=== PATIENT | female | born 1945 | race Caucasian/White ===

== ENCOUNTER → 2017-11-23 10:15 | Outpatient (CLI) | payer MEDICARE, BC, SELFPAY ==
--- NOTE | 2017-11-23 10:20 | RAD_ITS ---
STUDY: X-RAY - ABDOMEN/PELVIS REASON FOR EXAM: Female, 72 years old. Verification of common bile duct placement. I TECHNIQUE: Upright views of the abdomen were obtained. COMPARISON: Comparison is made with prior study dated October 12, 2017. FINDINGS: Elevation of the right hemidiaphragm. The lung bases are clear. There is an unremarkable bowel gas pattern. There is no demonstrated free abdominal air. The appearance of the common bile duct stent is unchanged. Normal soft tissue structures. Normal visualized osseous structures. RAD/Abdomen Single View IMPRESSION: Stable appearance of the common bile duct stent. Electronically Signed: Efrain Rawls MD at 15:57 EST Tel [phone], Service support ,
== END ==
PROVIDERS: Family Provider Family Medicine Geriatric Medicine; PCP Family Medicine Geriatric Medicine; Visit Provider Internal Medicine Gastroenterology
DX: Z96.89 Presence of other specified functional implants (principal)
CPT/HCPCS: 74018

== ENCOUNTER 2017-11-24 12:20 | Day surgery (SDC) | payer MEDICARE, BC, SELFPAY ==
[2017-11-24 12:46] VITALS: BP 166/63; PULSE 76; RESP 16; TEMP 36.8; O2SAT 100; BMI 32.2
[2017-11-24 13:01] LABS: Bedside Glucose 120 mg/dL (70-110)
--- NOTE | 2017-11-24 14:00 | RAD_ITS ---
STUDY: ERCP. REASON FOR EXAM: Female, 72 years old. Biliary stent removal. 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 COMPARISON: Comparison is made with prior examination dated August 11, 2017. FINDINGS: The biliary stent has been removed. Contrast was injected into the common bile duct. No intraluminal filling defect is seen. RAD/ERCP Biliary Only IMPRESSION: Removal of the biliary stent. No filling defect is seen. Electronically Signed: Efrain Rawls MD at 15:22 EST Tel [phone], Service support ,
[2017-11-24 15:15] VITALS: BP 138/72; BP 141/68; BP 166/63; PULSE 70; RESP 16; TEMP 36.6; O2SAT 98
--- NOTE | 2017-11-24 15:24 | OP.PCM_ITS ---
Operative Report Date of Procedure: 11/24/17 Preop diagnosis: Patient with cystic duct leak Postop diagnosis: ERCP with balloon cholangiogram no evidence of cystic duct leak Anesthesia: The MAC Instrument: Olympus duodenoscope Informed consent was taken prior to procedure. The patient was brought to the radiology suite[ she] was placed left shoulder down. Retropharynx was sprayed with topical Cetacaine spray. Anesthesia provided the MAC. The scope was passed under direct visualization down into the esophagus. The scope was advanced into the stomach pylorus was identified the duodenum was intubated. In the second portion of the duodenum was the ampulla along with a diverticulum. Stent was protruding from the common bile duct a snare was used to grasp the stent and pulled out through the channel. 9/12 mm balloon was used with a guidewire to cannulate the common bile duct under fluoroscopy. With a wire in the common bile duct tract contrast was injected under fluoroscopy visualization of the common bile duct and left hepatic duct. Cystic duct was identified and there was no extravasation of contrast from the cystic duct. Guidewire and balloon were withdrawn the stomach was decompressed the scope was withdrawn patient tolerated the procedure well. Impression: Cystic duct leak post a 10 Moldovan stent for approximately 3 months the cystic duct is completely closed Plan: Observe the patient postprocedure CC: Dr. Sterling and Dr. Jung
[2017-11-24 15:30] VITALS: BP 142/74; BP 166/63; PULSE 64; RESP 16; O2SAT 99
[2017-11-24 15:35] VITALS: BP 144/78; BP 166/63; PULSE 64; RESP 16; TEMP 36.7; O2SAT 100
== END 2017-11-24 16:10 | disposition home or self-care (01) ==
LOC: SDC 12:21 → AC 12:22
PROVIDERS: Family Provider Family Medicine Geriatric Medicine; PCP Family Medicine Geriatric Medicine; Visit Provider Internal Medicine Gastroenterology
PROC: (CPT 43260; principal; 2017-11-24 13:00)
DX: K91.89 Other postprocedural complications and disorders of digestive system (principal); I10 Essential (primary) hypertension; E11.9 Type 2 diabetes mellitus without complications; Z79.82 Long term (current) use of aspirin; Z79.899 Other long term (current) drug therapy; Z85.51 Personal history of malignant neoplasm of bladder
CPT/HCPCS: 00732; 43275; 74328; 82962; J7120; C1769; J1610

== ENCOUNTER → 2017-12-21 12:18 | Outpatient (CLI) | payer MEDICARE, BC, SELFPAY ==
[2017-12-21 12:48] LABS: Absolute Lymphocyte Count 1.28 X10^3/ul (0.83-4.51); Basophil# 0.03 X10^3/uL; Basophil% 0.5 % (0-1); Eosinophil# 0.14 X10^3/uL; Eosinophils% 2.3 % (0-5); Hematocrit 38.6 % (37-47); Hemoglobin 12.8 g/dl (12.0-15.0); Lymphocyte # 1.28 X10^3/ul (4.0); Lymphocyte % 21.1 % (19-41); Mean Corp Hgb Conc 33.2 g/gl (32-36); Mean Corpuscular Hgb 29.1 pg (27.0-32.0); Mean Corpuscular Volume 87.7 fL (81-99); Mean Platelet Vol. 11.2 fl (6.2-12.0); Monocyte# 0.59 X10^3/uL; Monocyte% 9.7 % (0-10); Neutrophil # 4.01 X10^3/uL (2.7-7.7); Neutrophil % 66.2 % (47-70); Platelet Count 264 K/mm3 (150-450); RBC Distribution Width CV 12.8 % (11.6-14.6); White Blood Count 6.1 K/mm3 (4.4-11.0)
[2017-12-21 12:56] LABS: POSITIVE COUNT NO; POSITIVE DIFFERENTIAL NO; POSITIVE MORPHOLOGY NO
[2017-12-21 13:05] LABS: Vitamin D,25 Hydroxy 17.8 ng/mL (29.95-100.01)
[2017-12-21 13:09] LABS: ALB/GLOB Ratio 1.1 RATIO (0.9-2.4); AST(SGOT) 18 U/L (15-37); Alanine Aminotransfer ALT/SGPT 23 U/L (13-56); Albumin, Serum 3.7 g/dL (3.2-5.0); Alkaline Phosphatase 76 U/L (45-117); Anion Gap 10 (5-15); BUN 14 mg/dL (7-18); BUN/Creat Ratio 27.7 RATIO (10-20); Calcium,Total 9.3 mg/dL (8.5-10.1); Chloride 101 mmol/L (98-107); EST Glomerular Filtration Rate 128 mL/min (>60); Est Glom Filt Rate - Afr Amer 155 mL/min (>60); Globulin 3.4 g/dL (2.2-4.2); Glucose 97 mg/dL (74-106); Potassium 3.9 mmol/L (3.5-5.1); Protein, Total 7.1 g/dL (6.4-8.2); Sodium Level 138 mmol/L (136-145); Thyroid Stim Hormone (TSH) 1.57 uIU/mL (0.358-3.74)
[2017-12-23 11:29] LABS: Hep C Antibodies 0.1 s/co ratio (0.0-0.9)
== END ==
PROVIDERS: Family Provider Family Medicine Geriatric Medicine; PCP Family Medicine Geriatric Medicine; Visit Provider Family Medicine Geriatric Medicine
DX: E11.9 Type 2 diabetes mellitus without complications (principal); E55.9 Vitamin D deficiency, unspecified; I10 Essential (primary) hypertension; Z13.89 Encounter for screening for other disorder
CPT/HCPCS: 36415; 80053; 82306; 84443; 85025; 86803

== ENCOUNTER → 2018-02-15 16:38 | Outpatient (CLI) | payer MEDICARE, BC, SELFPAY ==
--- NOTE | 2018-02-15 | CYSPIN_PTH ---
PATIENT: ITZ VEGAS LOC: [facility] U#:[id number] AGE/SX: 79/F ROOM: RE02/15/[address]: PRABHJOT Alonso : 1945 BED: DIS: SPEC #: [id number] RECD: 02/15/18 10:30 STATUS: RODO SERENE #: [id number] ANDREY: 02/15/18 00:[address]: Ena Hairston NP DEPT: CYTOLOGY RECD BY: Orestes Narayanan ENTERED: 02/16/18 12:24 SP TYPE: CYSPIN FL OTHR DR: Dr. Jaya Jung MD Tissues: Urine Procedures: Pap Stain (control) Special Stain Group II Cytospin Fluid HEADER OPERATION: Not noted PRE-OP DIAGNOSIS: History bladder cancer TISSUE SUBMITTED: Urine for cytology DIAGNOSIS CYTOLOGY Urine for cytology (cytospin): Negative for malignant cells. See comment. AM:ruslan 5/23/18 COMMENT The specimen primarily contains squamous epithelial cells. Clinical correlation is suggested. CYTOLOGY STUDY Slides are reviewed. CYTOLOGY GROSS Received is 70 ml of clear yellow fluid labeled with the patient's name and and designated per the requisition as urine. Submitted for cytology preparation. 02/16/18 TC:5 CPT: 20488
[2018-02-15 16:40] LABS: Cytology, Body Fluid / CSF SEE PATHOLOGY REPORT
== END ==
PROVIDERS: Family Provider Family Medicine Geriatric Medicine; PCP Family Medicine Geriatric Medicine; Visit Provider Nurse Practitioner Adult Health
DX: Z85.51 Personal history of malignant neoplasm of bladder (principal)
CPT/HCPCS: 88108; 88313

== ENCOUNTER → 2018-05-14 10:52 | Outpatient (CLI) | payer MEDICARE, BC, SELFPAY | PROVIDERS: Family Provider Family Medicine Geriatric Medicine; PCP Family Medicine Geriatric Medicine; Visit Provider Obstetrics & Gynecology | DX: Z12.31 Encounter for screening mammogram for malignant neoplasm of breast (principal) | CPT/HCPCS: 77063; 77067 ==

== ENCOUNTER → 2018-06-21 11:04 | Outpatient (CLI) | payer MEDICARE, BC, SELFPAY ==
[2018-06-21 12:32] LABS: Absolute Lymphocyte Count 2.19 X10^3/ul (0.83-4.51); Absolute Neutrophil Count 4.9 X10^3/uL (2.0-7.7); Basophil# 0.04 X10^3/uL; Basophil% 0.5 % (0-1); Eosinophil# 0.12 X10^3/uL; Eosinophils% 1.5 % (0-5); Hemoglobin 12.7 g/dl (12.0-15.0); Lymphocyte # 2.19 X10^3/ul (4.0); Lymphocyte % 27.9 % (19-41); Mean Corp Hgb Conc 32.6 g/gl (32-36); Mean Corpuscular Hgb 29.3 pg (27.0-32.0); Mean Corpuscular Volume 90.1 fL (81-99); Mean Platelet Vol. 11.2 fl (6.2-12.0); Monocyte% 7.6 % (0-10); Neutrophil # 4.89 X10^3/uL (2.7-7.7); Neutrophil % 62.4 % (47-70); Platelet Count 267 K/mm3 (150-450); RBC Distribution Width CV 13.2 % (11.6-14.6); RBC Distribution Width SD 42.9 fl (35.1-43.9); Red Blood Count 4.33 M/mm3 (4.2-5.4); White Blood Count 7.9 K/mm3 (4.4-11.0)
[2018-06-21 12:35] LABS: POSITIVE COUNT NO; POSITIVE DIFFERENTIAL NO; POSITIVE MORPHOLOGY NO
[2018-06-21 12:54] LABS: Vitamin D,25 Hydroxy 52.9 ng/mL (29.95-100.01)
[2018-06-21 12:55] LABS: ALB/GLOB Ratio 0.9 RATIO (0.9-2.4); AST(SGOT) 18 U/L (15-37); Alanine Aminotransfer ALT/SGPT 30 U/L (13-56); Albumin, Serum 3.5 g/dL (3.2-5.0); Alkaline Phosphatase 76 U/L (45-117); Anion Gap 10 (5-15); BUN 13 mg/dL (7-18); BUN/Creat Ratio 20.6 RATIO (10-20); Calcium,Total 9.1 mg/dL (8.5-10.1); Chloride 102 mmol/L (98-107); Creatinine, Serum 0.63 mg/dL (0.55-1.02); EST Glomerular Filtration Rate 99 mL/min (>60); Est Glom Filt Rate - Afr Amer 120 mL/min (>60); Globulin 3.7 g/dL (2.2-4.2); Glucose 100 mg/dL (74-106); Protein, Total 7.2 g/dL (6.4-8.2); Sodium Level 139 mmol/L (136-145); Thyroid Stim Hormone (TSH) 1.35 uIU/mL (0.358-3.74)
== END ==
PROVIDERS: Family Provider Family Medicine Geriatric Medicine; PCP Family Medicine Geriatric Medicine; Visit Provider Family Medicine Geriatric Medicine
DX: E11.9 Type 2 diabetes mellitus without complications (principal); E55.9 Vitamin D deficiency, unspecified; I10 Essential (primary) hypertension
CPT/HCPCS: 36415; 80053; 82306; 84443; 85025

== ENCOUNTER 2018-08-16 14:32 | Inpatient (IN) | payer MEDICARE, BC, SELFPAY ==
[2018-08-16] VITALS (12 sets, daily range): BP systolic 116–154; BP diastolic 53–70; PULSE 77–115; RESP 18–27; TEMP 36.4–38.5; O2SAT 92–96; BMI 33.3; BMI 33.6
--- NOTE | 2018-08-16 14:50 | CT_ITS ---
STUDY: CT ABDOMEN AND PELVIS WITHOUT CONTRAST REASON FOR EXAM: Female, 72 years old. Abdominal pain, nausea and diarrhea over the past 2 hours. Diet-controlled diabetes. RADIATION DOSAGE (If Supplied By Facility): CTDIvol = ( 14.62 ) mGy, DLP = ( 713.64 ) mGycm TECHNIQUE: Transaxial images were obtained from the dome of the diaphragm to the symphysis pubis without oral contrast, and without intravenous contrast. Sagittal and coronal images were reconstructed. Individualized dose optimization techniques were used for this CT. COMPARISON: CT of the abdomen and pelvis, August 14, 2017. FINDINGS: The visualized lung bases are unremarkable. There is resolution of the bilateral pleural effusions and atelectasis seen on the prior study. The visualized portions of the heart are within normal limits. There is hepatomegaly with diffuse hepatic enlargement. The liver is diffusely fatty infiltrated without mass. There is resolution of the pneumobilia and biliary stent seen on the prior study. Normal gallbladder and extrahepatic biliary system. There is no visualized gallstone. Normal spleen. Normal pancreas. Normal bilateral adrenal glands. The right kidney is of normal size and cortical thickness. There is mild stranding of perinephric fat. There is no evidence of mass or renal calculi. There is mild hydronephrosis there is ureterectasis and periureteral stranding to the urinary bladder without filling defect. Normal left kidney. Normal left ureter. Normal visualized stomach. Normal small intestine. Normal colon. There is non-visualization of the appendix. There is diffuse atherosclerotic calcification of the abdominal aorta, without a demonstrated aneurysm. Normal inferior vena cava. Normal retroperitoneum. Normal urinary bladder. Normal vaginal cuff. There are metallic staple along the right dome of the bladder as well as along left pelvic sidewall thought to be secondary to the hysterectomy. There is no pelvic lymphadenopathy. No free air or free fluid is seen within the peritoneal cavity. A surgical drain seen in the right lower quadrant no prior studies no longer present. There are small ventral hernias of omental fat. Abdominal wall appears otherwise unremarkable. There is flattening of lumbar lordosis with mild degenerative changes. CT/Abdomen/Pelvis without Cont IMPRESSION: 1. Right hydronephrosis and ureterectasis with mild perirenal and periureteral stranding. The findings suggest recently passed renal calculus. 2. Enlarged fatty infiltrated liver without mass. 3. Status post hysterectomy. 4. Ventral hernias of omental fat. 5. Degenerative changes of the lumbar spine. 6. Resolution of the bilateral pleural effusions seen on the prior study. 7. Resolution of the pneumobilia, biliary stent and surgical drain seen on the previous examination. Electronically Signed: Saurav Lai DO at 16:56 EST Tel [phone], Service support ,
--- NOTE | 2018-08-16 14:51 | EKG12_ITS ---
Test Reason : DYSRHYTHMIA Blood Pressure : / mmHG Vent. Rate : 101 BPM Atrial Rate : 101 BPM P-R Int : 184 ms QRS Dur : 092 ms QT Int : 358 ms P-R-T Axes : 075 003 065 degrees QTc Int : 464 ms Sinus tachycardia Possible Inferior infarct , age undetermined Abnormal ECG Confirmed by KRISTAL TRINH, GORGE ([id number]), editorial assistant YOU TALLEY ([id number]) on 08/18/2018 11:21:02 AM Referred By: KAYLA Confirmed By:GORGE GIRALDO MD
[2018-08-16] MEDS: Ondansetron 4 MG/2 ML Vial IV (15:03)
[2018-08-16] MEDS: 0.9% Normal Saline 1,000 ML 1000 ML IV (15:03)
[2018-08-16 15:04] LABS: Absolute Lymphocyte Count 0.64 X10^3/ul (0.83-4.51); Absolute Neutrophil Count 16.7 X10^3/uL (2.0-7.7); Basophil# 0.04 X10^3/uL; Basophil% 0.2 % (0-1); Differential Indicated SCAN CRITERIA MET; Eosinophil# 0.01 X10^3/uL; Eosinophils% 0.1 % (0-5); Hematocrit 39.4 % (37-47); Hemoglobin 13.4 g/dl (12.0-15.0); Lymphocyte # 0.64 X10^3/ul (4.0); Lymphocyte % 3.3 % (19-41); Mean Corpuscular Hgb 30.2 pg (27.0-32.0); Mean Corpuscular Volume 88.9 fL (81-99); Mean Platelet Vol. 11.1 fl (6.2-12.0); Monocyte# 1.83 X10^3/uL; Monocyte% 9.5 % (0-10); Neutrophil # 16.73 X10^3/uL (2.7-7.7); Neutrophil % 86.6 % (47-70); POSITIVE COUNT NO; POSITIVE DIFFERENTIAL YES; POSITIVE MORPHOLOGY NO; Platelet Count 236 K/mm3 (150-450); RBC Distribution Width CV 13.1 % (11.6-14.6); RBC Distribution Width SD 42.3 fl (35.1-43.9); Red Blood Count 4.43 M/mm3 (4.2-5.4); White Blood Count 19.3 K/mm3 (4.4-11.0)
[2018-08-16 15:15] LABS: Anion Gap 9 (5-15); BUN 22 mg/dL (7-18); BUN/Creat Ratio 28.1 RATIO (10-20); Calcium,Total 9.2 mg/dL (8.5-10.1); Chloride 106 mmol/L (98-107); Creatinine, Serum 0.78 mg/dL (0.55-1.02); EST Glomerular Filtration Rate 77 mL/min (>60); Est Glom Filt Rate - Afr Amer 93 mL/min (>60); Estimated Creatinine Clearance 42.68 ml/min; Glucose 154 mg/dL (74-106); Potassium 3.6 mmol/L (3.5-5.1); Sodium Level 139 mmol/L (136-145)
[2018-08-16 15:21] LABS: Differential Comment SCANNED
--- NOTE | 2018-08-16 15:50 | ED.DCSUM_ITS ---
- ER Visit Summary Date of Service: 08/16/18 Chief Complaint: Abdominal pain flank pain and syncope History of Present Illness: The patient is a 72 F presenting for evaluation secondary to abdominal pain flank pain and syncope. Patient states that today she had a relatively precipitous onset of abdominal pain, right-sided back pain, nausea without vomiting, and some loose stools. Patient states that she had 2 episodes of non-bloody non-mucousy stools. Patient states that she suffered a syncopal episode while she was in the bathroom. Her found her, and states that she was acting somewhat confused. Patient denies any fevers. She does endorse that she has some dysuria, and states that she has been having some since she had cystoscopy performed approximately a week ago for surveillance secondary to a history of bladder cancer. She denies any chest pain. Patient has a history of diet-controlled diabetes hypertension and high cholesterol. Physical Examination: Vital signs notable for tachycardia with a heart rate of 109. Well-nourished female no acute distress. Dry mucous membranes noted, neck was supple no JVD. Heart was tachycardic and regular. Lungs sound clear. Abdomen was soft and nontender with no real reproducible tenderness to palpation, but patient complaining of pain in the right lower quadrant. Abdomen was nondistended normal bowel sounds no masses. Peripheral pulses were +2 and symmetric remainder of physical otherwise unremarkable. Test Results: CBC demonstrates leukocytosis of 19, chemistry unremarkable troponin negative. EKG demonstrates sinus tachycardia with a rate of 101. T waves are now upright, but there appears to be development of inferior Q waves which are new from an EKG in July of last year. CT abdomen and pelvis demonstrates evidence of perinephric stranding on the right Emergency Department Course and Treatment: Patient presented for evaluation secondary to abdominal pain and syncope. Laboratory workup shows leukocytosis. Urinalysis currently pending, but CT shows evidence of possible right-sided pyelonephritis. Regardless, patient has EKG changes, in the setting of syncope and I believe she requires admission. Patient will be given antibiotics upon receipt of her urinalysis, and will be admitted to the hospitalist after her CT is resulted. Disposition: Admission Impression: 1. Pyelonephritis 2. Abdominal pain 3. Leukocytosis 4. Syncope with EKG changes This note was generated with [employer] dictation software. It may contain incorrect words, spelling, and punctuation that were not noted in review of the chart prior to signing ED Disposition - Plan for ED Patient: Chief Complaint: Abd Pain Referrals: Jaya Jung Chi, MD [Primary Care Provider] -
[2018-08-16 16:03] LABS: Mucous, Urine 0 SEEN /hpf (<or=2+)
[2018-08-16] MEDS: Ceftriaxone 1 GM/50 ML BAG IV (16:05)
[2018-08-16 16:17] LABS: Color, Urine Yellow (Yellow); Glucose, Dipstick Normal (Normal); Ketone-Dipstick Negative (Negative); Leukocyte Esterase-Dipstick 500 /ul (Negative); Nitrite-Dipstick Positive (Negative); Occult Blood-Urine 250 /ul (Negative); Protein-Dipstick 100 mg/dl (Negative); Urine Bilirubin Dipstick Negative (Negative); Urine Clarity Cloudy (Clear); Urine Urobilinogen Normal (Normal)
[2018-08-16 16:36] LABS: Bacteria 2+ /hpf (None Seen); Red Blood Cells-Urine 10-25 SEEN /hpf (0-5); Squamous Epithelial Cells - UA 0-5 SEEN /hpf (5-10); White Blood Cells >100 SEEN /hpf (0-5)
[2018-08-16] MEDS: Ibuprofen 600 MG Tablet PO (17:00)
--- NOTE | 2018-08-16 17:42 | PCM.HP.STD ---
Problem List (1) Near syncope Status: Acute (2) Sepsis Status: Acute (3) Acute pyelonephritis Status: Acute (4) HLD (hyperlipidemia) Status: Chronic (5) HTN (hypertension) Status: Chronic History of Present Illness Date of Admission: 08/16/18 Chief Complaint: Dysuria, lower abdominal pain. The patient is a 72 year old F with past medical history as mentioned above presented to the emergency room because of dysuria and lower abdominal pain. Her symptoms started 5 days ago. 5 days ago, she had cystoscopy done as outpatient for history of bladder polyps and she was informed by the urologist that she had bladder mass that require biopsy which will be done in 3 weeks. Starting that date of cystoscopy, patient started complaining of lower abdominal pain, suprapubic in location, dull aching pain, 5 out of 10 in severity, extends up to the right side of her groin and close to the right flank, associated with dysuria as well as rigors and chills and without aggravating or relieving factors. She mentioned that she felt hot in the last couple of days but she did not check her temperature. She reported associated weakness and malaise. Today at home, she was standing and she felt dizzy and she was about to pass out. She stated that she was alert and awake of the event and she did not lose her consciousness completely. She denied chest pain, shortness of breath or palpitation. In the emergency department, she was febrile, tachycardic, blood pressure was stable and her pulse ox was normal. Routine blood work was marked before a significant leukocytosis with neutrophilia, otherwise normal. Lactic acid was normal. EKG revealed sinus tachycardia, no acute ischemic changes or cardiac arrhythmias. Her troponin was negative. CT scan abdomen and pelvis without contrast revealed right hydronephrosis and ureterectasis with perirenal and periureteral stranding. She is being admitted for acute pyelonephritis with sepsis. Past Medical History Past Medical History (Chronic Problems): Chronic Problems (Last Updated 08/16/18 @ 17:41 by Kristian Gómez MD) Postoperative atrial fibrillation (Chronic) HLD (hyperlipidemia) (Chronic) HTN (hypertension) (Chronic) Medical History: Medical History (Last Updated 08/16/18 @ 17:41 by Kristian Gómez MD) Postoperative atrial fibrillation (Chronic) I97.89, I48.91 HLD (hyperlipidemia) (Chronic) E78.5 HTN (hypertension) (Chronic) I10 Long-term use of high-risk medication Z79.899 Allergies codeine Allergy (Verified 08/16/18 16:29) Rash Penicillins [PCN] Allergy (Verified 08/16/18 14:35) Rash Home Medications: Ambulatory Orders Medication Instructions Recorded Aspirin [Aspir-Low] 81 mg PO DAILY 08/08/17 Clonidine HCl 0.1 mg PO BID 08/08/17 Ergocalciferol [Vitamin D] 50,000 units PO VASQUEZ 08/08/17 Tizanidine HCl [Zanaflex] 4 mg PO BID PRN 08/08/17 Zolpidem Tartrate [Ambien] 10 mg PO QHS PRN 08/08/17 metoprolol succinate ER 50 mg 50 mg PO DAILY 09/08/17 tablet,extended release 24 hr valsartan 320 1 tab PO DAILY 09/08/17 mg-hydrochlorothiazide 12.5 mg tablet ALPRAZolam [Xanax] 1 mg PO BID PRN PRN 08/16/18 Atorvastatin Calcium [Lipitor] 40 mg PO QHS 08/16/18 Buspirone HCl 10 mg PO TID 08/16/18 Surgical History: cholecystectomy Psychiatric History: Anxiety, Depression 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 Denies: Fever Eyes: Denies: Blurred vision, Double vision, Drainage, Redness HEENT: Denies: Difficulty Hearing, Dysphasia, Ear Pain, Eye Pain, Nasal Congestion, Post Nasal Drip, Sore Throat Cardiovascular: Reports: Light Headedness. Denies: Chest Pain, Chest Pressure, Chest Tightness, Edema, Palpitations, Paroxysmal Noc. Dyspnea, Syncope Respiratory: Denies: Cough, Pleuritic Pain, Shortness of Breath, Sputum production, Wheezing Gastrointestinal: Reports: Abdominal Pain. Denies: Constipation, Diarrhea, Hematochezia, Nausea, Melena, Vomiting Genitourinary: Reports: Dysuria. Denies: Frequency, Hematuria Musculoskeletal: Denies: Arm Pain, Back Pain, Foot Pain Skin: Denies: Dryness, Rash Neurological: Denies: Balance problems, Double vision, Slurred speech, Confusion, Focal weakness, Headaches, Incoordination Psychiatric: Reports: Anxiety, Depression Endocrine: Denies: Change in Body Habitus, Polydipsia VTE Information - Inpt Only VTE Present on Admission: No VTE Mechan Device Prophylaxis: None VTE Pharm Prophylaxis ordered?: Yes Patient Problems: Active and Suspected Problems (Last Updated 08/16/18 @ 17:41 by Kristian Gómez MD) Near syncope (Acute) Sepsis (Acute) Acute pyelonephritis (Acute) - Physical Exam General: Alert, Oriented x3, Cooperative, No apparent distress HEENT: Atraumatic, PERRLA, EOMI, Normocephalic Oral: Moist Mucosa, No Gingival or Mucosal Lesions/ Ulcerations Neck: Supple, No JVD, Negative Carotid Bruits, Trachea Midline, Thyroid Normal Size and Texture Lungs: Clear to auscultation, No rhonchi, No wheeze, No rales, Diminished Cardiovascular: Regular rate, Regular Rhythm, Normal S1, Normal S2, No murmurs, PMI Normal, Tachycardic Abdomen: Bowel Sounds Present, Soft, Non Tender, Non-Distended, No Hepato-splenomegaly Extremities: No clubbing, No cyanosis, No edema Skin: No rashes, No breakdown Lymphatic: No Cervical, Supraclavicular, or Inguinal Adenopathy Neurological: Cranial nerves II-XII grossly intact, Motor Exam 5/5 strength throughout Psych/Mental Status: Normal Affect, Appropriate, Alert and oriented to time, place, person, mood and affect Vital Signs Temp Pulse Resp BP Pulse Ox 100.6 F H 109 H 18 139/70 H 93 08/16/18 16:25 08/16/18 14:33 08/16/18 14:33 08/16/18 14:33 08/16/18 14:33 Oxygen Delivery Method Room Air Weight: 188 lb Body Mass Index (BMI) 33.3 Laboratory Tests Past 24 Hrs 08/16/18 08/16/18 08/16/18 14:40 14:40 15:53 WBC 19.3 H RBC 4.43 Hgb 13.4 Hct 39.4 MCV 88.9 MCH 30.2 MCHC 34.0 RDW 13.1 RDW Differential 42.3 Plt Count 236 MPV 11.1 Immature Gran % (Auto) 0.300 Neut % (Auto) 86.6 H Lymph % (Auto) 3.3 L Nicholas % (Auto) 9.5 Eos % (Auto) 0.1 Baso % (Auto) 0.2 Absolute Neuts (auto) 16.7 H Absolute Lymphs (auto) 0.64 L Total Counted Not Reportable Differential Comment SCANNED Sodium 139 Potassium 3.6 Chloride 106 Carbon Dioxide 24.0 Anion Gap 9 BUN 22 H Creatinine 0.78 Estim Creat Clear Calc 42.68 Est GFR (MDRD) Af Amer 93 Est GFR (MDRD) Non-Af 77 BUN/Creatinine Ratio 28.1 H Glucose 154 H Calcium 9.2 Troponin I < 0.015 Urine Color Yellow Urine Clarity Cloudy Urine pH 6.0 Ur Specific [place] 1.010 Urine Protein 100 H Urine Glucose (UA) Normal Urine Ketones Negative Urine Occult Blood 250 H Urine Nitrite Positive H Urine Bilirubin Negative Urine Urobilinogen Normal Ur Leukocyte Esterase 500 H Urine RBC 10-25 SEEN Urine WBC >100 SEEN Ur Squamous Epith Cells 0-5 SEEN Urine Bacteria 2+ Urine Mucus 0 SEEN Clinical Impression(s) from Imaging Studies Abdomen/Pelvis CT 08/16/18 14:50 IMPRESSION: 1. Right hydronephrosis and ureterectasis with mild perirenal and periureteral stranding. The findings suggest recently passed renal calculus. 2. Enlarged fatty infiltrated liver without mass. 3. Status post hysterectomy. 4. Ventral hernias of omental fat. 5. Degenerative changes of the lumbar spine. 6. Resolution of the bilateral pleural effusions seen on the prior study. 7. Resolution of the pneumobilia, biliary stent and surgical drain seen on the previous examination. Electronically Signed: Saurav Lai DO at 16:56 EST Tel [phone], Service support , Assessment/Plan All Active Problems (Last Updated 08/16/18 @ 17:41 by Kristian Gómez MD) Near syncope (Acute) Sepsis (Acute) Acute pyelonephritis (Acute) This is a 72 years old female patient presented to the emergency room because of dysuria, suprapubic abdominal pain and chills in context of recent history of cystoscopy, found to have acute pyelonephritis and sepsis. #1 acute pyelonephritis/sepsis: Urine analysis revealed cloudy urine, positive for nitrite and leukocyte esterase, there was more than 100 WBC and 2+ bacteria consistent with pyuria. CT scan abdomen and pelvis without contrast reviewed, revealed right hydronephrosis with perirenal and periureteral stranding. Patient had cystoscopy done 5 days ago and she is at risk for gram-negative and enterococcal bacteremia. Lactic acid is normal. She is tachycardic, febrile, blood pressure stable. Plan: Admit to PCU, cardiac monitoring, IV fluids, blood culture, urine culture, start IV cefepime because she is allergic to penicillin, and Protopic chart, repeat CBC and BMP tomorrow morning, Tylenol as needed, antiemetics, PT OT evaluation and treatment. #2 right hydronephrosis: With possible passed kidney stone. She had recent cystoscopy done for bladder mass. Her kidney function is normal. Plan: Urology consult. #3 near syncope: Probably vasovagal episode. Patient mentioned that she was not completely out of and she was aware of surroundings. She reported dizziness before the episode. She denied chest pain or palpitations. EKG revealed sinus tachycardia, no cardiac arrhythmias or acute ischemic changes. Troponin is negative. Plan to treat underlying infection and sepsis. #4 status post recent cystoscopy: This was done for bladder mass according to the patient, no documents available. Plan to consult urology as above. #5 hypertension: Blood pressure stable, continue metoprolol, clonidine, valsartan and HCTZ. #6 hyperlipidemia: Continue statins. #7 depression/anxiety: Continue Xanax and buspirone. #8 DVT prophylaxis: subcu Lovenox. This note was generated with [employer] dictation software. It may contain incorrect words, spelling, and punctuation that were not noted in checking the note before signing. Code Visit Inpatient E&M: 67439 Init Hosp L3
--- NOTE | 2018-08-16 17:50 | HP.PCM_ITS ---
Problem List (1) Near syncope Status: Acute (2) Sepsis Status: Acute (3) Acute pyelonephritis Status: Acute (4) HLD (hyperlipidemia) Status: Chronic (5) HTN (hypertension) Status: Chronic History of Present Illness Date of Admission: 08/16/18 Chief Complaint: Dysuria, lower abdominal pain. The patient is a 72 year old F with past medical history as mentioned above presented to the emergency room because of dysuria and lower abdominal pain. Her symptoms started 5 days ago. 5 days ago, she had cystoscopy done as outpatient for history of bladder polyps and she was informed by the urologist that she had bladder mass that require biopsy which will be done in 3 weeks. Starting that date of cystoscopy, patient started complaining of lower abdominal pain, suprapubic in location, dull aching pain, 5 out of 10 in severity, extends up to the right side of her groin and close to the right flank, associated with dysuria as well as rigors and chills and without aggravating or relieving factors. She mentioned that she felt hot in the last couple of days but she did not check her temperature. She reported associated weakness and malaise. Today at home, she was standing and she felt dizzy and she was about to pass out. She stated that she was alert and awake of the event and she did not lose her consciousness completely. She denied chest pain, shortness of breath or palpitation. In the emergency department, she was febrile, tachycardic, blood pressure was stable and her pulse ox was normal. Routine blood work was marked before a significant leukocytosis with neutrophilia, otherwise normal. Lactic acid was normal. EKG revealed sinus tachycardia, no acute ischemic changes or cardiac arrhythmias. Her troponin was negative. CT scan abdomen and pelvis without contrast revealed right hydronephrosis and ureterectasis with perirenal and periureteral stranding. She is being admitted for acute pyelonephritis with sepsis. Past Medical History Past Medical History (Chronic Problems): Chronic Problems (Last Updated 08/16/18 @ 17:41 by Kristian Gómez MD) Postoperative atrial fibrillation (Chronic) HLD (hyperlipidemia) (Chronic) HTN (hypertension) (Chronic) Medical History: Medical History (Last Updated 08/16/18 @ 17:41 by Kristian Gómez MD) Postoperative atrial fibrillation (Chronic) I97.89, I48.91 HLD (hyperlipidemia) (Chronic) E78.5 HTN (hypertension) (Chronic) I10 Long-term use of high-risk medication Z79.899 Allergies codeine Allergy (Verified 08/16/18 16:29) Rash Penicillins [PCN] Allergy (Verified 08/16/18 14:35) Rash Home Medications: Ambulatory Orders Medication Instructions Recorded Aspirin [Aspir-Low] 81 mg PO DAILY 08/08/17 Clonidine HCl 0.1 mg PO BID 08/08/17 Ergocalciferol [Vitamin D] 50,000 units PO VASQUEZ 08/08/17 Tizanidine HCl [Zanaflex] 4 mg PO BID PRN 08/08/17 Zolpidem Tartrate [Ambien] 10 mg PO QHS PRN 08/08/17 metoprolol succinate ER 50 mg 50 mg PO DAILY 09/08/17 tablet,extended release 24 hr valsartan 320 1 tab PO DAILY 09/08/17 mg-hydrochlorothiazide 12.5 mg tablet ALPRAZolam [Xanax] 1 mg PO BID PRN PRN 08/16/18 Atorvastatin Calcium [Lipitor] 40 mg PO QHS 08/16/18 Buspirone HCl 10 mg PO TID 08/16/18 Surgical History: cholecystectomy Psychiatric History: Anxiety, Depression POST ANESTHESIA CARE UNIT NURSE History: No pertinent POST ANESTHESIA CARE UNIT NURSE history Smoking Status: Never smoker Alcohol: None Drugs: None - *Family History Maternal Family History: Family History (Last Reviewed 03/09/18 @ 15:48 by Jonathan Gerard MD) Mother Atrial fibrillation Father Atrial fibrillation CVA (cerebral vascular accident) Brother CVA (cerebral vascular accident) Review of Systems Constitutional: Reports: Anorexia, Chills, Malaise, Weakness. Denies: Fever Eyes: Denies: Blurred vision, Double vision, Drainage, Redness HEENT: Denies: Difficulty Hearing, Dysphasia, Ear Pain, Eye Pain, Nasal Congestion, Post Nasal Drip, Sore Throat Cardiovascular: Reports: Light Headedness. Denies: Chest Pain, Chest Pressure, Chest Tightness, Edema, Palpitations, Paroxysmal Noc. Dyspnea, Syncope Respiratory: Denies: Cough, Pleuritic Pain, Shortness of Breath, Sputum production, Wheezing Gastrointestinal: Reports: Abdominal Pain. Denies: Constipation, Diarrhea, Hematochezia, Nausea, Melena, Vomiting Genitourinary: Reports: Dysuria. Denies: Frequency, Hematuria Musculoskeletal: Denies: Arm Pain, Back Pain, Foot Pain Skin: Denies: Dryness, Rash Neurological: Denies: Balance problems, Double vision, Slurred speech, Confusion, Focal weakness, Headaches, Incoordination Psychiatric: Reports: Anxiety, Depression Endocrine: Denies: Change in Body Habitus, Polydipsia VTE Information - Inpt Only VTE Present on Admission: No VTE Mechan Device Prophylaxis: None VTE Pharm Prophylaxis ordered?: Yes Patient Problems: Active and Suspected Problems (Last Updated 08/16/18 @ 17:41 by Kristian Gómez MD) Near syncope (Acute) Sepsis (Acute) Acute pyelonephritis (Acute) - Physical Exam General: Alert, Oriented x3, Cooperative, No apparent distress HEENT: Atraumatic, PERRLA, EOMI, Normocephalic Oral: Moist Mucosa, No Gingival or Mucosal Lesions/ Ulcerations Neck: Supple, No JVD, Negative Carotid Bruits, Trachea Midline, Thyroid Normal Size and Texture Lungs: Clear to auscultation, No rhonchi, No wheeze, No rales, Diminished Cardiovascular: Regular rate, Regular Rhythm, Normal S1, Normal S2, No murmurs, PMI Normal, Tachycardic Abdomen: Bowel Sounds Present, Soft, Non Tender, Non-Distended, No Hepato- splenomegaly Extremities: No clubbing, No cyanosis, No edema Skin: No rashes, No breakdown Lymphatic: No Cervical, Supraclavicular, or Inguinal Adenopathy Neurological: Cranial nerves II-XII grossly intact, Motor Exam 5/5 strength th roughout Psych/Mental Status: Normal Affect, Appropriate, Alert and oriented to time, place, person, mood and affect Vital Signs Temp Pulse Resp BP Pulse Ox 100.6 F H 109 H 18 139/70 H 93 08/16/18 16:25 08/16/18 14:33 08/16/18 14:33 08/16/18 14:33 08/16/18 14:33 Oxygen Delivery Method Room Air Weight: 188 lb Body Mass Index (BMI) 33.3 Laboratory Tests Past 24 Hrs 08/16/18 08/16/18 08/16/18 14:40 14:40 15:53 WBC 19.3 H RBC 4.43 Hgb 13.4 Hct 39.4 MCV 88.9 MCH 30.2 MCHC 34.0 RDW 13.1 RDW Differential 42.3 Plt Count 236 MPV 11.1 Immature Gran % (Auto) 0.300 Neut % (Auto) 86.6 H Lymph % (Auto) 3.3 L [place] % (Auto) 9.5 Eos % (Auto) 0.1 Baso % (Auto) 0.2 Absolute Neuts (auto) 16.7 H Absolute Lymphs (auto) 0.64 L Total Counted Not Reportable Differential Comment SCANNED Sodium 139 Potassium 3.6 Chloride 106 Carbon Dioxide 24.0 Anion Gap 9 BUN 22 H Creatinine 0.78 Estim Creat Clear Calc 42.68 Est GFR (MDRD) Af Amer 93 Est GFR (MDRD) Non-Af 77 BUN/Creatinine Ratio 28.1 H Glucose 154 H Calcium 9.2 Troponin I < 0.015 Urine Color Yellow Urine Clarity Cloudy Urine pH 6.0 Ur Specific [place] 1.010 Urine Protein 100 H Urine Glucose (UA) Normal Urine Ketones Negative Urine Occult Blood 250 H Urine Nitrite Positive H Urine Bilirubin Negative Urine Urobilinogen Normal Ur Leukocyte Esterase 500 H Urine RBC 10-25 SEEN Urine WBC >100 SEEN Ur Squamous Epith Cells 0-5 SEEN Urine Bacteria 2+ Urine Mucus 0 SEEN Clinical Impression(s) from Imaging Studies Abdomen/Pelvis CT 08/16/18 14:50 IMPRESSION: 1. Right hydronephrosis and ureterectasis with mild perirenal and periureteral stranding. The findings suggest recently passed renal calculus. 2. Enlarged fatty infiltrated liver without mass. 3. Status post hysterectomy. 4. Ventral hernias of omental fat. 5. Degenerative changes of the lumbar spine. 6. Resolution of the bilateral pleural effusions seen on the prior study. 7. Resolution of the pneumobilia, biliary stent and surgical drain seen on the previous examination. Electronically Signed: Saurav Lai DO at 16:56 EST Tel [phone], Service support , Assessment/Plan All Active Problems (Last Updated 08/16/18 @ 17:41 by Kristian Gómez MD) Near syncope (Acute) Sepsis (Acute) Acute pyelonephritis (Acute) This is a 72 years old female patient presented to the emergency room because of dysuria, suprapubic abdominal pain and chills in context of recent history of cystoscopy, found to have acute pyelonephritis and sepsis. #1 acute pyelonephritis/sepsis: Urine analysis revealed cloudy urine, positive for nitrite and leukocyte esterase, there was more than 100 WBC and 2+ bacteria consistent with pyuria. CT scan abdomen and pelvis without contrast reviewed, revealed right hydronephrosis with perirenal and periureteral stranding. Patient had cystoscopy done 5 days ago and she is at risk for gram-negative and enterococcal bacteremia. Lactic acid is normal. She is tachycardic, febrile, blood pressure stable. Plan: Admit to PCU, cardiac monitoring, IV fluids, blood culture, urine culture, start IV cefepime because she is allergic to penicillin, and Protopic chart, repeat CBC and BMP tomorrow morning, Tylenol as needed, antiemetics, PT OT evaluation and treatment. #2 right hydronephrosis: With possible passed kidney stone. She had recent cystoscopy done for bladder mass. Her kidney function is normal. Plan: Urology consult. #3 near syncope: Probably vasovagal episode. Patient mentioned that she was not completely out of and she was aware of surroundings. She reported dizziness before the episode. She denied chest pain or palpitations. EKG revealed sinus tachycardia, no cardiac arrhythmias or acute ischemic changes. Troponin is negative. Plan to treat underlying infection and sepsis. #4 status post recent cystoscopy: This was done for bladder mass according to the patient, no documents available. Plan to consult urology as above. #5 hypertension: Blood pressure stable, continue metoprolol, clonidine, valsartan and HCTZ. #6 hyperlipidemia: Continue statins. #7 depression/anxiety: Continue Xanax and buspirone. #8 DVT prophylaxis: subcu Lovenox. This note was generated with [employer] dictation software. It may contain incorrect words, spelling, and punctuation that were not noted in checking the note before signing. Code Visit Inpatient E&M: 23853 Init Hosp L3
[2018-08-16 18:41] LABS: Lactic Acid 1.3 mmol/L (0.4-2.0)
[2018-08-16] MEDS: 0.9% Normal Saline 1,000 ML 100 ML IV (18:53)
[2018-08-16] MEDS: 0.9% NaCl Peripheral Flush Adult/Peds IV (18:55)
[2018-08-16] MEDS: Acetaminophen 325 MG Tablet 650 MG PO (19:10)
[2018-08-16] MEDS: busPIRone 15 MG TABLET 10 MG PO (21:52)
[2018-08-16] MEDS: cloNIDine HCl 0.1 MG Tablet PO (21:53)
[2018-08-16] MEDS: Atorvastatin Calcium 40 MG Tablet PO (21:53)
[2018-08-17] VITALS (11 sets, daily range): BP systolic 136–155; BP diastolic 55–63; PULSE 76–95; RESP 18–20; TEMP 37.1–38.2; O2SAT 94–99
[2018-08-17] MEDS: Ondansetron 4 MG/2 ML Vial IV ×2 (04:53→16:49)
[2018-08-17] MEDS: 0.9% NaCl Peripheral Flush Adult/Peds IV ×3 (04:53→16:49)
[2018-08-17] MEDS: Acetaminophen 325 MG Tablet 650 MG PO ×3 (04:53→20:39)
[2018-08-17] MEDS: busPIRone 15 MG TABLET 10 MG PO ×3 (05:03→20:38)
[2018-08-17] MEDS: 0.9% Normal Saline 1,000 ML 100 ML IV ×2 (05:07→15:16)
[2018-08-17 07:24] LABS: Absolute Lymphocyte Count 1.18 X10^3/ul (0.83-4.51); Absolute Neutrophil Count 15.7 X10^3/uL (2.0-7.7); Basophil# 0.03 X10^3/uL; Basophil% 0.2 % (0-1); Eosinophil# 0.01 X10^3/uL; Eosinophils% 0.1 % (0-5); Hematocrit 34.7 % (37-47); Hemoglobin 11.4 g/dl (12.0-15.0); Lymphocyte # 1.18 X10^3/ul (4.0); Lymphocyte % 6.3 % (19-41); Mean Corp Hgb Conc 32.9 g/gl (32-36); Mean Corpuscular Hgb 29.8 pg (27.0-32.0); Mean Corpuscular Volume 90.6 fL (81-99); Mean Platelet Vol. 10.9 fl (6.2-12.0); Monocyte# 1.77 X10^3/uL; Monocyte% 9.5 % (0-10); Neutrophil # 15.69 X10^3/uL (2.7-7.7); Neutrophil % 83.6 % (47-70); Platelet Count 206 K/mm3 (150-450); RBC Distribution Width CV 13.3 % (11.6-14.6); RBC Distribution Width SD 43.4 fl (35.1-43.9); Red Blood Count 3.83 M/mm3 (4.2-5.4); White Blood Count 18.7 K/mm3 (4.4-11.0)
--- NOTE | 2018-08-17 07:24 | PN_ITS ---
Patient Problems: Active and Suspected Problems (Last Updated 08/16/18 @ 17:41 by Kristian Gómez MD) Near syncope (Acute) Sepsis (Acute) Acute pyelonephritis (Acute) Subjective: Patient was admitted with right-sided renal angle pain, suprapubic discomfort and pain, fever with chills and dysuria lower urinary tract symptoms after 5 days of cystoscopy suggestive of complicated UTI with pyelonephritis. Currently patient does not have renal angle pain Or suprapubic pain. On IV cefepime. Seen by urologist Dr. Alvarado Vitals/I&O's: Vital Signs Temp Pulse Resp BP Pulse Ox 100.3 F H 95 20 H 155/58 H 96 08/17/18 04:42 08/17/18 04:42 08/17/18 04:42 08/17/18 04:42 08/17/18 04:42 Oxygen Delivery Method Room Air Weight: 190 lb 0.615 oz Body Mass Index (BMI) 33.6 Intake and Output for Last 24 Hours 08/15/18 08/16/18 08/17/18 23:59 23:59 23:59 Intake Total 520 / 520 726 / 726 Balance 520 / 520 726 / 726 General: Alert, Oriented x3, Cooperative HEENT: Atraumatic, PERRLA, EOMI, Normocephalic Neck: Supple, No JVD, Negative Carotid Bruits Lungs: Clear to auscultation, Normal air movement, No rhonchi, No wheeze, No rales Cardiovascular: Regular rate, Regular Rhythm, Normal S1, Normal S2, No murmurs Abdomen: Bowel Sounds Present, Soft, Non-Distended, No Hepato-splenomegaly, Tender - Mild deep tenderness present over right renal angle. No suprapubic tenderness Extremities: No edema, Capillary Refill Less than 3 Seconds Skin: No rashes, No breakdown Musculoskeletal: No Tenderness to Palpation of Joints or Extremities, Arthritic Changes Neurological: Cranial nerves II-XII grossly intact Psych/Mental Status: Normal Affect, Appropriate Laboratory Results 08/16/18 14:40: WBC 19.3 H, RBC 4.43, Hgb 13.4, Hct 39.4, MCV 88.9, MCH 30.2, MCHC 34.0, RDW 13.1, RDW Differential 42.3, Plt Count 236, MPV 11.1, Immature Gran % (Auto) 0.300, Neut % (Auto) 86.6 H, Lymph % (Auto) 3.3 L, [place] % (Auto) 9.5, Eos % (Auto) 0.1, Baso % (Auto) 0.2, Absolute Neuts (auto) 16.7 H, Absolute Lymphs (auto) 0.64 L, Total Counted Not Reportable, Differential Comment SCANNED 08/16/18 14:40: Sodium 139, Potassium 3.6, Chloride 106, Carbon Dioxide 24.0, Anion Gap 9, BUN 22 H, Creatinine 0.78, Estim Creat Clear Calc 42.68, Est GFR (MDRD) Af Amer 93, Est GFR (MDRD) Non-Af 77, BUN/Creatinine Ratio 28.1 H, Glucose 154 H, Calcium 9.2, Troponin I < 0.015 08/16/18 15:53: Urine Color Yellow, Urine Clarity Cloudy, Urine pH 6.0, Ur Specific [place] 1.010, Urine Protein 100 H, Urine Glucose (UA) Normal, Urine Ketones Negative, Urine Occult Blood 250 H, Urine Nitrite Positive H, Urine Bilirubin Negative, Urine Urobilinogen Normal, Ur Leukocyte Esterase 500 H, Urine RBC 10-25 SEEN, Urine WBC >100 SEEN, Ur Squamous Epith Cells 0-5 SEEN, Urine Bacteria 2+, Urine Mucus 0 SEEN 08/16/18 17:50: Lactic Acid 1.3 08/17/18 07:00: WBC Pending, RBC Pending, Hgb Pending, Hct Pending, MCV Pending, MCH Pending, MCHC Pending, RDW Pending, RDW Differential Pending, Plt Count Pending, Neut % (Auto) Pending, Absolute Neuts (auto) Pending, Total Counted Pending 08/17/18 07:00: Sodium Pending, Potassium Pending, Chloride Pending, Carbon Dioxide Pending, Anion Gap Pending, BUN Pending, Creatinine Pending, Est GFR (MD MARTINEZ) Af Amer Pending, Est GFR (MDRD) Non-Af Pending, BUN/Creatinine Ratio Pending, Glucose Pending, Calcium Pending Current Medications Acetaminophen (Tylenol) 650 mg PO Q6H PRN PRN PRN Reason: Fever, headache, pain Last Admin: 08/17/18 04:53 Dose: 650 mg Alprazolam (Xanax) 1 mg PO BID PRN PRN PRN Reason: ANXIETY Aspirin (Ecotrin) 81 mg PO DAILY@0800 [facility] Atorvastatin Calcium (Lipitor) 40 mg PO QHS [facility] Last Admin: 08/16/18 21:53 Dose: 40 mg Buspirone HCl (Buspar) 10 mg PO TID [facility] Last Admin: 08/17/18 05:03 Dose: 10 mg Clonidine (Catapres) 0.1 mg PO BID [facility] Last Admin: 08/16/18 21:53 Dose: 0.1 mg Enoxaparin Sodium (Lovenox) 40 mg SC DAILY@1000 [facility] Hydrochlorothiazide (Hydrochlorothiazide) 12.5 mg PO DAILY [facility] Sodium Chloride () 1,000 mls @ 100 mls/hr IV .Q10H [facility] Last Admin: 08/17/18 05:07 Dose: 100 mls/hr Cefepime HCl 2 gm/ Sodium (Chloride) 50 mls @ 100 mls/hr IV Q12@0600,1800 [facility] Last Admin: 08/17/18 05:07 Dose: 100 mls/hr Sodium Chloride () 250 mls @ 15 mls/hr IV .[id number] PRN PRN Reason: SALINE FLUSH Losartan Potassium (Cozaar) 100 mg PO DAILY [facility] Magnesium Hydroxide (Milk Of Magnesia) 30 ml PO DAILY PRN PRN Reason: Constipation Metoprolol Succinate (Toprol Xl (Beta Penny)) 50 mg PO DAILY [facility] Ondansetron HCl (Zofran) 4 mg IV Q8H PRN PRN PRN Reason: NAUSEA/VOMITING Last Admin: 08/17/18 04:53 Dose: 4 mg Sodium Chloride () 5 - 30 ml IV UD PRN PRN Reason: SALINE FLUSH Last Admin: 08/17/18 04:53 Dose: 20 ml Zolpidem Tartrate (Ambien (Generic)) 5 mg PO QHS PRN PRN Reason: INSOMNIA Medical Necessity - Tobacco Use Smoking Status: Never smoker Assessment/Plan All Active Problems (Last Updated 08/16/18 @ 17:41 by Kristian Gómez MD) Near syncope (Acute) Sepsis (Acute) Acute pyelonephritis (Acute) This is a 72 years old female patient presented to the emergency room because of dysuria, suprapubic abdominal pain and chills in context of recent history of cystoscopy, found to have acute pyelonephritis and sepsis. #1 SIRS (fever, tachycardia and leukocytosis but normal lactic acid) with sepsis due to acute right-sided pyelonephritis after cystoscopy consistent with complicated UTI: Urine analysis revealed cloudy urine, positive for nitrite and leukocyte esterase, there was more than 100 WBC and 2+ bacteria consistent with pyuria. CT scan abdomen and pelvis without contrast reviewed, revealed right hydronephrosis with perirenal and periureteral stranding. Patient had cystoscopy done 5 days ago. Preliminary urine culture shows presumptive E. coli more than 100,000 colonies per mL. Blood cultures x2 are pending. Lactic acid is normal. She is tachycardic, febrile, blood pressure stable. Patient is on IV fluid normal saline. On IV cefepime. She had mild reaction to penicillin at early age but she grew out of it but never had airway swelling or anaphylactic reaction. Continue monitoring electrolytes, CBC and kidney function. Urology consult reviewed and appreciated. Needs to follow-up outpatient repeat cystoscopy for bladder polyp biopsy. #2 right hydronephrosis with right perinephric and periureteric stranding consistent with pyelonephritis: With possible passed kidney stone. She had recent cystoscopy done for bladder mass. Her kidney function is normal. #3 near syncope: Probably vasovagal episode. Patient mentioned that she was not completely out of and she was aware of surroundings. She reported dizziness before the episode. She denied chest pain or palpitations. EKG revealed sinus tachycardia, no cardiac arrhythmias or acute ischemic changes. Troponin is negative. Plan to treat underlying infection and sepsis. #4 status post recent cystoscopy: This was done for bladder mass according to the patient, no documents available. #5 hypertension: Blood pressure stable, continue metoprolol, clonidine, valsartan and HCTZ. #6 hyperlipidemia: Continue statins. #7 depression/anxiety: Continue Xanax and buspirone. #8 DVT prophylaxis: subcu Lovenox. Code Visit Inpatient E&M: 32843 [facility] Hosp L3
[2018-08-17 07:25] LABS: Differential Indicated SCAN CRITERIA MET; POSITIVE COUNT NO; POSITIVE DIFFERENTIAL YES; POSITIVE MORPHOLOGY NO
--- NOTE | 2018-08-17 07:40 | PCM.PN.BLA ---
Progress Note clinically better today has right pyelonephritis. has appt for biopsy for cauterization of polyp coming up in two weeks, keep appt. urine culture pending.
[2018-08-17 07:46] LABS: Anion Gap 9 (5-15); BUN 19 mg/dL (7-18); BUN/Creat Ratio 31.7 RATIO (10-20); Calcium,Total 8.1 mg/dL (8.5-10.1); Chloride 112 mmol/L (98-107); EST Glomerular Filtration Rate 105 mL/min (>60); Est Glom Filt Rate - Afr Amer 126 mL/min (>60); Estimated Creatinine Clearance 40.81 ml/min; Glucose 146 mg/dL (74-106); Potassium 3.5 mmol/L (3.5-5.1); Sodium Level 145 mmol/L (136-145)
--- NOTE | 2018-08-17 08:01 | NURSING ---
Pt IV infiltrated this AM. Likely that Cefepime was infiltrated as well. Right arm elevated on pillow. Warm compress applied. Avi Moore, [employer]able [employer] Technician made aware.
[2018-08-17] MEDS: Losartan Potassium 100 MG Tablet PO (10:01)
[2018-08-17] MEDS: cloNIDine HCl 0.1 MG Tablet PO ×2 (10:01→20:38)
[2018-08-17] MEDS: Aspirin E.C. 81 MG Tablet PO (10:01)
[2018-08-17] MEDS: Enoxaparin 40 MG/0.4 ML Syringe SC (10:01)
[2018-08-17] MEDS: hydroCHLOROthiazide 12.5mg 12.5 MG PO (10:01)
[2018-08-17] MEDS: Metoprolol(XL)Succ 50 MG Tablet PO (10:04)
--- NOTE | 2018-08-17 10:35 | CASEMGMT ---
KIESHA MORELAND assessment: Face to Face with patient for initial transition planning/care coordination assessment. KIESHA MORELAND introduced self and role at [facility], pt voices understanding and consents to assessment at this time. Pt is lying in bed in no distress at this time. Pt is A/Ox4 at this time and answers all questions appropriately at this time. Care providers, pharmacy, and demographics verified at this time. PCP: [facility] Specialists: Pt states currently has no specialists. Preferred Pharmacy: [facility] Insurance: [facility] A/B, [place] Prescription Benefit: [place] Living Will/HPOA: Pt states has a LW/HPOA but they are not currently on file at [facility]. Pt states that her , Rod Simms, is HPOA. LNOK: Rod Simms, Living Arrangements: Pt states lives with in 1 story home and states no concerns at home at this time. Pt states completes ADL's without any concern at this time. Transportation: Pt states drives self and states no transportation concerns at this time. DME/HHC: Pt states has grab bars and shower chair but does not use. Pt states no need for any further DME at this time. Pt states no hx of HHC or SNF in the past. Pt states no concerns with going home at time of discharge. Pt states does not smoke or drink ETOH. Pt states no further concerns/needs at this time. CM to follow for any further discharge planning/needs. Advised pt to ask for CM if any further questions/concerns/needs arise, voices understanding. Plan: [place] KIESHA MORELAND
[2018-08-17] MEDS: ALPRAZolam 0.5 MG Tablet 1 MG PO (14:05)
[2018-08-17] MEDS: Atorvastatin Calcium 40 MG Tablet PO (20:38)
[2018-08-17] MEDS: Zolpidem Tartrate 5 MG Tablet PO (20:39)
--- NOTE | 2018-08-17 20:41 | NURSING ---
Pt tired, requesting to have meds given at this time.
[2018-08-18] VITALS (9 sets, daily range): BP systolic 125–163; BP diastolic 67–91; PULSE 76–89; RESP 18; TEMP 36.9–37.2; O2SAT 92–99
[2018-08-18] MEDS: 0.9% Normal Saline 1,000 ML 100 ML IV (02:22)
[2018-08-18] MEDS: Acetaminophen 325 MG Tablet 650 MG PO (05:11)
[2018-08-18] MEDS: busPIRone 15 MG TABLET 10 MG PO ×2 (05:11→15:09)
[2018-08-18] MEDS: Ondansetron 4 MG/2 ML Vial IV (05:43)
[2018-08-18] MEDS: 0.9% NaCl Peripheral Flush Adult/Peds IV (05:43)
[2018-08-18 06:24] LABS: Anion Gap 11 (5-15); BUN 13 mg/dL (7-18); BUN/Creat Ratio 26.1 RATIO (10-20); Calcium,Total 7.9 mg/dL (8.5-10.1); Chloride 113 mmol/L (98-107); EST Glomerular Filtration Rate 130 mL/min (>60); Est Glom Filt Rate - Afr Amer 157 mL/min (>60); Estimated Creatinine Clearance 40.81 ml/min; Glucose 120 mg/dL (74-106); Potassium 3.7 mmol/L (3.5-5.1); Sodium Level 145 mmol/L (136-145)
[2018-08-18 06:25] LABS: Absolute Lymphocyte Count 1.24 X10^3/ul (0.83-4.51); Absolute Neutrophil Count 13.3 X10^3/uL (2.0-7.7); Basophil# 0.03 X10^3/uL; Basophil% 0.2 % (0-1); Eosinophil# 0.03 X10^3/uL; Eosinophils% 0.2 % (0-5); Hematocrit 33.9 % (37-47); Hemoglobin 11.1 g/dl (12.0-15.0); Lymphocyte # 1.24 X10^3/ul (4.0); Lymphocyte % 7.6 % (19-41); Mean Corp Hgb Conc 32.7 g/gl (32-36); Mean Corpuscular Volume 91.6 fL (81-99); Mean Platelet Vol. 11.3 fl (6.2-12.0); Monocyte# 1.77 X10^3/uL; Monocyte% 10.8 % (0-10); Neutrophil # 13.28 X10^3/uL (2.7-7.7); Neutrophil % 80.8 % (47-70); Platelet Count 197 K/mm3 (150-450); RBC Distribution Width CV 13.5 % (11.6-14.6); White Blood Count 16.4 K/mm3 (4.4-11.0)
[2018-08-18 06:27] LABS: Differential Indicated SCAN CRITERIA MET; POSITIVE COUNT NO; POSITIVE DIFFERENTIAL YES; POSITIVE MORPHOLOGY NO
[2018-08-18] MEDS: Aspirin E.C. 81 MG Tablet PO (08:16)
[2018-08-18] MEDS: cloNIDine HCl 0.1 MG Tablet PO (08:17)
[2018-08-18] MEDS: Losartan Potassium 100 MG Tablet PO (08:17)
[2018-08-18] MEDS: hydroCHLOROthiazide 12.5mg 12.5 MG PO (08:17)
[2018-08-18] MEDS: Enoxaparin 40 MG/0.4 ML Syringe SC (08:17)
[2018-08-18] MEDS: Metoprolol(XL)Succ 50 MG Tablet PO (08:24)
--- NOTE | 2018-08-18 09:32 | DCINST_ITS ---
- Discharge Diagnoses Current Active Problems: Current Active and Chronic Problems (Last Updated 08/16/18 @ 17:41 by Kristian Gómez MD) Near syncope (Acute) Sepsis (Acute) Acute pyelonephritis (Acute) You will use the following diet at home:: Cardiac - 2 gm Na diet Your food should be the consistency of: Regular Discharge Activity: May not drive while taking narcotic pain medications. Call your doctor if you observe: Fever of 101 or Higher, Numbness or Tingling, Inability to have a bowel movement, Shortness of breath, Dizziness, Fainting spells, Increased palpitations (irregular heartbeat) Allergies/Adverse Reactions: Allergies codeine Allergy (Verified 08/16/18 16:29) Rash Penicillins [PCN] Allergy (Verified 08/16/18 14:35) Rash Medications to take at Discharge Aspirin [Aspir-Low] 81 mg PO DAILY 08/08/17 Clonidine HCl 0.1 mg PO BID 08/08/17 Ergocalciferol [Vitamin D] 50,000 units PO VASQUEZ 08/08/17 Tizanidine HCl [Zanaflex] 4 mg PO BID PRN 08/08/17 Zolpidem Tartrate [Ambien] 10 mg PO QHS PRN 08/08/17 metoprolol succinate ER 50 mg tablet,extended release 24 hr 50 mg PO DAILY 09/08/17 valsartan 320 mg-hydrochlorothiazide 12.5 mg tablet 1 tab PO DAILY 09/08/17 ALPRAZolam [Xanax] 1 mg PO BID PRN PRN 08/16/18 Atorvastatin Calcium [Lipitor] 40 mg PO QHS 08/16/18 Buspirone HCl 10 mg PO TID 08/16/18 Ciprofloxacin [Cipro] 500 mg PO BID #20 tablet 08/18/18 Lactobacillus Acidophilus [Acidophilus] 1 each PO TID #30 capsule 08/18/18 The following prescriptions were given: Ciprofloxacin [Cipro] 500 mg PO BID #20 tablet Lactobacillus Acidophilus [Acidophilus] 1 each PO TID #30 capsule Primary Care Physician: Jaya Jung Chi, MD [Primary Care Provider] - Please follow up with your Primary Care Physician in: in 1-2 weeks Test Results: Test results from this visit will be discussed in further detail at your follow- up appointment, if applicable. Please Follow Up With: Allen Alvarado MD When: in 2 weeks for follow up Cystoscopy and polyp biopsy
--- NOTE | 2018-08-18 09:32 | PCM.DC.SUM ---
Discharge Date and Diagnosis Date of Admission: 08/16/18 Date of Discharge: 08/18/18 - Primary Discharge Diagnosis Active and Suspected Problems (Last Updated 08/16/18 @ 17:41 by Kristian Gómez MD) Near syncope (Acute) Sepsis (Acute) Acute pyelonephritis (Acute) SIRS (fever, tachycardia and leukocytosis but normal lactic acid) with sepsis due to acute right-sided pyelonephritis after cystoscopy consistent with complicated Ecoli UTI/pyelonephritis - Secondary Discharge Diagnosis Chronic Problems (Last Updated 08/16/18 @ 17:41 by Kristian Gómez MD) Postoperative atrial fibrillation (Chronic) HLD (hyperlipidemia) (Chronic) HTN (hypertension) (Chronic) Hospital Course and Treatment Operations: cholecystecomy - Partial cholecystectomy, biliary drain placement and removal, sphincterectomy, ERCP - With stent placement Summary of Care Provided: [] This is a 72 years old female patient presented to the emergency room because of dysuria, suprapubic abdominal pain and chills in context of recent history of cystoscopy, found to have acute pyelonephritis and sepsis. #1 SIRS (fever, tachycardia and leukocytosis but normal lactic acid) with sepsis due to acute right-sided pyelonephritis after cystoscopy consistent with complicated Ecoli UTI: Urine analysis revealed cloudy urine, positive for nitrite and leukocyte esterase, there was more than 100 WBC and 2+ bacteria consistent with pyuria. Tachycardia and fever resolved. Leukocytosis trending down. CT scan abdomen and pelvis without contrast reviewed, revealed right hydronephrosis with perirenal and periureteral stranding. Patient had cystoscopy done 5 days ago. urine culture reported E. coli more than 100,000 colonies, pansensitive to ampicillin and fluoroquinolones. Blood cultures x2 are negative for more than 48 hours. Lactic acid is normal. Patient is on IV fluid normal saline. On IV cefepime. She had mild reaction to penicillin at early age but she grew out of it but never had airway swelling or anaphylactic reaction. patient's lab electrolytes, CBC and kidney function were monitored. Urology consult reviewed and appreciated. Patient is discharged on Cipro 500 mg twice daily for 10 more days to complete a total of 12 days of antibiotic patient advised to follow with Dr. Alvarado in 2 weeks. For repeat cystoscopy and bladder polyp biopsy and cauterization. #2 right hydronephrosis with right perinephric and periureteric stranding consistent with pyelonephritis: With possible passed kidney stone. She had recent cystoscopy done for bladder mass. Rest as above #3 near syncope: Probably vasovagal episode. Patient mentioned that she was not completely out of and she was aware of surroundings. She reported dizziness before the episode. She denied chest pain or palpitations. EKG revealed sinus tachycardia, no cardiac arrhythmias or acute ischemic changes. Troponin is negative. Plan to treat underlying infection and sepsis. #4 status post recent cystoscopy: This was done for bladder mass according to the patient, no documents available. #5 hypertension: Blood pressure stable, continue metoprolol, clonidine, valsartan and HCTZ. #6 hyperlipidemia: Continue statins. #7 depression/anxiety: Continue Xanax and buspirone. #8 DVT prophylaxis: subcu Lovenox. Patient is discharged home on antibiotic. Discharge medication reconciliation done. Discharge meds and follow-up instructions were discussed with the patient and her daughter Total time spent, exact 35 minutes on discharge meds reconciliation, examination, review of imaging and blood test and discussion with the patient on follow-up instructions. Subjective: No fever or chills. No renal angle/flank pain or nausea or vomiting or headache. Patient walking comfortably around nursing station. - Physical Exam General: Alert, Oriented x3, Cooperative HEENT: Atraumatic, PERRLA, EOMI, Normocephalic Neck: Supple, No JVD, Negative Carotid Bruits Lungs: Clear to auscultation, Normal air movement, No rhonchi, No wheeze, No rales Cardiovascular: Regular rate, Regular Rhythm, Normal S1, Normal S2, No murmurs Abdomen: Bowel Sounds Present, Soft, Non Tender, Non-Distended, - - No hematuria Extremities: No edema, Capillary Refill Less than 3 Seconds Skin: No rashes, No breakdown Musculoskeletal: No Tenderness to Palpation of Joints or Extremities Neurological: Cranial nerves II-XII grossly intact Psych/Mental Status: Normal Affect, Appropriate Vital Signs Temp Pulse Resp BP Pulse Ox 98.7 F 76 18 159/91 H 97 08/18/18 08:20 08/18/18 08:24 08/18/18 08:20 08/18/18 08:20 08/18/18 08:20 Oxygen Delivery Method Room Air Weight: 190 lb 0.615 oz Body Mass Index (BMI) 33.6 Intake and Output for Last 24 Hours 08/16/18 08/17/18 08/18/18 23:59 23:59 23:59 Intake Total 520 / 520 2684 / 2684 1132 / 1132 Balance 520 / 520 2684 / 2684 1132 / 1132 Microbiology Past 72 Hours 08/16/18 15:53 Urine Culture - Final Urine, Clean Catch Presumptive E. coli 08/16/18 17:55 Blood Culture - Preliminary Blood Culture (Wb) - Right Hand Laboratory Tests Past 24 Hrs 08/18/18 08/18/18 05:05 05:05 WBC 16.4 H RBC 3.70 L Hgb 11.1 L Hct 33.9 L MCV 91.6 MCH 30.0 MCHC 32.7 RDW 13.5 RDW Differential 44.0 H Plt Count 197 MPV 11.3 Immature Gran % (Auto) 0.400 Neut % (Auto) 80.8 H Lymph % (Auto) 7.6 L [place] % (Auto) 10.8 H Eos % (Auto) 0.2 Baso % (Auto) 0.2 Absolute Neuts (auto) 13.3 H Absolute Lymphs (auto) 1.24 Total Counted Not Reportable Sodium 145 Potassium 3.7 Chloride 113 H Carbon Dioxide 21.0 Anion Gap 11 BUN 13 Creatinine 0.50 L Estim Creat Clear Calc 40.81 Est GFR (MDRD) Af Amer 157 Est GFR (MDRD) Non-Af 130 BUN/Creatinine Ratio 26.1 H Glucose 120 H Calcium 7.9 L Discharge Activity: May not drive while taking narcotic pain medications. Call your doctor if you observe: Fever of 101 or Higher, Numbness or Tingling, Inability to have a bowel movement, Shortness of breath, Dizziness, Fainting spells, Increased palpitations (irregular heartbeat) Home Medications: Medications to take at Discharge Aspirin [Aspir-Low] 81 mg PO DAILY 08/08/17 Clonidine HCl 0.1 mg PO BID 08/08/17 Ergocalciferol [Vitamin D] 50,000 units PO VASQUEZ 08/08/17 Tizanidine HCl [Zanaflex] 4 mg PO BID PRN 08/08/17 Zolpidem Tartrate [Ambien] 10 mg PO QHS PRN 08/08/17 metoprolol succinate ER 50 mg tablet,extended release 24 hr 50 mg PO DAILY 09/08/17 valsartan 320 mg-hydrochlorothiazide 12.5 mg tablet 1 tab PO DAILY 09/08/17 ALPRAZolam [Xanax] 1 mg PO BID PRN PRN 08/16/18 Atorvastatin Calcium [Lipitor] 40 mg PO QHS 08/16/18 Buspirone HCl 10 mg PO TID 08/16/18 Ciprofloxacin [Cipro] 500 mg PO BID #20 tablet 08/18/18 Lactobacillus Acidophilus [Acidophilus] 1 each PO TID #30 capsule 08/18/18 Following Prescrptions Were Given to Patient: Ciprofloxacin [Cipro] 500 mg PO BID #20 tablet Lactobacillus Acidophilus [Acidophilus] 1 each PO TID #30 capsule Primary Care Physician: Jaya Jung Chi, MD [Primary Care Provider] - Please follow up with your Primary Care Physician in: in 1-2 weeks Please Follow Up With: Allen Alvarado MD When: in 2 weeks for follow up Cystoscopy and polyp biopsy Medical Necessity - Tobacco Use Smoking Status: Never smoker Meaningful Use Info Meaningful Use Diagnoses (Choose all that apply): None applicable Code Visit Inpatient E&M: 47314 Disch Hosp
[2018-08-18 15:07] LABS: Pathologist Review Reviewed
--- NOTE | 2018-08-20 09:43 | CASEMGMT ---
RN CM Discharge Follow-up Phone Call: YADIRA: Erica Strata: 3 Call Date: 08/20/18 Discharge Date: 08/18/18 Time of Call: 0940 Duration: 0 ? Admitting Diagnosis: Sepsis secondary to pyelonephritis s/p cystoscopy This RN CM attempted to contact pt via telephone in regard to discharge follow-up. Voicemail received and message left.
== END 2018-08-18 15:16 | disposition home or self-care (01) | DRG 862 ==
LOC: ED 15:10 → PCU 17:46
PROVIDERS: Emergency Medicine; Admitting Provider Hospitalist; Emergency Provider Emergency Medicine; Family Provider Family Medicine Geriatric Medicine; PCP Family Medicine Geriatric Medicine; Visit Provider Internal Medicine
DX: T81.40XA Infection following a procedure, unspecified, initial encounter (principal); A41.51 Sepsis due to Escherichia coli [E. coli]; N10 Acute pyelonephritis; N13.6 Pyonephrosis; T81.44XA Sepsis following a procedure, initial encounter; Y83.8 Other surgical procedures as the cause of abnormal reaction of the patient, or of later complication, without mention of misadventure at the time of the procedure; E78.5 Hyperlipidemia, unspecified; I10 Essential (primary) hypertension; R55 Syncope and collapse; F32.9 Major depressive disorder, single episode, unspecified; F41.9 Anxiety disorder, unspecified
CPT/HCPCS: 36415; 74176; 80048; 81001; 83605; 84484; 85025; 87040; 87086; 87088; 87186; 93005; 97802; 99284; J7030; J7050; A4216; J2405

== ENCOUNTER → 2018-08-30 16:23 | Outpatient (CLI) | payer MEDICARE, BC, SELFPAY ==
[2018-08-16 18:25] VITALS: BMI 33.6
--- NOTE | 2018-08-30 11:30 | BLA_PTH ---
PATIENT: ITZ VEGAS LOC: [facility] U#:[id number] AGE/SX: 80/F ROOM: RE08/30/[address]: Dr. Allen Alvarado MD : 1945 BED: DIS: SPEC #: [id number] RECD: 08/30/18 16:17 STATUS: RODO SERENE #: [id number] ANDREY: 08/30/18 11:[address]: Allen Alvarado DEPT: SURGICAL PATHOLOGY RECD BY: Orestes Narayanan ENTERED: 08/31/18 08:40 SP TYPE: BLADDER BX OTHR DR: Dr. Jaya Jung MD Tissues: Urinary bladder, NOS Procedures: Surgery Specimen Level IV HEADER OPERATION: Bladder biopsy PRE-OP DIAGNOSIS: History bladder CA TISSUE SUBMITTED: Bladder biopsy MICROSCOPIC DIAGNOSIS Bladder, biopsy: A fragment of urothelial mucosa with mild chronic inflammation. Negative for malignancy. SJ:ruslan 09/01/18 COMMENT Please make reference to previous specimen ([id number]) urine for cytology with diagnosis of negative for malignant cells and ([id number]) bladder tissue, TUR with diagnosis of papillary urothelial carcinoma. Correlation with clinical, cystoscopic findings and appropriate follow up are necessary. Case has been reviewed in consultation with Dr. Johnson who concurs with the above diagnosis. IDC:AM MICROSCOPIC DESCRIPTION Slides are reviewed. GROSS DESCRIPTION Received in fixative is one container labeled with the patient's name and designated bladder biopsy. The specimen consists of one irregular fragment of light wrae soft tissue that measures 0.1 cm in greatest dimension. The specimen is totally submitted in one cassette. / SJ:ruslan 08/31/18 TC:3 CPT: 66059
== END ==
PROVIDERS: Family Provider Family Medicine Geriatric Medicine; PCP Family Medicine Geriatric Medicine; Referring Provider Urology; Visit Provider Urology
DX: Z85.51 Personal history of malignant neoplasm of bladder (principal)
CPT/HCPCS: 88305

== ENCOUNTER → 2018-10-29 11:25 | Outpatient (CLI) | payer MEDICARE, BC, SELFPAY ==
[2018-08-16 18:25] VITALS: BMI 33.6
[2018-10-25 14:14] LABS: BUN 16 mg/dL (7-18); Creatinine, Serum 0.73 mg/dL (0.55-1.02); EST Glomerular Filtration Rate 83 mL/min (>60); Est Glom Filt Rate - Afr Amer 101 mL/min (>60)
--- NOTE | 2018-10-29 14:29 | CT_ITS ---
STUDY: CT ABDOMEN AND PELVIS WITH AND WITHOUT CONTRAST REASON FOR EXAM: Female, 73 years old. Bladder cancer follow-up. History of cholecystectomy. RADIATION DOSAGE (If Supplied By Facility): CTDIvol = ( 27.78 ) mGy, DLP = ( 3018.22 ) mGycm TECHNIQUE: Transaxial images were obtained from the dome of the diaphragm to the symphysis pubis without oral contrast. 100mL ml of Isovue 300 contrast was administered. Sagittal and coronal images were reconstructed. Individualized dose optimization techniques were used for this CT. COMPARISON: CT abdomen and pelvis August 16, 2018. FINDINGS: There is minor atelectasis in the inferomedial lung bases The visualized portions of the heart are within normal limits. There is hepatomegaly, the right lobe measuring nearly 20 cm in height and the left lobe extending into the anterior left upper quadrant.. The patent portal vein diameter is 10 mm. Normal gallbladder and extrahepatic biliary system. The diameter of the common bile duct is 5.5 mm. Normal spleen. Normal pancreas. Normal bilateral adrenal glands. Normal right kidney. Normal left kidney. No hydronephrosis. Normal visualized stomach. Normal small intestine. Normal colon. There is non-visualization of the appendix. There is atherosclerotic calcification of the abdominal aorta and proximal iliac arteries, without a demonstrated aneurysm. Normal inferior vena cava. Normal retroperitoneum. Normal urinary bladder. There is absence of the uterus consistent with a prior hysterectomy. There are surgical clips in the expected area of the bilateral adnexa. There are 2 midline defects with small, fat-containing ventral hernias near the level of the umbilicus. The larger 11 mm defect is more inferior, with a hernia measures 2.35 x 1.7 x 2.35 cm. There are multilevel degenerative changes of the visualized spine. CT/CT Abd/Pelvis W/WO Contrast IMPRESSION: 1. Prior hysterectomy and possible nephrectomies. No recurrent pelvic mass or fluid collection. No sign of abdominal/pelvic metastatic disease. 2. The right upper urinary tract distention seen on prior study has resolved. 3. Hepatomegaly. 4. The bowel is unremarkable without sign of obstruction. The appendix not visualized. 5. Aortoiliac atherosclerotic calcific plaquing. No demonstrated aortic aneurysm. 6. Two stable, small, fat-containing midline anterior abdominal wall hernias again noted. Electronically Signed: Carl Devlin MD at 16:56 EST , Service support ,
== END ==
PROVIDERS: Family Provider Family Medicine Geriatric Medicine; PCP Family Medicine Geriatric Medicine; Referring Provider Urology; Visit Provider Urology
DX: N13.30 Unspecified hydronephrosis (principal); Z85.51 Personal history of malignant neoplasm of bladder
CPT/HCPCS: 36415; 74178; 82565; 84520; Q9967; A4216

== ENCOUNTER → 2018-12-27 13:40 | Outpatient (CLI) | payer MEDICARE, BC, SELFPAY ==
[2018-12-23 08:49] VITALS: BMI 33.6
[2018-12-27 14:39] LABS: Absolute Lymphocyte Count 2.34 X10^3/ul (0.83-4.51); Absolute Neutrophil Count 6.7 X10^3/uL (2.0-7.7); Basophil# 0.05 X10^3/uL; Basophil% 0.5 % (0-1); Eosinophil# 0.19 X10^3/uL; Eosinophils% 1.9 % (0-5); Hematocrit 37.6 % (37-47); Hemoglobin 12.4 g/dl (12.0-15.0); Lymphocyte # 2.34 X10^3/ul (4.0); Lymphocyte % 23.1 % (19-41); Mean Corpuscular Hgb 29.4 pg (27.0-32.0); Mean Corpuscular Volume 89.1 fL (81-99); Mean Platelet Vol. 11.4 fl (6.2-12.0); Monocyte# 0.83 X10^3/uL; Monocyte% 8.2 % (0-10); Neutrophil # 6.71 X10^3/uL (2.7-7.7); Neutrophil % 66.2 % (47-70); Platelet Count 248 K/mm3 (150-450); RBC Distribution Width CV 13.6 % (11.6-14.6); RBC Distribution Width SD 44.1 fl (35.1-43.9); Red Blood Count 4.22 M/mm3 (4.2-5.4); White Blood Count 10.1 K/mm3 (4.4-11.0)
[2018-12-27 14:43] LABS: POSITIVE COUNT NO; POSITIVE DIFFERENTIAL NO; POSITIVE MORPHOLOGY NO
[2018-12-27 14:48] LABS: ALB/GLOB Ratio 1.1 RATIO (0.9-2.4); AST(SGOT) 21 U/L (15-37); Alanine Aminotransfer ALT/SGPT 29 U/L (13-56); Albumin, Serum 3.8 g/dL (3.2-5.0); Alkaline Phosphatase 90 U/L (45-117); Anion Gap 9 (5-15); BUN 12 mg/dL (7-18); BUN/Creat Ratio 16.6 RATIO (10-20); Calcium,Total 9.1 mg/dL (8.5-10.1); Chloride 107 mmol/L (98-107); Creatinine, Serum 0.72 mg/dL (0.55-1.02); EST Glomerular Filtration Rate 84 mL/min (>60); Est Glom Filt Rate - Afr Amer 102 mL/min (>60); Globulin 3.4 g/dL (2.2-4.2); Glucose 103 mg/dL (74-106); Potassium 4.6 mmol/L (3.5-5.1); Protein, Total 7.2 g/dL (6.4-8.2); Sodium Level 142 mmol/L (136-145); Thyroid Stim Hormone (TSH) 1.48 uIU/mL (0.358-3.74)
== END ==
PROVIDERS: Family Provider Family Medicine Geriatric Medicine; PCP Family Medicine Geriatric Medicine; Visit Provider Family Medicine Geriatric Medicine
DX: E11.9 Type 2 diabetes mellitus without complications (principal); E55.9 Vitamin D deficiency, unspecified; I10 Essential (primary) hypertension
CPT/HCPCS: 36415; 80053; 82306; 84443; 85025

== ENCOUNTER → 2018-12-29 11:30 | Outpatient (CLI) | payer MEDICARE, BC, SELFPAY ==
--- NOTE | 2018-12-29 09:40 | LES_PTH ---
PATIENT: ITZ VEGAS LOC: [facility] #:[id number] AGE/SX: 79/F ROOM: RE12/29/[address]: Dr. Diogenes Gray MD : 1945 BED: DIS: SPEC #: [id number] RECD: 12/29/18 11:23 STATUS: RODO SERENE #: [id number] ANDREY: 12/29/18 09:[address]: Diogenes Gray DEPT: SURGICAL PATHOLOGY RECD BY: Orestes Narayanan ENTERED: 12/29/18 13:09 SP TYPE: Lesion OTHR DR: Dr. 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 Actinic keratosis and solar elastosis. ENE:ruslan 12/31/18 COMMENT Please make reference to previous specimen ([id number]) left forearm skin lesion with diagnosis of squamous cell carcinoma in situ. Case has been reviewed in consultation with Dr. Mir who concurs with the above diagnosis. IDC:CE MICROSCOPIC DESCRIPTION Slides are reviewed. GROSS DESCRIPTION Received in fixative is one container labeled with the patient's name and designated left cheek. The specimen consists of a ware-white skin ellipse measuring 2.2 x 1 cm and up to 0.4 cm in thickness. A suture is noted at one tip of ellipse identified as lateral and that tip is inked yellow. The medial tip is inked green. The specimen is inked as follows: peripheral margin, superior margin is inked black and inferior margin is inked blue. The specimen is serially sectioned and submitted entirely in two cassettes. Cassette 1 contains the lateral and medial tips. / SJ:ruslan 12/29/18 TC:0 CPT: 28283
[2018-12-29 10:26] VITALS: BMI 33.6
== END ==
PROVIDERS: Family Provider Family Medicine Geriatric Medicine; PCP Family Medicine Geriatric Medicine; Referring Provider Surgery; Visit Provider Surgery
DX: D48.7 Neoplasm of uncertain behavior of other specified sites (principal)
CPT/HCPCS: 88305

== ENCOUNTER → 2019-06-14 16:26 | Outpatient (CLI) | payer MEDICARE, BC, SELFPAY ==
[2018-12-29 10:26] VITALS: BMI 33.6
[2019-06-14 17:19] LABS: Absolute Lymphocyte Count 2.67 X10^3/uL (0.83-4.51); Absolute Neutrophil Count 10.9 X10^3/uL (2.0-7.7); Basophil% 0.7 % (0-1); Hematocrit 42.7 % (37-47); Lymphocyte # 2.67 X10^3/ul (4.0); Lymphocyte % 17.6 % (19-41); Mean Corp Hgb Conc 32.8 g/dL (32-36); Mean Corpuscular Hgb 29.7 pg (27.0-32.0); Mean Corpuscular Volume 90.5 fL (81-99); Mean Platelet Vol. 11.7 fl (6.2-12.0); Monocyte# 1.13 X10^3/uL; Monocyte% 7.5 % (0-10); NRBC Flagged by Analyzer 0 % (0-5); Neutrophil # 10.89 X10^3/uL (2.7-7.7); Neutrophil % 71.7 % (47-70); Platelet Count 295 K/mm3 (150-450); RBC Distribution Width CV 13.7 % (11.6-14.6); RBC Distribution Width SD 45.1 fl (35.1-43.9); Red Blood Count 4.72 M/mm3 (4.2-5.4); White Blood Count 15.2 K/mm3 (4.4-11.0)
[2019-06-14 17:43] LABS: ALB/GLOB Ratio 0.9 RATIO (0.9-2.4); AST(SGOT) 27 U/L (15-37); Alanine Aminotransfer ALT/SGPT 36 U/L (13-56); Albumin, Serum 3.7 g/dL (3.2-5.0); Alkaline Phosphatase 119 U/L (45-117); Anion Gap 9 (5-15); BUN 13 mg/dL (7-18); BUN/Creat Ratio 16.2 RATIO (10-20); Calcium,Total 9.3 mg/dL (8.5-10.1); Chloride 106 mmol/L (98-107); EST Glomerular Filtration Rate 74 mL/min (>60); Est Glom Filt Rate - Afr Amer 90 mL/min (>60); Glucose 133 mg/dL (74-106); Potassium 3.7 mmol/L (3.5-5.1); Protein, Total 7.7 g/dL (6.4-8.2); Sodium Level 142 mmol/L (136-145); Thyroid Stim Hormone (TSH) 1.91 uIU/mL (0.358-3.74)
== END ==
PROVIDERS: Family Provider Family Medicine Geriatric Medicine; PCP Family Medicine Geriatric Medicine; Visit Provider Family Medicine Geriatric Medicine
DX: F05 Delirium due to known physiological condition (principal); R53.83 Other fatigue
CPT/HCPCS: 36415; 80053; 84443; 85025

== ENCOUNTER → 2019-06-23 14:40 | Outpatient (CLI) | payer MEDICARE, BC, SELFPAY ==
[2018-12-29 10:26] VITALS: BMI 33.6
[2019-06-23 15:55] LABS: Absolute Lymphocyte Count 2.86 X10^3/uL (0.83-4.51); Absolute Neutrophil Count 7.2 X10^3/uL (2.0-7.7); Basophil# 0.07 X10^3/uL; Basophil% 0.6 % (0-1); Eosinophil# 0.23 X10^3/uL; Hemoglobin 13.4 g/dL (12.0-15.0); Lymphocyte # 2.86 X10^3/ul (4.0); Lymphocyte % 25.4 % (19-41); Mean Corp Hgb Conc 32.7 g/dL (32-36); Mean Corpuscular Hgb 29.8 pg (27.0-32.0); Mean Corpuscular Volume 91.3 fL (81-99); Monocyte# 0.83 X10^3/uL; Monocyte% 7.4 % (0-10); NRBC Flagged by Analyzer 0 % (0-5); Neutrophil # 7.19 X10^3/uL (2.7-7.7); Neutrophil % 64.1 % (47-70); Platelet Count 241 K/mm3 (150-450); RBC Distribution Width CV 13.3 % (11.6-14.6); RBC Distribution Width SD 44.7 fl (35.1-43.9); Red Blood Count 4.49 M/mm3 (4.2-5.4); White Blood Count 11.2 K/mm3 (4.4-11.0)
[2019-06-23 16:29] LABS: ALB/GLOB Ratio 1.2 RATIO (0.9-2.4); AST(SGOT) 22 U/L (15-37); Alanine Aminotransfer ALT/SGPT 26 U/L (13-56); Alkaline Phosphatase 108 U/L (45-117); Anion Gap 10 (5-15); BUN 13 mg/dL (7-18); BUN/Creat Ratio 21.3 RATIO (10-20); Calcium,Total 9.3 mg/dL (8.5-10.1); Chloride 105 mmol/L (98-107); Creatinine, Serum 0.61 mg/dL (0.55-1.02); EST Glomerular Filtration Rate 102 mL/min (>60); Est Glom Filt Rate - Afr Amer 124 mL/min (>60); Globulin 3.4 g/dL (2.2-4.2); Glucose 100 mg/dL (74-106); Potassium 4.6 mmol/L (3.5-5.1); Protein, Total 7.4 g/dL (6.4-8.2); Sodium Level 141 mmol/L (136-145); Thyroid Stim Hormone (TSH) 1.55 uIU/mL (0.358-3.74)
[2019-06-23 17:00] LABS: Vitamin D,25 Hydroxy 77.9 ng/mL (29.95-100.01)
== END ==
PROVIDERS: Family Provider Family Medicine Geriatric Medicine; PCP Family Medicine Geriatric Medicine; Visit Provider Family Medicine Geriatric Medicine
DX: E55.9 Vitamin D deficiency, unspecified (principal); I10 Essential (primary) hypertension
CPT/HCPCS: 36415; 80053; 82306; 84443; 85025

== ENCOUNTER 2019-08-30 12:26 | Day surgery (SDC) | payer MEDICARE, BC, SELFPAY ==
[2018-12-29 10:26] VITALS: BMI 33.6
--- NOTE | 2019-08-30 12:34 | EKG12_ITS ---
Test Reason : PRE OP Blood Pressure : / mmHG Vent. Rate : 073 BPM Atrial Rate : 073 BPM P-R Int : 184 ms QRS Dur : 086 ms QT Int : 406 ms P-R-T Axes : 041 -05 061 degrees QTc Int : 447 ms Normal sinus rhythm Normal ECG When compared with ECG of 16-AUG-2018 14:58, Borderline criteria for Inferior infarct are no longer Present Nonspecific T wave abnormality now evident in Inferior leads Confirmed by CEDRICK FONG ([id number]), school photograph editor YOU TALLEY ([id number]) on 09/04/2019 10:43:17 AM Referred By: Bhavya Calloway Confirmed By:CEDRICK FONG
[2019-08-30 13:07] VITALS: BP 172/81; PULSE 73; RESP 16; TEMP 37; O2SAT 95; BMI 37.0
[2019-08-30] MEDS: Ciprofloxacin 400 MG/200 ML BAG 200 MG IV (13:22)
[2019-08-30] MEDS: Lactated Ringers 1,000 ML 100 ML IV (13:22)
--- NOTE | 2019-08-30 13:40 | PCM.OPRPT ---
Problem List (1) History of bladder cancer Status: Acute (2) Erythematous bladder mucosa Status: Acute Report of Operation Date of Procedure: 08/30/19 Pre-Operative Diagnosis: History of transitional cell carcinoma of the bladder, new erythematous lesion of the bladder mucosa Post-Operative Diagnosis: Same Surgery/Procedure Performed:: Cystoscopy, bladder biopsy with fulguration Type of Anesthesia:: General Estimated Blood Loss (mL): 5cc Description of Procedure: The patient is a 74-year-old female with a history of transitional cell carcinoma of the bladder who presented to the office for surveillance cystoscopy. I identified 2 areas of concern for small 3 to 4 mm papillary lesions on the right lateral bladder wall beyond the ureteral orifice. Informed consent was obtained and the patient agreed to proceed with removal under anesthesia. The patient was taken to the operating room and placed on the operating room table. Anesthesia monitored the head, neck, airway, IV access and vital signs throughout the case. Once anesthesia was appropriately administered the patient was placed into dorsal lithotomy position was prepped and draped in usual sterile fashion. Using a 30 degree lens, the same lesions approximately 3 to 4 mm in size along the right lateral wall were identified. These lesions were removed each with one biopsy. A deeper biopsy was performed. The area was fulgurated for tissue treatment and hemostatic control. The patient tolerated the procedure. Of note, there was significant abdominal breathing throughout the case, and with the next anesthesia I would recommend intubation. - Complications none - Admit VTE Documentation VTE Present on Admission: Yes VTE Mechan Device Prophylaxis: SCD's VTE Pharm Prophylaxis ordered?: No Reason prophylaxis not ordered:: Treatment Not Indicated
--- NOTE | 2019-08-30 13:42 | DCINST_ITS ---
Discharge Diet: No Restrictions Discharge Activity: May not drive while taking narcotic pain medications. Call your doctor if you observe: Fever of 101 or Higher, Inability to urinate, Shortness of breath, Chest pain, Calf discomfort, Uncontrolled pain, - - passing blood clots in urine Allergies/Adverse Reactions: Allergies codeine Allergy (Verified 08/22/19 08:02) Rash Penicillins [PCN] Allergy (Verified 08/22/19 08:02) Rash Medications to take at Discharge Aspirin [Aspir-Low] 81 mg PO DAILY 08/08/17 Ergocalciferol [Vitamin D] 50,000 units PO VASQUEZ 08/08/17 Tizanidine HCl [Zanaflex] 4 mg PO BID PRN 08/08/17 Zolpidem Tartrate [Ambien] 10 mg PO QHS PRN 08/08/17 ALPRAZolam [Xanax] 1 mg PO BID PRN PRN 08/16/18 Atorvastatin Calcium [Lipitor] 40 mg PO QHS 08/16/18 Buspirone HCl 10 mg PO TID PRN 08/16/18 Losartan/Hydrochlorothiazide [Losartan-Hctz 100-12.5 mg Tab] 1 ea PO DAILY 08/22/19 Metoprolol(XL)Succ [Toprol Xl (Beta Penny)] 50 mg PO DAILY 08/22/19 Paroxetine HCl [Paxil] 40 mg PO DAILY 08/22/19 Hydrocodone Bitart/Apap 5-325 [Convoy 5MG-325MG] 1 tab PO Q4H PRN PRN 7 Days #20 tab 08/30/19 Phenazopyridine HCl [Pyridium] 200 mg PO TID PRN PRN 7 Days #30 tab 08/30/19 Smz/Tmp Ds [Bactrim Ds] 1 tab PO BID 3 Days #6 tab 08/30/19 The following prescriptions were given: Smz/Tmp Ds [Bactrim Ds] 1 tab PO BID 3 Days #6 tab Prescription Printed Hydrocodone Bitart/Apap 5-325 [Convoy 5MG-325MG] 1 tab PO Q4H PRN PRN 7 Days #20 tab PRN Reason: Pain Prescription Printed Phenazopyridine HCl [Pyridium] 200 mg PO TID PRN PRN 7 Days #30 tab PRN Reason: Bladder Spasms Prescription Printed Orders to be completed after discharge: 12 Lead EKG [[facility]] Time Frame: 08/22/19, Facility: [facility], Location: Cardiovascular Services Primary Care Physician: Jaya Jung Chi, MD [Primary Care Provider] - Test Results: Test results from this visit will be discussed in further detail at your follow- up appointment, if applicable. Please Follow Up With: Bhavya Calloway MD When: 1 week, call office for appt Proposed Discharge Date: 08/30/19
[2019-08-30] MEDS: Lubricating Jelly 60 GM Tube 30 GM TOPICAL (14:06)
--- NOTE | 2019-08-30 14:25 | BLA_PTH ---
PATIENT: ITZ VEGAS LOC: [facility] U#:[id number] AGE/SX: 74/F ROOM: RE08/30/[address]: Dr. Bhavya Calloway MD : 1945 BED: DIS: 08/30/2019 SPEC #: [id number] RECD: 08/30/19 15:03 STATUS: RODO REAndrey #: [id number] ANDREY: 08/30/19 14:[address]: Bhavya Calloway DEPT: SURGICAL PATHOLOGY RECD BY: Orestes Narayanan ENTERED: 08/31/19 13:26 SP TYPE: BLADDER BX OTHR DR: MD Dr. Jaya Doll Chi, MD Tissues: Urinary bladder, NOS Procedures: Surgery Specimen Level IV HEADER OPERATION: Cystoscopy, bladder biopsy, fulguration PRE-OP DIAGNOSIS: Neoplasm of bladder; history of malignant bladder neoplasm, urgency, UTI TISSUE SUBMITTED: Bladder biopsy MICROSCOPIC DIAGNOSIS Bladder, biopsy: Fragments of urothelial mucosa with focal papillary hyperplasia with atypia, suggestive of papillary neoplasm of uncertain malignant potential. Focal mild chronic inflammation. See comment. ENE:ruslan 09/01/19 COMMENT The specimen shows scant fragments of smooth muscle proper (detrusor muscle). Tumor shows focal endophytic pattern. Please make reference to previous specimens ([id number]) bladder tissue, TUR with diagnosis of papillary urothelial carcinoma and ([id number]) bladder, biopsy with diagnosis of a fragment of urothelial mucosa with mild chronic inflammation. Case has been reviewed in consultation with Dr. Johnson who concurs with the above diagnosis. IDC:AM MICROSCOPIC DESCRIPTION Slides are reviewed. GROSS DESCRIPTION Received in fixative is one container labeled with the patient's name and designated bladder biopsy. The specimen consists of multiple irregular fragments of light ware soft tissue that in aggregate measure 2 x 0.5 x 0.2 cm. The specimen is totally submitted in one cassette. / ENE:rulsan 08/31/19 TC:5 CPT: 84775
[2019-08-30 14:33] VITALS: BP 172/81; BP 187/94; PULSE 73; RESP 16; TEMP 37.2; O2SAT 93
[2019-08-30 14:45] VITALS: BP 169/75; BP 172/81; PULSE 71; RESP 16; O2SAT 96
[2019-08-30 15:00] VITALS: BP 158/77; BP 172/81; PULSE 71; RESP 16; O2SAT 96
[2019-08-30 15:15] VITALS: BP 172/81; BP 176/79; PULSE 71; RESP 16; TEMP 37.2; O2SAT 98
[2019-08-30 16:18] VITALS: BP 172/81; BP 190/75; PULSE 68; RESP 18; TEMP 36.2; O2SAT 93
== END 2019-08-30 16:25 | disposition home or self-care (01) ==
LOC: SDC 12:27 → AC 12:28
PROVIDERS: Family Provider Family Medicine Geriatric Medicine; PCP Family Medicine Geriatric Medicine; Referring Provider Urology; Visit Provider Urology
PROC: 0TBB8ZX Excision of Bladder, Via Natural or Artificial Opening Endoscopic, Diagnostic (ICD-10-PCS; CPT 52204; principal; 2019-08-30 14:15)
DX: D41.4 Neoplasm of uncertain behavior of bladder (principal); R39.15 Urgency of urination; I10 Essential (primary) hypertension; I27.20 Pulmonary hypertension, unspecified; F41.9 Anxiety disorder, unspecified; Z85.51 Personal history of malignant neoplasm of bladder; Z79.82 Long term (current) use of aspirin; Z79.899 Other long term (current) drug therapy
CPT/HCPCS: 00910; 52204; 88305; 93005; J7120; J0744; J2405

== ENCOUNTER → 2020-02-09 15:21 | Outpatient (CLI) | payer MEDICARE, BC, SELFPAY ==
[2019-10-24 16:31] VITALS: BMI 37.0
[2020-02-09 16:28] LABS: Absolute Lymphocyte Count 2.37 X10^3/uL (0.83-4.51); Absolute Neutrophil Count 8.2 X10^3/uL (2.0-7.7); Basophil# 0.07 X10^3/uL; Basophil% 0.6 % (0-1); Eosinophil# 0.25 X10^3/uL; Eosinophils% 2.1 % (0-5); Hematocrit 37.2 % (37-47); Hemoglobin 12.4 g/dL (12.0-15.0); Lymphocyte # 2.37 X10^3/ul (4.0); Lymphocyte % 19.9 % (19-41); Mean Corp Hgb Conc 33.3 g/dL (32-36); Mean Corpuscular Hgb 29.9 pg (27.0-32.0); Mean Corpuscular Volume 89.6 fL (81-99); Mean Platelet Vol. 11.2 fl (6.2-12.0); Monocyte# 0.91 X10^3/uL; Monocyte% 7.7 % (0-10); NRBC Flagged by Analyzer 0 % (0-5); Neutrophil # 8.23 X10^3/uL (2.7-7.7); Neutrophil % 69.2 % (47-70); Platelet Count 257 K/mm3 (150-450); RBC Distribution Width CV 13.5 % (11.6-14.6); RBC Distribution Width SD 43.7 fl (35.1-43.9); Red Blood Count 4.15 M/mm3 (4.2-5.4); White Blood Count 11.9 K/mm3 (4.4-11.0)
[2020-02-09 16:38] LABS: Vitamin D,25 Hydroxy 62.8 ng/mL
[2020-02-09 16:45] LABS: AST(SGOT) 28 U/L (15-37); Alanine Aminotransfer ALT/SGPT 34 U/L (13-56); Albumin, Serum 3.7 g/dL (3.2-5.0); Alkaline Phosphatase 106 U/L (45-117); Anion Gap 9 (5-15); BUN 16 mg/dL (7-18); BUN/Creat Ratio 25.2 RATIO (10-20); Calcium,Total 9.5 mg/dL (8.5-10.1); Chloride 104 mmol/L (98-107); Cholesterol 168 mg/dL (200); Creatinine, Serum 0.63 mg/dL (0.55-1.02); EST Glomerular Filtration Rate 98 mL/min (>60); Est Glom Filt Rate - Afr Amer 118 mL/min (>60); Globulin 3.8 g/dL (2.2-4.2); Glucose 119 mg/dL (74-106); High Density Lipoprotein 66 mg/dL; Potassium 3.9 mmol/L (3.5-5.1); Protein, Total 7.5 g/dL (6.4-8.2); Sodium Level 138 mmol/L (136-145); Thyroid Stim Hormone (TSH) 1.27 uIU/mL (0.358-3.74); Triglycerides 214 mg/dL; Very Low Density Lipoprotein 43 mg/dL (5-40)
== END ==
PROVIDERS: PCP Family Medicine Geriatric Medicine; Visit Provider Family Medicine Geriatric Medicine
DX: E55.9 Vitamin D deficiency, unspecified (principal); E78.5 Hyperlipidemia, unspecified; I10 Essential (primary) hypertension
CPT/HCPCS: 36415; 80053; 80061; 82306; 84443; 85025

== ENCOUNTER → 2020-07-03 14:22 | Outpatient (CLI) | payer MEDICARE, BC, SELFPAY ==
[2019-10-24 16:31] VITALS: BMI 37.0
[2020-07-03 15:09] LABS: Absolute Lymphocyte Count 2.12 X10^3/uL (0.83-4.51); Absolute Neutrophil Count 9.3 X10^3/uL (2.0-7.7); Basophil# 0.04 X10^3/uL; Basophil% 0.3 % (0-1); Eosinophil# 0.13 X10^3/uL; Hematocrit 39.4 % (37-47); Hemoglobin 12.5 g/dL (12.0-15.0); Lymphocyte # 2.12 X10^3/ul (4.0); Lymphocyte % 16.9 % (19-41); Mean Corp Hgb Conc 31.7 g/dL (32-36); Mean Corpuscular Hgb 27.9 pg (27.0-32.0); Mean Corpuscular Volume 87.9 fL (81-99); Mean Platelet Vol. 11.3 fl (6.2-12.0); Monocyte# 0.84 X10^3/uL; Monocyte% 6.7 % (0-10); NRBC Flagged by Analyzer 0 % (0-5); Neutrophil # 9.34 X10^3/uL (2.7-7.7); Neutrophil % 74.6 % (47-70); Platelet Count 292 K/mm3 (150-450); RBC Distribution Width CV 14.8 % (11.6-14.6); RBC Distribution Width SD 47.8 fl (35.1-43.9); Red Blood Count 4.48 M/mm3 (4.2-5.4); White Blood Count 12.5 K/mm3 (4.4-11.0)
[2020-07-03 16:04] LABS: ALB/GLOB Ratio 0.9 RATIO (0.9-2.4); AST(SGOT) 16 U/L (15-37); Alanine Aminotransfer ALT/SGPT 25 U/L (13-56); Albumin, Serum 3.5 g/dL (3.2-5.0); Alkaline Phosphatase 91 U/L (45-117); Anion Gap 7 (5-15); BUN 19 mg/dL (7-18); BUN/Creat Ratio 28.2 RATIO (10-20); Calcium,Total 9.2 mg/dL (8.5-10.1); Chloride 106 mmol/L (98-107); Creatinine, Serum 0.67 mg/dL (0.55-1.02); EST Glomerular Filtration Rate 91 mL/min (>60); Est Glom Filt Rate - Afr Amer 110 mL/min (>60); Globulin 3.9 g/dL (2.2-4.2); Glucose 148 mg/dL (74-106); Potassium 3.6 mmol/L (3.5-5.1); Protein, Total 7.4 g/dL (6.4-8.2); Sodium Level 141 mmol/L (136-145); Thyroid Stim Hormone (TSH) 1.14 uIU/mL (0.358-3.74)
[2020-07-04 08:26] LABS: Vitamin D,25 Hydroxy 46.7 ng/mL
== END ==
PROVIDERS: PCP Family Medicine Geriatric Medicine; Visit Provider Family Medicine Geriatric Medicine
DX: E55.9 Vitamin D deficiency, unspecified (principal); I10 Essential (primary) hypertension
CPT/HCPCS: 36415; 80053; 82306; 84443; 85025

== ENCOUNTER → 2020-08-29 10:58 | Outpatient (CLI) | payer MEDICARE, BC, SELFPAY ==
[2019-10-24 16:31] VITALS: BMI 37.0
[2020-08-29 11:49] LABS: Hematocrit 39.8 % (37-47); Hemoglobin 12.5 g/dL (12.0-15.0); Mean Corp Hgb Conc 31.4 g/dL (32-36); Mean Corpuscular Hgb 28.3 pg (27.0-32.0); Mean Platelet Vol. 10.7 fl (6.2-12.0); Platelet Count 249 K/mm3 (150-450); RBC Distribution Width CV 13.9 % (11.6-14.6); RBC Distribution Width SD 45.7 fl (35.1-43.9); Red Blood Count 4.42 M/mm3 (4.2-5.4); White Blood Count 9.9 K/mm3 (4.4-11.0)
[2020-08-29 12:31] LABS: Anion Gap 8 (5-15); BUN 12 mg/dL (7-18); BUN/Creat Ratio 18.1 RATIO (10-20); Calcium,Total 9.3 mg/dL (8.5-10.1); Chloride 103 mmol/L (98-107); Creatinine, Serum 0.66 mg/dL (0.55-1.02); EST Glomerular Filtration Rate 93 mL/min (>60); Est Glom Filt Rate - Afr Amer 112 mL/min (>60); Glucose 131 mg/dL (74-106); Potassium 3.6 mmol/L (3.5-5.1); Sodium Level 139 mmol/L (136-145)
== END ==
PROVIDERS: PCP Family Medicine Geriatric Medicine
DX: C67.9 Malignant neoplasm of bladder, unspecified (principal)
CPT/HCPCS: 36415; 80048; 85027

== ENCOUNTER → 2021-01-01 15:13 | Outpatient (CLI) | payer MEDICARE, BC, SELFPAY ==
[2019-10-24 16:31] VITALS: BMI 37.0
[2021-01-01 17:27] LABS: Absolute Lymphocyte Count 2.36 X10^3/uL (0.83-4.51); Absolute Neutrophil Count 6.5 X10^3/uL (2.0-7.7); Basophil# 0.08 X10^3/uL; Basophil% 0.8 % (0-1); Eosinophil# 0.29 X10^3/uL; Eosinophils% 2.8 % (0-5); Hematocrit 40.4 % (37-47); Hemoglobin 13.1 g/dL (12.0-15.0); Lymphocyte # 2.36 X10^3/ul (4.0); Lymphocyte % 23.1 % (19-41); Mean Corp Hgb Conc 32.4 g/dL (32-36); Mean Corpuscular Hgb 29.3 pg (27.0-32.0); Mean Corpuscular Volume 90.4 fL (81-99); Mean Platelet Vol. 11.7 fl (6.2-12.0); Monocyte# 0.94 X10^3/uL; Monocyte% 9.2 % (0-10); NRBC Flagged by Analyzer 0 % (0-5); Neutrophil # 6.53 X10^3/uL (2.7-7.7); Neutrophil % 63.9 % (47-70); Platelet Count 285 K/mm3 (150-450); RBC Distribution Width CV 14.1 % (11.6-14.6); RBC Distribution Width SD 46.6 fl (35.1-43.9); Red Blood Count 4.47 M/mm3 (4.2-5.4); White Blood Count 10.2 K/mm3 (4.4-11.0)
[2021-01-01 17:34] LABS: Vitamin D,25 Hydroxy 31.2 ng/mL
[2021-01-01 17:40] LABS: ALB/GLOB Ratio 1.1 RATIO (0.9-2.4); AST(SGOT) 12 U/L (15-37); Alanine Aminotransfer ALT/SGPT 20 U/L (13-56); Albumin, Serum 3.8 g/dL (3.2-5.0); Alkaline Phosphatase 99 U/L (45-117); Anion Gap 3 (5-15); BUN 11 mg/dL (7-18); BUN/Creat Ratio 17.7 RATIO (10-20); Calcium,Total 9.1 mg/dL (8.5-10.1); Chloride 106 mmol/L (98-107); Creatinine, Serum 0.62 mg/dL (0.55-1.02); EST Glomerular Filtration Rate 100 mL/min (>60); Est Glom Filt Rate - Afr Amer 121 mL/min (>60); Globulin 3.4 g/dL (2.2-4.2); Glucose 100 mg/dL (74-106); Potassium 4.2 mmol/L (3.5-5.1); Protein, Total 7.2 g/dL (6.4-8.2); Sodium Level 138 mmol/L (136-145)
== END ==
PROVIDERS: PCP Family Medicine Geriatric Medicine; Visit Provider Family Medicine Geriatric Medicine
DX: I10 Essential (primary) hypertension (principal); E55.9 Vitamin D deficiency, unspecified
CPT/HCPCS: 36415; 80053; 82306; 84443; 85025

== ENCOUNTER → 2021-07-02 15:07 | Outpatient (CLI) | payer MEDICARE, BC, SELFPAY ==
[2021-07-02 15:38] LABS: Absolute Lymphocyte Count 2.73 X10^3/uL (0.83-4.51); Absolute Neutrophil Count 13.7 X10^3/uL (2.0-7.7); Basophil# 0.07 X10^3/uL; Basophil% 0.4 % (0-1); Eosinophil# 0.27 X10^3/uL; Eosinophils% 1.5 % (0-5); Hematocrit 39.3 % (37-47); Lymphocyte # 2.73 X10^3/ul (0.83-4.51); Lymphocyte % 15.1 % (19-41); Mean Corp Hgb Conc 33.1 g/dL (32-36); Mean Corpuscular Hgb 29.3 pg (27.0-32.0); Mean Corpuscular Volume 88.5 fL (81-99); Mean Platelet Vol. 11.5 fl (6.2-12.0); Monocyte# 1.22 X10^3/uL; Monocyte% 6.8 % (0-10); NRBC Flagged by Analyzer 0 % (0-5); Neutrophil % 75.9 % (47-70); Platelet Count 300 K/mm3 (150-450); RBC Distribution Width CV 13.8 % (11.6-14.6); RBC Distribution Width SD 44.7 fl (35.1-43.9); Red Blood Count 4.44 M/mm3 (4.2-5.4); White Blood Count 18.1 K/mm3 (4.4-11.0)
[2021-07-02 16:21] LABS: ALB/GLOB Ratio 0.8 RATIO (0.9-2.4); AST(SGOT) 14 U/L (15-37); Alanine Aminotransfer ALT/SGPT 17 U/L (13-56); Albumin, Serum 3.3 g/dL (3.2-5.0); Alkaline Phosphatase 110 U/L (45-117); Anion Gap 5 (5-15); BUN 15 mg/dL (7-18); BUN/Creat Ratio 18.8 RATIO (10-20); Calcium,Total 9.2 mg/dL (8.5-10.1); Chloride 100 mmol/L (98-107); EST Glomerular Filtration Rate 75 mL/min (>60); Est Glom Filt Rate - Afr Amer 90 mL/min (>60); Globulin 4.1 g/dL (2.2-4.2); Glucose 99 mg/dL (74-106); Potassium 3.9 mmol/L (3.5-5.1); Protein, Total 7.4 g/dL (6.4-8.2); Sodium Level 138 mmol/L (136-145); Thyroid Stim Hormone (TSH) 1.28 uIU/mL (0.358-3.74)
== END ==
PROVIDERS: PCP Family Medicine Geriatric Medicine; Visit Provider Family Medicine Geriatric Medicine
DX: E11.9 Type 2 diabetes mellitus without complications (principal); E55.9 Vitamin D deficiency, unspecified; I10 Essential (primary) hypertension
CPT/HCPCS: 36415; 80053; 82306; 84443; 85025

== ENCOUNTER → 2021-07-08 14:31 | Outpatient (CLI) | payer MEDICARE, BC, SELFPAY ==
[2021-07-08 17:03] LABS: Absolute Lymphocyte Count 2.69 X10^3/uL (0.83-4.51); Absolute Neutrophil Count 6.1 X10^3/uL (2.0-7.7); Basophil# 0.05 X10^3/uL; Basophil% 0.5 % (0-1); Eosinophil# 0.34 X10^3/uL; Eosinophils% 3.5 % (0-5); Hematocrit 39.7 % (37-47); Hemoglobin 12.7 g/dL (12.0-15.0); Lymphocyte # 2.69 X10^3/ul (0.83-4.51); Lymphocyte % 27.3 % (19-41); Mean Corpuscular Hgb 28.7 pg (27.0-32.0); Mean Corpuscular Volume 89.8 fL (81-99); Mean Platelet Vol. 11.2 fl (6.2-12.0); Monocyte# 0.67 X10^3/uL; Monocyte% 6.8 % (0-10); NRBC Flagged by Analyzer 0 % (0-5); Neutrophil # 6.06 X10^3/uL (2.7-7.7); Neutrophil % 61.6 % (47-70); Platelet Count 301 K/mm3 (150-450); Red Blood Count 4.42 M/mm3 (4.2-5.4); White Blood Count 9.8 K/mm3 (4.4-11.0)
== END ==
PROVIDERS: PCP Family Medicine Geriatric Medicine; Visit Provider Family Medicine Geriatric Medicine
DX: D72.89 Other specified disorders of white blood cells (principal)
CPT/HCPCS: 36415; 85025

== ENCOUNTER → 2021-07-09 08:43 | Outpatient (CLI) | payer MEDICARE, BC, SELFPAY | PROVIDERS: PCP Family Medicine Geriatric Medicine; Referring Provider Family Medicine Geriatric Medicine; Visit Provider Family Medicine Geriatric Medicine | DX: R68.83 Chills (without fever) (principal) | CPT/HCPCS: 87635; 87804; 87807; C9803; U0005; U0003 ==

== ENCOUNTER 2021-09-13 13:00 | Outpatient (RCR) | payer MEDICARE, BC, SELFPAY ==
--- NOTE | 2021-07-17 11:24 | HP.PTEVAL_ITS ---
Patient's Visit Information ITZ VEGAS is a 75 year old F referred to Physical Therapy by Dr. Jaya Jung MD with a diagnosis of Gait difficulty.. Date of Evaluation: 07/17/21 Physical Therapist: Mio Rodriguez DPT, OCS, CSCS - Visit Plan Frequency: 2-3x /Week Duration: 4-6 Weeks Plan: 2-3x/week for 4-6 weeks for. 1. start with HS and gastroc stretches and LE and core strength via ex pt can do at home and work toward I daily. 2. Work toward gym program once I with HEP for LE strength. 3. include balance ex for FW weight shift adn vestibular challenges. - Subjective I get out of breath easy and I fall and balance is not great. I don't do anything I wobble. Has fallen 2 or three times at home usually catching foot on ground or falling out of bed one day when she was strtled on the edge of the bed. Last fall was a couple weeks ago. Very sedentary, sits with at [employer] many days per week. Doesn't feel like she has the gumption. Is on antidepressants which help a little. Dog two weeks and that my little nicole. Lives with granddaughter right now who has been there two weeks and I enjoy having her. Lives in one story house with two steps to enter with railing. Feels weak on steps and likes to have someone with her. Drives herself. Welfare Eligibility Interviewer come in every other week to help with the house. Dresses self. bathroom anad shower I in tub shower. Can cook meals but snacks more than meals. Goes to [employer] but sometimes does it online. No regular exercises. Hobbies: used to knit and listen to books. Does not knit but does listen to books. No spinnning other than intermittently getting up from sitting too long. No neuropathy. - Pain LBP Pain Intensity (Out of 10): 0 Pain Intensity Range: 0, 5 Comment: standing long time is worse - Objective Walks slowly with short steps back to PT 200 feet slow but I. Trasnfers chair with UE I. Bed trasnfers show weakness in core but able without assist with increased time. Steps require rail and are reciprocal up and down and show weakness B LE. AROM hip and knee WFL, ankles missing some DF at -1 B AROM, otherwise WFL. reflexes 1/3 patella and achilles B. Sensation LE WNL to gross light touch B. Strength ankles 4-, knee flex/ext 4, hip abd, ext 3 and flexion 4-. Tightness prresent in HS and gastroc B, otherwise LE WFL. Core strength 3/5. coordination to reciprocal toe/heel and hand tapping is good. - Balance/Special Test Scores Functional Gait Assessment Score: 23 % Disability: 23.3400 CATSIB Score (Max score 120 seconds): 83 Lower Extremity Functional Score: 36 TUG Test Time Seconds: 17 30 Second Chair Rise Test Seconds: 11 - Goals Goal 1:: I approp HEP to help with acitivity level and diminish fall risk Goal Time Frame: 2-4 Weeks Goal 2:: I gym ex program for [employer] for overall health Goal Time Frame: 4-6 Weeks Goal 3:: Pt feel 75% better overall in depression and ability to get around. Goal Time Frame: 4-6 Weeks Goal 4:: TUG 10 seconds. Sit to stand 30 second test 17. FGA . to help improve health and diminsih fallr isk Goal Time Frame: 4-6 Weeks Goal 5:: 50 LEFS score to show improved subjective mobility. Goal Time Frame: 4-6 Weeks - Rehabilitation Potential Physical Therapy Diagnosis: H/O falls and has weakness form sedentarism. Rehabilitation Potential: Fair - Anticipated Interventions Patient/Client Instruction: Educate patient on: Condition, Plan of Care For the Purpose of:: To decrease pain, To increase ROM, To improve muscle performance and motor function, To improve ability of physical actions for donnell e/community/work/leisure Therapeutic Exercise to Include: Strength training, Postural training, Flexibilty training, Gait and locomotor training For the Purpose of:: To decrease pain, To increase ROM, To improve muscle performance and motor function, To increase tolerance to activity/condition/position, To improve ability of physical actions for ho me/community/work/leisure Thank you for the opportunity to evaluate your patient. For Medicare and Medicare HMO plans, please review the plan of care and approve it. It will need to be FAXED BACK to us at [phone] for Medicare purposes. For Medicare only, by signing this I certify the plan of care. Please let me know if there are questions or concerns regarding this plan of care. Physician Signature: Date:
--- NOTE | 2021-08-12 10:59 | HP.PTREVAL_ITS ---
Dr. Jaya Jung MD, It has been my pleasure to treat ITZ VEGAS over the last 9 visits for Gait difficulty.. Please see the progress note below for an update on the physical therapy plan of care! Subjective: I am getting better. Things are easier like walking form room to room. Getting up from chair seems easier. 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 No falls and balance feels better. Can catch self if starts to wobble. Doing sitting ex at home at [employer]. Objective/Function: Walking more confident and quicker and improved today with I trasnfers and gait, one railing on steps reciprocally. 30 second sit to stand 2 better, TUG much better adn FGa improved. Everything going the right way functionally. Needs I and consistency. Plan Plan: 3x/week for 3 weeks for getting I in gym program as patient to join [facility] [employer]. Work to I with leg and balance activities and set up. Balance/Gait/Functional tests - Balance/Special Test Scores Functional Gait Assessment Score: 25 % Disability: 16.6700 CATSIB Score (Max score 120 seconds): 83 Lower Extremity Functional Score: 60 TUG Test Time Seconds: 11 Tug Test: <20 sec.=mostly independent 30 Second Chair Rise Test Seconds: 12 Goals Goal 1:: I approp HEP to help with acitivity level and diminish fall risk Goal Time Frame: 2-4 Weeks Goal Progress: sitting Goal 2:: I gym ex program for [employer] for overall health Goal Time Frame: 4-6 Weeks Goal Progress: [facility], progressing Goal 3:: Pt feel 75% better overall in depression and ability to get around. Goal Time Frame: 4-6 Weeks Goal Progress: 65 approp. Goal 4:: TUG 10 seconds. Sit to stand 30 second test 17. FGA 25/30. to help improve health and diminsih fallr isk Goal Time Frame: 4-6 Weeks Goal Progress: Progressing,aprt met Goal 5:: 50 LEFS score to show improved subjective mobility. Goal Time Frame: 4-6 Weeks Goal Progress: Goal Met(questionable) Anticipated Interventions Patient/Client Instruction: Educate patient on: Condition, Plan of Care For the Purpose of:: To decrease pain, To increase ROM, To improve muscle performance and motor function, To improve ability of physical actions for home/community/work/leisure Therapeutic Exercise to Include: Strength training, Postural training, Flexibilty training, Gait and locomotor training For the Purpose of:: To decrease pain, To increase ROM, To improve muscle performance and motor function, To increase tolerance to activity/condition/position, To improve ability of physical actions for home/community/work/leisure Please do not hesitate to contact me at [phone] by phone or if you have questions or concerns regarding this new plan of care! Sincerely, Mio Rodriguez, DPT, OCS, CSCS
--- NOTE | 2021-09-02 13:41 | HP.PTREVAL ---
Dr. Jaya Jung MD, It has been my pleasure to treat ITZ VEGAS over the last 15 visits for Gait difficulty.. Please see the progress note below for an update on the physical therapy plan of care! Subjective: Missed on eweek in this plan of care, otherwise has been compliant 3x/.week. Was sick for that week. Overall legs feel stronger and bending and stepping up easier. More mobile. No falls, no AD needed. No LOB. Activities at home are pretty normal but realizes she should move more. Laundry and housework are going OK. Sees her daily in [place] and that takes up time. Objective/Function: improving FGA and TUG and subjectively functional improvment. Pt feels comfortable taking list of ex(given today) and joining and continuing on her own however I think complinace will be an issue. Appropriate to continue abbreviated basis to ensure progressing and comliant. Plan Plan: weekly in pT x 4 weeks and 2x/week as member on her own to do ex given today in gym(see list) Progress her machines adding pulldown, knee extension and funcitonal strength to tolerance each visit. Fair prognosis to new goal with compliance. Balance/Gait/Functional tests - Balance/Special Test Scores Functional Gait Assessment Score: 26 % Disability: 13.3400 CATSIB Score (Max score 120 seconds): 83 Lower Extremity Functional Score: 50 TUG Test Time Seconds: 9 Tug Test: <20 sec.=mostly independent 30 Second Chair Rise Test Seconds: 11 Goals Goal 1:: I approp HEP to help with acitivity level and diminish fall risk Goal Time Frame: 2-4 Weeks Goal Progress: sit at commercials. Goal 2:: I gym ex program for [facility] for overall health Goal Time Frame: 4-6 Weeks Goal Progress: met, compliance? Goal 3:: Pt feel 75% better overall in depression and ability to get around. Goal Time Frame: 4-6 Weeks Goal Progress: % Goal 4:: TUG 10 seconds. Sit to stand 30 second test 17. FGA 25/30. to help improve health and diminsih fallr isk Goal Time Frame: 4-6 Weeks Goal Progress: not sit to stand test Goal 5:: 50 LEFS score to show improved subjective mobility. Goal Time Frame: 4-6 Weeks Goal Progress: Goal Met Goal 6:: Compliant and I with gym ex 2x/week on own to compliment her weekly theray before d/c Goal Time Frame: 2-4 Weeks Goal Progress: NEW GOAL Anticipated Interventions Patient/Client Instruction: Educate patient on: Condition, Plan of Care For the Purpose of:: To decrease pain, To increase ROM, To improve muscle performance and motor function, To improve ability of physical actions for home/community/work/leisure Therapeutic Exercise to Include: Strength training, Postural training, Flexibilty training, Gait and locomotor training For the Purpose of:: To decrease pain, To increase ROM, To improve muscle performance and motor function, To increase tolerance to activity/condition/position, To improve ability of physical actions for home/community/work/leisure Please do not hesitate to contact me at [phone] by phone or if you have questions or concerns regarding this new plan of care! Sincerely, Mio Rodriguez, DPT, OCS, CSCS
--- NOTE | 2021-11-12 12:36 | HP.PT.NRP ---
ITZ VEGAS was seen in my office for initial evaluation on 07/17/21. The following Plan of Care was established for this patient: Initial Frequency: 2-3x /Week Initial Duration: 4-6 Weeks Patient/Client Instruction: Educate patient on: Condition, Plan of Care For the Purpose of:: To decrease pain, To increase ROM, To improve muscle performance and motor function, To improve ability of physical actions for home/community/work/leisure Therapeutic Exercise to Include: Strength training, Postural training, Flexibilty training, Gait and locomotor training For the Purpose of:: To decrease pain, To increase ROM, To improve muscle performance and motor function, To increase tolerance to activity/condition/position, To improve ability of physical actions for home/community/work/leisure This patient was last seen in our office 09/13/21. Pertinent comments regarding their Physical therapy will appear below: Pt seen 17 visits of POC and was 65+% better. She has cancelled her last 4 visits and neglected to reschedule. at this point, it has been over two months and will discontinue her from my care. At this point I will be discontinuing this patient from physical therapy. I would be happy to see this patient again in the future if found appropriate by the physician. Thank you! Mio Rodriguez, DPT, OCS, CSCS Balance/Gait/Functional tests - Balance/Special Test Scores Functional Gait Assessment Score: 26 % Disability: 13.3400 CATSIB Score (Max score 120 seconds): 83 Lower Extremity Functional Score: 50 TUG Test Time Seconds: 9 Tug Test: <20 sec.=mostly independent 30 Second Chair Rise Test Seconds: 11
== END 2021-09-13 19:00 | disposition home or self-care (01) ==
LOC: PT 13:00
PROVIDERS: PCP Family Medicine Geriatric Medicine; Referring Provider Family Medicine Geriatric Medicine; Visit Provider Family Medicine Geriatric Medicine
DX: R26.9 Unspecified abnormalities of gait and mobility (principal)
CPT/HCPCS: 97110; 97162; 97530

== ENCOUNTER 2021-09-30 06:02 | Outpatient (CLI) | payer MEDICARE, BC, SELFPAY ==
--- NOTE | 2021-09-30 13:41 | STRESSREP ---
Stress Test Report Pharmacologic myocardial perfusion stress test. 76-year-old lady with a history of atrial fibrillation. 0.4 mg of regadenoson was infused. Protocol followed by rapid intravenous saline flush injection continuous EKG monitoring was performed. The patient maintained sinus rhythm throughout the recording. The maximum heart rate attained was noted to be 81 bpm which was 55% of max impact at heart rate the maximum workload was 1 metabolic equivalent. At rest there were no ST or T wave changes noted to suggest abnormal flow reserve and at peak infusion nonspecific ST changes were noted with did not meet the criteria for ischemia. No clinical angina was noted. The peak blood pressure is 162/112 mmHg. Myocardial perfusion protocol. 14.1 mCi of technetium 99m sestamibi was injected at rest. 0.4 mg of regadenoson was infused per usual protocol. At peak infusion 42.0 mCi of technetium 99m sestamibi was injected stress images were obtained stress and rest images were reconstructed and compared in the short axis vertical long and horizontal long axis. Gated images were also obtained. Perfusion SPECT analysis: Review of the stress images demonstrate normal uptake of tracer noted in all areas of the myocardium. The resting images similarly demonstrate a normal uptake of tracer noted in all areas of the myocardium. No areas of reversibility are noted suggest ischemia and no previous infarct is noted. Gated SPECT analysis: The gated ejection fraction is 76%. Conclusion: Normal pharmacologic myocardial perfusion stress test. Preserved ejection fraction. No atrial fibrillation noted during test.
== END 2021-09-30 23:59 | disposition home or self-care (01) ==
PROVIDERS: PCP Family Medicine Geriatric Medicine; Referring Provider Internal Medicine Cardiovascular Disease; Visit Provider Internal Medicine Cardiovascular Disease
DX: R94.31 Abnormal electrocardiogram [ECG] [EKG] (principal); I48.91 Unspecified atrial fibrillation; I48.92 Unspecified atrial flutter; I97.89 Other postprocedural complications and disorders of the circulatory system, not elsewhere classified
CPT/HCPCS: 78452; 93017; 93306; A9500; Q9957; A4216; C8929; J2785

== ENCOUNTER 2021-12-24 10:54 | Outpatient (CLI) | payer MEDICARE, BC, SELFPAY | END 2021-12-24 23:59 | disposition home or self-care (01) | LOC: PSN 10:56 | PROVIDERS: PCP Family Medicine Geriatric Medicine; Referring Provider Nurse Practitioner Gerontology; Visit Provider Nurse Practitioner Gerontology | DX: R00.1 Bradycardia, unspecified (principal) | CPT/HCPCS: 93225; 93226 ==

== ENCOUNTER 2022-01-02 14:59 | Outpatient (CLI) | payer MEDICARE, BC, SELFPAY ==
[2022-01-02 17:14] LABS: Absolute Lymphocyte Count 2.45 X10^3/uL (0.83-4.51); Basophil# 0.06 X10^3/uL; Basophil% 0.5 % (0-1); Eosinophil# 0.18 X10^3/uL; Eosinophils% 1.6 % (0-5); Hematocrit 41.6 % (37-47); Hemoglobin 13.4 g/dL (12.0-15.0); Lymphocyte # 2.45 X10^3/ul (0.83-4.51); Lymphocyte % 21.3 % (19-41); Mean Corp Hgb Conc 32.2 g/dL (32-36); Mean Corpuscular Hgb 29.3 pg (27.0-32.0); Mean Platelet Vol. 11.3 fl (6.2-12.0); Monocyte# 0.79 X10^3/uL; Monocyte% 6.9 % (0-10); NRBC Flagged by Analyzer 0 % (0-5); Neutrophil # 7.96 X10^3/uL (2.7-7.7); Neutrophil % 69.2 % (47-70); Platelet Count 319 K/mm3 (150-450); RBC Distribution Width CV 13.9 % (11.6-14.6); RBC Distribution Width SD 46.8 fl (35.1-43.9); Red Blood Count 4.57 M/mm3 (4.2-5.4); White Blood Count 11.5 K/mm3 (4.4-11.0)
[2022-01-02 18:02] LABS: Vitamin D,25 Hydroxy 41.2 ng/mL
[2022-01-02 18:21] LABS: AST(SGOT) 22 U/L (15-37); Alanine Aminotransfer ALT/SGPT 29 U/L (13-56); Albumin, Serum 3.8 g/dL (3.2-5.0); Alkaline Phosphatase 82 U/L (45-117); Anion Gap 6 (5-15); BUN 13 mg/dL (7-18); BUN/Creat Ratio 20.7 RATIO (10-20); Calcium,Total 9.2 mg/dL (8.5-10.1); Chloride 103 mmol/L (98-107); Creatinine, Serum 0.63 mg/dL (0.55-1.02); EST Glomerular Filtration Rate 98 mL/min (>60); Est Glom Filt Rate - Afr Amer 119 mL/min (>60); Globulin 3.9 g/dL (2.2-4.2); Glucose 96 mg/dL (74-106); Potassium 4.7 mmol/L (3.5-5.1); Protein, Total 7.7 g/dL (6.4-8.2); Sodium Level 135 mmol/L (136-145); Thyroid Stim Hormone (TSH) 1.56 uIU/mL (0.358-3.74)
== END 2022-01-02 23:59 | disposition home or self-care (01) ==
LOC: POLAB3 15:01
PROVIDERS: PCP Family Medicine Geriatric Medicine; Visit Provider Family Medicine Geriatric Medicine
DX: I10 Essential (primary) hypertension (principal); E55.9 Vitamin D deficiency, unspecified
CPT/HCPCS: 36415; 80053; 82306; 84443; 85025

== ENCOUNTER 2022-01-06 16:53 | Outpatient (CLI) | payer MEDICARE, BC, SELFPAY ==
--- NOTE | 2022-01-06 17:10 | RAD_ITS ---
STUDY: XR Chest 2 Views 01/06/2022 6:06 PM REASON FOR EXAM: Female, 76 years old. CHEST PAIN COUGH COMPARISON: None TECHNIQUE: XR Chest 2 Views FINDINGS: There is no demonstrated pleural abnormality. Normal heart size. Normal mediastinum. Normal abi. Prominent appearing increased interstitial lung markings. Normal visualized pulmonary arteries. There is atherosclerotic calcification of the aortic arch with tortuosity. There are diffuse degenerative changes of the visualized thoracic spine. There is degenerative osteoarthritis of the bilateral shoulders. There is no demonstrated abnormality of the visualized soft tissue structures of the upper abdomen. RAD/Chest PA and Lateral IMPRESSION: There are no acute findings. Electronically Signed: Sukumar Tenorio MD at 17:07 EDT ,
== END 2022-01-06 23:59 | disposition home or self-care (01) ==
PROVIDERS: PCP Family Medicine Geriatric Medicine; Referring Provider Family Medicine Geriatric Medicine; Visit Provider Family Medicine Geriatric Medicine
DX: R05.9 Cough, unspecified (principal)
CPT/HCPCS: 71046

== ENCOUNTER 2022-01-07 10:02 | Outpatient (CLI) | payer MEDICARE, BC, SELFPAY | END 2022-01-07 23:59 | disposition home or self-care (01) | LOC: PSN 10:04 | PROVIDERS: PCP Family Medicine Geriatric Medicine; Referring Provider Family Medicine Geriatric Medicine; Visit Provider Family Medicine Geriatric Medicine | DX: R68.83 Chills (without fever) (principal); Z20.822 Contact with and (suspected) exposure to COVID-19 | CPT/HCPCS: 87426; 87804; 87807; C9803 ==

== ENCOUNTER → 2022-02-05 | Outpatient (CLI) | payer MEDICARE, BC, SELFPAY ==
--- NOTE | 2022-02-05 12:21 | BI_ITS ---
MAMMOGRAPHY - BILATERAL SCREENING REASON FOR EXAM: Female, 76 years old. Routine annual screening examination. PERTINENT HISTORY: Non-contributory. TECHNIQUE: Digital bilateral breast liz (3D mammographic acquisition) in the CC and MLO projections. 2-D mediolateral oblique (MLO) and craniocaudad (CC) views of both breasts were obtained. CAD: Full Field Digital Mammography with Computer Added Detection was performed. COMPARISON: Comparison is made with prior study dated 05/14/2018 and 05/08/2015. FINDINGS: Breast Composition: There are scattered areas of fibroglandular density. There are no dominant masses or suspicious calcifications. No other significant abnormalities are identified. There has been no significant change since the prior study. BI/SCRN MAMM (CAD)W/LIZ BILAT IMPRESSION: Stable bilateral screening mammogram. Yearly follow-up mammogram recommended. (A) ASSESSMENT CATEGORY: BIRADS Category 2: Benign. A letter regarding these results will be sent to the patient by the facility within 30 days. Approximately 10% of breast cancers are not detected by mammography. A normal mammogram should not delay biopsy of a clinically suspicious abnormality. [id number]: Electronically Signed: Efrain Rawls MD at 13:03 EDT ,
== END | disposition home or self-care (01) ==
LOC: OPBI 12:19
PROVIDERS: PCP Family Medicine Geriatric Medicine; Visit Provider Family Medicine Geriatric Medicine
DX: Z12.31 Encounter for screening mammogram for malignant neoplasm of breast (principal)
CPT/HCPCS: 77063; 77067

== ENCOUNTER → 2022-04-14 | Outpatient (CLI) | payer MEDICARE, BC, SELFPAY ==
[2022-04-14 17:24] LABS: Absolute Lymphocyte Count 2.54 X10^3/uL (0.83-4.51); Absolute Neutrophil Count 9.2 X10^3/uL (2.0-7.7); Basophil# 0.08 X10^3/uL; Basophil% 0.6 % (0-1); Eosinophil# 0.23 X10^3/uL; Eosinophils% 1.8 % (0-5); Hematocrit 43.2 % (37-47); Hemoglobin 13.6 g/dL (12.0-15.0); Lymphocyte # 2.54 X10^3/ul (0.83-4.51); Lymphocyte % 19.5 % (19-41); Mean Corp Hgb Conc 31.5 g/dL (32-36); Mean Corpuscular Hgb 29.4 pg (27.0-32.0); Mean Corpuscular Volume 93.3 fL (81-99); Mean Platelet Vol. 11.4 fl (6.2-12.0); Monocyte# 0.91 X10^3/uL; NRBC Flagged by Analyzer 0 % (0-5); Neutrophil # 9.17 X10^3/uL (2.7-7.7); Neutrophil % 70.6 % (47-70); Platelet Count 362 K/mm3 (150-450); RBC Distribution Width CV 14.6 % (11.6-14.6); RBC Distribution Width SD 49.9 fl (35.1-43.9); Red Blood Count 4.63 M/mm3 (4.2-5.4)
[2022-04-14 18:35] LABS: ALB/GLOB Ratio 0.8 RATIO (0.9-2.4); AST(SGOT) 33 U/L (15-37); Alanine Aminotransfer ALT/SGPT 43 U/L (13-56); Albumin, Serum 3.4 g/dL (3.2-5.0); Alkaline Phosphatase 96 U/L (45-117); Anion Gap 8 (5-15); BUN 17 mg/dL (7-18); Calcium,Total 9.7 mg/dL (8.5-10.1); Chloride 102 mmol/L (98-107); Creatinine, Serum 0.81 mg/dL (0.55-1.02); EST Glomerular Filtration Rate 73 mL/min (>60); Est Glom Filt Rate - Afr Amer 88 mL/min (>60); Glucose 108 mg/dL (74-106); Potassium 4.3 mmol/L (3.5-5.1); Protein, Total 7.4 g/dL (6.4-8.2); Sodium Level 140 mmol/L (136-145); Thyroid Stim Hormone (TSH) 1.59 uIU/mL (0.358-3.74)
[2022-04-14 19:09] LABS: Vitamin D,25 Hydroxy 37.4 ng/mL
== END | disposition home or self-care (01) ==
LOC: POLAB3 13:38
PROVIDERS: PCP Family Medicine Geriatric Medicine; Visit Provider Family Medicine Geriatric Medicine
DX: E55.9 Vitamin D deficiency, unspecified (principal); I10 Essential (primary) hypertension
CPT/HCPCS: 36415; 80053; 82306; 84443; 85025

== ENCOUNTER 2022-05-26 12:00 | Outpatient (RCR) | payer MEDICARE, BC, SELFPAY ==
--- NOTE | 2022-03-17 15:04 | HP.PTEVAL_ITS ---
Patient's Visit Information ITZ VEGAS is a 76 year old F referred to Physical Therapy by Dr. Jaya Jung MD with a diagnosis of Hx of falls, weakness. Date of Evaluation: 03/17/22 Physical Therapist: Sukumar Chaves, PT, ATC - Visit Plan Frequency: 2-3x /Week Duration: 4-6 Weeks Plan: B LE strengthening, balance and proprio, gait training, stair negotiation, nustep, and HEP - Subjective Pt reports she has been falling for the past 2-3 months. Pt reports some times its because she loses balance, or stubs her toe on the carpet. Pt reports the worst thing about her falls is that she is unable to get up off the ground when she does fall. Pt denies any tingling or numbness in her LE's, and notes she is able to feel her feet. Pt reports some of her trouble stems from being depressed secondary to the condition her ailing is in. Pt reports no serious injuries secondary to her falls. 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 Pt reports she gets dizy at times, especially if she gets up to quick. Pt reports she had to use a walker in the past secondary to being debilitated from a gall bladder infection. Otherwise, pt has not used an AD. Pt denies any pain at this time. Pt reports her main goal for being here to day is to improve her balance and LE strength to prevent future falls. - Objective Neuro: B LE sensation is WNL to light touch. B patellar reflex= 1/3. ROM: B LE's are WFL when compared bilaterally. MMT: B hips are 4+/5 throughout, B knee flex and ext= 4-/5. Gait: Pt is able to ambulate 680 feet until feeling fatigued and needing a break. FGA: 20/30 (normal is 25 for her age) - Balance/Special Test Scores Functional Gait Assessment Score: 20 % Disability: 33.3400 - Goals Goal 1:: Increase B LE strength x 1 grade to aid with stair negotiation Goal Time Frame: 4-6 Weeks Goal 2:: Increase FGA score x 5 points to aid with preventing future falls Goal Time Frame: 4-6 Weeks Goal 3:: Pt will be able to ambulate 1000' with sbax1 to aid with community ambulation Goal Time Frame: 4-6 Weeks Goal 4:: I with HEP Goal Time Frame: 4-6 Weeks - Rehabilitation Potential Physical Therapy Diagnosis: Pt has a Hx of falls, LE weakness, and difficulty with prolonged ambulation secondary to debility Rehabilitation Potential: Good - Anticipated Interventions Patient/Client Instruction: Educate patient on: Condition, Plan of Care For the Purpose of:: To improve self management Therapeutic Exercise to Include: Strength training, Endurance training, Balance training, Gait and locomotor training, Dynamic Lumbar Stabilization For the Purpose of:: To improve muscle performance and motor function, To improve ability to perform ADL's, To increase tolerance to activity/condition/position Thank you for the opportunity to evaluate your patient. For Medicare and Medicare HMO plans, please review the plan of care and approve it. It will need to be FAXED BACK to us at [phone] for Medicare purposes. For Medicare only, by signing this I certify the plan of care. Please let me know if there are questions or concerns regarding this plan of care. Physician Signature: Date:
--- NOTE | 2022-04-18 13:05 | HP.PTREVAL ---
Dr. Jaya Jung MD, It has been my pleasure to treat ITZ VEGAS over the last 12 visits for Hx of falls, weakness. Please see the progress note below for an update on the physical therapy plan of care! Subjective: Pt reports she has significantly improved since the beginning of her Rx's. Pt reports her R shoulder is sore today. Objective/Function: Pt still has difficulty with stair negotiation. MMT: B hip abd and add= 5/5 throughout. B hip flex, knee ext and flex= 4/5 throughout. FGA: . Gait: Pt is able to ambulate 680 feet until becoming fatigued and needing a rest break. Plan Plan: Cont to emphasize B LE strengthening, functional balance, and gait endurance Balance/Gait/Functional tests - Balance/Special Test Scores Functional Gait Assessment Score: 22 % Disability: 26.6700 Lower Extremity Functional Score: 45 TUG Test Time Seconds: 10.22 30 Second Chair Rise Test Seconds: 7 Goals Goal 1:: Increase B LE strength x 1 grade to aid with stair negotiation Goal Time Frame: 4-6 Weeks Goal Progress: Progressing Goal 2:: Increase FGA score x 5 points to aid with preventing future falls Goal Time Frame: 4-6 Weeks Goal Progress: Progressing Goal 3:: Pt will be able to ambulate 1000' with sbax1 to aid with community ambulation Goal Time Frame: 4-6 Weeks Goal Progress: Progressing Goal 4:: I with HEP Goal Time Frame: 4-6 Weeks Goal Progress: Progressing Anticipated Interventions Patient/Client Instruction: Educate patient on: Condition, Plan of Care For the Purpose of:: To improve self management Therapeutic Exercise to Include: Strength training, Endurance training, Balance training, Gait and locomotor training, Dynamic Lumbar Stabilization For the Purpose of:: To improve muscle performance and motor function, To improve ability to perform ADL's, To increase tolerance to activity/condition/position Please do not hesitate to contact me at [phone] by phone or if you have questions or concerns regarding this new plan of care! Sincerely, Sukumar Chaves, PT, ATC
--- NOTE | 2022-05-26 13:04 | HP.PTDCSUM ---
It has been my pleasure to treat ITZ VEGAS referred by Dr. Jaya Jung MD, with the diagnosis of Hx of falls, weakness for a total of 22 visit(s). Discharge Date: 05/26/22 Please see the following information for a summary of their discharge status. Subjective: Pt. reports overall doing much better. No falls. She is I with her HEP without issues. Pt. believes she is doing well with this. She is C/O increased R shoulder pain with certain activities at home. mid back Pain Intensity (Out of 10): 0 R shoulder Pain Intensity (Out of 10): 4 % Improvement: 95 Objective/Function: Pt. walked 1100' with out AD without issues. Mild fatigue noted. stairs- reciprocal normal pattern with use of BHR. TU.9sec without AD. 5/5 BLEs strength throughout. No pain noted. FGA: . assess RTC pathology. Mild increase with ER strength testing, painful with impingement testing. No evidence of larger tear. Goal 1:: Increase B LE strength x 1 grade to aid with stair negotiation Goal Progress: Goal Met Goal 2:: Increase FGA score x 5 points to aid with preventing future falls Goal Progress: Goal Met Goal 3:: Pt will be able to ambulate 1000' with sbax1 to aid with community ambulation Goal Progress: Goal Met Goal 4:: I with HEP Goal Progress: Goal Met Plan: PT. D/C from PT at this point in time Discharge Comments: Pt. is doing well with her balance and strength of her LEs. Pt. did well with all of her TUG and FGA scores and have all improved. She is having some shoulder pain which appears to be RTC pathology. I gave her some exercises for RTC strengthening. She is to complete these, but if is still having issues she is to follow up with physician. If there are questions or concerns regarding this patient's physical therapy, please feel free to call me at [phone]. Thank you for the referral of this patient. Sincerely, Cameron Chavezos, DPT Balance/Gait/Functional tests - Balance/Special Test Scores Functional Gait Assessment Score: 26 % Disability: 13.3400 Lower Extremity Functional Score: 58 TUG Test Time Seconds: 10.22 30 Second Chair Rise Test Seconds: 7
== END 2022-05-26 19:00 | disposition home or self-care (01) ==
LOC: PT 12:00
PROVIDERS: PCP Family Medicine Geriatric Medicine; Referring Provider Family Medicine Geriatric Medicine; Visit Provider Family Medicine Geriatric Medicine
DX: M19.90 Unspecified osteoarthritis, unspecified site (principal); R26.9 Unspecified abnormalities of gait and mobility
CPT/HCPCS: 97110; 97116; 97161; 97164

== ENCOUNTER → 2022-07-17 | Outpatient (CLI) | payer MEDICARE, BC, SELFPAY ==
[2022-07-17 12:20] LABS: Absolute Lymphocyte Count 1.82 X10^3/uL (0.83-4.51); Absolute Neutrophil Count 6.6 X10^3/uL (2.0-7.7); Basophil# 0.05 X10^3/uL; Basophil% 0.5 % (0-1); Eosinophil# 0.12 X10^3/uL; Eosinophils% 1.3 % (0-5); Hemoglobin 12.5 g/dL (12.0-15.0); Lymphocyte # 1.82 X10^3/ul (0.83-4.51); Lymphocyte % 19.3 % (19-41); Mean Corp Hgb Conc 31.3 g/dL (32-36); Mean Corpuscular Hgb 28.2 pg (27.0-32.0); Mean Corpuscular Volume 90.3 fL (81-99); Monocyte# 0.79 X10^3/uL; Monocyte% 8.4 % (0-10); NRBC Flagged by Analyzer 0 % (0-5); Platelet Count 358 K/mm3 (150-450); RBC Distribution Width CV 14.5 % (11.6-14.6); RBC Distribution Width SD 47.6 fl (35.1-43.9); Red Blood Count 4.43 M/mm3 (4.2-5.4); White Blood Count 9.4 K/mm3 (4.4-11.0)
[2022-07-17 12:44] LABS: ALB/GLOB Ratio 0.9 RATIO (0.9-2.4); AST(SGOT) 25 U/L (15-37); Alanine Aminotransfer ALT/SGPT 31 U/L (13-56); Albumin, Serum 3.4 g/dL (3.2-5.0); Alkaline Phosphatase 89 U/L (45-117); Anion Gap 9 (5-15); BUN 13 mg/dL (7-18); BUN/Creat Ratio 16.9 RATIO (10-20); Calcium,Total 9.3 mg/dL (8.5-10.1); Chloride 102 mmol/L (98-107); Creatinine, Serum 0.77 mg/dL (0.55-1.02); EST Glomerular Filtration Rate 77 mL/min (>60); Est Glom Filt Rate - Afr Amer 94 mL/min (>60); Globulin 3.9 g/dL (2.2-4.2); Glucose 118 mg/dL (74-106); Potassium 4.2 mmol/L (3.5-5.1); Protein, Total 7.3 g/dL (6.4-8.2); Sodium Level 137 mmol/L (136-145); Thyroid Stim Hormone (TSH) 1.58 uIU/mL (0.358-3.74)
[2022-07-17 12:48] LABS: Vitamin D,25 Hydroxy 42.1 ng/mL
== END | disposition home or self-care (01) ==
LOC: POLAB3 09:06
PROVIDERS: PCP Family Medicine Geriatric Medicine; Visit Provider Family Medicine Geriatric Medicine
DX: E11.9 Type 2 diabetes mellitus without complications (principal); E55.9 Vitamin D deficiency, unspecified; I10 Essential (primary) hypertension
CPT/HCPCS: 36415; 80053; 82306; 84443; 85025

== ENCOUNTER → 2022-10-15 | Outpatient (CLI) | payer MEDICARE, BC, SELFPAY ==
[2022-10-15 14:01] LABS: Vitamin D,25 Hydroxy 38.2 ng/mL
[2022-10-15 14:03] LABS: Absolute Lymphocyte Count 1.66 X10^3/uL (0.83-4.51); Absolute Neutrophil Count 5.6 X10^3/uL (2.0-7.7); Basophil# 0.04 X10^3/uL; Basophil% 0.5 % (0-1); Eosinophil# 0.21 X10^3/uL; Eosinophils% 2.6 % (0-5); Hemoglobin 12.6 g/dL (12.0-15.0); Lymphocyte # 1.66 X10^3/ul (0.83-4.51); Lymphocyte % 20.4 % (19-41); Mean Corp Hgb Conc 30.7 g/dL (32-36); Mean Corpuscular Hgb 27.4 pg (27.0-32.0); Mean Corpuscular Volume 89.1 fL (81-99); Mean Platelet Vol. 11.5 fl (6.2-12.0); Monocyte# 0.59 X10^3/uL; Monocyte% 7.2 % (0-10); NRBC Flagged by Analyzer 0 % (0-5); Neutrophil # 5.63 X10^3/uL (2.7-7.7); Neutrophil % 69.1 % (47-70); Platelet Count 313 K/mm3 (150-450); RBC Distribution Width CV 15.1 % (11.6-14.6); RBC Distribution Width SD 49.6 fl (35.1-43.9); White Blood Count 8.2 K/mm3 (4.4-11.0)
[2022-10-15 14:09] LABS: ALB/GLOB Ratio 0.9 RATIO (0.9-2.4); AST(SGOT) 22 U/L (15-37); Alanine Aminotransfer ALT/SGPT 24 U/L (13-56); Albumin, Serum 3.4 g/dL (3.2-5.0); Alkaline Phosphatase 82 U/L (45-117); BUN 11 mg/dL (7-18); BUN/Creat Ratio 17.6 RATIO (10-20); Calcium,Total 9.4 mg/dL (8.5-10.1); Chloride 103 mmol/L (98-107); Creatinine, Serum 0.62 mg/dL (0.55-1.02); EST Glomerular Filtration Rate 99 mL/min (>60); Est Glom Filt Rate - Afr Amer 119 mL/min (>60); Globulin 3.7 g/dL (2.2-4.2); Glucose 97 mg/dL (74-106); Potassium 4.9 mmol/L (3.5-5.1); Protein, Total 7.1 g/dL (6.4-8.2); Sodium Level 138 mmol/L (136-145)
[2022-10-15 14:10] LABS: Anion Gap 7 (5-15); Thyroid Stim Hormone (TSH) 1.94 uIU/mL (0.358-3.74)
== END | disposition home or self-care (01) ==
LOC: POLAB3 11:45
PROVIDERS: PCP Family Medicine Geriatric Medicine; Visit Provider Family Medicine Geriatric Medicine
DX: I10 Essential (primary) hypertension (principal); E55.9 Vitamin D deficiency, unspecified
CPT/HCPCS: 36415; 80053; 82306; 84443; 85025

== ENCOUNTER → 2022-11-06 | Outpatient (CLI) | payer MEDICARE, BC, SELFPAY ==
--- NOTE | 2022-11-06 12:22 | RAD_ITS ---
STUDY: X-RAY CHEST REASON FOR EXAM: Female, 77 years old. Amiodarone TECHNIQUE: Single frontal view of the chest. COMPARISON: January 06, 2022 FINDINGS: Lungs are hyperaerated. The lungs are clear and expanded. There is no demonstrated pleural abnormality. Probable cardiomegaly. Normal mediastinum and abi. Normal visualized pulmonary arteries. Normal visualized aortic arch and descending thoracic aorta. Compression fracture midthoracic spine unchanged. Normal visualized ribs, clavicles, and shoulders. There is no demonstrated abnormality of the visualized soft tissue structures of the upper abdomen. RAD/Chest PA and Lateral IMPRESSION: COPD. Probable cardiomegaly. Compression fracture unchanged. No acute disease. Electronically Signed: Beny Coats MD at 16:46 EST ,
== END | disposition home or self-care (01) ==
LOC: RAD 12:22
PROVIDERS: PCP Family Medicine Geriatric Medicine; Visit Provider Nurse Practitioner Gerontology
DX: J44.9 Chronic obstructive pulmonary disease, unspecified (principal); Z79.899 Other long term (current) drug therapy
CPT/HCPCS: 71046

== ENCOUNTER → 2023-01-01 | Outpatient (CLI) | payer MEDICARE, BC, SELFPAY ==
--- NOTE | 2023-01-01 12:40 | PFT ---
INTRODUCTION: The patient is a 77-year-old female who presents for pulmonary function studies secondary to a diagnosis of amiodarone therapy. Respiratory therapy reported good patient effort. Bronchodilators were used during testing. INTERPRETATION: Forced expiration spirometry demonstrates the presence of a severe large airways obstructive ventilatory defect. There was no significant response to aerosolized bronchodilators. Spirograms are of fair quality but do not plateau indicating slow emptying of the lungs. Body plethysmography was performed and revealed a decreased TLC to 3.14 L, 69% of predicted, indicative of a moderate restrictive ventilatory impairment. Diffusing capacity by single breath CO is reduced at 36% of predicted. IMPRESSION: Irreversible severe mixed ventilatory defect with reduction in diffusing capacity.
== END | disposition home or self-care (01) ==
LOC: PSN 09:58
PROVIDERS: PCP Family Medicine Geriatric Medicine; Referring Provider Nurse Practitioner Gerontology; Visit Provider Nurse Practitioner Gerontology
DX: Z79.899 Other long term (current) drug therapy (principal)
CPT/HCPCS: 94010; 94060; 94729

== ENCOUNTER → 2023-01-07 | Outpatient (CLI) | payer MEDICARE, BC, SELFPAY ==
[2023-01-07 13:01] LABS: Absolute Lymphocyte Count 2.07 X10^3/uL (0.83-4.51); Absolute Neutrophil Count 7.7 X10^3/uL (2.0-7.7); Basophil# 0.05 X10^3/uL; Basophil% 0.5 % (0-1); Eosinophil# 0.13 X10^3/uL; Eosinophils% 1.2 % (0-5); Hematocrit 44.4 % (37-47); Hemoglobin 13.8 g/dL (12.0-15.0); Lymphocyte # 2.07 X10^3/ul (0.83-4.51); Lymphocyte % 18.9 % (19-41); Mean Corp Hgb Conc 31.1 g/dL (32-36); Mean Corpuscular Hgb 27.6 pg (27.0-32.0); Mean Corpuscular Volume 88.8 fL (81-99); Mean Platelet Vol. 11.5 fl (6.2-12.0); Monocyte# 0.94 X10^3/uL; Monocyte% 8.6 % (0-10); NRBC Flagged by Analyzer 0 % (0-5); Neutrophil # 7.69 X10^3/uL (2.7-7.7); Neutrophil % 70.3 % (47-70); Platelet Count 384 K/mm3 (150-450); RBC Distribution Width CV 14.7 % (11.6-14.6); RBC Distribution Width SD 47.5 fl (35.1-43.9); White Blood Count 10.9 K/mm3 (4.4-11.0)
[2023-01-07 13:15] LABS: Vitamin D,25 Hydroxy 42.8 ng/mL
[2023-01-07 13:54] LABS: ALB/GLOB Ratio 0.8 RATIO (0.9-2.4); AST(SGOT) 26 U/L (15-37); Alanine Aminotransfer ALT/SGPT 29 U/L (13-56); Albumin, Serum 3.5 g/dL (3.2-5.0); Alkaline Phosphatase 103 U/L (45-117); Anion Gap 7 (5-15); BUN 15 mg/dL (7-18); BUN/Creat Ratio 19.3 RATIO (10-20); Calcium,Total 9.8 mg/dL (8.5-10.1); Chloride 101 mmol/L (98-107); Creatinine, Serum 0.78 mg/dL (0.55-1.02); EST Glomerular Filtration Rate 76 mL/min (>60); Est Glom Filt Rate - Afr Amer 92 mL/min (>60); Globulin 4.5 g/dL (2.2-4.2); Glucose 126 mg/dL (74-106); Sodium Level 136 mmol/L (136-145); Thyroid Stim Hormone (TSH) 1.68 uIU/mL (0.358-3.74)
== END | disposition home or self-care (01) ==
LOC: POLAB3 11:27
PROVIDERS: PCP Family Medicine Geriatric Medicine; Visit Provider Family Medicine Geriatric Medicine
DX: I10 Essential (primary) hypertension (principal); E55.9 Vitamin D deficiency, unspecified
CPT/HCPCS: 36415; 80053; 82306; 84443; 85025

== ENCOUNTER → 2023-01-16 | Outpatient (CLI) | payer MEDICARE, BC, SELFPAY ==
[2023-01-16 12:56] LABS: Anion Gap 6 (5-15); BUN 21 mg/dL (7-18); BUN/Creat Ratio 25.6 RATIO (10-20); Calcium,Total 9.7 mg/dL (8.5-10.1); Chloride 103 mmol/L (98-107); Creatinine, Serum 0.82 mg/dL (0.55-1.02); EST Glomerular Filtration Rate 72 mL/min (>60); Est Glom Filt Rate - Afr Amer 87 mL/min (>60); Glucose 120 mg/dL (74-106); Potassium 4.1 mmol/L (3.5-5.1); Sodium Level 137 mmol/L (136-145)
== END | disposition home or self-care (01) ==
LOC: POLAB3 11:11
PROVIDERS: PCP Family Medicine Geriatric Medicine; Visit Provider Family Medicine Geriatric Medicine
DX: E87.6 Hypokalemia (principal)
CPT/HCPCS: 36415; 80048

== ENCOUNTER → 2023-02-05 | Outpatient (CLI) | payer MEDICARE, BC, SELFPAY ==
[2023-02-05 16:11] LABS: Absolute Neutrophil Count 6.2 X10^3/uL (2.0-7.7); Basophil# 0.05 X10^3/uL; Basophil% 0.6 % (0-1); Eosinophil# 0.11 X10^3/uL; Eosinophils% 1.3 % (0-5); Hematocrit 38.1 % (37-47); Hemoglobin 12.2 g/dL (12.0-15.0); Lymphocyte % 19.4 % (19-41); Mean Corpuscular Hgb 28.4 pg (27.0-32.0); Mean Corpuscular Volume 88.6 fL (81-99); Mean Platelet Vol. 11.4 fl (6.2-12.0); NRBC Flagged by Analyzer 0 % (0-5); Neutrophil # 6.18 X10^3/uL (2.7-7.7); Neutrophil % 70.5 % (47-70); Platelet Count 327 K/mm3 (150-450); RBC Distribution Width CV 15.7 % (11.6-14.6); RBC Distribution Width SD 50.8 fl (35.1-43.9); White Blood Count 8.8 K/mm3 (4.4-11.0)
[2023-02-05 16:17] LABS: Anion Gap 5 (5-15); BUN 17 mg/dL (7-18); BUN/Creat Ratio 27.5 RATIO (10-20); Calcium,Total 9.3 mg/dL (8.5-10.1); Chloride 104 mmol/L (98-107); Creatinine, Serum 0.62 mg/dL (0.55-1.02); EST Glomerular Filtration Rate 100 mL/min (>60); Est Glom Filt Rate - Afr Amer 121 mL/min (>60); Glucose 92 mg/dL (74-106); Potassium 4.1 mmol/L (3.5-5.1); Sodium Level 139 mmol/L (136-145)
== END | disposition home or self-care (01) ==
LOC: POLAB3 14:35
PROVIDERS: PCP Family Medicine Geriatric Medicine; Visit Provider Family Medicine Geriatric Medicine
DX: R29.898 Other symptoms and signs involving the musculoskeletal system (principal)
CPT/HCPCS: 36415; 80048; 85025

== ENCOUNTER → 2023-02-11 | Outpatient (CLI) | payer MEDICARE, BC, SELFPAY ==
[2023-02-11 17:06] LABS: Microalbumin,Random Urine 5.5 mg/L (NO RANGE EST.); Microalbumin:Creatinine Ratio 8.8 mg/g CRE (<30 mg/g CRE)
== END | disposition home or self-care (01) ==
LOC: POLAB3 15:46
PROVIDERS: PCP Family Medicine Geriatric Medicine; Visit Provider Family Medicine Geriatric Medicine
DX: I10 Essential (primary) hypertension (principal)
CPT/HCPCS: 82043; 82570

== ENCOUNTER → 2023-03-05 | Outpatient (CLI) | payer MEDICARE, BC, SELFPAY ==
[2023-03-05 14:23] LABS: Anion Gap 6 (5-15); BUN 16 mg/dL (7-18); BUN/Creat Ratio 22.2 RATIO (10-20); Calcium,Total 9.4 mg/dL (8.5-10.1); Chloride 101 mmol/L (98-107); Creatinine, Serum 0.72 mg/dL (0.55-1.02); EST Glomerular Filtration Rate 83 mL/min (>60); Est Glom Filt Rate - Afr Amer 101 mL/min (>60); Glucose 127 mg/dL (74-106); Potassium 4.1 mmol/L (3.5-5.1); Sodium Level 140 mmol/L (136-145)
== END | disposition home or self-care (01) ==
LOC: LAB 12:18
PROVIDERS: PCP Family Medicine Geriatric Medicine; Referring Provider Family Medicine Geriatric Medicine; Visit Provider Family Medicine Geriatric Medicine
DX: E87.6 Hypokalemia (principal)
CPT/HCPCS: 36415; 80048

== ENCOUNTER 2023-03-12 10:23 | Emergency (ER) | payer MEDICARE, BC, SELFPAY ==
[2023-03-12 10:25] VITALS: BP 143/64; PULSE 60; RESP 16; TEMP 36.4; O2SAT 96; BMI 34.7
--- NOTE | 2023-03-12 10:32 | CT_ITS ---
STUDY: CT BRAIN WITHOUT CONTRAST REASON FOR EXAM: Female, 77 years old. Head trauma on anticoagulant RADIATION DOSAGE (If Supplied By Facility): CTDIvol = ( 44.99 ) mGy, DLP = ( 745.49 ) mGycm TECHNIQUE: Transaxial CT imaging of the brain was performed without administration of intravenous contrast material. Individualized dose optimization techniques were used for this CT. COMPARISON: No relevant priors. FINDINGS: Small scalp hematoma overlying the posterior right occipital bone. There is hyperostosis frontalis internus. There is mild cerebral atrophy with widening of the extra-axial spaces and ventricular dilatation. Normal white matter tracts of the cerebral hemispheres. Normal basal ganglia and thalami. Normal brainstem. Normal cerebellum. There is no intracranial hemorrhage. There are no findings of an acute ischemic infarction. 1 cm mucosal polyp in the inferior aspect of the left maxillary sinus. CT/Brain/Head without Contrast IMPRESSION: Chronic involutional changes of the brain. Small scalp hematoma overlying the posterior aspect of the right occipital bone. Electronically Signed: Efrain Rawls MD at 11:44 EDT ,
--- NOTE | 2023-03-12 10:36 | ED.VIS.FALL ---
HPI HPI - Fall History of Present Illness Chief Complaint: Fall Detail of Chief Complaint: Fell backwards striking the back of her head Informant: patient and family Occured/Mechanism Occurred: Hours Mechanism/Context: Yes same level fall and Yes slip Narrative: Being up when she lost her balance and fell backwards striking her head Usually ambulates: Without assistance Pain/Injury Pain Location: head Quality of Pain: Dull Current Severity: Mild Maximum Severity: Mild Worsened by: Nothing Relieved by: Nothing Associated Symptoms Associated Symptoms: Negative for Parasthesias, Weakness, Loss of function, Inability to ambulate, Loss of consciousness or Amnesia Narrative Narrative: Patient is a 77-year-old woman who is on Eliquis due to A-fib several years ago after cholecystectomy. There is no history of PE or DVT. She does complain of head pain. She denies headache. Eyes double vision, blurred vision or visual cut. She denies ringing or ears or decreased hearing. She has trouble with speech or swallowing. She denies neck pain. She denies paresthesia, anesthesia or motor weakness presently at time of the impact. She denies problems with coordination or balance. She denies cardiac or respiratory symptoms. She denies nausea or Tetanus Immunization: 5-10 years Prior similar symptoms: No Recent Illness/Hospitalization: No [facility] Medical History Acute pyelonephritis Atrial fibrillation with rapid ventricular response (08/11/17) Atrial flutter with rapid ventricular response (08/06/21) Erythematous bladder mucosa Essential hypertension History of skin cancer HLD (hyperlipidemia) Long-term use of high-risk medication Near syncope Postoperative atrial fibrillation (08/11/17) Skin lesion of breast Skin lesion of face Home Medications tizanidine 4 mg tablet 4 mg PO BID PRN Spasms 08/08/17 [History Last Taken 08/07/17 17:00 2 mg] losartan 100 mg tablet 100 mg PO DAILY 09/12/21 [History Last Taken Unknown] acetaminophen 500 mg oral powder packet (Tylenol Extra Strength) 500 mg PO Q6H PRN 09/13/21 [History Last Taken Unknown] apixaban 5 mg tablet 5 mg PO BID 09/13/21 [History Last Taken Unknown] cholecalciferol (vitamin D3) 125 mcg (5,000 unit) capsule 125 mcg PO DAILY 12/12/21 [History Last Taken Unknown] mecobalamin (vitamin B12) 5,000 mcg lozenge 5,000 mcg PO DAILY 12/12/21 [History Last Taken Unknown] clonazepam 1 mg tablet 1 mg PO .QID PRN 02/03/22 [History Last Taken Unknown] metoprolol succinate 25 mg tablet,extended release 24 hr 25 mg PO DAILY This is a decreased dose #90 tabs 04/17/22 [Rx Last Taken Unknown] amlodipine 5 mg tablet 5 mg PO DAILY #90 tabs 05/13/22 [Rx Last Taken Unknown] hydrochlorothiazide 25 mg tablet 25 mg PO DAILY #90 tabs 05/13/22 [Rx Last Taken Unknown] potassium chloride 20 mEq tablet,extended release(part/cryst) 20 meq PO DAILY 05/13/22 [History Last Taken Unknown] amiodarone 200 mg tablet 100 mg PO DAILY #90 tabs 11/06/22 [Rx Last Taken Unknown] doxepin 100 mg capsule 100 mg PO QHS 11/06/22 [History Last Taken Unknown] azithromycin 250 mg tablet See Rx Instructions PO .COMPLEX #6 tabs 11/14/22 [Rx Last Taken Unknown] benzonatate 100 mg capsule 200 mg PO TID PRN cough #30 caps 11/14/22 [Rx Last Taken Unknown] melatonin 3 mg capsule 3 mg PO HS 11/14/22 [History Last Taken Unknown] Allergy/AdvReac Type Severity Reaction Status Date / Time codeine Allergy Rash Verified 03/12/23 10:25 Penicillins [PCN] Allergy Rash Verified 03/12/23 10:25 Family History Mother Atrial fibrillation Diabetes Heart disease Parkinson disease Father Atrial fibrillation CVA (cerebral vascular accident) Diabetes Heart disease Cancer lung cancer with mets to spine Brother CVA (cerebral vascular accident) Cancer bladder cancer Brother Cancer lung cancer Surgical History History of laparoscopic cholecystectomy History of right breast biopsy history removal bladder tumors Social History Smoking Status: Never smoker alcohol intake: never substance use type: does not use ROS ROS ED Constitutional Constitutional ED: Denies chills, fever(s), subjective or sweats Eyes Eyes: Denies blurry vision, change in vision or diplopia ENT ENT ED: Denies ear pain, rhinorrhea or sore throat Cardiovascular Cardiovascular: Denies chest pain, palpitations or racing heartbeat Respiratory/Chest Respiratory/Chest: Denies cough, dyspnea or dyspnea on exertion Gastrointestinal Gastrointestinal: Denies abdominal pain, nausea or vomiting Genitourinary Genitourinary ED: Denies dysuria or hematuria Musculoskeletal Musculoskeletal: Denies arthralgias, back pain, myalgias or neck pain Integumentary Denies Abrasions or rash Neurologic Neurologic: Reports other Details: Further detailed HPI narrative ; Denies headache(s), paresthesias or weakness Psychiatric Psychiatric: Reports anxiety Hematologic/Lymphatic Hematologic/Lymphatic: Denies easy bleeding or easy bruising EXAM Physical Exam Const Vital Signs: 03/12/23 10:25 03/12/23 11:08 Temperature 97.6 F L Temperature Source Temporal Pulse Rate 60 Respiratory Rate 16 Blood Pressure 143/64 H 127/87 H Blood Pressure Mean 90 100 Pulse Ox 96 Oxygen Delivery Method Room Air Positive well nourished, well developed and obese General Appearance ED: well developed and NAD Nutritional Appearance: obese HEENT Reports normocephalic HEENT Narrative: Subcutaneous hematoma noted right parietal occipital region. There is no palpable depression. There is no clinical findings of basilar skull fracture. There is no septal deviation hematoma noted. trauma Eyes PERRL and EOMs intact bilaterally Eyes Narrative: There is no conjunctival hemorrhage. There is no nystagmus. General Eye ED: Negative for pale conjunctiva or scleral icterus Neck full ROM, no lymphadenopathy and supple Neck Narrative: There is no posterior midline palpation. There is full active range of without grimacing or hesitation. Resp normal respiratory effort, no retractions and clear to auscultation bilaterally Cardio regular rate, regular rhythm, S1 normal heart sound, S2 normal heart sound and no murmurs GI non-tender, non-distended and no masses Inspection: abdominal distention Palpation: soft Extremity Extremity Narrative: There is no acrocyanosis, edema or deformity. Neuro oriented x3, CN's II-XII intact bilaterally, moves all extremities, no focal motor deficits and no sensory deficits noted Neuro Narrative: There is no clonus or Babinski sign noted. The metria. Gal Coma Scale: document GCS findings Spontaneous Obeys Commands Oriented 15 Sensorium / Orientation: alert Motor Exam: strength 5/5 throughout Psych mental status grossly normal and thought process normal Skin Skin Narrative: Subcutaneous hematoma previously but otherwise negative MDM MDM MDM Narrative Medical decision making narrative: With history of head trauma on Eliquis CT of the head was obtained to assess for subdural hematoma/traumatic subarachnoid hemorrhage, epidural hematoma and intraparenchymal contusion. Imaging of the C-spine is not indicated per Nexus criteria. Radiography Diagnostic Testing: Clinical Impression(s) from Imaging Studies Brain CT 03/12/23 10:32 IMPRESSION: Chronic involutional changes of the brain. Small scalp hematoma overlying the posterior aspect of the right occipital bone. Electronically Signed: Efrain Rawls MD at 11:44 EDT , CT of the head without contrast reveals no evidence of epidural, subdural hematoma, traumatic subarachnoid hemorrhage or intraparenchymal bleed. Awaiting formal read by radiologist, 1133 Treatment and Re-Evaluation Narrative: There is no disagreement and CAT scan reading therefore will discharge to home Discharge Plan Triage Chief Complaint: Fall Other Complaint: Head Injury ED Provider: Neville Rogers Dx/Rx/DC Orders Clinical Impression: Hematoma of occipital region of scalp, Essential hypertension, HLD (hyperlipidemia), Postoperative atrial fibrillation, CHI (closed head injury), Anticoagulant long-term use Instructions: Concussion Dc Prescriptions: No Action losartan 100 mg tablet 100 mg PO DAILY Eliquis 5 mg tablet 5 mg PO BID Tylenol Extra Strength 500 mg powder in packet 500 mg PO Q6H PRN clonazepam 1 mg tablet 1 mg PO .QID PRN potassium chloride 20 mEq tablet,ER particles/crystals 20 meq PO DAILY Label Comments: TAKE 1 TABLET BY MOUTHCONCE DAILY amlodipine 5 mg tablet 5 mg PO DAILY Qty: 90 3RF hydrochlorothiazide 25 mg tablet 25 mg PO DAILY Qty: 90 3RF mecobalamin (vitamin B12) 5,000 mcg lozenge 5,000 mcg PO DAILY Rx Instructions: allow to dissolve in mouth OR may chew lightly before swallowing cholecalciferol (vitamin D3) 125 mcg (5,000 unit) capsule 125 mcg PO DAILY doxepin 100 mg capsule 100 mg PO QHS amiodarone 200 mg tablet 100 mg PO DAILY Qty: 90 3RF melatonin 3 mg capsule 3 mg PO HS azithromycin 250 mg tablet See Rx Instructions PO .COMPLEX Qty: 6 0RF Rx Instructions: take 500 mg today (day 1), then 250 mg for 4 days (days 2-5) PO benzonatate 100 mg capsule 200 mg PO TID PRN (Reason: cough) Qty: 30 0RF tizanidine 4 MG tablet 4 mg PO BID PRN (Reason: Spasms) metoprolol succinate 25 mg tablet extended release 24 hr 25 mg PO DAILY Qty: 90 3RF Primary Care Provider: Jaya Jung Chi Referrals: Jaya Jung Chi, MD [Primary Care Provider] - As Needed Activity Restrictions/Additional Instructions: 1. Hold your Eliquis for 2 days, 4 doses 2. If you develop a severe headache, nausea vomiting or any concerns return to the emergency department immediately Disposition Disposition: Home, Self Care
[2023-03-12 11:08] VITALS: BP 127/87
== END 2023-03-12 12:23 | disposition home or self-care (01) ==
PROVIDERS: Emergency Provider Emergency Medicine; PCP Family Medicine Geriatric Medicine; Visit Provider Emergency Medicine
DX: S00.03XA Contusion of scalp, initial encounter (principal); I48.91 Unspecified atrial fibrillation; S09.90XA Unspecified injury of head, initial encounter; I10 Essential (primary) hypertension; E78.5 Hyperlipidemia, unspecified; E66.9 Obesity, unspecified; Z79.01 Long term (current) use of anticoagulants; W18.30XA Fall on same level, unspecified, initial encounter
CPT/HCPCS: 70450; 99285

== ENCOUNTER 2023-07-01 14:30 | Outpatient (RCR) | payer MEDICARE, BC, SELFPAY ==
--- NOTE | 2023-03-18 10:33 | HP.PTEVAL_ITS ---
Patient's Visit Information ITZ VEGAS is a 77 year old F referred to Physical Therapy by Dr. Jaya Jung MD with a diagnosis of LE weakness. Date of Evaluation: 03/18/23 Physical Therapist: Sukumar Chaves PT, ATC - Visit Plan Frequency: 2-3x /Week Duration: 4-6 Weeks Plan: B LE strengthening, balance and proprio, gait training, stair negotiation, nustep, and HEP - Subjective Pt reports she fell one week ago while entering her neighbors house. Pt reports she is not sure what happened, but reports she fell backwards and hit her head. Pt notes she went to the ER and had a CT scan. Pt reports she is very sore today on the R side of her body. Pt reports she had a goose egg on her head, but never had a CASSIDY or lost consciousness. Pt reports this is the 3rd fall of this year for her. Pt reports she has been feeling weaker and noticing a decline in her balance. Pt reports she lives at home by herself. Pt notes she is suffering from feeling depressed secondary to having an ailing in the [place] [facility]. Pt reports she has good sensation in her feet and can feel them hit the ground. Pt reports she will feel a little light headed when transferring from sit to stand, but is aware she needs to stay still at that time and doesn't move until feeling normal. Pt reports no LE pain this date. Pt reports her R side pain is 5/10 - Pain R side pain Pain Intensity (Out of 10): 5 Pain Intensity Range: 5 - Objective Neuro: B LE sensation is WNL to light touch. B patellar reflex 1/3. ROM: B LE ROM is WFL when compared bilaterally. MMT: B hip flex, abd, and add are grossly 4/5 throughout. B knee flex and ext are grossly 4-/5 throughout. FGA: 30. Moderate risk of falling - Balance/Special Test Scores Functional Gait Assessment Score: 17 % Disability: 43.3400 Lower Extremity Functional Score: 9 - Goals Goal 1:: Increase B LE strength x 1 grade to aid with stair negotiation Goal Time Frame: 4-6 Weeks Goal 2:: Increase FGA x 5 points to aid with preventing future falls Goal Time Frame: 4-6 Weeks Goal 3:: I with HEP Goal Time Frame: 4-6 Weeks - Rehabilitation Potential Physical Therapy Diagnosis: Pt has B LE weakness, unsteady gait, and a Hx of falls secondary to debility Rehabilitation Potential: Good - Anticipated Interventions Patient/Client Instruction: Educate patient on: Condition, Plan of Care For the Purpose of:: To improve self management Therapeutic Exercise to Include: Strength training, Endurance training, Balance training, Gait and locomotor training, Dynamic Lumbar Stabilization For the Purpose of:: To improve muscle performance and motor function, To increase tolerance to activity/condition/position, To improve balance Thank you for the opportunity to evaluate your patient. For Medicare and Medicare HMO plans, please review the plan of care and approve it. It will need to be FAXED BACK to us at [phone] for Medicare purposes. For Medicare only, by signing this I certify the plan of care. Please let me know if there are questions or concerns regarding this plan of care. Physician Signature: Date:
--- NOTE | 2023-05-29 13:09 | HP.PTREVAL ---
Re-Evaluation Intro: Dr. Jaya Jung MD, It has been my pleasure to treat ITZ VEGAS over the last 16 visits for LE weakness. Please see the progress note below for an update on the physical therapy plan of care! Subjective Subjective: Pt reports she still feels unsteady and is afraid to walk by herself. Objective Objective/Function: Major focus on balance. Pt. showed high motivation and positive response to functional balance exs. performed during today's txs. MMT: B hip flex and knee flex= 4-/5. All other measurements 4+/5 throughout FGA: - improving, but still a moderate risk of falling Pt is showing improvements, but still displays gross LE weakness and instability with gait Plan Plan Plan: Cont with B LE strengthening, balance and proprio, gait training, stair negotiation, nustep, and HEP Balance/Gait/Functional tests Balance/Special Test Scores Functional Gait Assessment Score: 18 % Disability: 40.0000 Lower Extremity Functional Score: 35 Goals Goals Goal 1:: Increase B LE strength x 1 grade to aid with stair negotiation Goal Time Frame: 4-6 Weeks Goal Progress: Progressing Goal 2:: Increase FGA x 5 points to aid with preventing future falls Goal Time Frame: 4-6 Weeks Goal Progress: Progressing Goal 3:: I with HEP Goal Time Frame: 4-6 Weeks Goal Progress: Progressing Anticipated Interventions Anticipated Interventions Patient/Client Instruction: Educate patient on: Condition and Plan of Care For the Purpose of:: To improve self management Therapeutic Exercise to Include: Strength training, Endurance training, Balance training, Gait and locomotor training and Dynamic Lumbar Stabilization For the Purpose of:: To improve muscle performance and motor function, To increase tolerance to activity/condition/position and To improve balance Re-Evaluation Ending Re-evaluation ending: Please do not hesitate to contact me at [phone] by phone or if you have questions or concerns regarding this new plan of care! Sincerely, Sukumar Chaves, PT, ATC
--- NOTE | 2023-07-01 16:42 | HP.PTDCSUM_ITS ---
Discharge Summary D/C summary: It has been my pleasure to treat ITZ VEGAS referred by Dr. Jaya Jung MD, with the diagnosis of LE weakness for a total of 23 visit(s). Discharge Date: Please see the following information for a summary of their discharge status. Subjective Subjective: Pt. reports having no pain today and no issues with balance. Pt. feels like she does not need continued rx and is able to continue HEP and exs. in the [facility] center. Pain R side pain: Pain Intensity (Out of 10): 0 Overall Improvement % Improvement: 85 Objective Objective/Function: Pt. demonstrated a MMT of B Knee flexion, extension, hip flexion, hip abduction and hip adduction = 5/5 Pt. demonstrated an FGA score of 25 which is .1 above her age based normal scores and 8 points above her FGA score at time of initial evaluation. Pt. demonstrated a LEFS of 46 which is 35 points higher than her initial eval uation. Pt. is I with HEP. Goals Goal 1:: Increase B LE strength x 1 grade to aid with stair negotiation Goal Progress: Goal Met Goal 2:: Increase FGA x 5 points to aid with preventing future falls Goal Progress: Goal Met Goal 3:: I with HEP Goal Progress: Goal Met Plan Plan: d/c at patient request to gym based program which she has and feels comfortable with. D/C Information d/c sentence: If there are questions or concerns regarding this patient's physical therapy, please feel free to call me at [phone]. Thank you for the referral of this patient. Sincerely, Mio Rodriguez, DPT, OCS, CSCS Balance/Gait/Functional tests Balance/Special Test Scores Functional Gait Assessment Score: 25 % Disability: 16.6700 Lower Extremity Functional Score: 46 Improvement % Improvement: 85
--- NOTE | 2023-07-02 09:40 | HP.PTDCSUM ---
Discharge Summary D/C summary: It has been my pleasure to treat ITZ VEGAS referred by Dr. Jaya Jung MD, with the diagnosis of LE weakness for a total of 23 visit(s). Discharge Date: 07/02/23 Please see the following information for a summary of their discharge status. Subjective Subjective: Pt. reports having no pain today and no issues with balance. Pt. feels like she does not need continued rx and is able to continue HEP and exs. in the wellness center. Pain R side pain: Pain Intensity (Out of 10): 0 Overall Improvement % Improvement: 85 Objective Objective/Function: Pt. demonstrated a MMT of B Knee flexion, extension, hip flexion, hip abduction and hip adduction = 5/5 Pt. demonstrated an FGA score of 25 which is .1 above her age based normal scores and 8 points above her FGA score at time of initial evaluation. Pt. demonstrated a LEFS of 46 which is 35 points higher than her initial evaluation. Pt. is I with HEP. Goals Goal 1:: Increase B LE strength x 1 grade to aid with stair negotiation Goal Progress: Goal Met Goal 2:: Increase FGA x 5 points to aid with preventing future falls Goal Progress: Goal Met Goal 3:: I with HEP Goal Progress: Goal Met Plan Plan: d/c at patient request to gym based program which she has and feels comfortable with. D/C Information Discharge Comments: Pt will continue on her own in the gym. d/c sentence: If there are questions or concerns regarding this patient's physical therapy, please feel free to call me at [phone]. Thank you for the referral of this patient. Sincerely, Mio Rodriguez, DPT, OCS, CSCS Balance/Gait/Functional tests Balance/Special Test Scores Functional Gait Assessment Score: 25 % Disability: 16.6700 Lower Extremity Functional Score: 46 Improvement % Improvement: 85
== END 2023-07-01 19:00 | disposition home or self-care (01) ==
LOC: PT 14:30
PROVIDERS: PCP Family Medicine Geriatric Medicine; Referring Provider Family Medicine Geriatric Medicine; Visit Provider Family Medicine Geriatric Medicine
DX: R29.898 Other symptoms and signs involving the musculoskeletal system (principal)
CPT/HCPCS: 97110; 97161; 97164

== ENCOUNTER → 2023-07-02 | Outpatient (CLI) | payer MEDICARE, BC, SELFPAY ==
[2023-07-02 11:29] LABS: Absolute Lymphocyte Count 2.17 X10^3/uL (0.83-4.51); Absolute Neutrophil Count 5.3 X10^3/uL (2.0-7.7); Basophil# 0.07 X10^3/uL; Basophil% 0.8 % (0-1); Eosinophil# 0.18 X10^3/uL; Eosinophils% 2.1 % (0-5); Hematocrit 41.4 % (37-47); Hemoglobin 12.6 g/dL (12.0-15.0); Lymphocyte # 2.17 X10^3/ul (0.83-4.51); Lymphocyte % 25.6 % (19-41); Mean Corp Hgb Conc 30.4 g/dL (32-36); Mean Corpuscular Hgb 27.8 pg (27.0-32.0); Mean Corpuscular Volume 91.4 fL (81-99); Mean Platelet Vol. 11.4 fl (6.2-12.0); Monocyte# 0.73 X10^3/uL; Monocyte% 8.6 % (0-10); NRBC Flagged by Analyzer 0 % (0-5); Neutrophil # 5.29 X10^3/uL (2.7-7.7); Neutrophil % 62.5 % (47-70); Platelet Count 328 K/mm3 (150-450); RBC Distribution Width CV 14.5 % (11.6-14.6); RBC Distribution Width SD 48.6 fl (35.1-43.9); Red Blood Count 4.53 M/mm3 (4.2-5.4); White Blood Count 8.5 K/mm3 (4.4-11.0)
[2023-07-02 11:55] LABS: ALB/GLOB Ratio 0.9 RATIO (0.9-2.4); AST(SGOT) 21 U/L (15-37); Alanine Aminotransfer ALT/SGPT 22 U/L (13-56); Albumin, Serum 3.5 g/dL (3.2-5.0); Alkaline Phosphatase 82 U/L (45-117); Anion Gap 3 (5-15); BUN 19 mg/dL (7-18); BUN/Creat Ratio 26.7 RATIO (10-20); Calcium,Total 9.6 mg/dL (8.5-10.1); Chloride 103 mmol/L (98-107); Creatinine, Serum 0.71 mg/dL (0.55-1.02); EST Glomerular Filtration Rate 85 mL/min (>60); Est Glom Filt Rate - Afr Amer 102 mL/min (>60); Globulin 3.7 g/dL (2.2-4.2); Glucose 96 mg/dL (74-106); Potassium 4.7 mmol/L (3.5-5.1); Protein, Total 7.2 g/dL (6.4-8.2); Sodium Level 137 mmol/L (136-145); Thyroid Stim Hormone (TSH) 1.52 uIU/mL (0.358-3.74)
== END | disposition home or self-care (01) ==
LOC: POLAB3 10:34
PROVIDERS: PCP Family Medicine Geriatric Medicine; Visit Provider Family Medicine Geriatric Medicine
DX: I10 Essential (primary) hypertension (principal); E55.9 Vitamin D deficiency, unspecified
CPT/HCPCS: 36415; 80053; 82306; 84443; 85025

== ENCOUNTER → 2023-10-08 | Outpatient (CLI) | payer MEDICARE, BC, SELFPAY ==
--- OUTSIDE RECORDS SUMMARY | 2023-10-08 11:24 | XMS RPT_ITS | CCD ---
Author Name Unknown Address [address] [facility] [address] [place] [address] Organization [facility] Care Team Providers Care Sales Support Assistant Name Role Phone DILCIA FAROOQ Unavailable Unavailable BIBIANA TRINH, DR NICOLE Primary Care Physician BENNY SMITH MD Attending Unavailable BIBIANA TRINH, DR NICOLE Primary Care Unavailable Allergies Allergy Classification Reported Allergen(s) Allergy Type Date of Onset Reaction(s) Facility (1 source) acetaminophen / HYDROcodone; Translations: [HYDROCODONE-ACET AMINOPHEN] Drug Allergy [facility] (3 sources) codeine; Translations: [CODEINE] Drug Allergy [facility] (1 source) Penicillins; Translations: [PENICILLINS] Propensity to adverse reactions to drug (disorder) [facility] (1 source) Penicillin; Translations: [penicillin] Drug Allergy [facility] (1 source) penicillin G benzathine / penicillin G procaine; Translations: [benzathine penicillin-procai ne penicillin] Drug Allergy Unknown [address] Urology Medications Current Medications Medication Drug Class(es) Dates Sig (Normalized) Sig (Original) amiodarone hydrochloride 200 mg oral tablet (1 source) Antiarrhythmic Start: 2 amiodarone 200 mg oral tablet 0 Refill(s) Start Date: 05/21/22 Status: Ordered amLODIPine 2.5 mg oral tablet (1 source) Dihydropyridine Calcium Channel Penny Start: 0 amLODIPine 2.5 mg oral tablet Dose : 2.5 mg = 1 tab(s), Oral, qHS, # 30 tab(s), 0 Refill(s) Start Date: 08/30/20 Status: Ordered apixaban 5 mg oral tablet (1 source) Factor Xa Inhibitor Start: 2 Eliquis 5 mg oral tablet 0 Refill(s), 94.4 Start Date: 05/21/22 Status: Ordered aspirin 81 mg delayed release oral tablet (1 source) Platelet Aggregation Inhibitor, Nonsteroidal Anti-inflammatory Drug Start: 1 aspirin 81 mg oral delayed release tablet Dose : 81 mg = 1 tab(s), Oral, Daily, 0 Refill(s) Start Date: 01/02/21 Status: Ordered atorvastatin 40 mg oral tablet (1 source) HMG-CoA Reductase Inhibitor Start: 0 atorvastatin 40 mg oral tablet Dose : 40 mg = 1 tab(s), Oral, qHS, # 30 tab(s), 0 Refill(s) Start Date: 08/30/20 Status: Ordered busPIRone hydrochloride 10 mg oral tablet (1 source) Start: 0 busPIRone 10 mg oral tablet Dose : 10 mg = 1 tab(s), Oral, QID, # 90 tab(s), 0 Refill(s) Start Date: 08/30/20 Status: Ordered escitalopram 20 mg oral tablet (1 source) Serotonin Reuptake Inhibitor Start: 1 Lexapro 20 mg oral tablet Dose : 20 mg = 1 tab(s), Oral, qDay, # 30 tab(s), 0 Refill(s) Start Date: 01/02/21 Status: Ordered hydroCHLOROthiazide 12.5 mg / losartan potassium 100 mg oral tablet (1 source) Thiazide Diuretic, Angiotensin 2 Receptor Penny Start: 1 hydrochlorothiaz mi-losartan 12.5-100 mg oral tablet 0 Refill(s) Start Date: 04/10/21 Status: Ordered losartan potassium 100 mg oral tablet (1 source) Angiotensin 2 Receptor Penny Start: 2 losartan 100 mg oral tablet 0 Refill(s) Start Date: 05/21/22 Status: Ordered 24 hr metoprolol succinate 50 mg extended release oral tablet (1 source) beta-Adrenergic Penny Start: 0 metoprolol succinate 50 mg oral TABLET extended release Dose : 50 mg = 1 tab(s), Oral, qAM, Do not crush or chew (controlled release), # 30 tab(s), 0 Refill(s) Start Date: 08/30/20 Status: Ordered potassium chloride 20 meq oral tablet (1 source) Start: 2 potassium chloride 20 mEq oral tablet, extended release 0 Refill(s) Start Date: 05/21/22 Status: Ordered tiZANidine 4 mg oral capsule (1 source) Central alpha-2 Adrenergic Agonist Start: 0 tiZANidine 4 mg oral capsule Dose : 4 mg = 1 cap(s), Oral, TID, PRN BACK SPASMS, # 90 cap(s), 0 Refill(s) Start Date: 08/30/20 Status: Ordered trimethoprim 100 mg oral tablet (1 source) Dihydrofolate Reductase Inhibitor Antibacterial Start: 1 trimethoprim 100 mg oral tablet Dose : 100 mg = 1 tab(s), Oral, q12h, # 6 tab(s), 0 Refill(s), Pharmacy: [place] [id number] [address] [facility], 160, cm, 04/10/21 8:36:00 EDT, Height, 94.4, kg, 04/10/21 8:36:00 EDT, Dosing Weight Start Date: 04/10/21 Status: Ordered 24 hr venlafaxine 75 mg extended release oral capsule (1 source) Serotonin and Norepinephrine Reuptake Inhibitor Start: 2 venlafaxine 75 mg oral capsule, extended release 0 Refill(s) Start Date: 05/21/22 Status: Ordered Vitamin B12 1000 mcg oral tablet (1 source) Start: 0 Vitamin B12 1000 mcg oral tablet Dose : 1,000 mcg = 1 tab(s), Oral, qDay, # 90 tab(s), 0 Refill(s) Start Date: 08/30/20 Status: Ordered Vitamin D3 1000 intl units (25 mcg) oral tablet, chewable (1 source) Start: 0 Vitamin D3 1000 intl units (25 mcg) oral tablet, chewable Dose : 1,000 International_Un it = 1 tab(s), Chewed, qDay, # 50 tab(s), 0 Refill(s) Start Date: 08/30/20 Status: Ordered Completed/Discontinued Medications Medication Drug Class(es) Dates Sig (Normalized) Sig (Original) clonazePAM 1 mg disintegrating oral tablet (1 source) Benzodiazepine Start: 08-30-2020 clonazepam 1 mg oral disint tablet Dose : 1 mg = 1 tab(s), Oral, QID, 0 Refill(s), 93.2 Start Date: 08/30/20 Status: Ordered zolpidem tartrate 10 mg oral tablet (1 source) gamma-Aminobutyric Acid-ergic Agonist Start: 08-30-2020 zolpidem 10 mg oral tablet Dose : 10 mg = 1 tab(s), Oral, qHS, PRN as needed for sleep, 0 Refill(s), 93.2 Start Date: 08/30/20 Status: Ordered Problems Problem Classification Problem Date Documented Date Episodic/Chronic Cancer of bladder (2 sources) Malignant tumor of urinary bladder; Translations: [Primary malignant neoplasm of bladder] 09-25-2020 Chronic Other circulatory disease (1 source) H/O: hypertension 03-07-2022 Episodic Other nutritional; endocrine; and metabolic disorders (1 source) Body mass index 30+ - obesity 03-07-2022 Chronic Other nutritional; endocrine; and metabolic disorders (1 source) History of hypercholesterolemia 03-07-2022 Episodic Other nutritional; endocrine; and metabolic disorders (1 source) Overweight 03-07-2022 Episodic Residual codes; unclassified (1 source) Insomnia 03-07-2022 Episodic Results Test Name Value Interpretation Reference Range Facil ity Encounters Encounter Date Encounter Type Care Provider Facility Start: 09-02-2023 End: 09-03-2023 ambulatory BENNY SMITH MD Facility:A Start: 05-21-2022 End: 05-21-2022 Patient encounter procedure BENNY SMITH MD [facility] Start: 08-27-2017 End: 08-31-2017 Amb[facility] Procedures Date Procedure Procedure Detail Performing Clinician Start: 08-31-2020 Transurethral bladde r excision BENNY SMITH MD Start: 09-28-2015 Gallbladder structur e (body structure) BENNY SMITH MD Start: 09-28-2013 Cystoscopy BENNY DUNNE MD Start: 09-28-1997 Hysterectomy BENNY DUNNE MD Payers Date Payer Category Payer Medicare [id number] 2023 Unknown [id number] 1945 Unknown [id number] Social History Date Type Detail Facility Start: 08-30-2020 Tobacco smoking status Never s moked tobacco (finding) [facility] Sex Assigned At Female [facility] Evaluation + Plan note Note Date & Type Note Facility Evaluation + Plan note No data available for this section [facility] Hospital Discharge instructions Note Date & Type Note Facility Hospital Discharge instructions No data available for this section [facility] Progress note Note Date & Type Note Facility Progress note No data available for this section [facility] Summary Purpose Family History No Family History Records FoundNo Family History Records Found Advance Directives No Advanced Directives Records FoundNo Advanced Directives Records Found Additional Source Comments INFORMATION SOURCE (unrecogn ized section and content) DATE CREATED AUTHOR AUTHOR'S AIDEE ATION 09/13/2023 [facility] ([place]) Care Team (unrecognized sect ion and content) Care Team Personnel Name: BONNIE MCCARTY MD Member Role: Primary Care Physician Address: Address: [facility]ULT [facility]ER[facility]ATR[facility]/[address] [place], [place] [address] Care Team Related Persons Name: CABRERA HAMMOND FOR RECORDS PERTAINING TO PATIENTS WHO ARE OR HAVE BEEN ENROLLED IN A CHEMICAL DEPENDENCY/SUBSTANCEABUSE PROGRAM, SOME INFORMATION MAY BE OMITTED. This clinical summary was aggregated from multiple sources. Caution should be exercised in using it in the provision of clinical care. This summary normalizes information from multiple sources, and as a consequence, information in this document may materially change the coding, format and clinical context of patient data. In addition, data may be omitted in some cases. CLINICAL DECISIONS SHOULD BE BASED ON THE PRIMARY CLINICAL RECORDS. [facility] [employer] [facility]. provides no warranty or guarantee of the accuracy or completeness of information in this document.
[2023-10-08 12:35] LABS: Absolute Lymphocyte Count 2.42 X10^3/uL (0.83-4.51); Absolute Neutrophil Count 7.6 X10^3/uL (2.0-7.7); Basophil# 0.09 X10^3/uL; Basophil% 0.8 % (0-1); Eosinophil# 0.12 X10^3/uL; Eosinophils% 1.1 % (0-5); Hemoglobin 13.3 g/dL (12.0-15.0); Lymphocyte # 2.42 X10^3/ul (0.83-4.51); Lymphocyte % 21.8 % (19-41); Mean Corp Hgb Conc 30.9 g/dL (32-36); Mean Corpuscular Hgb 27.8 pg (27.0-32.0); Monocyte% 7.2 % (0-10); NRBC Flagged by Analyzer 0 % (0-5); Neutrophil # 7.63 X10^3/uL (2.7-7.7); Neutrophil % 68.6 % (47-70); Platelet Count 398 K/mm3 (150-450); RBC Distribution Width CV 14.2 % (11.6-14.6); RBC Distribution Width SD 46.8 fl (35.1-43.9); Red Blood Count 4.78 M/mm3 (4.2-5.4); White Blood Count 11.1 K/mm3 (4.4-11.0)
[2023-10-08 13:11] LABS: Vitamin D,25 Hydroxy 42.3 ng/mL
[2023-10-08 13:14] LABS: ALB/GLOB Ratio 0.9 RATIO (0.9-2.4); AST(SGOT) 17 U/L (15-37); Alanine Aminotransfer ALT/SGPT 21 U/L (13-56); Albumin, Serum 3.5 g/dL (3.2-5.0); Alkaline Phosphatase 83 U/L (45-117); Anion Gap 9 (5-15); BUN 16 mg/dL (7-18); BUN/Creat Ratio 21.9 RATIO (10-20); Calcium,Total 9.5 mg/dL (8.5-10.1); Chloride 101 mmol/L (98-107); Creatinine, Serum 0.73 mg/dL (0.55-1.02); EST Glomerular Filtration Rate 82 mL/min (>60); Est Glom Filt Rate - Afr Amer 99 mL/min (>60); Globulin 4.1 g/dL (2.2-4.2); Glucose 122 mg/dL (74-106); Potassium 3.8 mmol/L (3.5-5.1); Protein, Total 7.6 g/dL (6.4-8.2); Sodium Level 138 mmol/L (136-145); Thyroid Stim Hormone (TSH) 1.34 uIU/mL (0.358-3.74)
== END | disposition home or self-care (01) ==
LOC: MFPLAB 10:23
PROVIDERS: PCP Family Medicine Geriatric Medicine; Visit Provider Family Medicine Geriatric Medicine
DX: I10 Essential (primary) hypertension (principal); E55.9 Vitamin D deficiency, unspecified
CPT/HCPCS: 36415; 80053; 82306; 84443; 85025

== ENCOUNTER → 2024-01-11 | Outpatient (CLI) | payer MEDICARE, BC, SELFPAY ==
[2024-01-11 11:23] LABS: Absolute Lymphocyte Count 2.21 X10^3/uL (0.83-4.51); Absolute Neutrophil Count 7.1 X10^3/uL (2.0-7.7); Basophil# 0.08 X10^3/uL; Basophil% 0.8 % (0-1); Eosinophil# 0.15 X10^3/uL; Eosinophils% 1.4 % (0-5); Hematocrit 40.3 % (37-47); Lymphocyte # 2.21 X10^3/ul (0.83-4.51); Lymphocyte % 21.4 % (19-41); Mean Corp Hgb Conc 32.3 g/dL (32-36); Mean Corpuscular Hgb 28.7 pg (27.0-32.0); Mean Platelet Vol. 11.3 fl (6.2-12.0); Monocyte# 0.74 X10^3/uL; Monocyte% 7.1 % (0-10); NRBC Flagged by Analyzer 0 % (0-5); Neutrophil # 7.13 X10^3/uL (2.7-7.7); Neutrophil % 68.9 % (47-70); Platelet Count 348 K/mm3 (150-450); RBC Distribution Width CV 14.3 % (11.6-14.6); RBC Distribution Width SD 45.8 fl (35.1-43.9); Red Blood Count 4.53 M/mm3 (4.2-5.4); White Blood Count 10.4 K/mm3 (4.4-11.0)
[2024-01-11 13:16] LABS: Vitamin D,25 Hydroxy 38.9 ng/mL
[2024-01-11 13:29] LABS: AST(SGOT) 18 U/L (15-37); Alanine Aminotransfer ALT/SGPT 22 U/L (13-56); Albumin, Serum 3.5 g/dL (3.2-5.0); Alkaline Phosphatase 82 U/L (45-117); Anion Gap 6 (5-15); BUN 13 mg/dL (7-18); BUN/Creat Ratio 21.5 RATIO (10-20); Calcium,Total 9.7 mg/dL (8.5-10.1); Chloride 100 mmol/L (98-107); Creatinine, Serum 0.61 mg/dL (0.55-1.02); EST Glomerular Filtration Rate 102 mL/min (>60); Est Glom Filt Rate - Afr Amer 123 mL/min (>60); Globulin 3.6 g/dL (2.2-4.2); Glucose 126 mg/dL (74-106); Protein, Total 7.1 g/dL (6.4-8.2); Sodium Level 136 mmol/L (136-145); Thyroid Stim Hormone (TSH) 1.41 uIU/mL (0.358-3.74)
== END | disposition home or self-care (01) ==
LOC: POLAB3 10:27
PROVIDERS: PCP Family Medicine Geriatric Medicine; Visit Provider Family Medicine Geriatric Medicine
DX: I10 Essential (primary) hypertension (principal); E55.9 Vitamin D deficiency, unspecified
CPT/HCPCS: 36415; 80053; 82306; 84443; 85025

== ENCOUNTER → 2024-04-11 | Outpatient (CLI) | payer MEDICARE, BC, SELFPAY ==
[2024-04-11 15:48] LABS: Absolute Lymphocyte Count 3.22 X10^3/uL (0.83-4.51); Absolute Neutrophil Count 7.7 X10^3/uL (2.0-7.7); Basophil# 0.09 X10^3/uL; Basophil% 0.7 % (0-1); Eosinophils% 1.6 % (0-5); Hematocrit 42.3 % (37-47); Hemoglobin 13.5 g/dL (12.0-15.0); Lymphocyte # 3.22 X10^3/ul (0.83-4.51); Lymphocyte % 26.2 % (19-41); Mean Corp Hgb Conc 31.9 g/dL (32-36); Mean Corpuscular Hgb 29.3 pg (27.0-32.0); Mean Corpuscular Volume 91.8 fL (81-99); Mean Platelet Vol. 11.3 fl (6.2-12.0); Monocyte# 1.01 X10^3/uL; Monocyte% 8.2 % (0-10); NRBC Flagged by Analyzer 0 % (0-5); Neutrophil # 7.73 X10^3/uL (2.7-7.7); Neutrophil % 62.9 % (47-70); Platelet Count 359 K/mm3 (150-450); RBC Distribution Width CV 13.8 % (11.6-14.6); RBC Distribution Width SD 46.6 fl (35.1-43.9); Red Blood Count 4.61 M/mm3 (4.2-5.4); White Blood Count 12.3 K/mm3 (4.4-11.0)
[2024-04-11 16:06] LABS: Vitamin D,25 Hydroxy 29.5 ng/mL
[2024-04-11 16:31] LABS: ALB/GLOB Ratio 0.8 RATIO (0.9-2.4); AST(SGOT) 23 U/L (15-37); Alanine Aminotransfer ALT/SGPT 28 U/L (13-56); Albumin, Serum 3.4 g/dL (3.2-5.0); Alkaline Phosphatase 89 U/L (45-117); Anion Gap 7 (5-15); BUN 12 mg/dL (7-18); BUN/Creat Ratio 20.3 RATIO (10-20); Calcium,Total 9.5 mg/dL (8.5-10.1); Chloride 102 mmol/L (98-107); Creatinine, Serum 0.59 mg/dL (0.55-1.02); EST Glomerular Filtration Rate 105 mL/min (>60); Est Glom Filt Rate - Afr Amer 126 mL/min (>60); Globulin 4.3 g/dL (2.2-4.2); Glucose 132 mg/dL (74-106); Potassium 4.7 mmol/L (3.5-5.1); Protein, Total 7.7 g/dL (6.4-8.2); Sodium Level 138 mmol/L (136-145); Thyroid Stim Hormone (TSH) 1.48 uIU/mL (0.358-3.74)
[2024-04-13 09:37] LABS: Hemoglobin A1c 6.8 % (3.8-5.6)
== END | disposition home or self-care (01) ==
LOC: POLAB3 13:59
PROVIDERS: PCP Family Medicine Geriatric Medicine; Visit Provider Family Medicine Geriatric Medicine
DX: I10 Essential (primary) hypertension (principal); E11.9 Type 2 diabetes mellitus without complications; E55.9 Vitamin D deficiency, unspecified
CPT/HCPCS: 36415; 80053; 82306; 83036; 84443; 85025

== ENCOUNTER → 2024-05-23 | Outpatient (CLI) | payer MEDICARE, BC, SELFPAY ==
--- NOTE | 2024-05-23 15:36 | RAD_ITS ---
EXAM: XR THORACIC SPINE, 2 VIEWS CLINICAL INDICATION: BACK PAIN TECHNIQUE: Frontal and lateral views of the thoracic spine. COMPARISON: No relevant prior studies available. FINDINGS: VERTEBRAE: There is a compression deformity of the T7 vertebral body which was present on a chest x-ray dated 11/06/2022 and is unchanged. There is mild curvature in the thoracic spine. No spondylolisthesis. No significant facet arthropathy. DISC SPACES: There are mild degenerative changes with disc space narrowing. RAD/Thoracic Spine 2 Views IMPRESSION: Old compression deformity of T7. There are degenerative changes with disc space narrowing. There are no acute osseous abnormalities. Electronically Signed: Randolph Diggs MD at 17:11 EDT ,
== END | disposition home or self-care (01) ==
LOC: RAD 15:28
PROVIDERS: PCP Family Medicine Geriatric Medicine; Referring Provider Family Medicine Geriatric Medicine; Visit Provider Family Medicine Geriatric Medicine
DX: M54.14 Radiculopathy, thoracic region (principal); M51.9 Unspecified thoracic, thoracolumbar and lumbosacral intervertebral disc disorder; M62.830 Muscle spasm of back
CPT/HCPCS: 72070

== ENCOUNTER → 2024-07-12 | Outpatient (CLI) | payer MEDICARE, BC, SELFPAY ==
--- NOTE | 2024-07-12 15:40 | RAD_ITS ---
STUDY: X-RAY - PELVIS AND LEFT HIP REASON FOR EXAM: Female, 78 years old. HIP PAIN TECHNIQUE: 3 views of the pelvis and hip. COMPARISON: None. FINDINGS: Nondisplaced fractures are seen of the left superior and inferior pubic rami. Normal bilateral iliac wings, sacroiliac joints and visualized sacrum. Normal pubic symphysis. Normal bilateral ischial tuberosities. Normal visualized femoral head. Normal acetabulum. Normal hip joint. RAD/HIP, UNI W/ Pelvis 2-3 Views IMPRESSION: Nondisplaced fractures of the left superior and inferior pubic rami. Otherwise negative. Electronically Signed: Honorio Manzo MD at 23:02 EDT ,
[2024-07-12 16:19] LABS: Absolute Lymphocyte Count 2.43 X10^3/uL (0.83-4.51); Basophil# 0.07 X10^3/uL; Basophil% 0.4 % (0-1); Eosinophils% 0.6 % (0-5); Hemoglobin 13.6 g/dL (12.0-15.0); Lymphocyte # 2.43 X10^3/ul (0.83-4.51); Lymphocyte % 13.7 % (19-41); Mean Corp Hgb Conc 31.6 g/dL (32-36); Mean Corpuscular Hgb 29.1 pg (27.0-32.0); Mean Corpuscular Volume 92.1 fL (81-99); Mean Platelet Vol. 10.4 fl (6.2-12.0); Monocyte# 1.08 X10^3/uL; Monocyte% 6.1 % (0-10); NRBC Flagged by Analyzer 0 % (0-5); Neutrophil # 14.03 X10^3/uL (2.7-7.7); Neutrophil % 78.8 % (47-70); Platelet Count 398 K/mm3 (150-450); RBC Distribution Width CV 15.4 % (11.6-14.6); RBC Distribution Width SD 52.1 fl (35.1-43.9); Red Blood Count 4.67 M/mm3 (4.2-5.4); White Blood Count 17.8 K/mm3 (4.4-11.0)
[2024-07-12 16:29] LABS: D-Dimer Quantitative (DVT/PE) 0.42 FEU/ug/m (0.27-0.49)
[2024-07-12 16:46] LABS: ALB/GLOB Ratio 0.9 RATIO (0.9-2.4); AST(SGOT) 11 U/L (15-37); Alanine Aminotransfer ALT/SGPT 22 U/L (13-56); Albumin, Serum 3.4 g/dL (3.2-5.0); Alkaline Phosphatase 123 U/L (45-117); Anion Gap 7 (5-15); BUN 15 mg/dL (7-18); BUN/Creat Ratio 23.8 RATIO (10-20); CPK Total, Creatine Kinase 48 U/L (26-192); Calcium,Total 9.6 mg/dL (8.5-10.1); Chloride 102 mmol/L (98-107); Creatinine, Serum 0.63 mg/dL (0.55-1.02); EST Glomerular Filtration Rate 97 mL/min (>60); Est Glom Filt Rate - Afr Amer 118 mL/min (>60); Globulin 3.8 g/dL (2.2-4.2); Glucose 122 mg/dL (74-106); Magnesium 1.6 mg/dL (1.6-2.6); Potassium 3.8 mmol/L (3.5-5.1); Protein, Total 7.2 g/dL (6.4-8.2); Sodium Level 138 mmol/L (136-145); Troponin-I HS 12 pg/mL (3.0-54.0)
--- OUTSIDE RECORDS SUMMARY | 2024-07-12 16:57 | XMS RPT_ITS | CCD ---
Author Organization [facility] Care Team Providers Care Pathology Collector Name Role Phone CAMILA FAROOQ Unavailable Unavailable BIBIANA TRINH, DR NICOLE Primary Care Physician BENNY SMITH MD Attending Unavailable DR BONNIE MCCARTY MD Primary Care Unavailable Allergies Allergy Classification Reported Allergen(s) Allergy Type Date of Onset Reaction(s) Facility (1 source) acetaminophen / HYDROcodone; Translations: [HYDROCODONE-ACET AMINOPHEN] Drug Allergy 3 [facility] (3 sources) codeine; Translations: [CODEINE] Drug Allergy 3 [facility] (1 source) Penicillins; Translations: [PENICILLINS] Propensity to adverse reactions to drug (disorder) 3 [facility] (1 source) Penicillin; Translations: [penicillin] Drug Allergy [facility] (1 source) penicillin G benzathine / penicillin G procaine; Translations: [benzathine penicillin-procai ne penicillin] Drug Allergy Unknown [address] Urology Medications Current Medications Medication Drug [...] q12h, # 6 tab(s), 0 Refill(s), Pharmacy: [address], [address], cm, 04/10/21 8:36:00 EDT, Height, 94.4, [...] Results Test Name Value Interpretation Reference Range Facility [facility] 08-27-2017 CNOV Office Visit (DELANO) ITZ DEL VALLE ([id number]) 1945 FDate Time Provider [id number]/30/17 3:00 PM CAMILA FAROOQ During your visit today, we recorded the following information about you:Camila Farooq MD 08/30/2017 11:58 AM Maru Vegas, a patient of Dr. Gillespie, presented to ED [facility] with abdominal pain.Found to have acute cholecystitis and underwent urgent laparoscopiccholecystectomy 08/08/17. Had severe cholecystitis which precludedidentification and closure of the cystic duct and therefore partialcholecystectomy done with cuff of proximal gallbladder left and cystic ductleft open. Required ERCP 08/11/17 with stent placement for directionaldrainage.Pathology revealed ANDquot;acute and chronic ulcerated cholecystitisANDquot;.Postopera tive recovery complicated by respiratory insufficiency, atrialfibrillation, and kourtney in blood cultures and presently being treated forthis.Past Medical History:hypertensionhyperlipide miahx of bladder tumorsAtrial fibCandida sepsisPast Surgical History:hysterectomyright breast biopsyTURBBxLaparoscopic cholecystectomy 08/08/17Medications:Aspirin [Aspir-Low] 81 mg PO DAILYAtorvastatin Calcium [Lipitor] 80 mg PO QHSBiotin 2,500 mcg PO DAILYClonidine HCl 0.1 mg PO BIDErgocalciferol [Vitamin D] 125 mg PO QMONTHLosartan/Hydrochlorothiaz mi [Hyzaar 100-12.5 Tablet] 1 tab PO DAILYMetoprolol Succinate [Toprol Xl] 50 mg PO DAILYTizanidine HCl [Zanaflex] 4 mg PO BID PRNZolpidem Tartrate [Ambien] 10 mg PO QHS PRNAmiodarone HCl [Cordarone] 200 mg PO BID #4Amiodarone HCl [Cordarone] 200 mg PO DAILY #30 tabletLactobacillus Acidophilus [Acidophilus] 1 tablet PO BID #14 tabletMicafungin Sodium [Mycamine] 100 mg IV Q24 vialPotassium Chloride [K-Dur] 40 meq PO BIDCM #60 tabletAllergies:codiene, penicillins, zofranReview of Systems: General - denies feversPhysical examination: Vital signs Temp 97.9F HR 70 BP 192.95 General WD/WN WF in no apparent distress, alert and oriented, not septicappearing HEENT Normocephalic. EOM intact with sclera clear and no icterus noted.Neck is supple with no jugular venous distention noted. Trachea is midline. Lungs normal breath sounds Heart Regular rate Abdomen soft and benign, wounds are healing well, no evidence of infection Extremities no calf tenderness noted. Skin normal skin integrity. Neurological non focal. Psychological normal affect, patient is calm and appropriateImpression:S/p laparoscopic cholecystectomy and ERCPDiscussion/Plan:Follow up as per needed.Patient to return to her primary physician for medical care.Referring Provider: SELF [[id number]]Allergies As of Date: 08/27/2017 Noted Allergy ReactionCODEINE 01/27/2013 1 - Mental Status ChangePENICILLINS 01/27/2013 4 - HivesVICODIN (HYDROCODONE-ACETAMINOPHE*01/27 1 - Mental Status ChangeDate Reviewed: 08/27/2017Reviewed by: Emanuel Jha GARAGE DOOR TECHNICIAN - Fully AssessedPrimary Visit Diagnosis:Surgery follow-up examination [Z09]Prescriptions as of 08/27/2017 Sig: AMIODARONE 200 MG TABLET TIZANIDINE 4 MG TABLET ASPIRIN 81 MG TABLET,DELAYED * Take 81 mg by mouth once branden* LOSARTAN 100 MG-HYDROCHLOROTH* METOPROLOL SUCCINATE ER 50 MG* POTASSIUM CHLORIDE ER 20 MEQ * ATORVASTATIN 80 MG TABLET Take 1 tablet by mouth once d* LISINOPRIL 20 MG TABLET Take 1 tablet by mouth once d* CLONIDINE HCL 0.1 MG TABLET Take 1 tablet by mouth twice * ZOLPIDEM 10 MG TABLET Take 1 tablet by mouth at bed* ALPRAZOLAM 1 MG TABLET Take 1 tablet by mouth at bed* TIZANIDINE 4 MG CAPSULE Take 1 capsule by mouth three*Problem List As Of Date 08/27/2017 Noted Resolved Screening for colon cancer [Z12.11] INVALID FOR* Status:Closed by MD CAMILA FAROOQ on 08/30/17 Normal [facility] PROGRESSon 08-27-2017 PROGRESS HNO ID: [id number] thor: Camila Glez: (none)Author Type: PhysicianType: Progress NotesFiled: 08/30/2017 11:58 AMNote Text:Itz Vegas, a patient of Dr. Gillespie, presented to ED [facility] with abdominalpain.Found to have acute cholecystitis and underwent urgent laparoscopiccholecystectomy 08/08/17. Had severe cholecystitis which precludedidentification and closure of the cystic duct and therefore partialcholecystectomy done with cuff of proximal gallbladder left and cysticduct left open. Required ERCP 08/11/17 with stent placement fordirectional drainage.Pathology revealed acute and chronic ulcerated cholecystitis .Postoperative recovery complicated by respiratory insufficiency, atrialfibrillation, and kourtney in blood cultures and presently being treatedfor this.Past Medical History:hypertensionhyperlipide miahx of bladder tumorsAtrial fibCandida sepsisPast Surgical History:hysterectomyright breast biopsyTURBBxLaparoscopic cholecystectomy 08/08/17Medications:Aspirin [Aspir-Low] 81 mg PO DAILYAtorvastatin Calcium [Lipitor] 80 mg PO QHSBiotin 2,500 mcg PO DAILYClonidine HCl 0.1 mg PO BIDErgocalciferol [Vitamin D] 125 mg PO QMONTHLosartan/Hydrochlorothiaz mi [Hyzaar 100-12.5 Tablet] 1 tab PO DAILYMetoprolol Succinate [Toprol Xl] 50 mg PO DAILYTizanidine HCl [Zanaflex] 4 mg PO BID PRNZolpidem Tartrate [Ambien] 10 mg PO QHS PRNAmiodarone HCl [Cordarone] 200 mg PO BID #4Amiodarone HCl [Cordarone] 200 mg PO DAILY #30 tabletLactobacillus Acidophilus [Acidophilus] 1 tablet PO BID #14 tabletMicafungin Sodium [Mycamine] 100 mg IV Q24 vialPotassium Chloride [K-Dur] 40 meq PO BIDCM #60 tabletAllergies:codiene, penicillins, zofranReview of Systems: General - denies feversPhysical examination: Vital signs Temp 97.9F HR 70 BP 192.95 General WD/WN WF in no apparent distress, alert and oriented, not septicappearing HEENT Normocephalic. EOM intact with sclera clear and no icterus noted. Neck is supple with no jugular venous distention noted. Trachea ismidline. Lungs normal breath sounds Heart Regular rate Abdomen soft and benign, wounds are healing well, no evidence ofinfection Extremities no calf tenderness noted. Skin normal skin integrity. Neurological non focal. Psychological normal affect, patient is calm and appropriateImpression:S/p laparoscopic cholecystectomy and ERCPDiscussion/Plan:Follow up as per needed.Patient to return to her primary physician for medical care. Normal [facility] Encounters Encounter Date Encounter Type Care Provider Facility Start: 09-02-2023 End: 09-03-2023 ambulatory BENNY SMITH MD Facility:A Start: 05-21-2022 End: 05-21-2022 Patient encounter [facility] Start: 08-27-2017 End: 08-31-2017 Ambulatory CAMILA CASTELLANOS FAROOQ [facility] Procedures Date Procedure Procedure Detail Performing Clinician Start: 08-31-2020 Transurethral bladde r excision BENNY SMITH MD Start: 09-28-2015 Gallbladder structur e (body structure) BENNY SMITH MD Start: 09-28-2013 Cystoscopy BENNY DUNNE MD Start: 09-28-1997 Hysterectomy BENNY DUNNE MD Payers Date Payer Category Payer Medicare [id number] 2023 Unknown [id number] 1945 Unknown [id number] Social History Date Type Detail Facility Start: 08-30-2020 Tobacco smoking status Never s moked tobacco (finding) [facility] Sex Assigned At Female [facility] Evaluation + Plan note Note Date & Type Note Facility Evaluation + Plan note No data available for this section [facility] Hospital Discharge instructions Note Date & Type Note Facility Hospital Discharge instructions No data available for this section [facility] Progress note Note Date & Type Note Facility Progress note No data available for this section [facility] Summary Purpose Family History No Family History Records FoundNo Family History Records Found Advance Directives No Advanced Directives Records FoundNo Advanced Directives Records Found Additional Source Comments INFORMATION SOURCE (unrecogn ized section and content) DATE CREATED AUTHOR 03/23/2018 [facility] DATE CREATED AUTHOR AUTHOR'S AIDEE ATKAILYN 09/13/2023 [facility] ([place]) Care Team (unrecognized sect ion and content) Care Team Personnel Name: BONNIE MCCARTY MD Member Role: Primary Care Physician Address: Address: [facility] [address] [place] [address] [address] [place] [id number] Care Team Related Persons Name: CABRERA HAMMOND [...] BE BASED ON THE PRIMARY CLINICAL RECORDS. [facility] [employer] [facility]. provides no warranty or guarantee of the accuracy or completeness of information in this document.
[2024-07-19 09:09] LABS: Myoglobin, Serum 30 ng/mL (25-58)
== END | disposition home or self-care (01) ==
PROVIDERS: PCP Family Medicine Geriatric Medicine; Referring Provider Anesthesiology; Visit Provider Anesthesiology
DX: E11.65 Type 2 diabetes mellitus with hyperglycemia (principal); I48.91 Unspecified atrial fibrillation; E55.9 Vitamin D deficiency, unspecified; I10 Essential (primary) hypertension; E87.6 Hypokalemia; M25.552 Pain in left hip
CPT/HCPCS: 36415; 73502; 80053; 82306; 82550; 83735; 83874; 83880; 84443; 84484; 85025; 85379

== ENCOUNTER → 2024-08-15 | Outpatient (CLI) | payer MEDICARE, BC, SELFPAY ==
--- NOTE | 2024-08-15 13:54 | ECHOCS_ITS ---
Reason For Study: Afib/Flutter Procedure This was a 2D Doppler, Color Flow transthoracic echocardiogram. The study was technically difficult. Contrast injection was performed. Exam performed in department. Left Ventricle Normal LV size. Left ventricular systolic function is normal. The left ventricular ejection fraction is 65 %. No regional wall motion abnormalities noted. Right Ventricle Normal RV size. Normal systolic function. Atria The left atrium is mildly enlarged. Normal right atrium. Mitral Valve Normal mitral valve. Tricuspid Valve Normal tricuspid valve. Mild tricuspid valve insufficiency. Pulmonary artery systolic pressure is 31 mmHg. Aortic Valve The aortic valve is not well visualized. Mild (1+) aortic valve insufficiency. Pulmonic Valve Normal pulmonic valve. Great Vessels Mildly dilated aortic root. The pulmonary artery is normal size. Inferior vena cava collapse with respiration. Pericardium/Pleural No pericardial effusion. Medication 22 gauge I.V. with prn adaptor inserted into right arm. Diluted definity 2ml given slow IV push to enhance endocardial definition. MMode/2D Measurements & Calculations LVIDd: 4.1 cm IVSd: 0.95 cm Ao root diam: 3.9 cm LVIDs: 3.1 cm LVPWd: 0.80 cm RVDd: 3.3 cm FS: 23.7 % LAV(MOD-bp): 74.6 ml LA A4 area: 23.8 cm2 LA dimension(2D): 3.7 cm LAV(MOD-bp) Indexed: 40.1 ml/m2 LAV(MOD-sp2): 62.7 ml LAV(MOD-sp4): 68.4 ml RA A4 area: 23.2 cm2 Doppler Measurements & Calculations MV E max mahesh: 83.1 cm/sec MV V2 max: 115.3 cm/sec Ao V2 max: 114.5 cm/sec MV max P.3 mmHg Ao max P.4 mmHg MV V2 mean: 60.6 cm/sec MV mean P.8 mmHg MV V2 VTI: 18.0 cm AI max mahesh: 356.7 cm/sec LV V1 max: 92.2 cm/sec MR max mahesh: 428.5 cm/sec AI max P.9 mmHg LV V1 max P.4 mmHg MR max P.4 mmHg AI dec slope: 250.0 cm/sec2 AI P1/2t: 417.9 msec PA V2 max: 91.8 cm/sec TR max mahesh: 264.3 cm/sec TR max P.9 mmHg ECHO/Echo Complete W/ Contrast Interpretation Summary Normal LV size. Left ventricular systolic function is normal. The left ventricular ejection fraction is 65 %. Mildly dilated aortic root. The left atrium is mildly enlarged. Contrast injection was performed. Ordering Physician: Geovanna Hale Referring Physician: Geovanna Hale Performed By: Dipak Jesus RCS
== END | disposition home or self-care (01) ==
LOC: CVS 13:52
PROVIDERS: PCP Family Medicine Geriatric Medicine; Referring Provider Nurse Practitioner Gerontology; Visit Provider Nurse Practitioner Gerontology
DX: R06.09 Other forms of dyspnea (principal)
CPT/HCPCS: 93306; Q9957; A4216; C8929

== ENCOUNTER → 2024-08-19 | Outpatient (CLI) | payer MEDICARE, BC, SELFPAY | END | disposition home or self-care (01) | LOC: PSN 08:58 | PROVIDERS: PCP Family Medicine Geriatric Medicine; Referring Provider Nurse Practitioner Gerontology; Visit Provider Nurse Practitioner Gerontology | DX: I48.92 Unspecified atrial flutter (principal) | CPT/HCPCS: 93225; 93226 ==

== ENCOUNTER 2024-10-11 10:22 | Day surgery (SDC) | payer MEDICARE, BC, SELFPAY ==
--- NOTE | 2024-10-05 11:10 | RAD_ITS ---
HISTORY: For [facility]. TECHNIQUE: XR Chest 2 Views. COMPARISON: 11/06/2022. FINDINGS: CARDIOMEDIASTINAL BORDERS: Cardiac silhouette again upper limits of normal in size. Mediastinal contour unremarkable with calcification of the aortic knob. LUNGS: Chronic hyperinflation with scarring of the lung bases. PLEURA: No pleural effusion or pneumothorax seen. OSSEOUS STRUCTURES: Old right fifth rib fracture. Degenerative change old mid thoracic compression fracture. RAD/Chest PA and Lateral IMPRESSION: No acute cardiopulmonary process identified. Electronically Signed: Dayana Hendrickson MD at 14:53 EST ,
[2024-10-05 12:57] LABS: Anion Gap 5 (5-15); BUN 16 mg/dL (7-18); BUN/Creat Ratio 19.6 RATIO (10-20); Calcium,Total 9.9 mg/dL (8.5-10.1); Chloride 103 mmol/L (98-107); Creatinine, Serum 0.82 mg/dL (0.55-1.02); EST Glomerular Filtration Rate 72 mL/min (>60); Est Glom Filt Rate - Afr Amer 87 mL/min (>60); Glucose 119 mg/dL (74-106); Potassium 4.3 mmol/L (3.5-5.1); Sodium Level 138 mmol/L (136-145)
[2024-10-10 08:04] VITALS: BMI 32.2
--- NOTE | 2024-10-11 12:54 | PCM.OP.PRO2 ---
Procedures Pulmonary Pulmonary Procedures /Diagnostic Testin Con Sedation Non-invasive Procedural Procedure Information Description of procedure: CONSCIOUS SEDATION REPORT DATE OF SERVICE: October 11, 2024 BRIEF HISTORY OF PRESENT ILLNESS: The patient is a 79-year-old female who presented to [facility] to undergo an elective outpatient cardioversion due to atrial fibrillation. The patient reported a prior history of postanesthesia nausea. She has never previously undergone a cardioversion. The patient denied a history of obstructive sleep apnea. She is a non-smoker. The patient is systemically anticoagulated on Eliquis. Her last surface echocardiogram demonstrated an ejection fraction of approximately 65%. PHYSICAL EXAMINATION: VITAL SIGNS: Reviewed and were acceptable. GENERAL: The patient is a female, in no apparent distress, speaking in full sentences. HEENT: Normocephalic, atraumatic. Mucous membranes are moist and pink. Good mouth opening noted. Trachea is midline. Good neck mobility. CHEST: S1, S2 irregularly irregular. No murmurs, rubs or gallops were noted. LUNGS: Clear to auscultation bilaterally without appreciable wheezes, rales or rhonchi. ABDOMEN: Soft, nontender, nondistended. Positive bowel sounds. EXTREMITIES: There is no clubbing, cyanosis or edema. ASA Class: II DESCRIPTION OF PROCEDURE: After confirmation of informed consent, the patient's anesthesia plan was reviewed in detail. Propofol was chosen. Risks and benefits were reviewed and the patient agreed to proceed. At 1235, the patient was given 40 mg of propofol. The patient achieved an appropriate level of sedation and was given a 200 joule synchronized cardioversion by Dr. Gerard at the bedside. This was successful in achieving normal sinus rhythm. The patient was monitored until 1248, at which time she reached her baseline mental status and function. The patient tolerated the procedure well. COMPLICATIONS: None ESTIMATED BLOOD LOSS: None RECOMMENDATIONS: Okay to recover in usual fashion.
--- NOTE | 2024-10-11 13:05 | PCM.OP.PRO2 ---
Problems Associated Problem List Diagnoses (1) Atrial flutter with rapid ventricular response: Non-invasive Procedural Procedure Information Date of Procedure: 10/11/24 Pre-Procedure Diagnosis: Atrial fibrillation Post-Procedure Diagnosis: Same Procedure Performed:: DC cardioversion e learning coordinator: No Procedure Time Out: 12:20 Procedure Start Time: 12:30 Procedure Stop Time: 12:35 Special Medications: 40 mg of intravenous propofol Description of procedure: Patient was brought to the cardiac catheterization lab in the postabsorptive nonsedated state. Informed consent was obtained. Anterior-posterior pads were applied. The patient was seen by Dr. Christine of the critical care division. 200 J of synchronized DC biphasic cardioversion energy were applied with prompt reversal to sinus rhythm. Patient tolerated the procedure well. Procedure findings: Successful cardioversion to sinus rhythm Complications Complications: No
== END 2024-10-11 13:30 | disposition home or self-care (01) ==
PROVIDERS: Physician Assistant Medical; PCP Family Medicine Geriatric Medicine; Referring Provider Internal Medicine Cardiovascular Disease; Visit Provider Internal Medicine Cardiovascular Disease
DX: I48.91 Unspecified atrial fibrillation (principal); I48.92 Unspecified atrial flutter; E11.9 Type 2 diabetes mellitus without complications; I10 Essential (primary) hypertension; F41.9 Anxiety disorder, unspecified; E78.5 Hyperlipidemia, unspecified; Z79.01 Long term (current) use of anticoagulants; Z79.899 Other long term (current) drug therapy
CPT/HCPCS: 36415; 71046; 80048; 92960; 93005

== ENCOUNTER → 2024-10-20 | Outpatient (CLI) | payer MEDICARE, BC, SELFPAY ==
[2024-10-20 11:16] LABS: Absolute Lymphocyte Count 1.91 X10^3/uL (0.83-4.51); Absolute Neutrophil Count 10.4 X10^3/uL (2.0-7.7); Basophil# 0.07 X10^3/uL; Basophil% 0.5 % (0-1); Eosinophils% 0.7 % (0-5); Hematocrit 44.8 % (37-47); Hemoglobin 14.6 g/dL (12.0-15.0); Lymphocyte # 1.91 X10^3/ul (0.83-4.51); Lymphocyte % 13.9 % (19-41); Mean Corp Hgb Conc 32.6 g/dL (32-36); Mean Corpuscular Hgb 30.6 pg (27.0-32.0); Mean Corpuscular Volume 93.9 fL (81-99); Mean Platelet Vol. 10.6 fl (6.2-12.0); Monocyte# 1.22 X10^3/uL; Monocyte% 8.9 % (0-10); NRBC Flagged by Analyzer 0 % (0-5); Neutrophil # 10.38 X10^3/uL (2.7-7.7); Neutrophil % 75.3 % (47-70); Platelet Count 322 K/mm3 (150-450); RBC Distribution Width CV 14.7 % (11.6-14.6); RBC Distribution Width SD 51.6 fl (35.1-43.9); Red Blood Count 4.77 M/mm3 (4.2-5.4); White Blood Count 13.8 K/mm3 (4.4-11.0)
[2024-10-20 11:41] LABS: Vitamin D,25 Hydroxy 38.4 ng/mL
[2024-10-20 11:47] LABS: ALB/GLOB Ratio 0.9 RATIO (0.9-2.4); AST(SGOT) 13 U/L (15-37); Alanine Aminotransfer ALT/SGPT 26 U/L (13-56); Albumin, Serum 3.3 g/dL (3.2-5.0); Alkaline Phosphatase 84 U/L (45-117); Anion Gap 8 (5-15); BUN 12 mg/dL (7-18); BUN/Creat Ratio 17.6 RATIO (10-20); Calcium,Total 9.5 mg/dL (8.5-10.1); Chloride 102 mmol/L (98-107); Creatinine, Serum 0.68 mg/dL (0.55-1.02); EST Glomerular Filtration Rate 89 mL/min (>60); Est Glom Filt Rate - Afr Amer 107 mL/min (>60); Globulin 3.8 g/dL (2.2-4.2); Glucose 108 mg/dL (74-106); Potassium 4.8 mmol/L (3.5-5.1); Protein, Total 7.1 g/dL (6.4-8.2); Sodium Level 137 mmol/L (136-145)
== END | disposition home or self-care (01) ==
LOC: POLAB3 11:05
PROVIDERS: PCP Family Medicine Geriatric Medicine; Visit Provider Family Medicine Geriatric Medicine
DX: E11.65 Type 2 diabetes mellitus with hyperglycemia (principal); E55.9 Vitamin D deficiency, unspecified; I10 Essential (primary) hypertension
CPT/HCPCS: 36415; 80053; 82306; 84443; 85025

== ENCOUNTER 2024-10-30 19:43 | Emergency (ER) | payer MEDICARE, BC, SELFPAY ==
[2024-10-30] VITALS (12 sets, daily range): BP systolic 116–179; BP diastolic 72–96; PULSE 103–164; RESP 17–20; TEMP 36.9–37.4; O2SAT 94–97; BMI 33.8
--- NOTE | 2024-10-30 19:52 | EKG12_ITS ---
Test Reason : CP Blood Pressure : */* mmHG Vent. Rate : 140 BPM Atrial Rate : * BPM P-R Int : * ms QRS Dur : 76 ms QT Int : 292 ms P-R-T Axes : * 16 160 degrees QTcB Int : 445 ms Critical Test Result: High HR Atrial fibrillation with rapid ventricular response Cannot rule out Inferior infarct , age undetermined ST & T wave abnormality, consider lateral ischemia Abnormal ECG Confirmed by GORGE GIRALDO MD ([id number]), editor producer UMU HARRIS ([id number]) on 11/01/2024 9:01:11 AM Also confirmed by GORGE GIRALDO MD ([id number]), editor producer AURELIO TUCKER ([id number]) on 11/02/2024 8:30:24 AM Referred By: Nora Solano Confirmed By: GORGE GIRALDO MD
--- NOTE | 2024-10-30 20:36 | EKG12_ITS ---
Test Reason : REPEAT Blood Pressure : */* mmHG Vent. Rate : 107 BPM Atrial Rate : 107 BPM P-R Int : 186 ms QRS Dur : 76 ms QT Int : 338 ms P-R-T Axes : 74 0 103 degrees QTcB Int : 451 ms Sinus tachycardia with Premature supraventricular complexes Inferior infarct , age undetermined ST & T wave abnormality, consider lateral ischemia Abnormal ECG When compared with ECG of 30-Oct-2024 19:52, MANUAL COMPARISON REQUIRED DATA IS UNCONFIRMED Confirmed by KRISTAL TRINH, GORGE ([id number]), industrial editor UMU HARRIS ([id number]) on 11/01/2024 8:57:13 AM Referred By: Nora Solano Confirmed By: GORGE GIRALDO MD
--- NOTE | 2024-10-30 21:00 | RAD_ITS ---
PROCEDURE: CHEST PA AND LATERAL REASON FOR EXAM: Palpitations since yesterday. History of atrial fibrillation. Increased shortness of breath. Denies chest pain TECHNIQUE: Single frontal image including the chest and abdomen. COMPARISON: None. FINDINGS: Lungs are clear of pneumonia and congestion. No pleural effusions, thickening, or pneumothorax. Heart and mediastinum are normal. Aorta is atherosclerotic and tortuous. No hilar masses. Old healed fracture of the right 5th rib. Anterior wedging of the T5 and T7 vertebral bodies. Cardiac monitoring leads overlie the chest wall. RAD/Chest PA and Lateral IMPRESSION: 1. No active cardiopulmonary disease. 2. Vertebral body compression fractures. The T5 fracture was not seen on the previous study. 3. Old healed right 5th rib fracture. Reading Location: [facility]
[2024-10-30 21:05] LABS: Anion Gap 11 (5-15); BUN 24 mg/dL (7-18); BUN/Creat Ratio 31.1 RATIO (10-20); Calcium,Total 9.6 mg/dL (8.5-10.1); Chloride 103 mmol/L (98-107); Creatinine, Serum 0.77 mg/dL (0.55-1.02); EST Glomerular Filtration Rate 77 mL/min (>60); Est Glom Filt Rate - Afr Amer 93 mL/min (>60); Estimated Creatinine Clearance 58.24 ml/min; Glucose 135 mg/dL (74-106); Sodium Level 138 mmol/L (136-145); Troponin-I HS 16 pg/mL (3.0-54.0)
[2024-10-30 21:19] LABS: Absolute Neutrophil Count 9.5 X10^3/uL (2.0-7.7); Basophil# 0.08 X10^3/uL; Basophil% 0.6 % (0-1); Eosinophil# 0.14 X10^3/uL; Hematocrit 43.3 % (37-47); Hemoglobin 14.6 g/dL (12.0-15.0); Lymphocyte % 21.5 % (19-41); Mean Corp Hgb Conc 33.7 g/dL (32-36); Mean Corpuscular Hgb 31.5 pg (27.0-32.0); Mean Corpuscular Volume 93.5 fL (81-99); Mean Platelet Vol. 11.4 fl (6.2-12.0); Monocyte# 1.13 X10^3/uL; Monocyte% 8.1 % (0-10); NRBC Flagged by Analyzer 0 % (0-5); Neutrophil # 9.52 X10^3/uL (2.7-7.7); Neutrophil % 68.4 % (47-70); Platelet Count 370 K/mm3 (150-450); RBC Distribution Width CV 14.8 % (11.6-14.6); RBC Distribution Width SD 51.3 fl (35.1-43.9); Red Blood Count 4.63 M/mm3 (4.2-5.4); White Blood Count 13.9 K/mm3 (4.4-11.0)
[2024-10-30] MEDS: Propofol 200 MG/20 ML Vial 40 MG IV BOLUS (22:07)
[2024-10-30] MEDS: Metoprolol Tartrate 25 MG Tablet PO (22:59)
--- NOTE | 2024-10-30 23:28 | ED.VIS.CHEST ---
HPI History of Present Illness Chief Complaint: Palpitations Informant: patient Narrative Narrative: Patient is a 79-year-old female with history of atrial fibrillation with recent cardioversion about 3 weeks ago before by Dr. Gerard. She states that since the cardioversion she has been completely compliant with her Eliquis. Patient states that yesterday she felt herself going atrial fibrillation feeling palpitations. States sometimes she will feel a bit show you to go back into sinus rhythm pretty quickly. She has not been going on. She did feel little short of breath the last day. States overall she has been feeling okay has been quite active. She came in for further evaluation resizing chest pain. Denies any swelling of her legs. Denies any recent medication changes. No fever or chills reported. [facility] Medical History Anxiety MDD (major depressive disorder) Osteopenia Gallstones Emotional problems Cancer Arthritis Atrial flutter with rapid ventricular response (08/06/21) Atrial fibrillation with rapid ventricular response (08/11/17) Essential hypertension Skin lesion of breast Erythematous bladder mucosa Skin lesion of face History of skin cancer Near syncope Acute pyelonephritis Long-term use of high-risk medication Postoperative atrial fibrillation (08/11/17) HLD (hyperlipidemia) Home Medications ?Medication ?Instructions ?Recorded ?Last Taken ?Type losartan 100 mg tablet 100 mg PO DAILY 09/12/21 Unknown History acetaminophen 500 mg oral powder 500 mg PO Q6H PRN fever or pain 09/13/21 Unknown History packet (Tylenol Extra Strength) apixaban 5 mg tablet 5 mg PO BID 09/13/21 10/11/24 History potassium chloride 20 mEq 20 meq PO DAILY 05/13/22 Unknown History tablet,extended release(part/cryst) hydrochlorothiazide 25 mg tablet 25 mg PO DAILY #90 tabs 05/14/23 Unknown Rx gabapentin 100 mg capsule 100 mg PO BID 08/02/24 10/11/24 History metoprolol succinate 25 mg 100 mg PO DAILY 08/02/24 10/11/24 History tablet,extended release 24 hr diltiazem HCl 120 mg 240 mg (2 x 120 mg) PO QAM #180 09/08/24 10/11/24 Rx capsule,extended release 24 hr, caps controlled mirtazapine 7.5 mg tablet 7.5 mg PO QHS #90 tabs 09/14/24 Unknown Rx venlafaxine 150 mg 150 mg PO DAILY 90 days #90 caps 09/14/24 10/11/24 Rx capsule,extended release 24 hr venlafaxine 75 mg capsule,extended 75 mg PO DAILY #90 caps 09/14/24 10/11/24 Rx release 24 hr clonazepam 1 mg tablet 1 mg PO TID PRN PRN anxiety 10/30/24 Unknown History tizanidine 4 mg tablet 1 mg PO DAILY PRN PRN muscle spasm 10/30/24 Unknown History Allergy/AdvReac Type Severity Reaction Status Date / Time codeine Allergy Rash Verified 10/30/24 19:52 Penicillins (PCN) Allergy Rash Verified 10/30/24 19:52 Family History Mother Atrial fibrillation Diabetes Heart disease Parkinson disease Father Atrial fibrillation CVA (cerebral vascular accident) Diabetes Heart disease Cancer lung cancer with mets to spine Brother CVA (cerebral vascular accident) Cancer bladder cancer Brother Cancer lung cancer Surgical History History of right breast biopsy history removal bladder tumors History of laparoscopic cholecystectomy Social History Smoking Status: Never smoker alcohol intake: never substance use type: does not use what type of physical activity do you participate in: walking and other details: silver sneakers ROS ROS ED Constitutional Constitutional ED: Denies chills or fever(s) Cardiovascular Cardiovascular: Reports palpitations; Denies chest pain Respiratory/Chest Respiratory/Chest: Reports dyspnea; Denies cough Gastrointestinal Gastrointestinal: Denies nausea or vomiting Musculoskeletal Musculoskeletal: Denies arthralgias or myalgias Neurologic Neurologic: Denies weakness Hematologic/Lymphatic Hematologic/Lymphatic: Reports easy bleeding, easy bruising and other Details: On Eliquis EXAM Physical Exam Const Vital Signs: 10/30/24 19:44 10/30/24 20:42 10/30/24 20:44 Temperature 99.3 F H Temperature Source Oral Pulse Rate 164 H 155 H Pulse Rate [1 (Initial Baseline)] Pulse Rate [2] Pulse Rate [3] Pulse Rate [4] Respiratory Rate 19 H 18 Respiratory Rate [1 (Initial Baseline)] Respiratory Rate [2] Respiratory Rate [3] Respiratory Rate [4] Blood Pressure 179/88 H 126/79 H Blood Pressure [1 (Initial Baseline)] Blood Pressure [4] Blood Pressure Mean 118 94 Pulse Ox 96 95 96 Oxygen Delivery Method Room Air Room Air Room Air Oxygen Delivery Method [1 (Initial Baseline)] Oxygen Delivery Method [2] Oxygen Delivery Method [3] Oxygen Delivery Method [4] EtCo2 (Normal 35-45 , high quality CPR 10-20 & ROSC>/=40mmHg EtCo2 (Normal 35-45 , high quality CPR 10-20 & ROSC>/=40mmHg [1 (Initial Baseline)] EtCo2 (Normal 35-45 , high quality CPR 10-20 & ROSC>/=40mmHg [2] EtCo2 (Normal 35-45 , high quality CPR 10-20 & ROSC>/=40mmHg [3] EtCo2 (Normal 35-45 , high quality CPR 10-20 & ROSC>/=40mmHg [4] 10/30/24 21:00 10/30/24 22:00 10/30/24 22:07 Temperature 98.4 F Temperature Source Pulse Rate 161 H 146 H 137 H Pulse Rate [1 (Initial Baseline)] Pulse Rate [2] Pulse Rate [3] Pulse Rate [4] Respiratory Rate 18 18 17 Respiratory Rate [1 (Initial Baseline)] Respiratory Rate [2] Respiratory Rate [3] Respiratory Rate [4] Blood Pressure 149/96 H 116/89 H 116/89 H Blood Pressure [1 (Initial Baseline)] Blood Pressure [4] Blood Pressure Mean 113 98 Pulse Ox 97 97 97 Oxygen Delivery Method Room Air Room Air Room Air Oxygen Delivery Method [1 (Initial Baseline)] Oxygen Delivery Method [2] Oxygen Delivery Method [3] Oxygen Delivery Method [4] EtCo2 (Normal 35-45 , high quality CPR 10-20 & ROSC>/=40mmHg 34 EtCo2 (Normal 35-45 , high quality CPR 10-20 & ROSC>/=40mmHg [1 (Initial Baseline)] EtCo2 (Normal 35-45 , high quality CPR 10-20 & ROSC>/=40mmHg [2] EtCo2 (Normal 35-45 , high quality CPR 10-20 & ROSC>/=40mmHg [3] EtCo2 (Normal 35-45 , high quality CPR 10-20 & ROSC>/=40mmHg [4] 10/30/24 22:07 10/30/24 22:10 10/30/24 22:15 Temperature Temperature Source Pulse Rate Pulse Rate [1 (Initial Baseline)] 137 H Pulse Rate [2] 137 H Pulse Rate [3] 140 H Pulse Rate [4] 115 H Respiratory Rate Respiratory Rate [1 (Initial Baseline)] 17 Respiratory Rate [2] 17 Respiratory Rate [3] 18 Respiratory Rate [4] 19 H Blood Pressure Blood Pressure [1 (Initial Baseline)] 116/89 H Blood Pressure [4] 137/81 H Blood Pressure Mean Pulse Ox Oxygen Delivery Method Room Air Room Air Oxygen Delivery Method [1 (Initial Baseline)] Room Air Oxygen Delivery Method [2] Room Air Oxygen Delivery Method [3] Room Air Oxygen Delivery Method [4] Room Air EtCo2 (Normal 35-45 , high quality CPR 10-20 & ROSC>/=40mmHg 36 36 EtCo2 (Normal 35-45 , high quality CPR 10-20 & ROSC>/=40mmHg [1 (Initial Baseline)] 34 EtCo2 (Normal 35-45 , high quality CPR 10-20 & ROSC>/=40mmHg [2] 34 EtCo2 (Normal 35-45 , high quality CPR 10-20 & ROSC>/=40mmHg [3] 34 EtCo2 (Normal 35-45 , high quality CPR 10-20 & ROSC>/=40mmHg [4] 36 10/30/24 22:20 10/30/24 22:25 10/30/24 23:00 Temperature Temperature Source Pulse Rate 108 H Pulse Rate [1 (Initial Baseline)] Pulse Rate [2] Pulse Rate [3] Pulse Rate [4] Respiratory Rate 18 Respiratory Rate [1 (Initial Baseline)] Respiratory Rate [2] Respiratory Rate [3] Respiratory Rate [4] Blood Pressure 146/88 H Blood Pressure [1 (Initial Baseline)] Blood Pressure [4] Blood Pressure Mean 107 Pulse Ox 94 Oxygen Delivery Method Room Air Room Air Room Air Oxygen Delivery Method [1 (Initial Baseline)] Oxygen Delivery Method [2] Oxygen Delivery Method [3] Oxygen Delivery Method [4] EtCo2 (Normal 35-45 , high quality CPR 10-20 & ROSC>/=40mmHg 35 35 EtCo2 (Normal 35-45 , high quality CPR 10-20 & ROSC>/=40mmHg [1 (Initial Baseline)] EtCo2 (Normal 35-45 , high quality CPR 10-20 & ROSC>/=40mmHg [2] EtCo2 (Normal 35-45 , high quality CPR 10-20 & ROSC>/=40mmHg [3] EtCo2 (Normal 35-45 , high quality CPR 10-20 & ROSC>/=40mmHg [4] Positive well nourished and well developed General Appearance ED: well developed and NAD HEENT Reports moist mucous membranes Neck supple and no JVD Chest Wall inspection of chest normal and palpation of chest normal Resp normal respiratory effort and clear to auscultation bilaterally Resp Narrative: No crackles appreciated Cardio no murmurs Rate: tachycardic Rhythm: abnormal rhythm irregularly irregular Peripheral Pulses: pulses 2+ throughout GI normal to inspection, nondistended, normoactive bowel sounds and soft to palpation Extremity normal to inspection General Extremety ED: Negative for edema General Extremity: Negative for edema Neuro oriented x3 Sensorium / Orientation: awake and alert Motor Exam: Negative for general weakness Psych mental status grossly normal Skin no rashes or lesions noted and no wounds MDM MDM MDM Narrative Medical decision making narrative: Patient evaluated for palpitations. She is largely asymptomatic. She is in atrial fibrillation with RVR. Differential includes arrhythmia, ACS, ischemia, fluid overload, infection/pneumonia and electrolyte abnormality. Screening labs including CBC, BMP and troponin largely normal. She does have a mild leukocytosis of 13.9 however chart review shows that she has had a leukocytosis and every labs since March of last year. A week ago she was 13.8. She does not report any infectious symptoms. Chest x-ray reviewed by myself does not show any acute process in radiology interpretation she does have a T5 compression fracture. She is not complain of any associated back pain. As patient has been completely compliant with her anticoagulation will cardiovert her. See procedure note. Patient is discussed with cardioverted with 200 J on first attempt. Did speak with Dr. Cortes who would have her continue taking her metoprolol and diltiazem. Will give her an additional dose of metoprolol tonight for further rate control. Have her continue taking her home medications. Patient will be discharged back to her assisted living. Was given return precautions. She verbalized agreement or stands plan discharged home in stable condition. Lab Data Attestation: I reviewed the patient's lab results. Labs: Laboratory Results - last 24 hr 10/30/24 20:03 WBC 13.9 H RBC 4.63 Hgb 14.6 Hct 43.3 MCV 93.5 MCH 31.5 MCHC 33.7 RDW Std Deviation 51.3 H RDW Coeff of Brittney 14.8 H Plt Count 370 MPV 11.4 Immature Gran % (Auto) 0.400 Neut % (Auto) 68.4 Lymph % (Auto) 21.5 [place] % (Auto) 8.1 Eos % (Auto) 1.0 Baso % (Auto) 0.6 Absolute Neuts (auto) 9.5 H Absolute Lymphs (auto) 3.00 Nucleated RBC % 0 Sodium 138 Potassium 4.0 Chloride 103 Carbon Dioxide 24.0 Anion Gap 11 BUN 24 H Creatinine 0.77 Estim Creat Clear Calc 58.24 Est GFR (MDRD) Af Amer 93 Est GFR (MDRD) Non-Af 77 BUN/Creatinine Ratio 31.1 H Glucose 135 H Calcium 9.6 Troponin I High Sens 16 Radiography Chest X-Ray - ED: 2 View, Read by ED Physician and No Infiltrates Diagnostic Testing: Clinical Impression(s) from Imaging Studies Chest X-Ray 10/30/24 21:00 IMPRESSION: 1. No active cardiopulmonary disease. 2. Vertebral body compression fractures. The T5 fracture was not seen on the previous study. 3. Old healed right 5th rib fracture. Reading Location: [facility] Rhythm Strip Rhythm Strip: A-fib Rate: 140 Ectopy: None EKG Initial EKG: Attestation: I personally reviewed and interpreted this EKG as follows: Interpretation: Atrial Fibrillation Comments: Atrial fibrillation rapid ventricular sponsor rate of 140 bpm Normal axis Normal intervals Mild ST depressions in the inferior lateral leads, likely rate related Follow-up EKG: Attestation: I personally reviewed and interpreted this EKG as follows: Interpretation: Sinus Tachycardia Comments: Sinus tachycardia at a rate of 107 bpm Normal axis Normal intervals Improvement of ST segment changes Management 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 Synchronized cardioversion performed at 200 J. Patient given 40 mg of IV propofol for sedation. She is monitored on end-tidal CO2 and continuous pulse oximetry. She remains hemodynamically stable. She converted to sinus tachycardia after 1 shock. She tolerated well with no immediate complications. Discharge Plan Triage Chief Complaint: Palpitations ED Provider: Nora Solano Dx/Rx/DC Orders Clinical Impression: Atrial flutter with rapid ventricular response Instructions: ED AFIB Prescriptions: No Action losartan 100 mg tablet 100 mg PO DAILY Eliquis 5 mg tablet 5 mg PO BID Tylenol Extra Strength 500 mg powder in packet 500 mg PO Q6H PRN (Reason: fever or pain) potassium chloride 20 mEq tablet,ER particles/crystals 20 meq PO DAILY Patient Comments: TAKE 1 TABLET BY MOUTHCONCE DAILY gabapentin 100 mg capsule 100 mg PO BID metoprolol succinate 25 mg tablet extended release 24 hr 100 mg PO DAILY mirtazapine 7.5 mg tablet 7.5 mg PO QHS Qty: 90 1RF venlafaxine 150 mg capsule,extended release 24hr 150 mg PO DAILY 90 Days Qty: 90 1RF venlafaxine 75 mg capsule,extended release 24hr 75 mg PO DAILY Qty: 90 1RF Rx Instructions: To be taken with 150 mg capsule for total daily dose of 225 mg clonazepam 1 mg tablet 1 mg PO TID PRN PRN (Reason: anxiety) tizanidine 4 mg tablet 1 mg PO DAILY PRN PRN (Reason: muscle spasm) hydrochlorothiazide 25 mg tablet 25 mg PO DAILY Qty: 90 3RF diltiazem HCl 120 mg capsule,ext.rel 24h degradable 240 mg PO QAM Qty: 180 3RF Primary Care Provider: Jaya Jung Chi Referrals: Jonathan Gerard MD [Med Staff - Active Staff] - Jaya Jung Chi, MD [Primary Care Provider] - Activity Restrictions/Additional Instructions: You are given additional dose of metoprolol tonight. Please take your normal evening medications. You are in atrial fibrillation however you had cardioversion tonight and are now back in sinus rhythm. Please call cardiology office tomorrow to make an appointment and see if they would like to make any medication adjustments. At this time and I spoke to cardiology on-call they do not want to make any additional adjustments besides the 1 extra dose of metoprolol you received tonight Print Language: Ethiopian Disposition Disposition: Home, Self Care
== END 2024-10-30 23:55 | disposition home or self-care (01) ==
PROVIDERS: Emergency Provider Emergency Medicine; PCP Family Medicine Geriatric Medicine; Referring Provider Emergency Medicine; Visit Provider Emergency Medicine
DX: I48.92 Unspecified atrial flutter (principal); I48.91 Unspecified atrial fibrillation; E78.5 Hyperlipidemia, unspecified; I10 Essential (primary) hypertension; Z79.01 Long term (current) use of anticoagulants; Z79.899 Other long term (current) drug therapy
CPT/HCPCS: 71046; 80048; 84484; 85025; 92960; 93005; 99285; A4216

== ENCOUNTER → 2024-11-24 | Outpatient (CLI) | payer MEDICARE, BC, SELFPAY ==
--- NOTE | 2024-11-24 15:10 | RAD_ITS ---
PROCEDURE: CHEST PA AND LATERAL REASON FOR EXAM: Wheezing TECHNIQUE: Frontal and lateral views of the chest. COMPARISON: None. FINDINGS: Cardiomediastinal silhouette is within normal limits. No focal consolidation, pleural effusion or sizable pneumothorax. Severe chronic compression fracture of the midthoracic spine. Chronic right rib fracture also noted. RAD/Chest PA and Lateral IMPRESSION: No acute airspace abnormality. Reading Location: [facility]
== END | disposition home or self-care (01) ==
PROVIDERS: PCP Family Medicine Geriatric Medicine; Referring Provider Family Medicine Geriatric Medicine; Visit Provider Family Medicine Geriatric Medicine
DX: R06.2 Wheezing (principal); R68.83 Chills (without fever)
CPT/HCPCS: 71046; 87631

== ENCOUNTER → 2024-12-05 | Outpatient (CLI) | payer MEDICARE, BC, SELFPAY | END | disposition home or self-care (01) | PROVIDERS: PCP Family Medicine Geriatric Medicine; Visit Provider Family Medicine Geriatric Medicine | DX: R68.83 Chills (without fever) (principal) | CPT/HCPCS: 87631 ==

== ENCOUNTER → 2025-01-11 | Outpatient (CLI) | payer MEDICARE, BC, SELFPAY ==
[2025-01-11 12:58] LABS: Absolute Lymphocyte Count 2.22 X10^3/uL (0.83-4.51); Absolute Neutrophil Count 11.2 X10^3/uL (2.0-7.7); Basophil% 0.7 % (0-1); Eosinophil# 0.08 X10^3/uL; Eosinophils% 0.5 % (0-5); Hemoglobin 13.9 g/dL (12.0-15.0); Lymphocyte # 2.22 X10^3/ul (0.83-4.51); Lymphocyte % 15.1 % (19-41); Mean Corp Hgb Conc 33.9 g/dL (32-36); Mean Corpuscular Hgb 32.6 pg (27.0-32.0); Mean Platelet Vol. 10.7 fl (6.2-12.0); Monocyte# 0.96 X10^3/uL; Monocyte% 6.5 % (0-10); NRBC Flagged by Analyzer 0 % (0-5); Neutrophil # 11.23 X10^3/uL (2.7-7.7); Neutrophil % 76.6 % (47-70); Platelet Count 340 K/mm3 (150-450); RBC Distribution Width CV 13.2 % (11.6-14.6); RBC Distribution Width SD 46.4 fl (35.1-43.9); Red Blood Count 4.27 M/mm3 (4.2-5.4); White Blood Count 14.7 K/mm3 (4.4-11.0)
[2025-01-11 13:37] LABS: Vitamin D,25 Hydroxy 33.8 ng/mL (30-100)
[2025-01-11 13:42] LABS: ALB/GLOB Ratio 1.4 RATIO (0.9-2.4); AST(SGOT) 20 U/L (<=31); Alanine Aminotransfer ALT/SGPT 18 U/L (<=34); Alkaline Phosphatase 82 U/L (35-104); Anion Gap 13 (5-15); BUN 13 mg/dL (4-19); BUN/Creat Ratio 20.8 RATIO (10-20); Calcium,Total 10.1 mg/dL (7.6-11.0); Carbon Dioxide 26.7 mmol/L (21.0-32.0); Chloride 102 mmol/L (98-108); Creatinine, Serum 0.64 mg/dL (0.70-1.20); EST Glomerular Filtration Rate 90 (>60); Globulin 2.8 g/dL (2.2-4.2); Glucose 135 mg/dL (70-99); Potassium 4.5 mmol/L (3.3-5.1); Protein, Total 6.8 g/dL (5.9-8.4); Sodium Level 141 mmol/L (133-145); Total Bilirubin 0.23 mg/dL (0.00-1.30)
== END | disposition home or self-care (01) ==
LOC: LAB 11:49
PROVIDERS: PCP Family Medicine Geriatric Medicine; Referring Provider Family Medicine Geriatric Medicine; Visit Provider Family Medicine Geriatric Medicine
DX: E11.65 Type 2 diabetes mellitus with hyperglycemia (principal); E55.9 Vitamin D deficiency, unspecified; I10 Essential (primary) hypertension
CPT/HCPCS: 36415; 80053; 82306; 84443; 85025

== ENCOUNTER 2025-03-11 10:49 | Emergency (ER) | payer MEDICARE, BC, SELFPAY ==
[2025-03-11] VITALS (15 sets, daily range): BP systolic 102–176; BP diastolic 63–101; PULSE 68–139; RESP 12–21; TEMP 36.1–36.4; O2SAT 94–99; BMI 32.3
--- OUTSIDE RECORDS SUMMARY | 2025-03-11 11:21 | XMS RPT_ITS | CCD ---
Author Organization [facility] CliniSyil Care Team Providers Care Hr Receptionist Name Role Phone CAMILA STERLING Unavailable Unavailable Erich, Dr. Jaya Childress Primary Care Provider Erich, Dr. Jaya Childress Referring Provider 1([facility])[phone] Jonathan Gerard Attending Provider 1([facility])[phone] Geoffrey AMALGAMATOR, AMALGAMATOR-C Cabrera Attending Provider Erich, Dr. Jaya Childress Primary Care Provider 1([facility])[phone] Dr. Jonathan Gerard Attending Provider 1([facility])[phone] Erich, Dr. Jaya Childress Referring Provider 1([facility])[phone] Erich, Dr. Jaya Childress Primary Care Provider 1([facility])[phone] Erich, Dr. Jaya Childress Primary Care Provider 1([facility])[phone] Geoffrey ALLEN, TIFFANY-C Cabrera Attending Provider Erich, Dr. Jaya Childress Referring Provider 1([facility])[phone] BONNIE TRINH Primary Care Physician Dr. Jonathan Gerard Attending Provider 1([facility])-[phone] Erich, Dr. Jaya Childress Primary Care Provider Erich, Dr. Jaya Childress Referring Provider Erich, Dr. Jaya Childress Primary Care Provider 1([facility])[phone] Erich, Dr. Jaya Childress Referring Provider 1([facility])[phone] Geoffrey AMALGAMATOR, TIFFANY-C Cabrera Attending Provider RAFAEL Richmond Attending Provider 1([facility])[phone] Erich, Dr. Jaya Childress Primary Care Provider 1([facility])[phone] Erich, Dr. Jaya Childress Referring Provider 1([facility])[phone] Geoffrey AMALGAMATOR, AMALGAMATORMatthieu Austin Attending Provider RAFAEL Richmond Attending Provider Geoffrey AMALGAMATOR, AMALGAMATOR-C Cabrera Referring Provider Geoffrey AMALGAMATOR, AMALGAMATOR-C Cabrera Other Provider [phone] Dr. Jens Christine Attending Provider Darin AMALGAMATOR, AMALGAMATOR-C Jose Chase Attending Provider Erich, Dr. Jaya Childress Primary Care Provider [phone] Erich, Dr. Jaya Childress Referring Provider LUIS TRINH, BENNY Acosta Attending Unavailable ERICH TRINH, DR NICOLE Primary Care Unavailable ERICH TRINH, DR NICOLE Primary Care Unavailable LUIS TRINH, BENNY Acosta Attending Unavailable LUIS TRINH, BENNY Acosta Attending Unavailable ERICH TRINH, DR NICOLE Primary Care Unavailable ERICH TIRNH, DR NICOLE Primary Care Unavailable LUIS TRINH, BENNY Acosta Attending Unavailable Erich, Jaya Chi Primary Care Provider Rosalind Moses PA-C Unavailable Jonathan Gerard MD Unavailable ERICH, JAYA CHI Primary Care Unavailable RERE DUNCAN Attending Unavailable ROSALIND MOSES Referring Unavai lable Erich, Jaya Chi Attending Unavailable Erich, Jaya Chi Primary Care Unavailable Erich, Jaya Chi Referring Unavailable Erich, Jaya Chi Attending Unavailable Erich, Jaya Chi Primary Care Unavailable Erich, Jaya Chi Attending Unavailable Erich, Jaya Chi Primary Care Unavailable Erich, Jaya Chi Referring Unavailable Moe Mccarthy Attending Unavailable Erich, Jaya Chi Primary Care Unavailable Erich, Jaya Chi Primary Care Unavailable Cabrera Hale NP Attending Unavailable Erich, Jaya Chi Referring Unavailable Erich, Jaya Chi Attending Unavailable Erich, Jaya Chi Primary Care Unavailable Erich, Jaya Chi Referring Unavailable Erich, Jaya Chi Attending Unavailable Erich, Jaya Chi Primary Care Unavailable Erich, Jaya Chi Primary Care Unavailable Erich, Jaya Chi Attending Unavailable Erich, Jaya Chi Primary Care Unavailable Jonathan Gerard Attending Unavailable Jonathan Gerard Referring Unavailable Nora Solano Referring Unavailable Nora Solano Attending Unavailable Erich, Jaya Chi Primary Care Unavailable Karl Villar Referring Unavailable Karl Villar Attending Unavailable Erich, Jaya Chi Primary Care Unavailable Moe Mccarthy Attending Unavailable Erich, Jaya Chi Primary Care Unavailable Erich, Jaya Chi Primary Care Unavailable Rosalind Atkins Attending Unavail able Erich, Jaya Chi Referring Unavailable Erich, Jaya Chi Referring Unavailable Erich, Jaya Chi Primary Care Unavailable Rosalind Atkins Attending Unavail able Erich, Jaya Chi Primary Care Unavailable Meo Mccarthy Attending Unavailable Erich, Jaya Chi Primary Care Unavailable Moustapha, Lindside Attending Unavailable Erich, Jaya Chi Primary Care Unavailable Geoffrey ALLEN, Cabrera Attending Unavailable Sabra Arias Attending Unavailable Erich, Jaya Chi Primary Care Unavailable Geoffrey ALLEN, Cabrera Referring Unavailable Jens Christine Attending Unavailable Erich, Jaya Chi Primary Care Unavailable Moustapha, Jonathan Consulting Unavailable Moustapha, Lindside Referring Unavailable Erich, Jaya Chi Primary Care Unavailable Moustapha, Lindside Referring Unavailable Moustapha, Lindside Attending Unavailable Moustapha, Jonathan Consulting Unavailable Erich, Jaya Chi Primary Care Unavailable Moe Mccarthy Attending Unavailable Jose Webster NP Attending Unavailable Erich, Jaya Chi Primary Care Unavailable Erich, Jaya Chi Referring Unavailable Erich, Jaya Chi Primary Care Unavailable Geoffrey AMALGAMATOR, Cabrera Referring Unavailable Geoffrey ALLEN, Cabrera Attending Unavailable Erich, Jaya Chi Primary Care Unavailable Geoffrey ALLEN, Cabrera Referring Unavailable Geoffrey ALLEN, Cabrera Attending Unavailable Allergies Allergy Classification Reported Allergen(s) Allergy Type Date of Onset Reaction(s) Facility (3 sources) acetaminophen / HYDROcodone; Translations: [HYDROCODONE-ACET AMINOPHEN] Drug Allergy 3 Mental Status Change [facility] Repository (20 sources) codeine; Translations: [CODEINE] Drug Allergy 3 Mental Status Change [facility] Repository (17 sources) Penicillins; Translations: [PENICILLINS] Propensity to adverse reactions to drug (disorder) 3 Hives [facility] Repository (3 sources) Penicillin; Translations: [penicillin] Drug Allergy [facility] (3 sources) penicillin G benzathine / penicillin G procaine; Translations: [benzathine penicillin-procai ne penicillin] Drug Allergy Unknown [address] Urology Medications Current Medications Medication Drug Class(es) Dates Sig (Normalized) Sig (Original) Acetaminophen (Tylenol Extra Strength) 500 mg powder in packet (13 sources) Start: 09-13-2021 take 500 mg by mouth every six hours Acetaminophen (Tylenol Extra Strength) 500 mg powder in packet Active 500 MG PO EVERY 6 HOURS September 13, 2021 11:35am Start: 09-13-2021 take 500 mg by mouth every six hours Acetaminophen (Tylenol Extra Strength) 500 mg powder in packet Active 500 MG PO EVERY 6 HOURS September 13, 2021 12:00am Start: 09-13-2021 take 500 mg by mouth every six hours Acetaminophen (Tylenol Extra Strength) 500 mg powder in packet Active 500 MG PO EVERY 6 HOURS September 13, 2021 1:00am amiodarone hydrochloride 200 mg oral tablet (20 sources) Antiarrhythmic Start: 11-06-2022 take 100 mg by mouth once daily Amiodarone Active 100 MG PO DAILY November 06, 2022 1:14pm Start: 08-19-2017 End: 12-28-2024 amiodarone 200 mg oral table t 0 Refill(s) Start Date: 05/21/22 Status: Ordered Start: 08-19-2017 End: 09-08-2017 Amiodarone Discontinued 200 MG PO TWICE A DAY August 19, 2017 1:00am September 08, 2017 4:32pm take 200 BID for 2 more days, after which begin 200 qd amLODIPine 5 mg oral tablet (20 sources) Dihydropyridine Calcium Channel Penny Start: 05-13-2022 take 5 mg by mouth once daily Amlodipine Active 5 MG PO DAILY May 13, 2022 4:16pm Start: 02-03-2022 End: 05-13-2022 take 10 mg by mouth once daily Amlodipine Discontinued 10 MG PO DAILY March 19, 2022 11:17am May 13, 2022 4:17pm Start: 09-30-2021 End: 02-03-2022 take 1 tablet by mouth once daily Amlodipine (Norvasc) 5 mg tablet Discontinued 5 MG PO DAILY January 20, 2022 3:07pm February 03, 2022 1:25pm Start: 08-30-2020 amLODIPine 2.5 mg oral tablet Dose : 2.5 mg = 1 tab(s), Oral, qHS, # 30 tab(s), 0 Refill(s) Start Date: 08/30/20 Status: Ordered apixaban 5 mg oral tablet (17 sources) Factor Xa Inhibitor Start: 10-15-2024 take 1 tablet by mouth twice daily ELIQUIS 5 mg tab(s) Take 5 mg by mouth two times a day. 10/15/2024 Active Start: 09-13-2021 Eliquis 5 mg o ral tablet 0 Refill(s), 94.4 Start Date: 05/21/22 Status: Ordered aspirin 81 mg delayed release oral tablet (17 sources) Platelet Aggregation Inhibitor, Nonsteroidal Anti-inflammatory Drug Start: 08-08-2017 End: 12-28-2024 aspirin 81 mg oral delayed release tablet Dose : 81 mg = 1 tab(s), Oral, Daily, 0 Refill(s) Start Date: 01/02/21 Status: Ordered atorvastatin 40 mg oral tablet (20 sources) HMG-CoA Reductase Inhibitor Start: 08-16-2018 End: 09-12-2021 atorvastatin 40 mg oral tablet Dose : 40 mg = 1 tab(s), Oral, qHS, # 30 tab(s), 0 Refill(s) Start Date: 08/30/20 Status: Ordered Start: 01-27-2013 End: 12-28-2024 take 80 mg by mouth at bedtime Atorvastatin Discontinu ed 80 MG PO AT BEDTIME August 08, 2017 1:00am September 08, 2017 4:33pm azithromycin 250 mg oral tablet (5 sources) Macrolide Antimicrobial Start: 11-14-2022 Azithromycin Active 0 PO .COMPLEX November 14, 2022 1:00am take 500 mg today (day 1), then 250 mg for 4 days (days 2-5) PO baclofen 10 mg oral tablet (1 source) gamma-Aminobutyric Acid-ergic Agonist Start: 10-24-2024 take 1 tablet by mouth once daily at bedtime baclofen 10 mg tablet Take 10 mg by mouth daily at bedtime. 10/24/2024 Active benzonatate 100 mg oral capsule (5 sources) Non-narcotic Antitussive Start: 11-14-2022 take 200 mg by mouth three times daily Benzonatate Active 200 MG PO THREE TIMES A DAY November 14, 2022 1:00am bifidobacterium infantis 4 mg oral capsule (1 source) take 2 capsules by mouth twice daily Bifidobacterium Infantis (ALIGN, B.INFANTIS,) 4 mg cap Take 2 capsules by mouth two times a day. Active busPIRone hydrochloride 10 mg oral tablet (16 sources) Start: 08-30-2020 busPIRone 10 mg oral tablet Dose : 10 mg = 1 tab(s), Oral, QID, # 90 tab(s), 0 Refill(s) Start Date: 08/30/20 Status: Ordered Start: 08-16-2018 End: 10-24-2019 take 10 mg by mouth three times daily Buspirone Discontinued 10 MG PO THREE TIMES A DAY August 16, 2018 1:00am October 24, 2019 5:18pm cholecalciferol 0.125 mg oral capsule (20 sources) Vitamin D Start: 12-12-2021 take 125 ug by mouth once daily Cholecalciferol (Vitamin D3) Active 125 MCG PO DAILY December 12, 2021 12:00am Start: 10-24-2019 End: 09-13-2021 take 125 ug by mouth once daily Cholecalciferol (Vitamin D3) Discontinued 125 MCG PO DAILY October 24, 2019 1:00am September 13, 2021 11:34am End: 12-28-2024 take 1 capsule by mouth once daily Cholecalciferol, Vitamin D3, 50 mcg (2,000 unit) cap Take 2,000 Units by mouth once daily. 12/28/2024 Discontinued (Other) take 1 tablet by kayla th once daily cholecalciferol (VITAMIN D-3) 5,000 unit tab Take 5,000 Units by mouth once daily. With K Active clonazePAM 1 mg oral tablet (20 sources) Benzodiazepine Start: 02-03-2022 take 1 mg by mouth four times daily Clonazepam Active 1 MG PO .QID February 03, 2022 1:11pm Start: 09-12-2021 End: 02-03-2022 take 1 mg by mouth three times daily Clonazepam Discontinued 1 MG PO THREE TIMES A DAY September 12, 2021 1:00am February 03, 2022 1:11pm Start: 08-30-2020 clonazepam 1 m g oral disint tablet Dose : 1 mg = 1 tab(s), Oral, QID, 0 Refill(s), 93.2 Start Date: 08/30/20 Status: Ordered 24 hr dilTIAZem hydrochloride 120 mg extended release oral capsule (1 source) Calcium Channel Penny Start: 09-08-2024 take 1 capsule by mouth twice daily DILT-XR 120 mg 24 hr capsule Take 120 mg by mouth two times a day. 09/08/2024 Active doxepin hydrochloride 100 mg oral capsule (5 sources) Tricyclic Antidepressant Start: 11-06-2022 take 100 mg by mouth at bedtime Doxepin Active 100 MG PO AT BEDTIME November 06, 2022 1:00am escitalopram 20 mg oral tablet (16 sources) Serotonin Reuptake Inhibitor Start: 01-02-2021 End: 05-13-2022 Lexapro 20 mg oral tablet Dose : 20 mg = 1 tab(s), Oral, qDay, # 30 tab(s), 0 Refill(s) Start Date: 01/02/21 Status: Ordered gabapentin 100 mg oral capsule (2 sources) Anti-epileptic Agent take 1 capsule by mouth three times daily gabapentin (NEURONTIN) 100 mg capsule Take 100 mg by mouth three times a day. Active End: 12-28-2024 take 1 tablet by mouth twice daily Gabapentin 100 mg tab Take 100 mg by mouth two times a day. 12/28/2024 Discontinued (Other) hydroCHLOROthiazide 25 mg oral tablet (9 sources) Thiazide Diuretic Start: 05-13-2022 take 25 mg by mouth once daily Hydrochlorothiazide Active 25 MG PO DAILY May 13, 2022 12:00am hydroCHLOROthiazide 12.5 mg / losartan potassium 100 mg oral tablet (20 sources) Thiazide Diuretic, Angiotensin 2 Receptor Penny Start: 04-10-2021 hydrochlorothiazide-los paulino 12.5-100 mg oral tablet 0 Refill(s) Start Date: 04/10/21 Status: Ordered Start: 08-22-2019 End: 09-12-2021 Losartan-Hydrochlorothiazide Discontinued 1 EACH PO DAILY August 22, 2019 1:00am September 12, 2021 9:18pm Start: 08-08-2017 End: 09-08-2017 take 1 tablet by mouth once daily Losartan-Hydrochlorothiazide Discontinue d 1 TABLET PO DAILY August 08, 2017 1:00am September 08, 2017 4:31pm Start: 06-19-2017 End: 12-28-2024 Losartan-Hydrochlorothiazide 100-12.5 mg per tablet 06/19/2017 12/28/2024 Discontinued (Other) losartan potassium 100 mg oral tablet (17 sources) Angiotensin 2 Receptor Penny Start: 10-15-2024 take 1 tablet by mouth once daily losartan (COZAAR) 100 mg tablet Take 100 mg by mouth once daily. 10/15/2024 Active Start: 09-12-2021 losartan 100 m g oral tablet 0 Refill(s) Start Date: 05/21/22 Status: Ordered mecobalamin 5 mg oral lozenge (14 sources) Start: 12-12-2021 take 5000 ug by mouth once daily Mecobalamin (Vitamin B12) Active 5000 MCG PO DAILY December 12, 2021 12:00am allow to dissolve in mouth OR may chew lightly before swallowing End: 12-28-2024 take 1000 ug by mouth once daily mecobalamin, vitamin B12, 1,000 mcg chew Take 1,000 mcg by mouth once daily. 12/28/2024 Discontinued (Other) melatonin 3 mg oral capsule (5 sources) Start: 11-14-2022 take 3 mg by mouth at bedtime Melatonin Active 3 MG PO BEDTIME November 14, 2022 1:00am 24 hr metoprolol succinate 25 mg extended release oral tablet (20 sources) beta-Adrenergic Penny Start: 02-03-2022 End: 04-17-2022 take 25 mg by mouth once daily Metoprolol Succinate Active 25 MG PO DAILY April 17, 2022 11:16am Start: 02-03-2022 End: 02-03-2022 take 50 mg by mouth once daily Metoprolol Succinate Di scontinued 50 MG PO DAILY February 03, 2022 1:24pm February 03, 2022 1:25pm Start: 09-13-2021 End: 12-12-2021 take 100 mg by mouth once daily Metoprolol Succinate Discontinued 100 MG PO DAILY September 13, 2021 1:00am December 12, 2021 4:24pm Start: 08-22-2019 End: 02-03-2022 metoprolol succinate 50 mg o ral TABLET extended release Dose : 50 mg = 1 tab(s), Oral, qAM, Do not crush or chew (controlled release), # 30 tab(s), 0 Refill(s) Start Date: 08/30/20 Status: Ordered Start: 08-08-2017 End: 09-08-2017 take 50 mg by mouth once daily Metoprolol Succinate Di scontinued 50 MG PO DAILY August 08, 2017 1:00am September 08, 2017 4:33pm Start: 06-19-2017 take 1 tablet by kayla th twice daily metoprolol succinate ER (TOPROL XL) 50 mg 24 hr tablet Take 50 mg by mouth two times a day. 06/19/2017 Active mirtazapine 7.5 mg oral tablet (1 source) Start: 09-20-2024 take 1 tablet by mouth every twenty-four hours as needed Mirtazapine (REMERON) 7.5 mg tablet Take 7.5 mg by mouth at bedtime as needed. 09/20/2024 Active multivit with minerals/lutein (MULTIVITAMIN 50 PLUS ORAL) (1 source) take 1 tablet by mouth once daily multivit with minerals/lutein (MULTIVITAMIN 50 PLUS ORAL) Take 1 tablet by mouth once daily. Active Multivitamin preparation (13 sources) Start: 12-12-2021 take 1 tablet by mouth once daily Multivitamin Active 1 TABLET PO DAILY December 12, 2021 3:51pm Start: 12-12-2021 End: 11-06-2022 take 1 tablet by mouth once daily Multivitamin Discontinued 1 TABLET PO DAILY December 12, 2021 12:00am November 06, 2022 12:40pm Start: 12-12-2021 End: 11-06-2022 take 1 tablet by mouth once daily Multivitamin Discontinued 1 TABLET PO DAILY December 11, 2021 11:00pm November 06, 2022 11:40am Start: 12-12-2021 take 1 tablet by kayla th once daily Multivitamin Active 1 TABLET PO DAILY December 11, 2021 11:00pm Start: 12-12-2021 take 1 tablet by kayla th once daily Multivitamin Active 1 TABLET PO DAILY December 12, 2021 12:00am potassium chloride 20 meq or al tablet (20 sources) Start: 05-21-2022 potassium chlo ride 20 mEq oral tablet, extended release 0 Refill(s) Start Date: 05/21/22 Status: Ordered Start: 05-13-2022 take 20 mEq by mouth once branden y Potassium Chloride Active 20 MEQ PO DAILY May 13, 2022 12:00am Start: 08-19-2017 potassium chlo ride ER (K-DUR, KLOR-CON) 20 mEq tablet Take 20 mEq by mouth two times a day. 08/19/2017 Active Start: 08-19-2017 End: 09-08-2017 take 40 mEq by mouth twice daily at mealtime Potassium Chloride Discontinued 40 MEQ PO TWICE DAILY WITH MEALS 60 August 19, 2017 1:00am September 08, 2017 4:34pm tiZANidine 4 mg oral capsule (18 sources) Central alpha-2 Adrenergic Agonist Start: 08-03-2017 End: 12-28-2024 take 4 mg by mouth twice daily Tizanidine Active 4 MG PO TWICE A DAY August 08, 2017 1:00am Start: 01-27-2013 End: 12-28-2024 tiZANidine 4 mg oral capsule Dose : 4 mg = 1 cap(s), Oral, TID, PRN BACK SPASMS, # 90 cap(s), 0 Refill(s) Start Date: 08/30/20 Status: Ordered 24 hr venlafaxine 150 mg extended release oral capsule (13 sources) Serotonin and Norepinephrine Reuptake Inhibitor Start: 09-19-2024 take 1 capsule by mouth once daily venlafaxine ER (EFFEXOR XR) 150 mg 24 hr capsule Take 150 mg by mouth once daily. 09/19/2024 Active Start: 09-19-2024 take 1 capsule by [facility] once daily venlafaxine ER (EFFEXOR XR) 75 mg 24 hr capsule Take 75 mg by mouth once daily. 09/19/2024 Active Start: 05-13-2022 End: 11-14-2022 venlafaxine 75 mg oral capsu le, extended release 0 Refill(s) Start Date: 05/21/22 Status: Ordered vitamin b12 5 mg disintegrating oral tablet (1 source) Vitamin B12 take 1 tablet by mouth once daily cyanocobalamin, vitamin B-12, 5,000 mcg ODT Take 1 tablet by mouth once daily. Active Vitamin B12 1000 mcg oral tablet (3 sources) Start: 08-30-2020 Vitamin B12 1000 mcg oral tablet Dose : 1,000 mcg = 1 tab(s), Oral, qDay, # 90 tab(s), 0 Refill(s) Start Date: 08/30/20 Status: Ordered Vitamin D3 1000 intl units (25 mcg) oral tablet, chewable (3 sources) Start: 08-30-2020 Vitamin D3 1000 intl units (25 mcg) oral tablet, chewable Dose : 1,000 International_Unit = 1 tab(s), Chewed, qDay, # 50 tab(s), 0 Refill(s) Start Date: 08/30/20 Status: Ordered Completed/Discontinued Medications Medication Drug Class(es) Dates Sig (Normalized) Sig (Original) acetaminophen 325 mg / HYDROcodone bitartrate 5 mg oral tablet (13 sources) Opioid Agonist Start: 08-30-2019 End: 09-14-2019 take 1 tablet by mouth every four hours as needed Hydrocodone-Acetami nophen Discontinued 1 TABLET PO EVERY 4 HOURS NEEDED 16 04August 30, 2019 September 14, 2019 1:10am [id number] 200 actuat albuterol 0.09 mg/actuat metered dose inhaler (1 source) beta2-Adrenergic Agonist Start: 09-02-2024 End: 12-28-2024 albuterol HFA (PROVENTIL HFA, VENTOLIN HFA) 90 mcg/actuation inhaler 09/02/2024 12/28/2024 Discontinued (Other) ALPRAZolam 1 mg oral tablet (14 sources) Benzodiazepine Start: 01-27-2013 End: 12-28-2024 take 1 mg by mouth twice daily as needed Alprazolam Discontinued 1 MG PO TWICE DAILY NEEDED August 16, 2018 1:00am September 12, 2021 9:21pm biotin 2.5 mg oral capsule (13 sources) Start: 08-08-2017 End: 09-08-2017 take 2500 ug by mouth once daily Biotin Discontinued 2500 MCG PO DAILY August 08, 2017 1:00am September 08, 2017 4:33pm ciprofloxacin 500 mg oral tablet (13 sources) Quinolone Antimicrobial Start: 08-18-2018 End: 12-23-2018 take 500 mg by mouth twice daily Ciprofloxacin Hcl Discontinued 500 MG PO TWICE A DAY August 18, 2018 1:00am December 23, 2018 8:48am cloNIDine hydrochloride 0.1 mg oral tablet (1 source) Central alpha-2 Adrenergic Agonist Start: 01-27-2013 End: 12-28-2024 take 1 tablet by mouth twice daily cloNIDine 0.1 mg tablet Take 1 tablet by mouth twice daily. 0 01/27/2013 12/28/2024 Discontinued (Other) ergocalciferol 1.25 mg oral capsule (13 sources) Provitamin D2 Compound Start: 08-08-2017 End: 10-24-2019 Ergocalciferol (Vitamin D2) Discontinued 70800 UNITS PO VASQUEZ August 08, 2017 1:00am October 24, 2019 5:18pm furosemide 40 mg oral tablet (8 sources) Loop Diuretic Start: 05-13-2022 End: 05-13-2022 take 40 mg by mouth once daily Furosemide Discontinued 40 MG PO DAILY May 13, 2022 12:00am May 13, 2022 4:17pm lisinopril 20 mg oral tablet (1 source) Angiotensin Converting Enzyme Inhibitor Start: 01-27-2013 End: 12-28-2024 take 1 tablet by mouth once daily lisinopril (ZESTRIL) 20 mg tablet Take 1 tablet by mouth once daily. 01/27/2013 12/28/2024 Discontinued (Other) PARoxetine hydrochloride 40 mg oral tablet (13 sources) Serotonin Reuptake Inhibitor Start: 08-22-2019 End: 09-12-2021 take 40 mg by mouth once daily Paroxetine Hcl Discontinued 40 MG PO DAILY August 22, 2019 1:00am September 12, 2021 9:20pm phenazopyridine hydrochloride 200 mg oral tablet (13 sources) Start: 08-30-2019 End: 09-14-2019 take 200 mg by mouth three times daily as needed Phenazopyridine Discontinued 200 MG PO 3 TIMES DAILY NEEDED 30 7 August 30, 2019 1:00am September 14, 2019 1:10am sulfamethoxazole 800 mg / trimethoprim 160 mg oral tablet (13 sources) Dihydrofolate Reductase Inhibitor Antibacterial, Sulfonamide Antimicrobial Start: 08-30-2019 End: 09-14-2019 take 1 tablet by mouth twice daily Sulfamethoxazole-Tr imethoprim Discontinued 1 TABLET PO TWICE A DAY 6 3 August 30, 2019 1:00am September 14, 2019 1:09am trimethoprim 100 mg oral tablet (5 sources) Dihydrofolate Reductase Inhibitor Antibacterial Start: 04-10-2021 End: 09-05-2023 trimethoprim 100 mg oral tablet Dose : 100 mg = 1 tab(s), Oral, q12h, # 4 tab(s), 0 Refill(s), Pharmacy: [facility] [place], 160, cm, 05/21/22 10:45:00 EDT, Height, 94, kg, 05/21/22 10:45:00 EDT, Dosing Weight Start Date: 09/03/23 Stop Date: 09/05/23 Status: Ordered zolpidem tartrate 10 mg oral tablet (17 sources) gamma-Aminobutyric Acid-ergic Agonist Start: 01-27-2013 End: 12-28-2024 zolpidem 10 mg oral tablet Dose : 10 mg = 1 tab(s), Oral, qHS, PRN as needed for sleep, 0 Refill(s), 93.2 Start Date: 08/30/20 Status: Ordered Problems Active Problems Problem Classification Problem Date Documented Date Episodic/Chronic Anxiety disorders (1 source) Anxiety disorder, unspecified; Translations: [Anxiety disorder, unspecified] Onset: 03-07-20 Chronic Cancer of bladder (9 sources) Malignant tumor of urinary bladder; Translations: [Primary malignant neoplasm of bladder] Onset: 08-31-20 24 09-25-2020 Chronic Cancer of bladder (13 sources) H/O: malignant neoplasm; Translations: [Personal history of malignant neoplasm of bladder] 08-30-2019 Episodic Cardiac dysrhythmias (20 sources) Atrial fibrillation with rapid ventricular response; Translations: [Unspecified atrial fibrillation] Onset: 08-11-20 Chronic Diabetes mellitus with complications (1 source) Type 2 diabetes mellitus with hyperglycemia; Translations: [Type 2 diabetes mellitus with hyperglycemia] Onset: 01-17-20 Chronic Disorders of lipid metabolism (20 sources) Hyperlipidemia; Translations: [Hyperlipidemia, unspecified] Chronic Essential hypertension (20 sources) Essential hypertension; Translations: [Essential (primary) hypertension] Onset: 04-29-20 Chronic Malaise and fatigue (5 sources) Fatigue; Translations: [Other fatigue] 11-14-2022 Episodic Mood disorders (1 source) Major depressive disorder, single episode, unspecified; Translations: [Major depressive disorder, single episode, unspecified] Onset: 03-07-20 Chronic Other aftercare (5 sources) Drug therapy finding; Translations: [Other prison (current) drug therapy] 11-06-2022 Episodic Other aftercare (3 sources) Long-term current use of anticoagulant; Translations: [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] Onset: 12-05-19 25 03-12-2023 Episodic Other aftercare (1 source) 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; Translations: [Anticoagulant long-term use] Onset: 12-05-19 Episodic Other circulatory disease (4 sources) H/O: hypertension; Translations: [Personal history of other diseases of the circulatory system] Onset: 12-29-1903-07-2022 Episodic Other diseases of bladder and urethra (13 sources) Bladder problem; Translations: [Other specified disorders of bladder] 09-12-2021 Chronic Other gastrointestinal disorders (5 sources) Diarrhea; Translations: [Diarrhea, unspecified] 11-14-2022 Episodic Other injuries and conditions due to external causes (1 source) Closed injury of head; Translations: [Unspecified injury of head, initial encounter] 03-12-2023 Episodic Other lower respiratory disease (5 sources) Dyspnea; Translations: [Shortness of breath] 11-14-2022 Episodic Other lower respiratory disease (1 source) Wheezing; Translations: [Wheezing] Onset: 12-09-19 Episodic Other non-traumatic joint disorders (8 sources) Ankle edema; Translations: [Effusion, unspecified ankle] 05-13-2022 Episodic Other non-traumatic joint disorders (2 sources) Effusion, unspecified ankle; Translations: [Effusion of joint, ankle and foot] Episodic Other nutritional; endocrine; and metabolic disorders (3 sources) Body mass index 30+ - obesity 03-07-2022 Chronic Other nutritional; endocrine; and metabolic disorders (3 sources) History of hypercholesterolemia 03-07-2022 Episodic Other nutritional; endocrine; and metabolic disorders (3 sources) Overweight 03-07-2022 Episodic Other skin disorders (13 sources) Lesion of breast; Translations: [Other specified disorders of the skin and subcutaneous tissue] 09-12-2021 Episodic Other skin disorders (13 sources) Lesion of skin of face; Translations: [Disorder of the skin and subcutaneous tissue, unspecified] 09-12-2021 Episodic Residual codes; unclassified (3 sources) Insomnia 03-07-2022 Episodic Residual codes; unclassified (3 sources) Other specified personal risk factors, not elsewhere classified; Translations: [Other specified personal history presenting hazards to health] Onset: 12-05-1912-26-2024 Episodic Residual codes; unclassified (1 source) Chills (without fever); Translations: [Chills (without fever)] Onset: 12-16-19 Episodic Septicemia (except in labor) (13 sources) Sepsis; Translations: [Sepsis, unspecified organism] 09-12-2021 Episodic Superficial injury; contusion (1 source) Hematoma of occipital scalp; Translations: [Contusion of scalp, initial encounter] 03-12-2023 Episodic Syncope (13 sources) Near syncope; Translations: [Syncope and collapse] 09-12-2021 Episodic Urinary tract infections (13 sources) Acute pyelonephritis; Translations: [Acute pyelonephritis] 09-12-2021 Episodic Past or Other Problems Problem Classification Problem Date Documented Date Episodic/Chronic Acute bronchitis (11 sources) Acute bronchitis; Translations: [Acute bronchitis, unspecified] Onset: 10-31-2024 11-14-2022 Episodic Cardiac dysrhythmias (20 sources) Bradycardia; Translations: [Bradycardia, unspecified] Onset: 10-20-2024 Episodic Complications of surgical procedures or medical care (16 sources) Atrial fibrillation; Translations: [Other postprocedural complications and disorders of the circulatory system, not elsewhere classified] Onset: 08-11-2017 Episodic Other aftercare (5 sources) 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; Translations: [Long-term (current) use of other medications] Onset: 10-20-2024 11-06-2022 Episodic Other lower respiratory disease (1 source) Other forms of dyspnea; Translations: [Other forms of dyspnea] Onset: 09-12-2024 Episodic Other screening for suspected conditions (not mental disorders or infectious disease) (1 source) Patient encounter status; Translations: [Encounter for screening for malignant neoplasm of colon] Onset: 01-27-2013 01-27-2013 Episodic Spondylosis; intervertebral disc disorders; other back problems (6 sources) Chronic pain; Translations: [Cervicalgia] Onset: 06-07-2024 11-14-2022 Episodic Unclassified (8 sources) history removal bladder tumors 04-18-2022 Results Test Name Value Interpretation Reference Range Facility MR/Benjamín 03-01-2025 MR/BMS.[facility] [address] [place] [address], [address] [place] [address] OFFICE VISIT Date of Service: 03/01/25 MR#: [id number] Acct: [id number] Name: ITZ VEGAS Rep #: [id number] : 1945 Provider: Dr. Moe Dexter se, DO Age/Sex: 79/F Location[place] [facility] [place] Status: Signed Intake Vital Signs 09/14/24 14:36 01/13/25 07:38 03/01/25 10:33 03/01/25 10:39 Height 5 ft 3 in 5 ft 2 in 5 ft 2 in 5 ft 2 in Weight: 181 lb 3 oz BMI 33.1 BP 137/73 H Blood Pressure Location Lt brachial Position Sitting Respiration 17 Pulse 50 L Pulse Source Monitor BP Intake Visit Reasons: 5mfu Allergies Penicillins (PCN) Allergy (Verified 01/13/25 10:46) Rash Medications ???Medication ???Instructions ???Recorded ???Confirmed ???Type losartan 100 mg tablet 100 mg PO DAILY 09/12/21 03/01/25 History acetaminophen 500 mg oral powder 500 mg PO Q6H PRN fever or pain 03/01/25 History packet (Tylenol Extra Strength) apixaban 5 mg tablet 5 mg PO BID 09/13/21 03/01/25 Hist ory potassium chloride 20 mEq 20 meq PO DAILY 05/13/22 03/01/25 History tablet,extended release(part/cryst) hydrochlorothiazide 25 mg tablet 25 mg PO DAILY #90 tabs 05/14/23 0 03/01/25 Rx gabapentin 100 mg capsule 100 mg PO BID 08/02/24 03/01/25 Hi story diltiazem HCl 120 mg 240 mg (2 x 120 mg) PO QAM #180 03/01/25 Rx capsule,extended release 24 hr, caps controlled mirtazapine 7.5 mg tablet 7.5 mg PO QHS #90 tabs 09/14/24 Rx metoprolol succinate 25 mg 50 mg PO BID 01/13/25 03/01/25 His tory tablet,extended release 24 hr venlafaxine 150 mg 150 mg PO DAILY 90 days #90 caps 0 03/01/25 03/01/25 Rx capsule,extended release 24 hr venlafaxine 75 mg capsule,extended 75 mg PO DAILY #90 caps 03/01/25 03/01/25 Rx release 24 hr Have you fallen in the past year?: Yes PFSH Medical History Atrial fibrillation with rapid ventricular response (08/11/17) Anxiety MDD (major depressive disorder) Osteopenia Gallstones Emotional problems Cancer Arthritis Atrial flutter with rapid ventricular response (08/06/21) Essential hypertension Skin lesion of breast Erythematous bladder mucosa Skin lesion of face History of skin cancer Near syncope Acute pyelonephritis Long-term use of high-risk medication Postoperative atrial fibrillation (08/11/17) HLD (hyperlipidemia) Surgical History History of right breast biopsy history removal bladder tumors History of laparoscopic cholecystectomy Family History Mother Atrial fibrillation Diabetes Heart disease Parkinson disease Father Atrial fibrillation CVA (cerebral vascular accident) Diabetes Heart disease Cancer lung cancer with mets to spine Brother CVA (cerebral vascular accident) Cancer bladder cancer Brother Cancer lung cancer Social History Smoking Status: Never smoker alcohol intake: never substance use type: does not use what type of physical activity do you participate in: walking and other details: casey PALACIOS History of Present Illness History provided by: patient HPI: Itz Vegas is a 79 year old female who presents today for follow up evaluation. Continues to do well and have been feeling great. Still very much enjoying living at [facility] in the assisted living facility. 's health remains somewhat stable. She visits him every day and feeds him lunch and dinner nearly every day. Regularly gets visits from her daughter and calls from her son. Reports that her health as been doing well. Did have a few runs of AFib and did have a cardioversion. Saw a natural resources extension educator who feels things are doing well. Sleep has been very good. Feels like medications are working well. Denies any significant side effects at this time. Denies Si/HI or AVH. Does have her dog, a CavaPoo, who she feels is her best friend. Review of Systems Constitutional Denies: change in sleep pattern Eyes Denies: change in vision or blurry vision Ears, Nose, Mouth, Throat Denies: throat pain, neck pain or change in hearing Cardiovascular Denies: chest pain Respiratory Denies: wheezing Genitourinary Denies: dysuria or urinary frequency Musculoskeletal Reports: back pain, joint pain and muscle weakness; Denies: neck pain Integumentary/Breast Denies: rash Neurological Reports: weakness in extremities; Denies: dizziness or confusion Hematologic/Lymphatic Reports: easy bruising Allergic/Immunologic Denies: wheezing Exam Mental Status Exam - Psych Appearance casually dressed Attitude cooperative Activity/Motor Behavior (more content not included)... Normal [facility] Cardiology Visit Reporton Cardiology Visit Report [facility] [address] [place] [address] OFFICE VISIT Date of Service: 01/13/25 MR#: [id number] Acct: [id number] Name: ITZ VEGAS Rep #: [id number] : 1945 Provider: RAFAEL Her Age/Sex: 79/F Location: [facility] [place] Status: Signed HPI HPI History of Present Illness Details: ITZ VEGAS, is a 79 F who presents to the office today for a cardiovascular follow up visit. She does have a history of hypertension, diabetes, tinnitus, and a previous history of atrial fibrillation which occurred postoperatively. At that time she had an echocardiogram done which was normal and troponins were also noted to be normal. She was discharged on amiodarone and then this was subsequently discontinued. She had apparently been doing well but has recently been under a lot of stress for condition because of her 's health status as well as her dog who suddenly . She noted irregular heartbeats on her apple watch was transmitted and did confirm what appeared to be atrial flutter with a rate of approximately 122 bpm. She was started on Eliquis and Amiodarone. She underwent a stress test 09/30/2021 which was negative for ischemia. An echocardiogram also demonstrated an ejection fraction of 60%, moderate left atrial enlargement and pulm artery systolic pressure of 48 mmHg. A subsequent Holter monitor in November 2021 demonstrated no atrial fibrillation or flutter and an average heart rate of 54 bpm. Her amiodarone was discontinued due to the results of her PFT. At her last OV she was noted to be in atrial flutter. She had a HM this demonstrated 100% Aflutter. Her rate is controlled. She is living at [facility]. Patient was seen by Dr. Duncan in December of 2024. She was noted to be maintaining sinus rhythm. She did undergo a cardioversion in August 2024 and the second in September 2024. It was identified that stress is a trigger for her arrhythmia episodes. It was recommended that if her episodes become more frequent or bothersome that she could be considered for catheter ablation. From a cardiac standpoint, patient is doing well. She does not have any chest discomfort/heaviness/tightnes s. She has lost a few pounds. She does not have any worsening symptoms of shortness of breath. She does not have any orthopnea. She denies PND. She does not have any symptoms of congestive heart failure. She does not have any palpitations that she is aware of. She does not have any lightheadedness or dizziness. She does not have any near-syncope or syncope. She does not have any lower extremity edema. She does not have any symptoms of claudication. 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 Is patient in pain?: No Allergies codeine Allergy (Verified 01/13/25 10:46) Rash Penicillins (PCN) Allergy (Verified 01/13/25 10:46) Rash Medications ???Medication ???Instructions ???Recorded ???Confirmed ???Type losartan 100 mg tablet 100 mg PO DAILY 09/12/21 01/13/25 History acetaminophen 500 mg oral powder 500 mg PO Q6H PRN fever or pain 01/13/25 History packet (Tylenol Extra Strength) apixaban 5 mg tablet 5 mg PO BID 09/13/21 01/13/25 Hist ory potassium chloride 20 mEq 20 meq PO DAILY 05/13/22 01/13/25 History tablet,extended release(part/cryst) hydrochlorothiazide 25 mg tablet 25 mg PO DAILY #90 tabs 05/14/23 0 01/13/25 Rx gabapentin 100 mg capsule 100 mg PO BID 08/02/24 01/13/25 Hi story diltiazem HCl 120 mg 240 mg (2 x 120 mg) PO QAM #180 01/13/25 Rx capsule,extended release 24 hr, caps controlled mirtazapine 7.5 mg tablet 7.5 mg PO QHS #90 tabs 09/14/24 Rx venlafaxine 150 mg 150 mg PO DAILY 90 days #90 caps 1 11/15/23 01/13/25 Rx capsule,extended release 24 hr venlafaxine 75 mg capsule,extended 75 mg PO DAILY #90 caps 09/14/24 01/13/25 Rx release 24 hr clonazepam 1 mg tablet 1 mg PO TID PRN PRN anxiety 01/13/25 History tizanidine 4 mg tablet 1 mg PO DAILY PRN PRN muscle spasm 10/30/24 10/30/24 History metoprolol succinate 25 mg 50 mg PO BID 01/13/25 01/13/25 His tory tablet,extended release 24 hr Ejection fraction %: 65 Have you fallen in the past year?: Yes [facility] Medical History Atrial fibrillation with rapid ventricular response (08/11/17) Anxiety MDD (major depressive disorder) Osteopenia Gallstones Emotional problems Cancer Arthritis Atrial flutter with rapid ventricular (more content not included)... Normal [facility] CBC W/Diff, Automatedon 12-27 Absolute Lymph 2.22 X10 3/uL Normal 0.83-4.51 [facility] Comment on above: Performed By: #### L 501.9520, L506.1001, L500.4050, L100.0100 #### [facility] [address] [place], [place], [id number] Absolute Neut 11.2 X10 3/uL High 2.0-7.7 [facility] Comment on above: Performed By: #### L 501.9520, L506.1001, L500.4050, L100.0100 #### [facility] [address] [place], [address] Basophils/100 WBC (Bld) 0.7 % Normal 0-1 [facility] Comment on above: Performed By: #### L 501.9520, L506.1001, L500.4050, L100.0100 #### [facility] [address] [place], [address] Eosinophils/100 WBC (Bld) 0.5 % Normal 0-5 [facility] Comment on above: Performed By: #### L 501.9520, L506.1001, L500.4050, L100.0100 #### [facility] [address] [place], [address] Erythrocyte distribution width (RBC) [Ratio] 13.2 % Normal 11.6-14.6 [facility] Comment on above: Performed By: #### L 501.9520, L506.1001, L500.4050, L100.0100 #### [facility] [address] [place], [address] Hematocrit (Bld) [Volume fraction] 41.0 % Normal 37-47 [facility] Comment on above: Performed By: #### L 501.9520, L506.1001, L500.4050, L100.0100 #### [facility] [address] [place], [address] Hemoglobin (Bld) [Mass/Vol] 13.9 g/dL Normal 12.0-15.0 [facility] Comment on above: Performed By: #### L 501.9520, L506.1001, L500.4050, L100.0100 #### [facility] [address] [place], [address] IG% 0.600 Normal 0.0-0.9 [facility] Comment on above: Result Comment: IG% - Immature Granulocytes (promyelocytes, myelocytes and metamyelocytes) > 1% indicates that a LEFT SHIFT is Present. Performed By: #### L 501.9520, L506.1001, L500.4050, L100.0100 #### [facility] [address] [place], [address] Lymphocytes/100 WBC (Bld) 15.1 % Low 19-41 [facility] Comment on above: Performed By: #### L 501.9520, L506.1001, L500.4050, L100.0100 #### [facility] [address] [place], [address] MCH (RBC) [Entitic mass] 32.6 pg High 27.0-32.0 [facility] Comment on above: Performed By: #### L 501.9520, L506.1001, L500.4050, L100.0100 #### [facility] [address] [place], [address] MCHC (RBC) [Mass/Vol] 33.9 g/dL Normal 32-36 [facility] Comment on above: Performed By: #### L 501.9520, L506.1001, L500.4050, L100.0100 #### [facility] [address] [place], [address] MCV (RBC) [Entitic vol] 96.0 fL Normal 81-99 [facility] Comment on above: Performed By: #### L 501.9520, L506.1001, L500.4050, L100.0100 #### [facility] [address] [place], [address] Monocytes/100 WBC (Bld) 6.5 % Normal 0-10 [facility] Comment on above: Performed By: #### L 501.9520, L506.1001, L500.4050, L100.0100 #### [facility] [address] [place], [address] Neutrophils/100 WBC (Bld) 76.6 % High 47-70 [facility] Comment on above: Performed By: #### L 501.9520, L506.1001, L500.4050, L100.0100 #### [facility] [address] [place], [address] Nucleated RBC (Bld) [#/Vol] 0 10*3/uL Normal 0-5 [facility] Comment on above: Performed By: #### L 501.9520, L506.1001, L500.4050, L100.0100 #### [facility] [address] [place], [address] Platelet mean volume (Bld) [Entitic vol] 10.7 fL Normal 6.2-12.0 [facility] Comment on above: Performed By: #### L 501.9520, L506.1001, L500.4050, L100.0100 #### [facility] [address] [place], [address] Platelets (Bld) [#/Vol] 340 10*3/uL Normal 150-450 [facility] Comment on above: Performed By: #### L 501.9520, L506.1001, L500.4050, L100.0100 #### [facility] [address] [place], [address] RBC (Bld) [#/Vol] 4.27 10*6/uL Normal 4.2-5.4 [facility] Comment on above: Performed By: #### L 501.9520, L506.1001, L500.4050, L100.0100 #### [facility] [address] [place], [address] RDW SD 46.4 fl High 35.1-43.9 [facility] Comment on above: Performed By: #### L 501.9520, L506.1001, L500.4050, L100.0100 #### [facility] [address] [place], [address] WBC (Bld) [#/Vol] 14.7 10*3/uL High 4.4-11.0 [facility] Comment on above: Performed By: #### L 501.9520, L506.1001, L500.4050, L100.0100 #### [facility] [address] [place], [address] Comprehensive Metabolic Prof ilon 01-11-2025 Albumin [Mass/Vol] 4.0 g/dL Normal 3.4-4.8 [facility] Comment on above: Performed By: #### L 501.9520, L506.1001, L500.4050, L100.0100 ####[facility] [address] [place], [address] Albumin/Globulin [Mass ratio] 1.4 {ratio} Normal 0.9-2.4 [facility] Comment on above: Performed By: #### L 501.9520, L506.1001, L500.4050, L100.0100 ####[facility] [address] [place], [address] ALK PHOS 82 U/L Normal 35-104 [facility] Comment on above: Performed By: #### L 501.9520, L506.1001, L500.4050, L100.0100 ####[facility] [address] [place], [address] ALT [Catalytic activity/Vol] 18 U/L Normal <=34 [facility] Comment on above: Performed By: #### L 501.9520, L506.1001, L500.4050, L100.0100 ####[facility] [address] [place], [address] AST [Catalytic activity/Vol] 20 U/L Normal <=31 [facility] Comment on above: Performed By: #### L 501.9520, L506.1001, L500.4050, L100.0100 ####[facility] [address] [place], [address] Bilirubin [Mass/Vol] 0.23 mg/dL Normal 0.00-1.30 [facility] Comment on above: Performed By: #### L 501.9520, L506.1001, L500.4050, L100.0100 ####[facility] [address] [place], [address] BUN/CRE 20.8 RATIO High 10-20 [facility] Comment on above: Performed By: #### L 501.9520, L506.1001, L500.4050, L100.0100 ####[facility] [address] [place], [address] Calcium [Mass/Vol] 10.1 mg/dL Normal 7.6-11.0 [facility] Comment on above: Performed By: #### L 501.9520, L506.1001, L500.4050, L100.0100 ####[facility] [address] [place], [address] Chloride [Moles/Vol] 102 mmol/L Normal 98-108 [facility] Comment on above: Performed By: #### L 501.9520, L506.1001, L500.4050, L100.0100 ####[facility] [address] [place], [address] CO2 [Moles/Vol] 26.7 mmol/L Normal 21.0-32.0 [facility] Comment on above: Performed By: #### L 501.9520, L506.1001, L500.4050, L100.0100 ####[facility] [address] [place], [address] Creatinine [Mass/Vol] 0.64 mg/dL Low 0.70-1.20 [facility] Comment on above: Performed By: #### L 501.9520, L506.1001, L500.4050, L100.0100 ####[facility] [address] [place], [address] GAP 13 Normal 5-15 [facility] Comment on above: Performed By: #### L 501.9520, L506.1001, L500.4050, L100.0100 ####[facility] [address] [place], [address] GFR/1.73 sq M.predicted among non-blacks MDRD (S/P/Bld) [Vol rate/Area] 90 mL/min/{1.73_m2} Normal >60 [facility] Comment on above: Result Comment: mL/m in/1.73m2 CKD-EPI Creatinine Equation (2020) Performed By: #### L 501.9520, L506.1001, L500.4050, L100.0100 ####[facility] [address] [place], [address] Globulin (S) [Mass/Vol] 2.8 g/dL Normal 2.2-4.2 [facility] Comment on above: Performed By: #### L 501.9520, L506.1001, L500.4050, L100.0100 ####[facility] [address] [place], [address] Glucose [Mass/Vol] 135 mg/dL High 70-99 [facility] Comment on above: Performed By: #### L 501.9520, L506.1001, L500.4050, L100.0100 ####[facility] [address] [place], [address] Potassium [Moles/Vol] 4.5 mmol/L Normal 3.3-5.1 [facility] Comment on above: Performed By: #### L 501.9520, L506.1001, L500.4050, L100.0100 ####[facility] [address] [place], [address] Sodium [Moles/Vol] 141 mmol/L Normal 133-145 [facility] Comment on above: Performed By: #### L 501.9520, L506.1001, L500.4050, L100.0100 ####[facility] [address] [place], [address] T PROT 6.8 g/dL Normal 5.9-8.4 [facility] Comment on above: Performed By: #### L 501.9520, L506.1001, L500.4050, L100.0100 ####[facility] [address] [place], [address] Urea nitrogen [Mass/Vol] 13 mg/dL Normal 4-19 [facility] Comment on above: Performed By: #### L 501.9520, L506.1001, L500.4050, L100.0100 ####[facility] [address] [place], [address] Thyroid Stim Hormone (TSH)on 01-11-2025 TSH 1.450 uIU/mL Normal 0.300-4.200 [facility] Comment on above: Performed By: #### L 501.9520, L506.1001, L500.4050, L100.0100 #### [facility] [address] [place], [address] Vitamin D,25 Hydroxyon 01-11 Vitamin D 25-OH 33.8 ng/mL Normal 30-100 [facility] Comment on above: Result Comment: Akua min D Status Deficiency: <20 ng/mL (50nmol/L) Insufficiency: 20-30 ng/mL (50-75 nmol/L) Sufficiency: 30-100 ng/mL (75-250 nmol/L) Toxicity: >100 ng/mL (>250 nmol/L) Performed By: #### L 501.9520, L506.1001, L500.4050, L100.0100 ####[facility] [address] [place], [address] CNOVon 12-28-2024 CNOV Office Visit (JEAN-PAUL THOMPSONB) ITZ VEGAS ([id number]) 1945 F [employer] Date Time Provider Department 12/28/24 10:20 AM RERE DUNCAN During your visit today, we recorded the following information about you: Pulse Blood pressure Weight Height 58/minute 152/61 80.3 kg 1.575 m Rere Duncan MD 12/28/2024 9:26 PM Signed PRIMARY CARE PHYSICIAN: Jaya Jung MD [address] [place] [address] REFERRING PHYSICIAN: Rosalind Moses ([facility]) [address] [facility] [address] Patient Care Team: Jaya Jung Chi as PCP - General (Gerontology) Rosalind Moses PA-C as Physician Parachute/Combatant Diver Officer (Cardiology) Jonathan Gerard MD as Specialty Cooling Tower Operator (Cardiology) CHIEF COMPLAINT: Evaluation of arrhythmia HISTORY OF PRESENT ILLNESS: Ms. Vegas is a 79 year old female who presents today for evaluation of atrial fibrillation, referred by [facility]. The patient is a 79-year-old female with a history of atrial fibrillation, presenting for evaluation. She is accompanied by her daughter, who provides additional history. The patient reports a long-standing history of intermittent atrial fibrillation, which became more frequent and persistent around April of last year. She experienced episodes of palpitations, described as pounding and fluttering sensations, along with rapid heartbeats. Initially, these episodes were brief, but they eventually became constant. She was evaluated with EKGs and cardiac monitoring, confirming the diagnosis of atrial fibrillation. She underwent her first cardioversion in August 2024, which successfully restored normal sinus rhythm. However, approximately three weeks later, she experienced a recurrence of atrial fibrillation with rapid ventricular response, prompting a visit to the ED. During this episode, her heart rate ranged from 150 to 190 bpm. A second cardioversion was performed in the ED in September 2024, which again restored normal rhythm. Since then, she has mostly remained in normal sinus rhythm, with only occasional palpitations noted this morning, attributed to mild stress. She believes that stress, particularly related to her 's Alzheimer's disease and her previous living situation, contributed to her arrhythmias. She reports a significant reduction in stress levels since moving to [facility], where she feels happier and more independent. She also notes ongoing weight loss. She denies any symptoms suggestive of sleep apnea, such as loud snoring, and has never been tested for the condition. She denies any history of diabetes or hypertension. Her past medical history is significant for a cholecystectomy following a ruptured gallbladder, during which she first experienced atrial fibrillation with rapid ventricular response. She was hospitalized for 15 days and was treated with amiodarone, which was later discontinued due to stable cardiac rhythm. She has a history of multiple recent infections, including bronchitis, influenza A, and a dental infection, for which she was treated with azithromycin, cefdinir, clindamycin, Tamiflu, and prednisone. She reports an allergy to penicillin, causing hives, and a previous intolerance to codeine and codeine-like medications, such as Vicodin, which caused mental status changes. However, she recently tolerated codeine without issues. She denies any personal history of smoking but reports significant exposure to secondhand smoke from family members throughout her life. Family history is notable for heart disease, diabetes, and hypertension in her mother, who also had atrial fibrillation. Her father had hypertension, diabetes, prostate cancer, and a history of rapid heartbeats, possibly atrial fibrillation. Her brother, who is , had a stroke in his late 50s and lung cancer. Her living brother has Parkinson's disease but no known cardiac issues. She is currently taking Eliquis for stroke prevention and Cardizem 120 mg BID for rate control. She also takes potassium, Effexor 225 mg daily (150 mg + 75 mg), and bsin-jfz-alhkzcb vitamin D3 with vitamin K. I have confirmed and edited as necessary, the PFSH and ROS obtained by others. PAST MEDICAL HISTORY Diagnosis Date Anticoagulant long-term use 12/04/2024 At risk for stroke 12/04/2024 Atrial fibrillation (HCC) Atrial flutter (HCC) Depressed Diabetes mellitus (HCC) Generalized anxiety disorder HTN (hypertension) Hyperlipidemia Insomnia MDD (major depressive disorder) Near syncope Osteopenia Persistent atrial fibrillation (HCC) 12/28/2024 Tinnitus PAST SURGICAL HISTORY Procedure Laterality Date CARDIOVERSION, ELECTIVE, ELECTRICAL CARDIOVERSION, ELECTIVE, ELECTRICAL COLONOSCOPY FLX DX W/COLLJ SPEC WHEN PFRMD Colonoscopy COLON (more content not included)... Normal [facility] ECG B/O W INTERP (MED OFFICE )on 12-28-2024 Sinus bradycardia 58 bpm; first-degree AV block (CO 212 ms); normal QRS duration 78 ms; QTc 418 ms [facility] M100.678on 12-05-2024 M100.678 Pending SARS-CoV-2 (COVID 19) Negative INFLUENZA A Negative INFLUENZA B Negative RSV PCR Negative Normal [facility] Comment on above: Performed By: #### M 100.678 #### [facility] Laboratory [address] [place], [place], [address] Chest PA and Lateralon 11-24 Chest PA and Lateral [facility] Imaging Services [address] [place] [address] Chest PA and Lateral MR#: [id number] Acct: [id number] Name: ITZ VEGAS Rep #: [id number] : 1945 F 79 From: Rere Goodson PCP: Dr. Jaya Jung MD Status: REG CLI Study: Chest PA and Lateral Date of Exam: 11/24/24 Exam# [id number] Ordering Dr: Jaya Jung MD PROCEDURE: CHEST PA AND LATERAL REASON FOR EXAM: Wheezing TECHNIQUE: Frontal and lateral views of the chest. COMPARISON: None. FINDINGS: Cardiomediastinal silhouette is within normal limits. No focal consolidation, pleural effusion or sizable pneumothorax. Severe chronic compression fracture of the midthoracic spine. Chronic right rib fracture also noted. RAD/Chest PA and Lateral IMPRESSION: No acute airspace abnormality. Reading Location: [facility] CC: Dr. Jaya Jung MD Auditor Internal: Signed Normal [facility] M100.678on 11-24-2024 SARS-CoV-2 (COVID-19) Ab IA Ql Normal Reference Range = Negative FLUABV+SARS-CoV-2+RSV Pnl Resp MEHDI+probe GeneXpert Instrument, PCR method Copy of report sent to Infection Control Printer [id number] 11/24/24 1613 VSICK. SARS-CoV-2 (COVID 19) Negative INFLUENZA A A Positive A INFLUENZA B Negative RSV PCR Negative INFLUENZAE A Normal [facility] Comment on above: Performed By: #### L 501.9520, L506.1000, L500.4050, L100.0100, L501.9985 #### [facility] [address] [place], [address] 12 Lead EKGon 10-30-2024 12 Lead EKG [facility] Cardiovascular Services [address] [place] [address] 12 Lead EKG 10/30/24 2213 MR#: [id number] Acct: [id number] Name: ASCENCION,JUDY Pavithra Rep #: [id number] : 1945 79 From: Jonathan Gerard MD Attending Dr: Status: DEP ER Ordering Dr: Nora Solano DO Date: 10/30/24 Location: ED Sex: F C Admitted: Test Reason : REPEAT Blood Pressure : */* mmHG Vent. Rate : 107 BPM Atrial Rate : 107 BPM P-R Int : 186 ms QRS Dur : 76 ms QT Int : 338 ms P-R-T Axes : 74 0 103 degrees QTcB Int : 451 ms Sinus tachycardia with Premature supraventricular complexes Inferior infarct , age undetermined ST T wave abnormality, consider lateral ischemia Abnormal ECG When compared with ECG of 30-Oct-2024 19:52, MANUAL COMPARISON REQUIRED DATA IS UNCONFIRMED Confirmed by JONATHAN GERARD MD ([id number]), [facility] Cortes ([id number]) on 11/01/2024 8:57:13 AM Referred By: Nora Solano Confirmed By: JONATHAN GERARD MD 11/01/24 0857 Date Jonathan Gerard MD CC: Dr. Nora Solano DO; Dr. Jaya Jung MD Signed [facility] 12 Lead EKG [facility] Cardiovascular Services [address] [place] [address] 12 Lead EKG 10/30/241951 MR#: [id number] Acct: [id number] Name: ITZ VEGAS Rep #: [id number] : 1945 79 From: Jonathan Gerard MD Attending Dr: Status: DEP ER Ordering Dr: Nora Solano DO Date: 10/30/24 Location: ED Sex: F C Admitted: Test Reason : CP Blood Pressure : */* mmHG Vent. Rate : 140 BPM Atrial Rate : * BPM P-R Int : * ms QRS Dur : 76 ms QT Int : 292 ms P-R-T Axes : * 16 160 degrees QTcB Int : 445 ms Critical Test Result: High HR Atrial fibrillation with rapid ventricular response Cannot rule out Inferior infarct , age undetermined ST T wave abnormality, consider lateral ischemia Abnormal ECG Confirmed by JONATHAN GERARD MD ([id number]), [facility] Cortes ([id number]) on 11/01/2024 9:01:11 AM Also confirmed by JONATHAN GERARD MD ([id number]), AURELIO Yepez ([id number]) on 11/02/2024 8:30:24 AM Referred By: Nora Solano Confirmed By: JONATHAN GERARD MD 11/02/24 0830 Date Jonathan Gerard MD CC: Dr. Nora Solano DO; Dr. Jaya Jung MD Signed Normal [facility] Basic Metabolic Profile (BMP )on 10-30-2024 BUN/CRE 31.1 RATIO High 10-20 [facility] Comment on above: Order Comment: 'TROP ' Serial specimen #1, #2 or #3: 1 Performed By: #### M 100.678 #### [facility] Laboratory [address] [place], [address] CA,Total 9.6 mg/dL Normal 8.5-10.1 [facility] Comment on above: Order Comment: 'TROP ' Serial specimen #1, #2 or #3: 1 Performed By: #### M 100.678 #### [facility] [address] [place], [address] Chloride [Moles/Vol] 103 mmol/L Normal 98-107 [facility] Comment on above: Order Comment: 'TROP ' Serial specimen #1, #2 or #3: 1 Performed By: #### M 100.678 #### [facility] [address] [place], [address] CO2 [Moles/Vol] 24.0 mmol/L Normal 21.0-32.0 [facility] Comment on above: Order Comment: 'TROP ' Serial specimen #1, #2 or #3: 1 Performed By: #### M 100.678 #### [facility] [address] [place], [address] Creatinine [Mass/Vol] 0.77 mg/dL Normal 0.55-1.02 [facility] Comment on above: Order Comment: 'TROP ' Serial specimen #1, #2 or #3: 1 Result Comment: The validity of the calculated GFR GFRAA in patients over 70 years has not been determined. Clinical correlation is essential. Performed By: #### M 100.678 #### [facility] [address] [place], [address] ECRCL 58.24 ml/min Normal [facility] Comment on above: Order Comment: 'TROP ' Serial specimen #1, #2 or #3: 1 Performed By: #### M 100.678 #### [facility] [address] [place], [address] EST GFR - AA 93 mL/min Normal >60 [facility] Comment on above: Order Comment: 'TROP ' Serial specimen #1, #2 or #3: 1 Result Comment: Afri can [place] GFR Calc Performed By: #### M 100.678 #### [facility] [address] [place], [address] GAP 11 Normal 5-15 [facility] Comment on above: Order Comment: 'TROP ' Serial specimen #1, #2 or #3: 1 Performed By: #### M 100.678 #### [facility] [address] [place], [address] GFR/1.73 sq M.predicted among non-blacks MDRD (S/P/Bld) [Vol rate/Area] 77 mL/min/{1.73_m2} Normal >60 [facility] Comment on above: Order Comment: 'TROP ' Serial specimen #1, #2 or #3: 1 Result Comment: Non- GFR Calc Performed By: #### M 100.678 #### [facility] [address] [place], [address] Glucose [Mass/Vol] 135 mg/dL High 74-106 [facility] Comment on above: Order Comment: 'TROP ' Serial specimen #1, #2 or #3: 1 Result Comment: Fast ing Glucose result greater than or equal to 126 mg/dL suggests DIABETES MELLITUS per A.D.A. criteria. Performed By: #### M 100.678 #### [facility] [address] [place], [address] Potassium [Moles/Vol] 4.0 mmol/L Normal 3.5-5.1 [facility] Comment on above: Order Comment: 'TROP ' Serial specimen #1, #2 or #3: 1 Performed By: #### M 100.678 #### [facility] [address] [place], [address] Sodium [Moles/Vol] 138 mmol/L Normal 136-145 [facility] Comment on above: Order Comment: 'TROP ' Serial specimen #1, #2 or #3: 1 Performed By: #### M 100.678 #### [facility] [address] [place], [address] Urea nitrogen [Mass/Vol] 24 mg/dL High 7-18 [facility] Comment on above: Order Comment: 'TROP ' Serial specimen #1, #2 or #3: 1 Performed By: #### M 100.678 #### [facility] [address] [place], [address] CBC W/Diff, Automatedon 02-0 2-2025 Absolute Lymph 3.00 X10 3/uL Normal 0.83-4.51 [facility] Comment on above: Performed By: #### M 100.678 #### [facility] [address] [place], [address] Absolute Neut 9.5 X10 3/uL High 2.0-7.7 [facility] Comment on above: Performed By: #### M 100.678 #### [facility] [address] [place], [address] Basophils/100 WBC (Bld) 0.6 % Normal 0-1 [facility] Comment on above: Performed By: #### M 100.678 #### [facility] [address] [place], [address] Eosinophils/100 WBC (Bld) 1.0 % Normal 0-5 [facility] Comment on above: Performed By: #### M 100.678 #### [facility] [address] [place], [address] Erythrocyte distribution width (RBC) [Ratio] 14.8 % High 11.6-14.6 [facility] Comment on above: Performed By: #### M 100.678 #### [facility] [address] [place], [address] Hematocrit (Bld) [Volume fraction] 43.3 % Normal 37-47 [facility] Comment on above: Performed By: #### M 100.678 #### [facility] [address] [place], [address] Hemoglobin (Bld) [Mass/Vol] 14.6 g/dL Normal 12.0-15.0 [facility] Comment on above: Performed By: #### M 100.678 #### [facility] [address] [place], [address] IG% 0.400 Normal 0.0-0.9 [facility] Comment on above: Result Comment: IG% - Immature Granulocytes (promyelocytes, myelocytes and metamyelocytes) > 1% indicates that a LEFT SHIFT is Present. Performed By: #### M 100.678 #### [facility] [address] [place], [address] Lymphocytes/100 WBC (Bld) 21.5 % Normal 19-41 [facility] Comment on above: Performed By: #### M 100.678 #### [facility] [address] [place], [address] MCH (RBC) [Entitic mass] 31.5 pg Normal 27.0-32.0 [facility] Comment on above: Performed By: #### M 100.678 #### [facility] [address] [place], [address] MCHC (RBC) [Mass/Vol] 33.7 g/dL Normal 32-36 [facility] Comment on above: Performed By: #### M 100.678 #### [facility] [address] [place], [address] MCV (RBC) [Entitic vol] 93.5 fL Normal 81-99 [facility] Comment on above: Performed By: #### M 100.678 #### [facility] [address] [place], [address] Monocytes/100 WBC (Bld) 8.1 % Normal 0-10 [facility] Comment on above: Performed By: #### M 100.678 #### [facility] [address] [place], [address] Neutrophils/100 WBC (Bld) 68.4 % Normal 47-70 [facility] Comment on above: Performed By: #### M 100.678 #### [facility] [address] [place], [address] Nucleated RBC (Bld) [#/Vol] 0 10*3/uL Normal 0-5 [facility] Comment on above: Performed By: #### M 100.678 #### [facility] [address] [place], [address] Platelet mean volume (Bld) [Entitic vol] 11.4 fL Normal 6.2-12.0 [facility] Comment on above: Performed By: #### M 100.678 #### [facility] [address] [place], [address] Platelets (Bld) [#/Vol] 370 10*3/uL Normal 150-450 [facility] Comment on above: Performed By: #### M 100.678 #### [facility] [address] [place], [address] RBC (Bld) [#/Vol] 4.63 10*6/uL Normal 4.2-5.4 [facility] Comment on above: Performed By: #### M 100.678 #### [facility] [address] [place], [address] RDW SD 51.3 fl High 35.1-43.9 [facility] Comment on above: Performed By: #### M 100.678 #### [facility] [address] [place], [address] WBC (Bld) [#/Vol] 13.9 10*3/uL High 4.4-11.0 [facility] Comment on above: Performed By: #### M 100.678 #### [facility] [address] [place], [address] Chest PA and Lateralon 10-30 Chest PA and Lateral [facility] Imaging Services [address] [place] [address] Chest PA and Lateral MR#: [id number] Acct: [id number] Name: ITZ VEGAS Rep #: [id number] : 1945 F 79 From: Mio Tate MD PCP: Dr. Jaya Jung MD Status: [facility] ER Study: Chest PA and Lateral Date of Exam: 10/30/24 Exam# [id number] Ordering Dr: Nora Solano DO PROCEDURE: CHEST PA AND LATERAL REASON FOR EXAM: Palpitations since yesterday. History of atrial fibrillation. Increased shortness of breath. Denies chest pain TECHNIQUE: Single frontal image including the chest and abdomen. COMPARISON: None. FINDINGS: Lungs are clear of pneumonia and congestion. No pleural effusions, thickening, or pneumothorax. Heart and mediastinum are normal. Aorta is atherosclerotic and tortuous. No hilar masses. Old healed fracture of the right 5th rib. Anterior wedging of the T5 and T7 vertebral bodies. Cardiac monitoring leads overlie the chest wall. RAD/Chest PA and Lateral IMPRESSION: 1. No active cardiopulmonary disease. 2. Vertebral body compression fractures. The T5 fracture was not seen on the previous study. 3. Old healed right 5th rib fracture. Reading Location: [facility] CC: Dr. Nora Solano DO; Dr. Jaya Jung MD Auditor Internal: Signed Normal [facility] Emergency Department Summary on 10-30-2024 Emergency Department Summary [facility] Medical Records Department [address] [place] [address] Emergency Department Summary 10/30/24 MR#: [id number] Acct: [id number] Name: ITZ VEGAS Rep #: [id number] : 1945 79 From: Nora Solano DO PCP: Dr. Jaya Jung MD Status:REG ER Location: ED HPI History of Present Illness Chief Complaint: Palpitations Informant: patient Narrative Narrative: Patient is a 79-year-old female with history of atrial fibrillation with recent cardioversion about 3 weeks [address] before by Dr. Gerard. She states that since the cardioversion she has been completely compliant with her Eliquis. Patient states that yesterday she felt herself going atrial fibrillation feeling palpitations. States sometimes she will feel a bit show you to go back into sinus rhythm pretty quickly. She has not been going on. She did feel little short of breath the last day. States overall she has been feeling okay has been quite active. She came in for further evaluation resizing chest pain. Denies any swelling of her legs. Denies any recent medication changes. No fever or chills reported. [facility] Medical History Anxiety MDD (major depressive disorder) Osteopenia Gallstones Emotional problems Cancer Arthritis Atrial flutter with rapid ventricular response (08/06/21) Atrial fibrillation with rapid ventricular response (08/11/17) Essential hypertension Skin lesion of breast Erythematous bladder mucosa Skin lesion of face History of skin cancer Near syncope Acute pyelonephritis Long-term use of high-risk medication Postoperative atrial fibrillation (08/11/17) HLD (hyperlipidemia) Home Medications ???Medication ???Instructions ???Recorded ???Last Taken ???Type losartan 100 mg tablet 100 mg PO DAILY 09/12/21 Unknown H istory acetaminophen 500 mg oral powder 500 mg PO Q6H PRN fever or pain Unknown History packet (Tylenol Extra Strength) apixaban 5 mg tablet 5 mg PO BID 09/13/21 10/11/24 Hist ory potassium chloride 20 mEq 20 meq PO DAILY 05/13/22 Unknown H istory tablet,extended release(part/cryst) hydrochlorothiazide 25 mg tablet 25 mg PO DAILY #90 tabs 05/14/23 U nknown Rx gabapentin 100 mg capsule 100 mg PO BID 08/02/24 10/11/24 Hi story metoprolol succinate 25 mg 100 mg PO DAILY 08/02/24 10/11/24 History tablet,extended release 24 hr diltiazem HCl 120 mg 240 mg (2 x 120 mg) PO QAM #180 10/11/24 Rx capsule,extended release 24 hr, caps controlled mirtazapine 7.5 mg tablet 7.5 mg PO QHS #90 tabs 09/14/24 Un known Rx venlafaxine 150 mg 150 mg PO DAILY 90 days #90 caps 1 11/15/23 10/11/24 Rx capsule,extended release 24 hr venlafaxine 75 mg capsule,extended 75 mg PO DAILY #90 caps 09/14/24 10/11/24 Rx release 24 hr clonazepam 1 mg tablet 1 mg PO TID PRN PRN anxiety Unknown History tizanidine 4 mg tablet 1 mg PO DAILY PRN PRN muscle spasm 10/30/24 Unknown History Allergy/AdvReac Type Severity Reaction Status Date / Time codeine Allergy Rash Verified 10/30/24 19:52 Penicillins (PCN) Allergy Rash Verified 10/30/24 19:52 Family History Mother Atrial fibrillation Diabetes Heart disease Parkinson disease Father Atrial fibrillation CVA (cerebral vascular accident) Diabetes Heart disease Cancer lung cancer with mets to spine Brother CVA (cerebral vascular accident) Cancer bladder cancer Brother Cancer lung cancer Surgical History History of right breast biopsy history removal bladder tumors History of laparoscopic cholecystectomy Social History Smoking Status: Never smoker alcohol intake: never substance use type: does not use what type of physical activity do you participate in: walking and other details: silver sneakers ROS ROS ED Constitutional Constitutional ED: Denies chills or fever(s) Cardiovascular Cardiovascular: Reports palpitations; Denies chest pain Respiratory/Chest Respiratory/Chest: Reports dyspnea; Denies cough Gastrointestinal Gastrointestinal: Denies nausea or vomiting Musculoskeletal Musculoskeletal: Denies arthralgias or myalgias Neurologic Neurologic: Denies weakness Hematologic/Lymphatic Hematologic/Lymphatic: Reports easy bleeding, easy bruising and other Details: On Eliquis EXAM Physical Exam Const Vital Signs: 10/30/24 19:44 10/30/24 20:42 10/30/24 20:44 Temperature 99.3 F H Temperature Source Oral Pulse Rate 164 H 155 H Pulse Rate [1 (Initial Baseline)] Pulse Rate [2] Pulse Rate [3] Pulse Rate [4] Respiratory Rate 19 H 18 (more content not included)... Normal [facility] L501.4020on 10-30-2024 TROPONIN-I HS 16 pg/mL Normal 3.0-54.0 [facility] Comment on above: Order Comment: 'TROP ' Serial specimen #1, #2 or #3: 1 Result Comment: Annmarie javier Note: New Test Units and Gender Specific Reference Ranges. For more information see Policy Stat Procedure [place] High Sensitivity Troponin (TNIH) and attachments. Performed By: #### M 100.678 #### [facility] [address] [place], [address] 12 Lead EKG performed by [facility] on 10-20-2024 12 Lead EKG performed by [facility] [address] [place] [address] 12 Lead EKG performed by [facility] 10/20/24 1021 MR#: [id number] Acct: [id number] Name: ITZ VEGAS Rep #: [id number] : 1945 79 From: Jose Webster AMALGAMATOR AMALGAMATOR-C Attending Dr: Jose Webster AMALGAMATOR-C Status: DEP AMB Ordering Dr: Jose Webster AMALGAMATOR AMALGAMATOR-C Date: 10/20/24 Location: [facility] Sex: F C Admitted: BMS/12 Lead EKG performed by [facility] ECG Report Interpretation Sin us Bradycardia - occasional PAC # PACs = 1.-Nonspecific ST depression + Negative precordial T-waves -Nondiagnostic. ABNORMAL Electronically signed on 10/25/2024 at 09:59 by Jonathan Gerard Software Version [id number] 10/25/24 1000 Date Jose Webster NP AMALGAMATORAlvarezC CC: Dr. Jaya Jung MD Date Dictated: 10/20/24 1021 Date Transcribed: 10/20/24 102 Auditor Internal: ZAHIDA Signed Normal [facility] CBC W/Diff, Automatedon 09-29 Absolute Lymph 1.91 X10 3/uL Normal 0.83-4.51 [facility] Comment on above: Performed By: #### M 100.678 #### [facility] [address] [place], [address] Absolute Neut 10.4 X10 3/uL High 2.0-7.7 [facility] Comment on above: Performed By: #### M 100.678 #### [facility] [facility] [address] [place], [address] Basophils/100 WBC (Bld) 0.5 % Normal 0-1 [facility] Comment on above: Performed By: #### M 100.678 #### [facility] [address] [place], [address] Eosinophils/100 WBC (Bld) 0.7 % Normal 0-5 [facility] Comment on above: Performed By: #### M 100.678 #### [facility] [address] [place], [address] Erythrocyte distribution width (RBC) [Ratio] 14.7 % High 11.6-14.6 [facility] Comment on above: Performed By: #### M 100.678 #### [facility] [address] [place], [address] Hematocrit (Bld) [Volume fraction] 44.8 % Normal 37-47 [facility] Comment on above: Performed By: #### M 100.678 #### [facility] [address] [place], [address] Hemoglobin (Bld) [Mass/Vol] 14.6 g/dL Normal 12.0-15.0 [facility] Comment on above: Performed By: #### M 100.678 #### [facility] [address] [place], [address] IG% 0.700 Normal 0.0-0.9 [facility] Comment on above: Result Comment: IG% - Immature Granulocytes (promyelocytes, myelocytes and metamyelocytes) > 1% indicates that a LEFT SHIFT is Present. Performed By: #### M 100.678 #### [facility] [address] [place], [address] Lymphocytes/100 WBC (Bld) 13.9 % Low 19-41 [facility] Comment on above: Performed By: #### M 100.678 #### [facility] [address] [place], [address] MCH (RBC) [Entitic mass] 30.6 pg Normal 27.0-32.0 [facility] Comment on above: Performed By: #### M 100.678 #### [facility] [address] [place], [address] MCHC (RBC) [Mass/Vol] 32.6 g/dL Normal 32-36 [facility] Comment on above: Performed By: #### M 100.678 #### [facility] [address] [place], [address] MCV (RBC) [Entitic vol] 93.9 fL Normal 81-99 [facility] Comment on above: Performed By: #### M 100.678 #### [facility] [address] [place], [address] Monocytes/100 WBC (Bld) 8.9 % Normal 0-10 [facility] Comment on above: Performed By: #### M 100.678 #### [facility] [address] [place], [address] Neutrophils/100 WBC (Bld) 75.3 % High 47-70 [facility] Comment on above: Performed By: #### M 100.678 #### [facility] [address] [place], [address] Nucleated RBC (Bld) [#/Vol] 0 10*3/uL Normal 0-5 [facility] Comment on above: Performed By: #### M 100.678 #### [facility] [address] [place], [address] Platelet mean volume (Bld) [Entitic vol] 10.6 fL Normal 6.2-12.0 [facility] Comment on above: Performed By: #### M 100.678 #### [facility] [address] [place], [address] Platelets (Bld) [#/Vol] 322 10*3/uL Normal 150-450 [facility] Comment on above: Performed By: #### M 100.678 #### [facility] [address] [place], [address] RBC (Bld) [#/Vol] 4.77 10*6/uL Normal 4.2-5.4 [facility] Comment on above: Performed By: #### M 100.678 #### [facility] [address] [place], [address] RDW SD 51.6 fl High 35.1-43.9 [facility] Comment on above: Performed By: #### M 100.678 #### [facility] [address] [place], [address] WBC (Bld) [#/Vol] 13.8 10*3/uL High 4.4-11.0 [facility] Comment on above: Performed By: #### M 100.678 #### [facility] [address] [place], [address] Comprehensive Metabolic Prof ilon 10-20-2024 Albumin [Mass/Vol] 3.3 g/dL Normal 3.2-5.0 [facility] Comment on above: Performed By: #### M 100.678 #### [facility] [address] [place], [address] Albumin/Globulin [Mass ratio] 0.9 {ratio} Normal 0.9-2.4 [facility] Comment on above: Performed By: #### M 100.678 #### [facility] [address] [place], [address] ALK P 84 U/L Normal 45-117 [facility] Comment on above: Performed By: #### M 100.678 #### [facility] [address] [place], [address] ALT [Catalytic activity/Vol] 26 U/L Normal 13-56 [facility] Comment on above: Performed By: #### M 100.678 #### [facility] [address] [place], [address] AST [Catalytic activity/Vol] 13 U/L Low 15-37 [facility] Comment on above: Performed By: #### M 100.678 #### [facility] [address] [place], [address] Bilirubin [Mass/Vol] 0.50 mg/dL Normal 0.20-1.00 [facility] Comment on above: Result Comment: For patients on eltrombopag therapy, use of Dimension [place] TBIL is not recommended. Performed By: #### M 100.678 #### [facility] [address] [place], [address] BUN/CRE 17.6 RATIO Normal 10-20 [facility] Comment on above: Performed By: #### M 100.678 #### [facility] [address] [place], [address] CA,Total 9.5 mg/dL Normal 8.5-10.1 [facility] Comment on above: Performed By: #### M 100.678 #### [facility] [address] [place], [address] Chloride [Moles/Vol] 102 mmol/L Normal 98-107 [facility] Comment on above: Performed By: #### M 100.678 #### [facility] [address] [place], [address] CO2 [Moles/Vol] 28.0 mmol/L Normal 21.0-32.0 [facility] Comment on above: Performed By: #### M 100.678 #### [facility] [address] [place], [address] Creatinine [Mass/Vol] 0.68 mg/dL Normal 0.55-1.02 [facility] Comment on above: Result Comment: The validity of the calculated GFR GFRAA in patients over 70 years has not been determined. Clinical correlation is essential. Performed By: #### M 100.678 #### [facility] [address] [place], [address] EST GFR - AA 107 mL/min Normal >60 [facility] Comment on above: Result Comment: Afri can [place] GFR Calc Performed By: #### M 100.678 #### [facility] [address] [place], [address] GAP 8 Normal 5-15 [facility] Comment on above: Performed By: #### M 100.678 #### [facility] [address] [place], [address] GFR/1.73 sq M.predicted among non-blacks MDRD (S/P/Bld) [Vol rate/Area] 89 mL/min/{1.73_m2} Normal >60 [facility] Comment on above: Result Comment: Non- GFR Calc Performed By: #### M 100.678 #### [facility] [address] [place], [address] Globulin (S) [Mass/Vol] 3.8 g/dL Normal 2.2-4.2 [facility] Comment on above: Performed By: #### M 100.678 #### [facility] [address] [place], [address] Glucose [Mass/Vol] 108 mg/dL High 74-106 [facility] Comment on above: Result Comment: Fast ing Glucose result from 100 to 125 mg/dL suggests IMPAIRED HOMEOSTASIS per A.D.A. criteria. Performed By: #### M 100.678 #### [facility] [address] [place], [address] Potassium [Moles/Vol] 4.8 mmol/L Normal 3.5-5.1 [facility] Comment on above: Performed By: #### M 100.678 #### [facility] [address] [place], [address] Sodium [Moles/Vol] 137 mmol/L Normal 136-145 [facility] Comment on above: Performed By: #### M 100.678 #### [facility] [address] [place], [place], [address] T PROT 7.1 g/dL Normal 6.4-8.2 [facility] Comment on above: Performed By: #### M [id number] #### [facility] [address] [place] [place], [address] Urea nitrogen [Mass/Vol] 12 mg/dL Normal 7-18 [facility] Comment on above: Performed By: #### M 100.678 #### [facility] [address] [place], [address] Office Visit Reporton 2024 Office Visit Report [facility] [address] [place] [address] OFFICE VISIT Date of Service: 10/20/24 MR#: [id number] Acct: [id number] Patient: ITZ VEGAS Rep #: [id number] : 1945 Provider: PRABHJOT chavira Age/Sex: 79/F Location[place] [facility] [place] Status: Signed Intake Vital Signs 10/11/24 10:44 Height 5 ft 3 in Weight: 182 lb Intake Visit Reasons: s/p DCCV Allergies codeine Allergy (Verified 09/15/24 13:03) Rash Penicillins (PCN) Allergy (Verified 09/15/24 13:03) Rash Have you fallen in the past year?: No Nurse's Note: Pt in office for post DCCV EKG. EKG placed on [facility]'s desk. Pt aware office will call with further recommendations. Assessment and Plan Assessment and Plan Orders: Orders 12 Lead EKG performed by [facility] 10/20/24 I48.92 - Unspecified atrial flutter, R00.1 - Bradycardia, unspecified, Z79.899 - Other prison (current) drug therapy Clinical Quality Measures Falls Risk Screening/Assistive Devices Have you fallen in the past year?: No 10/27/24 1302 Date Jose Webster AMALGAMATOR AMALGAMATOR-C Cosigner Signature: Date (if applicable) CC: Normal [facility] Thyroid Stim Hormone (TSH)on 10-20-2024 TSH 1.510 uIU/mL Normal 0.358-3.740 [facility] Comment on above: Performed By: #### M 100.678 #### [facility] [address] [place], [place], [address] Vitamin D,25 Hydroxyon 10-20 Vitamin D 25-OH 38.4 ng/mL Normal [facility] Comment on above: Result Comment: [place] min D 25(OH) Status Range Deficiency <20 ng/mL (50nmol/L) Insufficiency 20 - 30 ng/mL (50 - 75 nmol/L) Sufficiency 30 - 100 ng/mL (75 - 250 nmol/L) Toxicity >100 ng/mL (>250 nmol/L) Performed By: #### M 100.678 #### [facility] [address] [place], [place], [address] Procedure Reporton Procedure Report [facility] Medical Records Department [address] [place] [address] Procedure Report 10/11/24 1305 MR#: [id number] Acct: [id number] Name: ASCENCIONITZ L Rep #: [id number] : 1945 79 From: Jonathan Gerard MD PCP: Dr. Jaya Jung MD Status:[facility] Location: [facility] Problems Associated Problem List Diagnoses (1) Atrial flutter with rapid ventricular response: Non-invasive Procedural Procedure Information Date of Procedure: 10/11/24 Pre-Procedure Diagnosis: Atrial fibrillation Post-Procedure Diagnosis: Same Procedure Performed:: DC cardioversion cnc grinder: No Procedure Time Out: 12:20 Procedure Start Time: 12:30 Procedure Stop Time: 12:35 Special Medications: 40 mg of intravenous propofol Description of procedure: Patient was brought to the cardiac catheterization lab in the postabsorptive nonsedated state. Informed consent was obtained. Anterior-posterior pads were applied. The patient was seen by Dr. Christine of the critical care division. 200 J of synchronized DC biphasic cardioversion energy were applied with prompt reversal to sinus rhythm. Patient tolerated the procedure well. Procedure findings: Successful cardioversion to sinus rhythm Complications Complications: No 10/11/24 1307 Cosigner Signature (if applicable): CC: Dr. Jonathan Gerard MD; Dr. Jaya Jung MD Signed Normal [facility] Procedure Report [facility] Medical Records Department [address] [place] [address] Procedure Report 10/11/24 1254 MR#: [id number] Acct: [id number] Name: ITZ VEGAS Rep #: [id number] : 1945 79 From: Jens Christine DO PCP: Dr. Jaya Jung MD Status:[facility] [place] [facility] Location: [facility] Procedures Pulmonary Pulmonary Procedures /Diagnostic Testin Con Sedation Non-invasive Procedural Procedure Information Description of procedure: CONSCIOUS SEDATION REPORT DATE OF SERVICE: October 11, 2024 BRIEF HISTORY OF PRESENT ILLNESS: The patient is a 79-year-old female who presented to [facility] to undergo an elective outpatient cardioversion due to atrial fibrillation. The patient reported a prior history of postanesthesia nausea. She has never previously undergone a cardioversion. The patient denied a history of obstructive sleep apnea. She is a non-smoker. The patient is systemically anticoagulated on Eliquis. Her last surface echocardiogram demonstrated an ejection fraction of approximately 65%. PHYSICAL EXAMINATION: VITAL SIGNS: Reviewed and were acceptable. GENERAL: The patient is a female, in no apparent distress, speaking in full sentences. HEENT: Normocephalic, atraumatic. Mucous membranes are moist and pink. Good mouth opening noted. Trachea is midline. Good neck mobility. CHEST: S1, S2 irregularly irregular. No murmurs, rubs or gallops were noted. LUNGS: Clear to auscultation bilaterally without appreciable wheezes, rales or rhonchi. ABDOMEN: Soft, nontender, nondistended. Positive bowel sounds. EXTREMITIES: There is no clubbing, cyanosis or edema. ASA Class: II DESCRIPTION OF PROCEDURE: After confirmation of informed consent, the patient's anesthesia plan was reviewed in detail. Propofol was chosen. Risks and benefits were reviewed and the patient agreed to proceed. At 1235, the patient was given 40 mg of propofol. The patient achieved an appropriate level of sedation and was given a 200 joule synchronized cardioversion by Dr. Gerard at the bedside. This was successful in achieving normal sinus rhythm. The patient was monitored until 1248, at which time she reached her baseline mental status and function. The patient tolerated the procedure well. COMPLICATIONS: None ESTIMATED BLOOD LOSS: None RECOMMENDATIONS: Okay to recover in usual fashion. 10/11/24 1256 Cosigner Signature (if applicable): CC: Dr. Jonathan Gerard MD; Dr. Jens Christine DO; Dr. Jaya Jung MD Signed Normal [facility] Basic Metabolic Profile (BMP )on 10-05-2024 BUN/CRE 19.6 RATIO Normal 10-20 [facility] Comment on above: Performed By: #### L 500.2500 ####[facility] [address] [facility] [address] CA,Total 9.9 mg/dL Normal 8.5-10.1 [facility] Comment on above: Performed By: #### L 500.2500 ####[facility] [address] [facility]. [facility] [address] Chloride [Moles/Vol] 103 mmol/L Normal 98-107 [facility] Comment on above: Performed By: #### L 500.2500 ####[facility] [address] [facility] [address] CO2 [Moles/Vol] 30.0 mmol/L Normal 21.0-32.0 [facility] Comment on above: Performed By: #### L 500.2500 ####[facility] [address] [facility] [address] Creatinine [Mass/Vol] 0.82 mg/dL Normal 0.55-1.02 [facility] Comment on above: Result Comment: The validity of the calculated GFR GFRAA in patients over 70 years has not been determined. Clinical correlation is essential. Performed By: #### L 500.2500 ####[facility] [address] [place], [address] EST GFR - AA 87 mL/min Normal >60 [facility] Comment on above: Result Comment: Afri can [place] GFR Calc Performed By: #### L 500.2500 ####[facility] [address] [place], [address] GAP 5 Normal 5-15 [facility] Comment on above: Performed By: #### L 500.2500 ####[facility] [address] [place], [address] GFR/1.73 sq M.predicted among non-blacks MDRD (S/P/Bld) [Vol rate/Area] 72 mL/min/{1.73_m2} Normal >60 [facility] Comment on above: Result Comment: Non- GFR Calc Performed By: #### L 500.2500 ####[facility] [address] [place], [address] Glucose [Mass/Vol] 119 mg/dL High 74-106 [facility] Comment on above: Result Comment: Fast ing Glucose result from 100 to 125 mg/dL suggests IMPAIRED HOMEOSTASIS per A.D.A. criteria. Performed By: #### L 500.2500 ####[facility] [address] [place], [address] Potassium [Moles/Vol] 4.3 mmol/L Normal 3.5-5.1 [facility] Comment on above: Performed By: #### L 500.2500 ####[facility] [address] [place], [address] Sodium [Moles/Vol] 138 mmol/L Normal 136-145 [facility] Comment on above: Performed By: #### L 500.2500 ####[facility] [address] [place], [place], [address] Urea nitrogen [Mass/Vol] 16 mg/dL Normal 7-18 [facility] Comment on above: Performed By: #### L 500.2500 ####[facility] [address] [place], [address] Chest PA and Lateralon 10-05 Chest PA and Lateral [facility] Imaging Services [address] [place] [address] Chest PA and Lateral MR#: [id number] Acct: [id number] Name: ITZ VEGAS Rep #: [id number] : 1945 F 79 From: Dayana anderson MD PCP: Dr. Jyaa Jung MD Status: [facility] [place] [facility] Study: Chest PA and Lateral Date of Exam: 10/05/24 Exam# [id number] Ordering Dr: Rosalind Moses PA [id number] HISTORY: For [facility]. TECHNIQUE: XR Chest 2 Views. COMPARISON: 11/06/2022. FINDINGS: CARDIOMEDIASTINAL BORDERS: Cardiac silhouette again upper limits of normal in size. Mediastinal contour unremarkable with calcification of the aortic knob. LUNGS: Chronic hyperinflation with scarring of the lung bases. PLEURA: No pleural effusion or pneumothorax seen. OSSEOUS STRUCTURES: Old right fifth rib fracture. Degenerative change old mid thoracic compression fracture. RAD/Chest PA and Lateral IMPRESSION: No acute cardiopulmonary process identified. Electronically Signed: Dayana Hendrickson MD at 14:53 EST , CC: Dr. Jaya Jung MD; RAFAEL Fiore Auditor Internal: Signed Normal [facility] Cardiology Visit Reporton Cardiology Visit Report [facility] [address] [place], [place] [address] OFFICE VISIT Date of Service: 09/15/24 MR#: [id number] Acct: [id number] Name: ITZ VEGAS Rep #: [id number] : 1945 Provider: RAFAEL Her Age/Sex: 79/F Location[place] [facility] [place] Status: Signed HPI HPI History of Present Illness Details: ITZ VEGAS, is a 79 F who presents to the office today for a cardiovascular follow up visit. She does have a history of hypertension, diabetes, tinnitus, and a previous history of atrial fibrillation which occurred postoperatively. At that time she had an echocardiogram done which was normal and troponins were also noted to be normal. She was discharged on amiodarone and then this was subsequently discontinued. She had apparently been doing well but has recently been under a lot of stress for condition because of her 's health status as well as her dog who suddenly . She noted irregular heartbeats on her apple watch was transmitted and did confirm what appeared to be atrial flutter with a rate of approximately 122 bpm. She was started on Eliquis and Amiodarone. She underwent a stress test 09/30/2021 which was negative for ischemia. An echocardiogram also demonstrated an ejection fraction of 60%, moderate left atrial enlargement and pulm artery systolic pressure of 48 mmHg. A subsequent Holter monitor in November 2021 demonstrated no atrial fibrillation or flutter and an average heart rate of 54 bpm. Her amiodarone was discontinued due to the results of her PFT. At her last OV she was noted to be in atrial flutter. She had a HM this demonstrated 100% Aflutter. Her rate is controlled. She is living at [facility]. Pt is not aware of her Atrial flutter. She wishes not pt proceed with a DCCV. She does not have any chest pain/heaviness. She does not have any worsening SOB., She does not have any bleeding concerns. She denies dizziness, lightheadedness, syncopal or near syncopal episodes, and headaches. She does wear an apple watch. She states her average heart rate 70-80's. Intake Vital Signs 08/02/24 14:58 09/14/24 14:36 12/19/24 13:03 Height 5 ft 3 in 5 ft 3 in 5 ft 3 in Weight: 182 lb BMI 32.2 BP 136/86 H 137/86 H Blood Pressure Location Rt brachial Lt brachial Position Sitting Sitting Respiration 18 Pulse 100 89 Pulse Source Monitor Pulse Oximetry (%) 96 Intake Visit Reasons: 6 W FU Typing Teacher Required: No Is patient in pain?: No Allergies codeine Allergy (Verified 09/15/24 13:03) Rash Penicillins (PCN) Allergy (Verified 09/15/24 13:03) Rash Medications ???Medication ???Instructions ???Recorded ???Confirmed ???Type losartan 100 mg tablet 100 mg PO DAILY 09/12/21 09/15/24 History acetaminophen 500 mg oral powder 500 mg PO Q6H PRN 09/13/21 09/15/24 History packet (Tylenol Extra Strength) apixaban 5 mg tablet 5 mg PO BID 09/13/21 09/15/24 History potassium chloride 20 mEq 20 meq PO DAILY 05/13/22 09/15/24 History tablet,extended release(part/cryst) hydrochlorothiazide 25 mg tablet 25 mg PO DAILY #90 tabs 05/14/23 09/15/24 Rx cholecalciferol (vitamin D3) 50 50 mcg PO DAILY 11/26/23 09/15/24 History mcg (2,000 unit) capsule mecobalamin (vitamin B12) 1,000 1,000 mcg PO DAILY 11/26/23 09/15/24 History mcg chewable tablet gabapentin 100 mg capsule 100 mg PO QDAY 08/02/24 09/15/24 History metoprolol succinate 25 mg 50 mg PO BID 08/02/24 09/15/24 History tablet,extended release 24 hr diltiazem HCl 120 mg 240 mg (2 x 120 mg) PO QAM #180 09/08/24 09/15/24 Rx capsule,extended release 24 hr, caps controlled mirtazapine 7.5 mg tablet 7.5 mg PO QHS #90 tabs 09/14/24 09/15/24 Rx venlafaxine 150 mg 150 mg PO DAILY 90 days #90 caps 09/14/24 09/15/24 Rx capsule,extended release 24 hr venlafaxine 75 mg capsule,extended 75 mg PO DAILY #90 caps 09/14/24 09/15/24 Rx release 24 hr Have you fallen in the past year?: No PFSH Medical History Anxiety MDD (major depressive disorder) Osteopenia Gallstones Emotional problems Cancer Arthritis Atrial flutter with rapid ventricular response (08/06/21) Atrial fibrillation with rapid ventricular response (08/11/17) Essential hypertension Skin lesion of breast Erythematous bladder mucosa Skin lesion of face History of skin cancer Near syncope Acute pyelonephritis Long-term use of high-risk medication Postoperative atrial fibrillation (08/11/17) HLD (hyperlipidemia) Surgical History History of right breast biopsy history removal bladder tumors History of laparoscopic cholecystectomy Family History (more content not included)... Normal [facility] MR/BMS.BPon 09-14-2024 MR/[place] [address] OFFICE VISIT Date of Service: 09/14/24 MR#: [id number] Acct: [id number] Name: ITZ VEGAS Pavithra Rep #: [id number] : 1945 Provider: Dr. Moe Dexter se, DO Age/Sex: 79/F Location: [facility] [place] Status: Signed Intake Vital Signs 06/15/24 14:20 08/02/24 14:58 09/14/24 14:36 Height 5 ft 3 in 5 ft 3 in 5 ft 3 in BP 136/86 H Blood Pressure Location Rt brachial Position Sitting Pulse 100 BP Intake Visit Reasons: follow up Allergies codeine Allergy (Verified 08/02/24 15:04) Rash Penicillins (PCN) Allergy (Verified 08/02/24 15:04) Rash Have you fallen in the past year?: No PFSH Medical History Anxiety MDD (major depressive disorder) Osteopenia Gallstones Emotional problems Cancer Arthritis Atrial flutter with rapid ventricular response (08/06/21) Atrial fibrillation with rapid ventricular response (08/11/17) Essential hypertension Skin lesion of breast Erythematous bladder mucosa Skin lesion of face History of skin cancer Near syncope Acute pyelonephritis Long-term use of high-risk medication Postoperative atrial fibrillation (08/11/17) HLD (hyperlipidemia) Surgical History History of right breast biopsy history removal bladder tumors History of laparoscopic cholecystectomy Family History Mother Atrial fibrillation Diabetes Heart disease Parkinson disease Father Atrial fibrillation CVA (cerebral vascular accident) Diabetes Heart disease Cancer lung cancer with mets to spine Brother CVA (cerebral vascular accident) Cancer bladder cancer Brother Cancer lung cancer Social History Smoking Status: Never smoker alcohol intake: never substance use type: does not use what type of physical activity do you participate in: walking and other details: casey PALACIOS History of Present Illness History provided by: patient HPI: Itz Vegas is a 79 year old female who presents today for follow up evaluation. Patient reports that she has been doing super. Has been really enjoying living at [facility] in the assisted living facility. Was happy to be there when she was having a run of Afib. Has been getting out every day and socializing. Is feeling good about Eusebio for the first time in years. 's health is doing about the same. She feels like he has been having some more contraction in muscle but otherwise health has been ok. Feels like she has been doing largely well in regards to medications. Has been doing largely well with reduced dose of mirtazapine. Sleep has been no problems at all getting about 8 hours regularly. Denies any significant side effects from medications. Denies Si/HI or AVH. Review of Systems Constitutional Denies: change in sleep pattern Eyes Denies: change in vision or blurry vision Ears, Nose, Mouth, Throat Denies: throat pain, neck pain or change in hearing Cardiovascular Denies: chest pain Respiratory Denies: wheezing Genitourinary Denies: dysuria or urinary frequency Musculoskeletal Reports: back pain, joint pain and muscle weakness; Denies: neck pain Integumentary/Breast Denies: rash Neurological Reports: weakness in extremities; Denies: dizziness or confusion Hematologic/Lymphatic Reports: easy bruising Allergic/Immunologic Denies: wheezing Exam Mental Status Exam - Psych Appearance casually dressed Attitude cooperative Activity/Motor Behavior MSE activity/motor behavior finding no adventitious movements Speech regular rate, regular volume and regular prosody Mood euythmic (Super) Affect full range Thought Process linear, logical and coherent Thought Content no delusions and no hallucinations Suicidal Ideation none Homicidal Ideation none Attention intact Concentration intact Sensorium/Orientation awake, alert and oriented x3 Memory/Cognition other (appropriate for stated age) Insight good Judgement good Assessment Plan Assessment Plan (1) MDD (major depressive disorder): Plan: - Continue effexor to 225 mg every day ??? We will continue as previously prescribed -Doing significantly better with reduced dose of mirtazapine Longitudinal care of this patient requires consistent and continuous treatment over an extended period of time. (2) Anxiety: Plan: - Continues to do well off of clonazepam - can continue ambien, however could also consider reduction in future Medications: Changed From venlafaxine ER 150 mg PO DAILY 30 days 30 caps 2RF F32.9 - Major depressive disorder, single (more content not included)... Normal [facility] Non-Geophysical Prospecting Surveyor Cytology Reporton Non-Geophysical Prospecting Surveyor Cytology Report . Pathology Reports Accession: Collected Date/Time: Received Date/Time: Pathologist: [id number] 08/31/2024 11:00 EST 09/02/2024 10:01 MD GRACE VITAL Non-Geophysical Prospecting Surveyor Cytology Report CLINICAL INFORMATION: Bladder Cancer DIAGNOSTIC CATEGORY: NEGATIVE FOR HIGH GRADE UROTHELIAL CARCINOMA. Acute inflammation present. SPECIMEN: Urine GROSS DESCRIPTION: # of Monolayers: 1 Volume (ml) 80 Color: fixed cloudy yellow SUGGESTION/EDUCATIONAL NOTES: This sample was evaluated using standardized diagnostic criteria published in the '[place] System for Reporting Urinary Cytology '(TPS), Second edition, 2021. The following Risk of High-grade urothelial carcinoma is based on published data from TPS. Individual institutional rates may vary. TPS Cytology Diagnostic category Risk of high-grade malignancy Non diagnostic 0-16% Negative for High grade urothelial carcinoma 8-24% Low grade urothelial neoplasm 0-44% Atypical Urothelial cells 24-53% Suspicious for High grade urothelial carcinoma 59-94% Malignant- High grade urothelial carcinoma 76-100% Electronically Signed by Pathology Report verified by [facility] Screened by: JOSE Electronically signed by GRACE VIZCARRA MD Sign-Out Date: 09/05/2024 10:27 Performing Lab: [facility], [address] [place] [address] Pathology Dept Disclaimer If ancillary studies were utilized, the following Laboratory Developed Test (LDT) disclaimer will apply: Under CLIA requirements, [facility] Pathology Laboratory is qualified to perform high complexity testing. For all ancillary stains, positive and negative controls stain appropriately. Performance characteristics of immunohistochemical and chromogenic in-situ hybridization tests have been determined by [facility] Pathology Laboratory. These tests are used for clinical purposes, They should not be regarded as investigational or for research. Normal [facility] Echo Complete W/ Contraston 08-15-2024 Echo Complete W/ Contrast [facility] [address] [place] [address] Echo Complete W/ Contrast 08/15/24 1407 MR#: [id number] Acct: [id number] Name: ITZ VEGAS Rep #: [id number] : 1945 78 From: Jonathan Gerard MD Attending Dr: Cabrera Hale NP-C Status: REG C Ordering Dr: Cabrera Hale AMALGAMATOR AMALGAMATOR-C Date: 08/15/24 Location: [facility] Sex: F C Admitted: Reason For Study: Afib/Flutter Procedure This was a 2D Doppler, Color Flow transthoracic echocardiogram. The study was technically difficult. Contrast injection was performed. Exam performed in department. Left Ventricle Normal LV size. Left ventricular systolic function is normal. The left ventricular ejection fraction is 65 %. No regional wall motion abnormalities noted. Right Ventricle Normal RV size. Normal systolic function. Atria The left atrium is mildly enlarged. Normal right atrium. Mitral Valve Normal mitral valve. Tricuspid Valve Normal tricuspid valve. Mild tricuspid valve insufficiency. Pulmonary artery systolic pressure is 31 mmHg. Aortic Valve The aortic valve is not well visualized. Mild (1+) aortic valve insufficiency. Pulmonic Valve Normal pulmonic valve. Great Vessels Mildly dilated aortic root. The pulmonary artery is normal size. Inferior vena cava collapse with respiration. Pericardium/Pleural No pericardial effusion. Medication 22 gauge I.V. with prn adaptor inserted into right arm. Diluted definity 2ml given slow IV push to enhance endocardial definition. MMode/2D Measurements Calculations LVIDd: 4.1 cm IVSd: 0.95 cm Ao root diam: 3.9 cm LVIDs: 3.1 cm LVPWd: 0.80 cm RVDd: 3.3 cm FS: 23.7 % LAV(MOD-bp): 74.6 ml LA A4 area: 23.8 cm2 LA dimension(2D): 3.7 cm LAV(MOD-bp) Indexed: 40.1 ml/m2 LAV(MOD-sp2): 62.7 ml LAV(MOD-sp4): 68.4 ml RA A4 area: 23.2 cm2 Doppler Measurements Calculations MV E max mahesh: 83.1 cm/sec MV V2 max: 115.3 cm/sec Ao V2 max: 114.5 cm/sec MV max P.3 mmHg Ao max P.4 mmHg MV V2 mean: 60.6 cm/sec MV mean P.8 mmHg MV V2 VTI: 18.0 cm AI max mahesh: 356.7 cm/sec LV V1 max: 92.2 cm/sec MR max mahesh: 428.5 cm/sec AI max P.9 mmHg LV V1 max P.4 mmHg MR max P.4 mmHg AI dec slope: 250.0 cm/sec2 AI P1/2t: 417.9 msec PA V2 max: 91.8 cm/sec TR max mahesh: 264.3 cm/sec TR max P.9 mmHg ECHO/Echo Complete W/ Contrast Interpretation Summary Normal LV size. Left ventricular systolic function is normal. The left ventricular ejection fraction is 65 %. Mildly dilated aortic root. The left atrium is mildly enlarged. Contrast injection was performed. Ordering Physician: Cabrera Hale Referring Physician: Cabrera Hale Performed By: Dipak Jesus RCS 08/15/24 172 Date Jonathan Gerard MD CC: AMALGAMATORMatthieu Hale; Dr. Jaya Jung MD Date Dictated: 08/15/24 1407 Date Transcribed: 08/15/24 172 Auditor Internal: Signed Nikia [facility] 12 Lead EKG performed by [facility] on 08-02-2024 12 Lead EKG performed by [facility] [address] [place] [address] 12 Lead EKG performed by [facility] 08/02/24 1514 MR#: [id number] Acct: [id number] Name: ITZ VEGAS Rep #: [id number] : 1945 78 From: Cabrera RICK Attending Dr: PRABHJOT Hunt Status: LAUREN SABILLON Ordering Dr: Cabrera Hale NP Date: 08/02/24 Location: [facility] [facility] Sex: F C Admitted: BMS/12 Lead EKG performed by [facility] ECG Report Interpretation Atr ial flutter-Electronically signed on 08/11/2024 at 08:02 by Jonathan Gerardwood Software Version [id number] 08/11/24 0804 Date Cabrera RICK CC: Dr. Jaya Jung MD Date Dictated: 08/02/241513 Date Transcribed: 08/02/241513 Auditor Internal: JADEN Signed Normal [facility] Cardiology Visit Reporton Cardiology Visit Report [facility] [address] [place] [address] OFFICE VISIT Date of Service: 08/02/24 MR#: [id number] Acct: [id number] Name: ITZ VEGAS Rep #: [id number] : 1945 Provider: PRABHJOT escudero Age/Sex: 78/F Location: [facility] [place] [facility] Status: Signed HPI HPI History of Present Illness Details: ITZ VEGAS, is a 78 F who presents to the office today for a cardiovascular follow up visit. She does have a history of hypertension, diabetes, tinnitus, and a previous history of atrial fibrillation which occurred postoperatively. At that time she had an echocardiogram done which was normal and troponins were also noted to be normal. She was discharged on amiodarone and then this was subsequently discontinued. She had apparently been doing well but has recently been under a lot of stress for condition because of her 's health status as well as her dog who suddenly . She noted irregular heartbeats on her apple watch was transmitted and did confirm what appeared to be atrial flutter with a rate of approximately 122 bpm. She was started on Eliquis and Amiodarone. She underwent a stress test 09/30/2021 which was negative for ischemia. An echocardiogram also demonstrated an ejection fraction of 60%, moderate left atrial enlargement and pulm artery systolic pressure of 48 mmHg. A subsequent Holter monitor in November 2021 demonstrated no atrial fibrillation or flutter and an average heart rate of 54 bpm. Her amiodarone was discontinued due to the results of her PFT. She is living at [facility]. From a cardiac standpoint, the patient is doing well. She does have occasional palpitations. She denies chest pain, pressure or heaviness. She does acknowledge SOB with exertion-this is improving. She denies Orthopnea, and PND. She does not have bleeding issues; no blood in urine, stool or nosebleeds. She denies any decrease in energy level, myalgias, or claudication. She does not have edema, or sudden weight gain. She denies dizziness, lightheadedness, syncopal or near syncopal episodes, and headaches. She does wear an apple watch. She states her average heart rate 70-80's. Intake Vital Signs 03/30/24 15:03 06/15/24 14:20 08/02/24 14:58 Height 5 ft 3 in 5 ft 3 in 5 ft 3 in Weight: 183 lb BMI 32.4 BP 125/87 H Blood Pressure Location Lt brachial Position Sitting Respiration 20 H Pulse 102 H Pulse Source Monitor Pulse Oximetry (%) 96 Intake Visit Reasons: 8 M FU Typing Teacher Required: No Is patient in pain?: No Allergies codeine Allergy (Verified 08/02/24 15:04) Rash Penicillins (PCN) Allergy (Verified 08/02/24 15:04) Rash Medications ???Medication ???Instructions ???Recorded ???Confirmed ???Type losartan 100 mg tablet 100 mg PO DAILY 09/12/21 08/02/24 History acetaminophen 500 mg oral powder 500 mg PO Q6H PRN 09/13/21 08/02/24 History packet (Tylenol Extra Strength) apixaban 5 mg tablet 5 mg PO BID 09/13/21 08/02/24 History potassium chloride 20 mEq 20 meq PO DAILY 05/13/22 08/02/24 History tablet,extended release(part/cryst) hydrochlorothiazide 25 mg tablet 25 mg PO DAILY #90 tabs 05/14/23 08/02/24 Rx cholecalciferol (vitamin D3) 50 50 mcg PO DAILY 11/26/23 08/02/24 History mcg (2,000 unit) capsule mecobalamin (vitamin B12) 1,000 1,000 mcg PO DAILY 11/26/23 08/02/24 History mcg chewable tablet venlafaxine 150 mg 150 mg PO DAILY 30 days #30 caps 06/15/24 08/02/24 Rx capsule,extended release 24 hr venlafaxine 75 mg capsule,extended 75 mg PO DAILY #30 caps 06/15/24 08/02/24 Rx release 24 hr mirtazapine 7.5 mg tablet 7.5 mg PO QHS #30 tabs 06/30/24 08/02/24 Rx diltiazem HCl 120 mg 240 mg PO QAM 08/02/24 08/02/24 History capsule,extended release 24 hr, controlled gabapentin 100 mg capsule 100 mg PO QDAY 08/02/24 08/02/24 History metoprolol succinate 25 mg 50 mg PO BID 08/02/24 08/02/24 History tablet,extended release 24 hr Have you fallen in the past year?: Yes PFSH Medical History Anxiety MDD (major depressive disorder) Osteopenia Gallstones Emotional problems Cancer Arthritis Atrial flutter with rapid ventricular response (08/06/21) Atrial fibrillation with rapid ventricular response (08/11/17) Essential hypertension Skin lesion of breast Erythematous bladder mucosa Skin lesion of face History of skin cancer Near syncope Acute pyelonephritis Long-term use of high-risk medication Postoperative atrial fibrillation (08/11/17) HLD (hyperlipidemia) Surgical History History of right breast biopsy history removal bladder tumors History of laparoscopic cholecystectomy Family History (Reviewed 08/02/24 @ 15 (more content not included)... Normal [facility] Myoglobin, Serumon 4 Myoglobin, Ser 30 ng/mL Normal 25-58 [facility] Comment on above: Order Comment: Speci men Comment: A duplicate report has been generateddue to demographicSpecimen Comment: updates. Result Comment: Perf ormed at: [facility] [address] [id number] Metal Sander And Finisher: Sergio Pro PhD, Phone: [phone] Performed By: #### M 100.789 #### [facility] [address] [place], [address] L3300.0940on 07-17-2024 VIT D,25 HYDROX Normal [facility] Comment on above: Result Comment: TEST RESULTS LIMITS Vitamin D, 25-Hydroxy 32.8 ng/mL 30.0-100.0 Vitamin D deficiency has been defined by the [place] of [employer] and an Endocrine Society practice guideline as a level of serum 25-OH vitamin D less than 20 ng/mL (1,2). The Endocrine Society went on to further define vitamin D insufficiency as a level between 21 and 29 ng/mL (2). 1. IOM ([place] of Medicine). 2010. Dietary reference intakes for calcium and D. [place]: The National Academies Press. 2. Rufus MF, Enoch NC, Ryan CASSIDY, et al. Evaluation, treatment, and prevention of vitamin D deficiency: an Endocrine Society clinical practice guideline. JCEM. 2010; 96(7):1911-30. TESTING PERFORMED AT [facility]. ORIGINAL REPORT ON FILE IN LAB CONTAINS ADDITIONAL TEST SITE INFORMATION. Performed By: #### L 501.9520, L506.1000, L500.4050, L100.0100, L501.9985 #### [facility] [address] [place], [address] L5000.0010on 07-16-2024 BNP Normal [facility] Comment on above: Result Comment: TEST RESULTS LIMITS B-Type Natriuretic Peptide 110.6 High pg/mL 0.0-100.0 Siemens ADVIA Centaur XP methodology TESTING PERFORMED AT [facility]. ORIGINAL REPORT ON FILE IN LAB CONTAINS ADDITIONAL TEST SITE INFORMATION. Performed By: #### L 5000.0010 ####[facility] [address] [place], [address] CBC W/Diff, Automatedon 06-28 Absolute Lymph 2.43 X10 3/uL Normal 0.83-4.51 [facility] Comment on above: Performed By: #### L 501.4020, L100.0100, L501.5200, L300.8000, L501.3620, L500.4050, L3600.5100, L501.9520 ####[facility] [address] [place], [address] Absolute Neut 14.0 X10 3/uL High 2.0-7.7 [facility] Comment on above: Performed By: #### L 501.4020, L100.0100, L501.5200, L300.8000, L501.3620, L500.4050, L3600.5100, L501.9520 ####[facility] [address] [place], [address] Basophils/100 WBC (Bld) 0.4 % Normal 0-1 [facility] Comment on above: Performed By: #### L 501.4020, L100.0100, L501.5200, L300.8000, L501.3620, L500.4050, L3600.5100, L501.9520 ####[facility] [address] [place], [address] Eosinophils/100 WBC (Bld) 0.6 % Normal 0-5 [facility] Comment on above: Performed By: #### L 501.4020, L100.0100, L501.5200, L300.8000, L501.3620, L500.4050, L3600.5100, L501.9520 ####[facility] [address] [place], [address] Erythrocyte distribution width (RBC) [Ratio] 15.4 % High 11.6-14.6 [facility] Comment on above: Performed By: #### L 501.4020, L100.0100, L501.5200, L300.8000, L501.3620, L500.4050, L3600.5100, L501.9520 ####[facility] [address] [place], [address] Hematocrit (Bld) [Volume fraction] 43.0 % Normal 37-47 [facility] Comment on above: Performed By: #### L 501.4020, L100.0100, L501.5200, L300.8000, L501.3620, L500.4050, L3600.5100, L501.9520 ####[facility] [address] [place], [address] Hemoglobin (Bld) [Mass/Vol] 13.6 g/dL Normal 12.0-15.0 [facility] Comment on above: Performed By: #### L 501.4020, L100.0100, L501.5200, L300.8000, L501.3620, L500.4050, L3600.5100, L501.9520 ####[facility] [address] [place], [address] IG% 0.400 Normal 0.0-0.9 [facility] Comment on above: Result Comment: IG% - Immature Granulocytes (promyelocytes, myelocytes and metamyelocytes) > 1% indicates that a LEFT SHIFT is Present. Performed By: #### L 501.4020, L100.0100, L501.5200, L300.8000, L501.3620, L500.4050, L3600.5100, L501.9520 ####[facility] [address] [place], [address] Lymphocytes/100 WBC (Bld) 13.7 % Low 19-41 [facility] Comment on above: Performed By: #### L 501.4020, L100.0100, L501.5200, L300.8000, L501.3620, L500.4050, L3600.5100, L501.9520 ####[facility] [address] [place], [address] MCH (RBC) [Entitic mass] 29.1 pg Normal 27.0-32.0 [facility] Comment on above: Performed By: #### L 501.4020, L100.0100, L501.5200, L300.8000, L501.3620, L500.4050, L3600.5100, L501.9520 ####[facility] [address] [place], [address] MCHC (RBC) [Mass/Vol] 31.6 g/dL Low 32-36 [facility] Comment on above: Performed By: #### L 501.4020, L100.0100, L501.5200, L300.8000, L501.3620, L500.4050, L3600.5100, L501.9520 ####[facility] [address] [place], [address] MCV (RBC) [Entitic vol] 92.1 fL Normal 81-99 [facility] Comment on above: Performed By: #### L 501.4020, L100.0100, L501.5200, L300.8000, L501.3620, L500.4050, L3600.5100, L501.9520 ####[facility] [address] [place], [address] Monocytes/100 WBC (Bld) 6.1 % Normal 0-10 [facility] Comment on above: Performed By: #### L 501.4020, L100.0100, L501.5200, L300.8000, L501.3620, L500.4050, L3600.5100, L501.9520 ####[facility] [address] [place], [address] Neutrophils/100 WBC (Bld) 78.8 % High 47-70 [facility] Comment on above: Performed By: #### L 501.4020, L100.0100, L501.5200, L300.8000, L501.3620, L500.4050, L3600.5100, L501.9520 ####[facility] [address] [place], [address] Nucleated RBC (Bld) [#/Vol] 0 10*3/uL Normal 0-5 [facility] Comment on above: Performed By: #### L 501.4020, L100.0100, L501.5200, L300.8000, L501.3620, L500.4050, L3600.5100, L501.9520 ####[facility] [address] [place], [address] Platelet mean volume (Bld) [Entitic vol] 10.4 fL Normal 6.2-12.0 [facility] Comment on above: Performed By: #### L 501.4020, L100.0100, L501.5200, L300.8000, L501.3620, L500.4050, L3600.5100, L501.9520 ####[facility] [address] [place], [address] Platelets (Bld) [#/Vol] 398 10*3/uL Normal 150-450 [facility] Comment on above: Performed By: #### L 501.4020, L100.0100, L501.5200, L300.8000, L501.3620, L500.4050, L3600.5100, L501.9520 ####[facility] [address] [place], [address] RBC (Bld) [#/Vol] 4.67 10*6/uL Normal 4.2-5.4 [facility] Comment on above: Performed By: #### L 501.4020, L100.0100, L501.5200, L300.8000, L501.3620, L500.4050, L3600.5100, L501.9520 ####[facility] [address] [place], [address] RDW SD 52.1 fl High 35.1-43.9 [facility] Comment on above: Performed By: #### L 501.4020, L100.0100, L501.5200, L300.8000, L501.3620, L500.4050, L3600.5100, L501.9520 ####[facility] [address] [place], [address] WBC (Bld) [#/Vol] 17.8 10*3/uL High 4.4-11.0 [facility] Comment on above: Performed By: #### L 501.4020, L100.0100, L501.5200, L300.8000, L501.3620, L500.4050, L3600.5100, L501.9520 ####[facility] [address] [place], [address] CPK Total, Creatine Kinaseon 07-12-2024 CPK TOTAL 48 U/L Normal 26-192 [facility] Comment on above: Order Comment: 1 Performed By: #### L 501.4020, L100.0100, L501.5200, L300.8000, L501.3620, L500.4050, L3600.5100, L501.9520 ####[facility] [address] [place], [address] Comprehensive Metabolic Prof ilon 07-12-2024 Albumin [Mass/Vol] 3.4 g/dL Normal 3.2-5.0 [facility] Comment on above: Order Comment: 1 Performed By: #### L 501.4020, L100.0100, L501.5200, L300.8000, L501.3620, L500.4050, L3600.5100, L501.9520 ####[facility] [address] [place], [address] Albumin/Globulin [Mass ratio] 0.9 {ratio} Normal 0.9-2.4 [facility] Comment on above: Order Comment: 1 Performed By: #### L 501.4020, L100.0100, L501.5200, L300.8000, L501.3620, L500.4050, L3600.5100, L501.9520 ####[facility] [address] [place], [address] ALK P 123 U/L High 45-117 [facility] Comment on above: Order Comment: 1 Performed By: #### L 501.4020, L100.0100, L501.5200, L300.8000, L501.3620, L500.4050, L3600.5100, L501.9520 ####[facility] [address] [place], [address] ALT [Catalytic activity/Vol] 22 U/L Normal 13-56 [facility] Comment on above: Order Comment: 1 Performed By: #### L 501.4020, L100.0100, L501.5200, L300.8000, L501.3620, L500.4050, L3600.5100, L501.9520 ####[facility] [address] [place], [address] AST [Catalytic activity/Vol] 11 U/L Low 15-37 [facility] Comment on above: Order Comment: 1 Performed By: #### L 501.4020, L100.0100, L501.5200, L300.8000, L501.3620, L500.4050, L3600.5100, L501.9520 ####[facility] [address] [place], [address] Bilirubin [Mass/Vol] 0.50 mg/dL Normal 0.20-1.00 [facility] Comment on above: Order Comment: 1 Result Comment: For patients on eltrombopag therapy, use of Dimension [place] TBIL is not recommended. Performed By: #### L 501.4020, L100.0100, L501.5200, L300.8000, L501.3620, L500.4050, L3600.5100, L501.9520 ####[facility] [address] [place], [address] BUN/CRE 23.8 RATIO High 10-20 [facility] Comment on above: Order Comment: 1 Performed By: #### L 501.4020, L100.0100, L501.5200, L300.8000, L501.3620, L500.4050, L3600.5100, L501.9520 ####[facility] [address] [place], [address] CA,Total 9.6 mg/dL Normal 8.5-10.1 [facility] Comment on above: Order Comment: 1 Performed By: #### L 501.4020, L100.0100, L501.5200, L300.8000, L501.3620, L500.4050, L3600.5100, L501.9520 ####[facility] [address] [place], [address] Chloride [Moles/Vol] 102 mmol/L Normal 98-107 [facility] Comment on above: Order Comment: 1 Performed By: #### L 501.4020, L100.0100, L501.5200, L300.8000, L501.3620, L500.4050, L3600.5100, L501.9520 ####[facility] [address] [place], [address] CO2 [Moles/Vol] 29.0 mmol/L Normal 21.0-32.0 [facility] Comment on above: Order Comment: 1 Performed By: #### L 501.4020, L100.0100, L501.5200, L300.8000, L501.3620, L500.4050, L3600.5100, L501.9520 ####[facility] [address] [place], [address] Creatinine [Mass/Vol] 0.63 mg/dL Normal 0.55-1.02 [facility] Comment on above: Order Comment: 1 Result Comment: The validity of the calculated GFR GFRAA in patients over 70 years has not been determined. Clinical correlation is essential. Performed By: #### L 501.4020, L100.0100, L501.5200, L300.8000, L501.3620, L500.4050, L3600.5100, L501.9520 ####[facility] [address] [place], [address] EST GFR - AA 118 mL/min Normal >60 [facility] Comment on above: Order Comment: 1 Result Comment: Afri can [place] GFR Calc Performed By: #### L 501.4020, L100.0100, L501.5200, L300.8000, L501.3620, L500.4050, L3600.5100, L501.9520 ####[facility] [address] [place], [address] GAP 7 Normal 5-15 [facility] Comment on above: Order Comment: 1 Performed By: #### L 501.4020, L100.0100, L501.5200, L300.8000, L501.3620, L500.4050, L3600.5100, L501.9520 ####[facility] [address] [place], [address] GFR/1.73 sq M.predicted among non-blacks MDRD (S/P/Bld) [Vol rate/Area] 97 mL/min/{1.73_m2} Normal >60 [facility] Comment on above: Order Comment: 1 Result Comment: Non- GFR Calc Performed By: #### L 501.4020, L100.0100, L501.5200, L300.8000, L501.3620, L500.4050, L3600.5100, L501.9520 ####[facility] [address] [place], [address] Globulin (S) [Mass/Vol] 3.8 g/dL Normal 2.2-4.2 [facility] Comment on above: Order Comment: 1 Performed By: #### L 501.4020, L100.0100, L501.5200, L300.8000, L501.3620, L500.4050, L3600.5100, L501.9520 ####[facility] [address] [place], [address] Glucose [Mass/Vol] 122 mg/dL High 74-106 [facility] Comment on above: Order Comment: 1 Result Comment: Fast ing Glucose result from 100 to 125 mg/dL suggests IMPAIRED HOMEOSTASIS per A.D.A. criteria. Performed By: #### L 501.4020, L100.0100, L501.5200, L300.8000, L501.3620, L500.4050, L3600.5100, L501.9520 ####[facility] [address] [place], [address] Potassium [Moles/Vol] 3.8 mmol/L Normal 3.5-5.1 [facility] Comment on above: Order Comment: 1 Performed By: #### L 501.4020, L100.0100, L501.5200, L300.8000, L501.3620, L500.4050, L3600.5100, L501.9520 ####[facility] [address] [place], [address] Sodium [Moles/Vol] 138 mmol/L Normal 136-145 [facility] Comment on above: Order Comment: 1 Performed By: #### L 501.4020, L100.0100, L501.5200, L300.8000, L501.3620, L500.4050, L3600.5100, L501.9520 ####[facility] [address] [place], [address] T PROT 7.2 g/dL Normal 6.4-8.2 [facility] Comment on above: Order Comment: 1 Performed By: #### L 501.4020, L100.0100, L501.5200, L300.8000, L501.3620, L500.4050, L3600.5100, L501.9520 ####[facility] [address] [place], [address] Urea nitrogen [Mass/Vol] 15 mg/dL Normal 7-18 [facility] Comment on above: Order Comment: 1 Performed By: #### L 501.4020, L100.0100, L501.5200, L300.8000, L501.3620, L500.4050, L3600.5100, L501.9520 ####[facility] [address] [place], [address] D-Dimer Quantitative (DVT/PE )on 07-12-2024 D-DIMER QUANT 0.42 FEU/ug/m Normal 0.27-0.49 [facility] Comment on above: Result Comment: NORM AL D-Dimer level (<0.50) indicates no DVT or PE. Performed By: #### L 501.4020, L100.0100, L501.5200, L300.8000, L501.3620, L500.4050, L3600.5100, L501.9520 ####[facility] [address] [place], [place], [address] HIP, UNI W/ Pelvis 2-3 Views on 07-12-2024 HIP, UNI W/ Pelvis 2-3 Views [facility] Imaging Services [address] [place], [place] [address] HIP, UNI W/ Pelvis 2-3 Views MR#: [id number] Acct: [id number] Name: ITZ VEGAS Rep #: [id number] : 1945 F 78 From: Honorio goodson MD PCP: Dr. Jaya Jung MD Status: [facility] Study: HIP, UNI W/ Pelvis 2-3 Views Date of Exam: Exam# [id number] Ordering Dr: Karl Villar MD [id number] STUDY: X-RAY - PELVIS AND LEFT HIP REASON FOR EXAM: Female, 78 years old. HIP PAIN TECHNIQUE: 3 views of the pelvis and hip. COMPARISON: None. FINDINGS: Nondisplaced fractures are seen of the left superior and inferior pubic rami. Normal bilateral iliac wings, sacroiliac joints and visualized sacrum. Normal pubic symphysis. Normal bilateral ischial tuberosities. Normal visualized femoral head. Normal acetabulum. Normal hip joint. RAD/HIP, UNI W/ Pelvis 2-3 Views IMPRESSION: Nondisplaced fractures of the left superior and inferior pubic rami. Otherwise negative. Electronically Signed: Honorio Manzo MD at 23:02 EDT , CC: Dr. Karl Villar MD; Dr. Jaya Jung MD Auditor Internal: Signed Normal [facility] L501.4020on 07-12-2024 TROPONIN-I HS 12 pg/mL Normal 3.0-54.0 [facility] Comment on above: Order Comment: 1 Result Comment: Plea se Note: New Test Units and Gender Specific Reference Ranges. For more information see Policy Stat Procedure [place] High Sensitivity Troponin (TNIH) and attachments. Performed By: #### L 501.4020, L100.0100, L501.5200, L300.8000, L501.3620, L500.4050, L3600.5100, L501.9520 ####[facility] [address] [place], [address] Magnesiumon 07-12-2024 Magnesium [Mass/Vol] 1.6 mg/dL Normal 1.6-2.6 [facility] Comment on above: Order Comment: 1 Performed By: #### L 501.4020, L100.0100, L501.5200, L300.8000, L501.3620, L500.4050, L3600.5100, L501.9520 ####[facility] [address] [place], [address] Thyroid Stim Hormone (TSH)on 07-12-2024 TSH 1.560 uIU/mL Normal 0.358-3.740 [facility] Comment on above: Order Comment: 1 Performed By: #### M 100.678 #### [facility] [address] [place], [address] MR/BMS.BPon 06-15-2024 MR/BMS.BP [facility] [address] [place] [address], [address] [place], [place] [address] OFFICE VISIT Date of Service: 06/15/24 MR#: [id number] Acct: [id number] Name: ITZ VEGAS Rep #: [id number] : 1945 Provider: Dr. Moe Dexter se, DO Age/Sex: 78/F Location[place] [facility] [place] Status: Signed Intake Vital Signs 03/30/24 15:03 06/15/24 14:17 06/15/24 14:20 Height 5 ft 3 in 5 ft 3 in 5 ft 3 in Weight: 190 lb BMI 33.6 BP 134/85 H Respiration 18 Pulse 89 Pulse Oximetry (%) 100 BP Intake Visit Reasons: 2-3MFU Accompanied by: Self Allergies codeine Allergy (Verified 06/15/24 14:18) Rash Penicillins (PCN) Allergy (Verified 06/15/24 14:18) Rash Medications ???Medication ???Instructions ???Recorded ???Confirmed ???Type losartan 100 mg tablet 100 mg PO DAILY 09/12/21 06/15/24 History acetaminophen 500 mg oral powder 500 mg PO Q6H PRN 09/13/21 06/15/24 History packet (Tylenol Extra Strength) apixaban 5 mg tablet 5 mg PO BID 09/13/21 06/15/24 History potassium chloride 20 mEq 20 meq PO DAILY 05/13/22 06/15/24 History tablet,extended release(part/cryst) hydrochlorothiazide 25 mg tablet 25 mg PO DAILY #90 tabs 05/14/23 06/15/24 Rx cholecalciferol (vitamin D3) 50 50 mcg PO DAILY 11/26/23 06/15/24 History mcg (2,000 unit) capsule mecobalamin (vitamin B12) 1,000 1,000 mcg PO DAILY 11/26/23 06/15/24 History mcg chewable tablet metoprolol succinate 25 mg 25 mg PO DAILY #90 TABLETS 03/28/24 06/15/24 Rx tablet,extended release 24 hr mirtazapine 15 mg tablet 15 mg PO QHS #14 tabs 06/08/24 06/15/24 Rx amlodipine 5 mg tablet 5 mg PO DAILY #90 tabs 06/13/24 06/15/24 Rx venlafaxine 150 mg 150 mg PO DAILY 30 days #30 caps 06/15/24 06/15/24 Rx capsule,extended release 24 hr venlafaxine 75 mg capsule,extended 75 mg PO DAILY #30 caps 06/15/24 06/15/24 Rx release 24 hr Have you fallen in the past year?: Yes PFSH Medical History Anxiety MDD (major depressive disorder) Osteopenia Gallstones Emotional problems Cancer Arthritis Atrial flutter with rapid ventricular response (08/06/21) Atrial fibrillation with rapid ventricular response (08/11/17) Essential hypertension Skin lesion of breast Erythematous bladder mucosa Skin lesion of face History of skin cancer Near syncope Acute pyelonephritis Long-term use of high-risk medication Postoperative atrial fibrillation (08/11/17) HLD (hyperlipidemia) Surgical History History of right breast biopsy history removal bladder tumors History of laparoscopic cholecystectomy Family History Mother Atrial fibrillation Diabetes Heart disease Parkinson disease Father Atrial fibrillation CVA (cerebral vascular accident) Diabetes Heart disease Cancer lung cancer with mets to spine Brother CVA (cerebral vascular accident) Cancer bladder cancer Brother Cancer lung cancer Social History Smoking Status: Never smoker alcohol intake: never substance use type: does not use what type of physical activity do you participate in: walking and other details: casey PALACIOS History of Present Illness History provided by: patient HPI: Itz Vegas is a 78 year old female who presents today for follow up evaluation. Of note, patient was nearly 20 minutes late to appointment today as she did get lost on way to appointment despite having been here several times. Patient reports that she has been better sort of. Patient left her house and moved in to [facility] at the beginning of April. Her does live in the memory care unit at [facility] as well. Despite this, she has actually not been spending as much time at the memory care unit because she is participating in all the activities at [place]. She made this decision and told her children the decision after she had already decided. Reports that she was feeling lonely and depressed living at her home in [place]. She has been very happy with moving. Has been meeting a lot of people and increasing her socialization. She did have a fall in recent past and has been having some muscle aches since this time. Has been having some mild trouble getting to sleep, but this is improving as well. Denies SI HI or AVH. Has completely stopped clonazepam and is doing well. Review of Systems Constitutional Reports: fatigue Eyes Denies: change in vision or blurry vision Ears, Nose, Mouth, Throat Denies: throat pain, neck pain or change in hearing Cardiovascular Denies: chest pain Respiratory Denies: wheezing Genitourinary Denies: dysuria or urinary frequency Musculoskeletal Reports: back pain, nevaeh (more content not included)... Normal [facility] Thoracic Spine 2 Viewson Thoracic Spine 2 Views [facility] Imaging Services [address] [place] [address] Thoracic Spine 2 Views MR#: [id number] Acct: [id number] Name: ITZ VEGAS Rep #: [id number] : 1945 F 78 From: Randolph iDggs MD PCP: Dr. Jaya Jung MD Status: REG CLI Study: Thoracic Spine 2 Views Date of Exam: 05/23/24 Exam# [id number] Ordering Dr: Jaya Jung MD [id number] EXAM: XR THORACIC SPINE, 2 VIEWS CLINICAL INDICATION: BACK PAIN TECHNIQUE: Frontal and lateral views of the thoracic spine. COMPARISON: No relevant prior studies available. FINDINGS: VERTEBRAE: There is a compression deformity of the T7 vertebral body which was present on a chest x-ray dated 11/06/2022 and is unchanged. There is mild curvature in the thoracic spine. No spondylolisthesis. No significant facet arthropathy. DISC SPACES: There are mild degenerative changes with disc space narrowing. RAD/Thoracic Spine 2 Views IMPRESSION: Old compression deformity of T7. There are degenerative changes with disc space narrowing. There are no acute osseous abnormalities. Electronically Signed: Randolph Diggs MD at 17:11 EDT , CC: Dr. Jaya Jung MD Auditor Internal: Signed Normal [facility] Hemoglobin A1con 04-13-2024 HbA1c (Bld) [Mass fraction] 6.8 % High 3.8-5.6 [facility] Comment on above: Order Comment: ADD O N A1C FROM 04/11/24 BLOOD DRAW Result Comment: Norm al < 5.7 % Prediabetic 5.7 - 6.4 % Diabetic >or= 6.5 % Please note range changes. Performed By: #### L 501.9520, L506.1000, L500.4050, L100.0100, L501.9985 #### [facility] [address] [place], [address] CBC W/Diff, Automatedon 03-28 Absolute Lymph 3.22 X10 3/uL Normal 0.83-4.51 [facility] Comment on above: Performed By: #### L 501.9520, L506.1000, L500.4050, L100.0100, L501.9985 #### [facility] [address] [place], [address] Absolute Neut 7.7 X10 3/uL Normal 2.0-7.7 [facility] Comment on above: Performed By: #### L 501.9520, L506.1000, L500.4050, L100.0100, L501.9985 #### [facility] [address] [place], [address] Basophils/100 WBC (Bld) 0.7 % Normal 0-1 [facility] Comment on above: Performed By: #### L 501.9520, L506.1000, L500.4050, L100.0100, L501.9985 #### [facility] [address] [place], [address] Eosinophils/100 WBC (Bld) 1.6 % Normal 0-5 [facility] Comment on above: Performed By: #### L 501.9520, L506.1000, L500.4050, L100.0100, L501.9985 #### [facility] [address] [place], [address] Erythrocyte distribution width (RBC) [Ratio] 13.8 % Normal 11.6-14.6 [facility] Comment on above: Performed By: #### L 501.9520, L506.1000, L500.4050, L100.0100, L501.9985 #### [facility] [address] [place], [address] Hematocrit (Bld) [Volume fraction] 42.3 % Normal 37-47 [facility] Comment on above: Performed By: #### L 501.9520, L506.1000, L500.4050, L100.0100, L501.9985 #### [facility] [address] [place], [address] Hemoglobin (Bld) [Mass/Vol] 13.5 g/dL Normal 12.0-15.0 [facility] Comment on above: Performed By: #### L 501.9520, L506.1000, L500.4050, L100.0100, L501.9985 #### [facility] [address] [place], [address] IG% 0.400 Normal 0.0-0.9 [facility] Comment on above: Result Comment: IG% - Immature Granulocytes (promyelocytes, myelocytes and metamyelocytes) > 1% indicates that a LEFT SHIFT is Present. Performed By: #### L 501.9520, L506.1000, L500.4050, L100.0100, L501.9985 #### [facility] [address] [place], [address] Lymphocytes/100 WBC (Bld) 26.2 % Normal 19-41 [facility] Comment on above: Performed By: #### L 501.9520, L506.1000, L500.4050, L100.0100, L501.9985 #### [facility] [address] [place], [address] MCH (RBC) [Entitic mass] 29.3 pg Normal 27.0-32.0 [facility] Comment on above: Performed By: #### L 501.9520, L506.1000, L500.4050, L100.0100, L501.9985 #### [facility] [address] [place], [address] MCHC (RBC) [Mass/Vol] 31.9 g/dL Low 32-36 [facility] Comment on above: Performed By: #### L 501.9520, L506.1000, L500.4050, L100.0100, L501.9985 #### [facility] [address] [place], [address] MCV (RBC) [Entitic vol] 91.8 fL Normal 81-99 [facility] Comment on above: Performed By: #### L 501.9520, L506.1000, L500.4050, L100.0100, L501.9985 #### [facility] [address] [place], [address] Monocytes/100 WBC (Bld) 8.2 % Normal 0-10 [facility] Comment on above: Performed By: #### L 501.9520, L506.1000, L500.4050, L100.0100, L501.9985 #### [facility] [address] [place], [address] Neutrophils/100 WBC (Bld) 62.9 % Normal 47-70 [facility] Comment on above: Performed By: #### L 501.9520, L506.1000, L500.4050, L100.0100, L501.9985 #### [facility] [address] [place], [address] Nucleated RBC (Bld) [#/Vol] 0 10*3/uL Normal 0-5 [facility] Comment on above: Performed By: #### L 501.9520, L506.1000, L500.4050, L100.0100, L501.9985 #### [facility] [address] [place], [address] Platelet mean volume (Bld) [Entitic vol] 11.3 fL Normal 6.2-12.0 [facility] Comment on above: Performed By: #### L 501.9520, L506.1000, L500.4050, L100.0100, L501.9985 #### [facility] [address] [place], [address] Platelets (Bld) [#/Vol] 359 10*3/uL Normal 150-450 [facility] Comment on above: Performed By: #### L 501.9520, L506.1000, L500.4050, L100.0100, L501.9985 #### [facility] [address] [place], [address] RBC (Bld) [#/Vol] 4.61 10*6/uL Normal 4.2-5.4 [facility] Comment on above: Performed By: #### L 501.9520, L506.1000, L500.4050, L100.0100, L501.9985 #### [facility] [address] [place], [address] RDW SD 46.6 fl High 35.1-43.9 [facility] Comment on above: Performed By: #### L 501.9520, L506.1000, L500.4050, L100.0100, L501.9985 #### [facility] [address] [place], [address] WBC (Bld) [#/Vol] 12.3 10*3/uL High 4.4-11.0 [facility] Comment on above: Performed By: #### L 501.9520, L506.1000, L500.4050, L100.0100, L501.9985 #### [facility] [address] [place], [address] Comprehensive Metabolic Prof [facility] 04-11-2024 Albumin [Mass/Vol] 3.4 g/dL Normal 3.2-5.0 [facility] Comment on above: Performed By: #### L 501.9520, L506.1000, L500.4050, L100.0100, L501.9985 #### [facility] [address] [place], [address] Albumin/Globulin [Mass ratio] 0.8 {ratio} Low 0.9-2.4 [facility] Comment on above: Performed By: #### L 501.9520, L506.1000, L500.4050, L100.0100, L501.9985 #### [facility] [address] [place], [address] ALK P 89 U/L Normal 45-117 [facility] Comment on above: Performed By: #### L 501.9520, L506.1000, L500.4050, L100.0100, L501.9985 #### [facility] [address] [place], [address] ALT [Catalytic activity/Vol] 28 U/L Normal 13-56 [facility] Comment on above: Performed By: #### L 501.9520, L506.1000, L500.4050, L100.0100, L501.9985 #### [facility] [address] [place], [address] AST [Catalytic activity/Vol] 23 U/L Normal 15-37 [facility] Comment on above: Performed By: #### L 501.9520, L506.1000, L500.4050, L100.0100, L501.9985 #### [facility] [address] [place], [address] Bilirubin [Mass/Vol] 0.20 mg/dL Normal 0.20-1.00 [facility] Comment on above: Result Comment: For patients on eltrombopag therapy, use of Dimension [place] TBIL is not recommended. Performed By: #### L 501.9520, L506.1000, L500.4050, L100.0100, L501.9985 #### [facility] [address] [place], [address] BUN/CRE 20.3 RATIO High 10-20 [facility] Comment on above: Performed By: #### L 501.9520, L506.1000, L500.4050, L100.0100, L501.9985 #### [facility] [address] [place], [address] CA,Total 9.5 mg/dL Normal 8.5-10.1 [facility] Comment on above: Performed By: #### L 501.9520, L506.1000, L500.4050, L100.0100, L501.9985 #### [facility] [address] [place], [address] Chloride [Moles/Vol] 102 mmol/L Normal 98-107 [facility] Comment on above: Performed By: #### L 501.9520, L506.1000, L500.4050, L100.0100, L501.9985 #### [facility] [address] [place], [address] CO2 [Moles/Vol] 29.0 mmol/L Normal 21.0-32.0 [facility] Comment on above: Performed By: #### L 501.9520, L506.1000, L500.4050, L100.0100, L501.9985 #### [facility] [address] [place], [address] Creatinine [Mass/Vol] 0.59 mg/dL Normal 0.55-1.02 [facility] Comment on above: Result Comment: The validity of the calculated GFR GFRAA in patients over 70 years has not been determined. Clinical correlation is essential. Performed By: #### L 501.9520, L506.1000, L500.4050, L100.0100, L501.9985 #### [facility] [address] [place], [address] EST GFR - AA 126 mL/min Normal >60 [facility] Comment on above: Result Comment: Afri can [place] GFR Calc Performed By: #### L 501.9520, L506.1000, L500.4050, L100.0100, L501.9985 #### [facility] [address] [place], [address] GAP 7 Normal 5-15 [facility] Comment on above: Performed By: #### L 501.9520, L506.1000, L500.4050, L100.0100, L501.9985 #### [facility] [address] [place], [address] GFR/1.73 sq M.predicted among non-blacks MDRD (S/P/Bld) [Vol rate/Area] 105 mL/min/{1.73_m2} Normal >60 [facility] Comment on above: Result Comment: Non- GFR Calc Performed By: #### L 501.9520, L506.1000, L500.4050, L100.0100, L501.9985 #### [facility] [address] [place], [address] Globulin (S) [Mass/Vol] 4.3 g/dL High 2.2-4.2 [facility] Comment on above: Performed By: #### L 501.9520, L506.1000, L500.4050, L100.0100, L501.9985 #### [facility] [address] [place], [address] Glucose [Mass/Vol] 132 mg/dL High 74-106 [facility] Comment on above: Result Comment: Fast ing Glucose result greater than or equal to 126 mg/dL suggests DIABETES MELLITUS per A.D.A. criteria. Performed By: #### L 501.9520, L506.1000, L500.4050, L100.0100, L501.9985 #### [facility] [address] [place], [address] Potassium [Moles/Vol] 4.7 mmol/L Normal 3.5-5.1 [facility] Comment on above: Performed By: #### L 501.9520, L506.1000, L500.4050, L100.0100, L501.9985 #### [facility] [address] [place], [address] Sodium [Moles/Vol] 138 mmol/L Normal 136-145 [facility] Comment on above: Performed By: #### L 501.9520, L506.1000, L500.4050, L100.0100, L501.9985 #### [facility] [address] [place], [address] T PROT 7.7 g/dL Normal 6.4-8.2 [facility] Comment on above: Performed By: #### L 501.9520, L506.1000, L500.4050, L100.0100, L501.9985 #### [facility] [address] [place], [address] Urea nitrogen [Mass/Vol] 12 mg/dL Normal 7-18 [facility] Comment on above: Performed By: #### L 501.9520, L506.1000, L500.4050, L100.0100, L501.9985 #### [facility] [address] [place], [address] Thyroid Stim Hormone (TSH)on 04-11-2024 TSH 1.48 uIU/mL Normal 0.358-3.74 [facility] Comment on above: Performed By: #### L 501.9520, L506.1000, L500.4050, L100.0100, L501.9985 #### [facility] Laboratory [address] [place], [address] Vitamin D,25 Hydroxyon 04-11 Vitamin D 25-OH 29.5 ng/mL Normal [facility] Comment on above: Result Comment: [place] min D 25(OH) Status Range Deficiency <20 ng/mL (50nmol/L) Insufficiency 20 - 30 ng/mL (50 - 75 nmol/L) Sufficiency 30 - 100 ng/mL (75 - 250 nmol/L) Toxicity >100 ng/mL (>250 nmol/L) Performed By: #### L [id number], L506.1000, L500.4050, L100.0100, L501.9985 #### [facility] Laboratory [address] [place], [address] MR/Benjamín 03-30-2024 MR/JACOB. [address], [address] [place] [address] OFFICE VISIT Date of Service: 03/30/24 MR#: [id number] Acct: [id number] Name: ITZ VEGAS Rep #: [id number] : 1945 Provider: Dr. 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 Accompanied by: Self Is patient in pain?: No Allergies codeine Allergy (Verified 03/30/24 15:02) Rash Penicillins (PCN) Allergy (Verified 03/30/24 15:02) Rash Medications ???Medication ???Instructions ???Recorded ???Confirmed ???Type tizanidine 4 mg tablet 4 mg PO BID PRN Spasms 08/08/17 03/30/24 History losartan 100 mg tablet 100 mg PO DAILY 09/12/21 03/30/24 History acetaminophen 500 mg oral powder 500 mg PO Q6H PRN 09/13/21 03/30/24 History packet (Tylenol Extra Strength) apixaban 5 mg tablet 5 mg PO BID 09/13/21 03/30/24 History potassium chloride 20 mEq 20 meq PO DAILY 05/13/22 03/30/24 History tablet,extended release(part/cryst) hydrochlorothiazide 25 mg tablet 25 mg PO DAILY #90 tabs 05/14/23 03/30/24 Rx amlodipine 5 mg tablet 5 mg PO DAILY #90 tabs 06/10/23 03/30/24 Rx cholecalciferol (vitamin D3) 50 50 mcg PO DAILY 11/26/23 03/30/24 History mcg (2,000 unit) capsule mecobalamin (vitamin B12) 1,000 1,000 mcg PO DAILY 11/26/23 03/30/24 History mcg chewable tablet zolpidem 10 mg tablet 10 mg PO DAILY 11/26/23 03/30/24 History venlafaxine 150 mg 150 mg PO DAILY 30 days #30 caps 11/27/23 03/30/24 Rx capsule,extended release 24 hr clonazepam 1 mg tablet 1 mg PO BID #60 tabs 02/08/24 03/30/24 Rx mirtazapine 15 mg tablet 15 mg PO QHS #30 tabs 02/08/24 03/30/24 Rx metoprolol succinate 25 mg 25 mg PO DAILY #90 TABLETS 03/28/24 03/30/24 Rx tablet,extended release 24 hr venlafaxine 75 mg capsule,extended 75 mg PO DAILY #30 caps 03/29/24 03/30/24 Rx release 24 hr Have you fallen in the past year?: No Current gender identity: female Nurse's Note: Presents to the office today for follow up. [facility] Medical History Anxiety MDD (major depressive disorder) Osteopenia Gallstones Emotional problems Cancer Arthritis Atrial flutter with rapid ventricular response (08/06/21) Atrial fibrillation with rapid ventricular response (08/11/17) Essential hypertension Skin lesion of breast Erythematous bladder mucosa Skin lesion of face History of skin cancer Near syncope Acute pyelonephritis Long-term use of high-risk medication Postoperative atrial fibrillation (08/11/17) HLD (hyperlipidemia) Surgical History History of right breast biopsy history removal bladder tumors History of laparoscopic cholecystectomy Family History Mother Atrial fibrillation Diabetes Heart disease Parkinson disease Father Atrial fibrillation CVA (cerebral vascular accident) Diabetes Heart disease Cancer lung cancer with mets to spine Brother CVA (cerebral vascular accident) Cancer bladder cancer Brother Cancer lung cancer Social History Smoking Status: Never smoker alcohol intake: never substance use type: does not use what type of physical activity do you participate in: walking and other details: casey PALACIOS History of Present Illness History provided by: patient HPI: Itz Vegas is a 78 year old female who presents today for follow up evaluation. Patient reports that she has been good and bad. Had a few weeks where she was very weepy last week and the week before. She was feeling like she didn't have anyone whom she could call and talk to. Does think that medication is helping to some extent, but things are still in her head. Does feel like slowly she is getting better. 's health has been largely unchanged in recent past. Has been going about 4 days a week to visit him at long term. Denies SI HI or AVH. Review of Systems Constitutional Reports: fatigue Eyes Denies: change in vision or blurry vision Ears, Nose, Mouth, Throat Denies: throat pain, neck pain or change in hearing Cardiovascular Denies: chest pain Respiratory Denies: wheezing Gastrointestinal Reports: heartburn, diarrhea and constipation Genitourinary Denies: dysuria or urinary frequency Musculoskeletal Reports: back pain, joint pain, muscle cramps, muscle weakness and other (stiffness, arthritis, restless leg, leg pain at night ); De (more content not included)... Normal [facility] Basophil percentageOrdered B y: Dr. Jung on 03-05-2023 Chloride [Moles/Vol] 101 mmol/L 98-107 [facility] Glucose [Mass/Vol] 127 mg/dL 74-106 [facility] Comment on above: Fasting Glucose resu lt greater than or equal to 126 mg/dL suggests DIABETES MELLITUS per A.D.A. criteria. Potassium [Moles/Vol] 4.1 mmol/L 3.5-5.1 [facility] Sodium [Moles/Vol] 140 mmol/L 136-145 [facility] Laboratory - Chemistry and C hemistry - challengeOrdered By: Dr. Jung on 03-05-2023 CO2 [Moles/Vol] 33.0 mmol/L 21.0-32.0 [facility] Urea nitrogen/Creatinine [Mass ratio] 22.2 mg/mg 10-20 [facility] No Panel InformationOrdered By: Dr. Jung on 03-05-2023 Estimated GFR (MDRD) Amer 101 mL/min >60 [facility] Comment on above: GFR Calc Estimated GFR (MDRD) Non-Af Amer 83 mL/min >60 [facility] Comment on above: Non- GFR Calc Serum or plasma calcium donny urement (mass/volume)Ordered By: Dr. Jung on 03-05-2023 Calcium [Mass/Vol] 9.4 mg/dL 8.5-10.1 [facility] Serum or plasma creatinine m easurement (mass/volume)Ordered By: Dr. Jung on 03-05-2023 Creatinine [Mass/Vol] 0.72 mg/dL 0.55-1.02 [facility] Comment on above: The validity of the calculated GFR & GFRAA in patients over 70 years has not been determined. Clinical correlation is essential. Serum or plasma urea nitroge n measurement (mass/volume)Ordered By: Dr. Jung on 03-05-2023 Urea nitrogen [Mass/Vol] 16 mg/dL 7-18 [facility] Thin prep Papanicolaou smear with manual screeningOrdered By: Dr. Jung on 03-05-2023 Thin prep Papanicolaou smear with manual screening 6 5-15 [facility] No Panel InformationOrdered By: Dr. Jung on 02-11-2023 Urine Microalbumin/Creatin ine Ratio 8.8 mg/g CRE <30 [facility] Thin prep Papanicolaou smear with manual screeningOrdered By: Dr. Jung on 02-11-2023 Thin prep Papanicolaou smear with manual screening 5.5 mg/L NO RANGE EST. [facility] Urine creatinine measurement (mass/volume)Ordered By: Dr. Jung on 02-11-2023 Creatinine (U) [Mass/Vol] 62.00 mg/dL NO RANGE EST. [facility] Absolute lymphocyte countOrd ered By: Dr. Jung on 02-05-2023 Lymphocytes Auto (Unsp spec) [#/Vol] 1.70 10*3/uL 0.83-4.51 [facility] Basophil percentageOrdered B y: Dr. Jung on 02-05-2023 Basophils/100 WBC (Bld) 0.6 % 0-1 [facility] Chloride [Moles/Vol] 104 mmol/L 98-107 [facility] Eosinophils/100 WBC (Bld) 1.3 % 0-5 [facility] Glucose [Mass/Vol] 92 mg/dL 74-106 [facility] Neutrophils (Bld) [#/Vol] 6.2 10*3/uL 2.0-7.7 [facility] Neutrophils/100 WBC (Bld) 70.5 % 47-70 [facility] Potassium [Moles/Vol] 4.1 mmol/L 3.5-5.1 [facility] Sodium [Moles/Vol] 139 mmol/L 136-145 [facility] WBC (Bld) [#/Vol] 8.8 10*3/uL 4.4-11.0 [facility] Blood erythrocytes count (nu mber/volume)Ordered By: Dr. Jung on 02-05-2023 RBC (Bld) [#/Vol] 4.30 10*6/uL 4.2-5.4 [facility] Blood hemoglobin measurement (mass/volume)Ordered By: Dr. Jung on 02-05-2023 Hemoglobin (Bld) [Mass/Vol] 12.2 g/dL 12.0-15.0 [facility] Blood lymphocytes/100 leukoc ytesOrdered By: Dr. Jung on 02-05-2023 Lymphocytes/100 WBC (Bld) 19.4 % 19-41 [facility] Blood monocytes/100 leukocyt esOrdered By: Dr. Jung on 02-05-2023 Monocytes/100 WBC (Bld) 8.0 % 0-10 [facility] Blood platelet mean volumeOr dered By: Dr. Jung on 02-05-2023 Platelet mean volume (Bld) [Entitic vol] 11.4 fL 6.2-12.0 [facility] Determination of erythrocyte mean corpuscular volume (MCV)Ordered By: Dr. Jung on 02-05-2023 MCV (RBC) [Entitic vol] 88.6 fL 81-99 [facility] Hematocrit Auto (Bld) [Volum e fraction]Ordered By: Dr. Jung on 02-05-2023 Hematocrit (Bld) [Volume fraction] 38.1 % 37-47 [facility] Laboratory - Chemistry and C hemistry - challengeOrdered By: Dr. Jung on 02-05-2023 CO2 [Moles/Vol] 30.0 mmol/L 21.0-32.0 [facility] Urea nitrogen/Creatinine [Mass ratio] 27.5 mg/mg 10-20 [facility] Laboratory - Hematology and Cell countsOrdered By: Dr. Jung on 02-05-2023 Erythrocyte distribution width (RBC) [Entitic vol] 50.8 fL 35.1-43.9 [facility] Erythrocyte distribution width (RBC) [Ratio] 15.7 % 11.6-14.6 [facility] Immature granulocytes/100 WBC (Bld) 0.200 % 0.0-0.9 [facility] Comment on above: IG% - Immature Granu locytes (promyelocytes, myelocytes and metamyelocytes) > 1% indicates that a LEFT SHIFT is Present. MCH (RBC) [Entitic mass] 28.4 pg 27.0-32.0 [facility] Nucleated RBC/100 WBC (Bld) [Ratio] 0 % 0-5 [facility] MCHC Auto (RBC) [Mass/Vol]Or dered By: Dr. Jung on 02-05-2023 MCHC (RBC) [Mass/Vol] 32.0 g/dL 32-36 [facility] No Panel InformationOrdered By: Dr. Jung on 02-05-2023 Estimated GFR (MDRD) Amer 121 mL/min >60 [facility] Comment on above: GFR Calc Estimated GFR (MDRD) Non-Af Amer 100 mL/min >60 [facility] Comment on above: Non- GFR Calc Platelets bldOrdered By: Dr. Jung on 02-05-2023 Platelets (Bld) [#/Vol] 327 10*3/uL 150-450 [facility] Serum or plasma calcium donny urement (mass/volume)Ordered By: Dr. Jung on 02-05-2023 Calcium [Mass/Vol] 9.3 mg/dL 8.5-10.1 [facility] Serum or plasma creatinine m easurement (mass/volume)Ordered By: Dr. Jung on 02-05-2023 Creatinine [Mass/Vol] 0.62 mg/dL 0.55-1.02 [facility] Comment on above: The validity of the calculated GFR & GFRAA in patients over 70 years has not been determined. Clinical correlation is essential. Serum or plasma urea nitroge n measurement (mass/volume)Ordered By: Dr. Jung on 02-05-2023 Urea nitrogen [Mass/Vol] 17 mg/dL 7-18 [facility] Thin prep Papanicolaou smear with manual screeningOrdered By: Dr. Jung on 02-05-2023 Thin prep Papanicolaou smear with manual screening 5 5-15 [facility] Basophil percentageOrdered B y: Dr. Jung on 01-16-2023 Chloride [Moles/Vol] 103 mmol/L 98-107 [facility] Glucose [Mass/Vol] 120 mg/dL 74-106 [facility] Comment on above: Fasting Glucose resu lt from 100 to 125 mg/dL suggests IMPAIRED HOMEOSTASIS per A.D.A. criteria. Potassium [Moles/Vol] 4.1 mmol/L 3.5-5.1 [facility] Sodium [Moles/Vol] 137 mmol/L 136-145 [facility] Laboratory - Chemistry and C hemistry - challengeOrdered By: Dr. Jung on 01-16-2023 CO2 [Moles/Vol] 28.0 mmol/L 21.0-32.0 [facility] Urea nitrogen/Creatinine [Mass ratio] 25.6 mg/mg 10-20 [facility] No Panel InformationOrdered By: Dr. Jung on 01-16-2023 Estimated GFR (MDRD) Amer 87 mL/min >60 [facility] Comment on above: GFR Calc Estimated GFR (MDRD) Non-Af Amer 72 mL/min >60 [facility] Comment on above: Non- GFR Calc Serum or plasma calcium donny urement (mass/volume)Ordered By: Dr. Jung on 01-16-2023 Calcium [Mass/Vol] 9.7 mg/dL 8.5-10.1 [facility] Serum or plasma creatinine m easurement (mass/volume)Ordered By: Dr. Jung on 01-16-2023 Creatinine [Mass/Vol] 0.82 mg/dL 0.55-1.02 [facility] Comment on above: The validity of the calculated GFR & GFRAA in patients over 70 years has not been determined. Clinical correlation is essential. Serum or plasma urea nitroge n measurement (mass/volume)Ordered By: Dr. Jung on 01-16-2023 Urea nitrogen [Mass/Vol] 21 mg/dL 7-18 [facility] Thin prep Papanicolaou smear with manual screeningOrdered By: Dr. Jung on 01-16-2023 Thin prep Papanicolaou smear with manual screening 6 5-15 [facility] Absolute lymphocyte countOrd ered By: Dr. Jung on 01-07-2023 Lymphocytes Auto (Unsp spec) [#/Vol] 2.07 10*3/uL 0.83-4.51 [facility] Basophil percentageOrdered B y: Dr. Jung on 01-07-2023 Basophils/100 WBC (Bld) 0.5 % 0-1 [facility] Bilirubin [Mass/Vol] 0.40 mg/dL 0.20-1.00 [facility] Comment on above: For patients on eltr ombopag therapy, use of Dimension [place] TBIL is not recommended. Chloride [Moles/Vol] 101 mmol/L 98-107 [facility] Eosinophils/100 WBC (Bld) 1.2 % 0-5 [facility] Glucose [Mass/Vol] 126 mg/dL 74-106 [facility] Comment on above: Fasting Glucose resu lt greater than or equal to 126 mg/dL suggests DIABETES MELLITUS per A.D.A. criteria. Neutrophils (Bld) [#/Vol] 7.7 10*3/uL 2.0-7.7 [facility] Neutrophils/100 WBC (Bld) 70.3 % 47-70 [facility] Potassium [Moles/Vol] 3.0 mmol/L 3.5-5.1 [facility] Protein [Mass/Vol] 8.0 g/dL 6.4-8.2 [facility] Sodium [Moles/Vol] 136 mmol/L 136-145 [facility] WBC (Bld) [#/Vol] 10.9 10*3/uL 4.4-11.0 [facility] Blood erythrocytes count (nu mber/volume)Ordered By: Dr. Jung on 01-07-2023 RBC (Bld) [#/Vol] 5.00 10*6/uL 4.2-5.4 [facility] Blood hemoglobin measurement (mass/volume)Ordered By: Dr. Jung on 01-07-2023 Hemoglobin (Bld) [Mass/Vol] 13.8 g/dL 12.0-15.0 [facility] Blood lymphocytes/100 leukoc ytesOrdered By: Dr. Jung on 01-07-2023 Lymphocytes/100 WBC (Bld) 18.9 % 19-41 [facility] Blood monocytes/100 leukocyt esOrdered By: Dr. Jung on 01-07-2023 Monocytes/100 WBC (Bld) 8.6 % 0-10 [facility] Blood platelet mean volumeOr dered By: Dr. Jung on 01-07-2023 Platelet mean volume (Bld) [Entitic vol] 11.5 fL 6.2-12.0 [facility] Determination of erythrocyte mean corpuscular volume (MCV)Ordered By: Dr. Jung on 01-07-2023 MCV (RBC) [Entitic vol] 88.8 fL 81-99 [facility] Hematocrit Auto (Bld) [Volum e fraction]Ordered By: Dr. Jung on 01-07-2023 Hematocrit (Bld) [Volume fraction] 44.4 % 37-47 [facility] Laboratory - Chemistry and C hemistry - challengeOrdered By: Dr. Jung on 01-07-2023 ALP [Catalytic activity/Vol] 103 U/L 45-117 [facility] ALT [Catalytic activity/Vol] 29 U/L 13-56 [facility] CO2 [Moles/Vol] 28.0 mmol/L 21.0-32.0 [facility] Globulin (S) [Mass/Vol] 4.5 g/dL 2.2-4.2 [facility] Urea nitrogen/Creatinine [Mass ratio] 19.3 mg/mg 10-20 [facility] Laboratory - Hematology and Cell countsOrdered By: Dr. Jung on 01-07-2023 Erythrocyte distribution width (RBC) [Entitic vol] 47.5 fL 35.1-43.9 [facility] Erythrocyte distribution width (RBC) [Ratio] 14.7 % 11.6-14.6 [facility] Immature granulocytes/100 WBC (Bld) 0.500 % 0.0-0.9 [facility] Comment on above: IG% - Immature Granu locytes (promyelocytes, myelocytes and metamyelocytes) > 1% indicates that a LEFT SHIFT is Present. MCH (RBC) [Entitic mass] 27.6 pg 27.0-32.0 [facility] Nucleated RBC/100 WBC (Bld) [Ratio] 0 % 0-5 [facility] MCHC Auto (RBC) [Mass/Vol]Or dered By: Dr. Jung on 01-07-2023 MCHC (RBC) [Mass/Vol] 31.1 g/dL 32-36 [facility] No Panel InformationOrdered By: Dr. Jung on 01-07-2023 Estimated GFR (MDRD) Amer 92 mL/min >60 [facility] Comment on above: GFR Calc Estimated GFR (MDRD) Non-Af Amer 76 mL/min >60 [facility] Comment on above: Non- GFR Calc Thyroid Stimulating Hormone (TSH) 1.68 uIU/mL 0.358-3.74 [facility] Vitamin D 25-Hydroxy 42.8 ng/mL [facility] Comment on above: Vitamin D 25(OH) Sta tus Range Deficiency <20 ng/mL (50nmol/L) Insufficiency 20 - 30 ng/mL (50 - 75 nmol/L) Sufficiency 30 - 100 ng/mL (75 - 250 nmol/L) Toxicity >100 ng/mL (>250 nmol/L) Platelets bldOrdered By: Dr. Jung on 01-07-2023 Platelets (Bld) [#/Vol] 384 10*3/uL 150-450 [facility] Serum or plasma albumin donny urement (mass/volume)Ordered By: Dr. Jung on 01-07-2023 Albumin [Mass/Vol] 3.5 g/dL 3.2-5.0 [facility] Serum or plasma albumin/glob ulin mass ratioOrdered By: Dr. Jung on 01-07-2023 Albumin/Globulin [Mass ratio] 0.8 {ratio} 0.9-2.4 [facility] Serum or plasma calcium donny urement (mass/volume)Ordered By: Dr. Jung on 01-07-2023 Calcium [Mass/Vol] 9.8 mg/dL 8.5-10.1 [facility] Serum or plasma creatinine m easurement (mass/volume)Ordered By: Dr. Jung on 01-07-2023 Creatinine [Mass/Vol] 0.78 mg/dL 0.55-1.02 [facility] Comment on above: The validity of the calculated GFR & GFRAA in patients over 70 years has not been determined. Clinical correlation is essential. Serum or plasma urea nitroge n measurement (mass/volume)Ordered By: Dr. Jung on 01-07-2023 Urea nitrogen [Mass/Vol] 15 mg/dL 7-18 [facility] Thin prep Papanicolaou smear with manual screeningOrdered By: Dr. Jung on 01-07-2023 Thin prep Papanicolaou smear with manual screening 26 U/L 15-37 [facility] Thin prep Papanicolaou smear with manual screening 7 5-15 [facility] Absolute lymphocyte countOrd ered By: Dr. Jung on 10-15-2022 Lymphocytes Auto (Unsp spec) [#/Vol] 1.66 10*3/uL 0.83-4.51 [facility] Basophil percentageOrdered B y: Dr. Jung on 10-15-2022 Basophils/100 WBC (Bld) 0.5 % 0-1 [facility] Bilirubin [Mass/Vol] 0.40 mg/dL 0.20-1.00 [facility] Comment on above: For patients on eltr ombopag therapy, use of Dim[place] TBIL is not recommended. Chloride [Moles/Vol] 103 mmol/L 98-107 [facility] Eosinophils/100 WBC (Bld) 2.6 % 0-5 [facility] Glucose [Mass/Vol] 97 mg/dL 74-106 [facility] Neutrophils (Bld) [#/Vol] 5.6 10*3/uL 2.0-7.7 [facility] Neutrophils/100 WBC (Bld) 69.1 % 47-70 [facility] Potassium [Moles/Vol] 4.9 mmol/L 3.5-5.1 [facility] Comment on above: Slight Hemolysis, Re sult may be falsely increased. Protein [Mass/Vol] 7.1 g/dL 6.4-8.2 [facility] Sodium [Moles/Vol] 138 mmol/L 136-145 [facility] WBC (Bld) [#/Vol] 8.2 10*3/uL 4.4-11.0 [facility] Blood erythrocytes count (nu mber/volume)Ordered By: Dr. Jung on 10-15-2022 RBC (Bld) [#/Vol] 4.60 10*6/uL 4.2-5.4 [facility] Blood hemoglobin measurement (mass/volume)Ordered By: Dr. Jung on 10-15-2022 Hemoglobin (Bld) [Mass/Vol] 12.6 g/dL 12.0-15.0 [facility] Blood lymphocytes/100 leukoc ytesOrdered By: Dr. Jung on 10-15-2022 Lymphocytes/100 WBC (Bld) 20.4 % 19-41 [facility] Blood monocytes/100 leukocyt esOrdered By: Dr. Jung on 10-15-2022 Monocytes/100 WBC (Bld) 7.2 % 0-10 [facility] Blood platelet mean volumeOr dered By: Dr. Jung on 10-15-2022 Platelet mean volume (Bld) [Entitic vol] 11.5 fL 6.2-12.0 [facility] Determination of erythrocyte mean corpuscular volume (MCV)Ordered By: Dr. Jung on 10-15-2022 MCV (RBC) [Entitic vol] 89.1 fL 81-99 [facility] Hematocrit Auto (Bld) [Volum e fraction]Ordered By: Dr. Jung on 10-15-2022 Hematocrit (Bld) [Volume fraction] 41.0 % 37-47 [facility] Laboratory - Chemistry and C hemistry - challengeOrdered By: Dr. Jung on 10-15-2022 ALP [Catalytic activity/Vol] 82 U/L 45-117 [facility] ALT [Catalytic activity/Vol] 24 U/L 13-56 [facility] CO2 [Moles/Vol] 28.0 mmol/L 21.0-32.0 [facility] Globulin (S) [Mass/Vol] 3.7 g/dL 2.2-4.2 [facility] Urea nitrogen/Creatinine [Mass ratio] 17.6 mg/mg 10-20 [facility] Laboratory - Hematology and Cell countsOrdered By: Dr. Jung on 10-15-2022 Erythrocyte distribution width (RBC) [Entitic vol] 49.6 fL 35.1-43.9 [facility] Erythrocyte distribution width (RBC) [Ratio] 15.1 % 11.6-14.6 [facility] Immature granulocytes/100 WBC (Bld) 0.200 % 0.0-0.9 [facility] Comment on above: IG% - Immature Granu locytes (promyelocytes, myelocytes and metamyelocytes) > 1% indicates that a LEFT SHIFT is Present. MCH (RBC) [Entitic mass] 27.4 pg 27.0-32.0 [facility] Nucleated RBC/100 WBC (Bld) [Ratio] 0 % 0-5 [facility] MCHC Auto (RBC) [Mass/Vol]Or dered By: Dr. Jung on 10-15-2022 MCHC (RBC) [Mass/Vol] 30.7 g/dL 32-36 [facility] No Panel InformationOrdered By: Dr. Jung on 10-15-2022 Estimated GFR (MDRD) Amer 119 mL/min >60 [facility] Comment on above: GFR Calc Estimated GFR (MDRD) Non-Af Amer 99 mL/min >60 [facility] Comment on above: Non- GFR Calc Thyroid Stimulating Hormone (TSH) 1.94 uIU/mL 0.358-3.74 [facility] Vitamin D 25-Hydroxy 38.2 ng/mL [facility] Comment on above: Vitamin D 25(OH) Sta tus Range Deficiency <20 ng/mL (50nmol/L) Insufficiency 20 - 30 ng/mL (50 - 75 nmol/L) Sufficiency 30 - 100 ng/mL (75 - 250 nmol/L) Toxicity >100 ng/mL (>250 nmol/L) Platelets bldOrdered By: Dr. Jung on 10-15-2022 Platelets (Bld) [#/Vol] 313 10*3/uL 150-450 [facility] Serum or plasma albumin donny urement (mass/volume)Ordered By: Dr. Jung on 10-15-2022 Albumin [Mass/Vol] 3.4 g/dL 3.2-5.0 [facility] Serum or plasma albumin/glob ulin mass ratioOrdered By: Dr. Jung on 10-15-2022 Albumin/Globulin [Mass ratio] 0.9 {ratio} 0.9-2.4 [facility] Serum or plasma calcium donny urement (mass/volume)Ordered By: Dr. Jung on 10-15-2022 Calcium [Mass/Vol] 9.4 mg/dL 8.5-10.1 [facility] Serum or plasma creatinine m easurement (mass/volume)Ordered By: Dr. Jung on 10-15-2022 Creatinine [Mass/Vol] 0.62 mg/dL 0.55-1.02 [facility] Comment on above: The validity of the calculated GFR & GFRAA in patients over 70 years has not been determined. Clinical correlation is essential. Serum or plasma urea nitroge n measurement (mass/volume)Ordered By: Dr. Jung on 10-15-2022 Urea nitrogen [Mass/Vol] 11 mg/dL - [facility] Thin prep Papanicolaou smear with manual screeningOrdered By: Dr. Jung on 10-15-2022 Thin prep Papanicolaou smear with manual screening 22 U/L 15-37 [facility] Comment on above: Slight Hemolysis, Re sult may be falsely increased. Thin prep Papanicolaou smear with manual screening 7 5-15 [facility] Absolute lymphocyte countOrd ered By: Dr. Jung on 07-17-2022 Lymphocytes Auto (Unsp spec) [#/Vol] 1.82 10*3/uL 0.83-4.51 [facility] Basophil percentageOrdered B y: Dr. Jung on 07-17-2022 Basophils/100 WBC (Bld) 0.5 % 0-1 [facility] Bilirubin [Mass/Vol] 0.30 mg/dL 0.20-1.00 [facility] Comment on above: For patients on eltr ombopag therapy, use of Dimension [place] TBIL is not recommended. Chloride [Moles/Vol] 102 mmol/L 98-107 [facility] Eosinophils/100 WBC (Bld) 1.3 % 0-5 [facility] Glucose [Mass/Vol] 118 mg/dL 74-106 [facility] Comment on above: Fasting Glucose resu lt from 100 to 125 mg/dL suggests IMPAIRED HOMEOSTASIS per A.D.A. criteria. Neutrophils (Bld) [#/Vol] 6.6 10*3/uL 2.0-7.7 [facility] Neutrophils/100 WBC (Bld) 70.0 % 47-70 [facility] Potassium [Moles/Vol] 4.2 mmol/L 3.5-5.1 [facility] Comment on above: Slight Hemolysis, Re sult may be falsely increased. Protein [Mass/Vol] 7.3 g/dL 6.4-8.2 [facility] Sodium [Moles/Vol] 137 mmol/L 136-145 [facility] WBC (Bld) [#/Vol] 9.4 10*3/uL 4.4-11.0 [facility] Blood erythrocytes count (nu mber/volume)Ordered By: Dr. Jung on 07-17-2022 RBC (Bld) [#/Vol] 4.43 10*6/uL 4.2-5.4 [facility] Blood hemoglobin measurement (mass/volume)Ordered By: Dr. Jung on 07-17-2022 Hemoglobin (Bld) [Mass/Vol] 12.5 g/dL 12.0-15.0 [facility] Blood lymphocytes/100 leukoc ytesOrdered By: Dr. Jung on 07-17-2022 Lymphocytes/100 WBC (Bld) 19.3 % 19-41 [facility] Blood monocytes/100 leukocyt esOrdered By: Dr. Jung on 07-17-2022 Monocytes/100 WBC (Bld) 8.4 % 0-10 [facility] Blood platelet mean volumeOr dered By: Dr. Jung on 07-17-2022 Platelet mean volume (Bld) [Entitic vol] 11.0 fL 6.2-12.0 [facility] Determination of erythrocyte mean corpuscular volume (MCV)Ordered By: Dr. Jung on 07-17-2022 MCV (RBC) [Entitic vol] 90.3 fL 81-99 [facility] Hematocrit Auto (Bld) [Volum e fraction]Ordered By: Dr. Jung on 07-17-2022 Hematocrit (Bld) [Volume fraction] 40.0 % 37-47 [facility] Laboratory - Chemistry and C hemistry - challengeOrdered By: Dr. Jung on 07-17-2022 ALP [Catalytic activity/Vol] 89 U/L 45-117 [facility] ALT [Catalytic activity/Vol] 31 U/L 13-56 [facility] CO2 [Moles/Vol] 26.0 mmol/L 21.0-32.0 [facility] Globulin (S) [Mass/Vol] 3.9 g/dL 2.2-4.2 [facility] Urea nitrogen/Creatinine [Mass ratio] 16.9 mg/mg 10-20 [facility] Laboratory - Hematology and Cell countsOrdered By: Dr. Jung on 07-17-2022 Erythrocyte distribution width (RBC) [Entitic vol] 47.6 fL 35.1-43.9 [facility] Erythrocyte distribution width (RBC) [Ratio] 14.5 % 11.6-14.6 [facility] Immature granulocytes/100 WBC (Bld) 0.500 % 0.0-0.9 [facility] Comment on above: IG% - Immature Granu locytes (promyelocytes, myelocytes and metamyelocytes) > 1% indicates that a LEFT SHIFT is Present. MCH (RBC) [Entitic mass] 28.2 pg 27.0-32.0 [facility] Nucleated RBC/100 WBC (Bld) [Ratio] 0 % 0-5 [facility] MCHC Auto (RBC) [Mass/Vol]Or dered By: Dr. Jung on 07-17-2022 MCHC (RBC) [Mass/Vol] 31.3 g/dL 32-36 [facility] No Panel InformationOrdered By: Dr. Jung on 07-17-2022 Estimated GFR (MDRD) Amer 94 mL/min >60 [facility] Comment on above: GFR Calc Estimated GFR (MDRD) Non-Af Amer 77 mL/min >60 [facility] Comment on above: Non- GFR Calc Thyroid Stimulating Hormone (TSH) 1.58 uIU/mL 0.358-3.74 [facility] Vitamin D 25-Hydroxy 42.1 ng/mL [facility] Comment on above: Vitamin D 25(OH) Sta tus Range Deficiency <20 ng/mL (50nmol/L) Insufficiency 20 - 30 ng/mL (50 - 75 nmol/L) Sufficiency 30 - 100 ng/mL (75 - 250 nmol/L) Toxicity >100 ng/mL (>250 nmol/L) Platelets bldOrdered By: Dr. Jung on 07-17-2022 Platelets (Bld) [#/Vol] 358 10*3/uL 150-450 [facility] Serum or plasma albumin donny urement (mass/volume)Ordered By: Dr. Jung on 07-17-2022 Albumin [Mass/Vol] 3.4 g/dL 3.2-5.0 [facility] Serum or plasma albumin/glob ulin mass ratioOrdered By: Dr. Jung on 07-17-2022 Albumin/Globulin [Mass ratio] 0.9 {ratio} 0.9-2.4 [facility] Serum or plasma calcium donny urement (mass/volume)Ordered By: Dr. Jung on 07-17-2022 Calcium [Mass/Vol] 9.3 mg/dL 8.5-10.1 [facility] Serum or plasma creatinine m easurement (mass/volume)Ordered By: Dr. Jung on 07-17-2022 Creatinine [Mass/Vol] 0.77 mg/dL 0.55-1.02 [facility] Comment on above: The validity of the calculated GFR & GFRAA in patients over 70 years has not been determined. Clinical correlation is essential. Serum or plasma urea nitroge n measurement (mass/volume)Ordered By: Dr. Jung on 07-17-2022 Urea nitrogen [Mass/Vol] 13 mg/dL 04-14 [facility] Thin prep Papanicolaou smear with manual screeningOrdered By: Dr. Jung on 07-17-2022 Thin prep Papanicolaou smear with manual screening 25 U/L 15-37 [facility] Comment on above: Slight Hemolysis, Re sult may be falsely increased. Thin prep Papanicolaou smear with manual screening 9 5-15 [facility] Absolute lymphocyte counton 04-14-2022 Lymphocytes Auto (Unsp spec) [#/Vol] 2.54 10*3/uL 0.83-4.51 [facility] Work Phone: Basophil percentageon 2021 Basophils/100 WBC (Bld) 0.6 % 0-1 [facility] Work Phone: Bilirubin [Mass/Vol] 0.30 mg/dL 0.20-1.00 [facility] Work Phone: Comment on above: For patients on eltr ombopag therapy, use of Dim[place] TBIL is not recommended. Chloride [Moles/Vol] 102 mmol/L 98-107 [facility] Work Phone: Eosinophils/100 WBC (Bld) 1.8 % 0-5 [facility] Work Phone: [phone] Glucose [Mass/Vol] 108 mg/dL 74-106 [facility] Work Phone: Comment on above: Fasting Glucose resu lt from 100 to 125 mg/dL suggests IMPAIRED HOMEOSTASIS per A.D.A. criteria. Neutrophils (Bld) [#/Vol] 9.2 10*3/uL 2.0-7.7 [facility] Work Phone: Neutrophils/100 WBC (Bld) 70.6 % 47-70 [facility] Work Phone: [phone] Potassium [Moles/Vol] 4.3 mmol/L 3.5-5.1 [facility] Work Phone: [phone] Comment on above: Slight Hemolysis, Re sult may be falsely increased. Protein [Mass/Vol] 7.4 g/dL 6.4-8.2 [facility] Work Phone: Sodium [Moles/Vol] 140 mmol/L 136-145 [facility] Work Phone: WBC (Bld) [#/Vol] 13.0 10*3/uL 4.4-11.0 [facility] Work Phone: [phone] Blood erythrocytes count (nu mber/volume)on 04-14-2022 RBC (Bld) [#/Vol] 4.63 10*6/uL 4.2-5.4 [facility] Work Phone: Blood hemoglobin measurement (mass/volume)on 04-14-2022 Hemoglobin (Bld) [Mass/Vol] 13.6 g/dL 12.0-15.0 [facility] Work Phone: Blood lymphocytes/100 leukoc yteson 04-14-2022 Lymphocytes/100 WBC (Bld) 19.5 % 19-41 [facility] Work Phone: Blood monocytes/100 leukocyt eson 04-14-2022 Monocytes/100 WBC (Bld) 7.0 % 0-10 [facility] Work Phone: [phone] Blood platelet mean volumeon 04-14-2022 Platelet mean volume (Bld) [Entitic vol] 11.4 fL 6.2-12.0 [facility] Work Phone: [phone] Determination of erythrocyte mean corpuscular volume (MCV)on 04-14-2022 MCV (RBC) [Entitic vol] 93.3 fL 81-99 [facility] Work Phone: Hematocrit Auto (Bld) [Volum e fraction]on 04-14-2022 Hematocrit (Bld) [Volume fraction] 43.2 % 37-47 [facility] Work Phone: [phone] Laboratory - Chemistry and C hemistry - challengeon 04-14-2022 ALP [Catalytic activity/Vol] 96 U/L 45-117 [facility] Work Phone: [phone] ALT [Catalytic activity/Vol] 43 U/L 13-56 [facility] Work Phone: [phone] CO2 [Moles/Vol] 30.0 mmol/L 21.0-32.0 [facility] Work Phone: [phone] Globulin (S) [Mass/Vol] 4.0 g/dL 2.2-4.2 [facility] Work Phone: [phone] Urea nitrogen/Creatinine [Mass ratio] 21.0 mg/mg 10-20 [facility] Work Phone: [phone] Laboratory - Hematology and Cell countson 04-14-2022 Erythrocyte distribution width (RBC) [Entitic vol] 49.9 fL 35.1-43.9 [facility] Work Phone: [phone] Erythrocyte distribution width (RBC) [Ratio] 14.6 % 11.6-14.6 [facility] Work Phone: [phone] Immature granulocytes/100 WBC (Bld) 0.500 % 0.0-0.9 [facility] Work Phone: [phone] Comment on above: IG% - Immature Granu locytes (promyelocytes, myelocytes and metamyelocytes) > 1% indicates that a LEFT SHIFT is Present. MCH (RBC) [Entitic mass] 29.4 pg 27.0-32.0 [facility] Work Phone: Nucleated RBC/100 WBC (Bld) [Ratio] 0 % 0-5 [facility] Work Phone: MCHC Auto (RBC) [Mass/Vol]on 04-14-2022 MCHC (RBC) [Mass/Vol] 31.5 g/dL 32-36 [facility] Work Phone: No Panel Informationon 04-14 Estimated GFR (MDRD) Amer 88 mL/min >60 [facility] Work Phone: Comment on above: GFR Calc Estimated GFR (MDRD) Non-Af Amer 73 mL/min >60 [facility] Work Phone: Comment on above: Non- GFR Calc Thyroid Stimulating Hormone (TSH) 1.59 uIU/mL 0.358-3.74 [facility] Work Phone: Vitamin D 25-Hydroxy 37.4 ng/mL [facility] Work Phone: Comment on above: Vitamin D 25(OH) Sta tus Range Deficiency <20 ng/mL (50nmol/L) Insufficiency 20 - 30 ng/mL (50 - 75 nmol/L) Sufficiency 30 - 100 ng/mL (75 - 250 nmol/L) Toxicity >100 ng/mL (>250 nmol/L) Platelets bldon 04-14-2022 Platelets (Bld) [#/Vol] 362 10*3/uL 150-450 [facility] Work Phone: Serum or plasma albumin donny urement (mass/volume)on 04-14-2022 Albumin [Mass/Vol] 3.4 g/dL 3.2-5.0 [facility] Work Phone: Serum or plasma albumin/glob ulin mass ratioon 04-14-2022 Albumin/Globulin [Mass ratio] 0.8 {ratio} 0.9-2.4 [facility] Work Phone: Serum or plasma calcium donny urement (mass/volume)on 04-14-2022 Calcium [Mass/Vol] 9.7 mg/dL 8.5-10.1 [facility] Work Phone: Serum or plasma creatinine m easurement (mass/volume)on 04-14-2022 Creatinine [Mass/Vol] 0.81 mg/dL 0.55-1.02 [facility] Work Phone: Comment on above: The validity of the calculated GFR & GFRAA in patients over 70 years has not been determined. Clinical correlation is essential. Serum or plasma urea nitroge n measurement (mass/volume)on 04-14-2022 Urea nitrogen [Mass/Vol] 17 mg/dL 7-18 [facility] Work Phone: Thin prep Papanicolaou smear with manual screeningon 04-14-2022 Thin prep Papanicolaou smear with manual screening 33 U/L 15-37 [facility] Work Phone: Comment on above: Slight Hemolysis, Re sult may be falsely increased. Thin prep Papanicolaou smear with manual screening 8 5-15 [facility] Work Phone: No Panel Informationon 01-07 Influenza Types A,B Direct FA ([facility]) [facility] Work Phone: Absolute lymphocyte counton 01-02-2022 Lymphocytes Auto (Unsp spec) [#/Vol] 2.45 10*3/uL 0.83-4.51 [facility] Work Phone: Basophil percentageon 2021 Basophils/100 WBC (Bld) 0.5 % 0-1 [facility] Work Phone: Bilirubin [Mass/Vol] 0.50 mg/dL 0.20-1.00 [facility] Work Phone: Comment on above: For patients on eltr ombopag therapy, use of Dim[place] TBIL is not recommended. Chloride [Moles/Vol] 103 mmol/L 98-107 [facility] Work Phone: Eosinophils/100 WBC (Bld) 1.6 % 0-5 [facility] Work Phone: Glucose [Mass/Vol] 96 mg/dL 74-106 [facility] Work Phone: Neutrophils (Bld) [#/Vol] 8.0 10*3/uL 2.0-7.7 [facility] Work Phone: Neutrophils/100 WBC (Bld) 69.2 % 47-70 [facility] Work Phone: Potassium [Moles/Vol] 4.7 mmol/L 3.5-5.1 [facility] Work Phone: Comment on above: Moderate Hemolysis, Result may be falsely increased. Protein [Mass/Vol] 7.7 g/dL 6.4-8.2 [facility] Work Phone: Sodium [Moles/Vol] 135 mmol/L 136-145 [facility] Work Phone: WBC (Bld) [#/Vol] 11.5 10*3/uL 4.4-11.0 [facility] Work Phone: Blood erythrocytes count (nu mber/volume)on 01-02-2022 RBC (Bld) [#/Vol] 4.57 10*6/uL 4.2-5.4 [facility] Work Phone: [phone] Blood hemoglobin measurement (mass/volume)on 01-02-2022 Hemoglobin (Bld) [Mass/Vol] 13.4 g/dL 12.0-15.0 [facility] Work Phone: Blood lymphocytes/100 leukoc yteson 01-02-2022 Lymphocytes/100 WBC (Bld) 21.3 % 19-41 [facility] Work Phone: Blood monocytes/100 leukocyt eson 01-02-2022 Monocytes/100 WBC (Bld) 6.9 % 0-10 [facility] Work Phone: Blood platelet mean volumeon 01-02-2022 Platelet mean volume (Bld) [Entitic vol] 11.3 fL 6.2-12.0 [facility] Work Phone: Determination of erythrocyte mean corpuscular volume (MCV)on 01-02-2022 MCV (RBC) [Entitic vol] 91.0 fL 81-99 [facility] Work Phone: [phone] Hematocrit Auto (Bld) [Volum e fraction]on 01-02-2022 Hematocrit (Bld) [Volume fraction] 41.6 % 37-47 [facility] Work Phone: [phone] Laboratory - Chemistry and C hemistry - challengeon 01-02-2022 ALP [Catalytic activity/Vol] 82 U/L 45-117 [facility] Work Phone: ALT [Catalytic activity/Vol] 29 U/L 13-56 [facility] Work Phone: [phone] CO2 [Moles/Vol] 26.0 mmol/L 21.0-32.0 [facility] Work Phone: [phone] Globulin (S) [Mass/Vol] 3.9 g/dL 2.2-4.2 [facility] Work Phone: [phone] Urea nitrogen/Creatinine [Mass ratio] 20.7 mg/mg 10-20 [facility] Work Phone: [phone] Laboratory - Hematology and Cell countson 01-02-2022 Erythrocyte distribution width (RBC) [Entitic vol] 46.8 fL 35.1-43.9 [facility] Work Phone: [phone] Erythrocyte distribution width (RBC) [Ratio] 13.9 % 11.6-14.6 [facility] Work Phone: [phone] Immature granulocytes/100 WBC (Bld) 0.500 % 0.0-0.9 [facility] Work Phone: [phone] Comment on above: IG% - Immature Granu locytes (promyelocytes, myelocytes and metamyelocytes) > 1% indicates that a LEFT SHIFT is Present. MCH (RBC) [Entitic mass] 29.3 pg 27.0-32.0 [facility] Work Phone: [phone] Nucleated RBC/100 WBC (Bld) [Ratio] 0 % 0-5 [facility] Work Phone: MCHC Auto (RBC) [Mass/Vol]on 01-02-2022 MCHC (RBC) [Mass/Vol] 32.2 g/dL 32-36 [facility] Work Phone: No Panel Informationon 01-02 Estimated GFR (MDRD) Amer 119 mL/min >60 [facility] Work Phone: Comment on above: GFR Calc Estimated GFR (MDRD) Non-Af Amer 98 mL/min >60 [facility] Work Phone: Comment on above: Non- GFR Calc Thyroid Stimulating Hormone (TSH) 1.56 uIU/mL 0.358-3.74 [facility] Work Phone: Vitamin D 25-Hydroxy 41.2 ng/mL [facility] Work Phone: Comment on above: Vitamin D 25(OH) Sta tus Range Deficiency <20 ng/mL (50nmol/L) Insufficiency 20 - 30 ng/mL (50 - 75 nmol/L) Sufficiency 30 - 100 ng/mL (75 - 250 nmol/L) Toxicity >100 ng/mL (>250 nmol/L) Platelets bldon 01-02-2022 Platelets (Bld) [#/Vol] 319 10*3/uL 150-450 [facility] Work Phone: Serum or plasma albumin donny urement (mass/volume)on 01-02-2022 Albumin [Mass/Vol] 3.8 g/dL 3.2-5.0 [facility] Work Phone: Serum or plasma albumin/glob ulin mass ratioon 01-02-2022 Albumin/Globulin [Mass ratio] 1.0 {ratio} 0.9-2.4 [facility] Work Phone: Serum or plasma calcium donny urement (mass/volume)on 01-02-2022 Calcium [Mass/Vol] 9.2 mg/dL 8.5-10.1 [facility] Work Phone: Serum or plasma creatinine m easurement (mass/volume)on 01-02-2022 Creatinine [Mass/Vol] 0.63 mg/dL 0.55-1.02 [facility] Work Phone: Comment on above: The validity of the calculated GFR & GFRAA in patients over 70 years has not been determined. Clinical correlation is essential. Serum or plasma urea nitroge n measurement (mass/volume)on 01-02-2022 Urea nitrogen [Mass/Vol] 13 mg/dL 7-18 [facility] Work Phone: Thin prep Papanicolaou smear with manual screeningon 01-02-2022 Thin prep Papanicolaou smear with manual screening 22 U/L 15-37 [facility] Work Phone: Comment on above: Moderate Hemolysis, Result may be falsely increased. Thin prep Papanicolaou smear with manual screening 6 5-15 [facility] Work Phone: CNOVon 08-27-2017 CNOV Office Visit (GEETAS) -ITZ [place]AS ([id number]) 1945 [facility] Time Provider Jfhxynpycp04/30/17 3:00 PM CAMILA STERLING During your visit today, we recorded the following information about you:Camila Sterling MD 08/30/2017 11:58 AM SignedItz Vegas, a patient of Dr. Gillespie, presented to [facility] with abdominal pain.Found to have acute cholecystitis and underwent urgent laparoscopiccholecystectomy 08/08/17. Had severe cholecystitis which precludedidentification and closure of the cystic duct and therefore partialcholecystectomy done with cuff of proximal gallbladder left and cystic ductleft open. Required ERCP 08/11/17 with stent placement for directionaldrainage.Pathology revealed ANDquot;acute and chronic ulcerated cholecystitisANDquot;.Postope rative recovery complicated by respiratory insufficiency, atrialfibrillation, and kourtney in blood cultures and presently being treated forthis.Past Medical History:hypertensionhyperlipi demiahx of bladder tumorsAtrial fibCandida sepsisPast Surgical History:hysterectomyright breast biopsyTURBBxLaparoscopic cholecystectomy 08/08/17Medications:Aspirin [Aspir-Low] 81 mg PO DAILYAtorvastatin Calcium [Lipitor] 80 mg PO QHSBiotin 2,500 mcg PO DAILYClonidine HCl 0.1 mg PO BIDErgocalciferol [Vitamin D] 125 mg PO QMONTHLosartan/Hydrochlorothi azide [Hyzaar 100-12.5 Tablet] 1 tab PO DAILYMetoprolol [...] Mental Status ChangePENICILLINS 01/27/2013 4 - HivesVICODIN (HYDROCODONE-ACETAMINOPHE*10/2012 1 - Mental Status ChangeDate Reviewed: 08/27/2017Reviewed by: Emanuel Jha LPN - Fully AssessedPrimary Visit Diagnosis:Surgery follow-up examination [...] [Z12.11] INVALID FOR* Status:Closed by MD CAMILA STERLING on 08/30/17 Normal [facility] PROGRESSon 08-27-2017 PROGRESS HNO ID: [id number] thor: Camila Glez: (none)Author Type: PhysicianType: Progress NotesFiled: 08/30/2017 11:58 AMNote Text:Itz Vegas, a patient of Dr. Gillespie, presented to ED [facility] with abdominalpain.Found to have acute cholecystitis and underwent urgent laparoscopiccholecystectomy 08/08/17. Had severe cholecystitis which precludedidentification and closure of the cystic duct and therefore partialcholecystectomy done with cuff of proximal gallbladder left and cysticduct left open. Required ERCP 08/11/17 with stent placement fordirectional drainage.Pathology revealed acute and chronic ulcerated cholecystitis.Postoperative recovery complicated by respiratory insufficiency, atrialfibrillation, and kourtney in blood cultures and presently being treatedfor this.Past Medical History:hypertensionhyperlipi demiahx of bladder tumorsAtrial fibCandida sepsisPast Surgical History:hysterectomyright breast biopsyTURBBxLaparoscopic cholecystectomy 08/08/17Medications:Aspirin [Aspir-Low] 81 mg PO DAILYAtorvastatin Calcium [Lipitor] 80 mg PO QHSBiotin 2,500 mcg PO DAILYClonidine HCl 0.1 mg PO BIDErgocalciferol [Vitamin D] 125 mg PO QMONTHLosartan/Hydrochlorothi azide [Hyzaar 100-12.5 Tablet] 1 tab PO DAILYMetoprolol [...] her primary physician for medical care. Normal [facility] No Panel Information Influenza Types A,B Direct FA ([facility]) [facility] Work Phone: Vital Signs Date Time Vital Sign Value Performing Clinician Krys lawrence 12-28-2024 10:34-0400 Body height 157.5 cm Rere Duncan MD Work Phone: [facility] 12-28-2024 10:34-0400 Body mass index (BMI) [Ratio] 32.37 kg/m2 Rere Duncan MD Work Phone: [facility] 12-28-2024 10:34-0400 Body weight 80.29 kg Rere Duncan MD Work Phone: [facility] 12-28-2024 10:34-0400 Diastolic blood pressure 61 mm[Hg] Rere Duncan MD Work Phone: [facility] 12-28-2024 10:34-0400 Heart rate 58 /min Rere Duncan MD Work Phone: [facility] 12-28-2024 10:34-0400 SaO2% (BldA) [Mass fraction] 96 % Rere Duncan MD Work Phone: [facility] 12-28-2024 10:34-0400 Systolic blood pressure 152 mm[Hg] Rere Duncan MD Work Phone: [facility] 03-12-2023 11:08-0400 Diastolic blood pressure 87 mm[Hg] Dr. Jaya Jung Work Phone: [facility] 03-12-2023 11:08-0400 Systolic blood pressure 127 mm[Hg] Dr. Jaya Jung Work Phone: [facility] 03-12-2023 10:25-0400 Body height 160.[address] Jaya Jung Work Phone: [facility] 03-12-2023 10:25-0400 Body mass index (BMI) [Ratio] 34.7 kg/m2 Dr. Jaya Jung Work Phone: [facility] 03-12-2023 10:25-0400 Body temperature 97.6 [degF] Dr. Jaya Jung Work Phone: [facility] 03-12-2023 10:25-0400 Body weight 89.[address] Jaya Jung Work Phone: [facility] 03-12-2023 10:25-0400 Heart rate 60 /min Dr. Jaya Jung Work Phone: [facility] 03-12-2023 10:25-0400 Respiratory rate 16 /min Dr. Jaya Jung Work Phone: [facility] 03-12-2023 10:25-0400 SaO2% (BldA) [Mass fraction] 96 % Dr. Jaya Jung Work Phone: [facility] 11-14-2022 15:09-0500 Body height 160.[address] Jaya Jung Work Phone: [facility] 11-14-2022 15:09-0500 Body mass index (BMI) [Ratio] 34.5 kg/m2 Dr. Jaya Jung Work Phone: [phone] [place] [address] 11-14-2022 15:09-0500 Body temperature 98 [degF] Dr. Jaya Jung Work Phone: [phone] [place] [address] 11-14-2022 15:09-0500 Body weight 88.[address] Jaya Jung Work Phone: [facility] 11-14-2022 15:09-0500 Diastolic blood pressure 80 mm[Hg] Dr. Jaya Jung Work Phone: [facility] 11-14-2022 15:09-0500 Heart rate 56 /min Dr. Jaya Jung Work Phone: [facility] 11-14-2022 15:09-0500 Respiratory rate 18 /min Dr. Jaya Jung Work Phone: [facility] 11-14-2022 15:09-0500 SaO2% (BldA) [Mass fraction] 93 % Dr. Jaya Jung Work Phone: [facility] 11-14-2022 15:09-0500 Systolic blood pressure 132 mm[Hg] Dr. Jaya Jung Work Phone: [facility] 11-06-2022 11:42-0500 Body mass index (BMI) [Ratio] 33.8 kg/m2 Dr. Jaya Jung Work Phone: [facility] 11-06-2022 11:42-0500 Body weight 86.[address] Jaya Jung Work Phone: [facility] 11-06-2022 11:42-0500 Diastolic blood pressure 53 mm[Hg] Dr. Jaya Jung Work Phone: [facility] 11-06-2022 11:42-0500 Heart rate 54 /min Dr. Jaya Jung Work Phone: [facility] 11-06-2022 11:42-0500 Respiratory rate 16 /min Dr. Jaya Jung Work Phone: [facility] 11-06-2022 11:42-0500 SaO2% (BldA) [Mass fraction] 94 % Dr. Jaya Jung Work Phone: [facility] 11-06-2022 11:42-0500 Systolic blood pressure 107 mm[Hg] Dr. Jaya Jung Work Phone: [facility] 05-13-2022 15:51-0400 Body height 160.[address] Jaya Jung Work Phone: [facility] Work Phone: 05-13-2022 15:51-0400 Body mass index (BMI) [Ratio] 35 kg/m2 Dr. Jaya Jung Work Phone: [facility] Work Phone: 05-13-2022 15:51-0400 Body weight 89.[address] Jaya Jung Work Phone: [facility] Work Phone: 05-13-2022 15:51-0400 Diastolic blood pressure 73 mm[Hg] Dr. Jaya Jung Work Phone: [facility] Work Phone: 05-13-2022 15:51-0400 Heart rate 66 /min Dr. Jaya Jung Work Phone: [facility] Work Phone: 05-13-2022 15:51-0400 Respiratory rate 16 /min Dr. Jaya Jung Work Phone: [facility] Work Phone: 05-13-2022 15:51-0400 SaO2% (BldA) [Mass fraction] 97 % Dr. Jaya Jung Work Phone: [facility] Work Phone: 05-13-2022 15:51-0400 Systolic blood pressure 144 mm[Hg] Dr. Jaya Jung Work Phone: [facility] Work Phone: 02-03-2022 12:52-0400 Body height 160.[address] Jaya Jung Work Phone: [facility] Work Phone: 02-03-2022 12:52-0400 Body mass index (BMI) [Ratio] 33.5 kg/m2 Dr. Jaya Jung Work Phone: [facility] Work Phone: 02-03-2022 12:52-0400 Body weight 85.[address] Jaya Jung Work Phone: [facility] Work Phone: 02-03-2022 12:52-0400 Diastolic blood pressure 84 mm[Hg] Dr. Jaya Jugn Work Phone: [facility] Work Phone: 02-03-2022 12:52-0400 Heart rate 54 /min Dr. Jaya Jung Work Phone: [facility] Work Phone: 02-03-2022 12:52-0400 Respiratory rate 18 /min Dr. Jaya Jung Work Phone: [facility] Work Phone: 02-03-2022 12:52-0400 SaO2% (BldA) [Mass fraction] 94 % Dr. Jaya Jung Work Phone: [facility] Work Phone: 02-03-2022 12:52-0400 Systolic blood pressure 144 mm[Hg] Dr. Jaya Jung Work Phone: [facility] Work Phone: 02-03-2022 12:52-0400 Body height 160.[address] Jaya Jung Work Phone: [facility] Work Phone: 02-03-2022 12:52-0400 Body mass index (BMI) [Ratio] 33.5 kg/m2 Dr. Jaya Jung Work Phone: [facility] Work Phone: 02-03-2022 12:52-0400 Body weight 85.[address] Jaya Jung Work Phone: [facility] Work Phone: 02-03-2022 12:52-0400 Diastolic blood pressure 84 mm[Hg] Dr. Jaya Jung Work Phone: [facility] Work Phone: 02-03-2022 12:52-0400 Heart rate 54 /min Dr. Jaya Jung Work Phone: [facility] Work Phone: 02-03-2022 12:52-0400 Respiratory rate 18 /min Dr. Jaya Jung Work Phone: [facility] Work Phone: 02-03-2022 12:52-0400 SaO2% (BldA) [Mass fraction] 94 % Dr. Jaya Jung Work Phone: [facility] Work Phone: 02-03-2022 12:52-0400 Systolic blood pressure 144 mm[Hg] Dr. Jaya Jung Work Phone: [facility] Work Phone: 12-12-2021 16:07-0400 Diastolic blood pressure 77 mm[Hg] Dr. Jaya Jung Work Phone: [facility] Work Phone: 12-12-2021 16:07-0400 Systolic blood pressure 160 mm[Hg] Dr. Jaya Jung Work Phone: [facility] Work Phone: 12-12-2021 15:48-0400 Body height 160.[address] Jaya Jung Work Phone: [facility] Work Phone: 12-12-2021 15:48-0400 Body mass index (BMI) [Ratio] 33.8 kg/m2 Dr. Jaya Jung Work Phone: [facility] Work Phone: 12-12-2021 15:48-0400 Body temperature 98.1 [degF] Dr. Jaya Jung Work Phone: [facility] Work Phone: 12-12-2021 15:48-0400 Body weight 86.[address] Jaya Jung Work Phone: [facility] Work Phone: 12-12-2021 15:48-0400 Heart rate 52 /min Dr. Jaya Jung Work Phone: [facility] Work Phone: 12-12-2021 15:48-0400 Respiratory rate 20 /min Dr. Jaya Jung Work Phone: [facility] Work Phone: 12-12-2021 15:48-0400 SaO2% (BldA) [Mass fraction] 94 % Dr. Jaya Jung Work Phone: [facility] Work Phone: 09-13-2021 07:28-0500 Body mass index (BMI) [Ratio] 34.9 kg/m2 Dr. Jaya Jung Work Phone: [facility] Work Phone: 09-13-2021 07:28-0500 Body weight 89.[address] Jaya Jung Work Phone: [facility] Work Phone: 09-13-2021 07:28-0500 Diastolic blood pressure 81 mm[Hg] Dr. Jaya Jung Work Phone: [facility] Work Phone: 09-13-2021 07:28-0500 Heart rate 56 /min Dr. Jaya Jung Work Phone: [facility] Work Phone: 09-13-2021 07:28-0500 Respiratory rate 16 /min Dr. Jaya Jung Work Phone: [facility] Work Phone: 09-13-2021 07:28-0500 SaO2% (BldA) [Mass fraction] 94 % Dr. Jaya Jung Work Phone: [facility] Work Phone: 09-13-2021 07:28-0500 Systolic blood pressure 181 mm[Hg] Dr. Jaya Jung Work Phone: [facility] Work Phone: Encounters Encounter Date Encounter Type Care Provider Facility Start: 03-01-2025 End: 03-01-2025 ambulatory Jaya Chi Erich Facility[place] [place] Start: 01-13-2025 End: 01-13-2025 ambulatory Jaya Chi Erich Facility:[facility] [place] Start: 01-11-2025 End: 01-11-2025 ambulatory Jaya Chi [facility] Facility:[facility] Start: 12-28-2024 End: 12-28-2024 Office outpatient new 45 minutes Rere Duncan MD Work Phone: [facility] Cardiology [place] Comment on above: Atrial flutter, unsp ecified type (HCC) (Primary Dx); Persistent atrial fibrillation (HCC); At risk for stroke; Anticoagulant long-term use Start: 12-28-2024 End: 12-28-2024 ambulatory JAYA CHI ERICH Facility:[facility] Start: 12-05-2024 End: 12-05-2024 ambulatory Jaya Chi Erich Facility:[facility] Start: 11-24-2024 End: 11-24-2024 ambulatory Jaya Chi Erich Facility:[facility] Start: 10-30-2024 End: 10-30-2024 Emergency department patient visit Nora Solano Facility:[facility] Start: 10-20-2024 End: 10-20-2024 ambulatory Jose Chase Darin ALLEN Facility:[facility] Start: 10-20-2024 End: 10-20-2024 ambulatory Jaya Chi Erich Facility:[facility] Start: 10-11-2024 ambulatory Jaya Chi Erich Facility:[facility] Start: 10-11-2024 End: 10-11-2024 ambulatory Jaya Chi Erich Facility:[facility] Start: 09-15-2024 End: 09-15-2024 ambulatory Jaya Chi Erich Facility:[facility] Start: 09-14-2024 End: 09-14-2024 ambulatory Moe Mccarthy Facility:[facility] Start: 09-07-2024 End: 09-07-[address] BONNIE JUNG MD Facility:A Start: 09-01-2024 End: 09-05-2024 ambulatory BENNY SMITH MD Facility:[facility] Start: 09-01-2024 End: 09-05-2024 Outreach Lab BENNY SMITH MD [facility] Start: 08-31-2024 End: 09-04-[address] BONNIE JUNG MD Facility:[facility] Start: 08-31-2024 End: 09-04-2024 Outreach Lab BENNY SMITH MD [facility] Start: 08-19-2024 ambulatory Sabra Hugo Facility:[facility] Start: 08-19-2024 End: 08-19-2024 ambulatory Jaya Chi Erich Facility:[facility] Start: 08-16-2024 ambulatory Jaya Chi Erich Facility:[facility] Start: 08-15-2024 ambulatory Jaya Chi Erich [facility] Start: 08-15-2024 End: 08-15-2024 ambulatory Jaya Chi Erich Facility:[facility] Start: 08-02-2024 End: 08-02-2024 ambulatory Jaya Chi Erich Facility:[facility] Start: 07-12-2024 End: 07-12-2024 ambulatory Karl Villar Facility:[facility] Start: 06-15-2024 End: 06-15-2024 ambulatory Moe Mccarthy Facility:[facility] Start: 05-23-2024 End: 05-23-2024 ambulatory Jaya Childress Erich Facility:[facility] Start: 04-11-2024 End: 04-11-2024 ambulatory [facility] Erich Facility:[facility] Start: 03-30-2024 End: 03-30-2024 ambulatory Jaya Monroe Erich Facility:[facility] Start: 09-02-2023 End: 09-03-2023 ambulatory BENNY SMITH MD Facility:[facility] Start: 03-12-2023 End: 03-12-2023 Emergency department patient visit Dr. Jaya Jung Work Phone: [facility]-Emergency Department Start: 03-05-2023 End: 03-05-[address] Jaya Jung Work Phone: [facility]-Laboratory Start: 02-11-2023 End: 02-11-[address] [facility] Start: 02-05-2023 End: 02-05-[address] Jaya Jung Work Phone: [facility] Work Phone: Start: 02-05-2023 End: 02-05-[address] [facility] Start: 01-16-2023 End: 01-16-[address] Jaya Jung Work Phone: [facility] Work Phone: Start: 01-16-2023 End: 01-16-[address] [facility] Start: 01-07-2023 End: 01-07-[address] Jaya Jung Work Phone: [facility]-Laboratory, Phy Office 3rd Flr Start: 01-05-2023 Non-patient / Non-visit Dr. Milan Jung Work Phone: [facility] Start: 01-01-2023 Non-patient / Non-visit Dr. Milan Jung Work Phone: [facility] Start: 01-01-2023 End: 01-01-[address] Jaya Jung Work Phone: [facility] Work Phone: Start: 01-01-2023 End: 01-01-[address] Jaya Jung Work Phone: [facility]-Pulmonary Services/Neurology Start: 11-14-2022 End: 11-14-[address] Jaya Jung Work Phone: [facility] Start: 11-06-2022 End: 11-06-[address] Jaya Jung Work Phone: [facility] Work Phone: Start: 11-06-2022 End: 11-06-[address] Jaya Jung Work Phone: [facility] Start: 11-06-2022 End: 11-06-[address] Jaya Jung Work Phone: [facility] Start: 10-15-2022 End: 10-15-2022 ambulatory [facility] Work Phone: Start: 10-15-2022 End: 10-15-2022 Patient encounter procedure [facility]-Laboratory, Phy Office 3rd Flr Start: 07-17-2022 End: 07-17-[address] Jaya Jung Work Phone: [facility] Work Phone: Start: 07-17-2022 End: 07-17-[address] [facility] Start: 05-26-2022 End: 05-26-[address] Jaya Jung Work Phone: [facility] Work Phone: Start: 05-26-2022 End: 05-26-[address] Jaya Jung Work Phone: [facility]-Physical Therapy Start: 05-21-2022 End: 05-21-2022 Patient encounter procedure BENNY SMITH MD [facility] Start: 05-13-2022 End: 05-13-[address] Jaya Jung Work Phone: [facility] Start: 04-16-[address] Jaya dooley [facility] Start: 04-14-2022 End: 04-14-[address] Jaya Jung Work Phone: [facility], y Office 3rd Flr Start: 02-05-2022 End: 02-05-[address] Jaya Jung Work Phone: [facility]-Outpatient Breast Imaging Start: 02-03-2022 End: 02-03-[address] Jaya Jung Work Phone: [facility] Start: 01-31-2022 Non-patient / Non-visit Dr. Milan Jung Work Phone: [facility] Start: 01-07-2022 End: 01-07-[address] Jaya Jung Work Phone: [facility]-Pulmonary Services/Neurology Start: 01-06-2022 End: 01-06-[address] Jaya Jung Work Phone: [facility]-Radiology, [facility] Start: 01-02-2022 End: 01-02-[address] Jaya Jung Work Phone: [facility]-Laboratory, Phy Office 3rd Flr Start: 12-24-2021 End: 12-24-[address] Jaya Jung Work Phone: [facility]-Pulmonary Services/Neurology Start: 12-12-2021 End: 12-12-[address] Jaya Jung Work Phone: [facility] Start: 09-30-2021 Non-patient / Non-visit Dr. Milan Jung Work Phone: [facility] Start: 09-30-2021 End: 09-30-[address] Jaya Jung Work Phone: [facility]-Cardiovascul ar Services Start: 09-13-2021 End: 09-13-[address] Jaya Jung Work Phone: [facility]-Physical Therapy Start: 09-13-2021 End: 09-13-[address] Jaya Jung Work Phone: [facility] Start: 08-27-2017 End: 08-31-2017 Ambulatory CAMILA STERLING [facility] Procedures Date Procedure Procedure Detail Performing Clinician Start: 12-28-2024 Ecg routine ecg w/le ast 12 lds w/i&r Rere Duncan MD Work Phone: Start: 03-12-2023 CT of head without contrast Dr. Jaya Jung Work Phone: Start: 11-06-2022 Plain chest X-ray Dr. Tone Jung Work Phone: Start: 02-05-2022 Screening mammography Marylou Jung Work Phone: Start: 04-12-2022 Influenza Types A,B Direct FA (MARCO) Dr. Jaya Jung Work Phone: Start: 01-07-2022 End: 01-07-2022 Respiratory syncytial virus antigen assay Dr. Jaya Jung Work Phone: Start: 01-06-2022 Plain chest X-ray Dr. Tone Jugn Work Phone: Start: 09-30-2021 Nuclear Stress Test - Chemical Dr. Jaya Jung Work Phone: Start: 08-31-2020 Transurethral bladde r excision BENNY SMITH MD Start: 09-28-2015 Gallbladder structur e (body structure) BENNY SMITH MD Start: 09-28-2013 Cystoscopy BENNY DUNNE MD Start: 09-28-1997 Hysterectomy BENNY DUNNE MD Influenza Types A,B Direct FA ([facility]) Dr. Jaya Jung Work Phone: Respiratory syncytia l virus antigen assay Dr. Jaya Jung Work Phone: Plan of Treatment Date Care Activity Detail Author Start: 12-20-2025 Urine microalbumin profile DTaP,Tdap,Td Vaccine (2 - Td or Tdap) [facility] Start: 09-28-2024 Advance Directive Discussion Advance Directive Discussion [facility] Start: 05-29-2024 Covid-19 Vaccine ( season) Covid-19 Vaccine ( season) [facility] Start: 2011 Screening for osteoporosis Bone Density Screening [facility] Start: 1996 Pneumococcal Vaccine: 50+ (1 of 1 - PCV) Pneumococcal Vaccine: 50+ (1 of 1 - PCV) [facility] Start: 1991 Diabetes Screening Diabetes Screening [facility] Start: 1964 Annual PCP Team Chronic Disease Visit Annual PCP Team Chronic Disease Visit [facility] Start: 1964 Anxiety Screening Anxiety Screening [facility] Start: 1964 BP Controlled (<130/80) BP Controlled (<130/80) [facility] Start: 1964 Depression Screening Depression Screening [facility] Start: 1964 Hepatitis C screening Hepatitis C Screening [facility] Measurement of respiratory function [facility] Patient Education [facility] Work Phone: Patient referral [facility] Work Phone: [facility] Immunizations Immunization Date Immunization Notes Care Provider Fa leroy 07-12-2024 influenza, seasonal, injectable Rere Dnucan MD Work Phone: [facility] 08-04-2023 respiratory syncytia l virus (RSV) vaccine, adjuvanted (AREXVY) Rere Duncan MD Work Phone: [facility] 07-02-2023 influenza, injectabl e, quadrivalent, contains preservative Rere Duncan MD Work Phone: [facility] 12-27-2021 COVID-19 original vaccine, full dose, monovalent (MODERNA) Rere Duncan MD Work Phone: [facility] 08-16-2020 zoster vaccine recombinant Rere Duncan MD Work Phone: [facility] 07-03-2020 influenza, injectabl e, quadrivalent, contains preservative Rere Duncan MD Work Phone: [facility] 10-20-2019 zoster vaccine recombinant Rere Duncan MD Work Phone: [facility] 06-14-2019 influenza, injectabl e, quadrivalent, contains preservative Rere Duncan MD Work Phone: [facility] 06-28-[address] Jaya Jung Work Phone: [facility] 06-18-2017 influenza, injectabl e, quadrivalent, contains preservative Rere Duncan MD Work Phone: [facility] 06-17-[address] Jaya Jung Work Phone: [facility] 06-10-2016 influenza, seasonal, injectable Rere Duncan MD Work Phone: [facility] 12-21-2015 tetanus toxoid, reduced diphtheria toxoid, and acellular pertussis vaccine, adsorbed Rere Duncan MD Work Phone: [facility] 09-16-2010 zoster vaccine, live Rere Duncan MD Work Phone: [facility] 09-11-2009 novel [id number], preservative-free, injectable Rere Duncan MD Work Phone: [facility] Payers Date Payer Category Payer Self-pay [id number] 2016 [facility] DICARE SUPPLEMENT [id number] 2016 Unknown [id number] 2011 Medicare [id number] 2011 Medicare MEDICARE [id number] 2011 Medicare [id number] 1945 Unknown [id number] [id number]. 2.627 1945 Unknown [id number] 2.16.840.1.674365.3.579. 2.627 1945 Unknown [id number] 2.16.840.1.733529.3.579. 2.627 1945 Unknown [id number] 2.16.840.1.805543.3.579. 2.627 Unknown [id number] 2.16.840.1.004348.3.579. 2.462 Unknown [id number] 2.16.840.1.517132.3.579. 2.462 Unknown [id number] 2.16.840.1.906282.3.579. 2.462 Unknown [id number] 2.16.840.1.048955.3.579. 2.462 Unknown [id number] 2.16.840.1.502607.3.579. 2.462 Unknown [id number] 2.16.840.1.444910.3.579. 2.462 Unknown [id number] 2.16.840.1.596906.3.579. 2.462 Unknown [id number] 2.16.840.1.499057.3.579. 2.462 Unknown [id number] 2.16.840.1.462354.3.579. 2.462 Unknown [id number] 2.16.840.1.534930.3.579. 2.462 Unknown [id number] 2.16.840.1.145606.3.579. 2.462 Unknown [id number] 2.16.840.1.240569.3.579. 2.462 Unknown [id number] 2.16.840.1.984354.3.579. 2.462 Unknown [id number] 2.16.840.1.177482.3.579. 2.462 Unknown [id number] 2.16.840.1.560908.3.579. 2.462 Unknown [id number] 2.16.840.1.522655.3.579. 2.462 Unknown [id number] 2.16.840.1.459166.3.579. 2.462 Unknown [id number] 2.16.840.1.450992.3.579. 2.462 Unknown [id number] 2.16.840.1.166268.3.579. 2.462 Unknown [id number] 2.16.840.1.541950.3.579. 2.462 Unknown [id number] 2.16.840.1.890471.3.579. 2.462 Unknown [id number] 2.16.840.1.249841.3.579. 2.462 Unknown [id number] 2.16.840.1.053716.3.579. 2.462 Unknown [id number] 2.16840.1.958373.3.579. 2.462 Social History Date Type Detail Facility Start: 12-12-2021 End: 03-12-2023 Tobacco smoking status PAIS Unknown if ever smoked [facility] Start: 08-16-2018 None [facility] Start: 1945 Sex Assigned At Female A [facility] Start: 08-30-2020 End: 12-28-2024 Tobacco smoking status Never smoked tobacco (finding) [facility] History of tobacco use Passive smoker [facility] Start: 12-28-2024 Tobacco use and exposure Smokeless tobacco non-user [facility] Start: 12-28-2024 Alcoholic beverage intake Current non-drinker of alcohol (finding) [facility] Start: 12-28-2024 History of Social function [facility] Start: 12-28-2024 Tobacco use panel [facility] National Score (1-10 0), lower number is lower risk 66 [facility] Start: 1945 Sex assigned at Not on file [facility] Goals Date Patient Goal Desired Activity /State Personal health goal Clinical Notes 08-11-2017 to 12-28-2024 Rere Duncan MD - 12/28/2024 10:20 AM EDT Note Date & Type Note Facility 12-28-2024 History of Present illness Narrative PRIMARY CARE PHYSICIAN: Jaya Jung MD [address] [place] [address] REFERRING PHYSICIAN: Rosalind Moses ([facility]) [address] [facility] [id number] Patient Care Team: Jaya Jung Chi as PCP - General (Gerontology) Rosalind Moses PA-C as Physician Parachute/Combatant Diver Officer (Cardiology) Jonathan Gerard MD as Specialty Cooling Tower Operator (Cardiology) CHIEF COMPLAINT: Evaluation of arrhythmia HISTORY OF PRESENT ILLNESS: Ms. Vegas is a 79 year old female who presents today for evaluation of atrial fibrillation, referred by [facility]. The patient is a 79-year-old female with a history of atrial fibrillation, presenting for evaluation. She is accompanied by her daughter, who provides additional history. The patient reports a long-standing history of intermittent atrial fibrillation, which became more frequent and persistent around April of last year. She experienced episodes of palpitations, described as pounding and fluttering sensations, along with rapid heartbeats. Initially, these episodes were brief, but they eventually became constant. She was evaluated with EKGs and cardiac monitoring, confirming the diagnosis of atrial fibrillation. She underwent her first cardioversion in August 2024, which successfully restored normal sinus rhythm. However, approximately three weeks later, she experienced a recurrence of atrial fibrillation with rapid ventricular response, prompting a visit to the ED. During this episode, her heart rate ranged from 150 to 190 bpm. A second cardioversion was performed in the ED in September 2024, which again restored normal rhythm. Since then, she has mostly remained in normal sinus rhythm, with only occasional palpitations noted this morning, attributed to mild stress. She believes that stress, particularly related to her 's Alzheimer's disease and her previous living situation, contributed to her arrhythmias. She reports a significant reduction in stress levels since moving to [facility], where she feels happier and more independent. She also notes ongoing weight loss. She denies any symptoms suggestive of sleep apnea, such as loud snoring, and has never been tested for the condition. She denies any history of diabetes or hypertension. Her past medical history is significant for a cholecystectomy following a ruptured gallbladder, during which she first experienced atrial fibrillation with rapid ventricular response. She was hospitalized for 15 days and was treated with amiodarone, which was later discontinued due to stable cardiac rhythm. She has a history of multiple recent infections, including bronchitis, influenza A, and a dental infection, for which she was treated with azithromycin, cefdinir, clindamycin, Tamiflu, and prednisone. She reports an allergy to penicillin, causing hives, and a previous intolerance to codeine and codeine-like medications, such as Vicodin, which caused mental status changes. However, she recently tolerated codeine without issues. She denies any personal history of smoking but reports significant exposure to secondhand smoke from family members throughout her life. Family history is notable for heart disease, diabetes, and hypertension in her mother, who also had atrial fibrillation. Her father had hypertension, diabetes, prostate cancer, and a history of rapid heartbeats, possibly atrial fibrillation. Her brother, who is , had a stroke in his late 50s and lung cancer. Her living brother has Parkinson's disease but no known cardiac issues. She is currently taking Eliquis for stroke prevention and Cardizem 120 mg BID for rate control. She also takes potassium, Effexor 225 mg daily (150 mg + 75 mg), and [id number] vitamin D3 with vitamin K. I have confirmed and edited as necessary, the PFSH and ROS obtained by others. PAST MEDICAL HISTORY Diagnosis Date Anticoagulant long-term use 12/04/2024 At risk for stroke 12/04/2024 Atrial fibrillation (HCC) Atrial flutter (HCC) Depressed Diabetes mellitus (HCC) Generalized anxiety disorder HTN (hypertension) Hyperlipidemia Insomnia MDD (major depressive disorder) Near syncope Osteopenia Persistent atrial fibrillation (HCC) 12/28/2024 Tinnitus PAST SURGICAL HISTORY Procedure Laterality Date CARDIOVERSION, ELECTIVE, ELECTRICAL CARDIOVERSION, ELECTIVE, ELECTRICAL COLONOSCOPY FLX DX W/COLLJ SPEC WHEN PFRMD Colonoscopy COLONOSCOPY FLX DX W/COLLJ SPEC WHEN PFRMD 02/18/2013 CYSTO W/REMOVAL OF TUMORS SMALL 05/14/2012 Excision bladder tumor LIGATE FALLOPIAN TUBE with IUD removal LUMPECTOMY/RADIOTHERAPY DIAG MAMM/A10 right breast--benign SOCIAL HISTORY Social History Tobacco Use Smoking status: Never Passive exposure: Past (smokers in family: father, ex-, grandmother who lived with her) Smokeless tobacco: Never Substance Use Topics Alcohol use: No Drug use: No FAMILY HISTORY Problem Relation Age of Onset Hypertension Mother Ischemic Heart Disease Mother Diabetes Mother Arrhythmia Mother atrial fibrillation Hypertension Father Diabetes Father Prostate Cancer Father Stroke Father Arrhythmia Father rapid heartbeats Parkinson s Disease Brother Stroke Brother Lung Cancer Brother ALLERGIES: ALLERGIES Allergen Reactions Codeine Mental Status Change Penicillins Hives Vicodin [Hydrocodon* Mental Status Change MEDICATIONS: cholecalciferol (VITAMIN D-3) 5,000 unit tab Take 5,000 Units by mouth once daily. With K cyanocobalamin, vitamin B-12, 5,000 mcg ODT Take 1 tablet by mouth once daily. multivit with minerals/lutein (MULTIVITAMIN 50 PLUS ORAL) Take 1 tablet by mouth once daily. Bifidobacterium Infantis (ALIGN, B.INFANTIS,) 4 mg cap Take 2 capsules by mouth two times a day. gabapentin (NEURONTIN) 100 mg capsule Take 100 mg by mouth three times a day. baclofen 10 mg tablet Take 10 mg by mouth daily at bedtime. DILT-XR 120 mg 24 hr capsule Take 120 mg by mouth two times a day. losartan (COZAAR) 100 mg tablet Take 100 mg by mouth once daily. ELIQUIS 5 mg tab(s) Take 5 mg by mouth two times a day. hydroCHLOROthiazide 25 mg tablet Take 25 mg by mouth once daily. Mirtazapine (REMERON) 7.5 mg tablet Take 7.5 mg by mouth at bedtime as needed. venlafaxine ER (EFFEXOR XR) 150 mg 24 hr capsule Take 150 mg by mouth once daily. venlafaxine ER (EFFEXOR XR) 75 mg 24 hr capsule Take 75 mg by mouth once daily. metoprolol succinate ER (TOPROL XL) 50 mg 24 hr tablet Take 50 mg by mouth two times a day. potassium chloride ER (K-DUR, KLOR-CON) 20 mEq tablet Take 20 mEq by mouth two times a day. REVIEW OF SYSTEMS: Review of Systems Constitutional: Negative for chills and fever. Respiratory: Negative for cough, hemoptysis, sputum production and shortness of breath. Cardiovascular: Positive for palpitations. Negative for chest pain, orthopnea, claudication, leg swelling and PND. Gastrointestinal: Negative for abdominal pain, blood in stool, melena, nausea and vomiting. Genitourinary: Negative for dysuria, flank pain and hematuria. Musculoskeletal: Negative for falls. Skin: Negative for rash. Neurological: Negative for focal weakness, seizures and loss of consciousness. PHYSICAL EXAMINATION: BP 152/61 Pulse 58 Ht 5' 2 (1.58m) Wt 177 lb (80.3kg) SpO2 96% BMI 32.37 kg/(m^2). Physical Exam Vitals reviewed. Constitutional: General: She is not in acute distress. Appearance: Normal appearance. HENT: Head: Normocephalic and atraumatic. Cardiovascular: Rate and Rhythm: Regular rhythm. Bradycardia present. Heart sounds: Normal heart sounds, S1 normal and S2 normal. No murmur heard. No friction rub. Pulmonary: Effort: Pulmonary effort is normal. No respiratory distress. Breath sounds: Normal breath sounds. No wheezing, rhonchi or rales. Musculoskeletal: Cervical back: Neck supple. Skin: General: Skin is warm and dry. Neurological: General: No focal deficit present. Mental Status: She is alert and oriented to person, place, and time. Psychiatric: Mood and Affect: Mood normal. Behavior: Behavior normal. Thought Content: Thought content normal. CARDIOVASCULAR MEDICINE TESTING: Electrocardiogram: Sinus bradycardia 58 bpm; first-degree AV block (CO 212 ms); normal QRS duration 78 ms; QTc 418 ms I have personally reviewed the Electrocardiogram. 1. Atrial flutter, unspecified type (HCC) - ICD9: 427.32, ICD10: I48.92 (primary diagnosis) 2. Persistent atrial fibrillation (HCC) - ICD9: 427.31, ICD10: I48.19 3. At risk for stroke - ICD9: V15.89, ICD10: Z91.89 4. Anticoagulant long-term use - ICD9: V58.61, ICD10: Z79.01 IMPRESSION: 1. Atrial flutter, unspecified type (HCC) (I48.92) 2. Persistent atrial fibrillation Patient has a history of atrial fibrillation/flutter with episodes of rapid ventricular response. Two cardioversions performed: first in August 2024 and second in September 2024. Currently in normal sinus rhythm since the second cardioversion. Previous treatment with amiodarone was discontinued due to stable rhythm. Stress identified as a potential trigger for arrhythmia episodes. - Continue monitoring heart rhythm with current medications. - Discussed potential use of flecainide as a pharmacological cardioversion option if episodes recur; will review patient's profile for suitability. - Educated on lifestyle modifications to reduce triggers, including stress management, avoiding excessive caffeine and alcohol, and maintaining hydration. - Consider catheter ablation if episodes become more frequent or bothersome; discussed procedure details, risks, and benefits. She would like to defer such a procedure for now, as she has been doing well for several months. - Follow-up with Dr. Gerard, she can follow up with me as needed; available for consultation if arrhythmia management requires further intervention. 2. At risk for stroke (Z91.89) Anticoagulant long-term use (Z79.01) Patient is at increased risk for stroke due to atrial fibrillation. Currently on Eliquis for anticoagulation with no reported major bleeding complications, though patient does experience easy bruising. Risk:benefit seems favorable for such treatment. - Continue Eliquis for stroke prevention. - Monitor for any signs of bleeding and report immediately. - Reinforced the importance of anticoagulation therapy in significantly reducing stroke risk. PLAN AND RECOMMENDATIONS: As above. Return if symptoms worsen or fail to improve. Rere Duncan MD 12/28/2024 Medical Decision Making: Problems: Moderate: New problem with uncertain prognosis Data: Unique source(s) for external note(s) reviewed: 1 Unique test result(s) reviewed: 3+ Unique test(s) ordered: 1 Risk: Moderate: Moderate risk from testing/treatment, Drug management and Decision on minor surgery w/ risk factors Medical Decision Making Level: 4 - Moderate documented in this encounter [facility] 12-28-2024 Note HNO ID: [id number] Author: RERE DUNCAN MD Service: ? Author Type: Physician Type: Progress Notes Filed: 12/28/2024 21:26 Note Text: PRIMARY CARE PHYSICIAN: Jaya Jung MD [address] [place] [address] REFERRING PHYSICIAN: Rosalind Moses ([facility]) [address] [facility] [id number] Patient Care Team: Jaya Jung Chi as PCP - General (Gerontology) Rosalind Moses PA-C as Physician Parachute/Combatant Diver Officer (Cardiology) Jonathan Gerard MD as Specialty Cooling Tower Operator (Cardiology) CHIEF COMPLAINT: Evaluation of arrhythmia HISTORY OF PRESENT ILLNESS: Ms. Vegas is a 79 year old female who presents today for evaluation of atrial fibrillation, referred by [facility]. The patient is a 79-year-old female with a history of atrial fibrillation, presenting for evaluation. She is accompanied by her daughter, who provides additional history. The patient reports a long-standing history of intermittent atrial fibrillation, which became more frequent and persistent around April of last year. She experienced episodes of palpitations, described as pounding and fluttering sensations, along with rapid heartbeats. Initially, these episodes were brief, but they eventually became constant. She was evaluated with EKGs and cardiac monitoring, confirming the diagnosis of atrial fibrillation. She underwent her first cardioversion in August 2024, which successfully restored normal sinus rhythm. However, approximately three weeks later, she experienced a recurrence of atrial fibrillation with rapid ventricular response, prompting a visit to the ED. During this episode, her heart rate ranged from 150 to 190 bpm. A second cardioversion was performed in the ED in September 2024, which again restored normal rhythm. Since then, she has mostly remained in normal sinus rhythm, with only occasional palpitations noted this morning, attributed to mild stress. She believes that stress, particularly related to her 's Alzheimer's disease and her previous living situation, contributed to her arrhythmias. She reports a significant reduction in stress levels since moving to [facility], where she feels happier and more independent. She also notes ongoing weight loss. She denies any symptoms suggestive of sleep apnea, such as loud snoring, and has never been tested for the condition. She denies any history of diabetes or hypertension. Her past medical history is significant for a cholecystectomy following a ruptured gallbladder, during which she first experienced atrial fibrillation with rapid ventricular response. She was hospitalized for 15 days and was treated with amiodarone, which was later discontinued due to stable cardiac rhythm. She has a history of multiple recent infections, including bronchitis, influenza A, and a dental infection, for which she was treated with azithromycin, cefdinir, clindamycin, Tamiflu, and prednisone. She reports an allergy to penicillin, causing hives, and a previous intolerance to codeine and codeine-like medications, such as Vicodin, which caused mental status changes. However, she recently tolerated codeine without issues. She denies any personal history of smoking but reports significant exposure to secondhand smoke from family members throughout her life. Family history is notable for heart disease, diabetes, and hypertension in her mother, who also had atrial fibrillation. Her father had hypertension, diabetes, prostate cancer, and a history of rapid heartbeats, possibly atrial fibrillation. Her brother, who is , had a stroke in his late 50s and lung cancer. Her living brother has Parkinson's disease but no known cardiac issues. She is currently taking Eliquis for stroke prevention and Cardizem 120 mg BID for rate control. She also takes potassium, Effexor 225 mg daily (150 mg + 75 mg), and [id number] vitamin D3 with vitamin K. I have confirmed and edited as necessary, the PFSH and ROS obtained by others. PAST MEDICAL HISTORY Diagnosis Date Anticoagulant long-term use 12/04/2024 At risk for stroke 12/04/2024 Atrial fibrillation (HCC) Atrial flutter (HCC) Depressed Diabetes mellitus (HCC) Generalized anxiety disorder HTN (hypertension) Hyperlipidemia Insomnia MDD (major depressive disorder) Near syncope Osteopenia Persistent atrial fibrillation (HCC) 12/28/2024 Tinnitus PAST SURGICAL HISTORY Procedure Laterality Date CARDIOVERSION, ELECTIVE, ELECTRICAL CARDIOVERSION, ELECTIVE, ELECTRICAL COLONOSCOPY FLX DX W/COLLJ SPEC WHEN PFRMD Colonoscopy COLONOSCOPY FLX DX W/COLLJ SPEC WHEN PFRMD 02/18/2013 CYSTO W/REMOVAL OF TUMORS SMALL 05/14/2012 Excision bladder tumor LIGATE FALLOPIAN TUBE with IUD removal LUMPECTOMY/RADIOTHERAPY DIAG MAMM/A10 right breast--benign SOCIAL HISTORY Social History Tobacco Use Smoking (more content not included)... [facility] 01-01-2023 Procedure note [facility] 08-06-2021 Evaluation note Diagnosis Onset Date Atrial flutter with rapid ventricular response August 06, 2021 acute Essential hypertension chron ic HLD (hyperlipidemia) chronic Bradycardia acute Essential hypertension [facility] Work Phone: 1(980) 123-809911-09-2021 Evaluation note* Diagnosis Onset Date Resolution Status Ankle edema acute Atrial flutter with rapid ventricular response Novembe r 2020 acute Essential hypertension [facility] Work Phone: 1(286) 346-432711-09-2021 Evaluation note* Diagnosis Onset Date Resolution Status Atrial flutter with rapid ventricular response Novembe r 2020 acute Bradycardia acute 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 acute Essential hypertension chron ic HLD (hyperlipidemia) chronic Acute bronchitis acute [facility] Work Phone: 1(661) 717-648611-14-2017 Evaluation note* Diagnosis Onset Date Resolution Status Bradycardia acute Essential hypertension chron ic Bradycardia acute Postoperative atrial fibrillation August 11, 2017 acute Essential hypertension chron ic HLD (hyperlipidemia) [facility] Work Phone: [phone] 250-842011-14-2017 Evaluation note* Diagnosis Onset Date Resolution Status Bradycardia acute Postoperative atrial fibrillation August 11, 2017 acute Essential hypertension chron ic HLD (hyperlipidemia) [facility] Work Phone: 1(989) 886-990111-14-2017 Evaluation note* Diagnosis Onset Date Resolution Status Bradycardia acute Postoperative atrial fibrillation August 11, 2017 acute Essential hypertension chron ic HLD (hyperlipidemia) chronic Ankle edema acute Atrial flutter with rapid ventricular response Novembe r 2020 acute Essential hypertension [facility] Work Phone: Discharge summary Author Dr. Rogers [facility] March 12, 2023 12:06pm Note Date/Time March 12, 2023 10:[address] [facility] Medical Records Department [address] [place] [address] Emergency Department Summary 03/12/23 MR#: [id number] Acct: [id number] Name: ITZ VEGAS Rep #:[id number] : 1945 77 From: Neville Rogers MD PCP: Dr. Jaya Jung MD Status:REG E R Location: ED HPI HPI - Fall History of Present Illness Chief Complaint: Fall Detail of Chief Complaint: Fell backwards striking the back of her head Informant: patient and family Occured/Mechanism Occurred: Hours Mechanism/Context: Yes same level fall and Yes slip Narrative: Being up when she lost her balance and fell backwards striking her head Usually ambulates: Without assistance Pain/Injury Pain Location: head Quality of Pain: Dull Current Severity: Mild Maximum Severity: Mild Worsened by: Nothing Relieved by: Nothing Associated Symptoms Associated Symptoms: Negative for Parasthesias, Weakness, Loss of function, Inability to ambulate, Loss of consciousness or Amnesia Narrative Narrative: Patient is a 77-year-old woman who is on Eliquis due to A-fib several years ago after cholecystectomy. There is no history of PE or DVT. She does complain of head pain. She denies headache. Eyes double vision, blurred vision or visual cut. She denies ringing or ears or decreased hearing. She has trouble with speech or swallowing. She denies neck pain. She denies paresthesia, anesthesiaor motor weakness presently at time of the impact. She denies problems with coordination or balance. She denies cardiac or respiratory symptoms. She denies nausea or Tetanus Immunization: 5-10 years Prior similar symptoms: No Recent Illness/Hospitalization: No PFSH [facility] Medical History Acute pyelonephritis Atrial fibrillation with rapid ventricular response (08/11/17) Atrial flutter with rapid ventricular response (08/06/21) Erythematous bladder mucosa Essential hypertension History of skin cancer HLD (hyperlipidemia) Long-term use of high-risk medication Near syncope Postoperative atrial fibrillation (08/11/17) Skin lesion of breast Skin lesion of face Home Medications tizanidine 4 mg tablet 4 mg PO BID PRN Spasms 08/08/17 [History Last Taken 08/07/17 17:00 2 mg] losartan 100 mg tablet 100 mg PO DAILY 09/12/21 [History Last Taken Unknown] acetaminophen 500 mg oral powder packet (Tylenol Extra Strength) 500 mg PO Q6H PRN 09/13/21 [History Last Taken Unknown] apixaban 5 mg tablet 5 mg PO BID 09/13/21 [History Last Taken Unknown] cholecalciferol (vitamin D3) 125 mcg (5,000 unit) capsule 125 mcg PO DAILY 12/12/21 [History Last Taken Unknown] mecobalamin (vitamin B12) 5,000 mcg lozenge 5,000 mcg PO DAILY 12/12/21 [History Last Taken Unknown] clonazepam 1 mg tablet 1 mg PO .QID PRN 02/03/22 [History Last Taken Unknown] metoprolol succinate 25 mg tablet,extended release 24 hr 25 mg PO DAILY This is a decreased dose #90 tabs 04/17/22 [Rx Last Taken Unknown] amlodipine 5 mg tablet 5 mg PO DAILY #90 tabs 05/13/22 [Rx Last Taken Unknown] hydrochlorothiazide 25 mg tablet 25 mg PO DAILY #90 tabs 05/13/22 [Rx Last Taken Unknown] potassium chloride 20 mEq tablet,extended release(part/cryst) 20 meq PO DAILY 05/13/22 [History Last Taken Unknown] amiodarone 200 mg tablet 100 mg PO DAILY #90 tabs 11/06/22 [Rx Last Taken Unknown] doxepin 100 mg capsule 100 mg PO QHS 11/06/22 [History Last Taken Unknown] azithromycin 250 mg tablet See Rx Instructions PO .COMPLEX #6 tabs 11/14/22 [Rx Last Taken Unknown] benzonatate 100 mg capsule 200 mg PO TID PRN cough #30 caps 11/14/22 [Rx Last Taken Unknown] melatonin 3 mg capsule 3 mg PO HS 11/14/22 [History Last Taken Unknown] Allergy/AdvReac Type Severity Reaction Status Date / Time codeine Allergy Rash Verified 03/12/23 10:25 Penicillins [PCN] Allergy Rash Verified 03/12/23 10:25 Family History Mother Atrial fibrillation Diabetes Heart disease Parkinson disease Father Atrial fibrillation CVA (cerebral vascular accident) Diabetes Heart disease Cancer lung cancer with mets to spine Brother CVA (cerebral vascular accident) Cancer bladder cancer Brother Cancer lung cancer Surgical History History of laparoscopic cholecystectomy History of right breast biopsy history removal bladder tumors Social History Smoking Status: Never smoker alcohol intake: never substance use type: does not use ROS ROS ED Constitutional Constitutional ED: Denies chills, fever(s), subjective or sweats Eyes Eyes: Denies blurry vision, change in vision or diplopia ENT ENT ED: Denies ear pain, rhinorrhea or sore throat Cardiovascular Cardiovascular: Denies chest pain, palpitations or racing heartbeat Respiratory/Chest Respiratory/Chest: Denies cough, dyspnea or dyspnea on exertion Gastrointestinal Gastrointestinal: Denies abdominal pain, nausea or vomiting Genitourinary Genitourinary ED: Denies dysuria or hematuria Musculoskeletal Musculoskeletal: Denies arthralgias, back pain, myalgias or neck pain Integumentary Denies Abrasions or rash Neurologic Neurologic: Reports other Details: Further detailed HPI narrative ; Denies headache(s), paresthesias or weakness Psychiatric Psychiatric: Reports anxiety Hematologic/Lymphatic Hematologic/Lymphatic: Denies easy bleeding or easy bruising EXAM Physical Exam Const Vital Signs: 03/12/23 10:25 03/12/23 11:08 Temperature 97.6 F L Temperature Source Temporal Pulse Rate 60 Respiratory Rate 16 Blood Pressure 143/64 H 127/87 H Blood Pressure Mean 90 100 Pulse Ox 96 Oxygen Delivery Method Room Air Positive well nourished, well developed and obese General Appearance ED: well developed and NAD Nutritional Appearance: obese HEENT Reports normocephalic HEENT Narrative: Subcutaneous hematoma noted right parietal occipital region. There is no palpable depression. There is no clinical findings of basilar skull fracture. There is no septal deviation hematoma noted. trauma Eyes PERRL and EOMs intact bilaterally Eyes Narrative: There is no conjunctival hemorrhage. There is no nystagmus. General Eye ED: Negative for pale conjunctiva or scleral icterus Neck full ROM, no lymphadenopathy and supple Neck Narrative: There is no posterior midline palpation. There is full active range of without grimacing or hesitation. Resp normal respiratory effort, no retractions and clear to auscultation bilaterally Cardio regular rate, regular rhythm, S1 normal heart sound, S2 normal heart sound and no murmurs GI non-tender, non-distended and no masses Inspection: abdominal distention Palpation: soft Extremity Extremity Narrative: There is no acrocyanosis, edema or deformity. Neuro oriented x3, CN's II-XII intact bilaterally, moves all extremities, no focal motor deficits and no sensory deficits noted Neuro Narrative: There is no clonus or Babinski sign noted. The metria. Gal Coma Scale: document GCS findings Spontaneous Obeys Commands Oriented 15 Sensorium / Orientation: alert Motor Exam: strength 5/5 throughout Psych mental status grossly normal and thought process normal Skin Skin Narrative: Subcutaneous hematoma previously but otherwise negative MDM MDM MDM Narrative Medical decision making narrative: With history of head trauma on Eliquis CT of the head was obtained to assess for subdural hematoma/traumatic subarachnoid hemorrhage, epidural hematoma and intraparenchymal contusion. Imaging of the C-spine is not indicated per Nexus criteria. Radiography Diagnostic Testing: Clinical Impression(s) from Imaging Studies Brain CT 03/12/23 10:32 IMPRESSION: Chronic involutional changes of the brain. Small scalp hematoma overlying the posterior aspect of the right occipital bone. Electronically Signed: Efrain Rawls MD at 11:44 EDT , CT of the head without contrast reveals no evidence of epidural, subdural hematoma, traumatic subarachnoid hemorrhage or intraparenchymal bleed. Awaiting formal read by radiologist, 1133 Treatment and Re-Evaluation Narrative: There is no disagreement and CAT scan reading therefore will discharge to home Discharge Plan Triage Chief Complaint: Fall Other Complaint: Head Injury ED Provider: Neville Rogers Dx/Rx/DC Orders Clinical Impression: Hematoma of occipital region of scalp, Essential hypertension, HLD (hyperlipidemia), Postoperative atrial fibrillation, CHI (closed head injury), Anticoagulant long- term use Instructions: Concussion Dc Prescriptions: No Action losartan 100 mg tablet 100 mg PO DAILY Eliquis 5 mg tablet 5 mg PO BID Tylenol Extra Strength 500 mg powder in packet 500 mg PO Q6H PRN clonazepam 1 mg tablet 1 mg PO .QID PRN potassium chloride 20 mEq tablet,ER particles/crystals 20 meq PO DAILY Label Comments: TAKE 1 TABLET BY MOUTHCONCE DAILY amlodipine 5 mg tablet 5 mg PO DAILY Qty: 90 3RF hydrochlorothiazide 25 mg tablet 25 mg PO DAILY Qty: 90 3RF mecobalamin (vitamin B12) 5,000 mcg lozenge 5,000 mcg PO DAILY Rx Instructions: allow to dissolve in mouth OR may chew lightly before swallowing cholecalciferol (vitamin D3) 125 mcg (5,000 unit) capsule 125 mcg PO DAILY doxepin 100 mg capsule 100 mg PO QHS amiodarone 200 mg tablet 100 mg PO DAILY Qty: 90 3RF melatonin 3 mg capsule 3 mg PO HS azithromycin 250 mg tablet See Rx Instructions PO .COMPLEX Qty: 6 0RF Rx Instructions: take 500 mg today (day 1), then 250 mg for 4 days (days 2-5) PO benzonatate 100 mg capsule 200 mg PO TID PRN (Reason: cough) Qty: 30 0RF tizanidine 4 MG tablet 4 mg PO BID PRN (Reason: Spasms) metoprolol succinate 25 mg tablet extended release 24 hr 25 mg PO DAILY Qty: 90 3RF Primary Care Provider: Jaya Jung Chi Referrals: Jaya Jung Chi, MD [Primary Care Provider] - As Needed Activity Restrictions/Additional Instructions: 1. Hold your Eliquis for 2 days, 4 doses 2. If you develop a severe headache, nausea vomiting or any concerns return to the emergency department immediately Disposition Disposition: Home, Self Care What to do if you have Problems For any increased pain, shortness of breath, bleeding, nausea or vomiting, chestpain, or any unexpected problems, contact your Primary Care Provider. Call [facility] ([phone]) or report to the closest Emergency Room. Call 911 if necessary. 03/12/23 1206 <Electronically signed by Neville Rogers MD> Cosigner Signature (if applicable): CC: Dr. Jaya Jung MD ~ Signed [facility] Work Phone: Evaluation + Plan note No data available for this section [facility] Evaluation + Plan note Future Appointments Appointment Date:09/07/2024 10:00:00 AM Scheduled Provider:BENNY SMITH MD Location:UROLOGY Appointment Type:URO Off Proc [facility] Evaluation note* Diagnosis Onset Date Resolution Status Bradycardia acute Essential hypertension chron ic [facility] Work Phone: Evaluation noteNo assessment information available [facility] Work Phone: Evaluation note* Diagnosis Onset Date Resolution Status Acute bronchitis acute [facility] Work Phone: Evaluation note* Diagnosis Atrial flutter, unspecified type (HCC)- Primary Persistent atrial fibrillation (HCC) Atrial fibrillation At risk for stroke Other specified personal history presenting hazards to health Anticoagulant long-term use Long-term (current) use of anticoagulants [facility] No data available for this section [facility] Hospital Discharge instructions Additional Instructions 1. Hold your Eliquis for 2 days, 4 doses 2. If you develop a severe headache, nausea vomiting or any concerns return to the emergency department [facility] Work Phone: Progress note No data available for this section [facility] Summary Purpose Family History No Family History Records Found Relationship Condition Age at Onset Recorded Date/T ana lilia mother Atrial fibrillation Unknown Diabetes mellitus Unknown Cardiac disease Unknown father Atrial fibrillation Unknown Cerebrovascular accident (CVA) Unknown Malignant neoplasm Unknown brother Cerebrovascular accident (CVA) Unknown brother Malignant neoplasm Unknown Relationship Condition Age at Onset Recorded Date/T ana lilia mother Atrial fibrillation Unknown Diabetes mellitus Unknown Cardiac disease Unknown Parkinson's disease Unknown father Atrial fibrillation Unknown Cerebrovascular accident (CVA) Unknown Malignant neoplasm Unknown brother Cerebrovascular accident (CVA) Unknown brother Malignant neoplasm Unknown Advance Directives No Advanced Directives Records Found Advance Directive Response Recorded Date/ Time Living Will Yes August 22, 9:11am Power of Leather Roller Yes August 22, 2019 9:11am Advance Directive Response Recorded Date/ Time Living Will Yes August 22 019 8:11am Power of Leather Roller Yes August 22, 2019 8:11am Advance Directive Response Recorded Date/ Time Name of Medical Power of Leather Roller alisa RONQUILLO March 12, 2023 10:28am Living Will Yes March 12, 2023 10:28am Power of Leather Roller Yes March 12 10:28am Chief Complaint and Reason for Visit Chief Complaint ABNORMAL EKG (ERICH) GAIT DIFFICULTY/ FALLS. RX HERE AFIB BP CHECK BRADYCARDIA TESTING Reason for Visit Atrial flutter with rapid ventricular response Essential hypertension HLD (hyperlipidemia) Bradycardia Essential hypertension Chief Complaint AFIB BP CHECK BRADYCARDIA TESTING Reason for Visit Bradycardia Essential hypertension Chief Complaint BP CHECK BRADYCARDIA TESTING Amb Documentation 6-8 WK F/U SCREENING Reason for Visit Bradycardia Essential hypertension Bradycardia Postoperative atrial fibrillation Essential hypertension HLD (hyperlipidemia) Chief Complaint BRADYCARDIA TESTING Amb Documentation 6-8 WK F/U SCREENING FALLS/WEAKNESS. RX HERE Reason for Visit Bradycardia Postoperative atrial fibrillation Essential hypertension HLD (hyperlipidemia) Chief Complaint Amb Documentation 6-8 WK F/U SCREENING 6 M FU FALLS/WEAKNESS. RX HERE Reason for Visit Bradycardia Postoperative atrial fibrillation Essential hypertension HLD (hyperlipidemia) Ankle edema Atrial flutter with rapid ventricular response Essential hypertension Chief Complaint 6 M FU FALLS/WEAKNESS. RX HERE LABWORK Reason for Visit Ankle edema Atrial flutter with rapid ventricular response Essential hypertension Chief Complaint LABWORK Chief Complaint 6 M FU COUGH, HEADACHE Reason for Visit Atrial flutter with rapid ventricular response Bradycardia FPC current use of amiodarone Essential hypertension HLD (hyperlipidemia) Acute bronchitis Chief Complaint 6 M FU COUGH, HEADACHE PAY PER CLICK STRATEGIST DRUG THERAPY SHELTER DRUG THERAPY Amb Documentation Reason for Visit Atrial flutter with rapid ventricular response Bradycardia FPC current use of amiodarone Essential hypertension HLD (hyperlipidemia) Acute bronchitis Chief Complaint COUGH, HEADACHE PAY PER CLICK STRATEGIST DRUG THERAPY SHELTER DRUG THERAPY Amb Documentation fall, hematoma Reason for Visit Acute bronchitis Additional Source Comments INFORMATION SOURCE (unrecogn ized section and content) DATE CREATED AUTHOR 03/23/2018 [facility] DATE CREATED AUTHOR AUTHOR'S ORGANIZ ATION 09/13/2023 [facility] ([place]) DATE CREATED AUTHOR AUTHOR'S ORGANIZ ATION 10/06/2024 [facility] DATE CREATED AUTHOR AUTHOR'S ORGANIZ ATION 10/14/2024 [facility] DATE CREATED AUTHOR AUTHOR'S ORGANIZ ATION 12/31/2024 [facility] DATE CREATED AUTHOR AUTHOR'S ORGANIZ ATION 03/09/2025 [facility] Goals (unrecognized section and content) Goals may be documented in a n alternate sectionGoals may be documented in an alternate sectionGoals may be documented in an alternate sectionGoals may be documented in an alternate sectionGoals may be documented in an alternate section No data available for this sectionGoals may be documented in an alternate sectionGoals may be documented in an alternate sectionGoals may be documented in an alternate sectionGoals may be documented in an alternate sectionGoals may be documented in an alternate sectionGoals may be documented in an alternate sectionGoals may be documented in an alternate sectionGoals may be documented in an alternate section No data available for this section No data available for this section Care Team (unrecognized sect ion and content) Care Team Personnel Name: BONNIE JUNG MD Member Role: Primary Care Physician Address: Address: [facility] [address] [place] [address]- Care Team Related Persons Name: CABRERA HAMMOND Care Teams (unrecognized sec tion and content) Team Status: Active Member Role Status Dates Dr. Jaya Jung MD Family Provider Active Dr. Jaya Jung MD Primary Care Provider Active Team Status: Inactive Member Role Status Dates Dr. Jaya Jung MD Primary Care Provider, Attending Provider Active Team Status: Inactive Member Role Status Dates Dr. Jaya Jung MD Primary Care Provider, Referring Provider Active Cabrera Hale AMALGAMATOR, AMALGAMATOR-C Attending Provider Active Team Status: Inactive Member Role Status Dates Dr. Jaya Jung MD Primary Care Provider, Referring Provider Active Dragan Bird PA, PA Attending Provider Active Team Status: Inactive Member Role Status Dates Dr. Jaya Jung MD Primary Care Provider Active Cabrera Hale AMALGAMATOR, AMALGAMATOR-C Attending Provider Active Team Status: Active Member Role Status Dates Dr. Jaya Jung MD Primary Care Provider Active Caberra Hale AMALGAMATOR, AMALGAMATOR-C Referring Provider, Other Provi more Active Dr. Jens Christine DO Attending Provider Active Team Status: Active Member Role Status Dates Dr. Jaya Jung MD Primary Care Provider Active Jose Webster AMALGAMATOR, AMALGAMATOR-C Attending Provider Active Team Status: Inactive Member Role Status Dates Dr. Jaya Jung MD Primary Care Provider Active Cabrera Hale AMALGAMATOR, AMALGAMATOR-C Attending Provider, Referring P nohemy Active Team Status: Active Member Role Status Dates Dr. Jaya Jung MD Primary Care Provider, Attending Provider Active Team Status: Inactive Member Role Status Dates Dr. Jaya Jung MD Primary Care Provi more, Attending Provider, Referring Provider Active Team Status: Inactive Member Role Status Dates Dr. Jaya Jung MD Primary Care Provider Active Dr. Neville Rogers MD Emergency Provider Active Hr Receptionist Relationship Specialty Start Date End Date Jaya Jung Chi [address] [place] [id number] PCP - General Gerontology 12/04/24 Rosalind Moses PA-C [address] [place] [address] Physician Parachute/Combatant Diver Officer Cardiology 12/04/24 Jonathan Gerard MD [address] [place] [address] Specialty Cooling Tower Operator Cardiology 12/28/24 Source Comments (unrecognize d section and content) In the event this informatio n is protected by the Federal Confidentiality of Alcohol and Drug Abuse Patient Records regulations: The Federal rules restrict any use of the information to criminally investigate or prosecute any alcohol or drug abuse patient.[facility] Reason for Visit (unrecogniz ed section and content) Reason Comments New Patient Ref from [facility] for atr ial flutter FOR RECORDS PERTAINING TO PATIENTS WHO ARE [...] BE BASED ON THE PRIMARY CLINICAL RECORDS. [employer] [facility]. provides no warranty or guarantee of the accuracy or completeness of information in this document.
--- NOTE | 2025-03-11 11:27 | EKG12_ITS ---
Test Reason : POST CARDIOVERSION Blood Pressure : */* mmHG Vent. Rate : 87 BPM Atrial Rate : 87 BPM P-R Int : 180 ms QRS Dur : 80 ms QT Int : 368 ms P-R-T Axes : 69 -5 116 degrees QTcB Int : 442 ms Normal sinus rhythm Cannot rule out Inferior infarct , age undetermined ST & T wave abnormality, consider anterolateral ischemia Abnormal ECG Confirmed by KRISTAL TRINH, GORGE ([id number]), proposal editor UMU HARRIS ([id number]) on 03/14/2025 7:48:54 AM Referred By: Confirmed By: GORGE GIRALDO MD
--- NOTE | 2025-03-11 11:30 | RAD_ITS ---
PROCEDURE: CHEST 1 VIEW (PORTABLE) 03/11/2025 REASON FOR EXAM: CHEST PAIN TECHNIQUE: Frontal view of the chest. COMPARISON: 11/24/2024 FINDINGS: No focal consolidations. No pleural effusion or pneumothorax. Mild pulmonary vascular congestion. Bibasilar subsegmental atelectasis. Stable mild cardiomegaly. Chronic right posterior rib fracture at T5. RAD/Chest 1 View (Portable) IMPRESSION: Mild pulmonary vascular congestion. Stable mild cardiomegaly. No focal consol idations. Reading Location: [id number]
--- NOTE | 2025-03-11 11:31 | EDS_ITS ---
HPI History of Present Illness Chief Complaint: Palpitations Detail of Chief Complaint: A-fib RVR with a history of A-fib. Informant: patient and spouse/S.O. Onset/Context/Timing Onset: Days (Started on .) Activity at onset: gradual Timing: Continuous Narrative Narrative: 79-year-old female diagnosed last April with A-fib. Has been on Eliquis and Cardizem. She has had 2 episodes of A-fib RVR both eventually were cardioverted. 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 States on this week started having A-fib RVR again. Rates been fast. No chest pain. Decided come in the emergency department. She states she has been taking her Cardizem and Eliquis as prescribed. Prior Similar Symptoms: Yes Recent Illness/Hospitalization: No PE Risk Factors: Negative for Recent Travel/Surgery, Recent Immobilization, Prior DVT or PE, Cancer or OCP + Smoking + >/=35 TAD Risk Factors: Negative for Marfan's Syndrome [facility] Medical History Atrial fibrillation with rapid ventricular response (08/11/17) Anxiety MDD (major depressive disorder) Osteopenia Gallstones Emotional problems Cancer Arthritis Atrial flutter with rapid ventricular response (08/06/21) Essential hypertension Skin lesion of breast Erythematous bladder mucosa Skin lesion of face History of skin cancer Near syncope Acute pyelonephritis Long-term use of high-risk medication Postoperative atrial fibrillation (08/11/17) HLD (hyperlipidemia) Home Medications ?Medication ?Instructions ?Recorded ?Last Taken ?Type losartan 100 mg tablet 100 mg PO DAILY 09/12/21 History apixaban 5 mg tablet 5 mg PO BID 09/13/21 5 History potassium chloride 20 mEq 20 meq PO BID 05/13/2203/11 History tablet,extended release(part/cryst) hydrochlorothiazide 25 mg tablet 25 mg PO DAILY #90 ta bs 05/14/23 03/10/25 Rx gabapentin 100 mg capsule 100 mg PO BID 08/02/2403/11 History mirtazapine 7.5 mg tablet 7.5 mg PO QHS #90 tabs 09/1403/10/25 Rx venlafaxine 150 mg 150 mg PO DAILY 90 days #90 caps 03/01/25 03/11/25 Rx capsule,extended release 24 hr venlafaxine 75 mg capsule,extended 75 mg PO DAILY #90 caps 03/01/25 03/11/25 Rx release 24 hr diltiazem HCl 120 mg 120 mg PO BID #180 caps 02/2603/11/25 Rx capsule,extended release 24 hr, controlled acetaminophen 500 mg tablet 500 mg PO Q6H PRN fever or pain 03/11/25 03/10/25 History albuterol sulfate 90 mcg/actuation 2 puff inhalation Q 4H PRN 03/11/25 Unknown History aerosol inhaler shortness of breath or wheez ing baclofen 10 mg tablet 10 mg PO QHS 03/11/25 History metoprolol succinate 50 mg 50 mg PO BID 03/11/2503/11 History tablet,extended release 24 hr Allergy/AdvReac Type Severity Reaction Status Date / Time Penicillins (PCN) Allergy Rash Verified 03/11/25 10:50 Family History Mother Atrial fibrillation Diabetes Heart disease Parkinson disease Father Atrial fibrillation CVA (cerebral vascular accident) Diabetes Heart disease Cancer lung cancer with mets to spine Brother CVA (cerebral vascular accident) Cancer bladder cancer Brother Cancer lung cancer Surgical History History of right breast biopsy history removal bladder tumors History of laparoscopic cholecystectomy Social History Smoking Status: Never smoker alcohol intake: never substance use type: does not use what type of physical activity do you participate in: walking and other details: silver sneakers ROS ROS ED ROS Narrative Rapid heart rate. No chest pain. Constitutional Constitutional ED: Denies chills or fever(s) Eyes Eyes: Reports none ENT ENT ED: Denies ear pain Cardiovascular Cardiovascular: Reports as per HPI, palpitations and racing heartbeat; Denies chest pain Respiratory/Chest Respiratory/Chest: Denies cough Gastrointestinal Gastrointestinal: Denies abdominal pain Genitourinary Genitourinary ED: Denies dysuria Musculoskeletal Musculoskeletal: Denies arthralgias Integumentary Denies abscess Neurologic Neurologic: Denies headache(s) Psychiatric Psychiatric: Denies anxiety Endocrine Endocrinology: Denies cold intolerance Hematologic/Lymphatic Hematologic/Lymphatic: Denies lymphadenopathy Allergic/Immunologic Allergic/Immunologic ED: Denies mouth swelling, tongue swelling or urticaria EXAM Physical Exam Narrative Exam Narrative: Well-appearing 79-year-old female. Vital signs stable except she is in A-fib RVR rate about 135. Sitting upright in bed. Daughter at bedside. H EENT exam pupils round react light. Moist mucous membranes. No trauma. Neck nontender. No JVD. Lungs clear to auscultation bilaterally. Heart A-fib RVR rate about 135-140. Chest wall ribs nontender. Abdomen soft nontender. Moving all 4 extremities. Calves are nontender without edema or cords. Neurologically patient is awake and alert. Answering questions following commands. Const Vital Signs: 03/11/25 10:49 03/11/25 10:49 03/11/25 11:15 Temperature 97 F L Temperature Source Temporal Pulse Rate 139 H 133 H Pulse Rate [1 (Initial Baseline)] Pulse Rate [2] Pulse Rate [3] Respiratory Rate 14 Respiratory Rate [1 (Initial Baseline)] Respiratory Rate [2] Respiratory Rate [3] Respiratory Effort Normal Blood Pressure 129/89 H Blood Pressure [1 (Initial Baseline)] Blood Pressure [2] Blood Pressure [3] Blood Pressure Mean 102 Baseline BP Pulse Ox 98 Oxygen Delivery Method Room Air Oxygen Delivery Method [1 (Initial Baseline)] Oxygen Delivery Method [2] Oxygen Delivery Method [3] Oxygen Flow Rate (L/min) Oxygen Flow Rate (L/min) [1 (Initial Baseline)] Oxygen Flow Rate (L/min) [2] Oxygen Flow Rate (L/min) [3] EtCo2 - Document during CPR and with ROSC EtCo2 - Document during CPR and with ROSC [1 (Initial Baseline)] EtCo2 - Document during CPR and with ROSC [2] EtCo2 - Document during CPR and with ROSC [3] 03/11/25 11:30 03/11/25 11:32 03/11/25 11:46 Temperature Temperature Source Pulse Rate 138 H 68 Pulse Rate [1 (Initial Baseline)] Pulse Rate [2] Pulse Rate [3] Respiratory Rate 16 16 Respiratory Rate [1 (Initial Baseline)] Respiratory Rate [2] Respiratory Rate [3] Respiratory Effort Blood Pressure 117/101 H 102/63 Blood Pressure [1 (Initial Baseline)] Blood Pressure [2] Blood Pressure [3] Blood Pressure Mean 106 76 Baseline BP Pulse Ox 98 97 Oxygen Delivery Method Room Air Room Air Room Air Oxygen Delivery Method [1 (Initial Baseline)] Oxygen Delivery Method [2] Oxygen Delivery Method [3] Oxygen Flow Rate (L/min) Oxygen Flow Rate (L/min) [1 (Initial Baseline)] Oxygen Flow Rate (L/min) [2] Oxygen Flow Rate (L/min) [3] EtCo2 - Document during CPR and with ROSC EtCo2 - Document during CPR and with ROSC [1 (Initial Baseline)] EtCo2 - Document during CPR and with ROSC [2] EtCo2 - Document during CPR and with ROSC [3] 03/11/25 11:59 03/11/25 13:01 03/11/25 14:00 Temperature Temperature Source Pulse Rate 70 71 87 Pulse Rate [1 (Initial Baseline)] Pulse Rate [2] Pulse Rate [3] Respiratory Rate 16 15 16 Respiratory Rate [1 (Initial Baseline)] Respiratory Rate [2] Respiratory Rate [3] Respiratory Effort Blood Pressure 116/73 113/82 H 103/73 Blood Pressure [1 (Initial Baseline)] Blood Pressure [2] Blood Pressure [3] Blood Pressure Mean 87 92 83 Baseline BP Pulse Ox 95 98 98 Oxygen Delivery Method Room Air Room Air Oxygen Delivery Method [1 (Initial Baseline)] Oxygen Delivery Method [2] Oxygen Delivery Method [3] Oxygen Flow Rate (L/min) Oxygen Flow Rate (L/min) [1 (Initial Baseline)] Oxygen Flow Rate (L/min) [2] Oxygen Flow Rate (L/min) [3] EtCo2 - Document during CPR and with ROSC EtCo2 - Document during CPR and with ROSC [1 (Initial Baseline)] EtCo2 - Document during CPR and with ROSC [2] EtCo2 - Document during CPR and with ROSC [3] 03/11/25 14:27 03/11/25 14:27 03/11/25 14:28 Temperature Temperature Source Pulse Rate 79 Pulse Rate [1 (Initial Baseline)] 87 Pulse Rate [2] 88 Pulse Rate [3] 81 Respiratory Rate 14 Respiratory Rate [1 (Initial Baseline)] 18 Respiratory Rate [2] 15 Respiratory Rate [3] 12 Respiratory Effort Blood Pressure 111/88 H Blood Pressure [1 (Initial Baseline)] 110/70 Blood Pressure [2] 110/72 Blood Pressure [3] 117/73 Blood Pressure Mean Baseline BP 111/88 Pulse Ox 95 Oxygen Delivery Method Room Air Oxygen Delivery Method [1 (Initial Baseline)] Room Air Oxygen Delivery Method [2] Room Air Oxygen Delivery Method [3] Nasal Cannula Oxygen Flow Rate (L/min) 0 Oxygen Flow Rate (L/min) [1 (Initial Baseline)] 0 Oxygen Flow Rate (L/min) [2] 0 Oxygen Flow Rate (L/min) [3] 4 EtCo2 - Document during CPR and with ROSC 38 35 EtCo2 - Document during CPR and with ROSC [1 (Initial Baseline)] 33 EtCo2 - Document during CPR and with ROSC [2] 35 EtCo2 - Document during CPR and with ROSC [3] 36 03/11/25 14:32 03/11/25 14:37 03/11/25 14:42 Temperature Temperature Source Pulse Rate 86 80 88 Pulse Rate [1 (Initial Baseline)] Pulse Rate [2] Pulse Rate [3] Respiratory Rate 12 15 15 Respiratory Rate [1 (Initial Baseline)] Respiratory Rate [2] Respiratory Rate [3] Respiratory Effort Blood Pressure 117/73 111/72 113/75 Blood Pressure [1 (Initial Baseline)] Blood Pressure [2] Blood Pressure [3] Blood Pressure Mean Baseline BP Pulse Ox 95 96 95 Oxygen Delivery Method Room Air Room Air Room Air Oxygen Delivery Method [1 (Initial Baseline)] Oxygen Delivery Method [2] Oxygen Delivery Method [3] Oxygen Flow Rate (L/min) 0 0 0 Oxygen Flow Rate (L/min) [1 (Initial Baseline)] Oxygen Flow Rate (L/min) [2] Oxygen Flow Rate (L/min) [3] EtCo2 - Document during CPR and with ROSC 35 35 35 EtCo2 - Document during CPR and with ROSC [1 (Initial Baseline)] EtCo2 - Document during CPR and with ROSC [2] EtCo2 - Document during CPR and with ROSC [3] 03/11/25 14:57 03/11/25 16:00 03/11/25 17:00 Temperature Temperature Source Pulse Rate 89 92 92 Pulse Rate [1 (Initial Baseline)] Pulse Rate [2] Pulse Rate [3] Respiratory Rate 15 21 H 12 Respiratory Rate [1 (Initial Baseline)] Respiratory Rate [2] Respiratory Rate [3] Respiratory Effort Blood Pressure 111/72 122/73 H 176/85 H Blood Pressure [1 (Initial Baseline)] Blood Pressure [2] Blood Pressure [3] Blood Pressure Mean 85 89 115 Baseline BP Pulse Ox 94 95 99 Oxygen Delivery Method Room Air Room Air Room Air Oxygen Delivery Method [1 (Initial Baseline)] Oxygen Delivery Method [2] Oxygen Delivery Method [3] Oxygen Flow Rate (L/min) Oxygen Flow Rate (L/min) [1 (Initial Baseline)] Oxygen Flow Rate (L/min) [2] Oxygen Flow Rate (L/min) [3] EtCo2 - Document during CPR and with ROSC EtCo2 - Document during CPR and with ROSC [1 (Initial Baseline)] EtCo2 - Document during CPR and with ROSC [2] EtCo2 - Document during CPR and with ROSC [3] 03/11/25 17:06 Temperature 97.6 F L Temperature Source Pulse Rate 90 Pulse Rate [1 (Initial Baseline)] Pulse Rate [2] Pulse Rate [3] Respiratory Rate 16 Respiratory Rate [1 (Initial Baseline)] Respiratory Rate [2] Respiratory Rate [3] Respiratory Effort Blood Pressure 176/85 H Blood Pressure [1 (Initial Baseline)] Blood Pressure [2] Blood Pressure [3] Blood Pressure Mean 115 Baseline BP Pulse Ox 98 Oxygen Delivery Method Oxygen Delivery Method [1 (Initial Baseline)] Oxygen Delivery Method [2] Oxygen Delivery Method [3] Oxygen Flow Rate (L/min) Oxygen Flow Rate (L/min) [1 (Initial Baseline)] Oxygen Flow Rate (L/min) [2] Oxygen Flow Rate (L/min) [3] EtCo2 - Document during CPR and with ROSC EtCo2 - Document during CPR and with ROSC [1 (Initial Baseline)] EtCo2 - Document during CPR and with ROSC [2] EtCo2 - Document during CPR and with ROSC [3] Positive well nourished and well developed; Negative for cachectic, contractures or unkempt General Appearance ED: well developed; Negative for unkempt, cachectic, contractures, NAD or pallor Nutritional Appearance: Negative for cachectic HEENT Reports moist mucous membranes normocephalic and atraumatic Eyes PERRL and EOMs intact bilaterally General Eye ED: Negative for pale conjunctiva or scleral icterus Neck no lymphadenopathy, supple and no JVD General: Negative for tenderness Chest Wall inspection of chest normal and palpation of chest normal Chest: Negative for tenderness Resp normal respiratory effort and clear to auscultation bilaterally Effort and Inspection: Negative for respiratory distress Auscultation: Negative for rales, rhonchi or wheezes Cardio no murmurs; Negative for regular rate or regular rhythm Rate: tachycardic and other Other Details: A-fib RVR rate 135-140. GI normal to inspection, nondistended, normoactive bowel sounds, soft to palpation, non-tender, non-distended and no masses Back/Spine no CVA tenderness and no thoracic nor lumbar tenderness Extremity normal to inspection General Extremety ED: Negative for edema General Extremity: Negative for edema Neuro oriented x3 and CN's II-XII intact bilaterally Sensorium / Orientation: awake, alert, oriented to person, oriented to place and oriented to time; Negative for confused Motor Exam: strength 5/5 throughout Psych mental status grossly normal Appearance: Negative for unkempt Attitude: No agitated Mood & Affect: Negative for depressed, anxious or tearful Skin no rashes or lesions noted and no wounds General Skin Exam: Negative for jaundice or pallor Rashes: No rashes noted Trauma: Negative for abrasion or laceration MDM MDM MDM Narrative Medical decision making narrative: 71-year-old female history of A-fib. A-fib RVR since . On Eliquis and Cardizem. She will be given IV Cardizem bolus and reassess. Cardiac workup. If she remains in A-fib RVR she may have to go on either Cardizem drip or be cardioverted. Repeat exam patient doing well at 4:50 PM. She feels comfortable being discharged home. She remains in sinus rhythm in the 80s. History & Record Review Discussion w/independent historian: Patient and Family Additional record(s) reviewed:: Prior inpatient record, Prior outpatient record, Prior ED visit and Prior labs Lab Data Attestation: I reviewed the patient's lab results. Lab results narrative: CBC white count of 14. H&H 14 and 43. Platelets 341. Electrolytes show gap 14. Beta creatinine of thirteen 0.6. Glucose 132. Initial troponin 18. Second troponin 21. Labs: Laboratory Results - last 24 hr 03/11/25 03/11/25 11:13 13:24 WBC 14.2 H RBC 4.54 Hgb 14.4 Hct 43.7 MCV 96.3 MCH 31.7 MCHC 33.0 RDW Std Deviation 43.8 RDW Coeff of Brittney 12.4 Plt Count 341 MPV 11.0 Immature Gran % (Auto) 0.400 Neut % (Auto) 72.7 H Lymph % (Auto) 18.3 L Kaufman % (Auto) 7.4 Eos % (Auto) 0.6 Baso % (Auto) 0.6 Absolute Neuts (auto) 10.4 H Absolute Lymphs (auto) 2.60 Nucleated RBC % 0 Sodium 140 Potassium 4.3 Chloride 102 Carbon Dioxide 23.4 Anion Gap 14 BUN 13 Creatinine 0.67 L Estim Creat Clear Calc 56.89 Est GFR (MDRD) Non-Af 90 BUN/Creatinine Ratio 19.5 Glucose 132 H Calcium 9.9 Troponin T High Sens 18 H Troponin T Hi Sens 2 Hr 21 H Radiography Chest X-Ray - ED: Read by ED Physician, Mediastinum, Bony Structures, Chronic Changes, Cardiomegaly and CHF Diagnostic Testing: Clinical Impression(s) from Imaging Studies Chest X-Ray 03/11/25 11:30 IMPRESSION: Mild pulmonary vascular congestion. Stable mild cardiomegaly. No focal consolidations. Reading Location: [facility] Chest x-ray, portable, single view shows borderline cardiomegaly. Vascular congestion consistent with mild CHF. No effusions. No pneumonia. Interpreted both by myself and the radiologist. Rhythm Strip Rhythm Strip: A-fib Rate: 139 Ectopy: None EKG Initial EKG: Attestation: I personally reviewed and interpreted this EKG as follows: Interpretation: Atrial Fibrillation Comments: A-fib rate 139. Rate dependent ST depression and T wave version in V2 through V6. Follow-up EKG: Attestation: I personally reviewed and interpreted this EKG as follows: Interpretation: Sinus Rhythm and No Acute Injury Pattern Comments: EKG done post cardioversion. Shows sinus rhythm. Rate of 87. Again as T wave inversion ST depression in the 3 through V6. She is having no chest pain. Cardiac enzymes are negative. She will be discharged home. Procedures Procedural Sedation 1 (Initial Baseline): Consent Signed: Yes Any Problems With Anesthesia: No You/Your family experience fever (hyperthermia) w/anesthesia: No Sedation medication: Propofol Dose: 40 Route: IV Total Moderate Sedation Units: 15 [facility] Score: Class II ASA Classification: II Comment:: Procedural sedation with propofol. 40 mg given. Proper anesthesia. Cardioverted using a single shock of 3 to 60 mg. Patient immediately went into a sinus rhythm. She did well. There was no significant change in her vital signs she never became hypoxic. On repeat exam she is doing well post procedural sedation. Critical Care Time Critical Care Time: Yes Critical care time (excluding procedures): 30-74 minutes, Including time spent:, Discussing w/Patient &/or Family/[facility] [employer], Discussing w/Consultants, Arranging Admission or Transfer, Performing Direct Patient Care at Bedside and - (40 minutes.) Discharge Plan Triage Chief Complaint: Palpitations ED Provider: Deon Bearden Dx/Rx/DC Orders Clinical Impression: Atrial fibrillation with rapid ventricular response, Chronic anticoagulation Instructions: ED AFIB Prescriptions: No Action losartan 100 mg tablet 100 mg PO DAILY Patient Comments: PT TAKES AT NIGHT. Eliquis 5 mg tablet 5 mg PO BID potassium chloride 20 mEq tablet,ER particles/crystals 20 meq PO BID gabapentin 100 mg capsule 100 mg PO BID mirtazapine 7.5 mg tablet 7.5 mg PO QHS Qty: 90 1RF venlafaxine 150 mg capsule,extended release 24hr 150 mg PO DAILY 90 Days Qty: 90 1RF venlafaxine 75 mg capsule,extended release 24hr 75 mg PO DAILY Qty: 90 1RF Rx Instructions: To be taken with 150 mg capsule for total daily dose of 225 mg acetaminophen 500 mg tablet 500 mg PO Q6H PRN (Reason: fever or pain) metoprolol succinate 50 mg tablet extended release 24 hr 50 mg PO BID albuterol sulfate 90 mcg/actuation HFA aerosol inhaler 2 puff INHALATION Q4H PRN (Reason: shortness of breath or wheezing) baclofen 10 mg tablet 10 mg PO QHS hydrochlorothiazide 25 mg tablet 25 mg PO DAILY Qty: 90 3RF Patient Comments: PT TAKES AT NIGHT. diltiazem HCl 120 mg capsule,ext.rel 24h degradable 120 mg PO BID Qty: 180 3RF Primary Care Provider: Jaya Jung Chi Referrals: Jaya Jung Chi, MD [Primary Care Provider] - As Needed Activity Restrictions/Additional Instructions: A-fib RVR if you go back in A-fib and your rapid rate return. Continue your current medications. Do not drive for the next 24 hours due to the sedation we gave you. 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 Print Language: Zambian Disposition Disposition: Home, Self Care
[2025-03-11] MEDS: dilTIAZem 25 MG/5 ML Vial IV BOLUS (11:37)
[2025-03-11 11:42] LABS: Absolute Neutrophil Count 10.4 X10^3/uL (2.0-7.7); Basophil# 0.08 X10^3/uL; Basophil% 0.6 % (0-1); Eosinophil# 0.09 X10^3/uL; Eosinophils% 0.6 % (0-5); Hematocrit 43.7 % (37-47); Hemoglobin 14.4 g/dL (12.0-15.0); Lymphocyte % 18.3 % (19-41); Mean Corpuscular Hgb 31.7 pg (27.0-32.0); Mean Corpuscular Volume 96.3 fL (81-99); Monocyte# 1.06 X10^3/uL; Monocyte% 7.4 % (0-10); NRBC Flagged by Analyzer 0 % (0-5); Neutrophil # 10.35 X10^3/uL (2.7-7.7); Neutrophil % 72.7 % (47-70); Platelet Count 341 K/mm3 (150-450); RBC Distribution Width CV 12.4 % (11.6-14.6); RBC Distribution Width SD 43.8 fl (35.1-43.9); Red Blood Count 4.54 M/mm3 (4.2-5.4); White Blood Count 14.2 K/mm3 (4.4-11.0)
[2025-03-11 12:41] LABS: Anion Gap 14 (5-15); BUN 13 mg/dL (4-19); BUN/Creat Ratio 19.5 RATIO (10-20); Calcium,Total 9.9 mg/dL (7.6-11.0); Carbon Dioxide 23.4 mmol/L (21.0-32.0); Chloride 102 mmol/L (98-108); Creatinine, Serum 0.67 mg/dL (0.70-1.20); EST Glomerular Filtration Rate 90 (>60); Estimated Creatinine Clearance 56.89 ml/min (50-250); Glucose 132 mg/dL (70-99); Potassium 4.3 mmol/L (3.3-5.1); Sodium Level 140 mmol/L (133-145); Troponin T High Sensitivity 18 ng/L (<=14)
--- NOTE | 2025-03-11 13:40 | CM.ED ---
Social Work Date of referral: 03/11/25 Reason For Referral: Request for Advanced Care Directives (ACD's)Needed Referred by: Social Work Identification Patient provided consent to Social Work visit. electrical maintenance worker requested patient bring in a copy of ACD's either during next visit or when out in the community (can drop off). Patient agreeable. Gris Maddox, BIGG, PARTS ROOM ASSOCIATE, 03/11/2025
[2025-03-11 14:22] LABS: Troponin T High Sens 2 HR 21 ng/L (<=14)
[2025-03-11] MEDS: Propofol 200 MG/20 ML Vial 40 MG IV BOLUS (14:28)
--- NOTE | 2025-03-11 14:46 | EKG12_ITS ---
Test Reason : Blood Pressure : */* mmHG Vent. Rate : 139 BPM Atrial Rate : 139 BPM P-R Int : 188 ms QRS Dur : 80 ms QT Int : 308 ms P-R-T Axes : 47 -9 141 degrees QTcB Int : 468 ms Critical Test Result: STEMI ATRIAL FIB:FLUTTER WITH 2:1 Consider right ventricular involvement in acute inferior infarct Abnormal ECG When compared with ECG of 30-Oct-2024 22:13, Significant changes have occurred Confirmed by KRISTAL TRINH, GORGE ([id number]), writer editor AURELIO TUCKER ([id number]) on 03/15/2025 7:27:51 AM Referred By: Confirmed By: GORGE GIRALDO MD
--- NOTE | 2025-03-11 18:07 | ED.RN ---
Updated nurse at [place] regarding pt's condition, questions/concerns answered
--- NOTE | 2025-03-11 18:10 | ED.RN ---
Nurse from [facility] updated on pt's condition and status, questions/concerns answered.
== END 2025-03-11 18:11 | disposition home or self-care (01) ==
PROVIDERS: Emergency Provider Emergency Medicine; PCP Family Medicine Geriatric Medicine; Visit Provider Emergency Medicine
DX: I48.91 Unspecified atrial fibrillation (principal); I10 Essential (primary) hypertension; E78.5 Hyperlipidemia, unspecified; Z79.01 Long term (current) use of anticoagulants; Z79.51 Long term (current) use of inhaled steroids; Z79.899 Other long term (current) drug therapy
CPT/HCPCS: 71045; 80048; 84484; 85025; 92960; 93005; 96374; 99284; A4216

== ENCOUNTER 2025-04-17 09:51 | Day surgery (SDC) | payer MEDICARE, BC, SELFPAY ==
--- NOTE | 2025-04-17 09:52 | HP_ITS ---
History of Present Illness Details: ITZ VEGAS, is a 79 F who presents for DC cardioversion. She had walked into the office a few days ago with palpitations and was noted to be in atrial fibrillation with a rapid ventricular response rate. She was started on amiodarone in addition to her regular medications. She does have a history of hypertension, diabetes, tinnitus, and a previous history of atrial fibrillation which occurred postoperatively. At that time she had an echocardiogram done which was normal and troponins were also noted to be normal. She was discharged on amiodarone and then this was subsequently discontinued. She had apparently been doing well but has recently been under a lot of stress for condition because of her 's health status as well as her dog who suddenly . She noted irregular heartbeats on her apple watch was transmitted and did confirm what appeared to be atrial flutter with a rate of approximately 122 bpm. She was started on Eliquis and Amiodarone. She underwent a stress test 09/30/2021 which was negative for ischemia. An echocardiogram also demonstrated an ejection fraction of 60%, moderate left atrial enlargement and pulm artery systolic pressure of 48 mmHg. A subsequent Holter monitor in November 2021 demonstrated no atrial fibrillation or flutter and an average heart rate of 54 bpm. Her amiodarone was discontinued due to the results of her PFT. Patient was seen by Dr. Vargas in December of 2024. She was noted to be maintaining sinus rhythm. She did undergo a cardioversion in August 2024 and the second in September 2024. It was identified that stress is a trigger for her arrhythmia episodes. It was recommended that if her episodes become more frequent or bothersome that she could be considered for catheter ablation. Patient presented to the emergency room on 03/11/2025 with complaints of atrial fibrillation. She was given an IV Cardizem bolus which did bring her heart rate down until she got up to go to the bathroom. She remained in atrial fibrillation RVR, and underwent a successful cardioversion in the emergency room. She presented to the office again with atrial fibrillation and she is being considered for cardioversion. From a cardiac standpoint, the patient is doing well. She denies any palpitations, chest pain, pressure or heaviness. She denies SOB, Orthopnea, and PND. She does not have bleeding issues; no blood in urine, stool, or nosebleeds. She denies any decrease in energy level, myalgias, or claudication. She does not have edema, or sudden weight gain. She denies lightheadedness, dizziness, syncopal or near syncopal episodes, and headaches. Intake Vital Signs 01/13/2507:38 04/17/2512:18 04/17/2512:20 Height 5 ft 2 in Blood Pressure Location Rt brachial Pulse 89 Pulse Source Palpation Intake Visit Reasons: 1 Y FU Allergies Penicillins (PCN) Allergy (Verified 03/13/25 10:47) Rash Have you fallen in the past year?: No PFSH Medical History Atrial fibrillation with rapid ventricular response (08/11/17) Anxiety MDD (major depressive disorder) Osteopenia Gallstones Emotional problems Cancer Arthritis Atrial flutter with rapid ventricular response (08/06/21) Essential hypertension Skin lesion of breast Erythematous bladder mucosa Skin lesion of face History of skin cancer Near syncope Acute pyelonephritis Long-term use of high-risk medication Postoperative atrial fibrillation (08/11/17) HLD (hyperlipidemia) Surgical History History of right breast biopsy history removal bladder tumors History of laparoscopic cholecystectomy Family History Mother Atrial fibrillation Diabetes Heart disease Parkinson diseaseFather Atrial fibrillation CVA (cerebral vascular accident) Diabetes Heart disease Cancer lung cancer with mets to spineBrother CVA (cerebral vascular accident) Cancer bladder cancerBrother Cancer lung cancer Social History Smoking Status: Never smoker alcohol intake: never substance use type: does not use what type of physical activity do you participate in: walking and other details: silver sneakers ROS Const Const: Negative for fatigue, weakness, headache(s) or frequent falls Eyes Eyes: Negative for blurry vision ENT ENT: Negative for headache(s), dizziness, Nosebleed/epistaxis or balance problems Cardio Chest Pain: No Palpitations: No Edema: None Muscle aches with walking: None Resp Respiratory: Negative for SOB with activity, SOB at rest or SOB orthopnea\SOB lying down Additional Details: only feels SOB during a-fib episodes GI GI: Negative nausea, vomiting, heartburn, bright, red blood in stools or black,tarry stools : Negative for hematuria Musc Musc: Negative for balance problems Neuro Neuro: Negative for dizziness, lightheadedness, near syncope, syncope, frequent falls, headache(s), weakness or blurry vision Endo Endo: Negative for fatigue Cardiology Exam Const Appearance: cooperative and no acute distress Nutritional Appearance: average body habitus and obese Orientation: alert and oriented x3 Head Head: normal to inspection Ears: hearing grossly normal bilaterally Nose: external nose normal Face and Sinus: face symmetric Eyes General: appearance normal, both eyes and all related structures Eyelids: eyelids normal Conjunctivae: conjunctivae normal Pupils: PERRL and pupil size EOM: EOM intact bilaterally Neck Neck: normal visual inspection Carotids: Negative bruit Chest Chest inspection: normal inspection of the chest and normal respiratory effort Auscultation: Bilateral: Clear to Auscultation Cardio Palpation: normal PMI Rhythm: irregularly irregular Heart sounds: S1 normal and S2 normal; Negative rub, gallop or murmur GI GI: normal to inspection, soft and obese Neuro General: patient alert, patient oriented x3 and CN's II-XI intact bilaterally Skin Skin: no rashes or lesions noted Extremities Pulses: Normal: Right Posterior Tibial Pulse, Left Posterior Tibial Pulse, Right Radial Pulse and Left Radial Pulse Lower Extremity Edema: None: Bilateral Psych Psychological: normal affect Supplemental Info Supplemental Information Labs: No Data to Display Diagnostics: Electrocardiogram Chest X-Ray Pulmonary: No Data to Display Past Visits: No Data to Display Assessment and Plan Assessment and Plan (1) Atrial flutter with rapid ventricular response: Status: Acute Plan: Patient has a history of atrial flutter. She presents again in atrial flutter and was started on amiodarone with slowing down of her heart rate today. Her most recent echocardiogram from 08/15/2025 demonstrated ejection fraction of 65%, and mildly enlarged left atrium. She is followed with Dr. Vargas?EP. Her EKG from today demonstrates sinus rhythm with a heart rate of 62 bpm. She will continue Eliquis 5 mg twice daily, diltiazem 120 mg twice daily, metoprolol succinate 50 mg twice daily. The plan at that time as she is symptomatic is to perform a DC cardioversion and depending on the findings further recommendations will be made. Risk benefits alternatives have been explained to her she understands and agrees to proceed. (2) Essential hypertension: Status: Chronic Plan: Patient has a history of hypertension. Her blood pressure is well controlled at this time. She will continue with her current medical therapy, along with monitoring her blood pressures at home. She will notify our office of any persistently elevated or low blood pressure readings. (3) HLD (hyperlipidemia): Status: Chronic Plan: Patient has a history of hyperlipidemia. Her PCP monitors this. She will continue with aggressive risk factor and lifestyle modifications. A copy of her most recent lipid panel would be greatly appreciated for continuity of care. Plan Details Additional Comments: Patient would like to keep follow-up appointment with Dr. Gerard in March. Thank you for allowing me to participate in the care of your patient. Please don't hesitate to call if any issues arise. This note was generated using a voice recognition system and there may be incorrect words, spelling, or punctuation that were not noted when reviewing the office note prior to saving. Portions of this documentation were copied and pasted from previous office visit notes to provide a cohesive continuity of the history. The note has been reviewed, edited, and updated, as necessary. Coding Level of Care Code Off vis,est,level 4 Diagnoses Atrial flutter with rapid ventricular response I48.92 Essential hypertension I10 HLD (hyperlipidemia) E78.5 Coding Level of Care Code Off vis,est,level 4 Diagnoses Atrial flutter with rapid ventricular response I48.92 Essential hypertension I10 HLD (hyperlipidemia) E78.5 Clinical Quality Measures Falls Risk Screening/Assistive Devices Have you fallen in the past year?: No
[2025-04-17 10:00] VITALS: BMI 32.3
[2025-04-17 12:11] LABS: Anion Gap 13 (5-15); BUN 15 mg/dL (4-19); BUN/Creat Ratio 24.5 RATIO (10-20); Calcium,Total 9.5 mg/dL (7.6-11.0); Carbon Dioxide 25.7 mmol/L (21.0-32.0); Chloride 98 mmol/L (98-108); Estimated Creatinine Clearance 56.89 ml/min (50-250); Glucose 103 mg/dL (70-99); Potassium 4.6 mmol/L (3.3-5.1)
--- NOTE | 2025-04-17 12:38 | PCM.OP.PRO2 ---
Non-invasive Procedural Procedure Information Date of Procedure: 04/17/25 Pre-Procedure Diagnosis: Atrial flutter Post-Procedure Diagnosis: Atrial flutter Procedure Performed:: DC cardioversion Procedure Time Out: 12:30 Procedure Start Time: 12:35 Procedure Stop Time: 12:36 Special Medications: Intravenous propofol 40 mg Description of procedure: Patient was brought to cardiac catheterization lab in the postabsorptive nonsedated state. Informed consent was obtained. The patient was seen by Dr. Christine of the critical care division. Anterior posterior pads were applied. 40 mg of intravenous propofol was then administered and 200 J of DC cardioversion energy were applied with prompt reversal to sinus rhythm. Patient tolerated the procedure well. Procedure findings: Successful DC cardioversion from atrial fibrillation to sinus rhythm. Continue as per office protocol Amiodarone 200 mg twice a day till May 12 then 200 mg daily Complications Complications: No
--- NOTE | 2025-04-17 13:06 | PCM.OP.PRO2 ---
Procedures Pulmonary Pulmonary Procedures /Diagnostic Testin Con Sedation Non-invasive Procedural Procedure Information Date of Procedure: 04/17/25 Description of procedure: CONSCIOUS SEDATION REPORT DATE OF SERVICE: April 17, 2025 BRIEF HISTORY OF PRESENT ILLNESS: The patient is a 79-year-old female who presented to [facility] to undergo an elective outpatient cardioversion due to underlying atrial fibrillation. The patient denied any prior anesthetic complications. Her last surface echocardiogram demonstrated an ejection fraction of 65%. She is systemically anticoagulated on Eliquis. She denies a history of COPD, asthma or obstructive sleep apnea. PHYSICAL EXAMINATION: VITAL SIGNS: Reviewed and were acceptable. GENERAL: The patient is a female, in no apparent distress, speaking in full sentences. HEENT: Normocephalic, atraumatic. Mucous membranes are moist and pink. Good mouth opening noted. Trachea is midline. CHEST: S1, S2 irregularly irregular. No murmurs, rubs or gallops were noted. LUNGS: Clear to auscultation bilaterally without appreciable wheezes, rales or rhonchi. ABDOMEN: Soft, nontender, nondistended. Positive bowel sounds. EXTREMITIES: There is no clubbing, cyanosis or edema. ASA Class: II DESCRIPTION OF PROCEDURE: After confirmation of informed consent, the patient's anesthesia plan was reviewed in detail. Propofol was chosen. Risks and benefits were reviewed and the patient agreed to proceed. At 1226, the patient was given 40 mg of propofol. The patient achieved an appropriate level of sedation and was given a 200 joule synchronized cardioversion by Dr. Gerard at the bedside. This was successful in achieving normal sinus rhythm. The patient was monitored until 1241, at which time she reached her baseline mental status and function. The patient tolerated the procedure well. COMPLICATIONS: None ESTIMATED BLOOD LOSS: None RECOMMENDATIONS: Okay to recover in usual fashion.
--- OUTSIDE RECORDS SUMMARY | 2025-04-17 19:42 | XMS RPT_ITS | CCD ---
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 Jaya Childress Primary Care Provider Erich, Dr. Jaya Childress Referring Provider 1([facility])[phone] Jonathan Gerard Attending Provider 1([facility])[phone] Geoffrey DRAFTER STRUCTURAL, DRAFTER STRUCTURAL-C Cabrera Attending Provider Erich, Dr. Jaya Childress Primary Care Provider 1([facility])[phone] Dr. Jonathan Gerard Attending Provider 1([facility])[phone] Erich, Dr. Jaya Childress Referring Provider 1([facility])[phone] Erich, Dr. Jaya Childress Primary Care Provider 1([facility])[phone] Erich, Dr. Jaya Childress Primary Care Provider 1([facility])[phone] Geoffrey ALLEN, TIFFANY-C Cabrera Attending Provider Erich, Dr. Jaya Childress Referring Provider 1([facility])[phone] BONNIE TRINH Primary Care Physician Dr. Jonathan Gerard Attending Provider 1([facility])-[phone] Erich, Dr. Jaya Childress Primary Care Provider Erich, Dr. Jaya Childress Referring Provider Erich, Dr. Jaya Childress Primary Care Provider Erich, Dr. Jaya Childress Referring Provider 1([facility])[phone] Geoffrey DRAFTER STRUCTURAL, TIFFANY-C Cabrera Attending Provider RAFAEL Richmond Attending Provider Erich, Dr. Jaya Childress Primary Care Provider 1([facility])[phone] Erich, Dr. Jaya Childress Referring Provider 1([facility])[phone] Geoffrey DRAFTER STRUCTURAL, DRAFTER STRUCTURALMatthieu Austin Attending Provider RAFAEL Richmond Attending Provider Geoffrey DRAFTER STRUCTURAL, DRAFTER STRUCTURAL-C Cabrera Referring Provider Geoffrey DRAFTER STRUCTURAL, DRAFTER STRUCTURAL-C Cabrera Other Provider [phone] Dr. Jens Christine Attending Provider [phone] Darin DRAFTER STRUCTURAL, DRAFTER STRUCTURAL-C Jose Chase Attending Provider Erich, Dr. Jaya Childress Primary Care Provider Erich, Dr. Jaya Childress Referring Provider LUIS [...] Primary Care Provider Rosalind Moses PA-C Unavailable Moustapha TRINH, Jonathan S Unavailable ERICH, JAYA CHI Primary Care Unavailable RERE DUNCAN Attending Unavailable ROSALIND MOSES Referring Unacha Hale DRAFTER STRUCTURAL, Cabrera Attending Unavailable Geoffrey ALLEN, Cabrera Referring Unavailable Erich, Jaya Chi Primary Care Unavailable Jens Christine Attending Unavailable Moustapha, Jonathan Referring Unavailable Moustapha, Jonathan Consulting Unavailable Erich, Jaya Chi Primary Care Unavailable Jens Christine Attending Unavailable Erich, Jaya Chi Primary Care Unavailable Moustapha, Denver Referring Unavailable Moustapha, Jonathan Consulting Unavailable Moustapha, Jonathan Referring Unavailable Moustapha, Jonathan Attending Unavailable Erich, Jaya Chi Primary Care Unavailable Erich, Jaya Chi Referring Unavailable Erich, Jaya Chi Primary Care Unavailable Erich, Jaya Chi Attending Unavailable Karl Villar Attending Unavailable Karl Villar Referring Unavailable Erich, Jaya Chi Primary Care Unavailable Nora Solano Attending Unavailable GodmanNora Referring Unavailable Erich, Jaya Chi Primary Care Unavailable Erich, Jaya Chi Referring Unavailable Rosalind Moses Attending Unavailabl e Erich, Jaya Chi Primary Care Unavailable Moe Mccarthy Attending Unavailable Erich, Jaya Chi Primary Care Unavailable Erich, Jaya Chi Referring Unavailable Erich, Jaya Chi Primary Care Unavailable Rosalind Moses Attending Unavailabl e Erich, Jaya Chi Primary Care Unavailable Erich, Jaya Chi Referring Unavailable Rosalind Moses Attending Unavailabl e Geoffrey DRAFTER STRUCTURAL, Cabrera Attending Unavailable Erich, Jaya Chi Primary Care Unavailable Erich, Jaya Chi Referring Unavailable Moe Mccarthy Attending Unavailable Erich, Jaya Chi Primary Care Unavailable Erich, Jaya Chi Primary Care Unavailable Rosalind Moses Attending Unavailabl e Erich, Jaya Chi Referring Unavailable Geoffrey DRAFTER STRUCTURAL, Cabrera Referring Unavailable Geoffrey DRAFTER STRUCTURAL, Cabrera Attending Unavailable Erich, Jaya Chi Primary Care Unavailable Geoffrey DRAFTER STRUCTURAL, Cabrera Attending Unavailable Erich, Jaya Chi Primary Care Unavailable Erich, Jaya Chi Primary Care Unavailable Moustapha, Jonathan Attending Unavailable Moustapha, Denver Referring Unavailable Moustapha, Jonathan Consulting Unavailable Moustapha, Jonathan Referring Unavailable Moustapha, Denver Consulting Unavailable Moustapha, Jonathan Attending Unavailable Erich, Jaya Chi Primary Care Unavailable Erich, Jaya Chi Attending Unavailable Reich, Jaya Chi Primary Care Unavailable Erich, Jaya Chi Primary Care Unavailable Moustapha, Denver Attending Unavailable Moustapha, Denver Referring Unavailable Deon Bearden Attending Unavailable Erich, Jaya Chi Primary Care Unavailable Jose Webster NP Attending Unavailable Erich, Jaya Chi Referring Unavailable Erich, Jaya Chi Primary Care Unavailable Moustapha, Denver Attending Unavailable Erich, Jaya Chi Primary Care Unavailable Geoffrey DRAFTER STRUCTURAL, Cabrera Referring Unavailable Sabra Arias Attending Unavailable Erich, Jaya Chi Primary Care Unavailable Geoffrey ALLEN, Cabrera Attending Unavailable Erich, Jaya Chi Referring Unavailable Erich, Jaya Chi Primary Care Unavailable Moe Mccarthy Attending Unavailable Erich, Jaya Chi Primary Care Unavailable Erich, Jaya Chi Primary Care Unavailable Erich, Jaya Chi Referring Unavailable Erich, Jaya Chi Attending Unavailable Erich, Jaya Chi Primary Care Unavailable Erich, Jaya Chi Attending Unavailable Erich, Jaya Chi Referring Unavailable Erich, Jaya Chi Attending Unavailable Erich, Jaya Chi Primary Care Unavailable Allergies Allergy Classification Reported Allergen(s) Allergy Type Date of Onset Reaction(s) Facility (3 sources) acetaminophen / HYDROcodone; Translations: [HYDROCODONE-ACET AMINOPHEN] Drug Allergy 3 Mental Status Change [facility] Repository (20 sources) codeine; Translations: [CODEINE] Drug Allergy 3 Mental Status Change [facility] Repository (17 sources) Penicillins; Translations: [PENICILLINS] Propensity to adverse reactions to drug (disorder) 3 Hives [facility] Repository (3 sources) Penicillin; Translations: [penicillin] Drug Allergy [facility] (3 sources) penicillin G benzathine / penicillin G procaine; Translations: [benzathine penicillin-procai ne penicillin] Drug Allergy Unknown -[facility] (1 source) oxyCODONE Drug Allergy 5 [facility] Repository Medications Current Medications Medication Drug Class(es) Dates [...] daily Hydrochlorothiazide Active 25 MG PO DAILY 90 May 13, 2022 12:00am hydroCHLOROthiazide 12.5 mg [...] Active Start: 09-19-2024 take 1 capsule by mo azh once daily venlafaxine ER (EFFEXOR XR) 75 [...] 04August 30, 2019 September 14, 2019 1:10am [id number] 200 actuat albuterol 0.09 mg/actuat metered dose [...] 08-08-2017 End: 10-24-2019 Ergocalciferol (Vitamin D2) Discontinued 32135 UNITS PO VASQUEZ August 08, 2017 1:00am [...] MG PO 3 TIMES DAILY NEEDED 30 August 30, 2019 1:00am September 14, 2019 1:10am sulfamethoxazole 800 mg / trimethoprim 160 mg oral tablet (13 sources) Dihydrofolate Reductase Inhibitor Antibacterial, Sulfonamide Antimicrobial Start: 08-30-2019 End: 09-14-2019 take 1 tablet by mouth twice daily Sulfamethoxazole-Tr imethoprim Discontinued 1 TABLET PO TWICE A DAY 6 August 30, 2019 1:00am September 14, 2019 1:09am trimethoprim 100 mg oral tablet (5 sources) Dihydrofolate Reductase Inhibitor Antibacterial Start: 04-10-2021 End: 09-05-2023 trimethoprim 100 mg oral tablet Dose : 100 mg = 1 tab(s), Oral, q12h, # 4 tab(s), 0 Refill(s), Pharmacy: [facility], 160, cm, 05/21/22 10:45:00 EDT, Height, 94, [...] sources) Essential hypertension; Translations: [Essential (primary) hypertension] Chronic Malaise and fatigue (5 sources) Fatigue; Translations: [Other fatigue] 11-14-2022 Episodic Mood disorders (1 source) Major depressive disorder, single episode, unspecified; Translations: [Major depressive disorder, single episode, unspecified] Onset: 03-07-20 Chronic Other aftercare (5 sources) Drug therapy finding; Translations: [Other senior care (current) drug therapy] 11-06-2022 Episodic Other aftercare (3 sources) Long-term current use of anticoagulant; Translations: [care home (current) use of anticoagulants] Onset: 12-05-1903-12-2023 Episodic Other aftercare (1 source) 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; Translations: [Anticoagulant long-term [...] Translations: [Shortness of breath] 11-14-2022 Episodic Other non-traumatic joint disorders (8 sources) [...] presenting hazards to health] Onset: 12-05-1912-26-2024 Episodic Septicemia (except in labor) (13 sources) [...] Episodic Other aftercare (5 sources) 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; Translations: [Long-term (current) use of other medications] Onset: 10-20-2024 11-06-2022 Episodic Other lower respiratory disease (1 source) Wheezing; Translations: [Wheezing] Onset: 12-08-2024 Episodic Other lower respiratory disease (1 source) Other forms of dyspnea; Translations: [Other forms of dyspnea] Onset: 09-12-2024 Episodic Other screening for suspected conditions (not mental disorders or infectious disease) (1 source) Patient encounter status; Translations: [Encounter for screening for malignant neoplasm of colon] Onset: 01-27-2013 01-27-2013 Episodic Residual codes; unclassified (1 source) Chills (without fever); Translations: [Chills (without fever)] Onset: 12-15-2024 Episodic Spondylosis; intervertebral disc disorders; other back problems (6 sources) Chronic pain; Translations: [Cervicalgia] Onset: 06-07-2024 11-14-2022 Episodic Unclassified (8 sources) history removal bladder tumors 04-18-2022 Results Test Name Value Interpretation Reference Range Facility Basic Metabolic Profile (BMP )on 04-17-2025 BUN/CRE 24.5 RATIO High 07-17 [facility] Comment on above: Performed By: #### L 500.2500 ####[facility] [address] [place], [address] Calcium [Mass/Vol] 9.5 mg/dL Normal 7.6-11.0 [facility] Comment on above: Performed By: #### L 500.2500 ####[facility] [address] [place], [address] Chloride [Moles/Vol] 98 mmol/L Normal 98-108 [facility] Comment on above: Performed By: #### L 500.2500 ####[facility] [address] [place], [address] CO2 [Moles/Vol] 25.7 mmol/L Normal 21.0-32.0 [facility] Comment on above: Performed By: #### L 500.2500 ####[facility] [address] [place], [address] Creatinine [Mass/Vol] 0.62 mg/dL Low 0.70-1.20 [facility] Comment on above: Performed By: #### L 500.2500 ####[facility] [address] [place], [address] ECRCL 56.89 ml/min Normal 50-250 [facility] Comment on above: Performed By: #### L 500.2500 ####[facility] [address] [place], [address] GAP 13 Normal 5-15 [facility] Comment on above: Performed By: #### L 500.2500 ####[facility] [address] [place], [address] GFR/1.73 sq M.predicted among non-blacks MDRD (S/P/Bld) [Vol rate/Area] 91 mL/min/{1.73_m2} Normal >60 [facility] Comment on above: Result Comment: mL/m in/1.73m2 CKD-EPI Creatinine Equation (2020) Performed By: #### L 500.2500 ####[facility] [address] [place], [address] Glucose [Mass/Vol] 103 mg/dL High 70-99 [facility] Comment on above: Performed By: #### L 500.2500 ####[facility] [address] [place], [address] Potassium [Moles/Vol] 4.6 mmol/L Normal 3.3-5.1 [facility] Comment on above: Result Comment: Hemo lysis present, Results??could be affected. ?? Performed By: #### L 500.2500 ####[facility] [address] [place], [address] Sodium [Moles/Vol] 137 mmol/L Normal 133-145 [facility] Comment on above: Performed By: #### L 500.2500 ####[facility] [address] [place], [address] Urea nitrogen [Mass/Vol] 15 mg/dL Normal 4-19 [facility] Comment on above: Performed By: #### L 500.2500 ####[facility] [address] [place], [address] BUN Normal 4-19 [facility] Comment on above: Result Comment: This specimen has been REJECTED due to Laboratory criteria: Hemolyzed. PAUL has been notified of need of recollection. 04/17/251101 Wyatt R Stoner Performed By: #### L 500.2500 ####[facility] [address] [place], [address] BUN/CRE Normal 10-20 [facility] Comment on above: Result Comment: This specimen has been REJECTED due to Laboratory criteria: Hemolyzed. PAUL has been notified of need of recollection. 04/17/251101 Wyatt R Stoner Performed By: #### L 500.2500 ####[facility] [address] [facility] [address] Calcium Normal 7.6-11.0 [facility] Comment on above: Result Comment: This specimen has been REJECTED due to Laboratory criteria: Hemolyzed. PAUL has been notified of need of recollection. 04/17/251101 Wyatt R Stoner Performed By: #### L 500.2500 ####[facility] [address] [facility] [address] CL Normal 98-108 [facility] Comment on above: Result Comment: This specimen has been REJECTED due to Laboratory criteria: Hemolyzed. PAUL has been notified of need of recollection. 04/17/251101 Wyatt R Stoner Performed By: #### L 500.2500 ####[facility] [address] [facility] [address] CO2 Normal 21.0-32.0 [facility] Comment on above: Result Comment: This specimen has been REJECTED due to Laboratory criteria: Hemolyzed. PAUL has been notified of need of recollection. 04/17/251101 Wyatt R Stoner Performed By: #### L 500.2500 ####[facility] [address] [place], [address] CREAT,SERUM Normal 0.70-1.20 [facility] Comment on above: Result Comment: This specimen has been REJECTED due to Laboratory criteria: Hemolyzed. PAUL has been notified of need of recollection. 04/17/251101 Wyatt R Stoner Performed By: #### L 500.2500 ####[facility] [address] [place], [address] eGFR Normal >60 [facility] Comment on above: Result Comment: This specimen has been REJECTED due to Laboratory criteria: Hemolyzed. PAUL has been notified of need of recollection. 04/17/251101 Wyatt R Stoner Performed By: #### L 500.2500 ####[facility] [address] [place], [address] GAP Normal 5-15 [facility] Comment on above: Result Comment: This specimen has been REJECTED due to Laboratory criteria: Hemolyzed. PAUL has been notified of need of recollection. 04/17/251101 Wyatt R Stoner Performed By: #### L 500.2500 ####[facility] [address] [place], [address] GLU Normal 70-99 [facility] Comment on above: Result Comment: This specimen has been REJECTED due to Laboratory criteria: Hemolyzed. PAUL has been notified of need of recollection. 04/17/251101 Wyatt R Stoner Performed By: #### L 500.2500 ####[facility] [address] [place], [address] Potassium Normal 3.3-5.1 [facility] Comment on above: Result Comment: This specimen has been REJECTED due to Laboratory criteria: Hemolyzed. PAUL has been notified of need of recollection. 04/17/251101 Wyatt R Stoner Performed By: #### L 500.2500 ####[facility] [address] [place], [address] Basic Metabolic Profile (BMP) Normal 133-145 [facility] Comment on above: Result Comment: This specimen has been REJECTED due to Laboratory criteria: Hemolyzed. PAUL has been notified of need of recollection. 04/17/251101 Wyatt R Stoner Performed By: #### L 500.2500 ####[facility] [address] [place], [address] Cardiology Visit Reporton Cardiology Visit Report [facility] [address] [place] [address] OFFICE VISIT Date of Service: 04/05/26 MR#: [id number] Acct: [id number] Name: ITZ VEGAS Rep #: [id number] : 1945 Provider: Dr. Jonathan Gerard MD Age/Sex: 79/F [place] [facility] Status: Signed HPI HPI History of Present Illness Details: ITZ VEGAS, is a 79 F who presents for DC cardioversion. She had walked into the office a few days ago with palpitations and was noted to be in atrial fibrillation with a rapid ventricular response rate. She was started on amiodarone in addition to her regular medications. She does have a history of hypertension, [...] due to the results of her PFT. Patient was seen by Dr. Duncan in [...] she could be considered for catheter ablation. Patient presented to the emergency room on 03/11/2025 with complaints of atrial fibrillation. She was given an IV Cardizem bolus which did bring her heart rate down until she got up to go to the bathroom. She remained in atrial fibrillation RVR, and underwent a successful cardioversion in the emergency room. She presented to the office again with atrial fibrillation and she is being considered for cardioversion. From a cardiac standpoint, the patient is doing well. She denies any palpitations, chest pain, pressure or heaviness. She denies SOB, Orthopnea, and PND. She does not have bleeding issues; no blood in urine, stool, or nosebleeds. She denies any decrease in energy level, myalgias, or claudication. She does not have edema, or sudden weight gain. She denies lightheadedness, dizziness, syncopal or near syncopal episodes, and headaches. Intake Vital Signs 01/13/25 07:38 04/17/25 12:18 04/17/25 12:20 Height 5 ft 2 in Blood Pressure Location Rt brachial Pulse 89 Pulse Source Palpation Intake Visit Reasons: 1 Y FU Allergies Penicillins (PCN) Allergy (Verified 03/13/25 10:47) Rash Have you fallen in the past year?: No PFSH Medical History Atrial fibrillation with rapid [...] walking and other details: silver sneakers ROS Const Const: Negative for fatigue, weakness, headache(s) or frequent falls Eyes Eyes: Negative for blurry vision ENT ENT: Negati (more content not included)... Normal [facility] Procedure Reporton Procedure Report [facility] Medical Records Department [address] [place] [address] Procedure Report 04/17/25 1306 MR#: [id number] Acct: [id number] Name: ITZ VEGAS Rep #: [id number] : 1945 79 From: Jens Christine DO PCP: Dr. Jaya Jung MD [place] [place] [facility] Procedures Pulmonary Pulmonary Procedures /Diagnostic Testin Con Sedation Non-invasive Procedural Procedure Information Date of Procedure: 04/17/25 Description of procedure: CONSCIOUS SEDATION REPORT DATE OF SERVICE: April 17, 2025 BRIEF HISTORY OF PRESENT ILLNESS: The patient is a 79-year-old female who presented to [facility] to undergo an elective outpatient cardioversion due to underlying atrial fibrillation. The patient denied any prior anesthetic complications. Her last surface echocardiogram demonstrated an ejection fraction of 65%. She is systemically anticoagulated on Eliquis. She denies a history of COPD, asthma or obstructive sleep apnea. PHYSICAL EXAMINATION: VITAL SIGNS: Reviewed and were acceptable. GENERAL: The patient is a female, in no apparent distress, speaking in full sentences. HEENT: Normocephalic, atraumatic. Mucous membranes are moist and pink. Good mouth opening noted. Trachea is midline. CHEST: S1, S2 irregularly irregular. No murmurs, [...] and the patient agreed to proceed. At 1226, the patient was given 40 mg of propofol. The patient achieved an appropriate level of sedation and was given a 200 joule synchronized cardioversion by Dr. Gerard at the bedside. This was successful in achieving normal sinus rhythm. The patient was monitored until 1241, at which time she reached her baseline mental status and function. The patient tolerated the procedure well. COMPLICATIONS: None ESTIMATED BLOOD LOSS: None RECOMMENDATIONS: Okay to recover in usual fashion. 04/17/25 1307 Cosigner Signature (if applicable): CC: Dr. Jonathan Gerard MD; Dr. Jens Christine DO; Dr. Jaya Jung MD Signed Normal [facility] Procedure Report [facility] Medical Records Department [address] [place] [address] Procedure Report 04/17/25 1238 MR#: [id number] Acct: [id number] Name: ITZ VEGAS Rep #: [id number] : 1945 79 From: Jonathan Gerard MD PCP: Dr. Jaya Jung MD [place] [place] [facility] Non-invasive Procedural Procedure Information Date of Procedure: 04/17/25 Pre-Procedure Diagnosis: Atrial flutter Post-Procedure Diagnosis: Atrial flutter Procedure Performed:: DC cardioversion Procedure Time Out: 12:30 Procedure Start Time: 12:35 Procedure Stop Time: 12:36 Special Medications: Intravenous propofol 40 mg Description of procedure: Patient was brought to cardiac catheterization lab in the postabsorptive nonsedated state. Informed consent was obtained. The patient was seen by Dr. Christine of the critical care division. Anterior posterior pads were applied. 40 mg of intravenous propofol was then administered and 200 J of DC cardioversion energy were applied with prompt reversal to sinus rhythm. Patient tolerated the procedure well. Procedure findings: Successful DC cardioversion from atrial fibrillation to sinus rhythm. Continue as per office protocol Amiodarone 200 mg twice a day till May 12 then 200 mg daily Complications Complications: No 04/17/25 1240 Cosigner Signature (if applicable): CC: Dr. Jonathan Gerard MD; Dr. Jaya Jung MD Signed Normal [facility] Cardiology Visit Reporton Cardiology Visit Report [facility] [address] [place] [address] OFFICE VISIT Date of Service: 03/13/25 MR#: [id number] Acct: [id number] Name: ITZ VEGAS Rep #: [id number] : 1945 Provider: PRABHJOT escudero Age/Sex: 79/F [place] [facility] Status: Signed HPI HPI History of Present [...] rate is controlled. She is living at [facility]. Patient was seen by Dr. Duncan in [...] she could be considered for catheter ablation. Patient presented to the emergency room on 03/11/2025 with complaints of atrial fibrillation. She was given an IV Cardizem bolus which did bring her heart rate down until she got up to go to the bathroom. She remained in atrial fibrillation RVR, and underwent a successful cardioversion in the emergency room. From a cardiac standpoint, the patient is doing well. She denies any palpitations, chest pain, pressure or heaviness. She denies SOB, Orthopnea, and PND. She does not have bleeding issues; no blood in urine, stool, or nosebleeds. She denies any decrease in energy level, myalgias, or claudication. She does not have edema, or sudden weight gain. She denies lightheadedness, dizziness, syncopal or near syncopal episodes, and headaches. 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 Accompanied by: Self Is patient in pain?: No Allergies Penicillins (PCN) Allergy (Verified 03/13/25 10:47) Rash oxycodone Adverse Reaction (Mild, Verified 03/13/25 10:47) Other Medications ???Medication ???Instructions ???Recorded ???Confirmed ???Type losartan 100 mg tablet 100 mg PO DAILY 09/12/21 03/13/25 History apixaban 5 mg tablet 5 mg PO BID 09/13/21 03/13/25 Hist ory potassium chloride 20 mEq 20 meq PO BID 05/13/22 03/13/25 Hi story tablet,extended release(part/cryst) hydrochlorothiazide 25 mg tablet 25 mg PO DAILY #90 tabs 05/14/23 0 03/13/25 Rx gabapentin 100 mg capsule 100 mg PO BID 08/02/24 03/13/25 Hi story mirtazapine 7.5 mg tablet 7.5 mg PO QHS #90 tabs 09/14/24 Rx venlafaxine 150 mg 150 mg PO DAILY 90 days #90 caps 0 03/01/25 03/13/25 Rx capsule,extended release 24 hr venlafaxine 75 mg capsule,extended 75 mg PO DAILY #90 caps 03/01/25 03/13/25 Rx release 24 hr diltiazem HCl 120 mg 120 mg PO BID #180 caps 03/10/25 0 03/13/25 Rx capsule,extended release 24 hr, controlled acetaminophen 500 mg tablet 500 mg PO Q6H PRN fever or pain 03/13/25 History albuterol sulfate 90 mcg/actuation 2 puff inhalation Q4H PRN 03/13/25 History aerosol inhaler shortness of breath or wheezing baclofen 10 mg tablet 10 mg PO QHS 03/11/25 03/13/25 His tory metoprolol succinate 50 mg 50 mg PO BID 03/11/25 03/13/25 His tory tablet,extended release 24 hr Ejection fraction %: 65 Have you fallen in the past year?: Yes (one-tripped) [facility] Medical History Atrial fibrillati (more content not included)... Normal [facility] 12 Lead EKGon 03-11-2025 12 Lead EKG [facility] Cardiovascular Services [address] [place] [address] 12 Lead EKG 03/11/25 1054 MR#: [id number] Acct: [id number] Name: ITZ VEGAS Rep #: [id number] : 1945 79 From: Jonathan Gerard MD Attending Dr: Status: DEP ER Ordering Dr: Deon Bearden MD Date: 03/11/25 Location: ED Sex: F C Admitted: Test Reason : Blood Pressure : */* mmHG Vent. Rate : 139 BPM Atrial Rate : 139 BPM P-R Int : 188 ms QRS Dur : 80 ms QT Int : 308 ms P-R-T Axes : 47 -9 141 degrees QTcB Int : 468 ms Critical Test Result: STEMI ATRIAL FIB:FLUTTER WITH 2:1 Consider right ventricular involvement in acute inferior infarct Abnormal ECG When compared with ECG of 30-Oct-2024 22:13, Significant changes have occurred Confirmed by JONATHAN GERARD MD ([id number]), digital editor AURELIO TUCKER ([id number]) on 03/15/2025 7:27:51 AM Referred By: Confirmed By: JONATHAN GERARD MD 03/15/2527 Date Jonathan Gerard MD CC: Dr. Deon Bearden MD; Dr. Jaya Jung MD Signed [facility] 12 Lead EKG [facility] Cardiovascular Services [address] [place] [address] 12 Lead EKG 03/11/25 1437 MR#: [id number] Acct: [id number] Name: ITZ VEGAS Rep #: [id number] : 1945 79 From: Jonathan Gerard MD Attending Dr: Status: DEP ER Ordering Dr: Deon Bearden MD Date: 03/11/25 Location: ED Sex: F C Admitted: Test Reason : POST CARDIOVERSION Blood Pressure : */* mmHG Vent. Rate : 87 BPM Atrial Rate : 87 BPM P-R Int : 180 ms QRS Dur : 80 ms QT Int : 368 ms P-R-T Axes : 69 -5 116 degrees QTcB Int : 442 ms Normal sinus rhythm Cannot rule out Inferior infarct , age undetermined ST T wave abnormality, consider anterolateral ischemia Abnormal ECG Confirmed by JONATHAN GERARD MD ([id number]), digital editor UMU HARRIS ([id number]) on 03/14/2025 7:48:54 AM Referred By: Confirmed By: JONATHAN GERARD MD 03/14/25 0748 Date Jonathan Gerard MD CC: Dr. Deon Bearden MD; Dr. Jaya Jung MD Signed [facility] Basic Metabolic Profile (BMP )on 03-11-2025 BUN/CRE 19.5 RATIO Normal 10-20 [facility] Comment on above: Performed By: #### L 501.4020, L100.0100, L501.5200, L300.8000, L501.3620, L500.4050, L3600.5100, L501.9520 #### [facility] [address] [place], [address] Calcium [Mass/Vol] 9.9 mg/dL Normal 7.6-11.0 [facility] Comment on above: Performed By: #### L 501.4020, L100.0100, L501.5200, L300.8000, L501.3620, L500.4050, L3600.5100, L501.9520 #### [facility] [address] [place], [address] Chloride [Moles/Vol] 102 mmol/L Normal 98-108 [facility] Comment on above: Performed By: #### L 501.4020, L100.0100, L501.5200, L300.8000, L501.3620, L500.4050, L3600.5100, L501.9520 #### [facility] [address] [place], [address] CO2 [Moles/Vol] 23.4 mmol/L Normal 21.0-32.0 [facility] Comment on above: Performed By: #### L 501.4020, L100.0100, L501.5200, L300.8000, L501.3620, L500.4050, L3600.5100, L501.9520 #### [facility] [address] [place], [address] Creatinine [Mass/Vol] 0.67 mg/dL Low 0.70-1.20 [facility] Comment on above: Performed By: #### L 501.4020, L100.0100, L501.5200, L300.8000, L501.3620, L500.4050, L3600.5100, L501.9520 #### [facility] [address] [place], [address] ECRCL 56.89 ml/min Normal 50-250 [facility] Comment on above: Performed By: #### L 501.4020, L100.0100, L501.5200, L300.8000, L501.3620, L500.4050, L3600.5100, L501.9520 #### [facility] [address] [place], [address] GAP 14 Normal 5-15 [facility] Comment on above: Performed By: #### L 501.4020, L100.0100, L501.5200, L300.8000, L501.3620, L500.4050, L3600.5100, L501.9520 #### [facility] [address] [place], [address] GFR/1.73 sq M.predicted among non-blacks MDRD (S/P/Bld) [Vol rate/Area] 90 mL/min/{1.73_m2} Normal >60 [facility] Comment on above: Result Comment: mL/m in/1.73m2 CKD-EPI Creatinine Equation (2020) Performed By: #### L 501.4020, L100.0100, L501.5200, L300.8000, L501.3620, L500.4050, L3600.5100, L501.9520 #### [facility] [address] [place], [address] Glucose [Mass/Vol] 132 mg/dL High 70-99 [facility] Comment on above: Performed By: #### L 501.4020, L100.0100, L501.5200, L300.8000, L501.3620, L500.4050, L3600.5100, L501.9520 #### [facility] [address] [place], [address] Potassium [Moles/Vol] 4.3 mmol/L Normal 3.3-5.1 [facility] Comment on above: Performed By: #### L 501.4020, L100.0100, L501.5200, L300.8000, L501.3620, L500.4050, L3600.5100, L501.9520 #### [facility] [address] [place], [address] Sodium [Moles/Vol] 140 mmol/L Normal 133-145 [facility] Comment on above: Performed By: #### L 501.4020, L100.0100, L501.5200, L300.8000, L501.3620, L500.4050, L3600.5100, L501.9520 #### [facility] [address] [place], [address] Urea nitrogen [Mass/Vol] 13 mg/dL Normal 4-19 [facility] Comment on above: Performed By: #### L 501.4020, L100.0100, L501.5200, L300.8000, L501.3620, L500.4050, L3600.5100, L501.9520 #### [facility] [address] [place], [address] CBC W/Diff, Automatedon 06- Absolute Lymph 2.60 X10 3/uL Normal 0.83-4.51 [facility] Comment on above: Performed By: #### L 501.4020, L100.0100, L501.5200, L300.8000, L501.3620, L500.4050, L3600.5100, L501.9520 #### [facility] [address] [place], [address] Absolute Neut 10.4 X10 3/uL High 2.0-7.7 [facility] Comment on above: Performed By: #### L 501.4020, L100.0100, L501.5200, L300.8000, L501.3620, L500.4050, L3600.5100, L501.9520 #### [facility] [address] [place], [address] Basophils/100 WBC (Bld) 0.6 % Normal 0-1 [facility] Comment on above: Performed By: #### L 501.4020, L100.0100, L501.5200, L300.8000, L501.3620, L500.4050, L3600.5100, L501.9520 #### [facility] [address] [place], [address] Eosinophils/100 WBC (Bld) 0.6 % Normal 0-5 [facility] Comment on above: Performed By: #### L 501.4020, L100.0100, L501.5200, L300.8000, L501.3620, L500.4050, L3600.5100, L501.9520 #### [facility] [address] [place], [address] Erythrocyte distribution width (RBC) [Ratio] 12.4 % Normal 11.6-14.6 [facility] Comment on above: Performed By: #### L 501.4020, L100.0100, L501.5200, L300.8000, L501.3620, L500.4050, L3600.5100, L501.9520 #### [facility] [address] [place], [address] Hematocrit (Bld) [Volume fraction] 43.7 % Normal 37-47 [facility] Comment on above: Performed By: #### L 501.4020, L100.0100, L501.5200, L300.8000, L501.3620, L500.4050, L3600.5100, L501.9520 #### [facility] [address] [place], [address] Hemoglobin (Bld) [Mass/Vol] 14.4 g/dL Normal 12.0-15.0 [facility] Comment on above: Performed By: #### L 501.4020, L100.0100, L501.5200, L300.8000, L501.3620, L500.4050, L3600.5100, L501.9520 #### [facility] [address] [place], [address] IG% 0.400 Normal 0.0-0.9 [facility] Comment on above: Result Comment: IG% - Immature Granulocytes (promyelocytes, myelocytes and metamyelocytes) > 1% indicates that a LEFT SHIFT is Present. Performed By: #### L 501.4020, L100.0100, L501.5200, L300.8000, L501.3620, L500.4050, L3600.5100, L501.9520 #### [facility] [address] [place], [address] Lymphocytes/100 WBC (Bld) 18.3 % Low 19-41 [facility] Comment on above: Performed By: #### L 501.4020, L100.0100, L501.5200, L300.8000, L501.3620, L500.4050, L3600.5100, L501.9520 #### [facility] [address] [place], [address] MCH (RBC) [Entitic mass] 31.7 pg Normal 27.0-32.0 [facility] Comment on above: Performed By: #### L 501.4020, L100.0100, L501.5200, L300.8000, L501.3620, L500.4050, L3600.5100, L501.9520 #### [facility] [address] [place], [address] MCHC (RBC) [Mass/Vol] 33.0 g/dL Normal 32-36 [facility] Comment on above: Performed By: #### L 501.4020, L100.0100, L501.5200, L300.8000, L501.3620, L500.4050, L3600.5100, L501.9520 #### [facility] [address] [place], [address] MCV (RBC) [Entitic vol] 96.3 fL Normal 81-99 [facility] Comment on above: Performed By: #### L 501.4020, L100.0100, L501.5200, L300.8000, L501.3620, L500.4050, L3600.5100, L501.9520 #### [facility] [address] [place], [address] Monocytes/100 WBC (Bld) 7.4 % Normal 0-10 [facility] Comment on above: Performed By: #### L 501.4020, L100.0100, L501.5200, L300.8000, L501.3620, L500.4050, L3600.5100, L501.9520 #### [facility] [address] [place], [address] Neutrophils/100 WBC (Bld) 72.7 % High 47-70 [facility] Comment on above: Performed By: #### L 501.4020, L100.0100, L501.5200, L300.8000, L501.3620, L500.4050, L3600.5100, L501.9520 #### [facility] [address] [place], [address] Nucleated RBC (Bld) [#/Vol] 0 10*3/uL Normal 0-5 [facility] Comment on above: Performed By: #### L 501.4020, L100.0100, L501.5200, L300.8000, L501.3620, L500.4050, L3600.5100, L501.9520 #### [facility] [address] [place], [address] Platelet mean volume (Bld) [Entitic vol] 11.0 fL Normal 6.2-12.0 [facility] Comment on above: Performed By: #### L 501.4020, L100.0100, L501.5200, L300.8000, L501.3620, L500.4050, L3600.5100, L501.9520 #### [facility] [address] [place], [address] Platelets (Bld) [#/Vol] 341 10*3/uL Normal 150-450 [facility] Comment on above: Performed By: #### L 501.4020, L100.0100, L501.5200, L300.8000, L501.3620, L500.4050, L3600.5100, L501.9520 #### [facility] [address] [place], [address] RBC (Bld) [#/Vol] 4.54 10*6/uL Normal 4.2-5.4 [facility] Comment on above: Performed By: #### L 501.4020, L100.0100, L501.5200, L300.8000, L501.3620, L500.4050, L3600.5100, L501.9520 #### [facility] [address] [place], [address] RDW SD 43.8 fl Normal 35.1-43.9 [facility] Comment on above: Performed By: #### L 501.4020, L100.0100, L501.5200, L300.8000, L501.3620, L500.4050, L3600.5100, L501.9520 #### [facility] [address] [place], [address] WBC (Bld) [#/Vol] 14.2 10*3/uL High 4.4-11.0 [facility] Comment on above: Performed By: #### L 501.4020, L100.0100, L501.5200, L300.8000, L501.3620, L500.4050, L3600.5100, L501.9520 #### [facility] [address] [place], [address] Chest 1 View (Portable)on Chest 1 View (Portable) [facility] Imaging Services [address] [place] [address] Chest 1 View (Portable) MR#: [id number] Acct: [id number] Name: ITZ VEGAS Rep #: [id number] : 1945 F 79 From: Mariana Hickman PCP: Dr. Jaya Jung MD Status: [facility] ER Study: Chest 1 View (Portable) Date of Exam: 03/11/25 Exam# [id number] Ordering Dr: Deon Bearden MD PROCEDURE: CHEST 1 VIEW (PORTABLE) 03/11/2025 REASON FOR EXAM: CHEST PAIN TECHNIQUE: Frontal view of the chest. COMPARISON: 11/24/2024 FINDINGS: No focal consolidations. No pleural effusion or pneumothorax. Mild pulmonary vascular congestion. Bibasilar subsegmental atelectasis. Stable mild cardiomegaly. Chronic right posterior rib fracture at T5. RAD/Chest 1 View (Portable) IMPRESSION: Mild pulmonary vascular congestion. Stable mild cardiomegaly. No focal consolidations. Reading Location: [facility] CC: Dr. Deon Bearden MD; Dr. Jaya Jung MD Management Trainee: Signed Normal [facility] Emergency Department Summary on 03-11-2025 Emergency Department Summary [facility] Medical Records Department [address] [place] [address] Emergency Department Summary 03/11/25 MR#: [id number] Acct: [id number] Name: ITZ VEGAS Rep #: [id number] : 1945 79 From: Deon Bearden MD PCP: Dr. Jaya Jung MD Status:DEP ER Location: ED HPI History of Present Illness Chief Complaint: Palpitations Detail of Chief Complaint: A-fib RVR with a history of A-fib. Informant: patient and spouse/S.O. Onset/Context/Timing Onset: Days (Started on .) Activity at onset: gradual Timing: Continuous Narrative Narrative: 79-year-old female diagnosed last April with A-fib. Has been on Eliquis and Cardizem. She has had 2 episodes of A-fib RVR both eventually were cardioverted. She is also seen in [facility] supervisor wrapping room and they discussed cardioversion but did not think she was to that point yet. States on this week started having A-fib RVR again. Rates been fast. No chest pain. Decided come in the emergency department. She states she has been taking her Cardizem and Eliquis as prescribed. Prior Similar Symptoms: Yes Recent Illness/Hospitalization: No PE Risk Factors: Negative for Recent Travel/Surgery, Recent Immobilization, Prior DVT or PE, Cancer or OCP + Smoking + >/=35 TAD Risk Factors: Negative for Marfan's Syndrome [facility] Medical History Atrial fibrillation with rapid ventricular [...] mg tablet 100 mg PO DAILY 09/12/21 03/10/25 History apixaban 5 mg tablet 5 mg PO BID 09/13/21 03/11/25 Hist ory potassium chloride 20 mEq 20 meq PO BID 05/13/22 03/11/25 Hi story tablet,extended release(part/cryst) hydrochlorothiazide 25 mg tablet 25 mg PO DAILY #90 tabs 05/14/23 0 03/10/25 Rx gabapentin 100 mg capsule 100 mg PO BID 08/02/24 03/11/25 Hi story mirtazapine 7.5 mg tablet 7.5 mg PO QHS #90 tabs 09/14/24 Rx venlafaxine 150 mg 150 mg PO DAILY 90 days #90 caps 0 03/01/25 03/11/25 Rx capsule,extended release 24 hr venlafaxine 75 mg capsule,extended 75 mg PO DAILY #90 caps 03/01/25 03/11/25 Rx release 24 hr diltiazem HCl 120 mg 120 mg PO BID #180 caps 03/10/25 0 03/11/25 Rx capsule,extended release 24 hr, controlled acetaminophen 500 mg tablet 500 mg PO Q6H PRN fever or pain 03/10/25 History albuterol sulfate 90 mcg/actuation 2 puff inhalation Q4H PRN Unknown History aerosol inhaler shortness of breath or wheezing baclofen 10 mg tablet 10 mg PO QHS 03/11/25 03/10/25 His tory metoprolol succinate 50 mg 50 mg PO BID 03/11/25 03/11/25 His tory tablet,extended release 24 hr Allergy/AdvReac Type Severity Reaction Status Date / Time Penicillins (PCN) Allergy Rash Verified 03/11/25 10:50 Family History Mother Atrial fibrillation Diabetes Heart [...] other details: silver sneakers ROS ROS ED ROS Narrative Rapid heart rate. No chest pain. Constitutional Constitutional ED: Denies chills or fever(s) Eyes Eyes: Reports none ENT ENT ED: Denies ear pain Cardiovascular Cardiovascular: Reports as per HPI, palpitations and racing heartbeat; Denies chest pain Respiratory/Chest Respiratory/Chest: Denies cough Gastrointestinal Gastrointestinal: Denies abdominal pain Genitourinary Genitourinary ED: Denies dysuria Musculoskeletal Musculoskeletal: Denies arthralgias Integumentary Denies abscess Neurologic Neurologic: Denies headache(s) Psychiatric Psychiatric: Denies anxiety Endocrine Endocrinology: Denies cold intoler (more content not included)... Normal [facility] L499.0042on 03-11-2025 Trop T High Sen 21 ng/L High <=14 [facility] Comment on above: Performed By: #### L 499.0042 ####[facility] [address] [place], [place], [address] L501.4021on 03-11-2025 Trop T High Sen 18 ng/L High <=14 [facility] Comment on above: Performed By: #### L 501.4020, L100.0100, L501.5200, L300.8000, L501.3620, L500.4050, L3600.5100, L501.9520 #### [facility] [address] [place], [place], [address] MR/BMS.BPon 03-01-2025 MR/BMS.BP [address], [address] [place], [place] [address] OFFICE VISIT Date of Service: 03/01/25 MR#: [id number] Acct: [id number] Name: ASCENCIONITZ L Rep #: [id number] : 1945 Provider: Dr. Moe Dexter se, DO Age/Sex: 79/F [place] [facility] Status: Signed Intake Vital Signs 09/14/24 14:36 [...] great. Still very much enjoying living at [place] in the assisted living facility. 's health remains somewhat stable. She visits him every day and feeds him lunch and dinner nearly every day. Regularly gets visits from her daughter and calls from her son. Reports that her health as been doing well. Did have a few runs of AFib and did have a cardioversion. Saw a supervisor wrapping room who feels things are doing well. Sleep [...] Activity/Motor Behavior (more content not included)... Normal [facility] Cardiology Visit Reporton Cardiology Visit Report [facility] [address] [place] [address] OFFICE VISIT Date of Service: 01/13/25 MR#: [id number] Acct: [id number] Name: ITZ VEGAS Rep #: [id number] : 1945 Provider: RAFAEL Her Age/Sex: 79/F Location[place] [facility] Status: Signed HPI HPI History of Present [...] rate is controlled. She is living at [facility]. Patient was seen by Dr. 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 Normal [facility] CBC W/Diff, Automatedon 12-27 Absolute Lymph 2.22 X10 3/uL Normal 0.83-4.51 [facility] Comment on above: Performed By: #### L 100.0100, L501.9520, L506.1001, L500.4050 ####[facility] [address] [place], [address] Absolute Neut 11.2 X10 3/uL High 2.0-7.7 [facility] Comment on above: Performed By: #### L 100.0100, L501.9520, L506.1001, L500.4050 ####[facility] [address] [place], [address] Basophils/100 WBC (Bld) 0.7 % Normal 0-1 [facility] Comment on above: Performed By: #### L 100.0100, L501.9520, L506.1001, L500.4050 ####[facility] [address] [place], [address] Eosinophils/100 WBC (Bld) 0.5 % Normal 0-5 [facility] Comment on above: Performed By: #### L 100.0100, L501.9520, L506.1001, L500.4050 ####[facility] [address] [place], [address] Erythrocyte distribution width (RBC) [Ratio] 13.2 % Normal 11.6-14.6 [facility] Comment on above: Performed By: #### L 100.0100, L501.9520, L506.1001, L500.4050 ####[facility] [address] [place], [address] Hematocrit (Bld) [Volume fraction] 41.0 % Normal 37-47 [facility] Comment on above: Performed By: #### L 100.0100, L501.9520, L506.1001, L500.4050 ####[facility] [address] [place], [address] Hemoglobin (Bld) [Mass/Vol] 13.9 g/dL Normal 12.0-15.0 [facility] Comment on above: Performed By: #### L 100.0100, L501.9520, L506.1001, L500.4050 ####[facility] [address] [place], [address] IG% 0.600 Normal 0.0-0.9 [facility] Comment on above: Result Comment: IG% - Immature Granulocytes (promyelocytes, myelocytes and metamyelocytes) > 1% indicates that a LEFT SHIFT is Present. Performed By: #### L 100.0100, L501.9520, L506.1001, L500.4050 ####[facility] [address] [place], [address] Lymphocytes/100 WBC (Bld) 15.1 % Low 19-41 [facility] Comment on above: Performed By: #### L 100.0100, L501.9520, L506.1001, L500.4050 ####[facility] [address] [place], [address] MCH (RBC) [Entitic mass] 32.6 pg High 27.0-32.0 [facility] Comment on above: Performed By: #### L 100.0100, L501.9520, L506.1001, L500.4050 ####[facility] [address] [place], [address] MCHC (RBC) [Mass/Vol] 33.9 g/dL Normal 32-36 [facility] Comment on above: Performed By: #### L 100.0100, L501.9520, L506.1001, L500.4050 ####[facility] [address] [place], [address] MCV (RBC) [Entitic vol] 96.0 fL Normal 81-99 [facility] Comment on above: Performed By: #### L 100.0100, L501.9520, L506.1001, L500.4050 ####[facility] [address] [place], [address] Monocytes/100 WBC (Bld) 6.5 % Normal 0-10 [facility] Comment on above: Performed By: #### L 100.0100, L501.9520, L506.1001, L500.4050 ####[facility] [address] [place], [address] Neutrophils/100 WBC (Bld) 76.6 % High 47-70 [facility] Comment on above: Performed By: #### L 100.0100, L501.9520, L506.1001, L500.4050 ####[facility] [address] [place], [address] Nucleated RBC (Bld) [#/Vol] 0 10*3/uL Normal 0-5 [facility] Comment on above: Performed By: #### L 100.0100, L501.9520, L506.1001, L500.4050 ####[facility] [address] [place], [address] Platelet mean volume (Bld) [Entitic vol] 10.7 fL Normal 6.2-12.0 [facility] Comment on above: Performed By: #### L 100.0100, L501.9520, L506.1001, L500.4050 ####[facility] [address] [place], [address] Platelets (Bld) [#/Vol] 340 10*3/uL Normal 150-450 [facility] Comment on above: Performed By: #### L 100.0100, L501.9520, L506.1001, L500.4050 ####[facility] [address] [place], [address] RBC (Bld) [#/Vol] 4.27 10*6/uL Normal 4.2-5.4 [facility] Comment on above: Performed By: #### L 100.0100, L501.9520, L506.1001, L500.4050 ####[facility] [address] [place], [address] RDW SD 46.4 fl High 35.1-43.9 [facility] Comment on above: Performed By: #### L 100.0100, L501.9520, L506.1001, L500.4050 ####[facility] [address] [place], [address] WBC (Bld) [#/Vol] 14.7 10*3/uL High 4.4-11.0 [facility] Comment on above: Performed By: #### L 100.0100, L501.9520, L506.1001, L500.4050 ####[facility] [address] [place], [address] [facility] Metabolic [facility] 01-11-2025 Albumin [Mass/Vol] 4.0 g/dL Normal 3.4-4.8 [facility] Comment on above: Performed By: #### L 100.0100, L501.9520, L506.1001, L500.4050 ####[facility] [address] [place], [address] Albumin/Globulin [Mass ratio] 1.4 {ratio} Normal 0.9-2.4 [facility] Comment on above: Performed By: #### L 100.0100, L501.9520, L506.1001, L500.4050 ####[facility] [address] [place], [address] ALK PHOS 82 U/L Normal 35-104 [facility] Comment on above: Performed By: #### L 100.0100, L501.9520, L506.1001, L500.4050 ####[facility] [address] [place], [place], [address] ALT [Catalytic activity/Vol] 18 U/L Normal <=34 [facility] Comment on above: Performed By: #### L 100.0100, L501.9520, L506.1001, L500.4050 ####[facility] [address] [place], [address] AST [Catalytic activity/Vol] 20 U/L Normal <=31 [facility] Comment on above: Performed By: #### L 100.0100, L501.9520, L506.1001, L500.4050 ####[facility] [address] [place], [address] Bilirubin [Mass/Vol] 0.23 mg/dL Normal 0.00-1.30 [facility] Comment on above: Performed By: #### L 100.0100, L501.9520, L506.1001, L500.4050 ####[facility] [address] [place], [address] BUN/CRE 20.8 RATIO High 10-20 [facility] Comment on above: Performed By: #### L 100.0100, L501.9520, L506.1001, L500.4050 ####[facility] [address] [place], [address] Calcium [Mass/Vol] 10.1 mg/dL Normal 7.6-11.0 [facility] Comment on above: Performed By: #### L 100.0100, L501.9520, L506.1001, L500.4050 ####[facility] [address] [place], [address] Chloride [Moles/Vol] 102 mmol/L Normal 98-108 [facility] Comment on above: Performed By: #### L 100.0100, L501.9520, L506.1001, L500.4050 ####[facility] [address] [place], [address] CO2 [Moles/Vol] 26.7 mmol/L Normal 21.0-32.0 [facility] Comment on above: Performed By: #### L 100.0100, L501.9520, L506.1001, L500.4050 ####[facility] [address] [place], [address] Creatinine [Mass/Vol] 0.64 mg/dL Low 0.70-1.20 [facility] Comment on above: Performed By: #### L 100.0100, L501.9520, L506.1001, L500.4050 ####[facility] [address] [place], [address] GAP 13 Normal 5-15 [facility] Comment on above: Performed By: #### L 100.0100, L501.9520, L506.1001, L500.4050 ####[facility] [address] [place], [address] GFR/1.73 sq M.predicted among non-blacks MDRD (S/P/Bld) [Vol rate/Area] 90 mL/min/{1.73_m2} Normal >60 [facility] Comment on above: Result Comment: mL/m in/1.73m2 CKD-EPI Creatinine Equation (2020) Performed By: #### L 100.0100, L501.9520, L506.1001, L500.4050 ####[facility] [address] [place], [address] Globulin (S) [Mass/Vol] 2.8 g/dL Normal 2.2-4.2 [facility] Comment on above: Performed By: #### L 100.0100, L501.9520, L506.1001, L500.4050 ####[facility] [address] [place], [address] Glucose [Mass/Vol] 135 mg/dL High 70-99 [facility] Comment on above: Performed By: #### L 100.0100, L501.9520, L506.1001, L500.4050 ####[facility] [address] [place], [address] Potassium [Moles/Vol] 4.5 mmol/L Normal 3.3-5.1 [facility] Comment on above: Performed By: #### L 100.0100, L501.9520, L506.1001, L500.4050 ####[facility] [address] [place], [address] Sodium [Moles/Vol] 141 mmol/L Normal 133-145 [facility] Comment on above: Performed By: #### L 100.0100, L501.9520, L506.1001, L500.4050 ####[facility] [address] [place], [address] T PROT 6.8 g/dL Normal 5.9-8.4 [facility] Comment on above: Performed By: #### L 100.0100, L501.9520, L506.1001, L500.4050 ####[facility] [address] [place], [address] Urea nitrogen [Mass/Vol] 13 mg/dL Normal 4-19 [facility] Comment on above: Performed By: #### L 100.0100, L501.9520, L506.1001, L500.4050 ####[facility] [address] [place], [address] Thyroid Stim Hormone (TSH)on 01-11-2025 TSH 1.450 uIU/mL Normal 0.300-4.200 [facility] Comment on above: Performed By: #### L 100.0100, L501.9520, L506.1001, L500.4050 ####[facility] [address] [place], [address] Vitamin D,25 Hydroxyon 01-11 Vitamin D 25-OH 33.8 ng/mL Normal 30-100 [facility] Comment on above: Result Comment: Akua min D Status Deficiency: <20 ng/mL (50nmol/L) Insufficiency: 20-30 ng/mL (50-75 nmol/L) Sufficiency: 30-100 ng/mL (75-250 nmol/L) Toxicity: >100 ng/mL (>250 nmol/L) Performed By: #### L 100.0100, L501.9520, L506.1001, L500.4050 ####[facility] [address] [place], [address] CNOVon 12-28-2024 CNOV Office Visit (JEAN-PAUL HALL) ITZ VEGAS ([id number]) 1945 F UPA Date Time Provider Department 12/28/24 10:20 AM RERE DUNCAN AGCARDRAFAEL During your visit today, we recorded the following information about you: Pulse Blood pressure Weight Height 58/minute 152/61 80.3 kg 1.575 m Rere Duncan MD 12/28/2024 9:26 PM Signed PRIMARY CARE PHYSICIAN: Jaya Jung MD [address] [place] [address] REFERRING PHYSICIAN: Rosalind Moses ([facility]) [address] [facility] [address] Patient Care Team: Jaya Jung Chi as PCP - General (Gerontology) Rosalind Moses PA-C as Physician Aircraft Engine Assembler (Cardiology) Jonathan Gerard MD as Specialty Ornamental Brick Installer (Cardiology) CHIEF COMPLAINT: Evaluation of arrhythmia HISTORY OF PRESENT ILLNESS: Ms. Vegas is a 79 year old female who presents today for evaluation of atrial fibrillation, referred by [facility]. The patient is a 79-year-old [...] reduction in stress levels since moving to [facility], where she feels happier and more independent. [...] daily (150 mg + 75 mg), and slwa-ydf-nxeyche vitamin D3 with vitamin K. I have [...] (more content not included)... Normal [facility] ECG B/O W INTERP (MED OFFICE )on 12-28-2024 Sinus bradycardia 58 bpm; first-degree AV block (RI 212 ms); normal QRS duration 78 ms; QTc 418 ms [facility] M100.678on 12-05-2024 M100.678 Pending SARS-CoV-2 (COVID 19) Negative INFLUENZA A Negative INFLUENZA B Negative RSV PCR Negative Normal [facility] Comment on above: Performed By: #### M 100.678 ####[facility] [address] [place], [address] Chest PA and Lateralon 11-24 Chest PA and Lateral [facility] Imaging Services [address] [place], [place] [address] Chest PA and Lateral MR#: [id number] Acct: [id number] Name: ITZ VEGAS Rep #: [id number] : 1945 F 79 From: Rere Goodson PCP: Dr. Jaya Jung MD Status: REG CLI Study: Chest PA and Lateral Date of Exam: 11/24/24 Exam# [id number] Ordering Dr: Jaya Jung MD PROCEDURE: CHEST [...] Location: [facility] CC: Dr. Jaya Jung MD Management Trainee: Signed Normal [facility] M100.678on 11-24-2024 SARS-CoV-2 (COVID-19) Ab IA Ql Normal Reference Range = Negative FLUABV+SARS-CoV-2+RSV Pnl Resp MEHDI+probe GeneXpert Instrument, PCR method Copy of report sent to Infection Control Printer [id number] 11/24/24 1613 PAOLA. SARS-CoV-2 (COVID 19) Negative INFLUENZA A A Positive A INFLUENZA B Negative RSV PCR Negative INFLUENZAE A Normal [facility] Comment on above: Performed By: #### L 501.4020, L100.0100, L501.5200, L300.8000, L501.3620, L500.4050, L3600.5100, L501.9520 #### [facility] [address] [place], [address] 12 Lead EKGon 10-30-2024 12 Lead EKG [facility] Cardiovascular Services [address] [place] [address] 12 Lead EKG 10/30/24 2213 MR#: [id number] Acct: [id number] Name: ITZ VEGAS Rep #: [id number] : 1945 79 From: Jonathan Gerard MD [...] IS UNCONFIRMED Confirmed by JONATHAN GERARD MD ([id number]), digital editor UMU HARRIS ([id number]) on 11/01/2024 8:57:13 AM Referred By: Nora Solano Confirmed By: JONATHAN GERARD MD 11/01/24 0857 Date Jonathan Gerard MD CC: Dr. Nora Solano DO; Dr. Jaya Jung MD Signed Normal [facility] 12 Lead EKG [facility] Cardiovascular Services [address] [place] [address] 12 Lead EKG 10/30/241951 MR#: [id number] Acct: [id number] Name: ITZ VEGAS Rep #: [id number] : 1945 79 From: Jonathan Gerard MD [...] Abnormal ECG Confirmed by JONATHAN GERARD MD ([id number]), digital editor UMU HARRIS ([id number]) on 11/01/2024 9:01:11 AM Also confirmed by JONATHAN GERARD MD ([id number]), digital editor AURELIO TUCKER ([id number]) on 11/02/2024 8:30:24 AM Referred By: Nora Solano Confirmed By: JONATHAN GERARD MD 11/02/24 0830 Date Jonathan Gerard MD CC: Dr. Nora Solano DO; Dr. Jaya Jung MD Signed [facility] Basic Metabolic Profile (BMP )on 10-30-2024 BUN/CRE 31.1 RATIO High 10-20 [facility] Comment on above: Order Comment: 'TROP ' Serial specimen #1, #2 or #3: 1 Performed By: #### L 501.4020, L500.2500, L100.0100 ####[facility] [address] [place], [address] CA,Total 9.6 mg/dL Normal 8.5-10.1 [facility] Comment on above: Order Comment: 'TROP ' Serial specimen #1, #2 or #3: 1 Performed By: #### L 501.4020, L500.2500, L100.0100 ####[facility] [address] [place], [address] Chloride [Moles/Vol] 103 mmol/L Normal 98-107 [facility] Comment on above: Order Comment: 'TROP ' Serial specimen #1, #2 or #3: 1 Performed By: #### L 501.4020, L500.2500, L100.0100 ####[facility] [address] [place], [address] CO2 [Moles/Vol] 24.0 mmol/L Normal 21.0-32.0 [facility] Comment on above: Order Comment: 'TROP ' Serial specimen #1, #2 or #3: 1 Performed By: #### L 501.4020, L500.2500, L100.0100 ####[facility] [address] [place], [address] Creatinine [Mass/Vol] 0.77 mg/dL Normal 0.55-1.02 [facility] Comment on above: Order Comment: 'TROP ' Serial specimen #1, #2 or #3: 1 Result Comment: The validity of the calculated GFR GFRAA in patients over 70 years has not been determined. Clinical correlation is essential. Performed By: #### L 501.4020, L500.2500, L100.0100 ####[facility] [address] [place], [address] ECRCL 58.24 ml/min Normal [facility] Comment on above: Order Comment: 'TROP ' Serial specimen #1, #2 or #3: 1 Performed By: #### L 501.4020, L500.2500, L100.0100 ####[facility] [address] [place], [address] EST GFR - AA 93 mL/min Normal >60 [facility] Comment on above: Order Comment: 'TROP ' Serial specimen #1, #2 or #3: 1 Result Comment: Afri can Cambodian GFR Calc Performed By: #### L 501.4020, L500.2500, L100.0100 ####[facility] [address] [place], [address] GAP 11 Normal 5-15 [facility] Comment on above: Order Comment: 'TROP ' Serial specimen #1, #2 or #3: 1 Performed By: #### L 501.4020, L500.2500, L100.0100 ####[facility] [address] [place], [address] GFR/1.73 sq M.predicted among non-blacks MDRD (S/P/Bld) [Vol rate/Area] 77 mL/min/{1.73_m2} Normal >60 [facility] Comment on above: Order Comment: 'TROP ' Serial specimen #1, #2 or #3: 1 Result Comment: Non- GFR Calc Performed By: #### L 501.4020, L500.2500, L100.0100 ####[facility] [address] [place], [address] Glucose [Mass/Vol] 135 mg/dL High 74-106 [facility] Comment on above: Order Comment: 'TROP ' Serial specimen #1, #2 or #3: 1 Result Comment: Fast ing Glucose result greater than or equal to 126 mg/dL suggests DIABETES MELLITUS per A.D.A. criteria. Performed By: #### L 501.4020, L500.2500, L100.0100 ####[facility] [address] [place], [address] Potassium [Moles/Vol] 4.0 mmol/L Normal 3.5-5.1 [facility] Comment on above: Order Comment: 'TROP ' Serial specimen #1, #2 or #3: 1 Performed By: #### L 501.4020, L500.2500, L100.0100 ####[facility] [address] [place], [address] Sodium [Moles/Vol] 138 mmol/L Normal 136-145 [facility] Comment on above: Order Comment: 'TROP ' Serial specimen #1, #2 or #3: 1 Performed By: #### L 501.4020, L500.2500, L100.0100 ####[facility] [address] [place], [address] Urea nitrogen [Mass/Vol] 24 mg/dL High 7-18 [facility] Comment on above: Order Comment: 'TROP ' Serial specimen #1, #2 or #3: 1 Performed By: #### L 501.4020, L500.2500, L100.0100 ####[facility] [address] [place], [address] CBC W/Diff, Automatedon 02-0 2-5 Absolute Lymph 3.00 X10 3/uL Normal 0.83-4.51 [facility] Comment on above: Performed By: #### L 501.4020, L500.2500, L100.0100 ####[facility] [address] [place], [address] Absolute Neut 9.5 X10 3/uL High 2.0-7.7 [facility] Comment on above: Performed By: #### L 501.4020, L500.2500, L100.0100 ####[facility] [address] [place], [address] Basophils/100 WBC (Bld) 0.6 % Normal 0-1 [facility] Comment on above: Performed By: #### L 501.4020, L500.2500, L100.0100 ####[facility] [address] [place], [address] Eosinophils/100 WBC (Bld) 1.0 % Normal 0-5 [facility] Comment on above: Performed By: #### L 501.4020, L500.2500, L100.0100 ####[facility] [address] [place], [address] Erythrocyte distribution width (RBC) [Ratio] 14.8 % High 11.6-14.6 [facility] Comment on above: Performed By: #### L 501.4020, L500.2500, L100.0100 ####[facility] [address] [place], [address] Hematocrit (Bld) [Volume fraction] 43.3 % Normal 37-47 [facility] Comment on above: Performed By: #### L 501.4020, L500.2500, L100.0100 ####[facility] [address] [place], [address] Hemoglobin (Bld) [Mass/Vol] 14.6 g/dL Normal 12.0-15.0 [facility] Comment on above: Performed By: #### L 501.4020, L500.2500, L100.0100 ####[facility] [address] [place], [address] IG% 0.400 Normal 0.0-0.9 [facility] Comment on above: Result Comment: IG% - Immature Granulocytes (promyelocytes, myelocytes and metamyelocytes) > 1% indicates that a LEFT SHIFT is Present. Performed By: #### L 501.4020, L500.2500, L100.0100 ####[facility] [address] [place], [address] Lymphocytes/100 WBC (Bld) 21.5 % Normal 19-41 [facility] Comment on above: Performed By: #### L 501.4020, L500.2500, L100.0100 ####[facility] [address] [place], [address] MCH (RBC) [Entitic mass] 31.5 pg Normal 27.0-32.0 [facility] Comment on above: Performed By: #### L 501.4020, L500.2500, L100.0100 ####[facility] [address] [place], [address] MCHC (RBC) [Mass/Vol] 33.7 g/dL Normal 32-36 [facility] Comment on above: Performed By: #### L 501.4020, L500.2500, L100.0100 ####[facility] [address] [place], [address] MCV (RBC) [Entitic vol] 93.5 fL Normal 81-99 [facility] Comment on above: Performed By: #### L 501.4020, L500.2500, L100.0100 ####[facility] [address] [place], [address] Monocytes/100 WBC (Bld) 8.1 % Normal 0-10 [facility] Comment on above: Performed By: #### L 501.4020, L500.2500, L100.0100 ####[facility] [address] [place], [address] Neutrophils/100 WBC (Bld) 68.4 % Normal 47-70 [facility] Comment on above: Performed By: #### L 501.4020, L500.2500, L100.0100 ####[facility] [address] [place], [address] Nucleated RBC (Bld) [#/Vol] 0 10*3/uL Normal 0-5 [facility] Comment on above: Performed By: #### L 501.4020, L500.2500, L100.0100 ####[facility] [address] [place], [address] Platelet mean volume (Bld) [Entitic vol] 11.4 fL Normal 6.2-12.0 [facility] Comment on above: Performed By: #### L 501.4020, L500.2500, L100.0100 ####[facility] [address] [place], [address] Platelets (Bld) [#/Vol] 370 10*3/uL Normal 150-450 [facility] Comment on above: Performed By: #### L 501.4020, L500.2500, L100.0100 ####[facility] [address] [place], [address] RBC (Bld) [#/Vol] 4.63 10*6/uL Normal 4.2-5.4 [facility] Comment on above: Performed By: #### L 501.4020, L500.2500, L100.0100 ####[facility] [address] [place], [address] RDW SD 51.3 fl High 35.1-43.9 [facility] Comment on above: Performed By: #### L 501.4020, L500.2500, L100.0100 ####[facility] [address] [place], [address] WBC (Bld) [#/Vol] 13.9 10*3/uL High 4.4-11.0 [facility] Comment on above: Performed By: #### L 501.4020, L500.2500, L100.0100 ####[facility] [address] [place], [address] Chest PA and Lateralon 10-30 Chest PA and Lateral [facility] Imaging Services [address] [place] [address] Chest PA and Lateral MR#: [id number] Acct: [id number] Name: ITZ VEGAS Rep #: [id number] : 1945 F 79 From: Mio Tate MD PCP: Dr. Jaya Jung MD Status: REG ER Study: Chest PA and Lateral Date of Exam: 10/30/24 Exam# [id number] Ordering Dr: Nora Solano DO PROCEDURE: CHEST [...] Nora Solano DO; Dr. Jaya Jung MD Management Trainee: Signed Normal [facility] Emergency Department Summary on 10-30-2024 Emergency Department Summary [facility] Medical Records Department [address] [place] [address] Emergency Department Summary 10/30/24 MR#: [id number] Acct: [id number] Name: ITZ VEGAS Rep #: [id number] : 1945 79 From: Nora Solano DO [...] medication changes. No fever or chills reported. [facility] Medical History Anxiety MDD (major depressive disorder) [...] H 18 (more content not included)... Normal [facility] L501.4020on 10-30-2024 TROPONIN-I HS 16 pg/mL Normal 3.0-54.0 [facility] Comment on above: Order Comment: 'TROP ' Serial specimen #1, #2 or #3: 1 Result Comment: Annmarie javier Note: New Test Units and Gender Specific Reference Ranges. For more information see Policy Stat Procedure [place] High Sensitivity Troponin (TNIH) and attachments. Performed By: #### L 501.4020, L500.2500, L100.0100 ####[facility] [address] [place], [address] 12 Lead EKG performed [place] [facility] [place] 10-20-2024 12 Lead EKG performed by [facility] [address] [place] [address] 12 Lead EKG performed [place] [facility] 10/20/24 1021 MR#: [id number] Acct: [id number] Name: ITZ VEGAS Rep #: [id number] : 1945 79 From: Jose Webster NP [employer]-C Attending Dr: Jose Webster, [employer]RAF[employer]-C Status: DEP AMB Ordering Dr: Jose Webster [employer]-C Date: 10/20/24 [place] [facility] [place]: F C Admitted: BMS/12 Lead EKG performed by [facility] ECG Report Interpretation Sin us Bradycardia - occasional PAC # PACs = 1.-Nonspecific ST depression + Negative precordial T-waves -Nondiagnostic. ABNORMAL Electronically signed on 10/25/2024 at 09:59 by oJnathan Gerard Software Version [id number] 10/25/24 1000 Date Jose Webster NP [employer] CC: Dr. Jaya Jung MD Date Dictated: 10/20/24 1021 Date Transcribed: 10/20/24 102 Management Trainee: ZAHIDA Signed Normal [facility] CBC W/Diff, Automatedon 09-29 Absolute Lymph 1.91 X10 3/uL Normal 0.83-4.51 [facility] Comment on above: Performed By: #### L 501.9520, L500.4050, L506.1000, L100.0100 ####[facility] [address] [place], [address] Absolute Neut 10.4 X10 3/uL High 2.0-7.7 [facility] Comment on above: Performed By: #### L 501.9520, L500.4050, L506.1000, L100.0100 ####[facility] [address] [place], [address] Basophils/100 WBC (Bld) 0.5 % Normal 0-1 [facility] Comment on above: Performed By: #### L 501.9520, L500.4050, L506.1000, L100.0100 ####[facility] [address] [place], [address] Eosinophils/100 WBC (Bld) 0.7 % Normal 0-5 [facility] Comment on above: Performed By: #### L 501.9520, L500.4050, L506.1000, L100.0100 ####[facility] [address] [place], [address] Erythrocyte distribution width (RBC) [Ratio] 14.7 % High 11.6-14.6 [facility] Comment on above: Performed By: #### L 501.9520, L500.4050, L506.1000, L100.0100 ####[facility] [address] [place], [address] Hematocrit (Bld) [Volume fraction] 44.8 % Normal 37-47 [facility] Comment on above: Performed By: #### L 501.9520, L500.4050, L506.1000, L100.0100 ####[facility] [address] [place], [address] Hemoglobin (Bld) [Mass/Vol] 14.6 g/dL Normal 12.0-15.0 [facility] Comment on above: Performed By: #### L 501.9520, L500.4050, L506.1000, L100.0100 ####[facility] [address] [place], [address] IG% 0.700 Normal 0.0-0.9 [facility] Comment on above: Result Comment: IG% - Immature Granulocytes (promyelocytes, myelocytes and metamyelocytes) > 1% indicates that a LEFT SHIFT is Present. Performed By: #### L 501.9520, L500.4050, L506.1000, L100.0100 ####[facility] [address] [place], [address] Lymphocytes/100 WBC (Bld) 13.9 % Low 19-41 [facility] Comment on above: Performed By: #### L 501.9520, L500.4050, L506.1000, L100.0100 ####[facility] [address] [place], [address] MCH (RBC) [Entitic mass] 30.6 pg Normal 27.0-32.0 [facility] Comment on above: Performed By: #### L 501.9520, L500.4050, L506.1000, L100.0100 ####[facility] [address] [place], [address] MCHC (RBC) [Mass/Vol] 32.6 g/dL Normal 32-36 [facility] Comment on above: Performed By: #### L 501.9520, L500.4050, L506.1000, L100.0100 ####[facility] [address] [place], [address] MCV (RBC) [Entitic vol] 93.9 fL Normal 81-99 [facility] Comment on above: Performed By: #### L 501.9520, L500.4050, L506.1000, L100.0100 ####[facility] [address] [place], [address] Monocytes/100 WBC (Bld) 8.9 % Normal 0-10 [facility] Comment on above: Performed By: #### L 501.9520, L500.4050, L506.1000, L100.0100 ####[facility] [address] [place], [address] Neutrophils/100 WBC (Bld) 75.3 % High 47-70 [facility] Comment on above: Performed By: #### L 501.9520, L500.4050, L506.1000, L100.0100 ####[facility] [address] [place], [address] Nucleated RBC (Bld) [#/Vol] 0 10*3/uL Normal 0-5 [facility] Comment on above: Performed By: #### L 501.9520, L500.4050, L506.1000, L100.0100 ####[facility] [address] [place], [address] Platelet mean volume (Bld) [Entitic vol] 10.6 fL Normal 6.2-12.0 [facility] Comment on above: Performed By: #### L 501.9520, L500.4050, L506.1000, L100.0100 ####[facility] [address] [place], [address] Platelets (Bld) [#/Vol] 322 10*3/uL Normal 150-450 [facility] Comment on above: Performed By: #### L 501.9520, L500.4050, L506.1000, L100.0100 ####[facility] [address] [place], [address] RBC (Bld) [#/Vol] 4.77 10*6/uL Normal 4.2-5.4 [facility] Comment on above: Performed By: #### L 501.9520, L500.4050, L506.1000, L100.0100 ####[facility] [address] [place], [address] RDW SD 51.6 fl High 35.1-43.9 [facility] Comment on above: Performed By: #### L 501.9520, L500.4050, L506.1000, L100.0100 ####[facility] [address] [place], [address] WBC (Bld) [#/Vol] 13.8 10*3/uL High 4.4-11.0 [facility] Comment on above: Performed By: #### L 501.9520, L500.4050, L506.1000, L100.0100 ####[facility] [address] [place], [address] Comprehensive Metabolic [facility] 10-20-2024 Albumin [Mass/Vol] 3.3 g/dL Normal 3.2-5.0 [facility] Comment on above: Performed By: #### L 501.9520, L500.4050, L506.1000, L100.0100 ####[facility] [address] [place], [address] Albumin/Globulin [Mass ratio] 0.9 {ratio} Normal 0.9-2.4 [facility] Comment on above: Performed By: #### L 501.9520, L500.4050, L506.1000, L100.0100 ####[facility] [address] [place], [address] ALK P 84 U/L Normal 45-117 [facility] Comment on above: Performed By: #### L 501.9520, L500.4050, L506.1000, L100.0100 ####[facility] [address] [place], [address] ALT [Catalytic activity/Vol] 26 U/L Normal 13-56 [facility] Comment on above: Performed By: #### L 501.9520, L500.4050, L506.1000, L100.0100 ####[facility] [address] [place], [address] AST [Catalytic activity/Vol] 13 U/L Low 15-37 [facility] Comment on above: Performed By: #### L 501.9520, L500.4050, L506.1000, L100.0100 ####[facility] [address] [place], [address] Bilirubin [Mass/Vol] 0.50 mg/dL Normal 0.20-1.00 [facility] Comment on above: Result Comment: For patients on eltrombopag therapy, use of Dimension [place] TBIL is not recommended. Performed By: #### L 501.9520, L500.4050, L506.1000, L100.0100 ####[facility] [address] [place], [address] BUN/CRE 17.6 RATIO Normal 10-20 [facility] Comment on above: Performed By: #### L 501.9520, L500.4050, L506.1000, L100.0100 ####[facility] [address] [place], [address] CA,Total 9.5 mg/dL Normal 8.5-10.1 [facility] Comment on above: Performed By: #### L 501.9520, L500.4050, L506.1000, L100.0100 ####[facility] [address] [place], [address] Chloride [Moles/Vol] 102 mmol/L Normal 98-107 [facility] Comment on above: Performed By: #### L 501.9520, L500.4050, L506.1000, L100.0100 ####[facility] [address] [place], [address] CO2 [Moles/Vol] 28.0 mmol/L Normal 21.0-32.0 [facility] Comment on above: Performed By: #### L 501.9520, L500.4050, L506.1000, L100.0100 ####[facility] [address] [place], [address] Creatinine [Mass/Vol] 0.68 mg/dL Normal 0.55-1.02 [facility] Comment on above: Result Comment: The validity of the calculated GFR GFRAA in patients over 70 years has not been determined. Clinical correlation is essential. Performed By: #### L 501.9520, L500.4050, L506.1000, L100.0100 ####[facility] [address] [place], [address] EST GFR - AA 107 mL/min Normal >60 [facility] Comment on above: Result Comment: Afri can Cambodian GFR Calc Performed By: #### L 501.9520, L500.4050, L506.1000, L100.0100 ####[facility] [address] [place], [address] GAP 8 Normal 5-15 [facility] Comment on above: Performed By: #### L 501.9520, L500.4050, L506.1000, L100.0100 ####[facility] [address] [place], [address] GFR/1.73 sq M.predicted among non-blacks MDRD (S/P/Bld) [Vol rate/Area] 89 mL/min/{1.73_m2} Normal >60 [facility] Comment on above: Result Comment: Non- GFR Calc Performed By: #### L 501.9520, L500.4050, L506.1000, L100.0100 ####[facility] [address] [place], [address] Globulin (S) [Mass/Vol] 3.8 g/dL Normal 2.2-4.2 [facility] Comment on above: Performed By: #### L 501.9520, L500.4050, L506.1000, L100.0100 ####[facility] [address] [place], [address] Glucose [Mass/Vol] 108 mg/dL High 74-106 [facility] Comment on above: Result Comment: Fast ing Glucose result from 100 to 125 mg/dL suggests IMPAIRED HOMEOSTASIS per A.D.A. criteria. Performed By: #### L 501.9520, L500.4050, L506.1000, L100.0100 ####[facility] [address] [place], [address] Potassium [Moles/Vol] 4.8 mmol/L Normal 3.5-5.1 [facility] Comment on above: Performed By: #### L 501.9520, L500.4050, L506.1000, L100.0100 ####[facility] [address] [place], [address] Sodium [Moles/Vol] 137 mmol/L Normal 136-145 [facility] Comment on above: Performed By: #### L 501.9520, L500.4050, L506.1000, L100.0100 ####[facility] [address] [place], [address] T PROT 7.1 g/dL Normal 6.4-8.2 [facility] Comment on above: Performed By: #### L 501.9520, L500.4050, L506.1000, L100.0100 ####[facility] [address] [place], [address] Urea nitrogen [Mass/Vol] 12 mg/dL Normal 7-18 [facility] Comment on above: Performed By: #### L 501.9520, L500.4050, L506.1000, L100.0100 ####[facility] [address] [place], [address] Office Visit Reporton 2024 Office Visit Report [facility] [address] [place] [address] OFFICE VISIT Date of Service: 10/20/24 MR#: [id number] Acct: [id number] Patient: ITZ VEGAS Rep #: [id number] : 1945 Provider: PRABHJOT chavira Age/Sex: 79/F [place] [facility] Status: Signed Intake Vital Signs 10/11/24 10:44 Height 5 ft 3 in Weight: 182 lb Intake Visit Reasons: s/p DCCV Allergies codeine Allergy (Verified 09/15/24 13:03) Rash Penicillins (PCN) Allergy (Verified 09/15/24 13:03) Rash Have you fallen in the past year?: No Nurse's Note: Pt in office for post DCCV EKG. EKG placed on [facility]'s desk. Pt aware office will call with further recommendations. 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 Clinical Quality Measures Falls Risk Screening/Assistive Devices Have you fallen in the past year?: No 10/27/24 1302 Date Jose Buchanan Signature: Date (if applicable) CC: Normal [facility] Thyroid Stim Hormone (TSH)on 10-20-2024 TSH 1.510 uIU/mL Normal 0.358-3.740 [facility] Comment on above: Performed By: #### L 501.9520, L500.4050, L506.1000, L100.0100 ####[facility] [address] [place], [address] Vitamin D,25 Hydroxyon 10-20 Vitamin D 25-OH 38.4 ng/mL Normal [facility] Comment on above: Result Comment: Akua min D 25(OH) Status Range Deficiency <20 ng/mL (50nmol/L) Insufficiency 20 - 30 ng/mL (50 - 75 nmol/L) Sufficiency 30 - 100 ng/mL (75 - 250 nmol/L) Toxicity >100 ng/mL (>250 nmol/L) Performed By: #### L 501.9520, L500.4050, L506.1000, L100.0100 ####[facility] [address] [facility] [place], [address] Procedure Reporton Procedure Report [facility] Medical Records Department [address] [facility] [place] [address] Procedure Report 10/11/24 1305 MR#: [id number] Acct: [id number] Name: ITZ VEGAS Rep #: [id number] : 1945 79 From: Jonathan Gerard MD PCP: Dr. Jaya Jung MD Status:[facility] Location: [facility] Problems Associated Problem List Diagnoses (1) Atrial flutter with rapid ventricular response: Non-invasive Procedural Procedure Information Date of Procedure: 10/11/24 Pre-Procedure Diagnosis: Atrial fibrillation Post-Procedure Diagnosis: Same Procedure Performed:: DC cardioversion rn labor and delivery: No Procedure Time Out: 12:20 Procedure Start [...] MD; Dr. Jaya Jung MD Signed Normal [facility] Procedure Report [facility] Medical Records Department [address] [place] [address] Procedure Report 10/11/24 1254 MR#: [id number] Acct: [id number] Name: ITZ VEGAS Rep #: [id number] : 1945 79 From: Jens Christine DO PCP: Dr. Jaya Jung MD [place] [place] [facility] Procedures Pulmonary Pulmonary Procedures /Diagnostic Testin Con Sedation Non-invasive Procedural Procedure Information Description of procedure: CONSCIOUS SEDATION REPORT DATE OF SERVICE: October 11, 2024 BRIEF HISTORY OF PRESENT ILLNESS: The patient is a 79-year-old female who presented to [facility] to undergo an elective outpatient cardioversion due [...] DO; Dr. Jaya Jung MD Signed Normal [facility] Basic Metabolic Profile (BMP )on 10-05-2024 BUN/CRE 19.6 RATIO Normal 10-20 [facility] Comment on above: Performed By: #### L 501.4020, L100.0100, L501.5200, L300.8000, L501.3620, L500.4050, L3600.5100, L501.9520 #### [facility] [address] [place], [address] CA,Total 9.9 mg/dL Normal 8.5-10.1 [facility] Comment on above: Performed By: #### L 501.4020, L100.0100, L501.5200, L300.8000, L501.3620, L500.4050, L3600.5100, L501.9520 #### [facility] [address] [place], [address] Chloride [Moles/Vol] 103 mmol/L Normal 98-107 [facility] Comment on above: Performed By: #### L 501.4020, L100.0100, L501.5200, L300.8000, L501.3620, L500.4050, L3600.5100, L501.9520 #### [facility] [address] [place], [address] CO2 [Moles/Vol] 30.0 mmol/L Normal 21.0-32.0 [facility] Comment on above: Performed By: #### L 501.4020, L100.0100, L501.5200, L300.8000, L501.3620, L500.4050, L3600.5100, L501.9520 #### [facility] [address] [place], [address] Creatinine [Mass/Vol] 0.82 mg/dL Normal 0.55-1.02 [facility] Comment on above: Result Comment: The validity of the calculated GFR GFRAA in patients over 70 years has not been determined. Clinical correlation is essential. Performed By: #### L 501.4020, L100.0100, L501.5200, L300.8000, L501.3620, L500.4050, L3600.5100, L501.9520 #### [facility] [address] [place], [address] EST GFR - AA 87 mL/min Normal >60 [facility] Comment on above: Result Comment: Afri can Cambodian GFR Calc Performed By: #### L 501.4020, L100.0100, L501.5200, L300.8000, L501.3620, L500.4050, L3600.5100, L501.9520 #### [facility] [address] [place], [address] GAP 5 Normal 5-15 [facility] Comment on above: Performed By: #### L 501.4020, L100.0100, L501.5200, L300.8000, L501.3620, L500.4050, L3600.5100, L501.9520 #### [facility] [address] [place], [address] GFR/1.73 sq M.predicted among non-blacks MDRD (S/P/Bld) [Vol rate/Area] 72 mL/min/{1.73_m2} Normal >60 [facility] Comment on above: Result Comment: Non- GFR Calc Performed By: #### L 501.4020, L100.0100, L501.5200, L300.8000, L501.3620, L500.4050, L3600.5100, L501.9520 #### [facility] [address] [place], [address] Glucose [Mass/Vol] 119 mg/dL High 74-106 [facility] Comment on above: Result Comment: Fast ing Glucose result from 100 to 125 mg/dL suggests IMPAIRED HOMEOSTASIS per A.D.A. criteria. Performed By: #### L 501.4020, L100.0100, L501.5200, L300.8000, L501.3620, L500.4050, L3600.5100, L501.9520 #### [facility] [address] [place], [address] Potassium [Moles/Vol] 4.3 mmol/L Normal 3.5-5.1 [facility] Comment on above: Performed By: #### L 501.4020, L100.0100, L501.5200, L300.8000, L501.3620, L500.4050, L3600.5100, L501.9520 #### [facility] [address] [place], [address] Sodium [Moles/Vol] 138 mmol/L Normal 136-145 [facility] Comment on above: Performed By: #### L 501.4020, L100.0100, L501.5200, L300.8000, L501.3620, L500.4050, L3600.5100, L501.9520 #### [facility] [address] [place], [address] Urea nitrogen [Mass/Vol] 16 mg/dL Normal 7-18 [facility] Comment on above: Performed By: #### L 501.4020, L100.0100, L501.5200, L300.8000, L501.3620, L500.4050, L3600.5100, L501.9520 #### [facility] [address] [place], [address] Chest PA and Lateralon 10-05 Chest PA and Lateral [facility] Imaging [facility] [address] [place] [address] Chest PA and Lateral MR#: [id number] Acct: [id number] Name: ITZ VEGAS Rep #: [id number] : 1945 F 79 From: Dayana anderson MD PCP: Dr. Jaya Jung MD [place] [facility] Study: Chest PA and Lateral Date of Exam: 10/05/24 Exam# [id number] Ordering Dr: Rosalind Moses PA [id number] HISTORY: For DCCV. TECHNIQUE: XR Chest 2 [...] CC: Dr. Jaya Jung MD; RAFAEL Fiore Management Trainee: Signed Normal [facility] Cardiology Visit Reporton Cardiology Visit Report [facility] [place] [facility] [address] [place], [place] [address] OFFICE VISIT Date of Service: 09/15/24 MR#: [id number] Acct: [id number] Name: ITZ VEGAS Rep #: [id number] : 1945 Provider: RAFAEL Her Age/Sex: 79/F Location[place] [facility] Status: Signed HPI HPI History of Present [...] rate is controlled. She is living at [facility]. 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 Normal [facility] MR/BMS.BPon 09-14-2024 MR/BMS.BP [address], [place] [address] OFFICE VISIT Date of Service: 09/14/24 MR#: [id number] Acct: [id number] Name: ASCENCIONITZ Demetri Rep #: [id number] : 1945 Provider: Dr. Moe Dexter se, DO Age/Sex: 79/F [place] [facility] Status: Signed Intake Vital Signs 06/15/24 14:20 [...] super. Has been really enjoying living at [facility] in the assisted living facility. Was happy to be there when she was having a run of Afib. Has been getting out every day and socializing. Is feeling good about [place] for the first time in years. 's [...] disorder, single (more content not included)... Normal [facility] Non-Senior Medical Technologist Cytology Reporton Non-Senior Medical Technologist Cytology Report . Pathology Reports Accession: Collected Date/Time: Received Date/Time: Pathologist: [id number] 08/31/2024 11:00 JORGE 09/02/2024 10:01 MD GRACE VITAL Non-Senior Medical Technologist Cytology Report CLINICAL INFORMATION: Bladder Cancer DIAGNOSTIC [...] Electronically Signed by Pathology Report verified by [facility] Screened by: JOSE Electronically signed by GRACE VIZCARRA MD Sign-Out Date: 09/05/2024 10:27 Performing Lab: [facility], [address] [place] [address] Pathology Dept Disclaimer If ancillary studies were utilized, the following Laboratory Developed Test (LDT) disclaimer will apply: Under CLIA requirements, [facility] Pathology Laboratory is qualified to perform high complexity testing. For all ancillary stains, positive and negative controls stain appropriately. Performance characteristics of immunohistochemical and chromogenic in-situ hybridization tests have been determined by [facility] Pathology Laboratory. These tests are used for clinical purposes, They should not be regarded as investigational or for research. Normal [facility] Echo Complete W/ Contraston 08-15-2024 Echo Complete W/ Contrast [facility] [address] [place] [address] Echo Complete W/ Contrast 08/15/24 1407 MR#: [id number] Acct: [id number] Name: ITZ VEGAS Rep #: [id number] : 1945 78 From: Jonathan Gerard MD Attending Dr: Cabrera Hale DRAFTER STRUCTURAL-C Status: [facility] Ordering Dr: Cabrera Hale DRAFTER STRUCTURAL DRAFTER STRUCTURAL-C Date: 08/15/24 Location: [facility] Sex: F C Admitted: Reason For Study: [...] Hale Performed By: Dipak Jesus RCS 08/15/24 1725 Date Jonathan Gerard MD CC: DRAFTER STRUCTURAL-C Cabrera Hale; Dr. Jaya Jung MD Date Dictated: 08/15/24 1407 Date Transcribed: 08/15/24 172 Management Trainee: Signed Normal [facility] 12 Lead EKG performed by [facility] on 08-02-2024 12 Lead EKG performed by [facility] [address] [place] [address] 12 Lead EKG performed by [facility] 08/02/24 1514 MR#: [id number] Acct: [id number] Name: ITZ VEGAS Rep #: [id number] : 1945 78 From: Cabrera Hale NP DRAFTER STRUCTURAL-C Attending Dr: MORGAN HuntC Status: DEP A RAMANDEEP Ordering Dr: Cabrera Hale NP DRAFTER STRUCTURAL-C Date: 08/02/24 [place] [facility] [place]: F C Admitted: [facility]12 Lead EKG performed by [facility] ECG Report Interpretation Atr ial flutter-Electronically signed on 08/11/2024 at 08:02 by Jonathan Gerardwood Software Version [id number] 08/11/24 0804 Date Cabrera Hale NP DRAFTER STRUCTURAL-C CC: Dr. Jaya Jung MD Date Dictated: 08/02/241513 Date Transcribed: 08/02/241513 Management Trainee: JADEN Signed Normal [facility] Cardiology Visit Reporton Cardiology Visit Report [facility] [place] [address] OFFICE VISIT Date of Service: 08/02/24 MR#: [id number] Acct: [id number] Name: ITZ VEGAS Rep #: [id number] : 1945 Provider: PRABHJOT escudero Age/Sex: 78/F [place] [facility] [place]: Signed HPI HPI History of Present [...] of her PFT. She is living at [facility]. 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 Normal [facility] Myoglobin, Serumon 4 Myoglobin, Ser 30 ng/mL Normal 25-58 [facility] Comment on above: Order Comment: Speci men Comment: A duplicate report has been generateddue to demographicSpecimen Comment: updates. Result Comment: Perf ormed at: CB - [facility] [address], [place], [place] [id number] Meat Hostess: Sergio Pro PhD, Phone: [phone] Performed By: #### L 501.4020, L100.0100, L501.5200, L300.8000, L501.3620, L500.4050, L3600.5100, L501.9520 ####[facility] [address] [place], [address] L3300.0940on 07-17-2024 VIT D,25 HYDROX Normal [facility] Comment on above: Result Comment: TEST RESULTS LIMITS Vitamin D, 25-Hydroxy 32.8 ng/mL 30.0-100.0 Vitamin D deficiency has been defined by the [place] of Medicine and an Endocrine Society practice guideline as a level of serum 25-OH vitamin D less than 20 ng/mL (1,2). The Endocrine Society went on to further define vitamin D insufficiency as a level between 21 and 29 ng/mL (2). 1. IOM ([place] of [employer]). 2010. Dietary reference intakes for calcium and D. [place]: The National Academies Press. 2. Rufus MF, Enoch NC, Ajit-Himanshu CASSIDY, et al. Evaluation, treatment, and prevention of vitamin D deficiency: an Endocrine Society clinical practice guideline. JCEM. 2011 Mar; 96(7):1911-30. [facility] AT [facility]. ORIGINAL REPORT ON FILE IN LAB CONTAINS ADDITIONAL TEST SITE INFORMATION. Performed By: #### L 501.4020, L100.0100, L501.5200, L300.8000, L501.3620, L500.4050, L3600.5100, L501.9520 #### [facility] [address] [place], [address] L5000.0010on 07-16-2024 BNP Normal [facility] Comment on above: Result Comment: TEST RESULTS LIMITS B-Type Natriuretic Peptide 110.6 High pg/mL 0.0-100.0 Siemens ADVIA Centaur XP methodology TESTING PERFORMED AT [facility]. ORIGINAL REPORT ON FILE IN LAB CONTAINS ADDITIONAL TEST SITE INFORMATION. Performed By: #### L 5000.0010 #### [facility] [address] [place], [address] CBC W/Diff, Automatedon 06-28 Absolute Lymph 2.43 X10 3/uL Normal 0.83-4.51 [facility] Comment on above: Performed By: #### L 501.4020, L100.0100, L501.5200, L300.8000, L501.3620, L500.4050, L3600.5100, L501.9520 #### [facility] [address] [place], [address] Absolute Neut 14.0 X10 3/uL High 2.0-7.7 [facility] Comment on above: Performed By: #### L 501.4020, L100.0100, L501.5200, L300.8000, L501.3620, L500.4050, L3600.5100, L501.9520 #### [facility] [address] [place], [address] Basophils/100 WBC (Bld) 0.4 % Normal 0-1 [facility] Comment on above: Performed By: #### L 501.4020, L100.0100, L501.5200, L300.8000, L501.3620, L500.4050, L3600.5100, L501.9520 #### [facility] [address] [place], [address] Eosinophils/100 WBC (Bld) 0.6 % Normal 0-5 [facility] Comment on above: Performed By: #### L 501.4020, L100.0100, L501.5200, L300.8000, L501.3620, L500.4050, L3600.5100, L501.9520 #### [facility] [address] [place], [address] Erythrocyte distribution width (RBC) [Ratio] 15.4 % High 11.6-14.6 [facility] Comment on above: Performed By: #### L 501.4020, L100.0100, L501.5200, L300.8000, L501.3620, L500.4050, L3600.5100, L501.9520 #### [facility] [address] [place], [address] Hematocrit (Bld) [Volume fraction] 43.0 % Normal 37-47 [facility] Comment on above: Performed By: #### L 501.4020, L100.0100, L501.5200, L300.8000, L501.3620, L500.4050, L3600.5100, L501.9520 #### [facility] [address] [place], [address] Hemoglobin (Bld) [Mass/Vol] 13.6 g/dL Normal 12.0-15.0 [facility] Comment on above: Performed By: #### L 501.4020, L100.0100, L501.5200, L300.8000, L501.3620, L500.4050, L3600.5100, L501.9520 #### [facility] [address] [place], [address] IG% 0.400 Normal 0.0-0.9 [facility] Comment on above: Result Comment: IG% - Immature Granulocytes (promyelocytes, myelocytes and metamyelocytes) > 1% indicates that a LEFT SHIFT is Present. Performed By: #### L 501.4020, L100.0100, L501.5200, L300.8000, L501.3620, L500.4050, L3600.5100, L501.9520 #### [facility] [address] [facility] [place], [address] Lymphocytes/100 WBC (Bld) 13.7 % Low 19-41 [facility] Comment on above: Performed By: #### L 501.4020, L100.0100, L501.5200, L300.8000, L501.3620, L500.4050, L3600.5100, L501.9520 #### [facility] [address] [place], [address] MCH (RBC) [Entitic mass] 29.1 pg Normal 27.0-32.0 [facility] Comment on above: Performed By: #### L 501.4020, L100.0100, L501.5200, L300.8000, L501.3620, L500.4050, L3600.5100, L501.9520 #### [facility] [address] [place], [address] MCHC (RBC) [Mass/Vol] 31.6 g/dL Low 32-36 [facility] Comment on above: Performed By: #### L 501.4020, L100.0100, L501.5200, L300.8000, L501.3620, L500.4050, L3600.5100, L501.9520 #### [facility] [address] [place], [address] MCV (RBC) [Entitic vol] 92.1 fL Normal 81-99 [facility] Comment on above: Performed By: #### L 501.4020, L100.0100, L501.5200, L300.8000, L501.3620, L500.4050, L3600.5100, L501.9520 #### [facility] [address] [place], [address] Monocytes/100 WBC (Bld) 6.1 % Normal 0-10 [facility] Comment on above: Performed By: #### L 501.4020, L100.0100, L501.5200, L300.8000, L501.3620, L500.4050, L3600.5100, L501.9520 #### [facility] [address] [place], [address] Neutrophils/100 WBC (Bld) 78.8 % High 47-70 [facility] Comment on above: Performed By: #### L 501.4020, L100.0100, L501.5200, L300.8000, L501.3620, L500.4050, L3600.5100, L501.9520 #### [facility] [address] [place], [place], [address] Nucleated RBC (Bld) [#/Vol] 0 10*3/uL Normal 0-5 [facility] Comment on above: Performed By: #### L 501.4020, L100.0100, L501.5200, L300.8000, L501.3620, L500.4050, L3600.5100, L501.9520 #### [facility] [address] [place], [address] Platelet mean volume (Bld) [Entitic vol] 10.4 fL Normal 6.2-12.0 [facility] Comment on above: Performed By: #### L 501.4020, L100.0100, L501.5200, L300.8000, L501.3620, L500.4050, L3600.5100, L501.9520 #### [facility] [address] [place], [address] Platelets (Bld) [#/Vol] 398 10*3/uL Normal 150-450 [facility] Comment on above: Performed By: #### L 501.4020, L100.0100, L501.5200, L300.8000, L501.3620, L500.4050, L3600.5100, L501.9520 #### [facility] [address] [place], [address] RBC (Bld) [#/Vol] 4.67 10*6/uL Normal 4.2-5.4 [facility] Comment on above: Performed By: #### L 501.4020, L100.0100, L501.5200, L300.8000, L501.3620, L500.4050, L3600.5100, L501.9520 #### [facility] [address] [place], [address] RDW SD 52.1 fl High 35.1-43.9 [facility] Comment on above: Performed By: #### L 501.4020, L100.0100, L501.5200, L300.8000, L501.3620, L500.4050, L3600.5100, L501.9520 #### [facility] [address] [place], [address] WBC (Bld) [#/Vol] 17.8 10*3/uL High 4.4-11.0 [facility] Comment on above: Performed By: #### L 501.4020, L100.0100, L501.5200, L300.8000, L501.3620, L500.4050, L3600.5100, L501.9520 #### [facility] [address] [place], [address] CPK Total, Creatine Kinaseon 07-12-2024 CPK TOTAL 48 U/L Normal 26-192 [facility] Comment on above: Order Comment: 1 Performed By: #### L 501.4020, L100.0100, L501.5200, L300.8000, L501.3620, L500.4050, L3600.5100, L501.9520 #### [facility] [address] [place], [address] Comprehensive Metabolic Prof ilon 07-12-2024 Albumin [Mass/Vol] 3.4 g/dL Normal 3.2-5.0 [facility] Comment on above: Order Comment: 1 Performed By: #### L 501.4020, L100.0100, L501.5200, L300.8000, L501.3620, L500.4050, L3600.5100, L501.9520 #### [facility] [address] [place], [address] Albumin/Globulin [Mass ratio] 0.9 {ratio} Normal 0.9-2.4 [facility] Comment on above: Order Comment: 1 Performed By: #### L 501.4020, L100.0100, L501.5200, L300.8000, L501.3620, L500.4050, L3600.5100, L501.9520 #### [facility] [address] [place], [address] ALK P 123 U/L High 45-117 [facility] Comment on above: Order Comment: 1 Performed By: #### L 501.4020, L100.0100, L501.5200, L300.8000, L501.3620, L500.4050, L3600.5100, L501.9520 #### [facility] [address] [place], [address] ALT [Catalytic activity/Vol] 22 U/L Normal 13-56 [facility] Comment on above: Order Comment: 1 Performed By: #### L 501.4020, L100.0100, L501.5200, L300.8000, L501.3620, L500.4050, L3600.5100, L501.9520 #### [facility] [address] [place], [address] AST [Catalytic activity/Vol] 11 U/L Low 15-37 [facility] Comment on above: Order Comment: 1 Performed By: #### L 501.4020, L100.0100, L501.5200, L300.8000, L501.3620, L500.4050, L3600.5100, L501.9520 #### [facility] [address] [place], [address] Bilirubin [Mass/Vol] 0.50 mg/dL Normal 0.20-1.00 [facility] Comment on above: Order Comment: 1 Result Comment: For patients on eltrombopag therapy, use of Dimension [place] TBIL is not recommended. Performed By: #### L 501.4020, L100.0100, L501.5200, L300.8000, L501.3620, L500.4050, L3600.5100, L501.9520 #### [facility] [address] [place], [address] BUN/CRE 23.8 RATIO High 10-20 [facility] Comment on above: Order Comment: 1 Performed By: #### L 501.4020, L100.0100, L501.5200, L300.8000, L501.3620, L500.4050, L3600.5100, L501.9520 #### [facility] [address] [place], [address] CA,Total 9.6 mg/dL Normal 8.5-10.1 [facility] Comment on above: Order Comment: 1 Performed By: #### L 501.4020, L100.0100, L501.5200, L300.8000, L501.3620, L500.4050, L3600.5100, L501.9520 #### [facility] [address] [place], [address] Chloride [Moles/Vol] 102 mmol/L Normal 98-107 [facility] Comment on above: Order Comment: 1 Performed By: #### L 501.4020, L100.0100, L501.5200, L300.8000, L501.3620, L500.4050, L3600.5100, L501.9520 #### [facility] [address] [place], [address] CO2 [Moles/Vol] 29.0 mmol/L Normal 21.0-32.0 [facility] Comment on above: Order Comment: 1 Performed By: #### L 501.4020, L100.0100, L501.5200, L300.8000, L501.3620, L500.4050, L3600.5100, L501.9520 #### [facility] [address] [place], [address] Creatinine [Mass/Vol] 0.63 mg/dL Normal 0.55-1.02 [facility] Comment on above: Order Comment: 1 Result Comment: The validity of the calculated GFR GFRAA in patients over 70 years has not been determined. Clinical correlation is essential. Performed By: #### L 501.4020, L100.0100, L501.5200, L300.8000, L501.3620, L500.4050, L3600.5100, L501.9520 #### [facility] [address] [place], [address] EST GFR - AA 118 mL/min Normal >60 [facility] Comment on above: Order Comment: 1 Result Comment: Afri can Camb[place]ian GFR Calc Performed By: #### L 501.4020, L100.0100, L501.5200, L300.8000, L501.3620, L500.4050, L3600.5100, L501.9520 #### [facility] [address] [place], [address] GAP 7 Normal 5-15 [facility] Comment on above: Order Comment: 1 Performed By: #### L 501.4020, L100.0100, L501.5200, L300.8000, L501.3620, L500.4050, L3600.5100, L501.9520 #### [facility] [address] [place], [address] GFR/1.73 sq M.predicted among non-blacks MDRD (S/P/Bld) [Vol rate/Area] 97 mL/min/{1.73_m2} Normal >60 [facility] Comment on above: Order Comment: 1 Result Comment: Non- GFR Calc Performed By: #### L 501.4020, L100.0100, L501.5200, L300.8000, L501.3620, L500.4050, L3600.5100, L501.9520 #### [facility] [address] [place], [address] Globulin (S) [Mass/Vol] 3.8 g/dL Normal 2.2-4.2 [facility] Comment on above: Order Comment: 1 Performed By: #### L 501.4020, L100.0100, L501.5200, L300.8000, L501.3620, L500.4050, L3600.5100, L501.9520 #### [facility] [address] [place], [address] Glucose [Mass/Vol] 122 mg/dL High 74-106 [facility] Comment on above: Order Comment: 1 Result Comment: Fast ing Glucose result from 100 to 125 mg/dL suggests IMPAIRED HOMEOSTASIS per A.D.A. criteria. Performed By: #### L 501.4020, L100.0100, L501.5200, L300.8000, L501.3620, L500.4050, L3600.5100, L501.9520 #### [facility] [address] [place], [address] Potassium [Moles/Vol] 3.8 mmol/L Normal 3.5-5.1 [facility] Comment on above: Order Comment: 1 Performed By: #### L 501.4020, L100.0100, L501.5200, L300.8000, L501.3620, L500.4050, L3600.5100, L501.9520 #### [facility] [address] [place], [address] Sodium [Moles/Vol] 138 mmol/L Normal 136-145 [facility] Comment on above: Order Comment: 1 Performed By: #### L 501.4020, L100.0100, L501.5200, L300.8000, L501.3620, L500.4050, L3600.5100, L501.9520 #### [facility] [address] [place], [address] T PROT 7.2 g/dL Normal 6.4-8.2 [facility] Comment on above: Order Comment: 1 Performed By: #### L 501.4020, L100.0100, L501.5200, L300.8000, L501.3620, L500.4050, L3600.5100, L501.9520 #### [facility] [address] [place], [address] Urea nitrogen [Mass/Vol] 15 mg/dL Normal 7-18 [facility] Comment on above: Order Comment: 1 Performed By: #### L 501.4020, L100.0100, L501.5200, L300.8000, L501.3620, L500.4050, L3600.5100, L501.9520 #### [facility] [address] [place], [place], [address] D-Dimer Quantitative (DVT/PE )on 07-12-2024 D-DIMER QUANT 0.42 FEU/ug/m Normal 0.27-0.49 [facility] Comment on above: Result Comment: NORM AL D-Dimer level (<0.50) indicates no DVT or PE. Performed By: #### L 501.4020, L100.0100, L501.5200, L300.8000, L501.3620, L500.4050, L3600.5100, L501.9520 #### [facility] [address] [place], [place], [id number] HIP, UNI W/ Pelvis 2-3 Views on 07-12-2024 HIP, UNI W/ Pelvis 2-3 Views [facility] Imaging Services [address] [place], [place] [address] HIP, UNI W/ Pelvis 2-3 Views MR#: [id number] Acct: [id number] Name: ITZ VEGAS Rep #: [id number] : 1945 F 78 From: Honorio goodson MD PCP: Dr. Jaya Jung MD Status: [facility] Study: HIP, UNI W/ Pelvis 2-3 Views Date of Exam: Exam# [id number] Ordering Dr: Karl Villar MD [id number] STUDY: X-RAY - PELVIS AND LEFT HIP [...] Karl Villar MD; Dr. Jaya Jung MD Management Trainee: Signed Normal [facility] L501.4020on 07-12-2024 TROPONIN-I HS 12 pg/mL Normal 3.0-54.0 [facility] Comment on above: Order Comment: 1 Result Comment: Plea se Note: New Test Units and Gender Specific Reference Ranges. For more information see Policy Stat Procedure [place] High Sensitivity Troponin (TNIH) and attachments. Performed By: #### L 501.4020, L100.0100, L501.5200, L300.8000, L501.3620, L500.4050, L3600.5100, L501.9520 #### [facility] [address] [place], [place], [address] Magnesiumon 07-12-2024 Magnesium [Mass/Vol] 1.6 mg/dL Normal 1.6-2.6 [facility] Comment on above: Order Comment: 1 Performed By: #### L 501.4020, L100.0100, L501.5200, L300.8000, L501.3620, L500.4050, L3600.5100, L501.9520 #### [facility] [address] [place], [address] Thyroid Stim Hormone (TSH)on 07-12-2024 TSH 1.560 uIU/mL Normal 0.358-3.740 [facility] Comment on above: Order Comment: 1 Performed By: #### L 501.4020, L100.0100, L501.5200, L300.8000, L501.3620, L500.4050, L3600.5100, L501.9520 ####[facility] [id number] [place], [address] MR/BMS.BPon 06-15-2024 MR/BMS.BP [address], [address] [place] [address] OFFICE VISIT Date of Service: 06/15/24 MR#: [id number] Acct: [id number] Name: ITZ VEGAS Rep #: [id number] : 1945 Provider: Dr. Moe Dexter se, DO Age/Sex: 78/F [place] [facility] [place]: Signed Intake Vital Signs 03/30/24 15:03 [...] in: walking and other details: silver sneakers HPI History of Present Illness History provided by: [...] left her house and moved in to [facility] at the beginning of April. Her does live in the memory care unit at [facility] as well. Despite this, she has actually not been spending as much time at the memory care unit because she is participating in all the activities at [facility]. She made this decision and told her children the decision after she had already decided. Reports that she was feeling lonely and depressed living at her home in [place]. She has been very happy with moving. [...] pain, nevaeh (more content not included)... Normal [facility] Thoracic Spine 2 Viewson Thoracic Spine 2 Views [facility] Imaging Services [address] [place] [address] Thoracic Spine 2 Views MR#: [id number] Acct: [id number] Name: ITZ VEGAS Rep #: [id number] : 1945 F 78 From: Randolph Diggs MD PCP: Dr. Jaya Jung MD Status: REG CLI Study: Thoracic Spine 2 Views Date of Exam: 05/23/24 Exam# [id number] Ordering Dr: Jaya Jung MD [id number] EXAM: XR THORACIC SPINE, 2 VIEWS CLINICAL [...] EDT , CC: Dr. Jaya Jung MD Management Trainee: Signed Normal [facility] Basophil percentageOrdered B y: Dr. Jung on 03-05-2023 Chloride [Moles/Vol] 101 mmol/L 98-107 [facility] Glucose [Mass/Vol] 127 mg/dL 74-106 [facility] Comment on above: Fasting Glucose resu lt greater than or equal to 126 mg/dL suggests DIABETES MELLITUS per A.D.A. criteria. Potassium [Moles/Vol] 4.1 mmol/L 3.5-5.1 [facility] Sodium [Moles/Vol] 140 mmol/L 136-145 [facility] - Chemistry and C hemistry - challengeOrdered By: Dr. Jung on 03-05-2023 CO2 [Moles/Vol] 33.0 mmol/L 21.0-32.0 [facility] Urea nitrogen/Creatinine [Mass ratio] 22.2 mg/mg 10-20 [facility] No Panel InformationOrdered By: Dr. Jung on 03-05-2023 Estimated GFR (MDRD) Amer 101 mL/min >60 [facility] Comment on above: GFR Calc Estimated GFR (MDRD) Non-Af Amer 83 mL/min >60 [facility] Comment on above: Non- GFR Calc Serum or plasma calcium donny urement (mass/volume)Ordered By: Dr. Jung on 03-05-2023 Calcium [Mass/Vol] 9.4 mg/dL 8.5-10.1 [facility] Serum or plasma creatinine m easurement (mass/volume)Ordered By: Dr. Jung on 03-05-2023 Creatinine [Mass/Vol] 0.72 mg/dL 0.55-1.02 [facility] Comment on above: The validity of the calculated GFR & GFRAA in patients over 70 years has not been determined. Clinical correlation is essential. Serum or plasma urea nitroge n measurement (mass/volume)Ordered By: Dr. Jung on 03-05-2023 Urea nitrogen [Mass/Vol] 16 mg/dL 7-18 [facility] Thin prep Papanicolaou smear with manual screeningOrdered By: Dr. Jung on 03-05-2023 Thin prep Papanicolaou smear with manual screening 6 5-15 [facility] No Panel InformationOrdered By: Dr. Jung on 02-11-2023 Urine Microalbumin/Creatin ine Ratio 8.8 mg/g CRE <30 [facility] Thin prep Papanicolaou smear with manual screeningOrdered By: Dr. Jung on 02-11-2023 Thin prep Papanicolaou smear with manual screening 5.5 mg/L NO RANGE EST. [facility] Urine creatinine measurement (mass/volume)Ordered By: Dr. Jung on 02-11-2023 Creatinine (U) [Mass/Vol] 62.00 mg/dL NO RANGE EST. [facility] Absolute lymphocyte countOrd ered By: Dr. Jung on 02-05-2023 Lymphocytes Auto (Unsp spec) [#/Vol] 1.70 10*3/uL 0.83-4.51 [facility] Basophil percentageOrdered B y: Dr. Jung on 02-05-2023 Basophils/100 WBC (Bld) 0.6 % 0-1 [facility] Chloride [Moles/Vol] 104 mmol/L 98-107 [facility] Eosinophils/100 WBC (Bld) 1.3 % 0-5 [facility] Glucose [Mass/Vol] 92 mg/dL 74-106 [facility] Neutrophils (Bld) [#/Vol] 6.2 10*3/uL 2.0-7.7 [facility] Neutrophils/100 WBC (Bld) 70.5 % 47-70 [facility] Potassium [Moles/Vol] 4.1 mmol/L 3.5-5.1 [facility] Sodium [Moles/Vol] 139 mmol/L 136-145 [facility] WBC (Bld) [#/Vol] 8.8 10*3/uL 4.4-11.0 [facility] Blood erythrocytes count (nu mber/volume)Ordered By: Dr. Jung on 02-05-2023 RBC (Bld) [#/Vol] 4.30 10*6/uL 4.2-5.4 [facility] Blood hemoglobin measurement (mass/volume)Ordered By: Dr. Jung on 02-05-2023 Hemoglobin (Bld) [Mass/Vol] 12.2 g/dL 12.0-15.0 [facility] Blood lymphocytes/100 leukoc ytesOrdered By: Dr. Jung on 02-05-2023 Lymphocytes/100 WBC (Bld) 19.4 % 19-41 [facility] Blood monocytes/100 leukocyt esOrdered By: Dr. Jung on 02-05-2023 Monocytes/100 WBC (Bld) 8.0 % 0-10 [facility] Blood platelet mean volumeOr dered By: Dr. Jung on 02-05-2023 Platelet mean volume (Bld) [Entitic vol] 11.4 fL 6.2-12.0 [facility] Determination of erythrocyte mean corpuscular volume (MCV)Ordered By: Dr. Jung on 02-05-2023 MCV (RBC) [Entitic vol] 88.6 fL 81-99 [facility] Hematocrit Auto (Bld) [Volum e fraction]Ordered By: Dr. Jung on 02-05-2023 Hematocrit (Bld) [Volume fraction] 38.1 % 37-47 [facility] - Chemistry and C hemistry - challengeOrdered By: Dr. Jung on 02-05-2023 CO2 [Moles/Vol] 30.0 mmol/L 21.0-32.0 [facility] Urea nitrogen/Creatinine [Mass ratio] 27.5 mg/mg 10-20 [facility] - Hematology and Cell countsOrdered By: Dr. Jung on 02-05-2023 Erythrocyte distribution width (RBC) [Entitic vol] 50.8 fL 35.1-43.9 [facility] Erythrocyte distribution width (RBC) [Ratio] 15.7 % 11.6-14.6 [facility] Immature granulocytes/100 WBC (Bld) 0.200 % 0.0-0.9 [facility] Comment on above: IG% - Immature Granu locytes (promyelocytes, myelocytes and metamyelocytes) > 1% indicates that a LEFT SHIFT is Present. MCH (RBC) [Entitic mass] 28.4 pg 27.0-32.0 [facility] Nucleated RBC/100 WBC (Bld) [Ratio] 0 % 0-5 [facility] MCHC Auto (RBC) [Mass/Vol]Or dered By: Dr. Jung on 02-05-2023 MCHC (RBC) [Mass/Vol] 32.0 g/dL 32-36 [facility] No Panel InformationOrdered By: Dr. Jung on 02-05-2023 Estimated GFR (MDRD) Amer 121 mL/min >60 [facility] Comment on above: GFR Calc Estimated GFR (MDRD) Non-Af Amer 100 mL/min >60 [facility] Comment on above: Non- GFR Calc Platelets bldOrdered By: Dr. Jung on 02-05-2023 Platelets (Bld) [#/Vol] 327 10*3/uL 150-450 [facility] Serum or plasma calcium donny urement (mass/volume)Ordered By: Dr. Jung on 02-05-2023 Calcium [Mass/Vol] 9.3 mg/dL 8.5-10.1 [facility] Serum or plasma creatinine m easurement (mass/volume)Ordered By: Dr. Jung on 02-05-2023 Creatinine [Mass/Vol] 0.62 mg/dL 0.55-1.02 [facility] Comment on above: The validity of the calculated GFR & GFRAA in patients over 70 years has not been determined. Clinical correlation is essential. Serum or plasma urea nitroge n measurement (mass/volume)Ordered By: Dr. Jung on 02-05-2023 Urea nitrogen [Mass/Vol] 17 mg/dL 7-18 [facility] Thin prep Papanicolaou smear with manual screeningOrdered By: Dr. Jung on 02-05-2023 Thin prep Papanicolaou smear with manual screening 5 5-15 [facility] Basophil percentageOrdered B y: Dr. Jung on 01-16-2023 Chloride [Moles/Vol] 103 mmol/L 98-107 [facility] Glucose [Mass/Vol] 120 mg/dL 74-106 [facility] Comment on above: Fasting Glucose resu lt from 100 to 125 mg/dL suggests IMPAIRED HOMEOSTASIS per A.D.A. criteria. Potassium [Moles/Vol] 4.1 mmol/L 3.5-5.1 [facility] Sodium [Moles/Vol] 137 mmol/L 136-145 [facility] - Chemistry and C hemistry - challengeOrdered By: Dr. Jung on 01-16-2023 CO2 [Moles/Vol] 28.0 mmol/L 21.0-32.0 [facility] Urea nitrogen/Creatinine [Mass ratio] 25.6 mg/mg 10-20 [facility] No Panel InformationOrdered By: Dr. Jung on 01-16-2023 Estimated GFR (MDRD) Amer 87 mL/min >60 [facility] Comment on above: GFR Calc Estimated GFR (MDRD) Non-Af Amer 72 mL/min >60 [facility] Comment on above: Non- GFR Calc Serum or plasma calcium donny urement (mass/volume)Ordered By: Dr. Jung on 01-16-2023 Calcium [Mass/Vol] 9.7 mg/dL 8.5-10.1 [facility] Serum or plasma creatinine m easurement (mass/volume)Ordered By: Dr. Jung on 01-16-2023 Creatinine [Mass/Vol] 0.82 mg/dL 0.55-1.02 [facility] Comment on above: The validity of the calculated GFR & GFRAA in patients over 70 years has not been determined. Clinical correlation is essential. Serum or plasma urea nitroge n measurement (mass/volume)Ordered By: Dr. Jung on 01-16-2023 Urea nitrogen [Mass/Vol] 21 mg/dL 7-18 [facility] Thin prep Papanicolaou smear with manual screeningOrdered By: Dr. Jung on 01-16-2023 Thin prep Papanicolaou smear with manual screening 6 5-15 [facility] Absolute lymphocyte countOrd ered By: Dr. Jung on 01-07-2023 Lymphocytes Auto (Unsp spec) [#/Vol] 2.07 10*3/uL 0.83-4.51 [facility] Basophil percentageOrdered B y: Dr. Jung on 01-07-2023 Basophils/100 WBC (Bld) 0.5 % 0-1 [facility] Bilirubin [Mass/Vol] 0.40 mg/dL 0.20-1.00 [facility] Comment on above: For patients on eltr ombopag therapy, use of Dimension [place] TBIL is not recommended. Chloride [Moles/Vol] 101 mmol/L 98-107 [facility] Eosinophils/100 WBC (Bld) 1.2 % 0-5 [facility] Glucose [Mass/Vol] 126 mg/dL 74-106 [facility] Comment on above: Fasting Glucose resu lt greater than or equal to 126 mg/dL suggests DIABETES MELLITUS per A.D.A. criteria. Neutrophils (Bld) [#/Vol] 7.7 10*3/uL 2.0-7.7 [facility] Neutrophils/100 WBC (Bld) 70.3 % 47-70 [facility] Potassium [Moles/Vol] 3.0 mmol/L 3.5-5.1 [facility] Protein [Mass/Vol] 8.0 g/dL 6.4-8.2 [facility] Sodium [Moles/Vol] 136 mmol/L 136-145 [facility] WBC (Bld) [#/Vol] 10.9 10*3/uL 4.4-11.0 [facility] Blood erythrocytes count (nu mber/volume)Ordered By: Dr. Jung on 01-07-2023 RBC (Bld) [#/Vol] 5.00 10*6/uL 4.2-5.4 [facility] Blood hemoglobin measurement (mass/volume)Ordered By: Dr. Jung on 01-07-2023 Hemoglobin (Bld) [Mass/Vol] 13.8 g/dL 12.0-15.0 [facility] Blood lymphocytes/100 leukoc ytesOrdered By: Dr. Jung on 01-07-2023 Lymphocytes/100 WBC (Bld) 18.9 % 19-41 [facility] Blood monocytes/100 leukocyt esOrdered By: Dr. Jung on 01-07-2023 Monocytes/100 WBC (Bld) 8.6 % 0-10 [facility] Blood platelet mean volumeOr dered By: Dr. Jung on 01-07-2023 Platelet mean volume (Bld) [Entitic vol] 11.5 fL 6.2-12.0 [facility] Determination of erythrocyte mean corpuscular volume (MCV)Ordered By: Dr. Jung on 01-07-2023 MCV (RBC) [Entitic vol] 88.8 fL 81-99 [facility] Hematocrit Auto (Bld) [Volum e fraction]Ordered By: Dr. Jung on 01-07-2023 Hematocrit (Bld) [Volume fraction] 44.4 % 37-47 [facility] - Chemistry and C hemistry - challengeOrdered By: Dr. Jung on 01-07-2023 ALP [Catalytic activity/Vol] 103 U/L 45-117 [facility] ALT [Catalytic activity/Vol] 29 U/L 13-56 [facility] CO2 [Moles/Vol] 28.0 mmol/L 21.0-32.0 [facility] Globulin (S) [Mass/Vol] 4.5 g/dL 2.2-4.2 [facility] Urea nitrogen/Creatinine [Mass ratio] 19.3 mg/mg 10-20 [facility] - Hematology and Cell countsOrdered By: Dr. Jung on 01-07-2023 Erythrocyte distribution width (RBC) [Entitic vol] 47.5 fL 35.1-43.9 [facility] Erythrocyte distribution width (RBC) [Ratio] 14.7 % 11.6-14.6 [facility] Immature granulocytes/100 WBC (Bld) 0.500 % 0.0-0.9 [facility] Comment on above: IG% - Immature Granu locytes (promyelocytes, myelocytes and metamyelocytes) > 1% indicates that a LEFT SHIFT is Present. MCH (RBC) [Entitic mass] 27.6 pg 27.0-32.0 [facility] Nucleated RBC/100 WBC (Bld) [Ratio] 0 % 0-5 [facility] Auto (RBC) [Mass/Vol]Or dered By: Dr. Jung on 01-07-2023 MCHC (RBC) [Mass/Vol] 31.1 g/dL 32-36 [facility] No Panel InformationOrdered By: Dr. Jung on 01-07-2023 Estimated GFR (MDRD) Amer 92 mL/min >60 [facility] Comment on above: GFR Calc Estimated GFR (MDRD) Non-Af Amer 76 mL/min >60 [facility] Comment on above: Non- GFR Calc Thyroid Stimulating Hormone (TSH) 1.68 uIU/mL 0.358-3.74 [facility] Vitamin D 25-Hydroxy 42.8 ng/mL [facility] Comment on above: Vitamin D 25(OH) Sta tus Range Deficiency <20 ng/mL (50nmol/L) Insufficiency 20 - 30 ng/mL (50 - 75 nmol/L) Sufficiency 30 - 100 ng/mL (75 - 250 nmol/L) Toxicity >100 ng/mL (>250 nmol/L) Platelets bldOrdered By: Dr. Jung on 01-07-2023 Platelets (Bld) [#/Vol] 384 10*3/uL 150-450 [facility] Serum or plasma albumin donny urement (mass/volume)Ordered By: Dr. Jung on 01-07-2023 Albumin [Mass/Vol] 3.5 g/dL 3.2-5.0 [facility] Serum or plasma albumin/glob ulin mass ratioOrdered By: Dr. Jung on 01-07-2023 Albumin/Globulin [Mass ratio] 0.8 {ratio} 0.9-2.4 [facility] Serum or plasma calcium dnony urement (mass/volume)Ordered By: Dr. Jung on 01-07-2023 Calcium [Mass/Vol] 9.8 mg/dL 8.5-10.1 [facility] Serum or plasma creatinine m easurement (mass/volume)Ordered By: Dr. Jung on 01-07-2023 Creatinine [Mass/Vol] 0.78 mg/dL 0.55-1.02 [facility] Comment on above: The validity of the calculated GFR & GFRAA in patients over 70 years has not been determined. Clinical correlation is essential. Serum or plasma urea nitroge n measurement (mass/volume)Ordered By: Dr. Jung on 01-07-2023 Urea nitrogen [Mass/Vol] 15 mg/dL 7-18 [facility] Thin prep Papanicolaou smear with manual screeningOrdered By: Dr. Jung on 01-07-2023 Thin prep Papanicolaou smear with manual screening 26 U/L 15-37 [facility] Thin prep Papanicolaou smear with manual screening 7 5-15 [facility] Absolute lymphocyte countOrd ered By: Dr. Jung on 10-15-2022 Lymphocytes Auto (Unsp spec) [#/Vol] 1.66 10*3/uL 0.83-4.51 [facility] Basophil percentageOrdered B y: Dr. Jung on 10-15-2022 Basophils/100 WBC (Bld) 0.5 % 0-1 [facility] Bilirubin [Mass/Vol] 0.40 mg/dL 0.20-1.00 [facility] Comment on above: For patients on eltr ombopag therapy, use of Dimension [place] TBIL is not recommended. Chloride [Moles/Vol] 103 mmol/L 98-107 [facility] Eosinophils/100 WBC (Bld) 2.6 % 0-5 [facility] Glucose [Mass/Vol] 97 mg/dL 74-106 [facility] Neutrophils (Bld) [#/Vol] 5.6 10*3/uL 2.0-7.7 [facility] Neutrophils/100 WBC (Bld) 69.1 % 47-70 [facility] Potassium [Moles/Vol] 4.9 mmol/L 3.5-5.1 [facility] Comment on above: Slight Hemolysis, Re sult may be falsely increased. Protein [Mass/Vol] 7.1 g/dL 6.4-8.2 [facility] Sodium [Moles/Vol] 138 mmol/L 136-145 [facility] WBC (Bld) [#/Vol] 8.2 10*3/uL 4.4-11.0 [facility] Blood erythrocytes count (nu mber/volume)Ordered By: Dr. Jung on 01-18-2023 RBC (Bld) [#/Vol] 4.60 10*6/uL 4.2-5.4 [facility] Blood hemoglobin measurement (mass/volume)Ordered By: Dr. Jung on 10-15-2022 Hemoglobin (Bld) [Mass/Vol] 12.6 g/dL 12.0-15.0 [facility] Blood lymphocytes/100 leukoc ytesOrdered By: Dr. Jung on 10-15-2022 Lymphocytes/100 WBC (Bld) 20.4 % 19-41 [facility] Blood monocytes/100 leukocyt esOrdered By: Dr. Jung on 10-15-2022 Monocytes/100 WBC (Bld) 7.2 % 0-10 [facility] Blood platelet mean volumeOr dered By: Dr. Jung on 10-15-2022 Platelet mean volume (Bld) [Entitic vol] 11.5 fL 6.2-12.0 [facility] Determination of erythrocyte mean corpuscular volume (MCV)Ordered By: Dr. Jung on 10-15-2022 MCV (RBC) [Entitic vol] 89.1 fL 81-99 [facility] Hematocrit Auto (Bld) [Volum e fraction]Ordered By: Dr. Jung on 10-15-2022 Hematocrit (Bld) [Volume fraction] 41.0 % 37-47 [facility] Laboratory - Chemistry and C hemistry - challengeOrdered By: Dr. Jung on 10-15-2022 ALP [Catalytic activity/Vol] 82 U/L 45-117 [facility] ALT [Catalytic activity/Vol] 24 U/L 13-56 [facility] CO2 [Moles/Vol] 28.0 mmol/L 21.0-32.0 [facility] Globulin (S) [Mass/Vol] 3.7 g/dL 2.2-4.2 [facility] Urea nitrogen/Creatinine [Mass ratio] 17.6 mg/mg 10-20 [facility] Laboratory - Hematology and Cell countsOrdered By: Dr. Jung on 10-15-2022 Erythrocyte distribution width (RBC) [Entitic vol] 49.6 fL 35.1-43.9 [facility] Erythrocyte distribution width (RBC) [Ratio] 15.1 % 11.6-14.6 [facility] Immature granulocytes/100 WBC (Bld) 0.200 % 0.0-0.9 [facility] Comment on above: IG% - Immature Granu locytes (promyelocytes, myelocytes and metamyelocytes) > 1% indicates that a LEFT SHIFT is Present. MCH (RBC) [Entitic mass] 27.4 pg 27.0-32.0 [facility] Nucleated RBC/100 WBC (Bld) [Ratio] 0 % 0-5 [facility] MCHC Auto (RBC) [Mass/Vol]Or dered By: Dr. Jung on 10-15-2022 MCHC (RBC) [Mass/Vol] 30.7 g/dL 32-36 [facility] No Panel InformationOrdered By: Dr. Jung on 10-15-2022 Estimated GFR (MDRD) Amer 119 mL/min >60 [facility] Comment on above: GFR Calc Estimated GFR (MDRD) Non-Af Amer 99 mL/min >60 [facility] Comment on above: Non- GFR Calc Thyroid Stimulating Hormone (TSH) 1.94 uIU/mL 0.358-3.74 [facility] Vitamin D 25-Hydroxy 38.2 ng/mL [facility] Comment on above: Vitamin D 25(OH) Sta tus Range Deficiency <20 ng/mL (50nmol/L) Insufficiency 20 - 30 ng/mL (50 - 75 nmol/L) Sufficiency 30 - 100 ng/mL (75 - 250 nmol/L) Toxicity >100 ng/mL (>250 nmol/L) Platelets bldOrdered By: Dr. Jung on 10-15-2022 Platelets (Bld) [#/Vol] 313 10*3/uL 150-450 [facility] Serum or plasma albumin donny urement (mass/volume)Ordered By: Dr. Jung on 10-15-2022 Albumin [Mass/Vol] 3.4 g/dL 3.2-5.0 [facility] Serum or plasma albumin/glob ulin mass ratioOrdered By: Dr. Jung on 10-15-2022 Albumin/Globulin [Mass ratio] 0.9 {ratio} 0.9-2.4 [facility] Serum or plasma calcium donny urement (mass/volume)Ordered By: Dr. Jung on 10-15-2022 Calcium [Mass/Vol] 9.4 mg/dL 8.5-10.1 [facility] Serum or plasma creatinine m easurement (mass/volume)Ordered By: Dr. Jung on 10-15-2022 Creatinine [Mass/Vol] 0.62 mg/dL 0.55-1.02 [facility] Comment on above: The validity of the calculated GFR & GFRAA in patients over 70 years has not been determined. Clinical correlation is essential. Serum or plasma urea nitroge n measurement (mass/volume)Ordered By: Dr. Jung on 10-15-2022 Urea nitrogen [Mass/Vol] 11 mg/dL 04-14 [facility] Thin prep Papanicolaou smear with manual screeningOrdered By: Dr. Jung on 10-15-2022 Thin prep Papanicolaou smear with manual screening 22 U/L 15- [facility] Comment on above: Slight Hemolysis, Re sult may be falsely increased. Thin prep Papanicolaou smear with manual screening 7 - [facility] Absolute lymphocyte countOrd ered By: Dr. Jung on 07-17-2022 Lymphocytes Auto (Unsp spec) [#/Vol] 1.82 10*3/uL 0.83-4.51 [facility] Basophil percentageOrdered B y: Dr. Jung on 07-17-2022 Basophils/100 WBC (Bld) 0.5 % 0-1 [facility] Bilirubin [Mass/Vol] 0.30 mg/dL 0.20-1.00 [facility] Comment on above: For patients on eltr ombopag therapy, use of Dimension [place] TBIL is not recommended. Chloride [Moles/Vol] 102 mmol/L 98-107 [facility] Eosinophils/100 WBC (Bld) 1.3 % 0-5 [facility] Glucose [Mass/Vol] 118 mg/dL 74-106 [facility] Comment on above: Fasting Glucose resu lt from 100 to 125 mg/dL suggests IMPAIRED HOMEOSTASIS per A.D.A. criteria. Neutrophils (Bld) [#/Vol] 6.6 10*3/uL 2.0-7.7 [facility] Neutrophils/100 WBC (Bld) 70.0 % 47-70 [facility] Potassium [Moles/Vol] 4.2 mmol/L 3.5-5.1 [facility] Comment on above: Slight Hemolysis, Re sult may be falsely increased. Protein [Mass/Vol] 7.3 g/dL 6.4-8.2 [facility] Sodium [Moles/Vol] 137 mmol/L 136-145 [facility] WBC (Bld) [#/Vol] 9.4 10*3/uL 4.4-11.0 [facility] Blood erythrocytes count (nu mber/volume)Ordered By: Dr. Jung on 07-17-2022 RBC (Bld) [#/Vol] 4.43 10*6/uL 4.2-5.4 [facility] Blood hemoglobin measurement (mass/volume)Ordered By: Dr. Jung on 07-17-2022 Hemoglobin (Bld) [Mass/Vol] 12.5 g/dL 12.0-15.0 [facility] Blood lymphocytes/100 leukoc ytesOrdered By: Dr. Jung on 07-17-2022 Lymphocytes/100 WBC (Bld) 19.3 % 19-41 [facility] Blood monocytes/100 leukocyt esOrdered By: Dr. Jung on 07-17-2022 Monocytes/100 WBC (Bld) 8.4 % 0-10 [facility] Blood platelet mean volumeOr dered By: Dr. Jung on 07-17-2022 Platelet mean volume (Bld) [Entitic vol] 11.0 fL 6.2-12.0 [facility] Determination of erythrocyte mean corpuscular volume (MCV)Ordered By: Dr. Jung on 07-17-2022 MCV (RBC) [Entitic vol] 90.3 fL 81-99 [facility] Hematocrit Auto (Bld) [Volum e fraction]Ordered By: Dr. Jung on 07-17-2022 Hematocrit (Bld) [Volume fraction] 40.0 % 37-47 [facility] Laboratory - Chemistry and C hemistry - challengeOrdered By: Dr. Jung on 07-17-2022 ALP [Catalytic activity/Vol] 89 U/L 45-117 [facility] ALT [Catalytic activity/Vol] 31 U/L 13-56 [facility] CO2 [Moles/Vol] 26.0 mmol/L 21.0-32.0 [facility] Globulin (S) [Mass/Vol] 3.9 g/dL 2.2-4.2 [facility] Urea nitrogen/Creatinine [Mass ratio] 16.9 mg/mg 10- [facility] Laboratory - Hematology and Cell countsOrdered By: Dr. Jung on 07-17-2022 Erythrocyte distribution width (RBC) [Entitic vol] 47.6 fL 35.1-43.9 [facility] Erythrocyte distribution width (RBC) [Ratio] 14.5 % 11.6-14.6 [facility] Immature granulocytes/100 WBC (Bld) 0.500 % 0.0-0.9 [facility] Comment on above: IG% - Immature Granu locytes (promyelocytes, myelocytes and metamyelocytes) > 1% indicates that a LEFT SHIFT is Present. MCH (RBC) [Entitic mass] 28.2 pg 27.0-32.0 [facility] Nucleated RBC/100 WBC (Bld) [Ratio] 0 % 0-5 [facility] MCHC Auto (RBC) [Mass/Vol]Or dered By: Dr. Jung on 07-17-2022 MCHC (RBC) [Mass/Vol] 31.3 g/dL 32-36 [facility] No Panel InformationOrdered By: Dr. Jung on 07-17-2022 Estimated GFR (MDRD) Amer 94 mL/min >60 [facility] Comment on above: GFR Calc Estimated GFR (MDRD) Non-Af Amer 77 mL/min >60 [facility] Comment on above: Non- GFR Calc Thyroid Stimulating Hormone (TSH) 1.58 uIU/mL 0.358-3.74 [facility] Vitamin D 25-Hydroxy 42.1 ng/mL [facility] Comment on above: Vitamin D 25(OH) Sta tus Range Deficiency <20 ng/mL (50nmol/L) Insufficiency 20 - 30 ng/mL (50 - 75 nmol/L) Sufficiency 30 - 100 ng/mL (75 - 250 nmol/L) Toxicity >100 ng/mL (>250 nmol/L) Platelets bldOrdered By: Dr. Jung on 07-17-2022 Platelets (Bld) [#/Vol] 358 10*3/uL 150-450 [facility] Serum or plasma albumin donny urement (mass/volume)Ordered By: Dr. Jung on 07-17-2022 Albumin [Mass/Vol] 3.4 g/dL 3.2-5.0 [facility] Serum or plasma albumin/glob ulin mass ratioOrdered By: Dr. Jung on 07-17-2022 Albumin/Globulin [Mass ratio] 0.9 {ratio} 0.9-2.4 [facility] Serum or plasma calcium donny urement (mass/volume)Ordered By: Dr. Jung on 07-17-2022 Calcium [Mass/Vol] 9.3 mg/dL 8.5-10.1 [facility] Serum or plasma creatinine m easurement (mass/volume)Ordered By: Dr. Jung on 07-17-2022 Creatinine [Mass/Vol] 0.77 mg/dL 0.55-1.02 [facility] Comment on above: The validity of the calculated GFR & GFRAA in patients over 70 years has not been determined. Clinical correlation is essential. Serum or plasma urea nitroge n measurement (mass/volume)Ordered By: Dr. Jung on 07-17-2022 Urea nitrogen [Mass/Vol] 13 mg/dL 04-14 [facility] Thin prep Papanicolaou smear with manual screeningOrdered By: Dr. Jung on 07-17-2022 Thin prep Papanicolaou smear with manual screening 25 U/L 15-37 [facility] Comment on above: Slight Hemolysis, Re sult may be falsely increased. Thin prep Papanicolaou smear with manual screening 9 5-15 [facility] Absolute lymphocyte counton 04-14-2022 Lymphocytes Auto (Unsp spec) [#/Vol] 2.54 10*3/uL 0.83-4.51 [facility] Work Phone: Basophil percentageon 2021 Basophils/100 WBC (Bld) 0.6 % 0-1 [facility] Work Phone: Bilirubin [Mass/Vol] 0.30 mg/dL 0.20-1.00 [facility] Work Phone: Comment on above: For patients on eltr ombopag therapy, use of Dimension [place] TBIL is not recommended. Chloride [Moles/Vol] 102 mmol/L 98-107 [facility] Work Phone: [phone] Eosinophils/100 WBC (Bld) 1.8 % 0-5 [facility] Work Phone: [phone] Glucose [Mass/Vol] 108 mg/dL 74-106 [facility] Work Phone: [phone] Comment on above: Fasting Glucose resu lt from 100 to 125 mg/dL suggests IMPAIRED HOMEOSTASIS per A.D.A. criteria. Neutrophils (Bld) [#/Vol] 9.2 10*3/uL 2.0-7.7 [facility] Work Phone: [phone] Neutrophils/100 WBC (Bld) 70.6 % 47-70 [facility] Work Phone: [phone] Potassium [Moles/Vol] 4.3 mmol/L 3.5-5.1 [facility] Work Phone: [phone] Comment on above: Slight Hemolysis, Re sult may be falsely increased. Protein [Mass/Vol] 7.4 g/dL 6.4-8.2 [facility] Work Phone: [phone] Sodium [Moles/Vol] 140 mmol/L 136-145 [facility] Work Phone: [phone] WBC (Bld) [#/Vol] 13.0 10*3/uL 4.4-11.0 [facility] Work Phone: Blood erythrocytes count (nu mber/volume)on 04-14-2022 RBC (Bld) [#/Vol] 4.63 10*6/uL 4.2-5.4 [facility] Work Phone: Blood hemoglobin measurement (mass/volume)on 04-14-2022 Hemoglobin (Bld) [Mass/Vol] 13.6 g/dL 12.0-15.0 [facility] Work Phone: Blood lymphocytes/100 leukoc yteson 07-18-2022 Lymphocytes/100 WBC (Bld) 19.5 % 19-41 [facility] Work Phone: Blood monocytes/100 leukocyt eson 04-14-2022 Monocytes/100 WBC (Bld) 7.0 % 0-10 [facility] Work Phone: Blood platelet mean volumeon 04-14-2022 Platelet mean volume (Bld) [Entitic vol] 11.4 fL 6.2-12.0 [facility] Work Phone: Determination of erythrocyte mean corpuscular volume (MCV)on 04-14-2022 MCV (RBC) [Entitic vol] 93.3 fL 81-99 [facility] Work Phone: Hematocrit Auto (Bld) [Volum e fraction]on 04-14-2022 Hematocrit (Bld) [Volume fraction] 43.2 % 37-47 [facility] Work Phone: Laboratory - Chemistry and C hemistry - challengeon 04-14-2022 ALP [Catalytic activity/Vol] 96 U/L 45-117 [facility] Work Phone: ALT [Catalytic activity/Vol] 43 U/L 13-56 [facility] Work Phone: CO2 [Moles/Vol] 30.0 mmol/L 21.0-32.0 [facility] Work Phone: Globulin (S) [Mass/Vol] 4.0 g/dL 2.2-4.2 [facility] Work Phone: Urea nitrogen/Creatinine [Mass ratio] 21.0 mg/mg 10-20 [facility] Work Phone: Laboratory - Hematology and Cell countson 04-14-2022 Erythrocyte distribution width (RBC) [Entitic vol] 49.9 fL 35.1-43.9 [facility] Work Phone: Erythrocyte distribution width (RBC) [Ratio] 14.6 % 11.6-14.6 [facility] Work Phone: Immature granulocytes/100 WBC (Bld) 0.500 % 0.0-0.9 [facility] Work Phone: Comment on above: IG% - Immature Granu locytes (promyelocytes, myelocytes and metamyelocytes) > 1% indicates that a LEFT SHIFT is Present. MCH (RBC) [Entitic mass] 29.4 pg 27.0-32.0 [facility] Work Phone: Nucleated RBC/100 WBC (Bld) [Ratio] 0 % 0-5 [facility] Work Phone: MCHC Auto (RBC) [Mass/Vol]on 04-14-2022 MCHC (RBC) [Mass/Vol] 31.5 g/dL 32-36 [facility] Work Phone: No Panel Informationon 04-14 Estimated GFR (MDRD) Amer 88 mL/min >60 [facility] Work Phone: Comment on above: GFR Calc Estimated GFR (MDRD) Non-Af Amer 73 mL/min >60 [facility] Work Phone: Comment on above: Non- GFR Calc Thyroid Stimulating Hormone (TSH) 1.59 uIU/mL 0.358-3.74 [facility] Work Phone: Vitamin D 25-Hydroxy 37.4 ng/mL [facility] Work Phone: Comment on above: Vitamin D 25(OH) Sta tus Range Deficiency <20 ng/mL (50nmol/L) Insufficiency 20 - 30 ng/mL (50 - 75 nmol/L) Sufficiency 30 - 100 ng/mL (75 - 250 nmol/L) Toxicity >100 ng/mL (>250 nmol/L) Platelets bldon 04-14-2022 Platelets (Bld) [#/Vol] 362 10*3/uL 150-450 [facility] Work Phone: Serum or plasma albumin donny urement (mass/volume)on 04-14-2022 Albumin [Mass/Vol] 3.4 g/dL 3.2-5.0 [facility] Work Phone: Serum or plasma albumin/glob ulin mass ratioon 04-14-2022 Albumin/Globulin [Mass ratio] 0.8 {ratio} 0.9-2.4 [facility] Work Phone: Serum or plasma calcium donny urement (mass/volume)on 04-14-2022 Calcium [Mass/Vol] 9.7 mg/dL 8.5-10.1 [facility] Work Phone: Serum or plasma creatinine m easurement (mass/volume)on 04-14-2022 Creatinine [Mass/Vol] 0.81 mg/dL 0.55-1.02 [facility] Work Phone: Comment on above: The validity of the calculated GFR & GFRAA in patients over 70 years has not been determined. Clinical correlation is essential. Serum or plasma urea nitroge n measurement (mass/volume)on 04-14-2022 Urea nitrogen [Mass/Vol] 17 mg/dL 7-18 [facility] Work Phone: Thin prep Papanicolaou smear with manual screeningon 04-14-2022 Thin prep Papanicolaou smear with manual screening 33 U/L 15-37 [facility] Work Phone: Comment on above: Slight Hemolysis, Re sult may be falsely increased. Thin prep Papanicolaou smear with manual screening 8 5-15 [facility] Work Phone: No Panel Informationon 01-07 Influenza Types A,B Direct FA (MARCO) [facility] Work Phone: Absolute lymphocyte counton 01-02-2022 Lymphocytes Auto (Unsp spec) [#/Vol] 2.45 10*3/uL 0.83-4.51 [facility] Work Phone: Basophil percentageon 2021 Basophils/100 WBC (Bld) 0.5 % 0-1 [facility] Work Phone: Bilirubin [Mass/Vol] 0.50 mg/dL 0.20-1.00 [facility] Work Phone: Comment on above: For patients on eltr ombopag therapy, use of Dimension [place] TBIL is not recommended. Chloride [Moles/Vol] 103 mmol/L 98-107 [facility] Work Phone: Eosinophils/100 WBC (Bld) 1.6 % 0-5 [facility] Work Phone: Glucose [Mass/Vol] 96 mg/dL 74-106 [facility] Work Phone: Neutrophils (Bld) [#/Vol] 8.0 10*3/uL 2.0-7.7 [facility] Work Phone: Neutrophils/100 WBC (Bld) 69.2 % 47-70 [facility] Work Phone: Potassium [Moles/Vol] 4.7 mmol/L 3.5-5.1 [facility] Work Phone: Comment on above: Moderate Hemolysis, Result may be falsely increased. Protein [Mass/Vol] 7.7 g/dL 6.4-8.2 [facility] Work Phone: Sodium [Moles/Vol] 135 mmol/L 136-145 [facility] Work Phone: WBC (Bld) [#/Vol] 11.5 10*3/uL 4.4-11.0 [facility] Work Phone: Blood erythrocytes count (nu mber/volume)on 01-02-2022 RBC (Bld) [#/Vol] 4.57 10*6/uL 4.2-5.4 [facility] Work Phone: Blood hemoglobin measurement (mass/volume)on 01-02-2022 Hemoglobin (Bld) [Mass/Vol] 13.4 g/dL 12.0-15.0 [facility] Work Phone: Blood lymphocytes/100 leukoc yteson 01-02-2022 Lymphocytes/100 WBC (Bld) 21.3 % 19-41 [facility] Work Phone: Blood monocytes/100 leukocyt eson 01-02-2022 Monocytes/100 WBC (Bld) 6.9 % 0-10 [facility] Work Phone: [phone] Blood platelet mean volumeon 01-02-2022 Platelet mean volume (Bld) [Entitic vol] 11.3 fL 6.2-12.0 [facility] Work Phone: Determination of erythrocyte mean corpuscular volume (MCV)on 01-02-2022 MCV (RBC) [Entitic vol] 91.0 fL 81-99 [facility] Work Phone: [phone] Hematocrit Auto (Bld) [Volum e fraction]on 01-02-2022 Hematocrit (Bld) [Volume fraction] 41.6 % 37-47 [facility] Work Phone: [phone] Laboratory - Chemistry and C hemistry - challengeon 01-02-2022 ALP [Catalytic activity/Vol] 82 U/L 45-117 [facility] Work Phone: [phone] ALT [Catalytic activity/Vol] 29 U/L 13-56 [facility] Work Phone: CO2 [Moles/Vol] 26.0 mmol/L 21.0-32.0 [facility] Work Phone: [phone] Globulin (S) [Mass/Vol] 3.9 g/dL 2.2-4.2 [facility] Work Phone: [phone] Urea nitrogen/Creatinine [Mass ratio] 20.7 mg/mg 10-20 [facility] Work Phone: [phone] Laboratory - Hematology and Cell countson 01-02-2022 Erythrocyte distribution width (RBC) [Entitic vol] 46.8 fL 35.1-43.9 [facility] Work Phone: [phone] Erythrocyte distribution width (RBC) [Ratio] 13.9 % 11.6-14.6 [facility] Work Phone: [phone] Immature granulocytes/100 WBC (Bld) 0.500 % 0.0-0.9 [facility] Work Phone: [phone] Comment on above: IG% - Immature Granu locytes (promyelocytes, myelocytes and metamyelocytes) > 1% indicates that a LEFT SHIFT is Present. MCH (RBC) [Entitic mass] 29.3 pg 27.0-32.0 [facility] Work Phone: Nucleated RBC/100 WBC (Bld) [Ratio] 0 % 0-5 [facility] Work Phone: MCHC Auto (RBC) [Mass/Vol]on 01-02-2022 MCHC (RBC) [Mass/Vol] 32.2 g/dL 32-36 [facility] Work Phone: No Panel Informationon 01-02 Estimated GFR (MDRD) Amer 119 mL/min >60 [facility] Work Phone: Comment on above: GFR Calc Estimated GFR (MDRD) Non-Af Amer 98 mL/min >60 [facility] Work Phone: Comment on above: Non- GFR Calc Thyroid Stimulating Hormone (TSH) 1.56 uIU/mL 0.358-3.74 [facility] Work Phone: Vitamin D 25-Hydroxy 41.2 ng/mL [facility] Work Phone: Comment on above: Vitamin D 25(OH) Sta tus Range Deficiency <20 ng/mL (50nmol/L) Insufficiency 20 - 30 ng/mL (50 - 75 nmol/L) Sufficiency 30 - 100 ng/mL (75 - 250 nmol/L) Toxicity >100 ng/mL (>250 nmol/L) Platelets bldon 01-02-2022 Platelets (Bld) [#/Vol] 319 10*3/uL 150-450 [facility] Work Phone: Serum or plasma albumin donny urement (mass/volume)on 01-02-2022 Albumin [Mass/Vol] 3.8 g/dL 3.2-5.0 [facility] Work Phone: Serum or plasma albumin/glob ulin mass ratioon 01-02-2022 Albumin/Globulin [Mass ratio] 1.0 {ratio} 0.9-2.4 [facility] Work Phone: Serum or plasma calcium donny urement (mass/volume)on 01-02-2022 Calcium [Mass/Vol] 9.2 mg/dL 8.5-10.1 [facility] Work Phone: Serum or plasma creatinine m easurement (mass/volume)on 01-02-2022 Creatinine [Mass/Vol] 0.63 mg/dL 0.55-1.02 [facility] Work Phone: Comment on above: The validity of the calculated GFR & GFRAA in patients over 70 years has not been determined. Clinical correlation is essential. Serum or plasma urea nitroge n measurement (mass/volume)on 01-02-2022 Urea nitrogen [Mass/Vol] 13 mg/dL 7-18 [facility] Work Phone: Thin prep Papanicolaou smear with manual screeningon 01-02-2022 Thin prep Papanicolaou smear with manual screening 22 U/L 15-37 [facility] Work Phone: Comment on above: Moderate Hemolysis, Result may be falsely increased. Thin prep Papanicolaou smear with manual screening 6 5-15 [facility] Work Phone: CNOVon 08-27-2017 CNOV Office Visit (GEETAS) -ITZ [place]AS ([id number]) 1945 [facility] Time Provider Xiyacikmtl73/30/17 3:00 PM CAMILA STERLING During your visit today, we recorded the following information about you:Camila Sterling MD 08/30/2017 11:58 AM Maru Vegas, a patient of Dr. Gillespie, presented to ED [facility] with abdominal pain.Found to have acute cholecystitis [...] Status ChangeDate Reviewed: 08/27/2017Reviewed by: Emanuel Jha IDENTITY ACCESS MANAGEMENT ARCHITECT - Fully AssessedPrimary Visit Diagnosis:Surgery follow-up examination [...] Status:Closed by MD CAMILA STERLING on 08/30/17 [facility] PROGRESSon 08-27-2017 PROGRESS HNO ID: [id number] thor: Camila Glez: (none)Author Type: PhysicianType: Progress NotesFiled: 08/30/2017 11:58 AMNote Text:Itz Vegas, a patient of Dr. Gillespie, presented to ED [facility] with abdominalpain.Found to have acute cholecystitis and [...] her primary physician for medical care. Normal [facility] No Panel Information Influenza Types A,B Direct FA (MARCO) [facility] Work Phone: Vital Signs Date Time Vital Sign Value Performing Clinician Krys lawrence 12-28-2024 10:34-0400 Body height 157.5 cm Rere Duncan MD Work Phone: [facility] 12-28-2024 10:34-0400 Body mass index (BMI) [Ratio] 32.37 kg/m2 Rere Duncan MD Work Phone: [facility] 12-28-2024 10:34-0400 Body weight 80.29 kg Rere Duncan MD Work Phone: [facility] 12-28-2024 10:34-0400 Diastolic blood pressure 61 mm[Hg] Rere Duncan MD Work Phone: [facility] 12-28-2024 10:34-0400 Heart rate 58 /min Rere Duncan MD Work Phone: [facility] 12-28-2024 10:34-0400 SaO2% (BldA) [Mass fraction] 96 % Rere Duncan MD Work Phone: [facility] 12-28-2024 10:34-0400 Systolic blood pressure 152 mm[Hg] Rere Duncan MD Work Phone: [facility] 03-12-2023 11:08-0400 Diastolic blood pressure 87 mm[Hg] Dr. Jaya Jung Work Phone: [facility] 03-12-2023 11:08-0400 Systolic blood pressure 127 mm[Hg] Dr. Jaya Jung Work Phone: [facility] 03-12-2023 10:25-0400 Body height 160.[address] Jaya Jung Work Phone: [facility] 03-12-2023 10:25-0400 Body mass index (BMI) [Ratio] 34.7 kg/m2 Dr. Jaya Jung Work Phone: [facility] 03-12-2023 10:25-0400 Body temperature 97.6 [degF] Dr. Jaya Jung Work Phone: [facility] 03-12-2023 10:25-0400 Body weight 89.[address] Jaya Jung Work Phone: [facility] 03-12-2023 10:25-0400 Heart rate 60 /min Dr. Jaya Jung Work Phone: [facility] 03-12-2023 10:25-0400 Respiratory rate 16 /min Dr. Jaya Jung Work Phone: [facility] 03-12-2023 10:25-0400 SaO2% (BldA) [Mass fraction] 96 % Dr. Jaya Jung Work Phone: [facility] 11-14-2022 15:09-0500 Body height 160.[address] Jaya Jung Work Phone: [facility] 11-14-2022 15:09-0500 Body mass index (BMI) [Ratio] 34.5 kg/m2 Dr. Jaya Jung Work Phone: [facility] 11-14-2022 15:09-0500 Body temperature 98 [degF] Dr. Jaya Jung Work Phone: [facility] 11-14-2022 15:09-0500 Body weight 88.[address] Jaya Jung Work Phone: [facility] 11-14-2022 15:09-0500 Diastolic blood pressure 80 mm[Hg] Dr. Jaya Jung Work Phone: [facility] 11-14-2022 15:09-0500 Heart rate 56 /min Dr. Jaya Jung Work Phone: [facility] 11-14-2022 15:09-0500 Respiratory rate 18 /min Dr. Jaya Jung Work Phone: [facility] 11-14-2022 15:09-0500 SaO2% (BldA) [Mass fraction] 93 % Dr. Jaya Jung Work Phone: [facility] 11-14-2022 15:09-0500 Systolic blood pressure 132 mm[Hg] Dr. Jaya Jung Work Phone: [facility] 11-06-2022 11:42-0500 Body mass index (BMI) [Ratio] 33.8 kg/m2 Dr. Jaya Jung Work Phone: [facility] 11-06-2022 11:42-0500 Body weight 86.[address] Jaya Jung Work Phone: [facility] 11-06-2022 11:42-0500 Diastolic blood pressure 53 mm[Hg] Dr. Jaya Jung Work Phone: [facility] 11-06-2022 11:42-0500 Heart rate 54 /min Dr. Jaya Jung Work Phone: [facility] 11-06-2022 11:42-0500 Respiratory rate 16 /min Dr. Jaya Jung Work Phone: [facility] 11-06-2022 11:42-0500 SaO2% (BldA) [Mass fraction] 94 % Dr. Jaya Jung Work Phone: [facility] 11-06-2022 11:42-0500 Systolic blood pressure 107 mm[Hg] Dr. Jaya Jung Work Phone: [facility] 05-13-2022 15:51-0400 Body height 160.[address] Jaya Jung Work Phone: [facility] Work Phone: 05-13-2022 15:51-0400 Body mass index (BMI) [Ratio] 35 kg/m2 Dr. Jaya Jung Work Phone: [facility] Work Phone: 05-13-2022 15:51-0400 Body weight 89.[address] Jaya Jung Work Phone: [facility] Work Phone: 05-13-2022 15:51-0400 Diastolic blood pressure 73 mm[Hg] Dr. Jaya Jung Work Phone: [facility] Work Phone: 05-13-2022 15:51-0400 Heart rate 66 /min Dr. Jaya Jung Work Phone: [facility] Work Phone: 05-13-2022 15:51-0400 Respiratory rate 16 /min Dr. Jaya Jung Work Phone: [facility] Work Phone: 05-13-2022 15:51-0400 SaO2% (BldA) [Mass fraction] 97 % Dr. Jaya Jung Work Phone: [facility] Work Phone: 05-13-2022 15:51-0400 Systolic blood pressure 144 mm[Hg] Dr. Jaya Jung Work Phone: [facility] Work Phone: 02-03-2022 12:52-0400 Body height 160.[address] Jaya Jung Work Phone: [facility] Work Phone: 02-03-2022 12:52-0400 Body mass index (BMI) [Ratio] 33.5 kg/m2 Dr. Jaya Jung Work Phone: [facility] Work Phone: 02-03-2022 12:52-0400 Body weight 85.[address] Jaya Jung Work Phone: [facility] Work Phone: 02-03-2022 12:52-0400 Diastolic blood pressure 84 mm[Hg] Dr. Jaya Jung Work Phone: [facility] Work Phone: 02-03-2022 12:52-0400 Heart rate 54 /min Dr. Jaya Jung Work Phone: [facility] Work Phone: 02-03-2022 12:52-0400 Respiratory rate 18 /min Dr. Jaya Jung Work Phone: [facility] Work Phone: 02-03-2022 12:52-0400 SaO2% (BldA) [Mass fraction] 94 % Dr. Jaya Jung Work Phone: [facility] Work Phone: 02-03-2022 12:52-0400 Systolic blood pressure 144 mm[Hg] Dr. Jaya Jung Work Phone: [facility] Work Phone: 02-03-2022 12:52-0400 Body height 160.[address] Jaya Jung Work Phone: [facility] Work Phone: 02-03-2022 12:52-0400 Body mass index (BMI) [Ratio] 33.5 kg/m2 Dr. Jaya Jung Work Phone: [facility] Work Phone: 02-03-2022 12:52-0400 Body weight 85.[address] Jaya Jung Work Phone: [facility] Work Phone: 02-03-2022 12:52-0400 Diastolic blood pressure 84 mm[Hg] Dr. Jaya Jung Work Phone: [facility] Work Phone: 02-03-2022 12:52-0400 Heart rate 54 /min Dr. Jaya Jung Work Phone: [facility] Work Phone: 02-03-2022 12:52-0400 Respiratory rate 18 /min Dr. Jaya Jung Work Phone: [facility] Work Phone: 02-03-2022 12:52-0400 SaO2% (BldA) [Mass fraction] 94 % Dr. Jaya Jung Work Phone: [facility] Work Phone: 02-03-2022 12:52-0400 Systolic blood pressure 144 mm[Hg] Dr. Jaya Jung Work Phone: [facility] Work Phone: 03-17-2022 16:07-0400 Diastolic blood pressure 77 mm[Hg] Dr. Jaya Jung Work Phone: [facility] Work Phone: 12-12-2021 16:07-0400 Systolic blood pressure 160 mm[Hg] Dr. Jaya Jung Work Phone: [facility] Work Phone: 12-12-2021 15:48-0400 Body height 160.[address] Jaya Jung Work Phone: [facility] Work Phone: 12-12-2021 15:48-0400 Body mass index (BMI) [Ratio] 33.8 kg/m2 Dr. Jaya Jung Work Phone: [facility] Work Phone: 12-12-2021 15:48-0400 Body temperature 98.1 [degF] Dr. Jaya Jung Work Phone: [facility] Work Phone: 12-12-2021 15:48-0400 Body weight 86.[address] Jaya Jung Work Phone: [facility] Work Phone: 12-12-2021 15:48-0400 Heart rate 52 /min Dr. Jaya Jung Work Phone: [facility] Work Phone: 12-12-2021 15:48-0400 Respiratory rate 20 /min Dr. Jaya Jung Work Phone: [facility] Work Phone: 12-12-2021 15:48-0400 SaO2% (BldA) [Mass fraction] 94 % Dr. Jaya Jung Work Phone: [facility] Work Phone: 09-13-2021 07:28-0500 Body mass index (BMI) [Ratio] 34.9 kg/m2 Dr. Jaya Jung Work Phone: [facility] Work Phone: 09-13-2021 07:28-0500 Body weight 89.[address] Jaya Jung Work Phone: [facility] Work Phone: 09-13-2021 07:28-0500 Diastolic blood pressure 81 mm[Hg] Dr. Jaya Jung Work Phone: [facility] Work Phone: 09-13-2021 07:28-0500 Heart rate 56 /min Dr. Jaya Jung Work Phone: [facility] Work Phone: 09-13-2021 07:28-0500 Respiratory rate 16 /min Dr. Jaya Jung Work Phone: [facility] Work Phone: 09-13-2021 07:28-0500 SaO2% (BldA) [Mass fraction] 94 % Dr. Jaya Jung Work Phone: [facility] Work Phone: 09-13-2021 07:28-0500 Systolic blood pressure 181 mm[Hg] Dr. Jaya Jung Work Phone: [facility] Work Phone: Encounters Encounter Date Encounter Type Care Provider Facility Start: 04-17-2025 ambulatory Jens Christine Facility:[facility] Start: 04-17-2025 End: 04-17-2025 ambulatory Jaya Chi Erich Facility:[facility] Start: 04-14-2025 End: 04-14-2025 ambulatory Jaya Chi Erich Facility:[facility] Start: 03-13-2025 End: 03-13-2025 ambulatory Cabrera Hale NP Facility:[facility] Start: 03-11-2025 End: 03-11-2025 Emergency department patient visit Deon Bearden Facility:[facility] Start: 03-01-2025 End: 03-01-2025 ambulatory Moe Mccarthy Facility:[facility] Start: 01-13-2025 End: 01-13-2025 ambulatory Jaya Chi Erich Facility:[facility] Start: 01-11-2025 End: 01-11-2025 ambulatory Jaya Chi Erich Facility:[facility] Start: 12-28-2024 End: 12-28-2024 Office outpatient new 45 minutes Rere Duncan MD Work Phone: [facility] [place] Comment on above: Atrial flutter, unsp ecified type (HCC) (Primary Dx); Persistent atrial fibrillation (HCC); At risk for stroke; Anticoagulant long-term use Start: 12-28-2024 End: 12-28-2024 ambulatory JAYA CHI ERICH Facility:[facility] Start: 12-05-2024 End: 12-05-2024 ambulatory Jaya Chi Erich Facility:[facility] Start: 11-24-2024 End: 11-24-2024 ambulatory Jaya Chi Erich Facility:[facility] Start: 10-30-2024 End: 10-30-2024 [facility] Start: 10-20-2024 End: 10-20-2024 ambulatory Jose Webster NP [facility] Start: 10-20-2024 End: 10-20-2024 ambulatory Jaya Chi Erich Facility:[facility] Start: 10-11-2024 ambulatory Denver Moustapha Facility:[facility] Start: 10-11-2024 End: 10-11-2024 ambulatory Denver Moustapha Facility:[facility] Start: 09-15-2024 End: 09-15-2024 ambulatory Jaya Chi Erich Facility:[facility] Start: 09-14-2024 End: 09-14-2024 ambulatory Moe Mccarthy Facility:[facility] Start: 09-07-2024 End: 09-07-[address] BONNIE JUNG MD Facility:[facility] Start: 09-01-2024 End: 09-05-2024 ambulatory BENNY SMITH MD Facility:[facility] Start: 09-01-2024 End: 09-05-2024 Outreach Lab BENNY SMITH MD [facility] Start: 08-31-2024 End: 09-04-[address] BONNIE JUNG MD Facility:[facility] Start: 08-31-2024 End: 09-04-2024 Outreach Lab BENNY SMITH MD [facility] Start: 08-19-2024 ambulatory Cabrera Hale [employer] Facili ty:[facility] Start: 08-19-2024 End: 08-19-2024 ambulatory Cabrera Hale [employer] Facility:[facility] Start: 08-16-2024 ambulatory Cabrera Hale [employer] Facili ty:[facility] Start: 08-15-2024 ambulatory Denver Moustapha Facility:[facility] Start: 08-15-2024 End: 08-15-2024 ambulatory Cabrera Hale [employer] Facility:[facility] Start: 08-02-2024 End: 08-02-2024 ambulatory Cabrera Hale [employer] [facility] Start: 07-12-2024 End: 07-12-2024 ambulatory Karl Villar Facility:[facility] Start: 06-15-2024 End: 06-15-2024 ambulatory Moe Mccarthy Facility:[facility] Start: 05-23-2024 End: 05-23-2024 ambulatory Jaya Jung Facility:[facility] Start: 09-02-2023 End: 09-03-2023 ambulatory BENNY SMITH MD Facility:[facility] Start: 03-12-2023 End: 03-12-2023 Emergency department patient visit Dr. Jaya Jung Work Phone: [facility]-Emergency Department Start: 03-05-2023 End: 03-05-[address] Jaya Jung Work Phone: [facility]-Laboratory Start: 02-11-2023 End: 02-11-[address] [facility] Start: 02-05-2023 End: 02-05-[address] Jaya Jung Work Phone: [facility] Work Phone: Start: 02-05-2023 End: 02-05-[address] Jaya Jung Work Phone: [facility]-Laboratory, Phy Office 3rd Flr Start: 01-16-2023 End: 01-16-[address] Jaya Jung Work Phone: [facility] Work Phone: Start: 01-16-2023 End: 01-16-[address] Jaya Jung Work Phone: [facility]-Laboratory, y Office 3rd Flr Start: 01-07-2023 End: 01-07-[address] Jaya Jung Work Phone: [facility]Labor[facility], y Office 3rd Flr Start: 01-05-2023 Non-patient / Non-visit Dr. Milan Jung Work Phone: [facility] Start: 01-01-2023 Non-patient / Non-visit Dr. Milan Jung Work Phone: [facility] Start: 01-01-2023 End: 01-01-[address] Jaya Jung Work Phone: [facility] Work Phone: Start: 01-01-2023 End: 01-01-[address] Jaya Jung Work Phone: [facility]-Pulmonary Services/Neurology Start: 11-14-2022 End: 11-14-[address] Jaya Jung Work Phone: [facility] Start: 11-06-2022 End: 11-06-[address] Jaya Jung Work Phone: [facility] Work Phone: Start: 11-06-2022 End: 11-06-[address] Jaya Jung Work Phone: [facility], [facility] Start: 11-06-2022 End: 11-06-[address] Jaya Jung Work Phone: [facility] Start: 10-15-2022 End: 10-15-2022 ambulatory [facility] Work Phone: Start: 10-15-2022 End: 10-15-2022 Patient encounter procedure [facility], [facility] 3rd Flr Start: 07-17-2022 End: 07-17-[address] Jaya uJng Work Phone: [facility] Work Phone: Start: 07-17-2022 End: 07-17-[address] Jaya Jung Work Phone: [facility], [facility] Office 3rd Flr Start: 05-26-2022 End: 05-26-[address] Jaya Jung Work Phone: [facility] Work Phone: Start: 05-26-2022 End: 05-26-[address] Jaya Jung Work Phone: [facility]-Physical Therapy Start: 05-21-2022 End: 05-21-2022 Patient encounter procedure BENNY SMITH MD [facility] Start: 05-13-2022 End: 05-13-[address] Jaya Jung Work Phone: [facility] Start: 04-16-[address] Jaya dooley Work Phone: [facility]-Physical Therapy Start: 04-14-2022 End: 04-14-[address] Jaya Jung Work Phone: [facility] 3rd Flr Start: 02-05-2022 End: 02-05-[address] Jaya Jung Work Phone: [facility]-Outpatient Breast Imaging Start: 02-03-2022 End: 02-03-[address] Jaya Jung Work Phone: [facility] Start: 01-31-2022 Non-patient / Non-visit Dr. Milan Jung Work Phone: [facility] Start: 01-07-2022 End: 01-07-[address] Jaya Jung Work Phone: [facility]-Pulmonary Services/Neurology Start: 01-06-2022 End: 01-06-[address] Jaya Jung Work Phone: [facility]-Radiology, [facility] Start: 01-02-2022 End: 01-02-[address] Jaya Jung Work Phone: [facility]-Laboratory, Phy Office 3rd Flr Start: 12-24-2021 End: 12-24-[address] [facility] Start: 12-12-2021 End: 12-12-[address] Jaya Jung Work Phone: [facility] Start: 09-30-2021 Non-patient / Non-visit Dr. Milan Jung Work Phone: [facility] Start: 09-30-2021 End: 09-30-[address] Jaya Jung Work Phone: [facility]-Cardiovascul ar Services Start: 09-13-2021 End: 09-13-[address] Jaya Jung Work Phone: [facility]-Physical Therapy Start: 09-13-2021 End: 09-13-[address] Jaya Jung Work Phone: [facility] Start: 08-27-2017 End: 08-31-2017 [facility] Procedures Date Procedure Procedure Detail Performing Clinician Start: 12-28-2024 Ecg routine ecg w/le ast 12 lds w/i&r Rere A Schweikert MD Work Phone: Start: 03-12-2023 CT of head without contrast Dr. Jaya Jung Work Phone: Start: 11-06-2022 Plain chest X-ray Dr. Tone Jung Work Phone: Start: 02-05-2022 Screening mammography D benjy Jung Work Phone: Start: 01-07-2022 Influenza Types A,B Direct FA (MARCO) Dr. Jaya Jung Work Phone: Start: 01-07-2022 End: 01-07-2022 Respiratory syncytial virus antigen assay Dr. Jaya Jung Work Phone: Start: 01-06-2022 Plain chest X-ray Dr. Tone Jung Work Phone: Start: 09-30-2021 Nuclear Stress Test - Chemical Dr. Jaya Jung Work Phone: Start: 08-31-2020 Transurethral bladde r excision BENNY SMITH MD Start: 09-28-2015 Gallbladder structur e (body structure) BENNY SMITH MD Start: 09-28-2013 Cystoscopy BENNY DUNNE MD Start: 09-28-1997 Hysterectomy BENNY DUNNE MD Influenza Types A,B Direct FA (MARCO) Dr. Jaya Jung Work Phone: Respiratory syncytia l virus antigen assay Dr. Jaya Jung Work Phone: Plan of Treatment Date Care Activity Detail Author Start: 12-20-2025 Urine microalbumin profile DTaP,Tdap,Td Vaccine (2 - Td or Tdap) [facility] Start: 09-28-2024 Advance Directive Discussion Advance Directive Discussion [facility] Start: 05-29-2024 Covid-19 Vaccine ( season) Covid-19 Vaccine () [facility] Start: 2011 Screening for osteoporosis Bone Density Screening [facility] Start: 1996 Pneumococcal Vaccine: 50+ (1 of 1 - PCV) Pneumococcal Vaccine: 50+ (1 of 1 - PCV) [facility] Start: 1991 Diabetes Screening Diabetes Screening [facility] Start: 1964 Annual PCP Team Chronic Disease Visit Annual PCP Team Chronic Disease Visit [facility] Start: 1964 Anxiety Screening Anxiety Screening [facility] Start: 1964 BP Controlled (<130/80) BP Controlled (<130/80) [facility] Start: 1964 Depression Screening Depression Screening [facility] Start: 1964 Hepatitis C screening Hepatitis C Screening [facility] Measurement of respiratory function [facility] Patient Education [facility] Work Phone: Patient referral [facility] Work Phone: [facility] Immunizations Immunization Date Immunization Notes Care Provider Jeyson harper 07-12-2024 influenza, seasonal, injectable Rere Duncan MD Work Phone: [facility] 08-04-2023 respiratory syncytia l virus (RSV) vaccine, adjuvanted (AREXVY) Rere Duncan MD Work Phone: [facility] 07-02-2023 influenza, injectabl e, quadrivalent, contains preservative Rere Duncan MD Work Phone: [facility] 12-27-2021 COVID-19 original vaccine, full dose, monovalent (MODERNA) Rere Duncan MD Work Phone: [facility] 08-16-2020 zoster vaccine recombinant Rere Duncan MD Work Phone: [facility] 07-03-2020 influenza, injectabl e, quadrivalent, contains preservative Rere Duncan MD Work Phone: [facility] 10-20-2019 zoster vaccine recombinant Rere Duncan MD Work Phone: [facility] 06-14-2019 influenza, injectabl e, quadrivalent, contains preservative Rere Duncan MD Work Phone: [facility] 06-28-[address] Jaya Jung Work Phone: [facility] 06-18-2017 influenza, injectabl e, quadrivalent, contains preservative Rere Duncan MD Work Phone: [facility] 06-17-[address] Jaya Jung Work Phone: [facility] 06-10-2016 influenza, seasonal, injectable Rere Duncan MD Work Phone: [facility] 12-21-2015 tetanus toxoid, reduced diphtheria toxoid, and acellular pertussis vaccine, adsorbed Rere Duncan MD Work Phone: [facility] 09-16-2010 zoster vaccine, live Rere Duncan MD Work Phone: [facility] 09-11-2009 novel [id number], preservative-free, injectable Rere Duncan MD Work Phone: [facility] Payers Date Payer Category Payer Self-pay [id number] 2016 [facility] DICARE SUPPLEMENT [id number] 2016 Unknown [id number] 2011 Medicare [id number] 2011 Medicare MEDICARE [id number] 2011 Medicare [id number] 1945 Unknown [id number] 2.16.840.1.225213.3.579. 2.627 1945 Unknown [id number] 2.16.840.1.271290.3.579. 2.627 1945 Unknown [id number] 2.16.840.1.855846.3.579. 2.627 1945 Unknown [id number] 2.16.840.1.344485.3.579. 2.627 Unknown [id number] 2.16.840.1.891817.3.579. 2.462 Unknown [id number] 2.16.840.1.498318.3.579. 2.462 Unknown [id number] 2.16.840.1.486286.3.579. 2.462 Unknown [id number] 2.16.840.1.570578.3.579. 2.462 Unknown [id number] 2.16.840.1.106514.3.579. 2.462 Unknown [id number] 2.16.840.1.120067.3.579. 2.462 Unknown [id number] 2.16.840.1.466898.3.579. 2.462 Unknown [id number] 2.16.840.1.831812.3.579. 2.462 Unknown [id number] 2.16840.1.504636.3.579. 2.462 Unknown [id number] 2.840.1.620922.3.579. 2.462 Unknown [id number] 2.840.1.892571.3.579. 2.462 Unknown [id number] 2.840.1.519264.3.579. 2.462 Unknown [id number] 2.840.1.195993.3.579. 2.462 Unknown [id number] 2.840.1.723568.3.579. 2.462 Unknown [id number] 2.840.1.977961.3.579. 2.462 Unknown [id number] 2.840.1.246552.3.579. 2.462 Unknown [id number] 2.840.1.631154.3.579. 2.462 Unknown [id number] 2.840.1.998752.3.579. 2.462 Unknown [id number] 2.840.1.427842.3.579. 2.462 Unknown [id number] 2.840.1.141655.3.579. 2.462 Unknown [id number] 2.840.1.914835.3.579. 2.462 Unknown [id number] 2.840.1.019990.3.579. 2.462 Unknown [id number] 2.840.1.281309.3.579. 2.462 Unknown [id number] 2.840.1.462500.3.579. 2.462 Unknown [id number] 2.840.1.309978.3.579. 2.462 Unknown [id number] 2.840.1.304414.3.579. 2.462 Unknown [id number] 2.840.1.700554.3.579. 2.462 Unknown [id number] 2.16.840.1.970699.3.579. 2.462 Unknown [id number] 2.16.840.1.683893.3.579. 2.462 Social History Date Type Detail Facility Start: 12-12-2021 End: 03-12-2023 Tobacco smoking status TNIS Unknown if ever smoked [facility] Start: 08-16-2018 None [facility] Start: 1945 Sex Assigned At Female A [facility] Start: 08-30-2020 End: 12-28-2024 Tobacco smoking status Never smoked tobacco (finding) [facility] History of tobacco use Passive smoker [facility] Start: 12-28-2024 Tobacco use and exposure Smokeless tobacco non-user [facility] Start: 12-28-2024 Alcoholic beverage intake Current non-drinker of alcohol (finding) [facility] Start: 12-28-2024 History of Social function [facility] Start: 12-28-2024 Tobacco use panel [facility] National Score (1-10 0), lower number is lower risk 66 [facility] Start: 1945 Sex assigned at Not on file C [facility] Goals Date Patient Goal Desired Activity /State Personal health goal Clinical Notes 08-11-2017 to 12-28-2024 Rere Duncan MD - 12/28/2024 10:20 AM EDT Note Date & Type Note Facility 12-28-2024 History of Present illness Narrative PRIMARY CARE PHYSICIAN: Jaya Jung MD [address] [place] [address] REFERRING PHYSICIAN: Rosalind Moses ([facility]) [address] [facility] [address] Patient Care Team: Jaya Jung Chi as PCP - General (Gerontology) Rosalind Moses PA-C as Physician Aircraft Engine Assembler (Cardiology) Jonathan Gerard MD as Specialty Ornamental Brick Installer (Cardiology) CHIEF COMPLAINT: Evaluation of arrhythmia HISTORY OF PRESENT ILLNESS: Ms. Vegas is a 79 year old female who presents today for evaluation of atrial fibrillation, referred by [facility]. The patient is a 79-year-old [...] reduction in stress levels since moving to [facility], where she feels happier and more independent. [...] daily (150 mg + 75 mg), and lkag-ppk-lmsssom vitamin D3 with vitamin K. I have [...] Sinus bradycardia 58 bpm; first-degree AV block (RI 212 ms); normal QRS duration 78 ms; [...] 4 - Moderate documented in this encounter [facility] 12-28-2024 Note HNO ID: [id number] Author: RERE DUNCAN MD Service: ? Author Type: Physician Type: Progress Notes Filed: 12/28/2024 21:26 Note Text: PRIMARY CARE PHYSICIAN: Jaya Jung MD [address] [address] REFERRING PHYSICIAN: Rosalind Moses ([facility]) [address] [facility] [address] Patient Care Team: Jaya Jung Chi as PCP - General (Gerontology) Rosalind Moses PA-C as Physician Aircraft Engine Assembler (Cardiology) Jonathan Gerard MD as Specialty Ornamental Brick Installer (Cardiology) CHIEF COMPLAINT: Evaluation of arrhythmia HISTORY OF PRESENT ILLNESS: Ms. Vegas is a 79 year old female who presents today for evaluation of atrial fibrillation, referred by [facility]. The patient is a 79-year-old [...] reduction in stress levels since moving to [facility], where she feels happier and more independent. [...] daily (150 mg + 75 mg), and amqa-juq-khhwtbo vitamin D3 with vitamin K. I have [...] Smoking (more content not included)... [facility] 01-01-2023 Procedure note [facility] 08-06-2021 Evaluation note Diagnosis Onset Date Atrial flutter with rapid ventricular response August 06, 2021 acute Essential hypertension chron ic HLD (hyperlipidemia) chronic Bradycardia acute Essential hypertension [facility] Work Phone: 1(385) 120-819411-09-2021 Evaluation note* Diagnosis Onset Date Resolution Status Ankle edema acute Atrial flutter with rapid ventricular response Novembe r 2020 acute Essential hypertension [facility] Work Phone: 1(743) 568-626111-09-2021 Evaluation note* Diagnosis Onset Date Resolution Status Atrial flutter with rapid ventricular response Novembe r 2020 acute Bradycardia acute care home current use of amiodarone acute Essential hypertension chron ic HLD (hyperlipidemia) chronic Acute bronchitis acute [facility] Work Phone: 1(107) 249-992211-14-2017 Evaluation note* Diagnosis Onset Date Resolution Status Bradycardia acute Essential hypertension chron ic Bradycardia acute Postoperative atrial fibrillation August 11, 2017 acute Essential hypertension chron ic HLD (hyperlipidemia) chronic [facility] Work Phone: 1(534) 149-206111-14-2017 Evaluation note* Diagnosis Onset Date Resolution Status Bradycardia acute Postoperative atrial fibrillation August 11, 2017 acute Essential hypertension chron ic HLD (hyperlipidemia) chronic [facility] Work Phone: 1(188) 595-872411-14-2017 Evaluation note* Diagnosis Onset Date Resolution Status Bradycardia acute Postoperative atrial fibrillation August 11, 2017 acute Essential hypertension chron ic HLD (hyperlipidemia) chronic Ankle edema acute Atrial flutter with rapid ventricular response Novembe r 2020 acute Essential hypertension [facility] Work Phone: Discharge summary Author Dr. Rogers [facility] March 12, 2023 12:06pm Note Date/Time March 12, 2023 10:4 0am [facility] Medical Records Department [address] [place] [address] Emergency Department Summary 03/12/23 MR#: [id number] Acct: [id number] Name: ITZ VEGAS Rep #:[id number] : 1945 77 From: Neville Rogers MD [...] Prior similar symptoms: No Recent Illness/Hospitalization: [facility] Medical History Acute pyelonephritis Atrial fibrillation with [...] clonus or Babinski sign noted. The metria. [place] Coma Scale: document GCS findings Spontaneous Obeys [...] your Primary Care Provider. Call [facility] ([phone]) or report to the closest Emergency Room. Call 911 if necessary. 03/12/23 1206 <Electronically signed by eNville Rogers MD> Cosigner Signature (if applicable): CC: Dr. Jaya Jung MD ~ Signed [facility] Work Phone: Evaluation + Plan note No data available for this section [facility] Evaluation + Plan note Future Appointments Appointment Date:09/07/2024 10:00:00 AM Scheduled Provider:BENNY SMITH MD Location:UROLOGY Appointment Type:URO Off Proc [facility] Evaluation note* Diagnosis Onset Date Resolution Status Bradycardia acute Essential hypertension chron ic [facility] Work Phone: Evaluation noteNo assessment information available [facility] Work Phone: Evaluation note* Diagnosis Onset Date Resolution Status Acute bronchitis acute [facility] Work Phone: Evaluation note* Diagnosis Atrial flutter, unspecified type (HCC)- Primary Persistent atrial fibrillation (HCC) Atrial fibrillation At risk for stroke Other specified personal history presenting hazards to health Anticoagulant long-term use Long-term (current) use of anticoagulants documented in this encounter [facility] No data available for this section [facility] Discharge instructions Additional Instructions 1. Hold your Eliquis for 2 days, 4 doses 2. If you develop a severe headache, nausea vomiting or any concerns return to the [facility] Work Phone: Progress note No data available for this section [facility] Summary Purpose Family History No [...] Will Yes August 22, 9:11am Power of Education Counselor Yes August 22, 2019 9:11am Advance Directive Response Recorded Date/ Time Living Will Yes August 22, 8:11am Power of Education Counselor Yes August 22, 2019 8:11am Advance Directive Response Recorded Date/ Time Name of Medical Power of Education Counselor cabrera RONQUILLOAlvarez clifton March 12, 2023 10:28am Living Will Yes March 12, 2023 10:28am Power of Education Counselor Yes March 12 10:28am Chief Complaint and [...] Atrial flutter with rapid ventricular response Bradycardia termination clerk current use of amiodarone Essential hypertension HLD (hyperlipidemia) Acute bronchitis Chief Complaint 6 M FU COUGH, HEADACHE AIRCRAFT STRUCTURE MECHANIC DRUG THERAPY RESIDENTIAL DRUG THERAPY Amb Documentation Reason for Visit Atrial flutter with rapid ventricular response Bradycardia termination clerk current use of amiodarone Essential hypertension HLD (hyperlipidemia) Acute bronchitis Chief Complaint COUGH, HEADACHE RESIDENTIAL DRUG THERAPY RESIDENTIAL DRUG THERAPY Amb Documentation fall, hematoma Reason for Visit Acute bronchitis Additional Source Comments INFORMATION SOURCE (unrecogn ized section and content) DATE CREATED AUTHOR 03/23/2018 [facility] DATE CREATED AUTHOR AUTHOR'S ORGANIZ ATION 09/13/2023 [facility] ([place]) DATE CREATED AUTHOR AUTHOR'S ORGANIZ ATION 10/06/2024 [facility] DATE CREATED AUTHOR AUTHOR'S ORGANIZ ATION 10/14/2024 [facility] DATE CREATED AUTHOR AUTHOR'S ORGANIZ ATION 12/31/2024 [facility] DATE CREATED AUTHOR AUTHOR'S ORGANIZ ATION 04/17/2025 [facility] Goals (unrecognized section and content) Goals [...] Role: Primary Care Physician Address: Address: [facility]/[address] [place] [address]- Care Team Related Persons Name: CABRERA HAMMOND [...] Care Provider, Referring Provider Active Cabrera Hale DRAFTER STRUCTURAL, DRAFTER STRUCTURAL-C Attending Provider Active Team Status: Inactive Member Role Status Dates Dr. Jaya Jung MD Primary Care Provider, Referring Provider Active Dragan Bird PA, PA Attending Provider Active Team Status: Inactive Member Role Status Dates Dr. Jaya Jung MD Primary Care Provider Active Cabrera Hale NP, DRAFTER STRUCTURAL-C Attending Provider Active Team Status: Active Member Role Status Dates Dr. Jaya Jung MD Primary Care Provider Active Cabrera Hale DRAFTER STRUCTURAL, DRAFTER STRUCTURAL-C Referring Provider, Other Provi more Active Dr. Jens Christine DO Attending Provider Active Team Status: Active Member Role Status Dates Dr. Jaya Jung MD Primary Care Provider Active Jose Webster DRAFTER STRUCTURAL, DRAFTER STRUCTURAL-C Attending Provider Active Team Status: Inactive Member Role Status Dates Dr. Jaya Jung MD Primary Care Provider Active Cabrera Hale DRAFTER STRUCTURAL, DRAFTER STRUCTURAL-C Attending Provider, Referring P nohemy Active Team [...] Dr. Neville Rogers MD Emergency Provider Active Ruching Machine Operator Relationship Specialty Start Date End Date Jaya Jung Chi [address] [place], [place] [id number] PCP - General Gerontology 12/04/24 Rosalind Moses PA-C [address] [place], [place] [id number] Physician Aircraft Engine Assembler Cardiology 12/04/24 Jonathan Gerard MD [address] [place] [address] Specialty Ornamental Brick Installer Cardiology 12/28/24 Source Comments (unrecognize d section and content) In the event this informatio n is protected by the Federal Confidentiality of Alcohol and Drug Abuse Patient Records regulations: The Federal rules restrict any use of the information to criminally investigate or prosecute any alcohol or drug abuse patient.[facility] Reason for Visit (unrecogniz ed section and content) Reason Comments New Patient Ref from [facility] for atr ial sera FOR RECORDS PERTAINING TO PATIENTS WHO ARE [...] BE BASED ON THE PRIMARY CLINICAL RECORDS. [facility] [employer] [facility]. provides no warranty or guarantee of the accuracy or completeness of information in this document.
== END 2025-04-17 13:38 | disposition home or self-care (01) ==
PROVIDERS: PCP Family Medicine Geriatric Medicine; Referring Provider Internal Medicine Cardiovascular Disease; Visit Provider Internal Medicine Cardiovascular Disease
DX: I48.92 Unspecified atrial flutter (principal); I48.91 Unspecified atrial fibrillation; E11.9 Type 2 diabetes mellitus without complications; E78.5 Hyperlipidemia, unspecified; I10 Essential (primary) hypertension; Z79.01 Long term (current) use of anticoagulants; Z79.899 Other long term (current) drug therapy; Z79.51 Long term (current) use of inhaled steroids; Z82.49 Family history of ischemic heart disease and other diseases of the circulatory system
CPT/HCPCS: 80048; 92960; 93005

== ENCOUNTER → 2025-05-25 | Outpatient (CLI) | payer MEDICARE, BC, SELFPAY ==
--- OUTSIDE RECORDS SUMMARY | 2025-05-25 17:46 | XMS RPT_ITS | CCD ---
Author Organization [facility] CliniSyor Care Team Providers Care Tester Vibrator Equipment Name Role Phone CAMILA STERLING Unavailable Unavailable Erich, Dr. Jaya Childress Primary Care Provider Erich, Dr. Jaya Childress Referring Provider 1([facility])[phone] Jonathan Gerard Attending Provider 1([facility])[phone] Geoffrey NETWORK INTERNSHIP, NETWORK INTERNSHIP-C Cabrera Attending Provider Erich, Dr. Jaya Childress Primary Care Provider 1([facility])[phone] Dr. Jonathan Gerard Attending Provider 1([facility])[phone] Erich, Dr. Jaya Childress Referring Provider 1([facility])[phone] Erich, Dr. Jaya Childress Primary Care Provider 1([facility])[phone] Erich, Dr. Jaya Childress Primary Care Provider 1([facility])[phone] Geoffrey ALLEN, TIFFANY-C Cabrera Attending Provider Erich, Dr. Jaya Childress Referring Provider 1([facility])[phone] BONNIE TRINH Primary Care Physician Dr. Jonathan Gerard Attending Provider 1([facility])-[phone] Erich, Dr. Jaya Childress Primary Care Provider Erich, Dr. Jaya Childress Referring Provider Erich, Dr. Jaya Childress Primary Care Provider 1([facility])[phone] Erich, Dr. Jaya Childress Referring Provider 1([facility])[phone] Geoffrey NETWORK INTERNSHIP, TIFFANY-C Cabrera Attending Provider RAFAEL Richmond Attending Provider 1([facility])[phone] Erich, Dr. Jaya Childress Primary Care Provider 1([facility])[phone] Erich, Dr. Jaya Childress Referring Provider 1([facility])[phone] Geoffrey NETWORK INTERNSHIP, NETWORK INTERNSHIPMatthieu Austin Attending Provider RAFAEL Richmond Attending Provider Geoffrey NETWORK INTERNSHIP, NETWORK INTERNSHIP-C Cabrera Referring Provider Geoffrey NETWORK INTERNSHIP, NETWORK INTERNSHIP-C Cabrera Other Provider [phone] Dr. Jens Christine Attending Provider Darin NETWORK INTERNSHIP, NETWORK INTERNSHIP-C Jose Chase Attending Provider Erich, Dr. Jaya [...] Unavailable Erich, Jaya Chi Primary Care Provider Aurelia SELLERS, Rosalind Vasquez Unavailable Moustaphaseema TRINH, Jonathan S Unavailable ERICH, JAYA CHI Primary Care Unavailable RERE DUNCAN Attending Unavailable ROSALIND MOSES Referring Unacha Hale NETWORK INTERNSHIP, Cabrera Attending Unavailable Geoffrey NETWORK INTERNSHIP, Cabrera Referring Unavailable Erich, Jaya Chi Primary Care Unavailable Erich, Jaya Chi Attending Unavailable Erich, Jaya Chi Primary Care Unavailable Erich, Jaya Chi Referring Unavailable Jens Christine Attending Unavailable Moustapha, Highwood Referring Unavailable Erich, Jaya Chi Primary Care Unavailable Moustapha, Highwood Consulting Unavailable Erich, Jaya Chi Attending Unavailable Erich, Jaya Chi Referring Unavailable Erich, Jaya Chi Primary Care Unavailable Erich, Jaya Chi Attending Unavailable Erich, Jaya Chi Primary Care Unavailable Geoffrey NETWORK INTERNSHIP, Cabrera Attending Unavailable Geoffrey NETWORK INTERNSHIP, Cabrera Referring Unavailable Erich, Jaya Chi Primary Care Unavailable Erich, Jaya Chi Attending Unavailable Erich, Jaya Chi Primary Care Unavailable Moustapha, Highwood Attending Unavailable Moustapha, Highwood Referring Unavailable Erich, Jaya Chi Primary Care Unavailable Moustapha, Highwood Consulting Unavailable Moustapha, Jonathan Attending Unavailable Moustapha, Highwood Referring Unavailable Erich, Jaya Chi Primary Care Unavailable Moustapha, Jonathan Consulting Unavailable Jens Christine Attending Unavailable Moustapha, Jonathan Referring Unavailable Erich, Jaya Chi Primary Care Unavailable Moustapha, Jonathan Consulting Unavailable Moustapha, Highwood Attending Unavailable Erich, Jaya Chi Referring Unavailable Erich, Jaya Chi Primary Care Unavailable Moe Mccarthy Attending Unavailable Erich, Jaya Chi Primary Care Unavailable Rosalind Moses Attending Unavailabl e Erich, Jaya Chi Referring Unavailable Erich, Jaya Chi Primary Care Unavailable Jose Webster NP Attending Unavailable Erich, Jaya Chi Referring Unavailable Erich, Jaya Chi Primary Care Unavailable Rosalind Moses Attending Unavailabl e Erich, Jaya Chi Referring Unavailable Erich, Jaya Chi Primary Care Unavailable Erich, Jaya Chi Primary Care Unavailable Deon Bearden Attending Unavailable Sabra Arias Attending Unavailable Cabrera Hale NP Referring Unavailable Erich, Jaya Chi Primary Care Unavailable Moustapha, Highwood Attending Unavailable Erich, Jaya Chi Primary Care Unavailable Cabrera Hale NP Attending Unavailable Erich, Jaya Chi Primary Care Unavailable Karl Villar Attending Unavailable Prayson Karl Referring Unavailable Erich, Jaya Chi Primary Care Unavailable Erich, Jaya Chi Primary Care Unavailable GodmanNora Attending Unavailable Godman, Nora Referring Unavailable Moe Mccarthy Attending Unavailable Erich, Jaya Chi Primary Care Unavailable Moustapah, Highwood Attending Unavailable Erich, Jaya Chi Primary Care Unavailable Moustapha, Jonathan Referring Unavailable Cabrera Hale NP Attending Unavailable Erich, Jaya Chi Referring Unavailable Erich, Jaya Chi Primary Care Unavailable Rosalind Moses Attending Unavailabl e Erich, Jaya Chi Referring Unavailable Erich, Jaya Chi Primary Care Unavailable Rosalind Moses Attending Unavailabl e Erich, Jaya Chi Referring Unavailable Erich, Jaya Chi Primary Care Unavailable Cabrera Hale NP Attending Unavailable Erich, Jaya Chi Primary Care Unavailable Erich, Jaya Chi Referring Unavailable Moe Mccarthy Attending Unavailable Erich, Jaya Chi Primary Care Unavailable Erich, Jaya Chi Attending Unavailable Erich, Jaya Chi Referring Unavailable Erich, Jaya Chi Primary Care Unavailable Moustapha, Highwood Attending Unavailable Moustapha, Highwood Referring Unavailable Erich, Jaya Chi Primary Care Unavailable Allergies Allergy Classification Reported Allergen(s) Allergy Type Date of Onset Reaction(s) Facility (3 sources) acetaminophen / HYDROcodone; Translations: [HYDROCODONE-ACET AMINOPHEN] Drug Allergy 3 Mental Status Change [facility] Repository (20 sources) codeine; Translations: [CODEINE] Drug Allergy 3 Mental Status Change [facility] Repository (17 sources) Penicillins; Translations: [PENICILLINS] Propensity to adverse reactions to drug (disorder) 3 Hives [facility] Repository (3 sources) Penicillin; Translations: [penicillin] Drug Allergy [facility] (3 sources) penicillin G benzathine / penicillin G procaine; Translations: [benzathine penicillin-procai ne penicillin] Drug Allergy Unknown [facility] (1 source) oxyCODONE Drug Allergy 5 [facility] Repository Medications Current Medications Medication Drug Class(es) [...] Discontinued 200 MG PO TWICE A DAY 4 August 19, 2017 1:00am September 08, 2017 [...] Start: 11-14-2022 Azithromycin Active 0 PO .COMPLEX 6 November 14, 2022 1:00am take 500 mg [...] Diuretic, Angiotensin 2 Receptor Penny Start: 04-10-2021 hydrochlorothiazide-eileen bob 12.5-100 mg oral tablet 0 Refill(s) Start [...] Start: 09-19-2024 take 1 capsule by mo uth once daily venlafaxine ER (EFFEXOR XR) 75 [...] 1 TABLET PO EVERY 4 HOURS NEEDED 20 7 August 30, 2019 September 14, 2019 1:10am [id number] 200 actuat albuterol 0.09 mg/actuat metered dose inhaler (1 source) beta2-Adrenergic Agonist Start: 09-02-2024 End: 12-28-2024 albuterol HFA (PROVENTIL HFA, VENTOLIN HFA) 90 mcg/actuation inhaler 09/02/2024 12/28/2024 Discontinued (Other) ALPRAZolam 1 mg oral tablet (14 sources) Benzodiazepine Start: 01-27-2013 End: 12-28-2024 take 1 mg by mouth twice daily as needed Alprazolam Discontinued 1 MG PO TWICE DAILY NEEDED August 16, 2018 1:00am Gonzalo 16th, 2021 9:21pm biotin 2.5 mg oral capsule [...] 08-08-2017 End: 10-24-2019 Ergocalciferol (Vitamin D2) Discontinued 18595 UNITS PO VASQUEZ August 08, 2017 1:00am [...] 200 MG PO 3 TIMES DAILY NEEDED 26 04August 30, 2019 1:00am September 14, 2019 1:10am [...] q12h, # 4 tab(s), 0 Refill(s), Pharmacy: [facility] [place], 160, cm, 05/21/22 10:45:00 EDT, Height, 94, [...] unspecified; Translations: [Anxiety disorder, unspecified] Onset: 03-07-20 25 Chronic Cancer of bladder (9 sources) Malignant tumor of urinary bladder; Translations: [Primary malignant neoplasm of bladder] Onset: 08-31-20 24 09-25-2020 Chronic Cancer of bladder (13 sources) H/O: malignant neoplasm; Translations: [Personal history of malignant neoplasm of bladder] 08-30-2019 Episodic Cardiac dysrhythmias (20 sources) Atrial fibrillation with rapid ventricular response; Translations: [Unspecified atrial fibrillation] Onset: 08-11-20 Chronic Cardiac dysrhythmias (20 sources) Bradycardia; Translations: [Bradycardia, unspecified] Onset: 11-14-19 Episodic Diabetes mellitus with complications (1 source) Type 2 diabetes mellitus with hyperglycemia; Translations: [Type 2 diabetes mellitus with hyperglycemia] Onset: 01-17-20 Chronic Disorders of lipid metabolism (20 sources) Hyperlipidemia; Translations: [Hyperlipidemia, unspecified] Onset: 04-24-20 Chronic Essential hypertension (20 sources) Essential hypertension; Translations: [Essential (primary) hypertension] Chronic Malaise and fatigue (6 sources) Fatigue; Translations: [Other fatigue] Onset: 04-24-2011-14-2022 Episodic Mood disorders (1 source) Major depressive disorder, single episode, unspecified; Translations: [Major depressive disorder, single episode, unspecified] Onset: 03-07-20 Chronic Other aftercare (5 sources) Drug therapy finding; Translations: [Other breakfast server (current) drug therapy] 11-06-2022 Episodic Other aftercare (3 sources) Long-term current use of anticoagulant; Translations: [bay stocker (current) use of anticoagulants] Onset: 12-05-1903-12-2023 Episodic Other aftercare (1 source) assisted (current) use of anticoagulants; Translations: [Anticoagulant long-term [...] Episodic Other lower respiratory disease (1 source) Shortness of breath; Translations: [Shortness of breath] Onset: 04-24-20 Episodic Other non-traumatic joint disorders (8 sources) [...] [Acute bronchitis, unspecified] Onset: 10-31-2024 11-14-2022 Episodic Complications of surgical procedures or medical care (16 sources) Atrial fibrillation; Translations: [Other postprocedural complications and disorders of the circulatory system, not elsewhere classified] Onset: 08-11-2017 Episodic Other aftercare (5 sources) Other breakfast server (current) drug therapy; Translations: [Long-term (current) use [...] )on 04-17-2025 BUN/CRE 24.5 RATIO High 07-17 [facility] Comment on above: Performed By: #### L 500.2500 ####[facility] [address] [place], [address] Calcium [Mass/Vol] 9.5 mg/dL Normal 7.6-11.0 [facility] Comment on above: Performed By: #### L 500.2500 ####[facility] [address] [place], [address] Chloride [Moles/Vol] 98 mmol/L Normal 98-108 [facility] Comment on above: Performed By: #### L 500.2500 ####[facility] [address] [place], [address] CO2 [Moles/Vol] 25.7 mmol/L Normal 21.0-32.0 [facility] Comment on above: Performed By: #### L 500.2500 ####[facility] [address] [place], [address] Creatinine [Mass/Vol] 0.62 mg/dL Low 0.70-1.20 [facility] Comment on above: Performed By: #### L 500.2500 ####[facility] [address] [place], [address] ECRCL 56.89 ml/min Normal 50-250 [facility] Comment on above: Performed By: #### L 500.2500 ####[facility] [address] [place], [address] GAP 13 Normal 5-15 [facility] Comment on above: Performed By: #### L 500.2500 ####[facility] [address] [place], [address] GFR/1.73 sq M.predicted among non-blacks MDRD (S/P/Bld) [Vol rate/Area] 91 mL/min/{1.73_m2} Normal >60 [facility] Comment on above: Result Comment: mL/m in/1.73m2 CKD-EPI Creatinine Equation (2020) Performed By: #### L 500.2500 ####[facility] [address] [place], [address] Glucose [Mass/Vol] 103 mg/dL High 70-99 [facility] Comment on above: Performed By: #### L 500.2500 ####[facility] [address] [place], [address] Potassium [Moles/Vol] 4.6 mmol/L Normal 3.3-5.1 [facility] Comment on above: Result Comment: Hemo lysis present, Results??could be affected. ?? Performed By: #### L 500.2500 ####[facility] [address] [place], [address] Sodium [Moles/Vol] 137 mmol/L Normal 133-145 [facility] Comment on above: Performed By: #### L 500.2500 ####[facility] [address] [place], [address] Urea nitrogen [Mass/Vol] 15 mg/dL Normal 4-19 [facility] Comment on above: Performed By: #### L 500.2500 ####[facility] [address] [facility] [address] BUN Normal 4-19 [facility] Comment on above: Result Comment: This specimen has been REJECTED due to Laboratory criteria: Hemolyzed. PAUL has been notified of need of recollection. 04/17/251101 Wyatt R Stoner Performed By: #### L 500.2500 ####[facility] [address] [facility] [address] BUN/CRE Normal 10-20 [facility] Comment on above: Result Comment: This specimen has been REJECTED due to Laboratory criteria: Hemolyzed. PAUL has been notified of need of recollection. 04/17/251101 Wyatt R Stoner Performed By: #### L 500.2500 ####[facility] [address] [facility] [address] Calcium Normal 7.6-11.0 [facility] Comment on above: Result Comment: This specimen has been REJECTED due to Laboratory criteria: Hemolyzed. PAUL has been notified of need of recollection. 04/17/251101 Wyatt R Stoner Performed By: #### L 500.2500 ####[facility] [address] [facility] [address] CL Normal 98-108 [facility] Comment on above: Result Comment: This specimen has been REJECTED due to Laboratory criteria: Hemolyzed. PAUL has been notified of need of recollection. 04/17/251101 Wyatt R Stoner Performed By: #### L 500.2500 ####[facility] [address] [facility] [address] CO2 Normal 21.0-32.0 [facility] Comment on above: Result Comment: This specimen has been REJECTED due to Laboratory criteria: Hemolyzed. PAUL has been notified of need of recollection. 04/17/251101 Wyatt R Stoner Performed By: #### L 500.2500 ####[facility] [address] [place], [address] CREAT,SERUM Normal 0.70-1.20 [facility] Comment on above: Result Comment: This specimen has been REJECTED due to Laboratory criteria: Hemolyzed. PAUL has been notified of need of recollection. 04/17/251101 Wyatt R Stoner Performed By: #### L 500.2500 ####[facility] [address] [facility] [address] eGFR Normal >60 [facility] Comment on above: Result Comment: This specimen has been REJECTED due to Laboratory criteria: Hemolyzed. PAUL has been notified of need of recollection. 04/17/251101 Wyatt R Stoner Performed By: #### L 500.2500 ####[facility] [address] [facility] [address] GAP Normal 5-15 [facility] Comment on above: Result Comment: This specimen has been REJECTED due to Laboratory criteria: Hemolyzed. PAUL has been notified of need of recollection. 04/17/251101 Wyatt R Stoner Performed By: #### L 500.2500 ####[facility] [address] [facility] [address] GLU Normal 70-99 [facility] Comment on above: Result Comment: This specimen has been REJECTED due to Laboratory criteria: Hemolyzed. PAUL has been notified of need of recollection. 04/17/251101 Wyatt R Stoner Performed By: #### L 500.2500 ####[facility] [address] [place], [address] Potassium Normal 3.3-5.1 [facility] Comment on above: Result Comment: This specimen has been REJECTED due to Laboratory criteria: Hemolyzed. PAUL has been notified of need of recollection. 04/17/251101 Wyatt R Stoner Performed By: #### L 500.2500 ####[facility] [address] [facility] [address] Basic Metabolic Profile (BMP) Normal 133-145 [facility] Comment on above: Result Comment: This specimen has been REJECTED due to Laboratory criteria: Hemolyzed. PAUL has been notified of need of recollection. 04/17/25 1102 Wyatt Merrill Performed By: #### L 500.2500 ####[facility] [address] [place], [address] Cardiology Visit Reporton Cardiology Visit Report [facility] [address] [place], [place] [address] OFFICE VISIT Date of Service: 04/05/26 MR#: [id number] Acct: [id number] Name: ITZ VEGAS Rep #: [id number] : 1945 Provider: Dr. Jonathan Gerard MD Age/Sex: 79/F Location[place] [facility] Status: Signed HPI HPI History of [...] use of high-risk medication Postoperative atrial fibrillation (11/14/17) HLD (hyperlipidemia) Surgical History History of right [...] ENT: Negati (more content not included)... Normal [facility] Procedure Reporton Procedure Report [facility] [address] [place] [address] Procedure Report 04/17/25 1306 MR#: [id number] Acct: [id number] Name: ITZ VEGAS Rep #: [id number] : 1945 79 From: Jens Christine DO PCP: Dr. Jaya Jung MD Status:[facility] Location: [facility] Procedures Pulmonary Pulmonary Procedures /Diagnostic Testin Con Sedation Non-invasive Procedural Procedure Information Date of Procedure: 04/17/25 Description of procedure: CONSCIOUS SEDATION REPORT DATE OF SERVICE: April 17, 2025 BRIEF HISTORY OF PRESENT ILLNESS: The patient is a 79-year-old female who presented to [facility] to undergo an elective outpatient cardioversion [...] CC: Dr. Jonathan Gerard MD; Dr. Jens hCristine DO; Dr. Jaya Jung MD Signed Normal [facility] Procedure Report [facility] [address] [place] [address] Procedure Report 04/17/25 1238 MR#: [id number] Acct: [id number] Name: ITZ VEGAS Rep #: [id number] : 1945 79 From: Jonathan Gerard MD PCP: Dr. Jaya Jung MD Status:REG [facility] Location: [facility] Non-invasive Procedural Procedure Information Date of Procedure: [...] MD; Dr. Jaya Jung MD Signed Normal [facility] Cardiology Visit Reporton Cardiology Visit Report [facility] [address] [place] [address] OFFICE VISIT Date of Service: 03/13/25 MR#: [id number] Acct: [id number] Name: ITZ VEGAS Rep #: [id number] : 1945 Provider: PRABHJOT escudero Age/Sex: 79/F Location[place] [facility] Status: Signed HPI HPI History of [...] is controlled. She is living at [facility]. Patient was seen by Dr. Duncan in [...] Source Monitor Intake Visit Reasons: AFIB/NEEDS EKG Thread Weaver Required: No Accompanied by: Self Is patient [...] fallen in the past year?: Yes (one-tripped) [facility] Medical History Atrial fibrillati (more content not included)... Normal [facility] 12 Lead EKGon 03-11-2025 12 Lead EKG [facility] Cardiovascular Services [address] [place] [address] 12 Lead EKG 03/11/25 1054 MR#: [id number] Acct: [id number] Name: ITZ VEGAS Rep #: [id number] : 1945 79 From: Jonathan Gerard MD Attending Dr: Status: DEP Ordering Dr: Deon Bearden MD Date: 03/11/25 [...] have occurred Confirmed by JONATHAN GERARD MD ([id number]), video news editor AURELIO TUCKER ([id number]) on 03/15/2025 7:27:51 AM Referred By: Confirmed By: JONATHAN GERARD MD 03/15/25726 Date Jonathan Gerard MD CC: Dr. Deon Bearden MD; Dr. Jaya Jung MD Signed [facility] 12 Lead EKG [facility] Cardiovascular Services [address] [place] [address] 12 Lead EKG 03/11/25 1437 MR#: [id number] Acct: [id number] Name: ITZ VEGAS Rep #: [id number] : 1945 79 From: Jonathan Gerard MD [...] Abnormal ECG Confirmed by JONATHAN GERARD MD ([id number]), video news editor UMU HARRIS ([id number]) on 03/14/2025 7:48:54 AM Referred By: Confirmed By: JONATHAN GERARD MD 03/14/25 0748 Date Jonathan Gerard MD CC: Dr. Deon Bearden MD; Dr. Jaay Jung MD Signed Normal [facility] Basic Metabolic Profile (BMP )on 03-11-2025 BUN/CRE 19.5 RATIO Normal 10-20 [facility] Comment on above: Performed By: #### L 501.4020, L100.0100, L501.5200, L300.8000, L501.3620, L500.4050, L3600.5100, L501.9520 #### [facility] [address] [place], [address] Calcium [Mass/Vol] 9.9 mg/dL Normal 7.6-11.0 [facility] Comment on above: Performed By: #### L 501.4020, L100.0100, L501.5200, L300.8000, L501.3620, L500.4050, L3600.5100, L501.9520 #### [facility] [address] [place], [address] Chloride [Moles/Vol] 102 mmol/L Normal 98-108 [facility] Comment on above: Performed By: #### L 501.4020, L100.0100, L501.5200, L300.8000, L501.3620, L500.4050, L3600.5100, L501.9520 #### [facility] [address] [place], [address] CO2 [Moles/Vol] 23.4 mmol/L Normal 21.0-32.0 [facility] Comment on above: Performed By: #### L 501.4020, L100.0100, L501.5200, L300.8000, L501.3620, L500.4050, L3600.5100, L501.9520 #### [facility] [address] [place], [address] Creatinine [Mass/Vol] 0.67 mg/dL Low 0.70-1.20 [facility] Comment on above: Performed By: #### L 501.4020, L100.0100, L501.5200, L300.8000, L501.3620, L500.4050, L3600.5100, L501.9520 #### [facility] [address] [place], [address] ECRCL 56.89 ml/min Normal 50-250 [facility] Comment on above: Performed By: #### L 501.4020, L100.0100, L501.5200, L300.8000, L501.3620, L500.4050, L3600.5100, L501.9520 #### [facility] [address] [place], [address] GAP 14 Normal 5-15 [facility] Comment on above: Performed By: #### L 501.4020, L100.0100, L501.5200, L300.8000, L501.3620, L500.4050, L3600.5100, L501.9520 #### [facility] [address] [place], [place], [address] (921) GFR/1.73 sq M.predicted among non-blacks MDRD (S/P/Bld) [Vol rate/Area] 90 mL/min/{1.73_m2} Normal >60 [facility] Comment on above: Result Comment: mL/m in/1.73m2 CKD-EPI Creatinine Equation (2020) Performed By: #### L 501.4020, L100.0100, L501.5200, L300.8000, L501.3620, L500.4050, L3600.5100, L501.9520 #### [facility] [address] [place], [address] Glucose [Mass/Vol] 132 mg/dL High 70-99 [facility] Comment on above: Performed By: #### L 501.4020, L100.0100, L501.5200, L300.8000, L501.3620, L500.4050, L3600.5100, L501.9520 #### [facility] [address] [place], [address] Potassium [Moles/Vol] 4.3 mmol/L Normal 3.3-5.1 [facility] Comment on above: Performed By: #### L 501.4020, L100.0100, L501.5200, L300.8000, L501.3620, L500.4050, L3600.5100, L501.9520 #### [facility] [address] [place], [address] Sodium [Moles/Vol] 140 mmol/L Normal 133-145 [facility] Comment on above: Performed By: #### L 501.4020, L100.0100, L501.5200, L300.8000, L501.3620, L500.4050, L3600.5100, L501.9520 #### [facility] [address] [place], [address] Urea nitrogen [Mass/Vol] 13 mg/dL Normal 4-19 [facility] Comment on above: Performed By: #### L 501.4020, L100.0100, L501.5200, L300.8000, L501.3620, L500.4050, L3600.5100, L501.9520 #### [facility] [address] [place], [address] CBC W/Diff, Automatedon 06-10 01-2024 Absolute Lymph 2.60 X10 3/uL Normal 0.83-4.51 [facility] Comment on above: Performed By: #### L 501.4020, L100.0100, L501.5200, L300.8000, L501.3620, L500.4050, L3600.5100, L501.9520 #### [facility] [address] [place], [address] Absolute Neut 10.4 X10 3/uL High 2.0-7.7 [facility] Comment on above: Performed By: #### L 501.4020, L100.0100, L501.5200, L300.8000, L501.3620, L500.4050, L3600.5100, L501.9520 #### [facility] [address] [place], [address] Basophils/100 WBC (Bld) 0.6 % Normal 0-1 [facility] Comment on above: Performed By: #### L 501.4020, L100.0100, L501.5200, L300.8000, L501.3620, L500.4050, L3600.5100, L501.9520 #### [facility] [address] [place], [address] Eosinophils/100 WBC (Bld) 0.6 % Normal 0-5 [facility] Comment on above: Performed By: #### L 501.4020, L100.0100, L501.5200, L300.8000, L501.3620, L500.4050, L3600.5100, L501.9520 #### [facility] [address] [place], [address] Erythrocyte distribution width (RBC) [Ratio] 12.4 % Normal 11.6-14.6 [facility] Comment on above: Performed By: #### L 501.4020, L100.0100, L501.5200, L300.8000, L501.3620, L500.4050, L3600.5100, L501.9520 #### [facility] [address] [place], [address] Hematocrit (Bld) [Volume fraction] 43.7 % Normal 37-47 [facility] Comment on above: Performed By: #### L 501.4020, L100.0100, L501.5200, L300.8000, L501.3620, L500.4050, L3600.5100, L501.9520 #### [facility] [address] [place], [address] Hemoglobin (Bld) [Mass/Vol] 14.4 g/dL Normal 12.0-15.0 [facility] Comment on above: Performed By: #### L 501.4020, L100.0100, L501.5200, L300.8000, L501.3620, L500.4050, L3600.5100, L501.9520 #### [facility] [address] [place], [address] IG% 0.400 Normal 0.0-0.9 [facility] Comment on above: Result Comment: IG% - Immature Granulocytes (promyelocytes, myelocytes and metamyelocytes) > 1% indicates that a LEFT SHIFT is Present. Performed By: #### L 501.4020, L100.0100, L501.5200, L300.8000, L501.3620, L500.4050, L3600.5100, L501.9520 #### [facility] [address] [place], [address] Lymphocytes/100 WBC (Bld) 18.3 % Low 19-41 [facility] Comment on above: Performed By: #### L 501.4020, L100.0100, L501.5200, L300.8000, L501.3620, L500.4050, L3600.5100, L501.9520 #### [facility] [address] [place], [address] MCH (RBC) [Entitic mass] 31.7 pg Normal 27.0-32.0 [facility] Comment on above: Performed By: #### L 501.4020, L100.0100, L501.5200, L300.8000, L501.3620, L500.4050, L3600.5100, L501.9520 #### [facility] [address] [place], [address] MCHC (RBC) [Mass/Vol] 33.0 g/dL Normal 32-36 [facility] Comment on above: Performed By: #### L 501.4020, L100.0100, L501.5200, L300.8000, L501.3620, L500.4050, L3600.5100, L501.9520 #### [facility] [address] [place], [address] MCV (RBC) [Entitic vol] 96.3 fL Normal 81-99 [facility] Comment on above: Performed By: #### L 501.4020, L100.0100, L501.5200, L300.8000, L501.3620, L500.4050, L3600.5100, L501.9520 #### [facility] [address] [place], [address] Monocytes/100 WBC (Bld) 7.4 % Normal 0-10 [facility] Comment on above: Performed By: #### L 501.4020, L100.0100, L501.5200, L300.8000, L501.3620, L500.4050, L3600.5100, L501.9520 #### [facility] [address] [place], [address] Neutrophils/100 WBC (Bld) 72.7 % High 47-70 [facility] Comment on above: Performed By: #### L 501.4020, L100.0100, L501.5200, L300.8000, L501.3620, L500.4050, L3600.5100, L501.9520 #### [facility] [address] [place], [address] Nucleated RBC (Bld) [#/Vol] 0 10*3/uL Normal 0-5 [facility] Comment on above: Performed By: #### L 501.4020, L100.0100, L501.5200, L300.8000, L501.3620, L500.4050, L3600.5100, L501.9520 #### [facility] [address] [place], [address] Platelet mean volume (Bld) [Entitic vol] 11.0 fL Normal 6.2-12.0 [facility] Comment on above: Performed By: #### L 501.4020, L100.0100, L501.5200, L300.8000, L501.3620, L500.4050, L3600.5100, L501.9520 #### [facility] [address] [place], [address] Platelets (Bld) [#/Vol] 341 10*3/uL Normal 150-450 [facility] Comment on above: Performed By: #### L 501.4020, L100.0100, L501.5200, L300.8000, L501.3620, L500.4050, L3600.5100, L501.9520 #### [facility] [address] [place], [address] RBC (Bld) [#/Vol] 4.54 10*6/uL Normal 4.2-5.4 [facility] Comment on above: Performed By: #### L 501.4020, L100.0100, L501.5200, L300.8000, L501.3620, L500.4050, L3600.5100, L501.9520 #### [facility] [address] [place], [address] RDW SD 43.8 fl Normal 35.1-43.9 [facility] Comment on above: Performed By: #### L 501.4020, L100.0100, L501.5200, L300.8000, L501.3620, L500.4050, L3600.5100, L501.9520 #### [facility] [address] [place], [address] WBC (Bld) [#/Vol] 14.2 10*3/uL High 4.4-11.0 [facility] Comment on above: Performed By: #### L 501.4020, L100.0100, L501.5200, L300.8000, L501.3620, L500.4050, L3600.5100, L501.9520 #### [facility] [address] [place], [address] Chest 1 View (Portable)on Chest 1 View (Portable) [facility] Imaging Services [address] [place] [address] Chest 1 View (Portable) MR#: [id number] Acct: [id number] Name: ITZ VEGAS Rep #: [id number] : 1945 F 79 From: Mariana Hickman PCP: Dr. Jaya Jung MD Status: [facility] ER Study: Chest 1 View (Portable) Date of Exam: 03/11/25 Exam# [id number] Ordering Dr: Deon Bearden MD PROCEDURE: CHEST [...] mild cardiomegaly. No focal consolidations. Reading Location: [facility] CC: Dr. Deon Bearden MD; Dr. Jaya Jung MD Administration Clerk: Signed Normal [facility] Emergency Department Summary on 03-11-2025 Emergency Department Summary [facility] Medical Records Department [address] [place] [address] Emergency Department Summary 03/11/25 MR#: [id number] Acct: [id number] Name: ITZ VEGAS Rep #: [id number] : 1945 79 From: Deon Bearden MD [...] were cardioverted. She is also seen in [facility] phys assistant and they discussed cardioversion but did not [...] TAD Risk Factors: Negative for Marfan's Syndrome [facility] Medical History Atrial fibrillation with rapid ventricular [...] cold intoler (more content not included)... Normal [facility] L499.0042on 03-11-2025 Trop T High Sen 21 ng/L High <=14 [facility] Comment on above: Performed By: #### L 499.0042 ####[facility] [address] [facility] [place], [place], [address] L501.4021on 03-11-2025 Trop T High Sen 18 ng/L High <=14 [facility] Comment on above: Performed By: #### L 501.4020, L100.0100, L501.5200, L300.8000, L501.3620, L500.4050, L3600.5100, L501.9520 #### [facility] [address] [facility]. [place], [place], [address] /BMS.BPon 03-01-2025 MR/BMS.BP [address], [address] [place] [address] OFFICE VISIT Date of Service: 03/01/25 MR#: [id number] Acct: [id number] Name: ASCENCIONITZ BECKER Demetri Rep #: [id number] : 1945 Provider: Dr. Moe Dexter se, DO Age/Sex: 79/F Location: [facility] Status: Signed Intake Vital Signs 09/14/24 14:36 [...] great. Still very much enjoying living at [place] in the assisted living facility. 's health remains somewhat stable. She visits him every day and feeds him lunch and dinner nearly every day. Regularly gets visits from her daughter and calls from her son. Reports that her health as been doing well. Did have a few runs of AFib and did have a cardioversion. Saw a phys assistant who feels things are doing well. Sleep [...] Activity/Motor Behavior (more content not included)... Normal [facility] Cardiology Visit Reporton Cardiology Visit Report [facility] [address] [place] [address] OFFICE VISIT Date of Service: 01/13/25 MR#: [id number] Acct: [id number] Name: ITZ VEGAS Rep #: [id number] : 1945 Provider: RAFAEL Her Age/Sex: 79/F Location: [facility] Status: Signed HPI HPI History of [...] is controlled. She is living at [facility]. Patient was seen by Dr. Duncan in [...] (%) 95 Intake Visit Reasons: 4 M FU Thread Weaver Required: No Is patient in pain?: No [...] you fallen in the past year?: Yes [facility] Medical History Atrial fibrillation with rapid ventricular response (08/11/17) Anxiety MDD (major depressive disorder) Osteopenia Gallstones Emotional problems Cancer Arthritis Atrial flutter with rapid ventricular (more content not included)... Normal [facility] CBC W/Diff, Automatedon 12-27 Absolute Lymph 2.22 X10 3/uL Normal 0.83-4.51 [facility] Comment on above: Performed By: #### L 100.0100, L501.9520, L506.1001, L500.4050 ####[facility] [address] [place], [address] Absolute Neut 11.2 X10 3/uL High 2.0-7.7 [facility] Comment on above: Performed By: #### L 100.0100, L501.9520, L506.1001, L500.4050 ####[facility] [address] [place], [address] Basophils/100 WBC (Bld) 0.7 % Normal 0-1 [facility] Comment on above: Performed By: #### L 100.0100, L501.9520, L506.1001, L500.4050 ####[facility] [address] [place], [address] Eosinophils/100 WBC (Bld) 0.5 % Normal 0-5 [facility] Comment on above: Performed By: #### L 100.0100, L501.9520, L506.1001, L500.4050 ####[facility] [address] [place], [address] Erythrocyte distribution width (RBC) [Ratio] 13.2 % Normal 11.6-14.6 [facility] Comment on above: Performed By: #### L 100.0100, L501.9520, L506.1001, L500.4050 ####[facility] [address] [place], [address] Hematocrit (Bld) [Volume fraction] 41.0 % Normal 37-47 [facility] Comment on above: Performed By: #### L 100.0100, L501.9520, L506.1001, L500.4050 ####[facility] [address] [place], [address] Hemoglobin (Bld) [Mass/Vol] 13.9 g/dL Normal 12.0-15.0 [facility] Comment on above: Performed By: #### L 100.0100, L501.9520, L506.1001, L500.4050 ####[facility] [address] [place], [address] IG% 0.600 Normal 0.0-0.9 [facility] Comment on above: Result Comment: IG% - Immature Granulocytes (promyelocytes, myelocytes and metamyelocytes) > 1% indicates that a LEFT SHIFT is Present. Performed By: #### L 100.0100, L501.9520, L506.1001, L500.4050 ####[facility] [address] [place], [address] Lymphocytes/100 WBC (Bld) 15.1 % Low 19-41 [facility] Comment on above: Performed By: #### L 100.0100, L501.9520, L506.1001, L500.4050 ####[facility] [address] [place], [address] MCH (RBC) [Entitic mass] 32.6 pg High 27.0-32.0 [facility] Comment on above: Performed By: #### L 100.0100, L501.9520, L506.1001, L500.4050 ####[facility] [address] [place], [address] MCHC (RBC) [Mass/Vol] 33.9 g/dL Normal 32-36 [facility] Comment on above: Performed By: #### L 100.0100, L501.9520, L506.1001, L500.4050 ####[facility] [address] [place], [address] MCV (RBC) [Entitic vol] 96.0 fL Normal 81-99 [facility] Comment on above: Performed By: #### L 100.0100, L501.9520, L506.1001, L500.4050 ####[facility] [address] [place], [address] Monocytes/100 WBC (Bld) 6.5 % Normal 0-10 [facility] Comment on above: Performed By: #### L 100.0100, L501.9520, L506.1001, L500.4050 ####[facility] [address] [place], [address] Neutrophils/100 WBC (Bld) 76.6 % High 47-70 [facility] Comment on above: Performed By: #### L 100.0100, L501.9520, L506.1001, L500.4050 ####[facility] [address] [place], [address] Nucleated RBC (Bld) [#/Vol] 0 10*3/uL Normal 0-5 [facility] Comment on above: Performed By: #### L 100.0100, L501.9520, L506.1001, L500.4050 ####[facility] [address] [place], [address] Platelet mean volume (Bld) [Entitic vol] 10.7 fL Normal 6.2-12.0 [facility] Comment on above: Performed By: #### L 100.0100, L501.9520, L506.1001, L500.4050 ####[facility] [address] [place], [address] Platelets (Bld) [#/Vol] 340 10*3/uL Normal 150-450 [facility] Comment on above: Performed By: #### L 100.0100, L501.9520, L506.1001, L500.4050 ####[facility] [address] [place], [address] RBC (Bld) [#/Vol] 4.27 10*6/uL Normal 4.2-5.4 [facility] Comment on above: Performed By: #### L 100.0100, L501.9520, L506.1001, L500.4050 ####[facility] [address] [place], [address] RDW SD 46.4 fl High 35.1-43.9 [facility] Comment on above: Performed By: #### L 100.0100, L501.9520, L506.1001, L500.4050 ####[facility] [address] [place], [address] WBC (Bld) [#/Vol] 14.7 10*3/uL High 4.4-11.0 [facility] Comment on above: Performed By: #### L 100.0100, L501.9520, L506.1001, L500.4050 ####[facility] [address] [place], [address] Comprehensive Metabolic Prof ilon 01-11-2025 Albumin [Mass/Vol] 4.0 g/dL Normal 3.4-4.8 [facility] Comment on above: Performed By: #### L 100.0100, L501.9520, L506.1001, L500.4050 ####[facility] [address] [place], [address] Albumin/Globulin [Mass ratio] 1.4 {ratio} Normal 0.9-2.4 [facility] Comment on above: Performed By: #### L 100.0100, L501.9520, L506.1001, L500.4050 ####[facility] [address] [place], [address] ALK PHOS 82 U/L Normal 35-104 [facility] Comment on above: Performed By: #### L 100.0100, L501.9520, L506.1001, L500.4050 ####[facility] [address] [place], [address] ALT [Catalytic activity/Vol] 18 U/L Normal <=34 [facility] Comment on above: Performed By: #### L 100.0100, L501.9520, L506.1001, L500.4050 ####[facility] [address] [place], [address] AST [Catalytic activity/Vol] 20 U/L Normal <=31 [facility] Comment on above: Performed By: #### L 100.0100, L501.9520, L506.1001, L500.4050 ####[facility] [address] [place], [address] Bilirubin [Mass/Vol] 0.23 mg/dL Normal 0.00-1.30 [facility] Comment on above: Performed By: #### L 100.0100, L501.9520, L506.1001, L500.4050 ####[facility] [address] [place], [address] BUN/CRE 20.8 RATIO High 10-20 [facility] Comment on above: Performed By: #### L 100.0100, L501.9520, L506.1001, L500.4050 ####[facility] [address] [place], [address] Calcium [Mass/Vol] 10.1 mg/dL Normal 7.6-11.0 [facility] Comment on above: Performed By: #### L 100.0100, L501.9520, L506.1001, L500.4050 ####[facility] [address] [place], [address] Chloride [Moles/Vol] 102 mmol/L Normal 98-108 [facility] Comment on above: Performed By: #### L 100.0100, L501.9520, L506.1001, L500.4050 ####[facility] [address] [place], [address] CO2 [Moles/Vol] 26.7 mmol/L Normal 21.0-32.0 [facility] Comment on above: Performed By: #### L 100.0100, L501.9520, L506.1001, L500.4050 ####[facility] [address] [place], [address] Creatinine [Mass/Vol] 0.64 mg/dL Low 0.70-1.20 [facility] Comment on above: Performed By: #### L 100.0100, L501.9520, L506.1001, L500.4050 ####[facility] [address] [place], [address] GAP 13 Normal 5-15 [facility] Comment on above: Performed By: #### L 100.0100, L501.9520, L506.1001, L500.4050 ####[facility] [address] [place], [address] GFR/1.73 sq M.predicted among non-blacks MDRD (S/P/Bld) [Vol rate/Area] 90 mL/min/{1.73_m2} Normal >60 [facility] Comment on above: Result Comment: mL/m in/1.73m2 CKD-EPI Creatinine Equation (2020) Performed By: #### L 100.0100, L501.9520, L506.1001, L500.4050 ####[facility] [address] [place], [address] Globulin (S) [Mass/Vol] 2.8 g/dL Normal 2.2-4.2 [facility] Comment on above: Performed By: #### L 100.0100, L501.9520, L506.1001, L500.4050 ####[facility] [address] [place], [address] Glucose [Mass/Vol] 135 mg/dL High 70-99 [facility] Comment on above: Performed By: #### L 100.0100, L501.9520, L506.1001, L500.4050 ####[facility] [address] [place], [address] Potassium [Moles/Vol] 4.5 mmol/L Normal 3.3-5.1 [facility] Comment on above: Performed By: #### L 100.0100, L501.9520, L506.1001, L500.4050 ####[facility] [address] [place], [address] Sodium [Moles/Vol] 141 mmol/L Normal 133-145 [facility] Comment on above: Performed By: #### L 100.0100, L501.9520, L506.1001, L500.4050 ####[facility] [address] [place], [address] T PROT 6.8 g/dL Normal 5.9-8.4 [facility] Comment on above: Performed By: #### L 100.0100, L501.9520, L506.1001, L500.4050 ####[facility] [address] [place], [address] Urea nitrogen [Mass/Vol] 13 mg/dL Normal 4-19 [facility] Comment on above: Performed By: #### L 100.0100, L501.9520, L506.1001, L500.4050 ####[facility] [address] [place], [address] Thyroid Stim Hormone (TSH)on 01-11-2025 TSH 1.450 uIU/mL Normal 0.300-4.200 [facility] Comment on above: Performed By: #### L 100.0100, L501.9520, L506.1001, L500.4050 ####[facility] [address] [place], [address] Vitamin D,25 Hydroxyon 01-11 Vitamin D 25-OH 33.8 ng/mL Normal 30-100 [facility] Comment on above: Result Comment: Akua min D Status Deficiency: <20 ng/mL (50nmol/L) Insufficiency: 20-30 ng/mL (50-75 nmol/L) Sufficiency: 30-100 ng/mL (75-250 nmol/L) Toxicity: >100 ng/mL (>250 nmol/L) Performed By: #### L 100.0100, L501.9520, L506.1001, L500.4050 ####[facility] [address] [place], [address] CNOVon 12-28-2024 [facility] Office Visit (AGCARD POB) ITZ VEGAS ([id number]) 1945 F UPA Date Time Provider Department 12/28/24 10:20 AM RERE DUNCAN AGCARDPOB During your visit today, we recorded the following information about you: Pulse Blood pressure Weight Height 58/minute 152/61 80.3 kg 1.575 m Rere Duncan MD 12/28/2024 9:26 PM Signed PRIMARY CARE PHYSICIAN: Jaya Jung MD [address] [place], [place] [id number] REFERRING PHYSICIAN: Rosalind Moses ([facility]) [address] [place] [id number] Patient Care Team: Jaya Jung Chi as PCP - General (Gerontology) Rosalind Moses PA-C as Physician Data Entry Manager (Cardiology) Jonathan Gerard MD as Specialty Careers Adviser (Cardiology) CHIEF COMPLAINT: Evaluation of arrhythmia HISTORY OF PRESENT ILLNESS: Ms. Vegas is a 79 year old female who presents today for evaluation of atrial fibrillation, referred by [facility]. The patient is a 79-year-old [...] in stress levels since moving to [facility], where she feels happier and more independent. [...] daily (150 mg + 75 mg), and xsdm-jxe-rqmesqy vitamin D3 with vitamin K. I have [...] (more content not included)... Normal [facility] ECG B/O W INTERP (MED OFFICE )on 12-28-2024 Sinus bradycardia 58 bpm; first-degree AV block ([place] 212 ms); normal QRS duration 78 ms; QTc 418 ms [facility] M100.678on 12-05-2024 M100.678 Pending SARS-CoV-2 (COVID 19) Negative INFLUENZA A Negative INFLUENZA B Negative RSV PCR Negative Normal [facility] Comment on above: Performed By: #### M 100.678 ####[facility] [address] [facility] [place], [address] Chest PA and Lateralon 11-24 Chest PA and Lateral [facility] Imaging Services [address] [place], [place] [address] Chest PA and Lateral MR#: [id number] Acct: [id number] Name: ITZ VEGAS Rep #: [id number] : 1945 F 79 From: Rere Goodson PCP: Dr. Jaya Jung MD Status: REG CLI Study: Chest PA and Lateral Date of Exam: 11/24/24 Exam# [id number] Ordering Dr: Jaya Jung MD PROCEDURE: CHEST [...] IMPRESSION: No acute airspace abnormality. Reading Location: [facility] CC: Dr. Jaya Jung MD Administration Clerk: Signed [facility] M100.678on 11-24-2024 SARS-CoV-2 (COVID-19) Ab IA Ql Normal Reference Range = Negative FLUABV+SARS-CoV-2+RSV Pnl Resp MEHDI+probe GeneXpert Instrument, PCR method Copy of report sent to Infection Control Printer [id number] 11/24/24 1613 VSICK. SARS-CoV-2 (COVID 19) Negative INFLUENZA A A Positive A INFLUENZA B Negative RSV PCR Negative INFLUENZAE A [facility] Comment on above: Performed By: #### L 501.4020, L100.0100, L501.5200, L300.8000, L501.3620, L500.4050, L3600.5100, L501.9520 #### [facility] [address] [place], [address] 12 Lead EKGon 10-30-2024 12 Lead EKG [facility] Cardiovascular Services [address] [place] [address] 12 Lead EKG 10/30/24 2213 MR#: [id number] Acct: [id number] Name: ITZ VEGAS Rep #: [id number] : 1945 79 From: Jonathan Gerard MD [...] COMPARISON REQUIRED DATA IS UNCONFIRMED Confirmed by MOUSTAPHA TRINH, JONATHAN ([id number]), video news editor UMU HARRIS ([id number]) on 11/01/2024 8:57:13 AM Referred By: Nora Solano Confirmed By: JONATHAN GERARD MD 11/01/24 0857 Date Jonathan Gerard MD CC: Dr. Nora Solano DO; Dr. Jaya Jung MD Signed [facility] [facility] 12 Lead EKG [facility] Cardiovascular Services [address] [place] [address] 12 Lead EKG 10/30/241951 MR#: [id number] Acct: [id number] Name: ITZ VEGAS Rep #: [id number] : 1945 79 From: Jonathan Gerard MD [...] ECG Confirmed by JONATHAN GERARD MD ([id number]), video news editor UMU HARRIS ([id number]) on 11/01/2024 9:01:11 AM Also confirmed by JONATHAN GERARD MD ([id number]), video news editor AURELIO TUCKER ([id number]) on 11/02/2024 8:30:24 AM Referred By: Nora Solano Confirmed By: JONATHAN GERARD MD 11/02/24 0830 Date Jonathan Gerard MD CC: Dr. Nora Solano DO; Dr. Jaya Jung MD Signed [facility] Basic Metabolic Profile (BMP )on 10-30-2024 BUN/CRE 31.1 RATIO High 10-20 [facility] Comment on above: Order Comment: 'TROP ' Serial specimen #1, #2 or #3: 1 Performed By: #### L 501.4020, L500.2500, L100.0100 ####[facility] [address] [place], [address] CA,Total 9.6 mg/dL Normal 8.5-10.1 [facility] Comment on above: Order Comment: 'TROP ' Serial specimen #1, #2 or #3: 1 Performed By: #### L 501.4020, L500.2500, L100.0100 ####[facility] [address] [place], [address] Chloride [Moles/Vol] 103 mmol/L Normal 98-107 [facility] Comment on above: Order Comment: 'TROP ' Serial specimen #1, #2 or #3: 1 Performed By: #### L 501.4020, L500.2500, L100.0100 ####[facility] [address] [place], [address] CO2 [Moles/Vol] 24.0 mmol/L Normal 21.0-32.0 [facility] Comment on above: Order Comment: 'TROP ' Serial specimen #1, #2 or #3: 1 Performed By: #### L 501.4020, L500.2500, L100.0100 ####[facility] [address] [place], [address] Creatinine [Mass/Vol] 0.77 mg/dL Normal 0.55-1.02 [facility] Comment on above: Order Comment: 'TROP ' Serial specimen #1, #2 or #3: 1 Result Comment: The validity of the calculated GFR GFRAA in patients over 70 years has not been determined. Clinical correlation is essential. Performed By: #### L 501.4020, L500.2500, L100.0100 ####[facility] [address] [place], [address] ECRCL 58.24 ml/min Normal [facility] Comment on above: Order Comment: 'TROP ' Serial specimen #1, #2 or #3: 1 Performed By: #### L 501.4020, L500.2500, L100.0100 ####[facility] [address] [place], [address] EST GFR - AA 93 mL/min Normal >60 [facility] Comment on above: Order Comment: 'TROP ' Serial specimen #1, #2 or #3: 1 Result Comment: Afri can [place] GFR Calc Performed By: #### L 501.4020, L500.2500, L100.0100 ####[facility] [address] [place], [address] GAP 11 Normal 5-15 [facility] Comment on above: Order Comment: 'TROP ' Serial specimen #1, #2 or #3: 1 Performed By: #### L 501.4020, L500.2500, L100.0100 ####[facility] [address] [place], [address] GFR/1.73 sq M.predicted among non-blacks MDRD (S/P/Bld) [Vol rate/Area] 77 mL/min/{1.73_m2} Normal >60 [facility] Comment on above: Order Comment: 'TROP ' Serial specimen #1, #2 or #3: 1 Result Comment: Non- GFR Calc Performed By: #### L 501.4020, L500.2500, L100.0100 ####[facility] [address] [place], [address] Glucose [Mass/Vol] 135 mg/dL High 74-106 [facility] Comment on above: Order Comment: 'TROP ' Serial specimen #1, #2 or #3: 1 Result Comment: Fast ing Glucose result greater than or equal to 126 mg/dL suggests DIABETES MELLITUS per A.D.A. criteria. Performed By: #### L 501.4020, L500.2500, L100.0100 ####[facility] [address] [place], [address] Potassium [Moles/Vol] 4.0 mmol/L Normal 3.5-5.1 [facility] Comment on above: Order Comment: 'TROP ' Serial specimen #1, #2 or #3: 1 Performed By: #### L 501.4020, L500.2500, L100.0100 ####[facility] [address] [place], [address] Sodium [Moles/Vol] 138 mmol/L Normal 136-145 [facility] Comment on above: Order Comment: 'TROP ' Serial specimen #1, #2 or #3: 1 Performed By: #### L 501.4020, L500.2500, L100.0100 ####[facility] [address] [place], [address] Urea nitrogen [Mass/Vol] 24 mg/dL High 7-18 [facility] Comment on above: Order Comment: 'TROP ' Serial specimen #1, #2 or #3: 1 Performed By: #### L 501.4020, L500.2500, L100.0100 ####[facility] [address] [place], [address] CBC W/Diff, Automatedon 02-0 2-5 Absolute Lymph 3.00 X10 3/uL Normal 0.83-4.51 [facility] Comment on above: Performed By: #### L 501.4020, L500.2500, L100.0100 ####[facility] [address] [place], [address] Absolute Neut 9.5 X10 3/uL High 2.0-7.7 [facility] Comment on above: Performed By: #### L 501.4020, L500.2500, L100.0100 ####[facility] [address] [place], [address] Basophils/100 WBC (Bld) 0.6 % Normal 0-1 [facility] Comment on above: Performed By: #### L 501.4020, L500.2500, L100.0100 ####[facility] [address] [place], [address] Eosinophils/100 WBC (Bld) 1.0 % Normal 0-5 [facility] Comment on above: Performed By: #### L 501.4020, L500.2500, L100.0100 ####[facility] [address] [place], [address] Erythrocyte distribution width (RBC) [Ratio] 14.8 % High 11.6-14.6 [facility] Comment on above: Performed By: #### L 501.4020, L500.2500, L100.0100 ####[facility] [address] [place], [address] Hematocrit (Bld) [Volume fraction] 43.3 % Normal 37-47 [facility] Comment on above: Performed By: #### L 501.4020, L500.2500, L100.0100 ####[facility] [address] [place], [address] Hemoglobin (Bld) [Mass/Vol] 14.6 g/dL Normal 12.0-15.0 [facility] Comment on above: Performed By: #### L 501.4020, L500.2500, L100.0100 ####[facility] [address] [place], [address] IG% 0.400 Normal 0.0-0.9 [facility] Comment on above: Result Comment: IG% - Immature Granulocytes (promyelocytes, myelocytes and metamyelocytes) > 1% indicates that a LEFT SHIFT is Present. Performed By: #### L 501.4020, L500.2500, L100.0100 ####[facility] [address] [place], [address] Lymphocytes/100 WBC (Bld) 21.5 % Normal 19-41 [facility] Comment on above: Performed By: #### L 501.4020, L500.2500, L100.0100 ####[facility] [address] [place], [address] MCH (RBC) [Entitic mass] 31.5 pg Normal 27.0-32.0 [facility] Comment on above: Performed By: #### L 501.4020, L500.2500, L100.0100 ####[facility] [address] [place], [address] MCHC (RBC) [Mass/Vol] 33.7 g/dL Normal 32-36 [facility] Comment on above: Performed By: #### L 501.4020, L500.2500, L100.0100 ####[facility] [address] [place], [address] MCV (RBC) [Entitic vol] 93.5 fL Normal 81-99 [facility] Comment on above: Performed By: #### L 501.4020, L500.2500, L100.0100 ####[facility] [address] [place], [address] Monocytes/100 WBC (Bld) 8.1 % Normal 0-10 [facility] Comment on above: Performed By: #### L 501.4020, L500.2500, L100.0100 ####[facility] [address] [place], [address] Neutrophils/100 WBC (Bld) 68.4 % Normal 47-70 [facility] Comment on above: Performed By: #### L 501.4020, L500.2500, L100.0100 ####[facility] [address] [place], [address] Nucleated RBC (Bld) [#/Vol] 0 10*3/uL Normal 0-5 [facility] Comment on above: Performed By: #### L 501.4020, L500.2500, L100.0100 ####[facility] [address] [place], [address] Platelet mean volume (Bld) [Entitic vol] 11.4 fL Normal 6.2-12.0 [facility] Comment on above: Performed By: #### L 501.4020, L500.2500, L100.0100 ####[facility] [address] [place], [address] Platelets (Bld) [#/Vol] 370 10*3/uL Normal 150-450 [facility] Comment on above: Performed By: #### L 501.4020, L500.2500, L100.0100 ####[facility] [address] [place], [address] RBC (Bld) [#/Vol] 4.63 10*6/uL Normal 4.2-5.4 [facility] Comment on above: Performed By: #### L 501.4020, L500.2500, L100.0100 ####[facility] [address] [place], [address] RDW SD 51.3 fl High 35.1-43.9 [facility] Comment on above: Performed By: #### L 501.4020, L500.2500, L100.0100 ####[facility] [address] [place], [address] WBC (Bld) [#/Vol] 13.9 10*3/uL High 4.4-11.0 [facility] Comment on above: Performed By: #### L 501.4020, L500.2500, L100.0100 ####[facility] [address] [place], [address] Chest PA and Lateralon 10-30 Chest PA and Lateral [facility] Imaging Services [address] [place] [id number] Chest PA and Lateral MR#: [id number] Acct: [id number] Name: ITZ VEGAS Rep #: [id number] : 1945 F 79 From: Mio Tate MD PCP: Dr. Jaya Jung MD Status: REG ER Study: Chest PA and Lateral Date of Exam: 10/30/24 Exam# [id number] Ordering Dr: Nora Solano DO PROCEDURE: CHEST [...] Nora Solano DO; Dr. Jaya Jung MD Administration Clerk: Signed Normal [facility] Emergency Department Summary on 10-30-2024 Emergency Department Summary [facility] Medical Records Department [address] [place] [address] Emergency Department Summary 10/30/24 MR#: [id number] Acct: [id number] Name: ITZ VEGAS Rep #: [id number] : 1945 79 From: Nora Solano DO [...] medication changes. No fever or chills reported. [facility] Medical History Anxiety MDD (major depressive disorder) [...] H 18 (more content not included)... Normal [facility] L501.4020on 10-30-2024 TROPONIN-I HS 16 pg/mL Normal 3.0-54.0 [facility] Comment on above: Order Comment: 'TROP ' Serial specimen #1, #2 or #3: 1 Result Comment: Plea se Note: New Test Units and Gender Specific Reference Ranges. For more information see Policy Stat Procedure [place] High Sensitivity Troponin (TNIH) and attachments. Performed By: #### L 501.4020, L500.2500, L100.0100 ####[facility] [address] [place], [address] 12 Lead EKG performed by [facility] on 10-20-2024 12 Lead EKG performed by [facility] [address] [place] [address] 12 Lead EKG performed by [facility] 10/20/24 1021 MR#: [id number] Acct: [id number] Name: ITZ VEGAS Rep #: [id number] : 1945 79 From: Jose Webster [employer]C Attending Dr: Jose Webster NP-C Status: DEP AMB Ordering Dr: Jose Webster [employer] Date: 10/20/24 [place] [facility] [place]: F C Admitted: [facility]12 Lead EKG performed by [facility] ECG Report Interpretation Sin us Bradycardia - occasional PAC # PACs = 1.-Nonspecific ST depression + Negative precordial T-waves -Nondiagnostic. ABNORMAL Electronically signed on 10/25/2024 at 09:59 by Jonathan Gerard Software Version 8610 10/25/24 1000 Date Jose Webster [employer] CC: Dr. Jaya Jung MD Date Dictated: 10/20/241020 Date Transcribed: 10/20/241020 Administration Clerk: JHR Signed Normal [facility] CBC W/Diff, Automatedon 09-29 Absolute Lymph 1.91 X10 3/uL Normal 0.83-4.51 [facility] Comment on above: Performed By: #### L 501.9520, L500.4050, L506.1000, L100.0100 ####[facility] [address] [place], [address] Absolute Neut 10.4 X10 3/uL High 2.0-7.7 [facility] Comment on above: Performed By: #### L 501.9520, L500.4050, L506.1000, L100.0100 ####[facility] [address] [place], [address] Basophils/100 WBC (Bld) 0.5 % Normal 0-1 [facility] Comment on above: Performed By: #### L 501.9520, L500.4050, L506.1000, L100.0100 ####[facility] [address] [place], [address] Eosinophils/100 WBC (Bld) 0.7 % Normal 0-5 [facility] Comment on above: Performed By: #### L 501.9520, L500.4050, L506.1000, L100.0100 ####[facility] [address] [place], [address] Erythrocyte distribution width (RBC) [Ratio] 14.7 % High 11.6-14.6 [facility] Comment on above: Performed By: #### L 501.9520, L500.4050, L506.1000, L100.0100 ####[facility] [address] [place], [address] Hematocrit (Bld) [Volume fraction] 44.8 % Normal 37-47 [facility] Comment on above: Performed By: #### L 501.9520, L500.4050, L506.1000, L100.0100 ####[facility] [address] [place], [address] Hemoglobin (Bld) [Mass/Vol] 14.6 g/dL Normal 12.0-15.0 [facility] Comment on above: Performed By: #### L 501.9520, L500.4050, L506.1000, L100.0100 ####[facility] [address] [place], [address] IG% 0.700 Normal 0.0-0.9 [facility] Comment on above: Result Comment: IG% - Immature Granulocytes (promyelocytes, myelocytes and metamyelocytes) > 1% indicates that a LEFT SHIFT is Present. Performed By: #### L 501.9520, L500.4050, L506.1000, L100.0100 ####[facility] [address] [place], [address] Lymphocytes/100 WBC (Bld) 13.9 % Low 19-41 [facility] Comment on above: Performed By: #### L 501.9520, L500.4050, L506.1000, L100.0100 ####[facility] [address] [place], [address] MCH (RBC) [Entitic mass] 30.6 pg Normal 27.0-32.0 [facility] Comment on above: Performed By: #### L 501.9520, L500.4050, L506.1000, L100.0100 ####[facility] [address] [place], [address] MCHC (RBC) [Mass/Vol] 32.6 g/dL Normal 32-36 [facility] Comment on above: Performed By: #### L 501.9520, L500.4050, L506.1000, L100.0100 ####[facility] [address] [place], [address] MCV (RBC) [Entitic vol] 93.9 fL Normal 81-99 [facility] Comment on above: Performed By: #### L 501.9520, L500.4050, L506.1000, L100.0100 ####[facility] [address] [place], [address] Monocytes/100 WBC (Bld) 8.9 % Normal 0-10 [facility] Comment on above: Performed By: #### L 501.9520, L500.4050, L506.1000, L100.0100 ####[facility] [address] [place], [address] Neutrophils/100 WBC (Bld) 75.3 % High 47-70 [facility] Comment on above: Performed By: #### L 501.9520, L500.4050, L506.1000, L100.0100 ####[facility] [address] [place], [address] Nucleated RBC (Bld) [#/Vol] 0 10*3/uL Normal 0-5 [facility] Comment on above: Performed By: #### L 501.9520, L500.4050, L506.1000, L100.0100 ####[facility] [address] [place], [address] Platelet mean volume (Bld) [Entitic vol] 10.6 fL Normal 6.2-12.0 [facility] Comment on above: Performed By: #### L 501.9520, L500.4050, L506.1000, L100.0100 ####[facility] [address] [place], [address] Platelets (Bld) [#/Vol] 322 10*3/uL Normal 150-450 [facility] Comment on above: Performed By: #### L 501.9520, L500.4050, L506.1000, L100.0100 ####[facility] [address] [place], [address] RBC (Bld) [#/Vol] 4.77 10*6/uL Normal 4.2-5.4 [facility] Comment on above: Performed By: #### L 501.9520, L500.4050, L506.1000, L100.0100 ####[facility] [address] [place], [address] RDW SD 51.6 fl High 35.1-43.9 [facility] Comment on above: Performed By: #### L 501.9520, L500.4050, L506.1000, L100.0100 ####[facility] [address] [place], [address] WBC (Bld) [#/Vol] 13.8 10*3/uL High 4.4-11.0 [facility] Comment on above: Performed By: #### L 501.9520, L500.4050, L506.1000, L100.0100 ####[facility] [address] [place], [address] Comprehensive Metabolic Prof ilon 10-20-2024 Albumin [Mass/Vol] 3.3 g/dL Normal 3.2-5.0 [facility] Comment on above: Performed By: #### L 501.9520, L500.4050, L506.1000, L100.0100 ####[facility] [address] [place], [address] Albumin/Globulin [Mass ratio] 0.9 {ratio} Normal 0.9-2.4 [facility] Comment on above: Performed By: #### L 501.9520, L500.4050, L506.1000, L100.0100 ####[facility] [address] [place], [address] ALK P 84 U/L Normal 45-117 [facility] Comment on above: Performed By: #### L 501.9520, L500.4050, L506.1000, L100.0100 ####[facility] [address] [place], [address] ALT [Catalytic activity/Vol] 26 U/L Normal 13-56 [facility] Comment on above: Performed By: #### L 501.9520, L500.4050, L506.1000, L100.0100 ####[facility] [address] [place], [address] AST [Catalytic activity/Vol] 13 U/L Low 15-37 [facility] Comment on above: Performed By: #### L 501.9520, L500.4050, L506.1000, L100.0100 ####[facility] [address] [place], [address] Bilirubin [Mass/Vol] 0.50 mg/dL Normal 0.20-1.00 [facility] Comment on above: Result Comment: For patients on eltrombopag therapy, use of Dimension [place] TBIL is not recommended. Performed By: #### L 501.9520, L500.4050, L506.1000, L100.0100 ####[facility] [address] [place], [address] BUN/CRE 17.6 RATIO Normal 10-20 [facility] Comment on above: Performed By: #### L 501.9520, L500.4050, L506.1000, L100.0100 ####[facility] [address] [place], [address] CA,Total 9.5 mg/dL Normal 8.5-10.1 [facility] Comment on above: Performed By: #### L 501.9520, L500.4050, L506.1000, L100.0100 ####[facility] [address] [place], [address] Chloride [Moles/Vol] 102 mmol/L Normal 98-107 [facility] Comment on above: Performed By: #### L 501.9520, L500.4050, L506.1000, L100.0100 ####[facility] [address] [place], [address] CO2 [Moles/Vol] 28.0 mmol/L Normal 21.0-32.0 [facility] Comment on above: Performed By: #### L 501.9520, L500.4050, L506.1000, L100.0100 ####[facility] [address] [place], [address] Creatinine [Mass/Vol] 0.68 mg/dL Normal 0.55-1.02 [facility] Comment on above: Result Comment: The validity of the calculated GFR GFRAA in patients over 70 years has not been determined. Clinical correlation is essential. Performed By: #### L 501.9520, L500.4050, L506.1000, L100.0100 ####[facility] [address] [place], [address] EST GFR - AA 107 mL/min Normal >60 [facility] Comment on above: Result Comment: Afri can [place] GFR Calc Performed By: #### L 501.9520, L500.4050, L506.1000, L100.0100 ####[facility] [address] [place], [address] GAP 8 Normal 5-15 [facility] Comment on above: Performed By: #### L 501.9520, L500.4050, L506.1000, L100.0100 ####[facility] [address] [place], [address] GFR/1.73 sq M.predicted among non-blacks MDRD (S/P/Bld) [Vol rate/Area] 89 mL/min/{1.73_m2} Normal >60 [facility] Comment on above: Result Comment: Non- GFR Calc Performed By: #### L 501.9520, L500.4050, L506.1000, L100.0100 ####[facility] [address] [place], [address] Globulin (S) [Mass/Vol] 3.8 g/dL Normal 2.2-4.2 [facility] Comment on above: Performed By: #### L 501.9520, L500.4050, L506.1000, L100.0100 ####[facility] [address] [place], [address] Glucose [Mass/Vol] 108 mg/dL High 74-106 [facility] Comment on above: Result Comment: Fast ing Glucose result from 100 to 125 mg/dL suggests IMPAIRED HOMEOSTASIS per A.D.A. criteria. Performed By: #### L 501.9520, L500.4050, L506.1000, L100.0100 ####[facility] [address] [place], [address] Potassium [Moles/Vol] 4.8 mmol/L Normal 3.5-5.1 [facility] Comment on above: Performed By: #### L 501.9520, L500.4050, L506.1000, L100.0100 ####[facility] [address] [place], [address] Sodium [Moles/Vol] 137 mmol/L Normal 136-145 [facility] Comment on above: Performed By: #### L 501.9520, L500.4050, L506.1000, L100.0100 ####[facility] [address] [place], [address] T PROT 7.1 g/dL Normal 6.4-8.2 [facility] Comment on above: Performed By: #### L 501.9520, L500.4050, L506.1000, L100.0100 ####[facility] [address] [place], [address] Urea nitrogen [Mass/Vol] 12 mg/dL Normal 7-18 [facility] Comment on above: Performed By: #### L 501.9520, L500.4050, L506.1000, L100.0100 ####[facility] [address] [place], [address] Office Visit Reporton 2024 Office Visit Report [facility] [address] [place] [address] OFFICE VISIT Date of Service: 10/20/24 MR#: [id number] Acct: [id number] Patient: ITZ VEGAS Rep #: [id number] : 1945 Provider: PRABHJOT chavira Age/Sex: 79/F Location[place] [facility] Status: Signed Intake Vital Signs 10/11/24 10:44 Height 5 ft 3 in Weight: 182 lb Intake Visit Reasons: s/p DCCV Allergies codeine Allergy (Verified 09/15/24 13:03) Rash Penicillins (PCN) Allergy (Verified 09/15/24 13:03) Rash Have you fallen in the past year?: No Nurse's Note: Pt in office for post DCCV EKG. EKG placed on [facility] desk. Pt aware office will call with further recommendations. Assessment and Plan Assessment and Plan Orders: Orders 12 Lead EKG performed by [facility] 10/20/24 I48.92 - Unspecified atrial flutter, R00.1 - Bradycardia, unspecified, Z79.899 - Other breakfast server (current) drug therapy Clinical Quality Measures Falls Risk Screening/Assistive Devices Have you fallen in the past year?: No 10/27/24 1302 Date Jose H Roof [employer] Cosigner Signature: Date (if applicable) CC: Normal [facility] Thyroid Stim Hormone (TSH)on 10-20-2024 TSH 1.510 uIU/mL Normal 0.358-3.740 [facility] Comment on above: Performed By: #### L 501.9520, L500.4050, L506.1000, L100.0100 ####[facility] [address] [place], [address] Vitamin D,25 Hydroxyon 10-20 Vitamin D 25-OH 38.4 ng/mL Normal [facility] Comment on above: Result Comment: Akua min D 25(OH) Status Range Deficiency <20 ng/mL (50nmol/L) Insufficiency 20 - 30 ng/mL (50 - 75 nmol/L) Sufficiency 30 - 100 ng/mL (75 - 250 nmol/L) Toxicity >100 ng/mL (>250 nmol/L) Performed By: #### L 501.9520, L500.4050, L506.1000, L100.0100 ####[facility] [address] [place], [address] Procedure Reporton Procedure Report [facility] Records Department [address] [address] Procedure Report 10/11/24 1305 MR#: [id number] Acct: [id number] Name: ITZ VEGAS Rep #: [id number] : 1945 79 From: Jonathan Gerard MD PCP: Dr. Jaya Jung MD Status:[facility] Location: [facility] Problems Associated Problem List Diagnoses (1) Atrial flutter with rapid ventricular response: Non-invasive Procedural Procedure Information Date of Procedure: 10/11/24 Pre-Procedure Diagnosis: Atrial fibrillation Post-Procedure Diagnosis: Same Procedure Performed:: DC cardioversion salesperson burial plots: No Procedure Time Out: 12:20 Procedure Start [...] MD; Dr. Jaya Jung MD Signed Normal [facility] Procedure Report [facility] Department [address] [place] [address] Procedure Report 10/11/24 1254 MR#: [id number] Acct: [id number] Name: ITZ VEGAS Rep #: [id number] : 1945 79 From: Jens Christine DO PCP: Dr. Jaya Jung MD Status:REG [facility] Location: [facility] Procedures Pulmonary Pulmonary Procedures /Diagnostic Testin Con Sedation Non-invasive Procedural Procedure Information Description of procedure: CONSCIOUS SEDATION REPORT DATE OF SERVICE: October 11, 2024 BRIEF HISTORY OF PRESENT ILLNESS: The patient is a 79-year-old female who presented to [facility] to undergo an elective outpatient cardioversion [...] DO; Dr. Jaya Jung MD Signed Normal [facility] Basic Metabolic Profile (BMP )on 10-05-2024 BUN/CRE 19.6 RATIO Normal 10-20 [facility] Comment on above: Performed By: #### L 501.4020, L100.0100, L501.5200, L300.8000, L501.3620, L500.4050, L3600.5100, L501.9520 #### [facility] [address] [place], [address] CA,Total 9.9 mg/dL Normal 8.5-10.1 [facility] Comment on above: Performed By: #### L 501.4020, L100.0100, L501.5200, L300.8000, L501.3620, L500.4050, L3600.5100, L501.9520 #### [facility] [address] [place], [address] Chloride [Moles/Vol] 103 mmol/L Normal 98-107 [facility] Comment on above: Performed By: #### L 501.4020, L100.0100, L501.5200, L300.8000, L501.3620, L500.4050, L3600.5100, L501.9520 #### [facility] [address] [place], [address] CO2 [Moles/Vol] 30.0 mmol/L Normal 21.0-32.0 [facility] Comment on above: Performed By: #### L 501.4020, L100.0100, L501.5200, L300.8000, L501.3620, L500.4050, L3600.5100, L501.9520 #### [facility] [address] [place], [address] Creatinine [Mass/Vol] 0.82 mg/dL Normal 0.55-1.02 [facility] Comment on above: Result Comment: The validity of the calculated GFR GFRAA in patients over 70 years has not been determined. Clinical correlation is essential. Performed By: #### L 501.4020, L100.0100, L501.5200, L300.8000, L501.3620, L500.4050, L3600.5100, L501.9520 #### [facility] [address] [place], [address] EST GFR - AA 87 mL/min Normal >60 [facility] Comment on above: Result Comment: Afri can [place] GFR Calc Performed By: #### L 501.4020, L100.0100, L501.5200, L300.8000, L501.3620, L500.4050, L3600.5100, L501.9520 #### [facility] [address] [place], [address] GAP 5 Normal 5-15 [facility] Comment on above: Performed By: #### L 501.4020, L100.0100, L501.5200, L300.8000, L501.3620, L500.4050, L3600.5100, L501.9520 #### [facility] [address] [place], [address] GFR/1.73 sq M.predicted among non-blacks MDRD (S/P/Bld) [Vol rate/Area] 72 mL/min/{1.73_m2} Normal >60 [facility] Comment on above: Result Comment: Non- GFR Calc Performed By: #### L 501.4020, L100.0100, L501.5200, L300.8000, L501.3620, L500.4050, L3600.5100, L501.9520 #### [facility] [address] [place], [address] Glucose [Mass/Vol] 119 mg/dL High 74-106 [facility] Comment on above: Result Comment: Fast ing Glucose result from 100 to 125 mg/dL suggests IMPAIRED HOMEOSTASIS per A.D.A. criteria. Performed By: #### L 501.4020, L100.0100, L501.5200, L300.8000, L501.3620, L500.4050, L3600.5100, L501.9520 #### [facility] [address] [place], [address] Potassium [Moles/Vol] 4.3 mmol/L Normal 3.5-5.1 [facility] Comment on above: Performed By: #### L 501.4020, L100.0100, L501.5200, L300.8000, L501.3620, L500.4050, L3600.5100, L501.9520 #### [facility] [address] [place], [address] Sodium [Moles/Vol] 138 mmol/L Normal 136-145 [facility] Comment on above: Performed By: #### L 501.4020, L100.0100, L501.5200, L300.8000, L501.3620, L500.4050, L3600.5100, L501.9520 #### [facility] [address] [place], [address] Urea nitrogen [Mass/Vol] 16 mg/dL Normal 7-18 [facility] Comment on above: Performed By: #### L 501.4020, L100.0100, L501.5200, L300.8000, L501.3620, L500.4050, L3600.5100, L501.9520 #### [facility] [address] [facility] [place], [address] Chest PA and Lateralon 10-05 Chest PA and Lateral [facility] Imaging Services [address] [place] [address] Chest PA and Lateral MR#: [id number] Acct: [id number] Name: ITZ VEGAS Rep #: [id number] : 1945 F 79 From: Dayana anderson MD PCP: Dr. Jaya Jung MD Status: PRE [facility] Study: Chest PA and Lateral Date of Exam: 10/05/24 Exam# [id number] Ordering Dr: Rosalind Moses PA [id number] HISTORY: For DCCV. TECHNIQUE: XR Chest 2 [...] CC: Dr. Jaya Jung MD; RAFAEL Fiore Administration Clerk: Signed Normal [facility] Cardiology Visit Reporton Cardiology Visit Report [facility] [address] [place] [address] OFFICE VISIT Date of Service: 09/15/24 MR#: [id number] Acct: [id number] Name: ITZ VEGAS Rep #: [id number] : 1945 Provider: RAFAEL Her Age/Sex: 79/F Location: [facility] Status: Signed HPI HPI History of [...] is controlled. She is living at [facility]. Pt is not aware of her Atrial [...] 96 Intake Visit Reasons: 6 W FU Thread Weaver Required: No Is patient in pain?: No [...] Family History (more content not included)... Normal [facility] MR/BMS.BPon 09-14-2024 MR/BMS.BP [address], [place] [address] OFFICE VISIT Date of Service: 09/14/24 MR#: [id number] Acct: [id number] Name: ITZ VEGAS Rep #: [id number] : 1945 Provider: Dr. Moe Dexter se, DO Age/Sex: 79/F Location: [facility] Status: Signed Intake Vital Signs 06/15/24 14:20 [...] super. Has been really enjoying living at [place] in the assisted living facility. Was happy [...] disorder, single (more content not included)... Normal [facility] Non-Auto Body Repairer Cytology Reporton Non-Auto Body Repairer Cytology Report . Pathology Reports Accession: Collected Date/Time: Received Date/Time: Pathologist: [id number] 08/31/2024 11:00 JORGE 09/02/2024 10:01 MD [facility] Non-Auto Body Repairer Cytology Report CLINICAL INFORMATION: Bladder Cancer DIAGNOSTIC [...] Electronically Signed by Pathology Report verified by [facility] Screened by: JOSE RM Electronically signed by GRACE VIZCARRA MD Sign-Out Date: 09/05/2024 10:27 Performing Lab: [facility], [address] [place] [address] Pathology Dept Disclaimer If ancillary studies were utilized, the following Laboratory Developed Test (LDT) disclaimer will apply: Under CLIA requirements, [facility] Laboratory is qualified to perform high complexity testing. For all ancillary stains, positive and negative controls stain appropriately. Performance characteristics of immunohistochemical and chromogenic in-situ hybridization tests have been determined by [facility] Laboratory. These tests are used for clinical purposes, They should not be regarded as investigational or for research. Normal [facility] Echo Complete W/ Contraston 08-15-2024 Echo Complete W/ Contrast [facility] [address] [place] [address] Echo Complete W/ Contrast 08/15/24 1407 MR#: [id number] Acct: [id number] Name: ITZ VEGAS Rep #: [id number] : 1945 78 From: Jonathan Gerard MD Attending Dr: Cabrera Hale [employer] Status: [facility] Dario Ordering Dr: Cabrera Hale [employer] Date: 08/15/24 Location: [facility] Sex: F C Admitted: Reason For Study: [...] Cabrera Hale Performed By: Dipak Jesus RCS 08/15/241724 Date Jonathan Gerard MD CC: PRABHJOT Hale; Dr. Jaya Jung MD Date Dictated: 08/15/24 1407 Date Transcribed: 08/15/241724 Administration Clerk: Signed [facility] 12 Lead EKG performed by [facility] on 08-02-2024 12 Lead EKG performed by [facility] [address] [place] [address] 12 Lead EKG performed by [facility] 08/02/241513 MR#: [id number] Acct: [id number] Name: ITZ VEGAS Rep #: [id number] : 1945 78 From: Cabrera RICK Attending Dr: Cabrera Hale, [employer] Status: DEP A MB Ordering Dr: Cabrera Hale NP [employer] Date: 08/02/24 Location: [facility] Sex: F C Admitted: [facility]/12 Lead EKG performed by [facility] ECG Report Interpretation Atr ial flutter-Electronically signed on 08/11/2024 at 08:02 by Jonathan Gerard Software Version 8610 08/11/2404 Date Cabrera Hale NP [employer] CC: Dr. Jaya Jung MD Date Dictated: 08/02/241513 Date Transcribed: 08/02/241513 Administration Clerk: JADEN Signed Normal [facility] Cardiology Visit Reporton Cardiology Visit Report [facility] [address] [place], [place] [address] OFFICE VISIT Date of Service: 08/02/24 MR#: [id number] Acct: [id number] Name: ITZ VEGAS Rep #: [id number] : 1945 Provider: PRABHJOT escudero Age/Sex: 78/F Location: [facility] Status: Signed HPI HPI History of [...] her PFT. She is living at [facility]. From a cardiac standpoint, the patient is [...] 96 Intake Visit Reasons: 8 M FU Thread Weaver Required: No Is patient in pain?: No [...] @ 15 (more content not included)... Normal [facility] Myoglobin, Serumon 4 Myoglobin, Ser 30 ng/mL Normal 25-58 [facility] Comment on above: Order Comment: Speci men Comment: A duplicate report has been generateddue to demographicSpecimen Comment: updates. Result Comment: Perf ormed at: [facility] [id number] Bellows Assembler: Sergio Pro PhD, Phone: [phone] Performed By: #### L 501.4020, L100.0100, L501.5200, L300.8000, L501.3620, L500.4050, L3600.5100, L501.9520 ####[facility] [address] [place], [address] L3300.0940on 07-17-2024 VIT D,25 HYDROX Normal [facility] Comment on above: Result Comment: TEST RESULTS LIMITS Vitamin D, 25-Hydroxy 32.8 ng/mL 30.0-100.0 Vitamin D deficiency has been defined by the [place] of Medicine and an Endocrine Society practice guideline as a level of serum 25-OH vitamin D less than 20 ng/mL (1,2). The Endocrine Society went on to further define vitamin D insufficiency as a level between 21 and 29 ng/mL (2). 1. IOM ([place] of Medicine). 2010. Dietary reference intakes for calcium and D. [place]: The National Academies Press. 2. Rufus MF, Enoch NC, Ryan CASSIDY, et al. Evaluation, treatment, and prevention of vitamin D deficiency: an Endocrine Society clinical practice guideline. JCEM. 2011 Mar; 96(7):1911-30. TESTING PERFORMED AT [facility]. ORIGINAL REPORT ON FILE IN LAB CONTAINS ADDITIONAL TEST SITE INFORMATION. Performed By: #### L 501.4020, L100.0100, L501.5200, L300.8000, L501.3620, L500.4050, L3600.5100, L501.9520 #### [facility] [address] [place], [address] L5000.0010on 07-16-2024 BNP Normal [facility] Comment on above: Result Comment: TEST RESULTS LIMITS B-Type Natriuretic Peptide 110.6 High pg/mL 0.0-100.0 Siemens ADVIA Centaur XP methodology TESTING PERFORMED AT [facility]. ORIGINAL REPORT ON FILE IN LAB CONTAINS ADDITIONAL TEST SITE INFORMATION. Performed By: #### L 5000.0010 #### [facility] [address] [place], [address] CBC W/Diff, Automatedon 06-28 Absolute Lymph 2.43 X10 3/uL Normal 0.83-4.51 [facility] Comment on above: Performed By: #### L 501.4020, L100.0100, L501.5200, L300.8000, L501.3620, L500.4050, L3600.5100, L501.9520 #### [facility] [address] [place], [address] Absolute Neut 14.0 X10 3/uL High 2.0-7.7 [facility] Comment on above: Performed By: #### L 501.4020, L100.0100, L501.5200, L300.8000, L501.3620, L500.4050, L3600.5100, L501.9520 #### [facility] [address] [place], [address] Basophils/100 WBC (Bld) 0.4 % Normal 0-1 [facility] Comment on above: Performed By: #### L 501.4020, L100.0100, L501.5200, L300.8000, L501.3620, L500.4050, L3600.5100, L501.9520 #### [facility] [address] [place], [address] Eosinophils/100 WBC (Bld) 0.6 % Normal 0-5 [facility] Comment on above: Performed By: #### L 501.4020, L100.0100, L501.5200, L300.8000, L501.3620, L500.4050, L3600.5100, L501.9520 #### [facility] [address] [place], [address] Erythrocyte distribution width (RBC) [Ratio] 15.4 % High 11.6-14.6 [facility] Comment on above: Performed By: #### L 501.4020, L100.0100, L501.5200, L300.8000, L501.3620, L500.4050, L3600.5100, L501.9520 #### [facility] [address] [place], [address] Hematocrit (Bld) [Volume fraction] 43.0 % Normal 37-47 [facility] Comment on above: Performed By: #### L 501.4020, L100.0100, L501.5200, L300.8000, L501.3620, L500.4050, L3600.5100, L501.9520 #### [facility] [address] [place], [address] Hemoglobin (Bld) [Mass/Vol] 13.6 g/dL Normal 12.0-15.0 [facility] Comment on above: Performed By: #### L 501.4020, L100.0100, L501.5200, L300.8000, L501.3620, L500.4050, L3600.5100, L501.9520 #### [facility] [address] [place], [address] IG% 0.400 Normal 0.0-0.9 [facility] Comment on above: Result Comment: IG% - Immature Granulocytes (promyelocytes, myelocytes and metamyelocytes) > 1% indicates that a LEFT SHIFT is Present. Performed By: #### L 501.4020, L100.0100, L501.5200, L300.8000, L501.3620, L500.4050, L3600.5100, L501.9520 #### [facility] [address] [place], [address] Lymphocytes/100 WBC (Bld) 13.7 % Low 19-41 [facility] Comment on above: Performed By: #### L 501.4020, L100.0100, L501.5200, L300.8000, L501.3620, L500.4050, L3600.5100, L501.9520 #### [facility] [address] [place], [address] MCH (RBC) [Entitic mass] 29.1 pg Normal 27.0-32.0 [facility] Comment on above: Performed By: #### L 501.4020, L100.0100, L501.5200, L300.8000, L501.3620, L500.4050, L3600.5100, L501.9520 #### [facility] [address] [place], [address] MCHC (RBC) [Mass/Vol] 31.6 g/dL Low 32-36 [facility] Comment on above: Performed By: #### L 501.4020, L100.0100, L501.5200, L300.8000, L501.3620, L500.4050, L3600.5100, L501.9520 #### [facility] [address] [place], [address] MCV (RBC) [Entitic vol] 92.1 fL Normal 81-99 [facility] Comment on above: Performed By: #### L 501.4020, L100.0100, L501.5200, L300.8000, L501.3620, L500.4050, L3600.5100, L501.9520 #### [facility] [address] [place], [address] Monocytes/100 WBC (Bld) 6.1 % Normal 0-10 [facility] Comment on above: Performed By: #### L 501.4020, L100.0100, L501.5200, L300.8000, L501.3620, L500.4050, L3600.5100, L501.9520 #### [facility] [address] [place], [address] Neutrophils/100 WBC (Bld) 78.8 % High 47-70 [facility] Comment on above: Performed By: #### L 501.4020, L100.0100, L501.5200, L300.8000, L501.3620, L500.4050, L3600.5100, L501.9520 #### [facility] [address] [place], [address] Nucleated RBC (Bld) [#/Vol] 0 10*3/uL Normal 0-5 [facility] Comment on above: Performed By: #### L 501.4020, L100.0100, L501.5200, L300.8000, L501.3620, L500.4050, L3600.5100, L501.9520 #### [facility] [address] [place], [address] Platelet mean volume (Bld) [Entitic vol] 10.4 fL Normal 6.2-12.0 [facility] Comment on above: Performed By: #### L 501.4020, L100.0100, L501.5200, L300.8000, L501.3620, L500.4050, L3600.5100, L501.9520 #### [facility] [address] [place], [address] Platelets (Bld) [#/Vol] 398 10*3/uL Normal 150-450 [facility] Comment on above: Performed By: #### L 501.4020, L100.0100, L501.5200, L300.8000, L501.3620, L500.4050, L3600.5100, L501.9520 #### [facility] [address] [place], [address] RBC (Bld) [#/Vol] 4.67 10*6/uL Normal 4.2-5.4 [facility] Comment on above: Performed By: #### L 501.4020, L100.0100, L501.5200, L300.8000, L501.3620, L500.4050, L3600.5100, L501.9520 #### [facility] [address] [place], [address] RDW SD 52.1 fl High 35.1-43.9 [facility] Comment on above: Performed By: #### L 501.4020, L100.0100, L501.5200, L300.8000, L501.3620, L500.4050, L3600.5100, L501.9520 #### [facility] [address] [place], [address] WBC (Bld) [#/Vol] 17.8 10*3/uL High 4.4-11.0 [facility] Comment on above: Performed By: #### L 501.4020, L100.0100, L501.5200, L300.8000, L501.3620, L500.4050, L3600.5100, L501.9520 #### [facility] [address] [place], [address] CPK Total, Creatine Kinaseon 07-12-2024 CPK TOTAL 48 U/L Normal 26-192 [facility] Comment on above: Order Comment: 1 Performed By: #### L 501.4020, L100.0100, L501.5200, L300.8000, L501.3620, L500.4050, L3600.5100, L501.9520 #### [facility] [address] [place], [address] Comprehensive Metabolic Prof ilon 07-12-2024 Albumin [Mass/Vol] 3.4 g/dL Normal 3.2-5.0 [facility] Comment on above: Order Comment: 1 Performed By: #### L 501.4020, L100.0100, L501.5200, L300.8000, L501.3620, L500.4050, L3600.5100, L501.9520 #### [facility] [address] [place], [address] Albumin/Globulin [Mass ratio] 0.9 {ratio} Normal 0.9-2.4 [facility] Comment on above: Order Comment: 1 Performed By: #### L 501.4020, L100.0100, L501.5200, L300.8000, L501.3620, L500.4050, L3600.5100, L501.9520 #### [facility] [address] [place], [address] ALK P 123 U/L High 45-117 [facility] Comment on above: Order Comment: 1 Performed By: #### L 501.4020, L100.0100, L501.5200, L300.8000, L501.3620, L500.4050, L3600.5100, L501.9520 #### [facility] [address] [place], [address] ALT [Catalytic activity/Vol] 22 U/L Normal 13-56 [facility] Comment on above: Order Comment: 1 Performed By: #### L 501.4020, L100.0100, L501.5200, L300.8000, L501.3620, L500.4050, L3600.5100, L501.9520 #### [facility] [address] [place], [address] AST [Catalytic activity/Vol] 11 U/L Low 15-37 [facility] Comment on above: Order Comment: 1 Performed By: #### L 501.4020, L100.0100, L501.5200, L300.8000, L501.3620, L500.4050, L3600.5100, L501.9520 #### [facility] [address] [place], [address] Bilirubin [Mass/Vol] 0.50 mg/dL Normal 0.20-1.00 [facility] Comment on above: Order Comment: 1 Result Comment: For patients on eltrombopag therapy, use of Dimension [place] TBIL is not recommended. Performed By: #### L 501.4020, L100.0100, L501.5200, L300.8000, L501.3620, L500.4050, L3600.5100, L501.9520 #### [facility] [address] [place], [address] BUN/CRE 23.8 RATIO High 10-20 [facility] Comment on above: Order Comment: 1 Performed By: #### L 501.4020, L100.0100, L501.5200, L300.8000, L501.3620, L500.4050, L3600.5100, L501.9520 #### [facility] [address] [place], [address] CA,Total 9.6 mg/dL Normal 8.5-10.1 [facility] Comment on above: Order Comment: 1 Performed By: #### L 501.4020, L100.0100, L501.5200, L300.8000, L501.3620, L500.4050, L3600.5100, L501.9520 #### [facility] [address] [place], [address] Chloride [Moles/Vol] 102 mmol/L Normal 98-107 [facility] Comment on above: Order Comment: 1 Performed By: #### L 501.4020, L100.0100, L501.5200, L300.8000, L501.3620, L500.4050, L3600.5100, L501.9520 #### [facility] [address] [place], [address] CO2 [Moles/Vol] 29.0 mmol/L Normal 21.0-32.0 [facility] Comment on above: Order Comment: 1 Performed By: #### L 501.4020, L100.0100, L501.5200, L300.8000, L501.3620, L500.4050, L3600.5100, L501.9520 #### [facility] [address] [place], [address] Creatinine [Mass/Vol] 0.63 mg/dL Normal 0.55-1.02 [facility] Comment on above: Order Comment: 1 Result Comment: The validity of the calculated GFR GFRAA in patients over 70 years has not been determined. Clinical correlation is essential. Performed By: #### L 501.4020, L100.0100, L501.5200, L300.8000, L501.3620, L500.4050, L3600.5100, L501.9520 #### [facility] [address] [place], [address] EST GFR - AA 118 mL/min Normal >60 [facility] Comment on above: Order Comment: 1 Result Comment: Afri can [place] GFR Calc Performed By: #### L 501.4020, L100.0100, L501.5200, L300.8000, L501.3620, L500.4050, L3600.5100, L501.9520 #### [facility] [address] [place], [address] GAP 7 Normal 5-15 [facility] Comment on above: Order Comment: 1 Performed By: #### L 501.4020, L100.0100, L501.5200, L300.8000, L501.3620, L500.4050, L3600.5100, L501.9520 #### [facility] [address] [place], [address] GFR/1.73 sq M.predicted among non-blacks MDRD (S/P/Bld) [Vol rate/Area] 97 mL/min/{1.73_m2} Normal >60 [facility] Comment on above: Order Comment: 1 Result Comment: Non- GFR Calc Performed By: #### L 501.4020, L100.0100, L501.5200, L300.8000, L501.3620, L500.4050, L3600.5100, L501.9520 #### [facility] [address] [place], [address] Globulin (S) [Mass/Vol] 3.8 g/dL Normal 2.2-4.2 [facility] Comment on above: Order Comment: 1 Performed By: #### L 501.4020, L100.0100, L501.5200, L300.8000, L501.3620, L500.4050, L3600.5100, L501.9520 #### [facility] [address] [place], [address] Glucose [Mass/Vol] 122 mg/dL High 74-106 [facility] Comment on above: Order Comment: 1 Result Comment: Fast ing Glucose result from 100 to 125 mg/dL suggests IMPAIRED HOMEOSTASIS per A.D.A. criteria. Performed By: #### L 501.4020, L100.0100, L501.5200, L300.8000, L501.3620, L500.4050, L3600.5100, L501.9520 #### [facility] [address] [place], [address] Potassium [Moles/Vol] 3.8 mmol/L Normal 3.5-5.1 [facility] Comment on above: Order Comment: 1 Performed By: #### L 501.4020, L100.0100, L501.5200, L300.8000, L501.3620, L500.4050, L3600.5100, L501.9520 #### [facility] [address] [place], [address] Sodium [Moles/Vol] 138 mmol/L Normal 136-145 [facility] Comment on above: Order Comment: 1 Performed By: #### L 501.4020, L100.0100, L501.5200, L300.8000, L501.3620, L500.4050, L3600.5100, L501.9520 #### [facility] [address] [place], [address] T PROT 7.2 g/dL Normal 6.4-8.2 [facility] Comment on above: Order Comment: 1 Performed By: #### L 501.4020, L100.0100, L501.5200, L300.8000, L501.3620, L500.4050, L3600.5100, L501.9520 #### [facility] [address] [place], [address] Urea nitrogen [Mass/Vol] 15 mg/dL Normal 7-18 [facility] Comment on above: Order Comment: 1 Performed By: #### L 501.4020, L100.0100, L501.5200, L300.8000, L501.3620, L500.4050, L3600.5100, L501.9520 #### [facility] [address] [place], [address] D-Dimer Quantitative (DVT/PE )on 07-12-2024 D-DIMER QUANT 0.42 FEU/ug/m Normal 0.27-0.49 [facility] Comment on above: Result Comment: NORM AL D-Dimer level (<0.50) indicates no DVT or PE. Performed By: #### L 501.4020, L100.0100, L501.5200, L300.8000, L501.3620, L500.4050, L3600.5100, L501.9520 #### [facility] [address] [place], [address] HIP, UNI W/ Pelvis 2-3 Views on 07-12-2024 HIP, UNI W/ Pelvis 2-3 Views [facility] Imaging Services [address] [place] [address] HIP, UNI W/ Pelvis 2-3 Views MR#: [id number] Acct: [id number] Name: ITZ VEGAS Rep #: [id number] : 1945 F 78 From: Honorio goodson MD PCP: Dr. Jaya Jung MD Status: REG CLI Study: HIP, UNI W/ Pelvis 2-3 Views Date of Exam: Exam# [id number] Ordering Dr: Karl Villar MD [id number] STUDY: X-RAY - PELVIS AND LEFT HIP [...] Karl Villar MD; Dr. Jaya Jung MD Administration Clerk: Signed Normal [facility] L501.4020on 07-12-2024 TROPONIN-I HS 12 pg/mL Normal 3.0-54.0 [facility] Comment on above: Order Comment: 1 Result Comment: Plea se Note: New Test Units and Gender Specific Reference Ranges. For more information see Policy Stat Procedure [place] High Sensitivity Troponin (TNIH) and attachments. Performed By: #### L 501.4020, L100.0100, L501.5200, L300.8000, L501.3620, L500.4050, L3600.5100, L501.9520 #### [facility] [address] [place], [place], [id number] Magnesiumon 07-12-2024 Magnesium [Mass/Vol] 1.6 mg/dL Normal 1.6-2.6 [facility] Comment on above: Order Comment: 1 Performed By: #### L 501.4020, L100.0100, L501.5200, L300.8000, L501.3620, L500.4050, L3600.5100, L501.9520 #### [facility] [address] [place], [address] Thyroid Stim Hormone (TSH)on 07-12-2024 TSH 1.560 uIU/mL Normal 0.358-3.740 [facility] Comment on above: Order Comment: 1 Performed By: #### L 501.4020, L100.0100, L501.5200, L300.8000, L501.3620, L500.4050, L3600.5100, L501.9520 ####[facility] [id number] [place], [address] MR/JACOB.on 06-15-2024 MR/JACOB. [address], [address] [place], [place] [address] OFFICE VISIT Date of Service: 06/15/24 MR#: [id number] Acct: [id number] Name: ASCENCIONITZ L Rep #: [id number] : 1945 Provider: Dr. Moe Dexter se, DO Age/Sex: 78/F Location[place] [facility] Status: Signed Intake Vital Signs 03/30/24 15:03 [...] left her house and moved in to [facility] at the beginning of April. Her does live in the memory care unit at [facility] as well. Despite this, she has actually not been spending as much time at the memory care unit because she is participating in all the activities at [place]. She made this decision and told her children the decision after she had already decided. Reports that she was feeling lonely and depressed living at her home in [place]. She has been very happy with moving. [...] pain, nevaeh (more content not included)... Normal [facility] Thoracic Spine 2 Viewson Thoracic Spine 2 Views [facility] Imaging Services [address] [place], [place] [id number] Thoracic Spine 2 Views MR#: [id number] Acct: [id number] Name: ITZ VEGAS Rep #: [id number] : 1945 F 78 From: Randolph Diggs MD PCP: Dr. Jaya Jung MD Status: REG CLI Study: Thoracic Spine 2 Views Date of Exam: 05/23/24 Exam# [id number] Ordering Dr: Jaya Jung MD [id number] EXAM: XR THORACIC SPINE, 2 VIEWS CLINICAL [...] EDT , CC: Dr. Jaya Jung MD Administration Clerk: Signed Normal [facility] Basophil percentageOrdered B y: Dr. Jung on 03-05-2023 Chloride [Moles/Vol] 101 mmol/L 98-107 [facility] Glucose [Mass/Vol] 127 mg/dL 74-106 [facility] Comment on above: Fasting Glucose resu lt greater than or equal to 126 mg/dL suggests DIABETES MELLITUS per A.D.A. criteria. Potassium [Moles/Vol] 4.1 mmol/L 3.5-5.1 [facility] Sodium [Moles/Vol] 140 mmol/L 136-145 [facility] - Chemistry and C hemistry - challengeOrdered By: Dr. Jung on 03-05-2023 CO2 [Moles/Vol] 33.0 mmol/L 21.0-32.0 [facility] Urea nitrogen/Creatinine [Mass ratio] 22.2 mg/mg 10-20 [facility] No Panel InformationOrdered By: Dr. Jung on 03-05-2023 Estimated GFR (MDRD) Amer 101 mL/min >60 [facility] Comment on above: GFR Calc Estimated GFR (MDRD) Non-Af Amer 83 mL/min >60 [facility] Comment on above: Non- GFR Calc Serum or plasma calcium donny urement (mass/volume)Ordered By: Dr. Jung on 03-05-2023 Calcium [Mass/Vol] 9.4 mg/dL 8.5-10.1 [facility] Serum or plasma creatinine m easurement (mass/volume)Ordered By: Dr. Jung on 03-05-2023 Creatinine [Mass/Vol] 0.72 mg/dL 0.55-1.02 [facility] Comment on above: The validity of the calculated GFR & GFRAA in patients over 70 years has not been determined. Clinical correlation is essential. Serum or plasma urea nitroge n measurement (mass/volume)Ordered By: Dr. Jung on 03-05-2023 Urea nitrogen [Mass/Vol] 16 mg/dL 7-18 [facility] Thin prep Papanicolaou smear with manual screeningOrdered By: Dr. Jung on 03-05-2023 Thin prep Papanicolaou smear with manual screening 6 5-15 [facility] No Panel InformationOrdered By: Dr. Jung on 02-11-2023 Urine Microalbumin/Creatin ine Ratio 8.8 mg/g CRE <30 [facility] Thin prep Papanicolaou smear with manual screeningOrdered By: Dr. Jung on 02-11-2023 Thin prep Papanicolaou smear with manual screening 5.5 mg/L NO RANGE EST. [facility] Urine creatinine measurement (mass/volume)Ordered By: Dr. Jung on 02-11-2023 Creatinine (U) [Mass/Vol] 62.00 mg/dL NO RANGE EST. [facility] Absolute lymphocyte countOrd ered By: Dr. Jung on 02-05-2023 Lymphocytes Auto (Unsp spec) [#/Vol] 1.70 10*3/uL 0.83-4.51 [facility] Basophil percentageOrdered B y: Dr. Jung on 02-05-2023 Basophils/100 WBC (Bld) 0.6 % 0-1 [facility] Chloride [Moles/Vol] 104 mmol/L 98-107 [facility] Eosinophils/100 WBC (Bld) 1.3 % 0-5 [facility] Glucose [Mass/Vol] 92 mg/dL 74-106 [facility] Neutrophils (Bld) [#/Vol] 6.2 10*3/uL 2.0-7.7 [facility] Neutrophils/100 WBC (Bld) 70.5 % 47-70 [facility] Potassium [Moles/Vol] 4.1 mmol/L 3.5-5.1 [facility] Sodium [Moles/Vol] 139 mmol/L 136-145 [facility] WBC (Bld) [#/Vol] 8.8 10*3/uL 4.4-11.0 [facility] Blood erythrocytes count (nu mber/volume)Ordered By: Dr. Jung on 02-05-2023 RBC (Bld) [#/Vol] 4.30 10*6/uL 4.2-5.4 [facility] Blood hemoglobin measurement (mass/volume)Ordered By: Dr. Jung on 02-05-2023 Hemoglobin (Bld) [Mass/Vol] 12.2 g/dL 12.0-15.0 [facility] Blood lymphocytes/100 leukoc ytesOrdered By: Dr. Jung on 02-05-2023 Lymphocytes/100 WBC (Bld) 19.4 % 19-41 [facility] Blood monocytes/100 leukocyt esOrdered By: Dr. Jung on 02-05-2023 Monocytes/100 WBC (Bld) 8.0 % 0-10 [facility] Blood platelet mean volumeOr dered By: Dr. Jung on 02-05-2023 Platelet mean volume (Bld) [Entitic vol] 11.4 fL 6.2-12.0 [facility] Determination of erythrocyte mean corpuscular volume (MCV)Ordered By: Dr. Jung on 02-05-2023 MCV (RBC) [Entitic vol] 88.6 fL 81-99 [facility] Hematocrit Auto (Bld) [Volum e fraction]Ordered By: Dr. Jung on 02-05-2023 Hematocrit (Bld) [Volume fraction] 38.1 % 37-47 [facility] - Chemistry and C hemistry - challengeOrdered By: Dr. Jung on 02-05-2023 CO2 [Moles/Vol] 30.0 mmol/L 21.0-32.0 [facility] Urea nitrogen/Creatinine [Mass ratio] 27.5 mg/mg 10-20 [facility] - Hematology and Cell countsOrdered By: Dr. Jung on 02-05-2023 Erythrocyte distribution width (RBC) [Entitic vol] 50.8 fL 35.1-43.9 [facility] Erythrocyte distribution width (RBC) [Ratio] 15.7 % 11.6-14.6 [facility] Immature granulocytes/100 WBC (Bld) 0.200 % 0.0-0.9 [facility] Comment on above: IG% - Immature Granu locytes (promyelocytes, myelocytes and metamyelocytes) > 1% indicates that a LEFT SHIFT is Present. MCH (RBC) [Entitic mass] 28.4 pg 27.0-32.0 [facility] Nucleated RBC/100 WBC (Bld) [Ratio] 0 % 0-5 [facility] MCHC Auto (RBC) [Mass/Vol]Or dered By: Dr. Jung on 02-05-2023 MCHC (RBC) [Mass/Vol] 32.0 g/dL 32-36 [facility] No Panel InformationOrdered By: Dr. Jung on 02-05-2023 Estimated GFR (MDRD) Amer 121 mL/min >60 [facility] Comment on above: GFR Calc Estimated GFR (MDRD) Non-Af Amer 100 mL/min >60 [facility] Comment on above: Non- GFR Calc Platelets bldOrdered By: Dr. Jung on 02-05-2023 Platelets (Bld) [#/Vol] 327 10*3/uL 150-450 [facility] Serum or plasma calcium donny urement (mass/volume)Ordered By: Dr. Jung on 02-05-2023 Calcium [Mass/Vol] 9.3 mg/dL 8.5-10.1 [facility] Serum or plasma creatinine m easurement (mass/volume)Ordered By: Dr. Jung on 02-05-2023 Creatinine [Mass/Vol] 0.62 mg/dL 0.55-1.02 [facility] Comment on above: The validity of the calculated GFR & GFRAA in patients over 70 years has not been determined. Clinical correlation is essential. Serum or plasma urea nitroge n measurement (mass/volume)Ordered By: Dr. Jung on 02-05-2023 Urea nitrogen [Mass/Vol] 17 mg/dL 7-18 [facility] Thin prep Papanicolaou smear with manual screeningOrdered By: Dr. Jung on 02-05-2023 Thin prep Papanicolaou smear with manual screening 5 5-15 [facility] Basophil percentageOrdered B y: Dr. Jung on 01-16-2023 Chloride [Moles/Vol] 103 mmol/L 98-107 [facility] Glucose [Mass/Vol] 120 mg/dL 74-106 [facility] Comment on above: Fasting Glucose resu lt from 100 to 125 mg/dL suggests IMPAIRED HOMEOSTASIS per A.D.A. criteria. Potassium [Moles/Vol] 4.1 mmol/L 3.5-5.1 [facility] Sodium [Moles/Vol] 137 mmol/L 136-145 [facility] - Chemistry and C hemistry - challengeOrdered By: Dr. Jung on 01-16-2023 CO2 [Moles/Vol] 28.0 mmol/L 21.0-32.0 [facility] Urea nitrogen/Creatinine [Mass ratio] 25.6 mg/mg 10-20 [facility] No Panel InformationOrdered By: Dr. Jung on 01-16-2023 Estimated GFR (MDRD) Amer 87 mL/min >60 [facility] Comment on above: GFR Calc Estimated GFR (MDRD) Non-Af Amer 72 mL/min >60 [facility] Comment on above: Non- GFR Calc Serum or plasma calcium donny urement (mass/volume)Ordered By: Dr. Jung on 01-16-2023 Calcium [Mass/Vol] 9.7 mg/dL 8.5-10.1 [facility] Serum or plasma creatinine m easurement (mass/volume)Ordered By: Dr. Jung on 01-16-2023 Creatinine [Mass/Vol] 0.82 mg/dL 0.55-1.02 [facility] Comment on above: The validity of the calculated GFR & GFRAA in patients over 70 years has not been determined. Clinical correlation is essential. Serum or plasma urea nitroge n measurement (mass/volume)Ordered By: Dr. Jung on 01-16-2023 Urea nitrogen [Mass/Vol] 21 mg/dL 7-18 [facility] Thin prep Papanicolaou smear with manual screeningOrdered By: Dr. Jnug on 01-16-2023 Thin prep Papanicolaou smear with manual screening 6 5-15 [facility] Absolute lymphocyte countOrd ered By: Dr. Jung on 01-07-2023 Lymphocytes Auto (Unsp spec) [#/Vol] 2.07 10*3/uL 0.83-4.51 [facility] Basophil percentageOrdered B y: Dr. Jung on 01-07-2023 Basophils/100 WBC (Bld) 0.5 % 0-1 [facility] Bilirubin [Mass/Vol] 0.40 mg/dL 0.20-1.00 [facility] Comment on above: For patients on eltr ombopag therapy, use of Dimension [place] TBIL is not recommended. Chloride [Moles/Vol] 101 mmol/L 98-107 [facility] Eosinophils/100 WBC (Bld) 1.2 % 0-5 [facility] Glucose [Mass/Vol] 126 mg/dL 74-106 [facility] Comment on above: Fasting Glucose resu lt greater than or equal to 126 mg/dL suggests DIABETES MELLITUS per A.D.A. criteria. Neutrophils (Bld) [#/Vol] 7.7 10*3/uL 2.0-7.7 [facility] Neutrophils/100 WBC (Bld) 70.3 % 47-70 [facility] Potassium [Moles/Vol] 3.0 mmol/L 3.5-5.1 [facility] Protein [Mass/Vol] 8.0 g/dL 6.4-8.2 [facility] Sodium [Moles/Vol] 136 mmol/L 136-145 [facility] WBC (Bld) [#/Vol] 10.9 10*3/uL 4.4-11.0 [facility] Blood erythrocytes count (nu mber/volume)Ordered By: Dr. Jung on 01-07-2023 RBC (Bld) [#/Vol] 5.00 10*6/uL 4.2-5.4 [facility] Blood hemoglobin measurement (mass/volume)Ordered By: Dr. Jung on 01-07-2023 Hemoglobin (Bld) [Mass/Vol] 13.8 g/dL 12.0-15.0 [facility] Blood lymphocytes/100 leukoc ytesOrdered By: Dr. Jung on 01-07-2023 Lymphocytes/100 WBC (Bld) 18.9 % 19-41 [facility] Blood monocytes/100 leukocyt esOrdered By: Dr. Jung on 01-07-2023 Monocytes/100 WBC (Bld) 8.6 % 0-10 [facility] Blood platelet mean volumeOr dered By: Dr. Jung on 01-07-2023 Platelet mean volume (Bld) [Entitic vol] 11.5 fL 6.2-12.0 [facility] Determination of erythrocyte mean corpuscular volume (MCV)Ordered By: Dr. Jung on 01-07-2023 MCV (RBC) [Entitic vol] 88.8 fL 81-99 [facility] Hematocrit Auto (Bld) [Volum e fraction]Ordered By: Dr. Jung on 01-07-2023 Hematocrit (Bld) [Volume fraction] 44.4 % 37-47 [facility] - Chemistry and C hemistry - challengeOrdered By: Dr. Jung on 01-07-2023 ALP [Catalytic activity/Vol] 103 U/L 45-117 [facility] ALT [Catalytic activity/Vol] 29 U/L 13-56 [facility] CO2 [Moles/Vol] 28.0 mmol/L 21.0-32.0 [facility] Globulin (S) [Mass/Vol] 4.5 g/dL 2.2-4.2 [facility] Urea nitrogen/Creatinine [Mass ratio] 19.3 mg/mg 10-20 [facility] - Hematology and Cell countsOrdered By: Dr. Jung on 01-07-2023 Erythrocyte distribution width (RBC) [Entitic vol] 47.5 fL 35.1-43.9 [facility] Erythrocyte distribution width (RBC) [Ratio] 14.7 % 11.6-14.6 [facility] Immature granulocytes/100 WBC (Bld) 0.500 % 0.0-0.9 [facility] Comment on above: IG% - Immature Granu locytes (promyelocytes, myelocytes and metamyelocytes) > 1% indicates that a LEFT SHIFT is Present. MCH (RBC) [Entitic mass] 27.6 pg 27.0-32.0 [facility] Nucleated RBC/100 WBC (Bld) [Ratio] 0 % 0-5 [facility] MCHC Auto (RBC) [Mass/Vol]Or dered By: Dr. Jung on 01-07-2023 MCHC (RBC) [Mass/Vol] 31.1 g/dL 32-36 [facility] No Panel InformationOrdered By: Dr. Jung on 01-07-2023 Estimated GFR (MDRD) Amer 92 mL/min >60 [facility] Comment on above: GFR Calc Estimated GFR (MDRD) Non-Af Amer 76 mL/min >60 [facility] Comment on above: Non- GFR Calc Thyroid Stimulating Hormone (TSH) 1.68 uIU/mL 0.358-3.74 [facility] Vitamin D 25-Hydroxy 42.8 ng/mL [facility] Comment on above: Vitamin D 25(OH) Sta tus Range Deficiency <20 ng/mL (50nmol/L) Insufficiency 20 - 30 ng/mL (50 - 75 nmol/L) Sufficiency 30 - 100 ng/mL (75 - 250 nmol/L) Toxicity >100 ng/mL (>250 nmol/L) Platelets bldOrdered By: Dr. Jung on 01-07-2023 Platelets (Bld) [#/Vol] 384 10*3/uL 150-450 [facility] Serum or plasma albumin donny urement (mass/volume)Ordered By: Dr. Jung on 01-07-2023 Albumin [Mass/Vol] 3.5 g/dL 3.2-5.0 [facility] Serum or plasma albumin/glob ulin mass ratioOrdered By: Dr. Jung on 01-07-2023 Albumin/Globulin [Mass ratio] 0.8 {ratio} 0.9-2.4 [facility] Serum or plasma calcium donny urement (mass/volume)Ordered By: Dr. Jung on 01-07-2023 Calcium [Mass/Vol] 9.8 mg/dL 8.5-10.1 [facility] Serum or plasma creatinine m easurement (mass/volume)Ordered By: Dr. Jung on 01-07-2023 Creatinine [Mass/Vol] 0.78 mg/dL 0.55-1.02 [facility] Comment on above: The validity of the calculated GFR & GFRAA in patients over 70 years has not been determined. Clinical correlation is essential. Serum or plasma urea nitroge n measurement (mass/volume)Ordered By: Dr. Jung on 01-07-2023 Urea nitrogen [Mass/Vol] 15 mg/dL - [facility] Thin prep Papanicolaou smear with manual screeningOrdered By: Dr. Jung on 01-07-2023 Thin prep Papanicolaou smear with manual screening 26 U/L 15-37 [facility] Thin prep Papanicolaou smear with manual screening 7 - [facility] Absolute lymphocyte countOrd ered By: Dr. Jung on 10-15-2022 Lymphocytes Auto (Unsp spec) [#/Vol] 1.66 10*3/uL 0.83-4.51 [facility] Basophil percentageOrdered B y: Dr. Jung on 10-15-2022 Basophils/100 WBC (Bld) 0.5 % 0-1 [facility] Bilirubin [Mass/Vol] 0.40 mg/dL 0.20-1.00 [facility] Comment on above: For patients on eltr ombopag therapy, use of Dimension [place] TBIL is not recommended. Chloride [Moles/Vol] 103 mmol/L 98-107 [facility] Eosinophils/100 WBC (Bld) 2.6 % 0-5 [facility] Glucose [Mass/Vol] 97 mg/dL 74-106 [facility] Neutrophils (Bld) [#/Vol] 5.6 10*3/uL 2.0-7.7 [facility] Neutrophils/100 WBC (Bld) 69.1 % 47-70 [facility] Potassium [Moles/Vol] 4.9 mmol/L 3.5-5.1 [facility] Comment on above: Slight Hemolysis, Re sult may be falsely increased. Protein [Mass/Vol] 7.1 g/dL 6.4-8.2 [facility] Sodium [Moles/Vol] 138 mmol/L 136-145 [facility] WBC (Bld) [#/Vol] 8.2 10*3/uL 4.4-11.0 [facility] Blood erythrocytes count (nu mber/volume)Ordered By: Dr. Jung on 10-15-2022 RBC (Bld) [#/Vol] 4.60 10*6/uL 4.2-5.4 [facility] Blood hemoglobin measurement (mass/volume)Ordered By: Dr. Jung on 10-15-2022 Hemoglobin (Bld) [Mass/Vol] 12.6 g/dL 12.0-15.0 [facility] Blood lymphocytes/100 leukoc ytesOrdered By: Dr. Jung on 10-15-2022 Lymphocytes/100 WBC (Bld) 20.4 % 19-41 [facility] Blood monocytes/100 leukocyt esOrdered By: Dr. Jung on 10-15-2022 Monocytes/100 WBC (Bld) 7.2 % 0-10 [facility] Blood platelet mean volumeOr dered By: Dr. Jung on 10-15-2022 Platelet mean volume (Bld) [Entitic vol] 11.5 fL 6.2-12.0 [facility] Determination of erythrocyte mean corpuscular volume (MCV)Ordered By: Dr. Jung on 10-15-2022 MCV (RBC) [Entitic vol] 89.1 fL 81-99 [facility] Hematocrit Auto (Bld) [Volum e fraction]Ordered By: Dr. Jung on 10-15-2022 Hematocrit (Bld) [Volume fraction] 41.0 % 37-47 [facility] - Chemistry and C hemistry - challengeOrdered By: Dr. Jung on 10-15-2022 ALP [Catalytic activity/Vol] 82 U/L 45-117 [facility] ALT [Catalytic activity/Vol] 24 U/L 13-56 [facility] CO2 [Moles/Vol] 28.0 mmol/L 21.0-32.0 [facility] Globulin (S) [Mass/Vol] 3.7 g/dL 2.2-4.2 [facility] Urea nitrogen/Creatinine [Mass ratio] 17.6 mg/mg 10-20 [facility] - Hematology and Cell countsOrdered By: Dr. Jung on 10-15-2022 Erythrocyte distribution width (RBC) [Entitic vol] 49.6 fL 35.1-43.9 [facility] Erythrocyte distribution width (RBC) [Ratio] 15.1 % 11.6-14.6 [facility] Immature granulocytes/100 WBC (Bld) 0.200 % 0.0-0.9 [facility] Comment on above: IG% - Immature Granu locytes (promyelocytes, myelocytes and metamyelocytes) > 1% indicates that a LEFT SHIFT is Present. MCH (RBC) [Entitic mass] 27.4 pg 27.0-32.0 [facility] Nucleated RBC/100 WBC (Bld) [Ratio] 0 % 0-5 [facility] MCHC Auto (RBC) [Mass/Vol]Or dered By: Dr. Jung on 10-15-2022 MCHC (RBC) [Mass/Vol] 30.7 g/dL 32-36 [facility] No Panel InformationOrdered By: Dr. Jung on 10-15-2022 Estimated GFR (MDRD) Amer 119 mL/min >60 [facility] Comment on above: GFR Calc Estimated GFR (MDRD) Non-Af Amer 99 mL/min >60 [facility] Comment on above: Non- GFR Calc Thyroid Stimulating Hormone (TSH) 1.94 uIU/mL 0.358-3.74 [facility] Vitamin D 25-Hydroxy 38.2 ng/mL [facility] Comment on above: Vitamin D 25(OH) Sta tus Range Deficiency <20 ng/mL (50nmol/L) Insufficiency 20 - 30 ng/mL (50 - 75 nmol/L) Sufficiency 30 - 100 ng/mL (75 - 250 nmol/L) Toxicity >100 ng/mL (>250 nmol/L) Platelets bldOrdered By: Dr. Jung on 10-15-2022 Platelets (Bld) [#/Vol] 313 10*3/uL 150-450 [facility] Serum or plasma albumin donny urement (mass/volume)Ordered By: Dr. Jung on 10-15-2022 Albumin [Mass/Vol] 3.4 g/dL 3.2-5.0 [facility] Serum or plasma albumin/glob ulin mass ratioOrdered By: Dr. Jung on 10-15-2022 Albumin/Globulin [Mass ratio] 0.9 {ratio} 0.9-2.4 [facility] Serum or plasma calcium donny urement (mass/volume)Ordered By: Dr. Jung on 10-15-2022 Calcium [Mass/Vol] 9.4 mg/dL 8.5-10.1 [facility] Serum or plasma creatinine m easurement (mass/volume)Ordered By: Dr. Jung on 10-15-2022 Creatinine [Mass/Vol] 0.62 mg/dL 0.55-1.02 [facility] Comment on above: The validity of the calculated GFR & GFRAA in patients over 70 years has not been determined. Clinical correlation is essential. Serum or plasma urea nitroge n measurement (mass/volume)Ordered By: Dr. Jung on 10-15-2022 Urea nitrogen [Mass/Vol] 11 mg/dL 04-14 [facility] Thin prep Papanicolaou smear with manual screeningOrdered By: Dr. Jung on 10-15-2022 Thin prep Papanicolaou smear with manual screening 22 U/L 15- [facility] Comment on above: Slight Hemolysis, Re sult may be falsely increased. Thin prep Papanicolaou smear with manual screening 7 - [facility] Absolute lymphocyte countOrd ered By: Dr. Jung on 07-17-2022 Lymphocytes Auto (Unsp spec) [#/Vol] 1.82 10*3/uL 0.83-4.51 [facility] Basophil percentageOrdered B y: Dr. Jung on 07-17-2022 Basophils/100 WBC (Bld) 0.5 % 0-1 [facility] Bilirubin [Mass/Vol] 0.30 mg/dL 0.20-1.00 [facility] Comment on above: For patients on eltr ombopag therapy, use of Dimension [place] TBIL is not recommended. Chloride [Moles/Vol] 102 mmol/L 98-107 [facility] Eosinophils/100 WBC (Bld) 1.3 % 0-5 [facility] Glucose [Mass/Vol] 118 mg/dL 74-106 [facility] Comment on above: Fasting Glucose resu lt from 100 to 125 mg/dL suggests IMPAIRED HOMEOSTASIS per A.D.A. criteria. Neutrophils (Bld) [#/Vol] 6.6 10*3/uL 2.0-7.7 [facility] Neutrophils/100 WBC (Bld) 70.0 % 47-70 [facility] Potassium [Moles/Vol] 4.2 mmol/L 3.5-5.1 [facility] Comment on above: Slight Hemolysis, Re sult may be falsely increased. Protein [Mass/Vol] 7.3 g/dL 6.4-8.2 [facility] Sodium [Moles/Vol] 137 mmol/L 136-145 [facility] WBC (Bld) [#/Vol] 9.4 10*3/uL 4.4-11.0 [facility] Blood erythrocytes count (nu mber/volume)Ordered By: Dr. Jung on 07-17-2022 RBC (Bld) [#/Vol] 4.43 10*6/uL 4.2-5.4 [facility] Blood hemoglobin measurement (mass/volume)Ordered By: Dr. Jung on 07-17-2022 Hemoglobin (Bld) [Mass/Vol] 12.5 g/dL 12.0-15.0 [facility] Blood lymphocytes/100 leukoc ytesOrdered By: Dr. Jung on 07-17-2022 Lymphocytes/100 WBC (Bld) 19.3 % 19-41 [facility] Blood monocytes/100 leukocyt esOrdered By: Dr. Jung on 07-17-2022 Monocytes/100 WBC (Bld) 8.4 % 0-10 [facility] Blood platelet mean volumeOr dered By: Dr. Jung on 07-17-2022 Platelet mean volume (Bld) [Entitic vol] 11.0 fL 6.2-12.0 [facility] Determination of erythrocyte mean corpuscular volume (MCV)Ordered By: Dr. Jung on 07-17-2022 MCV (RBC) [Entitic vol] 90.3 fL 81-99 [facility] Hematocrit Auto (Bld) [Volum e fraction]Ordered By: Dr. Jung on 07-17-2022 Hematocrit (Bld) [Volume fraction] 40.0 % 37-47 [facility] Laboratory - Chemistry and C hemistry - challengeOrdered By: Dr. Jung on 07-17-2022 ALP [Catalytic activity/Vol] 89 U/L 45-117 [facility] ALT [Catalytic activity/Vol] 31 U/L 13-56 [facility] CO2 [Moles/Vol] 26.0 mmol/L 21.0-32.0 [facility] Globulin (S) [Mass/Vol] 3.9 g/dL 2.2-4.2 [facility] Urea nitrogen/Creatinine [Mass ratio] 16.9 mg/mg 10- [facility] Laboratory - Hematology and Cell countsOrdered By: Dr. Jung on 07-17-2022 Erythrocyte distribution width (RBC) [Entitic vol] 47.6 fL 35.1-43.9 [facility] Erythrocyte distribution width (RBC) [Ratio] 14.5 % 11.6-14.6 [facility] Immature granulocytes/100 WBC (Bld) 0.500 % 0.0-0.9 [facility] Comment on above: IG% - Immature Granu locytes (promyelocytes, myelocytes and metamyelocytes) > 1% indicates that a LEFT SHIFT is Present. MCH (RBC) [Entitic mass] 28.2 pg 27.0-32.0 [facility] Nucleated RBC/100 WBC (Bld) [Ratio] 0 % 0-5 [facility] MCHC Auto (RBC) [Mass/Vol]Or dered By: Dr. Jung on 07-17-2022 MCHC (RBC) [Mass/Vol] 31.3 g/dL 32-36 [facility] No Panel InformationOrdered By: Dr. Jung on 07-17-2022 Estimated GFR (MDRD) Amer 94 mL/min >60 [facility] Comment on above: GFR Calc Estimated GFR (MDRD) Non-Af Amer 77 mL/min >60 [facility] Comment on above: Non- GFR Calc Thyroid Stimulating Hormone (TSH) 1.58 uIU/mL 0.358-3.74 [facility] Vitamin D 25-Hydroxy 42.1 ng/mL [facility] Comment on above: Vitamin D 25(OH) Sta tus Range Deficiency <20 ng/mL (50nmol/L) Insufficiency 20 - 30 ng/mL (50 - 75 nmol/L) Sufficiency 30 - 100 ng/mL (75 - 250 nmol/L) Toxicity >100 ng/mL (>250 nmol/L) Platelets bldOrdered By: Dr. Jung on 07-17-2022 Platelets (Bld) [#/Vol] 358 10*3/uL 150-450 [facility] Serum or plasma albumin donny urement (mass/volume)Ordered By: Dr. Jung on 07-17-2022 Albumin [Mass/Vol] 3.4 g/dL 3.2-5.0 [facility] Serum or plasma albumin/glob ulin mass ratioOrdered By: Dr. Jung on 07-17-2022 Albumin/Globulin [Mass ratio] 0.9 {ratio} 0.9-2.4 [facility] Serum or plasma calcium donny urement (mass/volume)Ordered By: Dr. Jung on 07-17-2022 Calcium [Mass/Vol] 9.3 mg/dL 8.5-10.1 [facility] Serum or plasma creatinine m easurement (mass/volume)Ordered By: Dr. Jung on 07-17-2022 Creatinine [Mass/Vol] 0.77 mg/dL 0.55-1.02 [facility] Comment on above: The validity of the calculated GFR & GFRAA in patients over 70 years has not been determined. Clinical correlation is essential. Serum or plasma urea nitroge n measurement (mass/volume)Ordered By: Dr. Jung on 07-17-2022 Urea nitrogen [Mass/Vol] 13 mg/dL -18 [facility] Thin prep Papanicolaou smear with manual screeningOrdered By: Dr. Jung on 07-17-2022 Thin prep Papanicolaou smear with manual screening 25 U/L 15-37 [facility] Comment on above: Slight Hemolysis, Re sult may be falsely increased. Thin prep Papanicolaou smear with manual screening 9 5-15 [facility] Absolute lymphocyte counton 04-14-2022 Lymphocytes Auto (Unsp spec) [#/Vol] 2.54 10*3/uL 0.83-4.51 [facility] Work Phone: Basophil percentageon 2021 Basophils/100 WBC (Bld) 0.6 % 0-1 [facility] Work Phone: Bilirubin [Mass/Vol] 0.30 mg/dL 0.20-1.00 [facility] Work Phone: [phone] Comment on above: For patients on eltr ombopag therapy, use of Dimension [place] TBIL is not recommended. Chloride [Moles/Vol] 102 mmol/L 98-107 [facility] Work Phone: [phone] Eosinophils/100 WBC (Bld) 1.8 % 0-5 [facility] Work Phone: [phone] Glucose [Mass/Vol] 108 mg/dL 74-106 [facility] Work Phone: Comment on above: Fasting Glucose resu lt from 100 to 125 mg/dL suggests IMPAIRED HOMEOSTASIS per A.D.A. criteria. Neutrophils (Bld) [#/Vol] 9.2 10*3/uL 2.0-7.7 [facility] Work Phone: [phone] Neutrophils/100 WBC (Bld) 70.6 % 47-70 [facility] Work Phone: Potassium [Moles/Vol] 4.3 mmol/L 3.5-5.1 [facility] Work Phone: Comment on above: Slight Hemolysis, Re sult may be falsely increased. Protein [Mass/Vol] 7.4 g/dL 6.4-8.2 [facility] Work Phone: [phone] Sodium [Moles/Vol] 140 mmol/L 136-145 [facility] Work Phone: [phone] WBC (Bld) [#/Vol] 13.0 10*3/uL 4.4-11.0 [facility] Work Phone: Blood erythrocytes count (nu mber/volume)on 04-14-2022 RBC (Bld) [#/Vol] 4.63 10*6/uL 4.2-5.4 [facility] Work Phone: Blood hemoglobin measurement (mass/volume)on 04-14-2022 Hemoglobin (Bld) [Mass/Vol] 13.6 g/dL 12.0-15.0 [facility] Work Phone: Blood lymphocytes/100 leukoc yteson 04-14-2022 Lymphocytes/100 WBC (Bld) 19.5 % 19-41 [facility] Work Phone: Blood monocytes/100 leukocyt eson 04-14-2022 Monocytes/100 WBC (Bld) 7.0 % 0-10 [facility] Work Phone: Blood platelet mean volumeon 04-14-2022 Platelet mean volume (Bld) [Entitic vol] 11.4 fL 6.2-12.0 [facility] Work Phone: Determination of erythrocyte mean corpuscular volume (MCV)on 04-14-2022 MCV (RBC) [Entitic vol] 93.3 fL 81-99 [facility] Work Phone: Hematocrit Auto (Bld) [Volum e fraction]on 04-14-2022 Hematocrit (Bld) [Volume fraction] 43.2 % 37-47 [facility] Work Phone: [phone] Laboratory - Chemistry and C hemistry - challengeon 04-14-2022 ALP [Catalytic activity/Vol] 96 U/L 45-117 [facility] Work Phone: ALT [Catalytic activity/Vol] 43 U/L 13-56 [facility] Work Phone: CO2 [Moles/Vol] 30.0 mmol/L 21.0-32.0 [facility] Work Phone: Globulin (S) [Mass/Vol] 4.0 g/dL 2.2-4.2 [facility] Work Phone: Urea nitrogen/Creatinine [Mass ratio] 21.0 mg/mg 10-20 [facility] Work Phone: Laboratory - Hematology and Cell countson 04-14-2022 Erythrocyte distribution width (RBC) [Entitic vol] 49.9 fL 35.1-43.9 [facility] Work Phone: Erythrocyte distribution width (RBC) [Ratio] 14.6 % 11.6-14.6 [facility] Work Phone: Immature granulocytes/100 WBC (Bld) 0.500 % 0.0-0.9 [facility] Work Phone: Comment on above: IG% - Immature Granu locytes (promyelocytes, myelocytes and metamyelocytes) > 1% indicates that a LEFT SHIFT is Present. MCH (RBC) [Entitic mass] 29.4 pg 27.0-32.0 [facility] Work Phone: Nucleated RBC/100 WBC (Bld) [Ratio] 0 % 0-5 [facility] Work Phone: MCHC Auto (RBC) [Mass/Vol]on 04-14-2022 MCHC (RBC) [Mass/Vol] 31.5 g/dL 32-36 [facility] Work Phone: No Panel Informationon 04-14 Estimated GFR (MDRD) Amer 88 mL/min >60 [facility] Work Phone: Comment on above: GFR Calc Estimated GFR (MDRD) Non-Af Amer 73 mL/min >60 [facility] Work Phone: Comment on above: Non- GFR Calc Thyroid Stimulating Hormone (TSH) 1.59 uIU/mL 0.358-3.74 [facility] Work Phone: Vitamin D 25-Hydroxy 37.4 ng/mL [facility] Work Phone: Comment on above: Vitamin D 25(OH) Sta tus Range Deficiency <20 ng/mL (50nmol/L) Insufficiency 20 - 30 ng/mL (50 - 75 nmol/L) Sufficiency 30 - 100 ng/mL (75 - 250 nmol/L) Toxicity >100 ng/mL (>250 nmol/L) Platelets bldon 04-14-2022 Platelets (Bld) [#/Vol] 362 10*3/uL 150-450 [facility] Work Phone: Serum or plasma albumin donny urement (mass/volume)on 04-14-2022 Albumin [Mass/Vol] 3.4 g/dL 3.2-5.0 [facility] Work Phone: Serum or plasma albumin/glob ulin mass ratioon 04-14-2022 Albumin/Globulin [Mass ratio] 0.8 {ratio} 0.9-2.4 [facility] Work Phone: Serum or plasma calcium donny urement (mass/volume)on 04-14-2022 Calcium [Mass/Vol] 9.7 mg/dL 8.5-10.1 [facility] Work Phone: Serum or plasma creatinine m easurement (mass/volume)on 04-14-2022 Creatinine [Mass/Vol] 0.81 mg/dL 0.55-1.02 [facility] Work Phone: Comment on above: The validity of the calculated GFR & GFRAA in patients over 70 years has not been determined. Clinical correlation is essential. Serum or plasma urea nitroge n measurement (mass/volume)on 04-14-2022 Urea nitrogen [Mass/Vol] 17 mg/dL 7-18 [facility] Work Phone: Thin prep Papanicolaou smear with manual screeningon 04-14-2022 Thin prep Papanicolaou smear with manual screening 33 U/L 15-37 [facility] Work Phone: Comment on above: Slight Hemolysis, Re sult may be falsely increased. Thin prep Papanicolaou smear with manual screening 8 5-15 [facility] Work Phone: No Panel Informationon 01-07 Influenza Types A,B Direct FA ([facility]) [facility] Work Phone: Absolute lymphocyte counton 01-02-2022 Lymphocytes Auto (Unsp spec) [#/Vol] 2.45 10*3/uL 0.83-4.51 [facility] Work Phone: Basophil percentageon 2021 Basophils/100 WBC (Bld) 0.5 % 0-1 [facility] Work Phone: Bilirubin [Mass/Vol] 0.50 mg/dL 0.20-1.00 [facility] Work Phone: [phone] Comment on above: For patients on eltr ombopag therapy, use of Dimension [place] TBIL is not recommended. Chloride [Moles/Vol] 103 mmol/L 98-107 [facility] Work Phone: Eosinophils/100 WBC (Bld) 1.6 % 0-5 [facility] Work Phone: Glucose [Mass/Vol] 96 mg/dL 74-106 [facility] Work Phone: Neutrophils (Bld) [#/Vol] 8.0 10*3/uL 2.0-7.7 [facility] Work Phone: Neutrophils/100 WBC (Bld) 69.2 % 47-70 [facility] Work Phone: [phone] Potassium [Moles/Vol] 4.7 mmol/L 3.5-5.1 [facility] Work Phone: [phone] Comment on above: Moderate Hemolysis, Result may be falsely increased. Protein [Mass/Vol] 7.7 g/dL 6.4-8.2 [facility] Work Phone: Sodium [Moles/Vol] 135 mmol/L 136-145 [facility] Work Phone: [phone] WBC (Bld) [#/Vol] 11.5 10*3/uL 4.4-11.0 [facility] Work Phone: Blood erythrocytes count (nu mber/volume)on 01-02-2022 RBC (Bld) [#/Vol] 4.57 10*6/uL 4.2-5.4 [facility] Work Phone: Blood hemoglobin measurement (mass/volume)on 01-02-2022 Hemoglobin (Bld) [Mass/Vol] 13.4 g/dL 12.0-15.0 [facility] Work Phone: Blood lymphocytes/100 leukoc yteson 01-02-2022 Lymphocytes/100 WBC (Bld) 21.3 % 19-41 [facility] Work Phone: Blood monocytes/100 leukocyt eson 01-02-2022 Monocytes/100 WBC (Bld) 6.9 % 0-10 [facility] Work Phone: Blood platelet mean volumeon 01-02-2022 Platelet mean volume (Bld) [Entitic vol] 11.3 fL 6.2-12.0 [facility] Work Phone: Determination of erythrocyte mean corpuscular volume (MCV)on 01-02-2022 MCV (RBC) [Entitic vol] 91.0 fL 81-99 [facility] Work Phone: Hematocrit Auto (Bld) [Volum e fraction]on 01-02-2022 Hematocrit (Bld) [Volume fraction] 41.6 % 37-47 [facility] Work Phone: Laboratory - Chemistry and C hemistry - challengeon 01-02-2022 ALP [Catalytic activity/Vol] 82 U/L 45-117 [facility] Work Phone: ALT [Catalytic activity/Vol] 29 U/L 13-56 [facility] Work Phone: CO2 [Moles/Vol] 26.0 mmol/L 21.0-32.0 [facility] Work Phone: [phone] Globulin (S) [Mass/Vol] 3.9 g/dL 2.2-4.2 [facility] Work Phone: Urea nitrogen/Creatinine [Mass ratio] 20.7 mg/mg 10-20 [facility] Work Phone: Laboratory - Hematology and Cell countson 01-02-2022 Erythrocyte distribution width (RBC) [Entitic vol] 46.8 fL 35.1-43.9 [facility] Work Phone: Erythrocyte distribution width (RBC) [Ratio] 13.9 % 11.6-14.6 [facility] Work Phone: Immature granulocytes/100 WBC (Bld) 0.500 % 0.0-0.9 [facility] Work Phone: Comment on above: IG% - Immature Granu locytes (promyelocytes, myelocytes and metamyelocytes) > 1% indicates that a LEFT SHIFT is Present. MCH (RBC) [Entitic mass] 29.3 pg 27.0-32.0 [facility] Work Phone: Nucleated RBC/100 WBC (Bld) [Ratio] 0 % 0-5 [facility] Work Phone: MCHC Auto (RBC) [Mass/Vol]on 01-02-2022 MCHC (RBC) [Mass/Vol] 32.2 g/dL 32-36 [facility] Work Phone: No Panel Informationon 01-02 Estimated GFR (MDRD) Amer 119 mL/min >60 [facility] Work Phone: Comment on above: GFR Calc Estimated GFR (MDRD) Non-Af Amer 98 mL/min >60 [facility] Work Phone: Comment on above: Non- GFR Calc Thyroid Stimulating Hormone (TSH) 1.56 uIU/mL 0.358-3.74 [facility] Work Phone: Vitamin D 25-Hydroxy 41.2 ng/mL [facility] Work Phone: Comment on above: Vitamin D 25(OH) Sta tus Range Deficiency <20 ng/mL (50nmol/L) Insufficiency 20 - 30 ng/mL (50 - 75 nmol/L) Sufficiency 30 - 100 ng/mL (75 - 250 nmol/L) Toxicity >100 ng/mL (>250 nmol/L) Platelets bldon 01-02-2022 Platelets (Bld) [#/Vol] 319 10*3/uL 150-450 [facility] Work Phone: Serum or plasma albumin donny urement (mass/volume)on 01-02-2022 Albumin [Mass/Vol] 3.8 g/dL 3.2-5.0 [facility] Work Phone: Serum or plasma albumin/glob ulin mass ratioon 01-02-2022 Albumin/Globulin [Mass ratio] 1.0 {ratio} 0.9-2.4 [facility] Work Phone: Serum or plasma calcium donny urement (mass/volume)on 01-02-2022 Calcium [Mass/Vol] 9.2 mg/dL 8.5-10.1 [facility] Work Phone: Serum or plasma creatinine m easurement (mass/volume)on 01-02-2022 Creatinine [Mass/Vol] 0.63 mg/dL 0.55-1.02 [facility] Work Phone: Comment on above: The validity of the calculated GFR & GFRAA in patients over 70 years has not been determined. Clinical correlation is essential. Serum or plasma urea nitroge n measurement (mass/volume)on 01-02-2022 Urea nitrogen [Mass/Vol] 13 mg/dL 7-18 [facility] Work Phone: Thin prep Papanicolaou smear with manual screeningon 01-02-2022 Thin prep Papanicolaou smear with manual screening 22 U/L 15-37 [facility] Work Phone: Comment on above: Moderate Hemolysis, Result may be falsely increased. Thin prep Papanicolaou smear with manual screening 6 5-15 [facility] Work Phone: CNOVon 08-27-2017 CNOV Office Visit (GEETAS) -[place]Z [place] ([id number]) 1945 [facility] Time Provider [id number]/30/17 3:00 PM CAMILA STERLING During your visit today, we recorded the following information about you:Camila Sterling MD 08/30/2017 11:58 AM SignedJudsanya Vegas, a patient of Dr. Gillespie, presented to ED [facility] with abdominal pain.Found to have acute [...] by MD CAMILA STERLING on 08/30/[address] [facility] PROGRESSon 08-27-2017 PROGRESS HNO ID: [id number] thor: Camila Glez: (none)Author Type: PhysicianType: Progress NotesFiled: 08/30/2017 11:58 AMNote Text:Itz Vegas, a patient of Dr. Gillespie, presented to ED [facility] with abdominalpain.Found to have acute cholecystitis [...] her primary physician for medical care. Normal [facility] No Panel Information Influenza Types A,B Direct FA ([facility]) [facility] Work Phone: Vital Signs Date Time Vital Sign Value Performing Clinician Krys lawrence 12-28-2024 10:34-0400 Body height 157.5 cm Rere Duncan MD Work Phone: [facility] 12-28-2024 10:34-0400 Body mass index (BMI) [Ratio] 32.37 kg/m2 Rere Duncan MD Work Phone: [facility] 12-28-2024 10:34-0400 Body weight 80.29 kg Rere Duncan MD Work Phone: [facility] 12-28-2024 10:34-0400 Diastolic blood pressure 61 mm[Hg] Rere Duncan MD Work Phone: [facility] 12-28-2024 10:34-0400 Heart rate 58 /min Rere Duncan MD Work Phone: [facility] 12-28-2024 10:34-0400 SaO2% (BldA) [Mass fraction] 96 % Rere Duncan MD Work Phone: [facility] 12-28-2024 10:34-0400 Systolic blood pressure 152 mm[Hg] Rere Duncan MD Work Phone: [facility] 03-12-2023 11:08-0400 Diastolic blood pressure 87 mm[Hg] Dr. Jaya Jung Work Phone: [facility] 03-12-2023 11:08-0400 Systolic blood pressure 127 mm[Hg] Dr. Jaya Jung Work Phone: [facility] 03-12-2023 10:25-0400 Body height 160.[address] Jaya Jung Work Phone: [facility] 03-12-2023 10:25-0400 Body mass index (BMI) [Ratio] 34.7 kg/m2 Dr. Jaya Jung Work Phone: [facility] 03-12-2023 10:25-0400 Body temperature 97.6 [degF] Dr. Jaya Jung Work Phone: [facility] 03-12-2023 10:25-0400 Body weight 89.[address] Jaya Jung Work Phone: [facility] 03-12-2023 10:25-0400 Heart rate 60 /min Dr. Jaya Jung Work Phone: [facility] 03-12-2023 10:25-0400 Respiratory rate 16 /min Dr. Jaya Jung Work Phone: [facility] 03-12-2023 10:25-0400 SaO2% (BldA) [Mass fraction] 96 % Dr. Jaya Jung Work Phone: [facility] 11-14-2022 15:09-0500 Body height 160.[address] Jaya Jung Work Phone: [phone] [place] [address] 11-14-2022 15:09-0500 Body mass index (BMI) [Ratio] 34.5 kg/m2 Dr. Jaya Jung Work Phone: [facility] 11-14-2022 15:09-0500 Body temperature 98 [degF] Dr. Jaya Jung Work Phone: [facility] 11-14-2022 15:09-0500 Body weight 88.[address] Jaya Jung Work Phone: [facility] 11-14-2022 15:09-0500 Diastolic blood pressure 80 mm[Hg] Dr. Jaya Jung Work Phone: [facility] 11-14-2022 15:09-0500 Heart rate 56 /min Dr. Jaya Jung Work Phone: [facility] 11-14-2022 15:09-0500 Respiratory rate 18 /min Dr. Jaya Jung Work Phone: [facility] 11-14-2022 15:09-0500 SaO2% (BldA) [Mass fraction] 93 % Dr. Jaya Jung Work Phone: [facility] 11-14-2022 15:09-0500 Systolic blood pressure 132 mm[Hg] Dr. Jaya Jung Work Phone: [facility] 11-06-2022 11:42-0500 Body mass index (BMI) [Ratio] 33.8 kg/m2 Dr. Jaya Jung Work Phone: [phone] [place] [address] 11-06-2022 11:42-0500 Body weight 86.[address] Jaya Jung Work Phone: [facility] 11-06-2022 11:42-0500 Diastolic blood pressure 53 mm[Hg] Dr. Jaya Jung Work Phone: [phone] [place] [address] 11-06-2022 11:42-0500 Heart rate 54 /min Dr. Jaya Jung Work Phone: [phone] [place] [address] 11-06-2022 11:42-0500 Respiratory rate 16 /min Dr. Jaya Jung Work Phone: [facility] 11-06-2022 11:42-0500 SaO2% (BldA) [Mass fraction] 94 % Dr. Jaya Jung Work Phone: [facility] 11-06-2022 11:42-0500 Systolic blood pressure 107 mm[Hg] Dr. Jaya Jung Work Phone: [facility] 05-13-2022 15:51-0400 Body height 160.[address] Jaya Jung Work Phone: [facility] Work Phone: 05-13-2022 15:51-0400 Body mass index (BMI) [Ratio] 35 kg/m2 Dr. Jaya Jung Work Phone: [facility] Work Phone: 05-13-2022 15:51-0400 Body weight 89.[address] Jaya Jung Work Phone: [facility] Work Phone: 05-13-2022 15:51-0400 Diastolic blood pressure 73 mm[Hg] Dr. Jaya Jung Work Phone: [facility] Work Phone: 05-13-2022 15:51-0400 Heart rate 66 /min Dr. Jaya Jung Work Phone: [facility] Work Phone: 05-13-2022 15:51-0400 Respiratory rate 16 /min Dr. Jaya Jung Work Phone: [facility] Work Phone: 05-13-2022 15:51-0400 SaO2% (BldA) [Mass fraction] 97 % Dr. Jaya uJng Work Phone: [facility] Work Phone: 05-13-2022 15:51-0400 Systolic blood pressure 144 mm[Hg] Dr. Jaya Jung Work Phone: [facility] Work Phone: 02-03-2022 12:52-0400 Body height 160.[address] Jaya Jung Work Phone: [facility] Work Phone: 02-03-2022 12:52-0400 Body mass index (BMI) [Ratio] 33.5 kg/m2 Dr. Jaya Jung Work Phone: [facility] Work Phone: 02-03-2022 12:52-0400 Body weight 85.[address] Jaya Jung Work Phone: [facility] Work Phone: 02-03-2022 12:52-0400 Diastolic blood pressure 84 mm[Hg] Dr. Jaya Jung Work Phone: [facility] Work Phone: 02-03-2022 12:52-0400 Heart rate 54 /min Dr. Jaya Jung Work Phone: [facility] Work Phone: 02-03-2022 12:52-0400 Respiratory rate 18 /min Dr. Jaya Jung Work Phone: [facility] Work Phone: 02-03-2022 12:52-0400 SaO2% (BldA) [Mass fraction] 94 % Dr. Jaya Jung Work Phone: [facility] Work Phone: 02-03-2022 12:52-0400 Systolic blood pressure 144 mm[Hg] Dr. Jaya Jung Work Phone: [facility] Work Phone: 02-03-2022 12:52-0400 Body height 160.[address] Jaya Jung Work Phone: [facility] Work Phone: 02-03-2022 12:52-0400 Body mass index (BMI) [Ratio] 33.5 kg/m2 Dr. Jaya Jung Work Phone: [facility] Work Phone: 02-03-2022 12:52-0400 Body weight 85.[address] Jaya Jung Work Phone: [facility] Work Phone: 02-03-2022 12:52-0400 Diastolic blood pressure 84 mm[Hg] Dr. Jaya Jung Work Phone: [facility] Work Phone: 02-03-2022 12:52-0400 Heart rate 54 /min Dr. Jaya Jung Work Phone: [facility] Work Phone: 02-03-2022 12:52-0400 Respiratory rate 18 /min Dr. Jaya Jung Work Phone: [facility] Work Phone: 02-03-2022 12:52-0400 SaO2% (BldA) [Mass fraction] 94 % Dr. Jaya Jung Work Phone: [facility] Work Phone: 02-03-2022 12:52-0400 Systolic blood pressure 144 mm[Hg] Dr. Jaya Jung Work Phone: [facility] Work Phone: 12-12-2021 16:07-0400 Diastolic blood pressure 77 mm[Hg] Dr. Jaya Jung Work Phone: [facility] Work Phone: 12-12-2021 16:07-0400 Systolic blood pressure 160 mm[Hg] Dr. Jaya Jung Work Phone: [facility] Work Phone: 12-12-2021 15:48-0400 Body height 160.[address] Jaya Jung Work Phone: [facility] Work Phone: 12-12-2021 15:48-0400 Body mass index (BMI) [Ratio] 33.8 kg/m2 Dr. Jaya Jung Work Phone: [facility] Work Phone: 12-12-2021 15:48-0400 Body temperature 98.1 [degF] Dr. Jaya Jung Work Phone: [facility] Work Phone: 12-12-2021 15:48-0400 Body weight 86.[address] Jaya Jung Work Phone: [facility] Work Phone: 12-12-2021 15:48-0400 Heart rate 52 /min Dr. Jaya Jung Work Phone: [facility] Work Phone: 12-12-2021 15:48-0400 Respiratory rate 20 /min Dr. Jaya Jung Work Phone: [facility] Work Phone: 12-12-2021 15:48-0400 SaO2% (BldA) [Mass fraction] 94 % Dr. Jaya Jung Work Phone: [facility] Work Phone: 09-13-2021 07:28-0500 Body mass index (BMI) [Ratio] 34.9 kg/m2 Dr. Jaya Jung Work Phone: [facility] Work Phone: 09-13-2021 07:28-0500 Body weight 89.[address] Jaya Jung Work Phone: [facility] Work Phone: 09-13-2021 07:28-0500 Diastolic blood pressure 81 mm[Hg] Dr. Jaya Jung Work Phone: [facility] Work Phone: 09-13-2021 07:28-0500 Heart rate 56 /min Dr. Jaya Jung Work Phone: [facility] Work Phone: 09-13-2021 07:28-0500 Respiratory rate 16 /min Dr. Jaya Jung Work Phone: [facility] Work Phone: 09-13-2021 07:28-0500 SaO2% (BldA) [Mass fraction] 94 % Dr. Jaya Jung Work Phone: [facility] Work Phone: 09-13-2021 07:28-0500 Systolic blood pressure 181 mm[Hg] Dr. Jaya Jung Work Phone: [facility] Work Phone: Encounters Encounter Date Encounter Type Care Provider Facility Start: 04-24-2025 End: 04-24-2025 ambulatory [facility] Start: 04-17-2025 ambulatory Jens Christine Facility:[facility] Start: 04-17-2025 End: 04-17-2025 ambulatory [facility] Facility:[facility] Start: 04-14-2025 End: 04-14-2025 ambulatory Rosalind Moses Facility:[facility] Start: 03-13-2025 End: 03-13-2025 ambulatory Cabrera Hale NP Facility:[facility] Start: 03-11-2025 End: 03-11-2025 [facility] Start: 03-01-2025 End: 03-01-2025 ambulatory Moe Mccarthy Facility:[facility] Start: 01-13-2025 End: 01-13-2025 ambulatory Rosalind Moses Facility:[facility] Start: 01-11-2025 End: 01-11-2025 ambulatory Jaya Chi Erich Facility:[facility] Start: 12-28-2024 End: 12-28-2024 Office outpatient new 45 minutes Rere Duncan MD Work Phone: [facility] Cardiology [place] Comment on above: Atrial flutter, unsp ecified type (HCC) (Primary Dx); Persistent atrial fibrillation (HCC); At risk for stroke; Anticoagulant long-term use Start: 12-28-2024 End: 12-28-2024 ambulatory JAYA CHI ERICH Facility:[facility] Start: 12-05-2024 End: 12-05-2024 ambulatory Jaya Chi Erich Facility:[facility] Start: 11-24-2024 End: 11-24-2024 ambulatory [facility] Facility:[facility] Start: 10-30-2024 End: 10-30-2024 Emergency department patient visit [facility] Facility:[facility] Start: 10-20-2024 End: 10-20-2024 ambulatory oJse Webster NP Facility:[facility] Start: 10-20-2024 End: 10-20-2024 ambulatory Jaya Chi Erich Facility:[facility] Start: 10-11-2024 ambulatory Jonathan Gerard Facility:[facility] Start: 10-11-2024 End: 10-11-2024 ambulatory Jonathandemetri Gerard Facility:[facility] Start: 09-15-2024 End: 09-15-2024 ambulatory Rosalind Moses Facility:[facility] Start: 09-14-2024 End: 09-14-2024 ambulatory Meo Mccarthy Facility:[facility] Start: 09-07-2024 End: 09-07-[address] BONNIE JUNG MD Facility:[facility] Start: 09-01-2024 End: 09-05-2024 ambulatory BENNY SMITH MD Facility:[facility] Start: 09-01-2024 End: 09-05-2024 Outreach Lab BENNY SMITH MD [facility] Start: 08-31-2024 End: 09-04-[address] BONNIE JUNG MD Facility:[facility] Start: 08-31-2024 End: 09-04-2024 Outreach Lab BENNY SMITH MD [facility] Start: 08-19-2024 ambulatory Sabra Arias Facility:[facility] Start: 08-19-2024 End: 08-19-2024 ambulatory Cabrera Hale [employer] Facility:[facility] Start: 08-16-2024 ambulatory Cabrera Hale [employer] Facili ty:[facility] Start: 08-15-2024 ambulatory Jonathan Gerard Facility:[facility] Start: 08-15-2024 End: 08-15-2024 ambulatory Cabrera Hale [employer] Facility:[facility] Start: 08-02-2024 End: 08-02-2024 ambulatory Cabrera Hale [employer] [facility] Start: 07-12-2024 End: 07-12-2024 ambulatory Karl Villar Facility:[facility] Start: 06-15-2024 End: 06-15-2024 ambulatory Moe Mccarthy Facility:[facility] Start: 05-23-2024 End: 05-23-2024 ambulatory Jaya Jung Facility:[facility] Start: 09-02-2023 End: 09-03-2023 ambulatory BENNY SMITH MD Facility:[facility] Start: 03-12-2023 End: 03-12-2023 Emergency department patient visit Dr. Jaya Jung Work Phone: [facility]-Emergency Department Start: 03-05-2023 End: 03-05-[address] Jaya Jung Work Phone: [facility]-Laboratory Start: 02-11-2023 End: 02-11-[address] Jaya Jung Work Phone: [facility]-Laboratory, [facility] Office 3rd Flr Start: 02-05-2023 End: 02-05-[address] Jaya Jung Work Phone: [facility] Work Phone: Start: 02-05-2023 End: 02-05-[address] [facility] Flr Start: 01-16-2023 End: 01-16-[address] Jaya Jung Work Phone: [facility] Work Phone: Start: 01-16-2023 End: 01-16-[address] [facility] 3[facility] Flr Start: 01-07-2023 End: 01-07-[address] Jaya Jung Work Phone: [facility] 3rd Flr Start: 01-05-2023 Non-patient / Non-visit Dr. Milan Jung Work Phone: [facility] Start: 01-01-2023 Non-patient / Non-visit Dr. Milan Jung Work Phone: [facility] Start: 01-01-2023 End: 01-01-[address] Jaya Jung Work Phone: [facility] Work Phone: Start: 01-01-2023 End: 01-01-[address] Jaya Jung Work Phone: [facility]-Pulmonary Services/Neurology Start: 11-14-2022 End: 11-14-[address] Jaya Jung Work Phone: [facility] Start: 11-06-2022 End: 11-06-[address] Jaya Jung Work Phone: [facility] Phone: Start: 11-06-2022 End: 11-06-[address] Jaya Jung Work Phone: [facility]-Radiology, [facility] Start: 11-06-2022 End: 11-06-[address] Jaya Jung Work Phone: [facility] Start: 10-15-2022 End: 10-15-2022 ambulatory [facility] Work Phone: Start: 10-15-2022 End: 10-15-2022 Patient encounter procedure [facility]-Laboratory, y Office 3rd Flr Start: 07-17-2022 End: 07-17-[address] Jaya Jung Work Phone: [facility] Work Phone: Start: 07-17-2022 End: 07-17-[address] Jaya Jung Work Phone: [facility]-Laboratory, y Office 3rd Flr Start: 05-26-2022 End: 05-26-[address] Jaya Jung Work Phone: [facility] Work Phone: Start: 05-26-2022 End: 05-26-[address] Jaya Jung Work Phone: [facility]-Physical Therapy Start: 05-21-2022 End: 05-21-2022 Patient encounter procedure BENNY SMITH MD [facility] Start: 05-13-2022 End: 05-13-[address] Jaya Jung Work Phone: [facility] Start: 04-16-[address] Jaya dooley Work Phone: [facility]-Physical Therapy Start: 04-14-2022 End: 04-14-[address] Jaya Jung Work Phone: [facility]-Laboratory, y Office 3rd Flr Start: 02-05-2022 End: 02-05-[address] Jaya Jung Work Phone: [facility]-Outpatient Breast Imaging Start: 02-03-2022 End: 02-03-[address] Jaya Jung Work Phone: [facility] Start: 01-31-2022 Non-patient / Non-visit Dr. Milan Jung Work Phone: [facility] Start: 01-07-2022 End: 01-07-[address] J[facility] Start: 01-06-2022 End: 01-06-[address] J[facility] Start: 01-02-2022 End: 01-02-[address] Jaya Jung Work Phone: [facility]-Laboratory, y Office 3rd Flr Start: 12-24-2021 End: 12-24-[address] Jaya Jung [facility] Start: 12-12-2021 End: 12-12-[address] Jaya Jung Work Phone: [facility] Start: 09-30-2021 Non-patient / Non-visit Dr. Milan Jung Work Phone: [facility] Start: 09-30-2021 End: 09-30-[address] Jaya Jung Work Phone: [facility]-Cardiovascul ar Services Start: 09-13-2021 End: 09-13-[address] Jaya Jung Work Phone: [facility]-Physical Therapy Start: 09-13-2021 End: 09-13-[address] Jaya Jung Work Phone: [facility] Start: 08-27-2017 End: 08-31-2017 Ambulatory CAMILA STERLING [facility] [place] Procedures Date Procedure Procedure Detail Performing Clinician Start: 12-28-2024 Ecg routine ecg w/le ast 12 lds w/i&r Rere Duncan MD Work Phone: Start: 03-12-2023 CT of head without contrast Dr. Jaya Jung Work Phone: Start: 11-06-2022 Plain chest X-ray Dr. Tone Jung Work Phone: Start: 02-05-2022 Screening mammography Marylou Jung Work Phone: Start: 01-07-2022 Influenza Types [...] DTaP,Tdap,Td Vaccine (2 - Td or Tdap) [facility] Start: 09-28-2024 Advance Directive Discussion Advance Directive Discussion [facility] Start: 05-29-2024 Covid-19 Vaccine ( season) Covid-19 Vaccine ( season) [facility] Start: 2011 Screening for osteoporosis Bone Density Screening [facility] Start: 1996 Pneumococcal Vaccine: 50+ (1 of 1 - PCV) Pneumococcal Vaccine: 50+ (1 of 1 - PCV) [facility] Start: 1991 Diabetes Screening Diabetes Screening [facility] Start: 1964 Annual PCP Team Chronic Disease Visit Annual PCP Team Chronic Disease Visit [facility] Start: 1964 Anxiety Screening Anxiety Screening [facility] Start: 1964 BP Controlled (<130/80) BP Controlled (<130/80) [facility] Start: 1964 Depression Screening Depression Screening [facility] Start: 1964 Hepatitis C screening Hepatitis C Screening [facility] Measurement of respiratory function [facility] Patient Education [facility] Work Phone: Patient referral [facility] Work Phone: [facility] Immunizations Immunization Date Immunization Notes Care Provider Jeyson harper 07-12-2024 influenza, seasonal, injectable Rere Duncan MD Work Phone: [facility] 08-04-2023 respiratory syncytia l virus (RSV) vaccine, adjuvanted (AREXVY) Rere Duncan MD Work Phone: [facility] 07-02-2023 influenza, injectabl e, quadrivalent, contains preservative Rere Duncan MD Work Phone: [facility] 12-27-2021 COVID-19 original vaccine, full dose, monovalent (MODERNA) Rere Duncan MD Work Phone: [facility] 08-16-2020 zoster vaccine recombinant Rere Duncan MD Work Phone: [facility] 07-03-2020 influenza, injectabl e, quadrivalent, contains preservative Rere Duncan MD Work Phone: [facility] 10-20-2019 zoster vaccine recombinant Rere Duncan MD Work Phone: [facility] 06-14-2019 influenza, injectabl e, quadrivalent, contains preservative Rere Duncan MD Work Phone: [facility] 06-28-[address] Jaya Jung Work Phone: [facility] 06-18-2017 influenza, injectabl e, quadrivalent, contains preservative Rere Duncan MD Work Phone: [facility] 06-17-[address] Jaya Jung Work Phone: [facility] 06-10-2016 influenza, seasonal, injectable Rere Duncan MD Work Phone: [facility] 12-21-2015 tetanus toxoid, reduced diphtheria toxoid, and acellular pertussis vaccine, adsorbed Rere Duncan MD Work Phone: [facility] 09-16-2010 zoster vaccine, live Rere Duncan MD Work Phone: [facility] 09-11-2009 novel [id number], preservative-free, injectable Rere Duncan MD Work Phone: [facility] Payers Date Payer Category Payer Self-pay [id number] 2016 [facility] [id number] 2016 Unknown [id number] 2011 Medicare [id number] 2011 Medicare MEDICARE [id number] 2011 Medicare [id number] 1945 Unknown [id number] 2.840.1.034413.3.579. 2.627 1945 Unknown [id number] 2.840.1.530852.3.579. 2.627 1945 Unknown [id number] 2.840.1.137071.3.579. 2.627 1945 Unknown [id number] 2.16840.1.632648.3.579. 2.627 Unknown [id number] 2.16840.1.464431.3.579. 2.462 Unknown [id number] 2.16840.1.892108.3.579. 2.462 Unknown [id number] 2.16840.1.446404.3.579. 2.462 Unknown [id number] 2.16840.1.040379.3.579. 2.462 Unknown [id number] 2.16.840.1.019186.3.579. 2.462 Unknown [id number] 2.16840.1.882091.3.579. 2.462 Unknown [id number] 2.16.840.1.216937.3.579. 2.462 Unknown [id number] 2.840.1.217150.3.579. 2.462 Unknown [id number] 2.16840.1.245317.3.579. 2.462 Unknown [id number] 2.840.1.705390.3.579. 2.462 Unknown [id number] 2.840.1.538769.3.579. 2.462 Unknown [id number] 2.840.1.121339.3.579. 2.462 Unknown [id number] 2.840.1.349088.3.579. 2.462 Unknown [id number] 2.840.1.254990.3.579. 2.462 Unknown [id number] 2.840.1.211231.3.579. 2.462 Unknown [id number] 2.840.1.963441.3.579. 2.462 Unknown [id number] 2.840.1.392260.3.579. 2.462 Unknown [id number] .840.1.948168.3.579. 2.462 Unknown [id number] .840.1.197261.3.579. 2.462 Unknown [id number] 2.840.1.293758.3.579. 2.462 Unknown [id number] 2.840.1.301005.3.579. 2.462 Unknown [id number] 2.840.1.983788.3.579. 2.462 Unknown [id number] 2.16.840.1.893161.3.579. 2.462 Unknown [id number] 2.16.840.1.215107.3.579. 2.462 Unknown [id number] 2.16.840.1.780237.3.579. 2.462 Unknown [id number] 2.16.840.1.162669.3.579. 2.462 Unknown [id number] 2.16.840.1.146254.3.579. 2.462 Unknown [id number] 2.16.840.1.338761.3.579. 2.462 Unknown [id number] 2.16.840.1.991840.3.579. 2.462 Unknown [id number] 2.16.840.1.993343.3.579. 2.462 Social History Date Type Detail Facility Start: 12-12-2021 End: 03-12-2023 Tobacco smoking status [facility] Unknown if ever smoked [facility] Start: 08-16-2018 None [facility] Start: 1945 Sex Assigned At Female A [facility] Start: 08-30-2020 End: 12-28-2024 Tobacco smoking status Never smoked tobacco (finding) [facility] History of tobacco use Passive smoker [facility] Start: 12-28-2024 Tobacco use and exposure Smokeless tobacco non-user [facility] Start: 12-28-2024 Alcoholic beverage intake Current non-drinker of alcohol (finding) [facility] Start: 12-28-2024 History of Social function [facility] Start: 12-28-2024 Tobacco use panel [facility] National Score (1-10 0), lower number is lower risk 66 [facility] Start: 1945 [facility] assigned [facility] Goals Date Patient Goal Desired Activity /State Personal health goal Clinical Notes 08-11-2017 to 04-17-2025 Rere Dnucan MD - 12/28/2024 10:20 AM EDT Note Date & Type Note Facility 04-17-2025 Note [facility] Medical Records Department [address] [place] [address] History and Physical 04/17/25 0952 MR#: [id number] Acct: [id number] Name: ITZ VEGAS Rep #: [id number] : 1945 79 From: Jonathan Gerard MD PCP: Dr. Jaya Jung MD Status:[facility] Location: [facility] History of Present Illness Details: ITZ VEGAS, [...] syncopal episodes, and headaches. Intake Vital Signs 01/13/2507:38 04/17/2512:18 04/17/2512:20 Height 5 ft 2 in Blood Pressure [...] Mother Atrial fibrillation Diabetes Heart disease Parkinson diseaseFather Atrial fibrillation CVA (cerebral vascular accident) Diabetes Heart disease Cancer lung cancer with mets to spineBrother CVA (cerebral vascular accident) Cancer bladder cancerBrother Cancer lung cancer Social History Smoking Status: Never smoker alcohol intake: never substance use type: does not use what type of physical activity do you participate in: walking and other details: casey sneakeraquiles ROS Const Const: Negative for fatigue, weakness, headache(s) or frequent falls Eyes Eyes: Negative for blurry vision ENT ENT: Negative for headache(s), dizziness, Nosebleed/epistaxis or balance probl (more content not included)... [facility] 12-28-2024 History of Present illness Narrative PRIMARY CARE PHYSICIAN: Jaya Jung MD [address] [place] [address] REFERRING PHYSICIAN: Rosalind Moses ([facility]) [address] [facility] [address] Patient Care Team: Jaya Jung Chi as PCP - General (Gerontology) Rosalind Moses PA-C as Physician Data Entry Manager (Cardiology) Jonathan Gerard MD as Specialty Careers Adviser (Cardiology) CHIEF COMPLAINT: Evaluation of arrhythmia HISTORY OF PRESENT ILLNESS: Ms. Vegas is a 79 year old female who presents today for evaluation of atrial fibrillation, referred by [facility]. The patient is a 79-year-old [...] in stress levels since moving to [facility], where she feels happier and more independent. [...] daily (150 mg + 75 mg), and bnlc-gys-fvscaco vitamin D3 with vitamin K. I have [...] Sinus bradycardia 58 bpm; first-degree AV block ([place] 212 ms); normal QRS duration 78 ms; [...] 4 - Moderate documented in this encounter [facility] 12-28-2024 Note HNO ID: [id number] Author: RERE DUNCAN MD Service: ? Author Type: Physician Type: Progress Notes Filed: 12/28/2024 21:26 Note Text: PRIMARY CARE PHYSICIAN: Jaya Jung MD [address] [address] REFERRING PHYSICIAN: Rosalind Moses ([facility]) [address] [facility] [address] Patient Care Team: Jaya Jung Chi as PCP - General (Gerontology) Rosalind Moses PA-C as Physician Data Entry Manager (Cardiology) Jonathan Gerard MD as Specialty Careers Adviser (Cardiology) CHIEF COMPLAINT: Evaluation of arrhythmia HISTORY OF PRESENT ILLNESS: Ms. Vegas is a 79 year old female who presents today for evaluation of atrial fibrillation, referred by [facility]. The patient is a 79-year-old [...] in stress levels since moving to [facility], where she feels happier and more independent. [...] daily (150 mg + 75 mg), and sspk-tya-kdywsjs vitamin D3 with vitamin K. I have [...] Smoking (more content not included)... [facility] 01-01-2023 Procedure note [facility] 08-06-2021 Evaluation note Diagnosis Onset Date Atrial flutter with rapid ventricular response August 06, 2021 acute Essential hypertension chron ic HLD (hyperlipidemia) chronic Bradycardia acute Essential hypertension [facility] Work Phone: 1(125) 874-116511-09-2021 Evaluation note* Diagnosis Onset Date Resolution Status Ankle edema acute Atrial flutter with rapid ventricular response Novembe r 2020 acute Essential hypertension [facility] Work Phone: 1(831) 836-470811-09-2021 Evaluation note* Diagnosis Onset Date Resolution Status Atrial flutter with rapid ventricular response Novembe r 2020 acute Bradycardia acute [place] [facility] current use of amiodarone acute Essential hypertension chron ic HLD (hyperlipidemia) chronic Acute bronchitis acute [facility] Work Phone: 1(756) 998-612511-14-2017 Evaluation note* Diagnosis Onset Date Resolution Status Bradycardia acute Essential hypertension chron ic Bradycardia acute Postoperative atrial fibrillation August 11, 2017 acute Essential hypertension chron ic HLD (hyperlipidemia) [facility] Work Phone: 1(730) 935-272711-14-2017 Evaluation note* Diagnosis Onset Date Resolution Status Bradycardia acute Postoperative atrial fibrillation August 11, 2017 acute Essential hypertension chron ic HLD (hyperlipidemia) [facility] Work Phone: 1(950) 471-246811-14-2017 Evaluation note* Diagnosis Onset Date Resolution Status Bradycardia acute Postoperative atrial fibrillation August 11, 2017 acute Essential hypertension chron ic HLD (hyperlipidemia) chronic Ankle edema acute Atrial flutter with rapid ventricular response Novembe r 2020 acute Essential hypertension [facility] Work Phone: Discharge summary Author Dr. Rogers [facility] March 12, 2023 12:06pm Note Date/Time March 12, 2023 10:4 0am [facility] Medical Records Department [address] [place] [address] Emergency Department Summary 03/12/23 MR#: [id number] Acct: [id number] Name: ITZ VEGAS Rep #:[id number] : 1945 77 From: Neville Rogers MD [...] similar symptoms: No Recent Illness/Hospitalization: No PFSH PFS Medical History Acute pyelonephritis Atrial fibrillation with [...] clonus or Babinski sign noted. The metria. [place] Coma Scale: document GCS findings Spontaneous Obeys [...] your Primary Care Provider. Call [facility] ([phone]) or report to the closest Emergency Room. Call 911 if necessary. 03/12/23 1206 <Electronically signed by Neville Rogers MD> Cosigner Signature (if applicable): CC: Dr. Jaya Jung MD ~ Signed [facility] Work Phone: Evaluation + Plan note No data available for this section [facility] Evaluation + Plan note Future Appointments Appointment Date:09/07/2024 10:00:00 AM Scheduled Provider:BENNY SMITH MD Location:UROLOGY Appointment Type:URO Off Proc [facility] Evaluation note* Diagnosis Onset Date Resolution Status Bradycardia acute Essential hypertension chron ic [facility] Work Phone: Evaluation noteNo assessment information available [facility] Work Phone: Evaluation note* Diagnosis Onset Date Resolution Status Acute bronchitis acute [facility] Work Phone: Evaluation note* Diagnosis Atrial flutter, unspecified type (HCC)- Primary Persistent atrial fibrillation (HCC) Atrial fibrillation At risk for stroke Other specified personal history presenting hazards to health Anticoagulant long-term use Long-term (current) use of anticoagulants [facility] No data available for this section [facility] Hospital Discharge instructions Additional Instructions 1. Hold your Eliquis for 2 days, 4 doses 2. If you develop a severe headache, nausea vomiting or any concerns return [facility] the [facility] Work Phone: Progress note No data available for this section [facility] Summary Purpose Family History No Family [...] Date/ Time Living Will Yes August 22 9:11am Power of Pullman Clerk Yes August 22, 2019 9:11am Advance Directive Response Recorded Date/ Time Living Will Yes August 22 8:11am Power of Pullman Clerk Yes August 22, 2019 8:11am Advance Directive Response Recorded Date/ Time Name of Medical Power of Pullman Clerk alisa RONQUILLO March 12, 2023 10:28am Living Will Yes March 12, 2023 10:28am Power of Pullman Clerk Yes March 12 10:28am Chief Complaint and [...] Atrial flutter with rapid ventricular response Bradycardia bay stocker current use of amiodarone Essential hypertension HLD (hyperlipidemia) Acute bronchitis Chief Complaint 6 M FU COUGH, HEADACHE ENVIRONMENTAL ADVISER DRUG THERAPY ENVIRONMENTAL ADVISER DRUG THERAPY Amb Documentation Reason for Visit Atrial flutter with rapid ventricular response Bradycardia bay stocker current use of amiodarone Essential hypertension HLD (hyperlipidemia) Acute bronchitis Chief Complaint COUGH, HEADACHE RESIDENTIAL DRUG THERAPY ENVIRONMENTAL ADVISER DRUG THERAPY Amb Documentation fall, hematoma Reason for Visit Acute bronchitis Additional Source Comments INFORMATION SOURCE (unrecogn ized section and content) DATE CREATED AUTHOR 03/23/[address] [facility] DATE CREATED AUTHOR AUTHOR'S ORGANIZ ATION 09/13/2023 [facility] ([place]) DATE CREATED AUTHOR AUTHOR'S ORGANIZ ATION 10/06/2024 [facility] DATE CREATED AUTHOR AUTHOR'S ORGANIZ ATION 10/14/2024 [facility] DATE CREATED AUTHOR AUTHOR'S ORGANIZ ATION 12/31/2024 [facility] DATE CREATED AUTHOR AUTHOR'S ORGANIZ ATION 04/24/2025 [facility] Goals (unrecognized section and content) Goals may [...] Role: Primary Care Physician Address: Address: [facility] [address] [place] [address]- Care Team Related Persons Name: JOSIASANDREACABRERA Care Teams (unrecognized sec tion and content) [...] Care Provider, Referring Provider Active Cabrera Hale [employer], [employer]C Attending Provider Active Team Status: Inactive Member Role Status Dates Dr. Jaya Jung MD Primary Care Provider, Referring Provider Active Dragan HALL, PA Attending Provider Active Team Status: Inactive Member Role Status Dates Dr. Jaya Jung MD Primary Care Provider Active Cabrera Hale [employer], [employer] Attending Provider Active Team Status: Active Member Role Status Dates Dr. Jaya Jung MD Primary Care Provider Active Cabrera Hale [employer], [employer]C Referring Provider, Other Provi more Active Dr. Jens Christine DO Attending Provider Active Team Status: Active Member Role Status Dates Dr. Jaya Jung MD Primary Care Provider Active Jose Webster [employer], [employer]C Attending Provider Active Team Status: Inactive Member Role Status Dates Dr. Jaya Jung MD Primary Care Provider Active Cabrera Hale [employer], [employer]-C Attending Provider, Referring P nohemy Active Team [...] Dr. Neville Rogers MD Emergency Provider Active Tester Vibrator Equipment Relationship Specialty Start Date End Date Jaya Jung Chi [address] [place] [address] PCP - General Gerontology 12/04/24 Rosalind Moses, PA-C [address] [place], [place] [address] Physician Data Entry Manager Cardiology 12/04/24 Jonathan Gerard MD [address] [place], [place] [address] Specialty Careers Adviser Cardiology 12/28/24 Source Comments (unrecognize d section and content) In the event this informatio n is protected by the Federal Confidentiality of Alcohol and Drug Abuse Patient Records regulations: The Federal rules restrict any use of the information to criminally investigate or prosecute any alcohol or drug abuse patient.[facility] Reason for Visit (unrecogniz ed section and content) Reason Comments New Patient Ref from [facility] for atr ial flutter FOR RECORDS PERTAINING [...] BE BASED ON THE PRIMARY CLINICAL RECORDS. [employer] [facility]. provides no warranty or guarantee of the accuracy or completeness of information in this document.
== END | disposition home or self-care (01) ==
LOC: POLAB3 11:44
PROVIDERS: PCP Family Medicine Geriatric Medicine; Visit Provider Family Medicine Geriatric Medicine
DX: J98.8 Other specified respiratory disorders (principal); R06.02 Shortness of breath
CPT/HCPCS: 87631

== ENCOUNTER → 2025-05-30 | Outpatient (CLI) | payer MEDICARE, BC, SELFPAY ==
--- NOTE | 2025-05-30 14:25 | RAD_ITS ---
PROCEDURE: CHEST PA AND LATERAL 05/30/2025 REASON FOR EXAM: SOB/CONGESTION OF RESP TRACT TECHNIQUE: Procedure Code: RADCXR Modality: DX Procedure: CHEST PA AND LATERAL COMPARISON: 03/11/25 FINDINGS: Mild pulmonary vascular congestion. Bibasilar subsegmental atelectasis. No focal consolidation. No pleural effusion or pneumothorax. Cardiac silhouette is within normal limits. No acute fractures. Stable multilevel compression deformities of the thoracic spine. RAD/Chest PA and Lateral IMPRESSION: Mild pulmonary vascular congestion. no focal consolidation. Reading Location: [facility]
== END | disposition home or self-care (01) ==
PROVIDERS: PCP Family Medicine Geriatric Medicine; Referring Provider Family Medicine Geriatric Medicine; Visit Provider Family Medicine Geriatric Medicine
DX: R06.02 Shortness of breath (principal); J98.8 Other specified respiratory disorders
CPT/HCPCS: 71046

== ENCOUNTER → 2025-05-31 | Outpatient (CLI) | payer MEDICARE, BC, SELFPAY ==
--- NOTE | 2025-05-31 14:16 | CT_ITS ---
PROCEDURE: CTA CHEST W/WO CONTRAST 05/31/2025 REASON FOR EXAM: SOB TECHNIQUE: Procedure Code: [id number] Modality: CT Procedure: CTA CHEST W/WO CONTRAST Multiplanar Sagittal and Coronal images were obtained. 3D post processing was performed CONTRAST: Isovue 370 VOLUME: 100 mL One or more dose reduction techniques were used (e.g., Automated exposure control, adjustment of the mA and/or kV according to patient size, use of iterative reconstruction technique). RADIATION DOSE SUMMARY: CTDlvol: 18 mGy DLP: 441 mGycm COMPARISON: May 30, 2025, March 11, 2025 # of known CTs in the past 12 months: 0 # of known Cardiac Nuclear Medicine Studies in the past 12 months: 0 FINDINGS: Thoracic Aorta: Examination was not timed for the evaluation of the aorta. The proximal aorta and aortic arch are opacified with contrast and there is no evidence of dissection in this portion. The descending thoracic aorta is not particularly opacified by contrast material. Ascending thoracic aorta at the level of main pulmonary artery is 3.7 cm transverse. Heart: Normal size. No pericardial effusion. Coronary arteries are unremarkable. Pulmonary Vessels: The timing and quality of the contrast bolus is diagnostic. There is no evidence of acute or chronic pulmonary embolus. Hardware: None Lymph nodes: None appear enlarged Lungs and Airways: Mild respiratory motion artifact. Minimal atelectasis of the lung bases no consolidation, mass or worrisome nodule. Mild bronchial wall thickening in the lower lobes with some mucus in the nondistended segmental bronchi, [id number]-left. Pleura: No pleural effusion or pneumothorax Upper Abdomen: Unremarkable Bones: Bone mineralization is decreased. Vertebral plana at T5. Grade 2/grade 3 anterior wedge compression T7. This is associated with kyphosis of the upper thoracic spine. 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 Rudimentary disc space at that level. CT/CTA Chest W/WO Contrast IMPRESSION: 1. No evidence of acute or chronic pulmonary embolus. 2. Mild segmental bronchiolitis and minimal mucous in the lumen of the bronchi serving portions of the lower lobes. Minimal atelectasis of the lower lobes. 3. No change in the compression fractures of the thoracic spine. Decreased paige ne mineralization. Correlate with risk factors. Reading Location: [id number]
== END | disposition home or self-care (01) ==
LOC: CT 14:14
PROVIDERS: PCP Family Medicine Geriatric Medicine; Referring Provider Family Medicine Geriatric Medicine; Visit Provider Family Medicine Geriatric Medicine
DX: R06.02 Shortness of breath (principal)
CPT/HCPCS: 71275; Q9967; A4216

== ENCOUNTER → 2025-06-01 | Outpatient (CLI) | payer MEDICARE, BC, SELFPAY | END | disposition home or self-care (01) | LOC: LABSPEC 12:00 | PROVIDERS: PCP Family Medicine Geriatric Medicine; Referring Provider Family Medicine Geriatric Medicine; Visit Provider Family Medicine Geriatric Medicine | DX: J18.9 Pneumonia, unspecified organism (principal) | CPT/HCPCS: 87070; 87077; 87186; 87205 ==

== ENCOUNTER → 2025-07-24 | Outpatient (CLI) | payer MEDICARE, BC, SELFPAY ==
[2025-07-24 10:40] LABS: Hematocrit 43.5 % (37-47); Hemoglobin 14.5 g/dL (12.0-15.0); Immature Granulocytes Count 0.060 X10^3/uL (0.0-0.0); Mean Corp Hgb Conc 33.3 g/dL (32-36); Mean Corpuscular Volume 96.2 fL (81-99); Mean Platelet Vol. 10.7 fl (6.2-12.0); NRBC Flagged by Analyzer 0 % (0-5); Platelet Count 366 K/mm3 (150-450); RBC Distribution Width CV 13.5 % (11.6-14.6); RBC Distribution Width SD 47.8 fl (35.1-43.9); Red Blood Count 4.52 M/mm3 (4.2-5.4); White Blood Count 13.1 K/mm3 (4.4-11.0)
[2025-07-24 12:23] LABS: AST(SGOT) 19 U/L (<=31); Alanine Aminotransfer ALT/SGPT 18 U/L (<=34); Albumin, Serum 4.4 g/dL (3.4-4.8); Alkaline Phosphatase 84 U/L (35-104); Anion Gap 9 (5-15); BUN 15 mg/dL (4-19); BUN/Creat Ratio 23.9 RATIO (10-20); Calcium,Total 10.1 mg/dL (7.6-11.0); Carbon Dioxide 32.4 mmol/L (21.0-32.0); Chloride 101 mmol/L (98-108); Globulin 2.4 g/dL (2.2-4.2); Glucose 118 mg/dL (70-99); Potassium 5.3 mmol/L (3.3-5.1); Vitamin D,25 Hydroxy 34.4 ng/mL (30-100)
[2025-07-24 18:26] LABS: Xtra Tube Kwok EXTRA TUBE
== END | disposition home or self-care (01) ==
LOC: POLAB3 10:25
PROVIDERS: PCP Family Medicine Geriatric Medicine; Visit Provider Family Medicine Geriatric Medicine
DX: E11.65 Type 2 diabetes mellitus with hyperglycemia (principal); E55.9 Vitamin D deficiency, unspecified; I10 Essential (primary) hypertension; Z79.899 Other long term (current) drug therapy
CPT/HCPCS: 36415; 80053; 82306; 84443; 85025

== ENCOUNTER → 2025-07-25 | Outpatient (CLI) | payer MEDICARE, BC, SELFPAY ==
[2025-07-25 10:43] LABS: Anion Gap 11 (5-15); BUN 13 mg/dL (4-19); BUN/Creat Ratio 23.1 RATIO (10-20); Calcium,Total 9.4 mg/dL (7.6-11.0); Carbon Dioxide 29.1 mmol/L (21.0-32.0); Chloride 97 mmol/L (98-108); Glucose 116 mg/dL (70-99); Potassium 4.9 mmol/L (3.3-5.1)
[2025-07-25 17:39] LABS: Xtra Tube Kwok EXTRA TUBE
== END | disposition home or self-care (01) ==
LOC: POLAB3 09:38
PROVIDERS: PCP Family Medicine Geriatric Medicine; Visit Provider Family Medicine Geriatric Medicine
DX: I10 Essential (primary) hypertension (principal)
CPT/HCPCS: 36415; 80048

== ENCOUNTER → 2025-08-10 | Outpatient (CLI) | payer MEDICARE, BC, SELFPAY | END | disposition home or self-care (01) | PROVIDERS: PCP Family Medicine Geriatric Medicine; Referring Provider Nurse Practitioner Gerontology; Visit Provider Nurse Practitioner Gerontology | DX: Z79.899 Other long term (current) drug therapy (principal) | CPT/HCPCS: 94060; 94726; 94729 ==

== ENCOUNTER → 2025-09-05 | Outpatient (CLI) | payer MEDICARE, BC, SELFPAY | END | disposition home or self-care (01) | LOC: POLAB3 15:11 | PROVIDERS: PCP Family Medicine Geriatric Medicine; Visit Provider Family Medicine Geriatric Medicine | DX: R06.2 Wheezing (principal) | CPT/HCPCS: 87631 ==